=== PATIENT | female | born 1935 | race Caucasian/White ===

== ENCOUNTER → 2023-10-06 | Outpatient (CLI) | payer MEDICARE, SELFPAY ==
[2023-10-06 11:43] LABS: EXAGEN MAILED SPECIMEN
[2023-10-06 12:46] LABS: Erythrocyte Sedimentation Rate 5 mm/hr (0-30)
[2023-10-06 12:56] LABS: Absolute Lymphocyte Count 0.93 X10^3/uL (0.83-4.51); Absolute Neutrophil Count 4.7 X10^3/uL (2.0-7.7); Basophil# 0.04 X10^3/uL; Basophil% 0.6 % (0-1); Eosinophil# 0.11 X10^3/uL; Eosinophils% 1.7 % (0-5); Hematocrit 36.4 % (37-47); Hemoglobin 11.6 g/dL (12.0-15.0); Lymphocyte # 0.93 X10^3/ul (0.83-4.51); Lymphocyte % 14.7 % (19-41); Mean Corp Hgb Conc 31.9 g/dL (32-36); Mean Corpuscular Hgb 30.6 pg (27.0-32.0); Mean Platelet Vol. 9.2 fl (6.2-12.0); Monocyte# 0.47 X10^3/uL; Monocyte% 7.4 % (0-10); NRBC Flagged by Analyzer 0 % (0-5); Neutrophil # 4.73 X10^3/uL (2.7-7.7); Neutrophil % 75.1 % (47-70); Platelet Count 266 K/mm3 (150-450); RBC Distribution Width CV 14.1 % (11.6-14.6); RBC Distribution Width SD 49.5 fl (35.1-43.9); Red Blood Count 3.79 M/mm3 (4.2-5.4); White Blood Count 6.3 K/mm3 (4.4-11.0)
[2023-10-06 14:12] LABS: AST(SGOT) 40 U/L (15-37); Alanine Aminotransfer ALT/SGPT 51 U/L (13-56); Albumin, Serum 3.5 g/dL (3.2-5.0); Alkaline Phosphatase 106 U/L (45-117); Anion Gap 9 (5-15); BUN 25 mg/dL (7-18); BUN/Creat Ratio 22.5 RATIO (10-20); CRP < 2.90 mg/L (0.0-3.0); Calcium,Total 8.9 mg/dL (8.5-10.1); Chloride 108 mmol/L (98-107); Creatinine, Serum 1.11 mg/dL (0.55-1.02); EST Glomerular Filtration Rate 50 mL/min (>60); Est Glom Filt Rate - Afr Amer 60 mL/min (>60); Globulin 3.6 g/dL (2.2-4.2); Glucose 98 mg/dL (74-106); Hepatitis B Surface Antibody Non-Reactive; Hepatitis B Surface Antigen Non-Reactive (Nonreactive); Hepatitis C Antibody Non-Reactive (Nonreactive); Potassium 3.8 mmol/L (3.5-5.1); Protein, Total 7.1 g/dL (6.4-8.2); Sodium Level 141 mmol/L (136-145)
[2023-10-06 15:17] LABS: Color, Urine Yellow (Yellow); Glucose, Dipstick Normal (Normal); Ketone-Dipstick Negative (Negative); Leukocyte Esterase-Dipstick Negative /ul (Negative); Nitrite-Dipstick Negative (Negative); Occult Blood-Urine Negative /ul (Negative); Protein-Dipstick 15 mg/dl (Negative); Urine Bilirubin Dipstick Negative (Negative); Urine Clarity Clear (Clear); Urine Urobilinogen 1 mg/dl (Normal)
[2023-10-06 15:42] LABS: Protein, Urine (Random) 31.1 mg/dL (<11.9); Protein:Creat Ratio 299 mg/g CRE (0-200)
== END | disposition home or self-care (01) ==
LOC: MTLAB 10:29
PROVIDERS: PCP Nurse Practitioner Family; Referring Provider Internal Medicine Rheumatology; Visit Provider Internal Medicine Rheumatology
DX: M06.4 Inflammatory polyarthropathy (principal); R76.8 Other specified abnormal immunological findings in serum; M79.7 Fibromyalgia
CPT/HCPCS: 36415; 80053; 81002; 82570; 84156; 85025; 85652; 86140; 86706; 86803; 87340

== ENCOUNTER → 2023-10-14 | Outpatient (CLI) | payer MEDICARE, SELFPAY ==
--- NOTE | 2023-10-14 13:18 | BI_ITS ---
MAMMOGRAPHY - BILATERAL SCREENING REASON FOR EXAM: Female, 88 years old. Routine annual screening examination. PERTINENT HISTORY: Non-contributory. TECHNIQUE: Digital bilateral breast angelo (3D mammographic acquisition) in the CC and MLO projections. 2-D mediolateral oblique (MLO) and craniocaudad (CC) views of both breasts were obtained. CAD: Full Field Digital Mammography with Computer Added Detection was performed. COMPARISON: Comparison is made with prior examination of March 28, 2017. FINDINGS: Breast Composition: There are scattered areas of fibroglandular density. There are no dominant masses or suspicious calcifications. Stable bilateral secretory calcification. No other significant abnormalities are identified. There has been no significant change since the prior study. BI/SCRN MAMM (CAD)W/ANGELO BILAT IMPRESSION: Stable bilateral screening mammogram. Yearly follow-up mammogram recommended. (A) ASSESSMENT CATEGORY: BIRADS Category 2: Benign. A letter regarding these results will be sent to the patient by the facility within 30 days. Approximately 10% of breast cancers are not detected by mammography. A normal mammogram should not delay biopsy of a clinically suspicious abnormality. [id number] Electronically Signed: Theodore Ventura MD at 12:33 EDT ,
--- NOTE | 2023-10-14 13:21 | BD_ITS ---
STUDY: DUAL ENERGY X-RAY ABSORPTIOMETRY / DXA REASON FOR EXAM: Female, 88 years old. Z78.0 TECHNIQUE: Bone Mineral Density (BMD) measurements of lumbar spine and bilateral hips were obtained. COMPARISON: None. FINDINGS: Lumbar Spine (L1-L4): g/cm2 (1.033) / T-score (-0.4) / Z-score (2.5) Findings are suggestive of normal bone density with a low fracture risk. Left Femur Total: g/cm2 (0.682) / T-score (-2.1) / Z-score (0.2) Left Femoral Neck: g/cm2 (0.518) / T-score (-3.0) / Z-score (-0.5) Right Femur Total: g/cm2 (0.713) / T-score (-1.9) / Z-score (0.5) Right Femoral Neck: g/cm2 (0.560) / T-score (-2.6) / Z-score (-0.1)
== END | disposition home or self-care (01) ==
LOC: OPBD 13:12
PROVIDERS: PCP Nurse Practitioner Family; Referring Provider Nurse Practitioner Family; Visit Provider Nurse Practitioner Family
DX: Z12.31 Encounter for screening mammogram for malignant neoplasm of breast (principal); M81.0 Age-related osteoporosis without current pathological fracture
CPT/HCPCS: 77063; 77067; 77080

== ENCOUNTER → 2023-11-10 | Outpatient (CLI) | payer MEDICARE, SELFPAY ==
[2023-11-10 15:51] LABS: T4 Free Direct 1.48 ng/dL (0.76-1.46)
== END | disposition home or self-care (01) ==
LOC: BFHLAB 11:25
PROVIDERS: PCP Nurse Practitioner Family; Referring Provider Nurse Practitioner Family; Visit Provider Nurse Practitioner Family
DX: E03.9 Hypothyroidism, unspecified (principal)
CPT/HCPCS: 36415; 84439; 84443

== ENCOUNTER 2023-11-12 12:09 | Outpatient (CLI) | payer MEDICARE, SELFPAY ==
[2023-11-12 12:35] VITALS: BP 139/63; PULSE 56; RESP 16; TEMP 36.3; O2SAT 100; BMI 22.6
[2023-11-12] MEDS: Zoledronic Acid 5 MG 100 ML 300 MG IV (12:53)
[2023-11-12 13:18] VITALS: BP 143/64; PULSE 50
== END 2023-11-12 23:59 | disposition home or self-care (01) ==
LOC: MEDOUTP 12:11
PROVIDERS: PCP Nurse Practitioner Family; Referring Provider Nurse Practitioner Family; Visit Provider Nurse Practitioner Family
DX: M81.0 Age-related osteoporosis without current pathological fracture (principal)
CPT/HCPCS: 96365; A4216; J3489

== ENCOUNTER → 2023-12-10 | Outpatient (CLI) | payer MEDICARE, SELFPAY ==
[2023-12-10 10:52] LABS: Absolute Lymphocyte Count 0.56 X10^3/uL (0.83-4.51); Absolute Neutrophil Count 5.7 X10^3/uL (2.0-7.7); Basophil# 0.05 X10^3/uL; Basophil% 0.7 % (0-1); Eosinophil# 0.24 X10^3/uL; Eosinophils% 3.4 % (0-5); Hematocrit 31.7 % (37-47); Hemoglobin 10.1 g/dL (12.0-15.0); Lymphocyte # 0.56 X10^3/ul (0.83-4.51); Lymphocyte % 7.9 % (19-41); Mean Corp Hgb Conc 31.9 g/dL (32-36); Mean Corpuscular Hgb 29.8 pg (27.0-32.0); Mean Corpuscular Volume 93.5 fL (81-99); Mean Platelet Vol. 8.6 fl (6.2-12.0); Monocyte# 0.51 X10^3/uL; Monocyte% 7.2 % (0-10); NRBC Flagged by Analyzer 0 % (0-5); Neutrophil # 5.72 X10^3/uL (2.7-7.7); Neutrophil % 80.1 % (47-70); POSITIVE DIFFERENTIAL YES; Platelet Count 327 K/mm3 (150-450); RBC Distribution Width CV 14.3 % (11.6-14.6); Red Blood Count 3.39 M/mm3 (4.2-5.4); White Blood Count 7.1 K/mm3 (4.4-11.0)
[2023-12-10 11:18] LABS: BNP,B-Type NATRIURETIC PEPTIDE 389.3 pg/mL (0-100)
[2023-12-10 11:34] LABS: ALB/GLOB Ratio 0.7 RATIO (0.9-2.4); AST(SGOT) 70 U/L (15-37); Alanine Aminotransfer ALT/SGPT 87 U/L (13-56); Albumin, Serum 2.9 g/dL (3.2-5.0); Alkaline Phosphatase 103 U/L (45-117); Anion Gap 7 (5-15); BUN 23 mg/dL (7-18); BUN/Creat Ratio 19.2 RATIO (10-20); Calcium,Total 8.9 mg/dL (8.5-10.1); Chloride 110 mmol/L (98-107); EST Glomerular Filtration Rate 45 mL/min (>60); Est Glom Filt Rate - Afr Amer 55 mL/min (>60); Glucose 105 mg/dL (74-106); Potassium 3.8 mmol/L (3.5-5.1); Protein, Total 6.9 g/dL (6.4-8.2); Sodium Level 140 mmol/L (136-145)
== END | disposition home or self-care (01) ==
LOC: LAB 10:18
PROVIDERS: PCP Nurse Practitioner Family; Referring Provider Nurse Practitioner Gerontology; Visit Provider Nurse Practitioner Gerontology
DX: R06.02 Shortness of breath (principal); Z79.899 Other long term (current) drug therapy
CPT/HCPCS: 36415; 80053; 83880; 84443; 85025

== ENCOUNTER → 2023-12-18 | Outpatient (CLI) | payer MEDICARE, SELFPAY | END | disposition home or self-care (01) | LOC: CVS 09:48 | PROVIDERS: PCP Nurse Practitioner Family; Referring Provider Nurse Practitioner Gerontology; Visit Provider Nurse Practitioner Gerontology | DX: R06.02 Shortness of breath (principal); R06.09 Other forms of dyspnea; R01.1 Cardiac murmur, unspecified; I49.1 Atrial premature depolarization; M35.00 Sjogren syndrome, unspecified; I10 Essential (primary) hypertension | CPT/HCPCS: 93306; A4216 ==

== ENCOUNTER → 2023-12-29 | Outpatient (CLI) | payer MEDICARE, SELFPAY ==
[2023-12-29 11:09] LABS: Absolute Lymphocyte Count 0.88 X10^3/uL (0.83-4.51); Absolute Neutrophil Count 4.8 X10^3/uL (2.0-7.7); Basophil# 0.04 X10^3/uL; Basophil% 0.6 % (0-1); Eosinophil# 0.16 X10^3/uL; Eosinophils% 2.5 % (0-5); Hematocrit 30.2 % (37-47); Hemoglobin 9.3 g/dL (12.0-15.0); Lymphocyte # 0.88 X10^3/ul (0.83-4.51); Lymphocyte % 13.9 % (19-41); Mean Corp Hgb Conc 30.8 g/dL (32-36); Mean Corpuscular Hgb 29.5 pg (27.0-32.0); Mean Corpuscular Volume 95.9 fL (81-99); Mean Platelet Vol. 8.5 fl (6.2-12.0); Monocyte# 0.43 X10^3/uL; Monocyte% 6.8 % (0-10); NRBC Flagged by Analyzer 0 % (0-5); Neutrophil % 75.6 % (47-70); Platelet Count 345 K/mm3 (150-450); RBC Distribution Width CV 15.6 % (11.6-14.6); RBC Distribution Width SD 54.4 fl (35.1-43.9); Red Blood Count 3.15 M/mm3 (4.2-5.4); White Blood Count 6.4 K/mm3 (4.4-11.0)
[2023-12-29 11:35] LABS: Anion Gap 7 (5-15); BUN 20 mg/dL (7-18); BUN/Creat Ratio 16.3 RATIO (10-20); Calcium,Total 9.1 mg/dL (8.5-10.1); Chloride 109 mmol/L (98-107); Creatinine, Serum 1.23 mg/dL (0.55-1.02); EST Glomerular Filtration Rate 44 mL/min (>60); Est Glom Filt Rate - Afr Amer 53 mL/min (>60); Glucose 85 mg/dL (74-106); Potassium 4.6 mmol/L (3.5-5.1); Sodium Level 140 mmol/L (136-145)
[2023-12-29 11:38] LABS: BNP,B-Type NATRIURETIC PEPTIDE 409.1 pg/mL (0-100)
== END | disposition home or self-care (01) ==
PROVIDERS: PCP Nurse Practitioner Family; Referring Provider Nurse Practitioner Gerontology; Visit Provider Nurse Practitioner Gerontology
DX: R06.09 Other forms of dyspnea (principal)
CPT/HCPCS: 36415; 80048; 83880; 85025

== ENCOUNTER → 2024-01-26 | Outpatient (CLI) | payer MEDICARE, SELFPAY ==
--- NOTE | 2024-01-26 12:45 | RAD_ITS ---
INDICATION: JOYNER EXAMINATION/TECHNIQUE: X-RAY - XR Chest 2 Views COMPARISON: FINDINGS: LINES/DEVICES: None. LUNGS: Bilateral mild pleural effusions and basilar atelectasis. Interstitial prominence and mild patchy right basilar infiltrates. No pneumothorax. MEDIASTINUM AND CARDIOVASCULAR STRUCTURES: Cardiac silhouette is enlarged. Central airways and mediastinal contour are unremarkable. BONES AND SOFT TISSUES: There is a right shoulder prosthesis. RAD/Chest PA and Lateral IMPRESSION: Bilateral mild pleural effusions and basilar atelectasis. Interstitial prominence and mild patchy right basilar infiltrates. Cardiomegaly. Electronically Signed: Rodríguez Ford DO at 16:07 EST Reading Location ID and State: [facility] / [place] Tel [phone], Service support ,
[2024-01-26 13:35] LABS: Absolute Lymphocyte Count 0.69 X10^3/uL (0.83-4.51); Basophil# 0.04 X10^3/uL; Basophil% 0.5 % (0-1); Eosinophil# 0.14 X10^3/uL; Eosinophils% 1.7 % (0-5); Hematocrit 30.4 % (37-47); Lymphocyte # 0.69 X10^3/ul (0.83-4.51); Lymphocyte % 8.2 % (19-41); Mean Corp Hgb Conc 29.6 g/dL (32-36); Mean Corpuscular Volume 101.3 fL (81-99); Monocyte# 0.49 X10^3/uL; Monocyte% 5.8 % (0-10); NRBC Flagged by Analyzer 0 % (0-5); Neutrophil # 6.95 X10^3/uL (2.7-7.7); POSITIVE MORPHOLOGY YES; Platelet Count 285 K/mm3 (150-450); RBC Distribution Width CV 19.2 % (11.6-14.6); RBC Distribution Width SD 69.8 fl (35.1-43.9); White Blood Count 8.4 K/mm3 (4.4-11.0)
[2024-01-26 13:37] LABS: Differential Indicated SCAN CRITERIA MET
[2024-01-26 13:57] LABS: Anisocytosis 2+; Differential Comment SCANNED
[2024-01-26 20:06] LABS: ALB/GLOB Ratio 0.9 RATIO (0.9-2.4); AST(SGOT) 45 U/L (15-37); Alanine Aminotransfer ALT/SGPT 80 U/L (13-56); Alkaline Phosphatase 95 U/L (45-117); Anion Gap 4 (5-15); BUN 24 mg/dL (7-18); BUN/Creat Ratio 18.3 RATIO (10-20); Calcium,Total 8.8 mg/dL (8.5-10.1); Chloride 115 mmol/L (98-107); Creatinine, Serum 1.31 mg/dL (0.55-1.02); EST Glomerular Filtration Rate 41 mL/min (>60); Est Glom Filt Rate - Afr Amer 49 mL/min (>60); Globulin 3.5 g/dL (2.2-4.2); Glucose 117 mg/dL (74-106); Potassium 4.4 mmol/L (3.5-5.1); Protein, Total 6.5 g/dL (6.4-8.2); Sodium Level 142 mmol/L (136-145)
[2024-01-27 21:16] LABS: BNP,B-Type NATRIURETIC PEPTIDE 2144.6 pg/mL (0-100)
== END | disposition home or self-care (01) ==
LOC: RAD 12:20
PROVIDERS: PCP Nurse Practitioner Family; Referring Provider Physician Assistant Medical; Visit Provider Physician Assistant Medical
DX: R06.09 Other forms of dyspnea (principal)
CPT/HCPCS: 36415; 71046; 80053; 83880; 85025

== ENCOUNTER 2024-01-27 13:46 | Inpatient (IN) | payer MEDICARE, SELFPAY ==
[2024-01-27] VITALS (12 sets, daily range): BP systolic 118–173; BP diastolic 54–103; PULSE 52–67; RESP 16–29; TEMP 36.4–36.7; O2SAT 89–100; BMI 25.2; BMI 24.2
--- NOTE | 2024-01-27 14:09 | EKG12_ITS ---
Test Reason : Blood Pressure : */* mmHG Vent. Rate : 55 BPM Atrial Rate : 55 BPM P-R Int : 212 ms QRS Dur : 126 ms QT Int : 462 ms P-R-T Axes : 57 235 1 degrees QTcB Int : 441 ms Sinus bradycardia with 1st degree A-V block Right bundle branch block Abnormal ECG Confirmed by SANDEE KHAN, OMKAR ([id number]), features editor MAYRA FORREST ([id number]) on 01/28/2024 10:58:32 AM Referred By: JORJE Confirmed By: OMKAR IGNACIO MD
[2024-01-27] MEDS: Furosemide 20 MG/2 ML VIAL IV (14:33)
--- NOTE | 2024-01-27 14:48 | ED.VIS.DYS ---
HPI History of Present Illness Chief Complaint: Shortness of Breath Detail of Chief Complaint: Shortness of breath for approximately 2 months Informant: patient and family Onset/Context/Timing Onset: Month(s) Context: gradual Timing: Continuous Quality: Positive for Dyspnea on exertion and Orthopnea; Negative for PND Current Severity: Mild Maximum Severity: Severe Worsened by: Exertion and Lying flat; Not Worsened By Coughing Relieved by: Nothing Associated Symptoms cough; Negative for rhinorrhea, post nasal drip, ear pain, fever, sore throat, subjective, chills, sweats, clear sputum, white sputum, yellow sputum or green sputum Chest Pain: Positive for None Narrative Narrative: Patient is an 88-year-old woman. She has history of atrial fibrillation. She has been evaluated at [place] until she moved to [place] in July 2023. She was seen yesterday by Katharine López for the [facility]. Blood work was obtained at that time. Apparently patient Xarelto was switched to Eliquis. She is on beta-alex and amiodarone as well for atrial fibrillation. She has a history of hypertension, hyperlipidemia, DVT. She reports shortness of breath since November. She developed a head amrit since she received Reclast infusion in November and also the onset of the shortness of breath. She reports compliance with her medication and diet. She had an echocardiogram performed at outside facility which revealed a EF of 55 to 60% with stage I diastolic dysfunction. Holter monitor was performed January 2023 which revealed atrial fibrillation and atrial flutter. [facility] She had a regular rate and rhythm. There is no pedal edema. Review of outside records indicates she has history of hyperlipidemia, aortic valve disease, fibromyalgia, chronic kidney disease, atrial fibrillation, essential hypertension and Sjogren's. She is describing orthopnea to me. She also describes edema of her legs. Blood work that was obtained yesterday was reviewed. BNP was not available since the machine is not working. Chest x-ray was obtained yesterday which reveals congestive heart failure. Radiologist are patient was reviewed however in light of weight gain, pedal edema bilateral rales and orthopnea in my opinion the findings are not due to her interstitial lung disease but congestive heart failure. Patient is presently on 80 mg of Lasix. PE Risk Factors: Negative for Cancer, OCP + Smoking + > 35, Prior DVT or PE, Recent immobilization, Recent surgery or Recent travel Prior similar symptoms: Yes Recent Illness/Hospitalization: No PFSH PFSH Medical History Hyperlipidemia Aortic valve disease Cardiac arrhythmia Fibromyalgia CKD (chronic kidney disease) stage 3, GFR 30-59 ml/min Rheumatoid arthritis Osteoporosis Afib Essential (primary) hypertension Shoulder pain with history of repair of rotator cuff Sjogren syndrome Home Medications ?Medication ?Instructions ?Recorded ?Last Taken ?Type atorvastatin 40 mg tablet 40 mg PO DAILY 09/07/23 Unknown History cholecalciferol (vitamin D3) 125 125 mcg PO DAILY 09/07/23 Unknown History mcg (5,000 unit) capsule ferrous sulfate 325 mg (65 mg 325 mg PO DAILY 09/07/23 Unknown History iron) tablet gabapentin 300 mg capsule 300 mg PO BID 09/07/23 Unknown History lisinopril 40 mg tablet 40 mg PO DAILY 09/07/23 Unknown History mecobalamin (vitamin B12) 1,000 1,000 mcg PO DAILY 09/07/23 Unknown History mcg chewable tablet tizanidine 2 mg capsule 2 mg PO Q8H PRN muscle spasticity 09/07/23 Unknown History hydrochlorothiazide 25 mg tablet 25 mg PO Q12H 11/12/23 Unknown History apixaban 2.5 mg tablet (Eliquis) 2.5 mg PO BID Pt wants a 90 day 12/16/23 Unknown Rx supply instead of 30 d/t expense #180 tabs amiodarone 200 mg tablet 100 mg PO DAILY 01/27/24 Unknown History hydralazine 25 mg tablet 25 mg PO BID 01/27/24 Unknown History hydroxychloroquine 200 mg tablet 200 mg PO 01/27/24 Unknown History propranolol 40 mg tablet mg PO 01/27/24 Unknown History Allergy/AdvReac Type Severity Reaction Status Date / Time ciprofloxacin (From Cipro) Allergy Intermediate NEEDS Verified 01/27/24 13:51 FOLLOW-UP duloxetine Allergy Intermediate NEEDS Verified 01/27/24 13:51 FOLLOW-UP ibuprofen Allergy Intermediate NEEDS Verified 01/27/24 13:51 FOLLOW-UP meloxicam Allergy Intermediate NEEDS Verified 01/27/24 13:51 FOLLOW-UP Penicillins Allergy Intermediate NEEDS Verified 01/27/24 13:51 FOLLOW-UP sulfamethoxazole (From Allergy Intermediate NEEDS Verified 01/27/24 13:51 Sept) FOLLOW-UP trimethoprim (From ) Allergy Intermediate NEEDS Verified 01/27/24 13:51 FOLLOW-UP Surgical History History of appendectomy History of cardiac radiofrequency ablation (RFA) S/P hernia repair Social History Smoking Status: Never smoker alcohol intake: never substance use type: does not use ROS ROS ED Constitutional Constitutional ED: Reports other; Denies chills, fever(s), sweats or weight loss Eyes Eyes: Denies blurry vision or change in vision ENT ENT ED: Denies ear pain or rhinorrhea Cardiovascular Cardiovascular: Reports orthopnea; Denies chest pain, palpitations or paroxysmal nocturnal dyspnea Respiratory/Chest Respiratory/Chest: Reports cough, dyspnea, dyspnea on exertion and orthopnea; Denies paroxysmal nocturnal dyspnea or sputum Gastrointestinal Gastrointestinal: Reports other Details: Patient reports dark stool but not black stool. This is probably due to the fact that she is on ferrous sulfate. ; Denies abdominal pain, diarrhea, melena, nausea or vomiting Genitourinary Genitourinary ED: Denies dysuria, hematuria or urinary frequency Musculoskeletal Musculoskeletal: Denies arthralgias or myalgias Integumentary Denies abscess, Abrasions or rash Neurologic Neurologic: Reports weakness; Denies headache(s) or paresthesias Psychiatric Psychiatric: Denies anxiety Endocrine Endocrinology: Denies cold intolerance or heat intolerance Hematologic/Lymphatic Hematologic/Lymphatic: Reports easy bleeding and easy bruising EXAM Physical Exam Const Vital Signs: 01/27/24 13:48 01/27/24 13:51 01/27/24 14:03 Temperature 97.7 F L 97.7 F L Temperature Source Oral Oral Pulse Rate 61 60 Respiratory Rate 27 H 25 H Respiratory Effort Short of Breath Accessory Muscle Use Respiratory Depth Shallow Respiratory Pattern Tachypnea Blood Pressure 118/91 H 173/99 H Blood Pressure Mean 100 123 Pulse Ox 95 96 Oxygen Delivery Method Room Air Room Air Room Air 01/27/24 14:51 01/27/24 15:00 01/27/24 16:00 Temperature 97.7 F L 97.7 F L 97.7 F L Temperature Source Oral Oral Oral Pulse Rate 53 L 67 52 L Respiratory Rate 26 H 22 H 23 H Respiratory Effort Respiratory Depth Respiratory Pattern Blood Pressure 163/80 H 153/103 H 161/54 H Blood Pressure Mean 107 119 89 Pulse Ox 95 96 95 Oxygen Delivery Method Room Air Room Air Room Air 01/27/24 16:22 Temperature 97.6 F L Temperature Source Pulse Rate 56 L Respiratory Rate 29 H Respiratory Effort Respiratory Depth Respiratory Pattern Blood Pressure 128/76 H Blood Pressure Mean 93 Pulse Ox 97 Oxygen Delivery Method Positive well nourished and well developed General Appearance ED: well developed and pallor; Negative for NAD HEENT Reports moist mucous membranes HEENT Narrative: Head is atraumatic and normocephalic. Ears are normal. Nares patent. Posterior pharynx is normal. Eyes Negative for PERRL or EOMs intact bilaterally General Eye ED: Negative for pale conjunctiva or scleral icterus Neck no lymphadenopathy, supple, no meningeal signs and no JVD Neck Narrative: No JVD at 90 degrees. Resp normal respiratory effort and No clear to auscultation bilaterally Auscultation: rales right lower and left base and diminished lung sounds bilateral throughout; Negative for rhonchi or wheezes Cardio regular rhythm, S1 normal heart sound, S2 normal heart sound and no murmurs Rate: bradycardia GI non-tender, non-distended and no masses Auscultation: normoactive bowel sounds Palpation: soft Back/Spine no CVA tenderness Extremity Negative for normal to inspection Extremity Narrative: Pitting edema feet and right and left leg. General Extremety ED: Yes edema General Extremity: edema Neuro oriented x3 and CN's II-XII intact bilaterally Cherrie Coma Scale: document GCS findings Spontaneous Obeys Commands Oriented 15 Sensorium / Orientation: alert Psych mental status grossly normal Skin no wounds and skin turgor normal General Skin Exam: pallor; Negative for jaundice MDM MDM MDM Narrative Medical decision making narrative: X-ray from yesterday was reviewed. In my opinion patient has heart failure. Patient was treated with 80 mg Lasix, which is her normal daily dose. Blood work was repeated. BMP was ordered. I was informed that the BMP machine is not functioning patient does not have a living will. History & Record Review Additional record(s) reviewed:: Prior outpatient record (Posterior cardiology office note authored by Katharine López and records from [facility]) and Prior labs Lab Data Attestation: I reviewed the patient's lab results. Lab results narrative: Troponin is normal at 27 with weeks to months of symptoms. Labs were not repeated that were performed yesterday other than the BNP since it had not resulted. BNP on December 29, 2023 was 409. BMP from yesterday is still pending as is today's because the machine is not functional. Labs: Laboratory Results - last 24 hr 01/27/24 13:58 Troponin I High Sens 27 EKG Initial EKG: Attestation: I personally reviewed and interpreted this EKG as follows: Interpretation: Sinus Bradycardia (Rate is 55. There is a first-degree AV block with WV interval of 212 ms. QRS duration is prolonged 126 ms and morphology is consistent with right bundle branch block. QT duration is 462 ms.) Management Discussion w/another healthcare provider: Hospitalist (Case was discussed with hospitalist Dr. Kingston. Patient be admitted to PCU.) Discharge Plan Triage Chief Complaint: Shortness of Breath ED Provider: Eyad Cuellar Dx/Rx/DC Orders Clinical Impression: Acute exacerbation of CHF (congestive heart failure), Sjogren syndrome, Aortic valve disease, Dyspnea on minimal exertion, Essential (primary) hypertension, CKD (chronic kidney disease) stage 3, GFR 30-59 ml/min, JOYNER (dyspnea on exertion), Bradycardia, sinus, First degree heart block, Right bundle branch block Prescriptions: No Action atorvastatin 40 mg tablet 40 mg PO DAILY gabapentin 300 mg capsule 300 mg PO BID lisinopril 40 mg tablet 40 mg PO DAILY tizanidine 2 mg capsule 2 mg PO Q8H PRN (Reason: muscle spasticity) ferrous sulfate 325 mg (65 mg iron) tablet 325 mg PO DAILY mecobalamin (vitamin B12) 1,000 mcg tablet,chewable 1,000 mcg PO QMWF cholecalciferol (vitamin D3) 125 mcg (5,000 unit) capsule 125 mcg PO QODAY hydralazine 25 mg tablet 25 mg PO BID hydroxychloroquine 200 mg tablet 200 mg PO amiodarone 200 mg tablet 100 mg PO DAILY propranolol 40 mg tablet PO hydrochlorothiazide 25 mg tablet 25 mg PO Q12H Eliquis 2.5 mg tablet 2.5 mg PO BID Qty: 180 3RF Primary Care Provider: Keke Suarez Referrals: Keke Suarez, RN PSYCHIATRIC-C [Primary Care Provider] - Print Language: Slovak Disposition Disposition: Acute Care Hospital [facility]
[2024-01-27 15:18] LABS: Troponin-I HS 27 pg/mL (3.0-54.0)
--- NOTE | 2024-01-27 16:56 | PCM.HP.STD ---
HPI - General General Date of Admission: 01/27/24 Date of Service: 01/27/24 Chief Complaint: SOB and leg swelling HPI Narrative JONNA GIRON, is a 88 F history of hypertension, A-fib, heart failure with preserved ejection fraction, and tremors who presented to [facility] ED 01/27/2024 with increased shortness of breath since November that significantly worsened over the past 1 week. She was seen yesterday in the cardiology office and had chest x-ray concerning for fluid overload and lab work was ordered. Given patient's continued to worsen she presented today to the ED. In the ED she appeared clinically overloaded and given the significance of her symptoms it was felt she needed admission for IV Lasix so hospitalist contacted for admission. Patient evaluated with daughter at bedside. She reports she had a Reclast injection in November and since that time has had progressive swelling in her extremities and increased dyspnea on exertion to the point she cannot even walk 5 to 7 feet without having to stop, additionally increased swelling in her lower extremities. Patient with poor p.o. intake due to being unable to get up to get her food. Symptoms significantly worsened over the past 1 week and patient has noted she has developed some cough but no fever. Does have dark stools since she started taking iron but she is unsure why she is taking iron, notes she does get constipated sometimes because of this. No chest pain. [facility] Medical History Hyperlipidemia Aortic valve disease Cardiac arrhythmia Fibromyalgia CKD (chronic kidney disease) stage 3, GFR 30-59 ml/min Rheumatoid arthritis Osteoporosis Afib Essential (primary) hypertension Shoulder pain with history of repair of rotator cuff Sjogren syndrome Home Medications ?Medication ?Instructions ?Recorded ?Last Taken ?Type atorvastatin 40 mg tablet 40 mg PO DAILY 09/07/23 Unknown History cholecalciferol (vitamin D3) 125 125 mcg PO QODAY 09/07/23 Unknown History mcg (5,000 unit) capsule ferrous sulfate 325 mg (65 mg 325 mg PO DAILY 09/07/23 Unknown History iron) tablet gabapentin 300 mg capsule 300 mg PO BID 09/07/23 Unknown History lisinopril 40 mg tablet 40 mg PO DAILY 09/07/23 Unknown History mecobalamin (vitamin B12) 1,000 1,000 mcg PO QMWF 09/07/23 Unknown History mcg chewable tablet tizanidine 2 mg capsule 2 mg PO Q8H PRN muscle spasticity 09/07/23 Unknown History hydrochlorothiazide 25 mg tablet 25 mg PO Q12H 11/12/23 Unknown History apixaban 2.5 mg tablet (Eliquis) 2.5 mg PO BID Pt wants a 90 day 12/16/23 Unknown Rx supply instead of 30 d/t expense #180 tabs amiodarone 200 mg tablet 100 mg PO DAILY 01/27/24 Unknown History hydralazine 25 mg tablet 25 mg PO BID 01/27/24 Unknown History hydroxychloroquine 200 mg tablet 200 mg PO 01/27/24 Unknown History propranolol 40 mg tablet mg PO 01/27/24 Unknown History Allergy/AdvReac Type Severity Reaction Status Date / Time ciprofloxacin (From Cipro) Allergy Intermediate NEEDS Verified 01/27/24 13:51 FOLLOW-UP duloxetine Allergy Intermediate NEEDS Verified 01/27/24 13:51 FOLLOW-UP ibuprofen Allergy Intermediate NEEDS Verified 01/27/24 13:51 FOLLOW-UP meloxicam Allergy Intermediate NEEDS Verified 01/27/24 13:51 FOLLOW-UP Penicillins Allergy Intermediate NEEDS Verified 01/27/24 13:51 FOLLOW-UP sulfamethoxazole (From Allergy Intermediate NEEDS Verified 01/27/24 13:51 Octra) FOLLOW-UP trimethoprim (From Octra) Allergy Intermediate NEEDS Verified 01/27/24 13:51 FOLLOW-UP Surgical History History of appendectomy History of cardiac radiofrequency ablation (RFA) S/P hernia repair Social History Smoking Status: Never smoker alcohol intake: never substance use type: does not use ROS ROS Narrative General: Denies fever/chills HENT: Sometimes gets headaches, denies stuffy nose, denies sore throat EYES: Denies changes in vision Resp: Slight dry cough over the past week, increased shortness of breath since November with subacute worsening past 1 week Cardiac: Denies chest pain GI: Denies abdominal pain, does get some constipation and dark stool now that she is on iron, denies nausea/vomiting : Denies changes in urination Extremity: Increased swelling in lower extremities MSK: Some generalized weakness Neuro: Denies any numbness/tingling Heme: Gets some random bruising at times Skin: Some peeling skin on heels and she has been sitting down so often recently Psychiatric: No complaints voiced Vital Signs Vital Signs Vital Signs: 01/27/24 13:48 01/27/24 13:51 01/27/24 14:03 Temperature 97.7 F L 97.7 F L Temperature Source Oral Oral Pulse Rate 61 60 Respiratory Rate 27 H 25 H Respiratory Effort Short of Breath Accessory Muscle Use Respiratory Depth Shallow Respiratory Pattern Tachypnea Blood Pressure 118/91 H 173/99 H Blood Pressure Mean 100 123 Pulse Ox 95 96 Oxygen Delivery Method Room Air Room Air Room Air 01/27/24 14:51 01/27/24 15:00 01/27/24 16:00 Temperature 97.7 F L 97.7 F L 97.7 F L Temperature Source Oral Oral Oral Pulse Rate 53 L 67 52 L Respiratory Rate 26 H 22 H 23 H Respiratory Effort Respiratory Depth Respiratory Pattern Blood Pressure 163/80 H 153/103 H 161/54 H Blood Pressure Mean 107 119 89 Pulse Ox 95 96 95 Oxygen Delivery Method Room Air Room Air Room Air 01/27/24 16:22 Temperature 97.6 F L Temperature Source Pulse Rate 56 L Respiratory Rate 29 H Respiratory Effort Respiratory Depth Respiratory Pattern Blood Pressure 128/76 H Blood Pressure Mean 93 Pulse Ox 97 Oxygen Delivery Method Weight Weight: 51.2 kg Body Mass Index (BMI) 25.2 Physical Exam Narrative General: Alert, no apparent distress HEENT: Atraumatic, normocephalic Eyes: Extraocular movements grossly intact Neck: Supple Respiratory: Crackles bilaterally with some increased respiratory effort Cardiovascular: Regular rate GI: Soft, felt a little bit tender diffusely without rebound, guarding, rigidity, nondistended Extremities: 1-2+ bilateral lower extremity edema Musculoskeletal: Moving all extremities Neuro: No overt focal neurological deficits, does have noted head tremor Skin: No rashes appreciated Psych: Cooperative Results Lab / Micro Data Labs: Laboratory Results - last 24 hr 01/27/24 13:58: Troponin I High Sens 27 Assessment & Plan Assessment/Plan (1) Acute exacerbation of CHF (congestive heart failure): PLAN: Plan #Acute exacerbation of chronic heart failure with preserved ejection fraction -Admit to telemetry -BNP pending -CXR on 01/25 consistent with CHF -Continue IV lasix -Last echo 12/20/2023 with EF 55 and PASP of 60 mmHg but did have echo 03/02/2023 in [place] that reported out grade 1 diastolic dysfunction -As echo was obtained last month so repeat not ordered -Daily weights, I's and O's -Fluid restriction, heart healthy diet # Increased dyspnea -Suspect secondary to exacerbation of heart failure however given the more acute nature over the past 1 week with cough will swab for COVID and respiratory viruses to verify there is not a confounding variable -IV Lasix as above # Paroxysmal atrial fibrillation -Continue amiodarone and Eliquis -Per cardiology note patient is taking Eliquis but medication list now saying on hold due to anemia -Will need to clarify -No overt bleeding reported or appreciated so Eliquis has been continued -Of note patient reports dark stools since she started iron but notes that this was directly correlated # Anemia -Unclear etiology but does not necessarily appear new -Will obtain iron studies in the a.m. -No overt bleeding appreciated at this time so Eliquis continued -If iron deficient may need further evaluation which can likely be done in outpatient basis # History of vascular abnormality -Patient reports she followed with vascular surgery for 2 years after she had vascular intervention and had resultant blood clots in her leg but is unsure what the procedure was or what exactly she is being followed for -Was post to have an appointment in October but canceled it as she was moving to [place], they advised her to establish locally with a vascular doctor -Would benefit from referral to Dr. Mckeon on discharge # Head tremors -Patient on propranolol from her PCP on an outpatient basis, reports she has felt worse since she increased dose which seems to be the 40 mg, will decrease to 10 mg twice daily with holding parameters -Will need follow-up with PCP #Hypertension -Continue lisinopril and hydrochlorothiazide, unclear if she is still taking hydralazine-awaiting medication confirmation, patient was unsure what medication she was on # CKD stage III b -Appears to be at baseline -Avoid nephrotoxic agents -Daily BMPs #Debility -Patient with significant difficulty getting around due to her shortness of breath and weakness -PT/OT -Case management -Patient and daughter open to placement or home health if it is deemed necessary #DVT ppx: On Eliquis Perla Kingston MD Charges/Coding Visit Charges Inpatient E&M: 55328 Init Hosp L2
[2024-01-27] MEDS: hydroCHLOROthiazide 25 MG Tablet PO (18:19)
[2024-01-27] MEDS: Gabapentin 300 MG Capsule PO (21:37)
[2024-01-27] MEDS: Docusate Sodium 100 MG Capsule PO (21:37)
[2024-01-27] MEDS: Propranolol 10 MG Tablet PO (21:37)
[2024-01-27] MEDS: Ensure Plus High Protein 120 ML LIQUID PO (21:37)
[2024-01-27] MEDS: 0.9% Saline Lock 10 ML Syringe IV (21:38)
[2024-01-28] VITALS (8 sets, daily range): BP systolic 107–144; BP diastolic 44–87; PULSE 43–54; RESP 16–20; TEMP 36.2–36.8; O2SAT 94–100; BMI 24.2
[2024-01-28 07:13] LABS: Absolute Lymphocyte Count 1.28 X10^3/uL (0.83-4.51); Absolute Neutrophil Count 4.8 X10^3/uL (2.0-7.7); Basophil# 0.04 X10^3/uL; Basophil% 0.6 % (0-1); Eosinophil# 0.22 X10^3/uL; Eosinophils% 3.2 % (0-5); Hemoglobin 8.1 g/dL (12.0-15.0); Lymphocyte # 1.28 X10^3/ul (0.83-4.51); Lymphocyte % 18.6 % (19-41); Mean Corpuscular Hgb 30.3 pg (27.0-32.0); Mean Corpuscular Volume 101.1 fL (81-99); Monocyte# 0.54 X10^3/uL; Monocyte% 7.8 % (0-10); NRBC Flagged by Analyzer 0 % (0-5); Neutrophil # 4.79 X10^3/uL (2.7-7.7); Neutrophil % 69.4 % (47-70); POSITIVE MORPHOLOGY YES; Platelet Count 223 K/mm3 (150-450); RBC Distribution Width CV 19.3 % (11.6-14.6); RBC Distribution Width SD 69.7 fl (35.1-43.9); Red Blood Count 2.67 M/mm3 (4.2-5.4); White Blood Count 6.9 K/mm3 (4.4-11.0)
[2024-01-28 07:23] LABS: Differential Indicated SCAN CRITERIA MET
[2024-01-28 08:00] LABS: Anion Gap 5 (5-15); BUN 22 mg/dL (7-18); BUN/Creat Ratio 17.2 RATIO (10-20); Calcium,Total 8.3 mg/dL (8.5-10.1); Chloride 112 mmol/L (98-107); Cholesterol 81 mg/dL (200); Creatinine, Serum 1.28 mg/dL (0.55-1.02); EST Glomerular Filtration Rate 42 mL/min (>60); Est Glom Filt Rate - Afr Amer 51 mL/min (>60); Estimated Creatinine Clearance 22.66 ml/min; Ferritin 217 ng/mL (8-252); Glucose 86 mg/dL (74-106); High Density Lipoprotein 40 mg/dL; Iron 34 ug/dL (50-170); Iron Binding Capacity,Total 214 ug/dL (250-450); PERCENT IRON SATURATION 15.9 % (15.0-55.0); Potassium 3.9 mmol/L (3.5-5.1); Sodium Level 142 mmol/L (136-145); Triglycerides 55 mg/dL; Very Low Density Lipoprotein 11 mg/dL (5-40)
[2024-01-28 09:54] LABS: Anisocytosis 2+; Differential Comment SCANNED; Platelet Estimate ADEQUATE (ADEQ); Polychromasia 1+
[2024-01-28 09:55] LABS: Crenated RBC 1+; Macrocytosis 1+; Ovalocyte 1+; Schistocytes 1+; Tear Drop Cell 1+
[2024-01-28] MEDS: Furosemide 40 MG/4 ML Vial IV (10:21)
[2024-01-28] MEDS: Docusate Sodium 100 MG Capsule PO ×2 (10:21→22:05)
[2024-01-28] MEDS: Ferrous Sulfate 325 MG Tablet PO (10:21)
[2024-01-28] MEDS: Lisinopril 40 MG Tablet PO (10:22)
[2024-01-28] MEDS: hydroCHLOROthiazide 25 MG Tablet PO (10:22)
[2024-01-28] MEDS: Atorvastatin Calcium 40 MG Tablet PO (10:22)
[2024-01-28] MEDS: 0.9% Saline Lock 10 ML Syringe IV (10:23)
[2024-01-28] MEDS: Gabapentin 300 MG Capsule PO ×2 (10:26→22:05)
[2024-01-28] MEDS: Ensure Plus High Protein 120 ML LIQUID PO ×2 (10:26→22:05)
--- NOTE | 2024-01-28 11:51 | EKG12_ITS ---
Test Reason : AFIB Blood Pressure : */* mmHG Vent. Rate : 45 BPM Atrial Rate : 45 BPM P-R Int : 222 ms QRS Dur : 124 ms QT Int : 676 ms P-R-T Axes : 57 247 141 degrees QTcB Int : 584 ms Sinus bradycardia with 1st degree A-V block Right bundle branch block Abnormal ECG When compared with ECG of 27-Jan-2024 14:25, T wave inversion more evident in Anterior leads QT has lengthened Confirmed by SANDEE KHAN, OMKAR ([id number]), newspaper or periodical editor BIJAN RAMOS ([id number]) on 01/29/2024 9:56:56 AM Referred By: Confirmed By: OMKAR IGNACIO MD
--- NOTE | 2024-01-28 12:09 | ST.MBS ---
Modified Barium Swallow Patient Information Study Date: 01/28/24 Study Time: 14:10 Direct Billable Minutes: 111 Total Minutes procedure & reportin Diagnosis: Acute exacerbation of CHF I50.9 Referring Physician: Clotilde Tamayo Reason for Referral: Objectively assess swallow function, assess risk for aspiration, and determine recommendations for least restrictive diet textures and compensatory strategies to improve safety of swallow. Medical History: PMH: HLD, Aortic valve disease, Cardiac arrhythmia, Fibromyalgia, CKD stage 3, RA, Osteoporosis, Afib, HTN, Shoulder pain with history of repair of rotator cuff, Sjogren syndrome. Pt presented to [facility] ED 01/27/2024 w/ increased SOB since November significantly worsening the week before admission. She was seen day before admission in the cardiology office and had chest x-ray concerning for fluid overload and lab work was ordered. Given patient continued to worsen she presented to the ED. In the ED she appeared clinically overloaded and given the significance of her symptoms it was felt she needed admission for IV Lasix so hospitalist contacted for admission. Patient has also had poor p.o. intake due to being unable to get up to get her food. She was referred for ST consult due to complaints of foods sticking in her throat when she swallows. CXR 01/27/24 IMPRESSION: Bilateral mild pleural effusions and basilar atelectasis. Interstitial prominence and mild patchy right basilar infiltrates. Cardiomegaly. BSE 01/28/24 recommended Easy to Chew textures / thin liquids and recommended MBSS to further assess pt's concerns for swallowing difficulty and retention of foods after the swallow. Current Diet Ordered: Easy to Chew textures / Thin liquids Dentition: Natural Teeth, Upper Dentures and Partials (Lower) Mental Status: WNL Respiratory Status: Oxygenating on Room Air Penetration-Aspiration Scale Penetration-Aspiration Scale: OBJECTIVE ASSESSMENT OF SWALLOW FUNCTION (QUANTITATIVE ? PER TRIAL): PENETRATION / ASPIRATION SCALE (OVIEDO): 1 = does not enter airway 2 = enters airway/above vocal folds/ejected 3 = enters airway/above vocal folds/not ejected 4 = enters airway/contacts vocal folds/ejected 5 = enters airway/contacts vocal folds/not ejected 6 = enters airway/below vocal folds/ejected 7 = enters airway/below vocal folds/not ejected despite effort 8 = enters airway/below vocal folds/no effort VIDEOFLOROSCOPIC SCALE SCORE (OVIEDO): Grade I = aspiration of material that has penetrated into the laryngeal vestibule, intact cough reflex Grade II = aspiration < 10 % of the bolus, intact cough reflex Grade III = aspiration of < 10 % of the bolus, reduced cough reflex or aspiration of > 10 % of the bolus, intact cough reflex Grade IV = aspiration of > 10 % of the bolus, reduced cough reflex Penetration-Aspiration Scale Score Thin Liquid via teaspoon: Result: 1= does not enter airway Thin Liquid via teaspoon Trial 2: Result: 2= enter airway/above vocal folds/ejected Thin Liquid via large single sip: cup: Result: 1= does not enter airway Durand Thick Liquid via small single sip: cup: Result: 1= does not enter airway Pudding via teaspoon: Result: 1= does not enter airway Comment: Esophageal screen - Pouch-like retention of barium in the upper esophagus. Retention of barium pudding in the mid esophagus. Thin Liquid via single sip: straw: Result: 5= enters airways/contacts vocal folds/not ejected Comment: Esophageal screen - Pouch-like collection of pudding barium in upper esophagus fully cleared w/ liquid wash. Barium in middle esophagus mostly cleared w/ liquid wash. 1/2 Cookie: Result: 1= does not enter airway Comment: Esophageal screen - Complete clearance. Thin Liquid via small single sip: cup: Result: 2= enter airway/above vocal folds/ejected Oral Phase Labial Seal: No Labial Escape Tongue Control During Bolus Hold: Posterior escape of greater than half of bolus Bolus Preparation/Mastication: Slow prolonged chewing/mashing with complete recollection Bolus Transport/Lingual Motion: Slowed tongue motion Oral Residue: Residue collection on oral structures Pharyngeal Phase Initiation of Pharyngeal Swallow: Bolus head in pyriforms Soft Palate Elevation: Trace column of contrast/air between soft palate and pharyngeal wall Laryngeal Elevation: Partial superior movement thyroid cart/partial apprx aryt-epig petiole Anterior Hyoid Excursion: Partial anterior movement Epiglottic Movement: Complete inversion Laryngeal Vestibule Closure at Height of Swallow: Incomplete; narrow column of air/contrast in laryngeal vestibule Pharyngeal Stripping Wave: Present - complete Pharyngoesophageal Segment Opening: Complete distension and complete duration; no obstruction of flow Tongue Base Retraction: Trace column of contrast between tongue base & post. pharyngeal wall Pharyngeal Residue: Trace residue within or on pharyngeal structures Esophageal Phase Esophageal Clearance: Esophageal retention Diagnosis/Impression Diagnosis: Mild oropharyngeal dysphagia R13.12; Mild esophageal dysphagia R13.14 Impression: The oral phase is primarily marked by... -Premature posterior loss of thin liquids to the pharynx prior to swallow onset. With sip of thin liquid via straw, barium spilled to the laryngeal vestibule prior to swallow onset increasing risk for aspiration before the swallow. -Slowed, but complete mastication. -Delayed tongue motion for A-P transport. The pharyngeal phase is primarily marked by... -Delayed swallow onset. -Decreased airway closure due to mildly reduced laryngeal elevation, as well as decreased anterior hyoid excursion. -Laryngeal penetration of thin liquids via straw to the vocal folds w/o complete ejection placing pt at risk for post prandial aspiration; however, no aspiration was observed during the MBSS. The esophageal phase is primarily marked by... -The patient has a small, pouch-like collection of pudding barium in the upper esophagus, which ADJUNCT INSTRUCTOR IN ECONOMICS reviewed w/ radiologist, Dr. Ventura. He confirmed that the patient has a small Zenker's diverticulum. The diverticulum appeared to clear w/ one liquid wash. No need for ENT consult for surgical intervention at this time. -Retention of pudding in middle esophagus, which mostly cleared w/ liquid wash. Image 1. Small Zenker's diverticulum at the level of C5. Recommendations Diet: Regular Textures (Easy to Chew - IDDSI Level 7) and Thin Liquids Comment: If sensation of retention does not clear w/ liquid wash or if experiencing s/s of reflux/regurgitation, STOP and resume meal at a later time. Compensatory Strategies: Small Bites, Small Sips, No Straws, Slow Rate (Sips 1 at a time), Alternate bites/solids and sips/liquids (1:1 ratio), Sitting upright and Remain sitting upright for 30 minutes after PO intake Supervision: Distant Supervision Recommend Repeat Modified Barium Swallow: TBD (If worsening s/s of aspiration or worsening sensation of retention, will recommend repeat MBSS due to presence of small Zenker's diverticulum.) Need for Skilled Speech Therapy Services: Yes Comment: -Train the patient in use of strategies to decrease risk for aspiration and reflux aspiration. -Ongoing assessment of diet tolerance of recommended textures. -Train the patient in oropharyngeal exercise program to improve bolus control, swallow onset, and airway closure during the swallow (lingual resistance, Favian, CTAR). Education Completed: 1. Described result of evaluation. Status Active ST Patient: Active Contact Information [facility] Speech Therapy:: Myrtle Ceja M.A. CCC-ADJUNCT INSTRUCTOR IN ECONOMICS? Speech-Language Pathologist?? [facility] [address] [place] [address]? [email or web address]?? [phone]
--- NOTE | 2024-01-28 13:45 | CASEMGMT ---
AMNA ORLANDO Face to Face with patient for initial transition planning/care coordination assessment. AMNA ORLANDO introduced self and role at [facility]. Patient lying in bed, alert and oriented, granddaughter at bedside. Patient willing to participate in assessment and is able to answer all questions appropriately. Care providers, pharmacy, and demographics verified. Strata: 2 PCP: Erick Specialists: FLORENCE, tube handler; RA Desmond; ortho Preferred Pharmacy:[facility] Insurance: [place] Prescription Benefit: yes Living Will/HPOA: Yes, granddaughter Amber Meza LNOK: daughter, granddaughter Living Arrangements: Patient lives with daughter in a single story home with 2 steps and grab bars to enter the home. Patient states she is independent at home but has had increased weakness at home. Transportation: daughter, granddaughter DME/HHC: Patient has shower chair, grab bars, walker, and rollator at home. No previous HHC or SNF. Patient wishes to discharge home, will monitor progress with therapy. AMNA ORLANDO discussed possible HHC vs SNF at discharge and patient is open to recommendations. Patient states she has no further needs or concerns at this time. CM to follow for discharge planning needs that may arise. Disposition Plan: TBD, anticipate HHC vs SNF pending progress with therapy. Debbie RILEY, RN, CM
--- NOTE | 2024-01-28 14:41 | CHAPLAIN ---
Type of Pastoral Visit ___ Initial Visit ___ Follow-up Visit ___ On-call Visit ___ General Patient Visit ___ Spiritual Assessment ___ Family Conference ___ Bereavement ___ Rapid Response ___ Code Blue ___ Other (describe below) Pastoral Care Referral From ___ Patient ___ Family ___ Nurse ___ Physician ___ Chief Electrician ___ Pharmacist In Charge ___ Other (describe below) Sacrament/Intervention ___ Active listening ___ Anointing ___ Jewish ___ Bereavement ___ Communion ___ Karlene exploration ___ ___ Life review ___ Prayer ___ Reconciliation ___ Sacrament of Sick ___ Supportive presence ___ Wedding ___ Other (describe below) Pastoral Comments patient was sleeping soundly and was not awakened
--- NOTE | 2024-01-28 15:36 | PN_ITS ---
Subjective Subjective Patient seen and examined. She was admitted with a complaint of shortness of breath and has been managed for acute exacerbation of heart failure. She states feels much better today and feels her breathing has improved. He denies any coughing or chest pain, palpitations, dizziness, nausea or vomiting. Review of systems otherwise negative. Objective Data Objective Data Vital Signs: Vital Signs Temp Pulse Resp BP Pulse Ox O2 Del Method O2 Flow Rate 97.9 F 46 L 20 H 109/87 H 100 Nasal Cannula 2 01/28/24 10:19 01/28/24 10:19 01/28/24 10:19 01/28/24 10:19 01/28/24 10:19 01/28/24 10:01/28/24 10:19 Oxygen Flow Rate (L/min) 2 Oxygen Delivery Method Nasal Cannula Weight: 108 lb 0.424 oz Body Mass Index (BMI) 24.2 Intake & Output: Intake and Output for Last 24 Hours 01/26/24 01/27/24 01/28/24 23:59 23:59 23:59 Intake Total 60 / 180 420 / 420 Output Total 1450 / 1450 Balance 60 / -520 -1030 / -1030 Lab / Micro Data 01/28/24 06:24 01/28/24 06:24 Labs: Laboratory Results - last 24 hr 01/27/24 13:58: B-Natriuretic Peptide 2014.0 H 01/28/24 06:24: WBC 6.9, RBC 2.67 L, Hgb 8.1 L, Hct 27.0 L, MCV 101.1 H, MCH 30.3, MCHC 30.0 L, RDW Std Deviation 69.7 H, RDW Coeff of Rohit 19.3 H, Plt Count 223, MPV 9.0, Immature Gran % (Auto) 0.400, Neut % (Auto) 69.4, Lymph % (Auto) 18.6 L, [place] % (Auto) 7.8, Eos % (Auto) 3.2, Baso % (Auto) 0.6, Absolute Neuts (auto) 4.8, Absolute Lymphs (auto) 1.28, Nucleated RBC % 0, Differential Comment SCANNED, Platelet Estimate ADEQUATE, Polychromasia 1+, Anisocytosis 2+, Macrocytosis 1+, Tear Drop Cells 1+, Ovalocytes 1+, Crenated Cell 1+, Schistocytes 1+, Sodium 142, Potassium 3.9, Chloride 112 H, Carbon Dioxide 25.0, Anion Gap 5, BUN 22 H, Creatinine 1.28 H, Estim Creat Clear Calc 22.66, Est GFR (MDRD) Af Amer 51 L, Est GFR (MDRD) Non-Af 42 L, BUN/Creatinine Ratio 17.2, Glucose 86, Calcium 8.3 L, Iron 34 L, TIBC 214 L, Iron Saturation 15.9, Ferritin 217, Triglycerides 55, Cholesterol 81, LDL Cholesterol 30, VLDL Cholesterol 11, HDL Cholesterol 40, TSH 2.800 Micro: Microbiology 01/27/24 19:28 Mucosa - Nasopharyngeal Respiratory Panel (PCR) - Final 01/27/24 19:35 Nasal Secretion SARS-CoV-2 Antigen (Rapid) - Final Physical Exam Const alert, oriented x3 and no apparent distress Constitutional Narrative: frail General Appearance: cooperative and well developed HEENT normocephalic, head/scalp atraumatic, moist oral mucous membranes and oropharynx normal Eyes PERRL and EOMs intact bilaterally Neck no lymphadenopathy and supple Lymph Lymphatic: no lymphadenopathy noted, no lymphedema noted and lymphedema Resp Resp Narrative: mildly diminished breath sounds bibasally, no wheezes or crackles. On 2L of oxygen by nasal canula Cardio regular rhythm, S1 normal heart sound, S2 normal heart sound and no murmurs Rate: bradycardia GI normal to inspection, nondistended, normoactive bowel sounds, soft to palpation, non-tender and non-distended Extremity normal capillary refill, no clubbing, cyanosis or edema and no calf tenderness General Extremity: no tenderness to palpation of joints or extremities Skin General Skin Exam: no breakdown Neuro CN's II-XII intact bilaterally, no focal motor deficits, no sensory deficits noted and deep tendon reflexes 2+ bilaterally Motor Exam: strength 5/5 throughout and general weakness Psych thought process normal and cooperative Appearance: appropriate Assessment & Plan Assessment/Plan (1) Bradycardia, sinus: (2) Acute exacerbation of CHF (congestive heart failure): PLAN: Plan #Acute exacerbation of HFpEF * Has known EF of 55% from echo done in December 2023. * BNP was elevated at over 2000. Chest x-ray showed evidence of fluid overload. * On IV Lasix 40 mg daily. Patient states she feels much better. Titrate oxygen to maintain saturation above 90%. Breathing treatments bronchodilators. * #Hypoxia due to acute exacerbation of heart failure with preserved ejection fraction * As above. #Paroxysmal A-fib * On amiodarone and Eliquis. * Patient has been bradycardic with heart rate in the 40s and 50s. Will monitor closely and if it continues to persist and or worsen, will adjust dose of amiodarone. #Anemia: * Hemoglobin was 9 on admission is 8.1 now. * Her baseline hemoglobin is around 11.6. * Will monitor closely and if continues to drop further we will hold Eliquis. * #Hypertension: On lisinopril and hydrochlorothiazide. IV hydralazine as needed. Hold HCTZ as she is on lasix. #Pulmonary hypertension * Pulmonary systolic pressure was 50 mmHg from 2D echo. * This is chronic and likely due to underlying heart failure. * Will monitor. * #CKD stage IIIb: Creatinine at baseline. Will monitor. #History of peripheral vascular disease * States she had vascular intervention but does not know exactly what it was. * Follow-up with vascular surgeon outpatient basis. * #DVT prophylaxis: On Eliquis Charges/Coding Visit Charges Inpatient E&M: 12993 Subs Hosp L2
[2024-01-29 04:08] VITALS: BMI 25.6
[2024-01-29 04:30] VITALS: BP 107/43; PULSE 45; RESP 18; TEMP 35.8; O2SAT 94
[2024-01-29 05:34] VITALS: BMI 25.6
[2024-01-29 07:25] VITALS: O2SAT 95
[2024-01-29 08:53] LABS: Absolute Lymphocyte Count 1.18 X10^3/uL (0.83-4.51); Absolute Neutrophil Count 6.3 X10^3/uL (2.0-7.7); Basophil# 0.04 X10^3/uL; Basophil% 0.5 % (0-1); Eosinophil# 0.31 X10^3/uL; Eosinophils% 3.7 % (0-5); Hematocrit 27.8 % (37-47); Hemoglobin 8.7 g/dL (12.0-15.0); Lymphocyte # 1.18 X10^3/ul (0.83-4.51); Mean Corp Hgb Conc 31.3 g/dL (32-36); Mean Corpuscular Hgb 30.3 pg (27.0-32.0); Mean Corpuscular Volume 96.9 fL (81-99); Mean Platelet Vol. 8.8 fl (6.2-12.0); Monocyte% 7.1 % (0-10); NRBC Flagged by Analyzer 0 % (0-5); Neutrophil # 6.25 X10^3/uL (2.7-7.7); Neutrophil % 74.1 % (47-70); POSITIVE MORPHOLOGY YES; Platelet Count 204 K/mm3 (150-450); RBC Distribution Width CV 18.7 % (11.6-14.6); RBC Distribution Width SD 65.9 fl (35.1-43.9); Red Blood Count 2.87 M/mm3 (4.2-5.4); White Blood Count 8.4 K/mm3 (4.4-11.0)
[2024-01-29 08:57] LABS: Differential Indicated SCAN CRITERIA MET
[2024-01-29] MEDS: Amiodarone 200 MG Tablet 100 MG PO (08:57)
[2024-01-29] MEDS: Lisinopril 40 MG Tablet PO (08:57)
[2024-01-29] MEDS: Atorvastatin Calcium 40 MG Tablet PO (08:57)
[2024-01-29] MEDS: Docusate Sodium 100 MG Capsule PO ×2 (08:57→21:53)
[2024-01-29] MEDS: Ferrous Sulfate 325 MG Tablet PO (08:57)
[2024-01-29] MEDS: Furosemide 40 MG/4 ML Vial IV (08:58)
[2024-01-29] MEDS: Gabapentin 300 MG Capsule PO ×2 (09:02→21:53)
[2024-01-29 09:16] LABS: Anion Gap 6 (5-15); BUN 27 mg/dL (7-18); BUN/Creat Ratio 18.8 RATIO (10-20); Calcium,Total 8.7 mg/dL (8.5-10.1); Chloride 107 mmol/L (98-107); Creatinine, Serum 1.44 mg/dL (0.55-1.02); EST Glomerular Filtration Rate 37 mL/min (>60); Est Glom Filt Rate - Afr Amer 44 mL/min (>60); Estimated Creatinine Clearance 20.14 ml/min; Glucose 85 mg/dL (74-106); Potassium 3.5 mmol/L (3.5-5.1); Sodium Level 141 mmol/L (136-145)
[2024-01-29 10:03] LABS: Anisocytosis 2+; Differential Comment SCANNED; Platelet Estimate ADEQUATE (ADEQ); Polychromasia 1+
[2024-01-29 10:04] LABS: Acanthocytes RARE; Macrocytosis 1+; Tear Drop Cell RARE
[2024-01-29 11:00] VITALS: BP 134/92; PULSE 52; RESP 17; TEMP 36.8; O2SAT 98
[2024-01-29 12:00] VITALS: BP 134/92; PULSE 52; RESP 17; TEMP 36.8; O2SAT 98
--- NOTE | 2024-01-29 14:18 | PN_ITS ---
Objective Data Objective Data Vital Signs: Vital Signs Temp Pulse Resp BP Pulse Ox O2 Del Method O2 Flow Rate 96.4 F L 45 L 18 107/43 L 95 Room Air 2 01/29/24 04:30 01/29/24 04:30 01/29/24 04:30 01/29/24 04:30 01/29/24 07:25 01/29/24 09:09 01/29/24 07:25 Oxygen Flow Rate (L/min) 2 Oxygen Delivery Method Room Air Weight: 114 lb 6.719 oz Body Mass Index (BMI) 25.6 Intake & Output: Intake and Output for Last 24 Hours 01/27/24 01/28/24 01/29/24 23:59 23:59 23:59 Intake Total 60 / 180 660 / 1020 360 / 360 Output Total 1950 / 2200 600 / 600 Balance 60 / -520 -1290 / -1180 -240 / -240 Lab / Micro Data 01/29/24 08:40 01/29/24 08:40 Labs: Laboratory Results - last 24 hr 01/29/24 08:40: WBC 8.4, RBC 2.87 L, Hgb 8.7 L, Hct 27.8 L, MCV 96.9, MCH 30.3, MCHC 31.3 L, RDW Std Deviation 65.9 H, RDW Coeff of Rohit 18.7 H, Plt Count 204, MPV 8.8, Immature Gran % (Auto) 0.600, Neut % (Auto) 74.1 H, Lymph % (Auto) 14.0 L, [place] % (Auto) 7.1, Eos % (Auto) 3.7, Baso % (Auto) 0.5, Absolute Neuts (auto) 6.3, Absolute Lymphs (auto) 1.18, Nucleated RBC % 0, Differential Comment SCANNED, Platelet Estimate ADEQUATE, Polychromasia 1+, Anisocytosis 2+, Macrocytosis 1+, Tear Drop Cells RARE, Acanthocytes (Spur) RARE, Sodium 141, Potassium 3.5, Chloride 107, Carbon Dioxide 28.0, Anion Gap 6, BUN 27 H, C reatinine 1.44 H, Estim Creat Clear Calc 20.14, Est GFR (MDRD) Af Amer 44 L, Est GFR (MDRD) Non-Af 37 L, BUN/Creatinine Ratio 18.8, Glucose 85, Calcium 8.7 Micro: Microbiology 01/27/24 19:28 Mucosa - Nasopharyngeal Respiratory Panel (PCR) - Final 01/27/24 19:35 Nasal Secretion SARS-CoV-2 Antigen (Rapid) - Final
--- NOTE | 2024-01-29 14:25 | CASEMGMT ---
Discharge Planning A list of?HH providers including quality and resource use data and consistent with the patient's preferred geographic region, medical needs, and insurance network was created in [employer] Guide.? This list was provided to the RN JOHANNY. Bernadine Hall, Discharge Planning Asst.
--- NOTE | 2024-01-29 14:40 | CHAPLAIN ---
Type of Pastoral Visit _x__ Initial Visit ___ Follow-up Visit ___ On-call Visit ___ General Patient Visit ___ Spiritual Assessment ___ Family Conference ___ Bereavement ___ Rapid Response ___ Code Blue ___ Other (describe below) Pastoral Care Referral From _x__ Patient _x__ Family ___ Nurse ___ Physician ___ Applied Anthropologist ___ Training And Documentation Specialist ___ Other (describe below) Sacrament/Intervention _x__ Active listening ___ Anointing ___ Yazdanism ___ Bereavement ___ Communion ___ Karlene exploration ___ _x__ Life review _x__ Prayer ___ Reconciliation ___ Sacrament of Sick _x__ Supportive presence ___ Wedding ___ Other (describe below) Pastoral Comments patient is sitting up in the chair and very welcoming; pt begins to talk about feeling better and it was nice to take a walk earlier; pt is very talkative and gives much life review and perspective; pt was earlier this year and she talks extensively about her , his illness, how they managed together in [place], and how he ; pt has moved to [place] to be near family; pt is very affirming of the care that she is receiving at the hospital; pt hopes to be home before Elisha; pt uses her karlene in God to help her through life; pt welcomes presence and prayer; pt expresses gratitude for spiritual care support
--- NOTE | 2024-01-29 15:02 | CASEMGMT ---
Addendum entered by Bernadine Hall 01/29/24 15:20: [facility] has accepted. Bernadine Hall DC Planning Asst. Original Note: Discharge Planning HH referral sent to [facility]. Bernadine Hall DC Planning Asst.
--- NOTE | 2024-01-29 15:26 | CASEMGMT ---
AMNA ORLANDO reviewed therapy notes, patient ambulated 70 feet contact guard. RN CM in to discuss discharge planning with patient. Patient agreeable to [facility], list provided, patient prefers [facility]. RN CM discussed possible need for home oxygen, patient prefers [facility]. Patient denied further needs at this time and asked this RN CM to updated daughter. RN JOHANNY called daughter Ambreen and updated to plans for at discharge with anticipated discharge tomorrow. Ambreen voiced appreciation and is agreeable to plan. Daughter had no further questions or concerns. Discharge planning director updated regarding referral request for [facility]. AMNA ORLANDO updated hospitalist. Green sheet placed on chart.
--- NOTE | 2024-01-29 16:05 | PN_ITS ---
Subjective Subjective Patient seen and examined. She had no active complaints and felt much better. She was on room air. Review of systems otherwise negative. Objective Data Objective Data Vital Signs: Vital Signs Temp Pulse Resp BP Pulse Ox O2 Del Method O2 Flow Rate 96.4 F L 45 L 18 107/43 L 95 Room Air 2 01/29/24 04:30 01/29/24 04:30 01/29/24 04:30 01/29/24 04:30 01/29/24 07:25 01/29/24 09:09 01/29/24 07:25 Oxygen Flow Rate (L/min) 2 Oxygen Delivery Method Room Air Weight: 114 lb 6.719 oz Body Mass Index (BMI) 25.6 Intake & Output: Intake and Output for Last 24 Hours 01/27/24 01/28/24 01/29/24 23:59 23:59 23:59 Intake Total 60 / 180 660 / 1020 360 / 360 Output Total 1950 / 2200 600 / 600 Balance 60 / -520 -1290 / -1180 -240 / -240 Lab / Micro Data 01/29/24 08:40 01/29/24 08:40 Labs: Laboratory Results - last 24 hr 01/29/24 08:40: WBC 8.4, RBC 2.87 L, Hgb 8.7 L, Hct 27.8 L, MCV 96.9, MCH 30.3, MCHC 31.3 L, RDW Std Deviation 65.9 H, RDW Coeff of Rohit 18.7 H, Plt Count 204, MPV 8.8, Immature Gran % (Auto) 0.600, Neut % (Auto) 74.1 H, Lymph % (Auto) 14.0 L, [place] % (Auto) 7.1, Eos % (Auto) 3.7, Baso % (Auto) 0.5, Absolute Neuts (auto) 6.3, Absolute Lymphs (auto) 1.18, Nucleated RBC % 0, Differential Comment SCANNED, Platelet Estimate ADEQUATE, Polychromasia 1+, Anisocytosis 2+, Macrocytosis 1+, Tear Drop Cells RARE, Acanthocytes (Spur) RARE, Sodium 141, Potassium 3.5, Chloride 107, Carbon Dioxide 28.0, Anion Gap 6, BUN 27 H, C reatinine 1.44 H, Estim Creat Clear Calc 20.14, Est GFR (MDRD) Af Amer 44 L, Est GFR (MDRD) Non-Af 37 L, BUN/Creatinine Ratio 18.8, Glucose 85, Calcium 8.7 Micro: Microbiology 01/27/24 19:28 Mucosa - Nasopharyngeal Respiratory Panel (PCR) - Final 01/27/24 19:35 Nasal Secretion SARS-CoV-2 Antigen (Rapid) - Final Physical Exam Const alert, oriented x3 and no apparent distress Constitutional Narrative: frail General Appearance: cooperative HEENT normocephalic, head/scalp atraumatic, moist oral mucous membranes and oropharynx normal Eyes PERRL and EOMs intact bilaterally Neck no lymphadenopathy and supple Lymph Lymphatic: no lymphadenopathy noted, no lymphedema noted and lymphedema Resp Resp Narrative: mildly diminished breath sounds bibasally, no wheezes or crackles. On room air Cardio regular rhythm, S1 normal heart sound, S2 normal heart sound and no murmurs Rate: bradycardia GI normal to inspection, nondistended, normoactive bowel sounds, soft to palpation, non-tender and non-distended Extremity normal capillary refill, no clubbing, cyanosis or edema and no calf tenderness General Extremity: no tenderness to palpation of joints or extremities Skin General Skin Exam: no breakdown Neuro CN's II-XII intact bilaterally, no focal motor deficits, no sensory deficits noted and deep tendon reflexes 2+ bilaterally Motor Exam: strength 5/5 throughout and general weakness Psych thought process normal and cooperative Appearance: appropriate Assessment & Plan Assessment/Plan (1) Bradycardia, sinus: (2) Acute exacerbation of CHF (congestive heart failure): PLAN: Plan #Acute exacerbation of HFpEF * Has known EF of 55% from echo done in December 2023. * BNP was elevated at over 2000. Chest x-ray showed evidence of fluid overload. * On IV Lasix 40 mg daily. Patient states she feels much better. Titrate oxygen to maintain saturation above 90%. Breathing treatments bronchodilators. * DC IV Lasix and switch to p.o. Lasix today. Patient's blood pressure is running low. * #Hypoxia due to acute exacerbation of heart failure with preserved ejection fraction * As above. #Paroxysmal A-fib * On amiodarone and Eliquis. * Patient remains bradycardic with heart rates in the 40s but she is not symptomatic. Will adjust dose of amiodarone. * Patient has been bradycardic with heart rate in the 40s and 50s. Will monitor closely and if it continues to persist and or worsen, will adjust dose of amiodarone. #Anemia: * Hg is up to 8.7 today from 8.1 yesterday. * Her baseline hemoglobin is around 11.6. * Will monitor closely and if continues to drop further we will hold Eliquis. * #Hypertension: On lisinopril and hydrochlorothiazide. IV hydralazine as needed. HCTZ on hold #Pulmonary hypertension * Pulmonary systolic pressure was 50 mmHg from 2D echo. * This is chronic and likely due to underlying heart failure. * Will monitor. * #CKD stage IIIb: Creatinine at baseline. Will monitor. #History of peripheral vascular disease * States she had vascular intervention but does not know exactly what it was. * Follow-up with vascular surgeon outpatient basis. * #DVT prophylaxis: On Eliquis Disposition: For likely discharge tomorrow. Charges/Coding Visit Charges Inpatient E&M: 16242 Subs Hosp L2
[2024-01-29 17:00] VITALS: BP 104/50; PULSE 50; RESP 15; TEMP 36.6; O2SAT 99
[2024-01-29 17:55] VITALS: BMI 25.6
[2024-01-29 22:00] VITALS: BP 89/67; PULSE 51; RESP 18; TEMP 36.7; O2SAT 94
[2024-01-30] VITALS (7 sets, daily range): BP systolic 100–120; BP diastolic 39–56; PULSE 49–55; RESP 16–18; TEMP 36.2–37.1; O2SAT 90–97; BMI 24.4
[2024-01-30 07:35] LABS: Absolute Lymphocyte Count 0.94 X10^3/uL (0.83-4.51); Absolute Neutrophil Count 5.8 X10^3/uL (2.0-7.7); Basophil# 0.04 X10^3/uL; Basophil% 0.5 % (0-1); Eosinophil# 0.24 X10^3/uL; Eosinophils% 3.1 % (0-5); Lymphocyte # 0.94 X10^3/ul (0.83-4.51); Lymphocyte % 12.3 % (19-41); Mean Corp Hgb Conc 32.1 g/dL (32-36); Mean Corpuscular Hgb 30.3 pg (27.0-32.0); Mean Corpuscular Volume 94.3 fL (81-99); Monocyte# 0.61 X10^3/uL; NRBC Flagged by Analyzer 0 % (0-5); Neutrophil # 5.79 X10^3/uL (2.7-7.7); Neutrophil % 75.6 % (47-70); Platelet Count 200 K/mm3 (150-450); RBC Distribution Width CV 18.6 % (11.6-14.6); RBC Distribution Width SD 64.1 fl (35.1-43.9); Red Blood Count 2.97 M/mm3 (4.2-5.4); White Blood Count 7.7 K/mm3 (4.4-11.0)
[2024-01-30 08:00] LABS: Anion Gap 8 (5-15); BUN 30 mg/dL (7-18); BUN/Creat Ratio 21.7 RATIO (10-20); Calcium,Total 8.4 mg/dL (8.5-10.1); Chloride 103 mmol/L (98-107); Creatinine, Serum 1.38 mg/dL (0.55-1.02); EST Glomerular Filtration Rate 39 mL/min (>60); Est Glom Filt Rate - Afr Amer 47 mL/min (>60); Estimated Creatinine Clearance 21.02 ml/min; Glucose 87 mg/dL (74-106); Sodium Level 138 mmol/L (136-145)
[2024-01-30] MEDS: Ferrous Sulfate 325 MG Tablet PO (09:33)
[2024-01-30] MEDS: Docusate Sodium 100 MG Capsule PO (09:33)
[2024-01-30] MEDS: Atorvastatin Calcium 40 MG Tablet PO (09:34)
[2024-01-30] MEDS: Lisinopril 40 MG Tablet PO (09:34)
[2024-01-30] MEDS: Furosemide 20 MG Tablet PO (09:34)
[2024-01-30] MEDS: Gabapentin 300 MG Capsule PO (09:40)
--- NOTE | 2024-01-30 10:25 | DCINST_ITS ---
Discharge Instructions Diet Discharge Diet: Low fat / Low cholesterol DC O2, CPAP, BIPAP needs Home O2 Discharge instructions: No Dressing / Incision Discharge Activity: Return to Normal Activity Weight Bearing Status: Weight bearing as tolerated Dressing / Incision Call your doctor if you observe: Fever of 101 or Higher, Shortness of breath, Dizziness, Swelling in the ankles and Chest pain Follow Up Care Test Results: Test results from this visit will be discussed in further detail at your follow- up appointment, if applicable. Discharge Plan Admission Admit Date/Time: 01/27/24 16:56 Primary Reason for Your Visit: acute heart failure with preserved EF Attending Provider: Clotilde Tamayo Primary Care Provider: Keke Suarez Consulting Providers: Perla Kingston Instructions Patient Instructions: Heart Failure Discharge Orders/Prescriptions Prescriptions: New furosemide 40 mg tablet 40 mg PO DAILY Qty: 30 2RF potassium chloride [Klor-Con M20] 20 mEq tablet,ER particles/crystals 20 meq PO DAILY Qty: 30 2RF Continued atorvastatin 40 mg tablet 40 mg PO DAILY gabapentin 300 mg capsule 300 mg PO BID lisinopril 40 mg tablet 40 mg PO DAILY ferrous sulfate 325 mg (65 mg iron) tablet 325 mg PO DAILY mecobalamin (vitamin B12) 1,000 mcg tablet,chewable 1,000 mcg PO QMWF cholecalciferol (vitamin D3) 125 mcg (5,000 unit) capsule 125 mcg PO QODAY hydroxychloroquine 200 mg tablet 200 mg PO DAILY Eliquis 2.5 mg tablet 2.5 mg PO BID Qty: 180 3RF Discontinued amiodarone 200 mg tablet 100 mg PO DAILY propranolol 40 mg tablet 40 mg PO DAILY hydrochlorothiazide 25 mg tablet 25 mg PO Q12H Referrals / Follow Up: Keke Suarez, CASTING ROOM HELPER-C [Primary Care Provider] - Within 1 Week Disposition Disposition (needs filled in before D/C Order can be placed): Home, Self Care
--- NOTE | 2024-01-30 10:29 | DS.PCM_ITS ---
Providers Date of Admission: 01/27/24 Date of Discharge: 01/30/24 Primary Care Physician: MARLEE Bolivar Reason For Visit: FLUID OVERLOAD Diagnosis Discharge Diagnosis (1) Bradycardia, sinus: Status: Acute Code(s): R00.1 - Bradycardia, unspecified (2) Acute exacerbation of CHF (congestive heart failure): Status: Chronic Code(s): I50.9 - Heart failure, unspecified Plan #Acute exacerbation of HFpEF * Has known EF of 55% from echo done in December 2023. * BNP was elevated at over 2000. Chest x-ray showed evidence of fluid overload. * On IV Lasix 40 mg daily. Patient states she feels much better. Titrate oxygen to maintain saturation above 90%. Breathing treatments bronchodilators. * DC IV Lasix and switch to p.o. Lasix today. Patient's blood pressure is running low. * #Hypoxia due to acute exacerbation of heart failure with preserved ejection fraction * As above. #Paroxysmal A-fib * On amiodarone and Eliquis. * Patient remains bradycardic with heart rates in the 40s but she is not symptomatic. Will adjust dose of amiodarone. * Patient has been bradycardic with heart rate in the 40s and 50s. Will monitor closely and if it continues to persist and or worsen, will adjust dose of amiodarone. #Anemia: * Hg is up to 8.7 today from 8.1 yesterday. * Her baseline hemoglobin is around 11.6. * Will monitor closely and if continues to drop further we will hold Eliquis. * #Hypertension: On lisinopril and hydrochlorothiazide. IV hydralazine as needed. HCTZ on hold #Pulmonary hypertension * Pulmonary systolic pressure was 50 mmHg from 2D echo. * This is chronic and likely due to underlying heart failure. * Will monitor. * #CKD stage IIIb: Creatinine at baseline. Will monitor. #History of peripheral vascular disease * States she had vascular intervention but does not know exactly what it was. * Follow-up with vascular surgeon outpatient basis. * #DVT prophylaxis: On Eliquis Disposition: For likely discharge tomorrow. Medications at Discharge Home Medications atorvastatin 40 mg tablet 40 mg PO DAILY 09/07/23 cholecalciferol (vitamin D3) 125 mcg (5,000 unit) capsule 125 mcg PO QODAY 09/07/23 ferrous sulfate 325 mg (65 mg iron) tablet 325 mg PO DAILY 09/07/23 gabapentin 300 mg capsule 300 mg PO BID 09/07/23 lisinopril 40 mg tablet 40 mg PO DAILY 09/07/23 mecobalamin (vitamin B12) 1,000 mcg chewable tablet 1,000 mcg PO QMWF 09/07/23 apixaban 2.5 mg tablet (Eliquis) 2.5 mg PO BID Pt wants a 90 day supply instead of 30 d/t expense #180 tabs 12/16/23 hydroxychloroquine 200 mg tablet 200 mg PO DAILY Immunosupressive 01/27/24 furosemide 40 mg tablet 40 mg PO DAILY #30 tabs 01/30/24 potassium chloride 20 mEq tablet,extended release(part/cryst) (Klor-Con M) 20 meq PO DAILY #30 tabs 01/30/24 Hospital Course Operations None Procedures None Summary of Care Provided Minutes Spent on Discharge: 45 Hospital Course: Patient is an 88-year-old female with past medical history as outlined was admitted through the ED on 01/27/2024 with a complaint of shortness of breath that had worsened over a week prior to admission. She had been seen in her fourth grade teacher office before admission and had a chest x-ray which was concerning for fluid overload. His symptoms worsened so she came into the ED the day after. She says she could not even walk 5 to 7 feet without feeling short of breath. She says she had a Reclast injection in November 2023 and has subsequently started having swelling in her extremities. Review of systems otherwise negative. BNP was elevated. She was on the diet managed for acute on chronic exacerbation of heart failure with preserved ejection fraction. She had known EF of 55%. She also had pulmonary systolic pressure of 60 mmHg. She was diuresed with IV Lasix. She was also on amiodarone and Eliquis for A-fib. Her shortness of breath improved with diuresis and she felt much better. Hospital course was however complicated by bradycardia with heart rate going down to the 40s. I did discuss with her fourth grade teacher and her amiodarone was discontinued. Her propranolol she was on for benign tremors was also discontinued. Patient felt much better and her oxygen was weaned down. She was discharged home on 01/30/2024. She is to follow-up with her primary care doctor within 1 to 2 weeks. She was discharged on p.o. Lasix 40 mg daily as well as p.o. potassium supplementation. She is follow-up with her fourth grade teacher within 1 to 2 weeks for decision to be made about whether to resume her amiodarone or otherwise. Patient seen and examined prior to discharge. She felt much better and had no complaints. Review of systems otherwise negative. Labs and vitals reviewed. Home medication reviewed and reconciled. Physical Exam Const alert, oriented x3 and no apparent distress Constitutional Narrative: frail General Appearance: cooperative, comfortable and well developed HEENT normocephalic, head/scalp atraumatic, hearing grossly normal bilaterally, moist oral mucous membranes and oropharynx normal Mouth: oral and palatal mucosa normal Eyes PERRL, EOMs intact bilaterally and conjunctivae normal Neck no lymphadenopathy and supple Lymph Lymphatic: no lymphadenopathy noted, no lymphedema noted and lymphedema Resp Resp Narrative: mildly diminished breath sounds bibasally, no wheezes or crackles. On room air Cardio regular rhythm, S1 normal heart sound, S2 normal heart sound and no murmurs Rate: bradycardia GI normal to inspection, nondistended, normoactive bowel sounds, soft to palpation, non-tender and non-distended Extremity normal to inspection, full ROM, normal capillary refill, no clubbing, cyanosis or edema and no calf tenderness General Extremity: no tenderness to palpation of joints or extremities Skin no rashes or lesions noted General Skin Exam: no breakdown Neuro oriented x3, CN's II-XII intact bilaterally, moves all extremities, no focal motor deficits, no sensory deficits noted and deep tendon reflexes 2+ bilaterally Sensorium / Orientation: awake Motor Exam: strength 5/5 throughout and general weakness Psych thought process normal and cooperative Appearance: appropriate Weight / BMI Weight Weight: 108 lb 14.534 oz Body Mass Index (BMI) 24.4 ABG / Lab / Microbiology Data 01/30/24 06:15 01/30/24 06:15 Laboratory: Laboratory Results - last 24 hr 01/30/24 06:15: WBC 7.7, RBC 2.97 L, Hgb 9.0 L, Hct 28.0 L, MCV 94.3, MCH 30.3, MCHC 32.1, RDW Std Deviation 64.1 H, RDW Coeff of Rohit 18.6 H, Plt Count 200, MPV 9.0, Immature Gran % (Auto) 0.500, Neut % (Auto) 75.6 H, Lymph % (Auto) 12.3 L, Graves % (Auto) 8.0, Eos % (Auto) 3.1, Baso % (Auto) 0.5, Absolute Neuts (auto) 5.8, Absolute Lymphs (auto) 0.94, Nucleated RBC % 0, Sodium 138, Potassium 3.0 L , Chloride 103, Carbon Dioxide 27.0, Anion Gap 8, BUN 30 H, Creatinine 1.38 H, Estim Creat Clear Calc 21.02, Est GFR (MDRD) Af Amer 47 L, Est GFR (MDRD) Non-Af 39 L, BUN/Creatinine Ratio 21.7 H, Glucose 87, Calcium 8.4 L Microbiology: Microbiology 01/27/24 19:28 Mucosa - Nasopharyngeal Respiratory Panel (PCR) - Final 01/27/24 19:35 Nasal Secretion SARS-CoV-2 Antigen (Rapid) - Final D/C Instructions Discharge Diet: Low fat / Low cholesterol Discharge Activity: Return to Normal Activity Weight Bearing Status: Weight bearing as tolerated Call your doctor if you observe: Fever of 101 or Higher, Shortness of breath, Dizziness, Swelling in the ankles and Chest pain DC O2, CPAP, BIPAP Needs RN Home O2 Qualification: Home O2 Qualification: Is the patient on home oxygen No 01/30/24 11:35 Home O2 Qualification: AT REST 1- Pulse Ox at rest 97 01/30/24 11:35 Home O2 Qualification: WITH AMBULATION 1- Pulse Ox with ambulation 90 01/30/24 11:35 1- Oxygen Flow Rate with 0 01/30/24 11:35 ambulation Home O2 Discharge instructions: No DC home with Oxygen: No Meaningful Use Info Meaningful Use Meaningful Use Diagnoses (Choose all that apply): CHF CHF FREDERICK/ARB ordered at discharge?: Yes Documented LVEF (%): 55 Ischemic Stroke Statin Dosing Therapy Reference: STATIN DOSE THERAPY REFERENCE: * Patients > 75 years receive moderate or high dose statin therapy. * Patients 75 years or YOUNGER should receive HIGH intensity statin dose unless contraindicated. You will be required to document reason for non-treatment if statin daily dose does not meet guidelines. HIGH DOSE STATIN THERAPY DAILY Atorvastatin > than or = to 40 mg Rosuvastatin > than or = to 20 mg Amlodipine + Atorvastatin > than or = to 2.5/40 mg Ezetimibe + Simvastatin 10/80 mg Simvastatin 80mg Discharge Plan Admission Admit Date/Time: 01/27/24 16:56 Primary Reason for Your Visit: acute heart failure with preserved EF Attending Provider: Clotilde Tamayo Primary Care Provider: Keke Suarez Consulting Providers: Perla Kingston Instructions Patient Instructions: Heart Failure Discharge Orders/Prescriptions Prescriptions: New furosemide 40 mg tablet 40 mg PO DAILY Qty: 30 2RF potassium chloride [Klor-Con M20] 20 mEq tablet,ER particles/crystals 20 meq PO DAILY Qty: 30 2RF Continued atorvastatin 40 mg tablet 40 mg PO DAILY gabapentin 300 mg capsule 300 mg PO BID lisinopril 40 mg tablet 40 mg PO DAILY ferrous sulfate 325 mg (65 mg iron) tablet 325 mg PO DAILY mecobalamin (vitamin B12) 1,000 mcg tablet,chewable 1,000 mcg PO QMWF cholecalciferol (vitamin D3) 125 mcg (5,000 unit) capsule 125 mcg PO QODAY hydroxychloroquine 200 mg tablet 200 mg PO DAILY Eliquis 2.5 mg tablet 2.5 mg PO BID Qty: 180 3RF Discontinued amiodarone 200 mg tablet 100 mg PO DAILY propranolol 40 mg tablet 40 mg PO DAILY hydrochlorothiazide 25 mg tablet 25 mg PO Q12H Referrals / Follow Up: Keke Suarez, GEOSPATIAL SYSTEMS INTEGRATOR-C [Primary Care Provider] - Within 1 Week Disposition Disposition (needs filled in before D/C Order can be placed): Home, Self Care Charges/Coding Visit Charges Inpatient E&M: 04411 Disch Hosp >30min
== END 2024-01-30 14:30 | disposition home or self-care (01) | DRG 291 ==
LOC: ED 16:33 → PCU 17:01
PROVIDERS: Admitting Provider Internal Medicine; Emergency Provider Emergency Medicine; PCP Nurse Practitioner Family; Visit Provider Student in an Organized Health Care Education/Training Program
DX: I13.0 Hypertensive heart and chronic kidney disease with heart failure and stage 1 through stage 4 chronic kidney disease, or unspecified chronic kidney disease (principal); I50.33 Acute on chronic diastolic (congestive) heart failure; D63.1 Anemia in chronic kidney disease; I27.22 Pulmonary hypertension due to left heart disease; Z79.01 Long term (current) use of anticoagulants; N18.32 Chronic kidney disease, stage 3b; I35.9 Nonrheumatic aortic valve disorder, unspecified; M35.00 Sjogren syndrome, unspecified; I48.0 Paroxysmal atrial fibrillation; M06.9 Rheumatoid arthritis, unspecified; E78.5 Hyperlipidemia, unspecified; I44.0 Atrioventricular block, first degree; M79.7 Fibromyalgia; I45.10 Unspecified right bundle-branch block; Z86.718 Personal history of other venous thrombosis and embolism; R53.81 Other malaise; R09.02 Hypoxemia; Z79.899 Other long term (current) drug therapy; M81.0 Age-related osteoporosis without current pathological fracture; X58.XXXA Exposure to other specified factors, initial encounter
CPT/HCPCS: 36415; 71046; 74230; 80048; 80053; 80061; 82728; 83540; 83550; 83880; 84443; 84484; 85025; 87633; 87811; 92526; 92610; 92611; 93005; 97116; 97162; 97166; 97530; 99285; A4216; J1940

== ENCOUNTER → 2024-02-08 | Outpatient (CLI) | payer MEDICARE, SELFPAY | END | disposition home or self-care (01) | PROVIDERS: PCP Nurse Practitioner Family; Referring Provider Physician Assistant Medical; Visit Provider Physician Assistant Medical | DX: R06.09 Other forms of dyspnea (principal) | CPT/HCPCS: 93225; 93226 ==

== ENCOUNTER → 2024-02-20 | Outpatient (CLI) | payer MEDICARE, SELFPAY ==
--- NOTE | 2024-02-20 08:22 | MRI_ITS ---
We are attempting to reach an attending provider to discuss findings. An addendum with communication details will be sent when the communication is complete. STUDY: MRI BRAIN WITHOUT CONTRAST REASON FOR EXAM: Female, 88 years old. NEW HEAD TREMOR, headaches, unsteady/dizzy TECHNIQUE: Standardized multiplanar fat and water weighted pulse sequences were obtained. COMPARISON: None. FINDINGS: 2 small acute infarcts are present in the central and posterior aspect of the left cerebellar lobe. A single small subcortical infarct is also seen in the posterior medial and inferior aspect of the left occipital lobe. There is mild cerebral atrophy with widening of the extra-axial spaces and ventricular dilatation. There are multiple white matter hyperintensities, distributed throughout the deep white matter tracts of the cerebral hemispheres, consistent with moderate chronic white matter ischemic changes. Normal T2* images of the brain without demonstrated susceptibility artifact. There is no demonstrated hemosiderin stain. Normal bilateral basal ganglia. Normal thalami. There is no extra-axial fluid accumulation. Normal flow voids within the major intracranial circulation suggesting patency by spin echo criteria. Normal sella turcica, pituitary gland, infundibular stalk, optic chiasm and hypothalamus. Normal tectal plate and pineal gland. Normal midbrain, karime and medulla. Normal cerebellum. Normal basal cisterns. Normal bilateral temporal bones. Normal bilateral internal auditory canals. No demonstrated orbital abnormality, within the constraints of a routine brain study. Normal visualized paranasal sinuses. Normal calvarium and skull base. Normal visualized soft tissue structures. Normal visualized upper cervical spine. MRI/Brain without Contrast IMPRESSION: Small left posterior circulation acute infarcts. 1. 2 small acute infarcts are present in the central and posterior aspect of the left cerebellar lobe. A single small subcortical infarct is also seen in the posterior medial and inferior aspect of the left occipital lobe. Electronically Signed: Rickey Crow MD at 14:24 EST ,
== END | disposition home or self-care (01) ==
PROVIDERS: PCP Nurse Practitioner Family; Referring Provider Nurse Practitioner Family; Visit Provider Nurse Practitioner Family
DX: G25.0 Essential tremor (principal)

== ENCOUNTER 2024-02-22 15:57 | Inpatient (IN) | payer MEDICARE, SELFPAY ==
[2024-02-22] VITALS (7 sets, daily range): BP systolic 128–194; BP diastolic 38–89; PULSE 57–66; RESP 15–21; TEMP 36.3–36.7; O2SAT 97–100; BMI 21.7; BMI 20.2
--- NOTE | 2024-02-22 16:20 | CT_ITS ---
We are attempting to reach an attending provider to discuss findings. An addendum with communication details will be sent when the communication is complete. STUDY: CTA HEAD AND NECK WITH CONTRAST REASON FOR EXAM: Female, 88 years old. Neuro deficit, acute, stroke suspected RADIATION DOSAGE (If Supplied By Facility): CTDIvol = ( 18.77 ) mGy, DLP = ( 436.21 ) mGycm TECHNIQUE: CT angiography was performed with a multi-detector CT scanner. Data acquisition was obtained from the skull base through the vertex following intravenous administration of IV 100mL [id number]-370. MIP images were reconstructed from the axial data set. Post-processing of the angiographic images was performed, with multiplanar reformation and 3D reconstruction. Individualized dose optimization techniques were used for this CT. COMPARISON: No relevant priors. FINDINGS: Normal bilateral petrous carotid arteries. Mild calcific plaquing of the right cavernous carotid artery with a normal supraclinoid bifurcation. Mild calcific plaquing of the left cavernous carotid artery with a normal supraclinoid bifurcation. Normal right A1 segments of the anterior cerebral artery. Normal left A1 segments of the anterior cerebral artery. Normal intact anterior communicating artery (ACOM). Normal bilateral A2 segments of the anterior cerebral arteries. Normal right M1 and M2 segments of the middle cerebral arteries, with a normal M1 bifurcation. Normal left M1 and M2 segments of the middle cerebral arteries, with a normal M1 bifurcation. Normal right posterior communicating artery (PCOM). [Left posterior communicating artery not visualized consistent with normal variant Mild calcific plaquing of the left and right vertebral arteries. Normal basilar artery with a normal basilar bifurcation. The visualized bilateral superior cerebellar (SCA) arteries are normal. Normal bilateral P1, P2 and visualized P3 segments of the posterior cerebral arteries. There is no demonstrated aneurysm of the [place]. AORTIC ARCH: Normal visualized aortic arch. Normal origins of the brachiocephalic, left common carotid, and left subclavian arteries. RIGHT CAROTID ARTERIES: Moderate calcific plaquing of the distal right common carotid artery (CCA). and right common carotid bulb. Mild calcific plaquing of the origin of the right internal carotid (ICA) artery without a hemodynamically significant stenosis. Normal visualized cervical portion of the right internal carotid artery. Normal origin of the right external carotid artery (ECA). LEFT CAROTID ARTERIES: Moderate calcific plaquing of the left common carotid artery (CCA). and left common carotid bulb. Mild calcific plaquing of the origin of the left internal carotid (ICA) artery without a hemodynamically significant stenosis. Normal visualized cervical portion of the left internal carotid artery. Normal origin of the left external carotid artery (ECA). VERTEBRAL ARTERIES: Mild calcific plaquing of the distal bilateral vertebral arteries. CT/STROKE CTA Head AND Neck W/Con IMPRESSION: Atherosclerotic disease without evidence for hemodynamically significant stenosis or major vessel occlusion Electronically Signed: Cj Rodney MD at 17:47 EST ,
--- NOTE | 2024-02-22 16:20 | CT_ITS ---
We are attempting to reach an attending provider to discuss findings. An addendum with communication details will be sent when the communication is complete. INDICATION: Neuro deficit, acute, stroke suspected EXAMINATION: CT BRAIN - CT Head Stroke Protocol W/O Contrast Injection TECHNIQUE: Multiple axial images were obtained of the head without intravenous contrast. The protocol utilizes one or more of the following dose reduction techniques: automated exposure control, adjustment of mA and/or kV according to patient size,and/or use of iterative reconstruction technique. IV Contrast dosage and agent: None. RADIATION DOSAGE (If Supplied By Facility): CTDIvol = ( ) mGy, DLP = ( 1147.96 ) mGycm COMPARISON: MRI February 20, 2024 FINDINGS: BRAIN PARENCHYMA: Mild atrophy and moderate periventricular white matter ischemic changes. Mild hypoattenuation in left occipital lobe consistent with evolving infarct. Multiple foci of low signal attenuation in the left cerebellar hemisphere consistent with known acute infarct. Possible old infarct in the left posterior thalamus versus perivascular space CSF SPACES: . No hydrocephalus. Basal cisterns are patent. CALVARIUM, SKULL BASE, PARANASAL SINUSES AND MASTOID AIR CELLS: Clear. No discrete lytic or blastic abnormalities. ORBITS: Postsurgical changes of the orbits. Calcific plaquing of the cavernous carotids and left vertebral artery CT/STROKE Brain/Head without Cont IMPRESSION: Atrophy and moderate periventricular white matter ischemic changes. 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 No evidence for hemorrhagic transformation or definitive evidence for new infarct. MRI would be useful for more definitive evaluation in this regard if indicated Electronically Signed: Cj Rodney MD at 17:35 EST ,
--- NOTE | 2024-02-22 16:20 | EKG12_ITS ---
Test Reason : NEURO S/SX Blood Pressure : */* mmHG Vent. Rate : 56 BPM Atrial Rate : 56 BPM P-R Int : 256 ms QRS Dur : 136 ms QT Int : 490 ms P-R-T Axes : 72 -84 -16 degrees QTcB Int : 472 ms Sinus bradycardia with 1st degree A-V block Left axis deviation Right bundle branch block T wave abnormality, consider lateral ischemia Abnormal ECG Confirmed by OMKAR IGNACIO MD ([id number]), non linear editor MAYRA FORREST ([id number]) on 02/23/2024 9:27:10 AM Referred By: Confirmed By: OMKAR IGNACIO MD
--- NOTE | 2024-02-22 16:21 | EDS_ITS ---
HPI History of Present Illness Chief Complaint: Neuro S/Sx Narrative Narrative: 88-year-old female presents with her granddaughter because of abnormal MRI that was taken 2 days ago. They relate history that back in November she received Reclast, then started having generalized weakness. She states that she is having muscle weakness of both arms. She also developed a tremor and head bobbing since then. She was seen in the emergency department 3 weeks ago for congestive heart failure. She states she followed up with her primary care provider. They performed an MRI of the brain on Thursday, 2 days ago, and received a phone call today, at least 2 days later that she should get to the emergency department immediately. Of note, she states she may have had problems raising her right leg on Thursday, 3 days ago. She denies any focal deficit currently and states that she feels generally weak and has muscle weakness of both arms and sometimes both legs. No fevers or chills, no other symptoms. [facility] Medical History Bradycardia, sinus Hyperlipidemia Aortic valve disease Cardiac arrhythmia Fibromyalgia CKD (chronic kidney disease) stage 3, GFR 30-59 ml/min Rheumatoid arthritis Osteoporosis Afib Essential (primary) hypertension Shoulder pain with history of repair of rotator cuff Sjogren syndrome Home Medications ?Medication ?Instructions ?Recorded ?Last Taken ?Type atorvastatin 40 mg tablet 40 mg PO DAILY 09/07/23 02/21/24 History cholecalciferol (vitamin D3) 125 125 mcg PO QODAY 09/07/23 02/22/24 History mcg (5,000 unit) capsule ferrous sulfate 325 mg (65 mg 325 mg PO DAILY 09/07/23 02/21/24 History iron) tablet gabapentin 300 mg capsule 300 mg PO BID 09/07/23 02/22/24 History lisinopril 40 mg tablet 40 mg PO DAILY 09/07/23 02/22/24 History mecobalamin (vitamin B12) 1,000 1,000 mcg PO QMWF 09/07/23 02/22/24 History mcg chewable tablet hydroxychloroquine 200 mg tablet 200 mg PO DAILY Immunosupressive 01/27/24 Unknown History furosemide 40 mg tablet 40 mg PO DAILY #30 tabs 01/30/24 02/22/24 Rx potassium chloride 20 mEq 20 meq PO DAILY #30 tabs 01/30/24 02/22/24 Rx tablet,extended release(part/cryst) (Klor-Con M) rivaroxaban 20 mg tablet (Xarelto) 20 mg PO QPM 02/15/24 02/22/24 History propranolol 40 mg tablet 40 mg PO BID 02/22/24 Unknown History Allergy/AdvReac Type Severity Reaction Status Date / Time ciprofloxacin (From Cipro) Allergy Intermediate NEEDS Verified 02/19/24 15:31 FOLLOW-UP duloxetine Allergy Intermediate NEEDS Verified 02/19/24 15:31 FOLLOW-UP ibuprofen Allergy Intermediate NEEDS Verified 02/19/24 15:31 FOLLOW-UP meloxicam Allergy Intermediate NEEDS Verified 02/19/24 15:31 FOLLOW-UP Penicillins Allergy Intermediate NEEDS Verified 02/19/24 15:31 FOLLOW-UP sulfamethoxazole (From Allergy Intermediate NEEDS Verified 02/19/24 15:31 Sept) FOLLOW-UP trimethoprim (From Octra) Allergy Intermediate NEEDS Verified 02/19/24 15:31 FOLLOW-UP Surgical History History of appendectomy History of cardiac radiofrequency ablation (RFA) S/P hernia repair Social History Smoking Status: Never smoker alcohol intake: never substance use type: does not use ROS ROS ED ROS Narrative Constitutional: No fever, no chills. Generalized weakness. HEENT: No sore throat. No neck pain. No loss of vision. No rhinorrhea. Cardiovascular: No chest pain. No palpitations. No pedal edema. Respiratory: No cough, no shortness of breath. Abdominal: No abdominal pain. No nausea. No vomiting. Genitourinary: No dysuria. No hematuria. Musculoskeletal: No myalgias. No arthralgias. Mild difficulty raising right foot 3 days ago. Neurologic: No headaches. No dizziness. No lightheadedness. Positive head bobbing and tremor of bilateral upper extremities. Skin: No rash. No change in color. Psychiatric: No depression. No anxiety. EXAM Physical Exam Narrative Exam Narrative: Afebrile. Vital signs noted. Cardiovascular examination reveals a regular rate. Lungs clear to auscultation bilaterally. Abdomen soft nontender with normoactive bowel sounds. Neurological examination does show tremor of bilateral upper extremities which is more intentional but sometimes at rest with positive head bobbing. NIH stroke scale 0. Const Vital Signs: 02/22/24 15:58 02/22/24 16:20 02/22/24 16:45 Temperature 97.4 F L Temperature Source Temporal Pulse Rate 66 58 L Respiratory Rate 20 H 21 H Blood Pressure 133/89 H 155/47 H Blood Pressure Mean 103 83 Pulse Ox 100 100 Oxygen Delivery Method Room Air Room Air Room Air 02/22/24 16:50 02/22/24 17:45 02/22/24 18:00 Temperature Temperature Source Pulse Rate 57 L 58 L Respiratory Rate 16 15 Blood Pressure 155/47 H 141/38 H 128/52 H Blood Pressure Mean 83 72 77 Pulse Ox 100 98 Oxygen Delivery Method Room Air Room Air MDM MDM MDM Narrative Medical decision making narrative: I do not feel that patient has stroke team needs to be initiated. She is outside the window for TNK and additionally she does not have a debilitating disorder. The MRI was taken on Thursday, over 24 hours ago. I reviewed the outpatient MRI of the brain which shows 2 small areas of infarct on the left. They are more in the cerebellar area. I will obtain a CTA and stroke workup. Additionally, I do not feel she is a TNK candidate not only because she is outside the window but she has a history of atrial fibrillation and is on Rivaroxaban. I reviewed her laboratory work and she has normal white count of 8.3, hemoglobin 9.7 with hematocrit 31.0, platelet count normal at 250. INR is elevated at 4.7, but she is not on Coumadin. BUN is elevated at 66 and creatinine of 3.29. No prior with which to compare, however she does have history of stage III chronic kidney disease listed in her problem list. Her potassium is elevated at 6.3. Although her EKG demonstrates sinus bradycardia with first-degree AV block at 56 bpm and no acute ST changes, she will be given calcium gluconate. She will also be given insulin and D10. High-sensitivity troponin 33. I received a call from the radiologist regarding the CTA of the head and neck. There is no acute hemorrhage noted and the infarcts of the left cerebellar hemisphere are noted on CT when compared to MRI. No large vessel occlusion but there is atherosclerotic disease. Chest x-ray in 1 view interpreted by myself independently shows no acute process. I reviewed the radiology report which confirms my independent interpretation. At this point in time, given her hyperkalemia and elevated INR as well as what were read on MRI as acute strokes of the cerebellum, I discussed patient with the hospitalist for admission and probable neurology consult. Patient discussed with Dr. Shandra Zafar. History & Record Review Discussion w/independent historian: Patient Lab Data Attestation: I reviewed the patient's lab results. Labs: Laboratory Results - last 24 hr 02/22/24 16:59 WBC 8.3 RBC 3.22 L Hgb 9.7 L Hct 31.0 L MCV 96.3 MCH 30.1 MCHC 31.3 L RDW Std Deviation 56.4 H RDW Coeff of Rohit 15.9 H Plt Count 250 MPV 8.9 Immature Gran % (Auto) 0.600 Neut % (Auto) 71.8 H Lymph % (Auto) 16.6 L [place] % (Auto) 8.4 Eos % (Auto) 1.9 Baso % (Auto) 0.7 Absolute Neuts (auto) 6.0 Absolute Lymphs (auto) 1.38 Nucleated RBC % 0 PT 45.5 H INR 4.7 H* APTT 43.3 H Sodium 139 Potassium 6.3 H* Chloride 112 H Carbon Dioxide 22.0 Anion Gap 5 BUN 66 H Creatinine 3.29 H Estim Creat Clear Calc 8.53 Est GFR (MDRD) Af Amer 17 L Est GFR (MDRD) Non-Af 14 L BUN/Creatinine Ratio 20.1 H Glucose 94 Calcium 8.8 Troponin I High Sens 33 Radiography Chest X-Ray - ED: Read by ED Physician and Read by Radiologist Diagnostic Testing: Clinical Impression(s) from Imaging Studies Brain CT 02/22/24 16:20 IMPRESSION: Atrophy and moderate periventricular white matter ischemic changes. 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 No evidence for hemorrhagic transformation or definitive evidence for new infarct. MRI would be useful for more definitive evaluation in this regard if indicated Electronically Signed: Cj Rodney MD at 17:35 EST , ADDENDUM: 02/22/24 [id number] IMPRESSION: Atrophy and moderate periventricular white matter ischemic changes. 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 No evidence for hemorrhagic transformation or definitive evidence for new infarct. MRI would be useful for more definitive evaluation in this regard if indicated N.B. : The above Results were Read Back by Cj Rodney MD to Johnson Retana MD, and understanding confirmed on 02/22/2024 17:51:30 (ET). Electronically Signed: Cj Rodney MD at 17:35 EST , Head/Neck CTA 02/22/24 16:20 IMPRESSION: Atherosclerotic disease without evidence for hemodynamically significant stenosis or major vessel occlusion Electronically Signed: Cj Rodney MD at 17:47 EST , ADDENDUM: 02/22/24 1757 IMPRESSION: Atherosclerotic disease without evidence for hemodynamically significant stenosis or major vessel occlusion N.B. : The above Results were Read Back by Cj Rodney MD to Johnson Retana MD, and understanding confirmed on 02/22/2024 17:50:52 (ET). Electronically Signed: Cj Rodney MD at 17:47 EST , Chest X-Ray 02/22/24 17:15 IMPRESSION: No acute cardiopulmonary pathology. Electronically Signed: Cj Rodney MD at 18:37 EST , Management Discussion w/another healthcare provider: Hospitalist Discharge Plan Dx/Rx/DC Orders Clinical Impression: Cerebral infarction involving left cerebellar artery, Tremor, Hyperkalemia, Renal failure, CKD (chronic kidney disease) stage 3, GFR 30-59 ml/min, Elevated INR Disposition Disposition: [facility]
--- NOTE | 2024-02-22 17:15 | RAD_ITS ---
STUDY: X-RAY CHEST REASON FOR EXAM: Female, 88 years old. Neuro deficit, acute, stroke suspected TECHNIQUE: AP portable COMPARISON: January 26, 2024. FINDINGS: The lungs are clear and expanded. There is no demonstrated pleural abnormality. Normal size heart. Normal mediastinum and ansley. Normal visualized pulmonary arteries. Normal visualized aortic arch and descending thoracic aorta. Dorsal spine demonstrates degenerative change. Normal visualized ribs, and clavicles. Right shoulder prosthesis is noted There is no demonstrated abnormality of the visualized soft tissue structures of the upper abdomen. RAD/Chest 1 View IMPRESSION: No acute cardiopulmonary pathology. Electronically Signed: Cj Rodney MD at 18:37 EST ,
[2024-02-22 17:24] LABS: Absolute Lymphocyte Count 1.38 X10^3/uL (0.83-4.51); Basophil# 0.06 X10^3/uL; Basophil% 0.7 % (0-1); Eosinophil# 0.16 X10^3/uL; Eosinophils% 1.9 % (0-5); Hemoglobin 9.7 g/dL (12.0-15.0); Lymphocyte # 1.38 X10^3/ul (0.83-4.51); Lymphocyte % 16.6 % (19-41); Mean Corp Hgb Conc 31.3 g/dL (32-36); Mean Corpuscular Hgb 30.1 pg (27.0-32.0); Mean Corpuscular Volume 96.3 fL (81-99); Mean Platelet Vol. 8.9 fl (6.2-12.0); Monocyte% 8.4 % (0-10); NRBC Flagged by Analyzer 0 % (0-5); Neutrophil # 5.97 X10^3/uL (2.7-7.7); Neutrophil % 71.8 % (47-70); Platelet Count 250 K/mm3 (150-450); RBC Distribution Width CV 15.9 % (11.6-14.6); RBC Distribution Width SD 56.4 fl (35.1-43.9); Red Blood Count 3.22 M/mm3 (4.2-5.4); White Blood Count 8.3 K/mm3 (4.4-11.0)
[2024-02-22 17:33] LABS: International Normalized Ratio 4.7; Prothrombin Time (Protime)PT. 45.5 SECONDS (11.7-14.9)
[2024-02-22 17:34] LABS: Partial Thromboplast Time 43.3 Seconds (24.1-36.2)
[2024-02-22 17:42] LABS: Anion Gap 5 (5-15); BUN 66 mg/dL (7-18); BUN/Creat Ratio 20.1 RATIO (10-20); Calcium,Total 8.8 mg/dL (8.5-10.1); Chloride 112 mmol/L (98-107); Creatinine, Serum 3.29 mg/dL (0.55-1.02); EST Glomerular Filtration Rate 14 mL/min (>60); Est Glom Filt Rate - Afr Amer 17 mL/min (>60); Estimated Creatinine Clearance 8.53 ml/min; Glucose 94 mg/dL (74-106); Potassium 6.3 mmol/L (3.5-5.1); Sodium Level 139 mmol/L (136-145); Troponin-I HS 33 pg/mL (3.0-54.0)
--- NOTE | 2024-02-22 18:18 | PCM.HP.STD ---
HPI - General General Date of Admission: 02/22/24 Date of Service: 02/22/24 Chief Complaint: Instructed by PCP to come to the ER HPI Narrative JONNA GIRON, is a 88 F who presented to the emergency department at [facility] on 02/22/2024 at the direction of her primary care physician after an outpatient MRI was performed for some left-sided weakness and some head bobbing/tremor which is new since November. MRI done on 02/20/2024 showed 2 small acute infarcts in the central and posterior aspect of the left cerebellar lobe and a small subcortical infarct in the posterior medial and inferior medial left occipital lobe. Patient likely complains of some left-sided weakness and a tremor as noted above. She denies any other symptoms other than diarrhea. She states the diarrhea started this morning and got better with taking Pepto-Bismol. Her daughter, with whom she lives, was not aware of the presence of diarrhea. Her appetite has been okay overall but her daughter does state possible decreased oral intake of fluids. The patient and her daughter indicated they would not have presented to the emergency department if their primary care physician had not instructed them to do so. She has a known history of atrial fibrillation for which she takes rivaroxaban. Vital signs on presentation showed temperature of 97.4, heart rate 66, blood pressure 133/89, respiratory was 20 and oxygen saturation was 100% on room air. CBC showed normal white count with a stable chronic anemia with a hemoglobin of 9.7 that is normocytic in nature. Her INR was elevated at 4.7 and her coags were up as well. She is on Xarelto at baseline and I suspect this is related to the rivaroxaban dosing at 20 mg daily in conjunction with her acute kidney injury. Sodium was normal but her serum potassium was 6.3 she is on supplemental potassium at baseline. Chloride was 112, BUN was 66 and serum creatinine was 3.29 (baseline BUN appears to run between 20 and 30 and baseline serum creatinine appears to run between 1.25 and 1.4). Troponin was 33. Given her acute kidney injury in conjunction with her new stroke, she will be admitted to PCU. [facility] Medical History Bradycardia, sinus Hyperlipidemia Aortic valve disease Cardiac arrhythmia Fibromyalgia CKD (chronic kidney disease) stage 3, GFR 30-59 ml/min Rheumatoid arthritis Osteoporosis Afib Essential (primary) hypertension Shoulder pain with history of repair of rotator cuff Sjogren syndrome Home Medications ?Medication ?Instructions ?Recorded ?Last Taken ?Type atorvastatin 40 mg tablet 40 mg PO DAILY 09/07/23 02/21/24 History cholecalciferol (vitamin D3) 125 125 mcg PO QODAY 09/07/23 02/22/24 History mcg (5,000 unit) capsule ferrous sulfate 325 mg (65 mg 325 mg PO DAILY 09/07/23 02/21/24 History iron) tablet gabapentin 300 mg capsule 300 mg PO BID 09/07/23 02/22/24 History lisinopril 40 mg tablet 40 mg PO DAILY 09/07/23 02/22/24 History mecobalamin (vitamin B12) 1,000 1,000 mcg PO QMWF 09/07/23 02/22/24 History mcg chewable tablet hydroxychloroquine 200 mg tablet 200 mg PO DAILY Immunosupressive 01/27/24 Unknown History furosemide 40 mg tablet 40 mg PO DAILY #30 tabs 01/30/24 02/22/24 Rx potassium chloride 20 mEq 20 meq PO DAILY #30 tabs 01/30/24 02/22/24 Rx tablet,extended release(part/cryst) (Klor-Con M) rivaroxaban 20 mg tablet (Xarelto) 20 mg PO QPM 02/15/24 02/22/24 History propranolol 40 mg tablet 40 mg PO BID 02/22/24 Unknown History Allergy/AdvReac Type Severity Reaction Status Date / Time ciprofloxacin (From Cipro) Allergy Intermediate NEEDS Verified 02/19/24 15:31 FOLLOW-UP duloxetine Allergy Intermediate NEEDS Verified 02/19/24 15:31 FOLLOW-UP ibuprofen Allergy Intermediate NEEDS Verified 02/19/24 15:31 FOLLOW-UP meloxicam Allergy Intermediate NEEDS Verified 02/19/24 15:31 FOLLOW-UP Penicillins Allergy Intermediate NEEDS Verified 02/19/24 15:31 FOLLOW-UP sulfamethoxazole (From Allergy Intermediate NEEDS Verified 02/19/24 15:31 Septra) FOLLOW-UP trimethoprim (From Septra) Allergy Intermediate NEEDS Verified 02/19/24 15:31 FOLLOW-UP Surgical History History of appendectomy History of cardiac radiofrequency ablation (RFA) S/P hernia repair Social History (Updated 02/22/24 @ 19:[address] Elsy Zafar, DO) household members: family housing: house Smoking Status: Never smoker alcohol intake: never substance use type: does not use ROS Constitutional Constitutional: Denies anorexia, change in weight, chills, fatigue, fever(s), malaise, night sweats, weakness or other Eyes Eyes: Denies blurry vision, change in eye color, change in vision, discharge from eye(s), double vision, erythema, eye pain, loss of vision or other ENT HEENT: Denies abnormal hearing, dysphagia, ear pain, epistaxis, headache(s), hearing loss, nasal congestion, nasal discharge, post nasal drip, sinus pressure, sore throat or other Cardiovascular Cardiovascular: Denies chest pain, claudication, dyspnea on exertion, edema, lightheadedness, orthopnea, palpitations, paroxysmal nocturnal dyspnea, rapid heart rate, syncope or other Respiratory/Chest Respiratory/Chest: Denies cough, dyspnea, excessive phlegm production, hemoptysis, productive cough, shortness of breath at rest, shortness of breath with exertion, wheezing or other Gastrointestinal Gastrointestinal: Reports abdominal pain and diarrhea; Denies coffee ground emesis, constipation, dyspepsia, hematemesis, hematochezia, loose stools, melena, nausea, vomiting or other Genitourinary Genitourinary: Denies burning urination, difficulty urinating, dysuria, hematuria, nocturia, urinary frequency, urinary hesitancy, urinary incontinence, urinary urgency or other Musculoskeletal Musculoskeletal: Denies arthralgias, back pain, joint pain, joint stiffness, joint swelling, myalgias, neck pain or other Neurologic Neurologic: Reports focal weakness and tremor(s) Psychiatric Psychiatric: Denies anxiety, depression, homicidal ideation, suicidal ideation or other Endocrine Endocrinology: Denies change in body appearance, cold intolerance, excessive sweating, heat intolerance, polydipsia, polyuria or other Hematologic/Lymphatic Hematologic/Lymphatic: Denies anemia, easy bleeding, easy bruising, lymphadenopathy or other Allergic/Immunologic Allergic/Immunologic: Denies rhinitis, hives, eczemia, asthma or other Vital Signs Vital Signs Vital Signs: 02/22/24 15:58 02/22/24 16:20 02/22/24 16:45 Temperature 97.4 F L Temperature Source Temporal Pulse Rate 66 58 L Respiratory Rate 20 H 21 H Blood Pressure 133/89 H 155/47 H Blood Pressure Mean 103 83 Pulse Ox 100 100 Oxygen Delivery Method Room Air Room Air Room Air 02/22/24 16:50 02/22/24 17:45 02/22/24 18:00 Temperature Temperature Source Pulse Rate 57 L 58 L Respiratory Rate 16 15 Blood Pressure 155/47 H 141/38 H 128/52 H Blood Pressure Mean 83 72 77 Pulse Ox 100 98 Oxygen Delivery Method Room Air Room Air Weight Weight: 44 kg Body Mass Index (BMI) 21.7 Physical Exam Const alert, oriented x3 and no apparent distress Constitutional Narrative: Thin, elderly, frail-appearing, white female, sitting up in bed, appears comfortable, daughter at bedside, does not appear toxic, nursing at bedside, patient interacts appropriately General Appearance: cooperative HEENT normocephalic, head/scalp atraumatic and moist oral mucous membranes HEENT Narrative: Dentures in place, Mallampati 2, no thrush, mild to moderate hearing loss Eyes PERRL, EOMs intact bilaterally and conjunctivae normal Eyes Narrative: No scleral icterus Neck no lymphadenopathy and supple Neck Narrative: Trachea midline, no thyroid enlargement Resp normal respiratory effort, no retractions, no use of accessory muscles and clear to auscultation bilaterally Auscultation: Negative for rales, rhonchi or wheezes Cardio regular rate, regular rhythm, S1 normal heart sound, S2 normal heart sound, no murmurs, no rub, no gallops and no clicks GI normal to inspection, nondistended, normoactive bowel sounds and soft to palpation GI Narrative: Mild diffuse tenderness especially lower quadrants bilaterally Extremity no clubbing, cyanosis or edema Extremity Narrative: Pedal pulses and radial pulses are 2+ Skin no wounds, No skin turgor normal, no jaundice, no petechiae and no mottling Neuro oriented x3, moves all extremities and no focal motor deficits Neuro Narrative: Significant head tremor noted at rest seems to dissipate with movement and interaction Sensorium / Orientation: awake, oriented to person, oriented to place and oriented to time Speech: speech normal Psych affect normal Psych Narrative: Interacts appropriately, very pleasant Results Lab / Micro Data 02/22/24 16:59 02/22/24 16:59 Labs: Laboratory Results - last 24 hr 02/22/24 16:59: WBC 8.3, RBC 3.22 L, Hgb 9.7 L, Hct 31.0 L, MCV 96.3, MCH 30.1, MCHC 31.3 L, RDW Std Deviation 56.4 H, RDW Coeff of Rohit 15.9 H, Plt Count 250, MPV 8.9, Immature Gran % (Auto) 0.600, Neut % (Auto) 71.8 H, Lymph % (Auto) 16.6 L, Henry % (Auto) 8.4, Eos % (Auto) 1.9, Baso % (Auto) 0.7, Absolute Neuts (auto) 6.0, Absolute Lymphs (auto) 1.38, Nucleated RBC % 0, PT 45.5 H, INR 4.7 H*, APTT 43.3 H, Sodium 139, Potassium 6.3 H*, Chloride 112 H, Carbon Dioxide 22.0, Anion Gap 5, BUN 66 H, Creatinine 3.29 H, Estim Creat Clear Calc 8.53, Est GFR (MDRD) Af Amer 17 L, Est GFR (MDRD) Non-Af 14 L, BUN/Creatinine Ratio 20.1 H, Glucose 94, Calcium 8.8, Troponin I High Sens 33 Imaging Radiology Impression Brain CT 02/22/24 16:20 IMPRESSION: Atrophy and moderate periventricular white matter ischemic changes. 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 No evidence for hemorrhagic transformation or definitive evidence for new infarct. MRI would be useful for more definitive evaluation in this regard if indicated Electronically Signed: Cj Rodney MD at 17:35 EST , ADDENDUM: 02/22/24 8175 IMPRESSION: Atrophy and moderate periventricular white matter ischemic changes. 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 No evidence for hemorrhagic transformation or definitive evidence for new infarct. MRI would be useful for more definitive evaluation in this regard if indicated N.B. : The above Results were Read Back by Cj Rodney MD to Johnson Retana MD, and understanding confirmed on 02/22/2024 17:51:30 (ET). Electronically Signed: Cj Rodney MD at 17:35 EST , Head/Neck CTA 02/22/24 16:20 IMPRESSION: Atherosclerotic disease without evidence for hemodynamically significant stenosis or major vessel occlusion Electronically Signed: Cj Rodney MD at 17:47 EST Reading Location ID and State: [address] [place] [address] Tel [phone], Service support , ADDENDUM: 02/22/24 1757 IMPRESSION: Atherosclerotic disease without evidence for hemodynamically significant stenosis or major vessel occlusion N.B. : The above Results were Read Back by Cj Rodney MD to Johnson Retana MD, and understanding confirmed on 02/22/2024 17:50:52 (ET). Electronically Signed: Cj Rodney MD at 17:47 EST Reading Location ID and State: [address] [place] [address] Tel , Service support , Assessment & Plan Assessment/Plan (1) Elevated INR: (2) JOANNA (acute kidney injury): (3) Hyperkalemia: (4) Tremor: (5) CVA (cerebral vascular accident): PLAN: Plan JOANNA on CKD stage IIIb -Baseline serum creatinine runs between 1.25 and 1.4 -Urine creatinine on presentation was 3.29 -Hold home diuretics -Hold home potassium -Hold home lisinopril -Will discontinue Xarelto and start Eliquis at 2.5 mg daily -Check urine sodium, urine creatinine, urine urea, and UA -Will give 1 L IV fluids for now until we have further data -Check retroperitoneal ultrasound patient is making urine and note urgent needs for dialysis -Will hold off on nephrology consult for now Subacute left posterior circulation strokes -MRI from 02/20/2024 showed 2 small acute infarcts in the central and posterior aspect of the left cerebellar lobe and 1 in the left occipital lobe -The patient has had previous echocardiogram with negative bubble study so will not repeat at this time -CTA of the head and neck shows atherosclerotic disease without evidence of hemodynamically significant stenosis or major vessel occlusion and plaque is minimal to moderate in the carotid arteries -Continue DOAC but transition from Xarelto to Eliquis 2.5 mg per A-fib dosing guidelines for age and renal dysfunction -Start aspirin 81 mg daily -Hold home diuretics and losartan -Check lipids -continue home atorvastatin -Check A1c -Consult neurology -PT/OT/speech therapy consultation -Highly recommend outpatient follow-up with neurology after discharge Hyperkalemia -Related to the above -No EKG changes consistent with hyperkalemia -Patient was treated with calcium gluconate and insulin/glucose in the emergency department -IV fluids while further workup for renal dysfunction is in progress -Hold home potassium supplementation -Will hold off on Kayexalate for now and reassess lab in a.m. Diarrhea -New onset -Check C. difficile, enteric panel, lactoferrin -Monitor stool output Elevated INR -Highly suspect it is related to Xarelto dosing in the setting of acute kidney injury -Discontinue Xarelto and start Eliquis 2.5 mg p.o. twice daily as indicated for A-fib with renal dysfunction in conjunction with her age greater than 80 -Recommend repeating in 48 hours and if still elevated may need treatment with vitamin K as this could be nutritional deficiency as well Tremor -Doubt the tremor is related to acute strokes -Recommend outpatient follow-up with neurology Paroxysmal atrial fibrillation -In sinus rhythm on presentation -Stop Xarelto next-start Eliquis 2.5 mg p.o. twice daily with renal dysfunction and age greater than 80 -Beta-alex and amiodarone were discontinued due to bradycardia -Cardiology is monitoring for need of pacemaker Chronic HFpEF/pulmonary hypertension -Echocardiogram from 12/20/2023 shows an EF of 55% with a negative bubble study, mild to moderate eccentric mitral valve insufficiency and pulmonary systolic pressure of 60 mmHg read with diffuse aortic valve thickening -Diuretics on hold due to JOANNA Essential hypertension/hyperlipidemia -Hold Lasix, hold lisinopril -As needed medication available per stroke order set -Continue statin RA/Sjogren's syndrome -Continue home Plaquenil Chronic anemia -Normocytic and suspect related to chronic disease with history of Sjogren's and RA -Continue home iron supplementation -Hemoglobin is stable when compared to previous data DVT prophylaxis -Eliquis 2.5 mg p.o. twice daily CODE STATUS -DNR CCA with no intubation per discussion at the time of admission with daughter at the bedside Charges/Coding Visit Charges Inpatient E&M: 72194 Init Hosp L3
--- NOTE | 2024-02-22 18:32 | US_ITS ---
STUDY: RENAL ULTRASOUND - COMPLETE REASON FOR EXAM: Female, 88 years old. JONANA TECHNIQUE: Ultrasound evaluation of the kidneys was performed with real-time and static sylvester-scale imaging. COMPARISON: None. FINDINGS: RIGHT KIDNEY: Normal location of the right kidney, which is lower normal in size. The right kidney measures 7.8 x 3.6 x 3.5 cm. There is a thin cortex of the right kidney. The renal cortex measures .6 cm. There is no right renal mass or cyst. There are no right renal calculi. There is no right hydronephrosis. DISTAL RIGHT URETER: There is non-visualization of the distal right ureter. There is no demonstrated right ureterovesical junction calculus. There is a visualized right ureteral jet. LEFT KIDNEY: Normal location of the left kidney, which is lower normal in size. The left kidney measures 7.8 x 3.5 x 3.6 cm. There is a thin cortex of the left kidney. The renal cortex measures 1.6 cm. There are 2 cysts measuring 2 x 1.7 x 2.3 cm and 6 x 5 x 5 mm. There are no left renal calculi. There is no left hydronephrosis. DISTAL LEFT URETER: There is non-visualization of the distal left ureter. There is no demonstrated left ureterovesical junction calculus. There is a visualized left ureteral jet. BLADDER: The distended urinary bladder has a volume of 301.4 ml. . There is a normal wall thickness of the distended urinary bladder. There is no demonstrated mass within the urinary bladder. There are no demonstrated bladder calculi. US/Kidney and Bladder IMPRESSION: Chronic renal parenchymal disease and 2 small cyst in left kidney Incidental finding of gallstones without evidence for acute cholecystitis. Electronically Signed: Cj Rodney MD at 19:47 EST ,
[2024-02-22] MEDS: Dextrose 10%-Water 250 ML 999 ML IV (18:34)
[2024-02-22] MEDS: Insulin Lispro 10 UNIT in Syringe 0 ML 6 UNIT IV (18:34)
[2024-02-22] MEDS: Calcium Gluconate IV 3 GM in Syringe 1 EACH IV (18:34)
[2024-02-22 19:47] LABS: Bacteria 0 SEEN /hpf (None Seen); Mucous, Urine 0 SEEN /hpf (<or=2+); Red Blood Cells-Urine 0 SEEN /hpf (0-5); Squamous Epithelial Cells - UA 0 SEEN /hpf (5-10)
[2024-02-22 20:11] LABS: Color, Urine Yellow (Yellow); Glucose, Dipstick Normal (Normal); Ketone-Dipstick Negative (Negative); Leukocyte Esterase-Dipstick Negative /ul (Negative); Nitrite-Dipstick Negative (Negative); Occult Blood-Urine 25 /ul (Negative); Protein-Dipstick Negative (Negative); Specific Gravity, Urine 1.005 (1.002-1.030); Urine Bilirubin Dipstick Negative (Negative); Urine Clarity Clear (Clear); Urine Urobilinogen Normal (Normal)
[2024-02-22 20:18] LABS: Urine Sodium 96 mmol/L (Not Establ.)
[2024-02-22 20:27] LABS: Urea Nitrogen, Urine 224 mg/dL (NO RANGE EST.)
[2024-02-22 20:35] LABS: Hemoglobin A1c 5.3 % (3.8-5.6)
[2024-02-22 20:51] LABS: White Blood Cells 0-5 SEEN /hpf (0-5)
[2024-02-22] MEDS: 0.9% Normal Saline (1000mL) 1,000 ML 75 ML IV (21:08)
[2024-02-22] MEDS: APIXABAN 2.5 MG TABLET (WCH) PO (23:04)
[2024-02-23] VITALS (8 sets, daily range): BP systolic 101–139; BP diastolic 50–98; PULSE 45–55; RESP 16–18; TEMP 36.1–36.6; O2SAT 97–100; BMI 20.2; BMI 20.6
[2024-02-23 06:35] LABS: Absolute Lymphocyte Count 1.02 X10^3/uL (0.83-4.51); Absolute Neutrophil Count 4.5 X10^3/uL (2.0-7.7); Basophil# 0.04 X10^3/uL; Basophil% 0.6 % (0-1); Eosinophil# 0.25 X10^3/uL; Eosinophils% 3.9 % (0-5); Hematocrit 32.4 % (37-47); Hemoglobin 9.9 g/dL (12.0-15.0); Lymphocyte # 1.02 X10^3/ul (0.83-4.51); Lymphocyte % 15.9 % (19-41); Mean Corp Hgb Conc 30.6 g/dL (32-36); Mean Corpuscular Hgb 29.6 pg (27.0-32.0); Mean Corpuscular Volume 96.7 fL (81-99); Mean Platelet Vol. 8.9 fl (6.2-12.0); Monocyte# 0.52 X10^3/uL; Monocyte% 8.1 % (0-10); NRBC Flagged by Analyzer 0 % (0-5); Neutrophil # 4.53 X10^3/uL (2.7-7.7); Neutrophil % 70.7 % (47-70); Platelet Count 222 K/mm3 (150-450); RBC Distribution Width CV 15.7 % (11.6-14.6); RBC Distribution Width SD 56.1 fl (35.1-43.9); Red Blood Count 3.35 M/mm3 (4.2-5.4); White Blood Count 6.4 K/mm3 (4.4-11.0)
--- NOTE | 2024-02-23 07:38 | PN.HOSP_ITS ---
Reason for Visit Reason for Visit: Diagnoses Hyperkalemia (02/22/24) Cerebral infarction, unspecified (02/22/24) Acute kidney failure, unspecified (02/22/24) Tremor, unspecified (02/22/24) Abnormal coagulation profile (02/22/24) Objective Data Objective Data Vital Signs: Vital Signs Temp Pulse Resp BP Pulse Ox O2 Del Method 96.9 F L 50 L 16 121/73 H 100 Room Air 02/23/24 04:25 02/23/24 04:25 02/23/24 04:25 02/23/24 04:25 02/23/24 04:25 02/23/24 04:25 Oxygen Delivery Method Room Air Weight: 92 lb 2.452 oz Body Mass Index (BMI) 20.6 Intake & Output: Intake and Output for Last 24 Hours 02/21/24 02/22/24 02/23/24 23:59 23:59 23:59 Intake Total 280 / 280 Output Total 250 / 250 Balance 280 / 280 -250 / -250 Lab / Micro Data 02/23/24 06:04 02/23/24 11:40 Labs: Laboratory Results - last 24 hr 02/22/24 16:59: WBC 8.3, RBC 3.22 L, Hgb 9.7 L, Hct 31.0 L, MCV 96.3, MCH 30.1, MCHC 31.3 L, RDW Std Deviation 56.4 H, RDW Coeff of Rohit 15.9 H, Plt Count 250, MPV 8.9, Immature Gran % (Auto) 0.600, Neut % (Auto) 71.8 H, Lymph % (Auto) 16.6 L, [place] % (Auto) 8.4, Eos % (Auto) 1.9, Baso % (Auto) 0.7, Absolute Neuts (auto) 6.0, Absolute Lymphs (auto) 1.38, Nucleated RBC % 0, PT 45.5 H, INR 4.7 H*, APTT 43.3 H, Sodium 139, Potassium 6.3 H*, Chloride 112 H, Carbon Dioxide 22.0, Anion Gap 5, BUN 66 H, Creatinine 3.29 H, Estim Creat Clear Calc 8.53, Est GFR (MDRD) Af Amer 17 L, Est GFR (MDRD) Non-Af 14 L, BUN/Creatinine Ratio 20.1 H, Glucose 94, Hemoglobin A1c 5.3, Calcium 8.8, Troponin I High Sens 33 02/22/24 19:30: Urine Color Yellow, Urine Clarity Clear, Urine pH 6.0, Ur Specific [place] 1.005, Urine Protein Negative, Urine Glucose (UA) Normal, Urine Ketones Negative, Urine Occult Blood 25 H, Urine Nitrite Negative, Urine Bilirubin Negative, Urine Urobilinogen Normal, Ur Leukocyte Esterase Negative, Urine RBC 0 SEEN, Urine WBC 0-5 SEEN, Ur Squamous Epith Cells 0 SEEN, Urine Bacteria 0 SEEN, Urine Mucus 0 SEEN, Ur Random Sodium 96, Urine Creatinine 20.00, Urine Urea Nitrogen 224 02/23/24 06:04: WBC 6.4, RBC 3.35 L, Hgb 9.9 L, Hct 32.4 L, MCV 96.7, MCH 29.6, MCHC 30.6 L, RDW Std Deviation 56.1 H, RDW Coeff of Rohit 15.7 H, Plt Count 222, MPV 8.9, Immature Gran % (Auto) 0.800, Neut % (Auto) 70.7 H, Lymph % (Auto) 15.9 L, [place] % (Auto) 8.1, Eos % (Auto) 3.9, Baso % (Auto) 0.6, Absolute Neuts (auto) 4.5, Absolute Lymphs (auto) 1.02, Nucleated RBC % 0 Radiography Diagnostic Testing: Radiology Impression Brain CT 02/22/24 16:20 IMPRESSION: Atrophy and moderate periventricular white matter ischemic changes. 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 No evidence for hemorrhagic transformation or definitive evidence for new infarct. MRI would be useful for more definitive evaluation in this regard if indicated Electronically Signed: Cj Rodney MD at 17:35 EST Reading Location ID and State: [facility] / [place] Tel , Service support , ADDENDUM: 02/22/24 7425 IMPRESSION: Atrophy and moderate periventricular white matter ischemic changes. 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 No evidence for hemorrhagic transformation or definitive evidence for new infarct. MRI would be useful for more definitive evaluation in this regard if indicated N.B. : The above Results were Read Back by Cj Rodney MD to Johnson Retana MD, and understanding confirmed on 02/22/2024 17:51:30 (ET). Electronically Signed: Cj Rodney MD at 17:35 EST , Head/Neck CTA 02/22/24 16:20 IMPRESSION: Atherosclerotic disease without evidence for hemodynamically significant stenosis or major vessel occlusion Electronically Signed: Cj Rodney MD at 17:47 EST , ADDENDUM: 02/22/24 1757 IMPRESSION: Atherosclerotic disease without evidence for hemodynamically significant stenosis or major vessel occlusion N.B. : The above Results were Read Back by Cj Rodney MD to Johnson Retana MD, and understanding confirmed on 02/22/2024 17:50:52 (ET). Electronically Signed: Cj Rodney MD at 17:47 EST , Chest X-Ray 02/22/24 17:15 IMPRESSION: No acute cardiopulmonary pathology. Electronically Signed: Cj Rodney MD at 18:37 EST , Renal Ultrasound 02/22/24 18:32 IMPRESSION: Chronic renal parenchymal disease and 2 small cyst in left kidney Incidental finding of gallstones without evidence for acute cholecystitis. Electronically Signed: Cj Rodney MD at 19:47 EST , Physical Exam Narrative Seen and examined Symptoms started since November with tremors and shaking of head, whole body including head, postural instability, poor equilibrium with near fall situations. She said she had 3 times leg collapse since November. She also had loose bowel movement about 3-4 times per day, last 1 was just before yesterday at noon. Complain of mild burning micturition increased frequency for last couple days. No fever. Physical exam General: Alert, Oriented x3, Cooperative HEENT: Nystagmus present. Mild strabismus of left eye, lateral rectus. Atraumatic, PERRLA, EOMI, Normocephalic Oral: Oral mucosa dry. No Gingival or Mucosal Lesions/ Ulcerations Neck: Supple, No JVD, Negative Carotid Bruits Chest wall/Lungs: Air entry diminished in bilateral lung bases. No crepitation/rhonchi Cardiovascular: Sinus bradycardia, Normal S1, Normal S2, systolic murmur Abdomen: Bowel Sounds hyper, Soft, Non Tender, Non-Distended : Positive dysuria. No renal angle tenderness. No suprapubic tenderness. Extremities: No edema, Capillary Refill Less than 3 Seconds Skin: No rashes, No breakdown Musculoskeletal: Muscle strength 4/5 at knees and hip joints. no Tenderness to Palpation of Joints or Extremities Neurological: Postural instability, gait instability. Tremors of head bobbing, flexion extension and horizontal. Hands tremor. Cranial nerves II-XII grossly intact, DTR 2+/4. Psych/Mental Status: Flat affect Assessment & Plan Assessment/Plan (1) Elevated INR: (2) JOANNA (acute kidney injury): (3) Hyperkalemia: (4) Tremor: (5) CVA (cerebral vascular accident): PLAN: Plan 88-year-old female was sent to ED for abnormal MRI which was done on 02/19. She also had weakness of both upper arms. She had left leg weakness/was not able to range on Thursday but this has gotten better. 1. 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 Serum creatinine on presentation was 3.29, improved to 2.82. Diuretics, lisinopril and potassium supplement on hold. Urine sodium is 96, creatinine 20, BUN 224. Overall, urine electrolytes suggestive of diuretic effect. discontinue Xarelto. Patient has hyperkalemia, normal anion gap metabolic acidosis. Hyperkalemia cocktail ordered. Nephrology consult requested. Renal ultrasound shows chronic renal parenchymal disease. 2 small cysts in the left kidney. Incidental finding of gallstones without evidence of acute cholestatic 2. Subacute left posterior circulation strokes -MRI from 02/20/2024 showed 2 small acute infarcts in the central and posterior aspect of the left cerebellar lobe and 1 in the left occipital lobe -The patient has had previous echocardiogram with negative bubble study so will not repeat at this time -CTA of the head and neck shows atherosclerotic disease without evidence of hemodynamically significant stenosis or major vessel occlusion and plaque is minimal to moderate in the carotid arteries. Patient INR is very high 4.7 although dosing of DOAC not directly related with INR but causes elevated INR and patient recovering from JOANNA therefore we will hold DOAC but later start low-dose Eliquis 2.5 mg twice daily Continue baby aspirin. PT, OT, speech therapy/swallow evaluation and management, nursing NIH stroke scale, BP and glucose monitoring and control as per stroke protocol. TSH normal. LDL 53. A1c 5.3% TSH, A1c fasting lipid profile tomorrow AM. MRI brain and 2D echo with bubble contrast study ordered [facility] teleneurology consult ordered 3. Hyperkalemia: Serum potassium was 6.3. Due to JOANNA. As mentioned -No EKG changes consistent with hyperkalemia Treated with hyperkalemia cocktail encapsulate. Repeat potassium is normal 4.4. 4. Paroxysmal A-fib: Sinus rhythm on presentation. Patient bradycardia heart rate in low 50s. Hold beta-alex and amiodarone. -Cardiology is monitoring for need of pacemaker as outpatient 5. Chronic HFpEF/pulmonary hypertension -Echocardiogram from 12/20/2023 shows an EF of 55% with a negative bubble study, mild to moderate eccentric mitral valve insufficiency and pulmonary systolic pressure of 60 mmHg read with diffuse aortic valve thickening -Diuretics on hold due to JOANNA 6. Diarrhea: The reason is unclear but stool collected. C. difficile PCR negative. Enteric pathogen panel and lactoferrin pending. Essential hypertension/hyperlipidemia -Hold Lasix, hold lisinopril -As needed medication available per stroke order set -Continue statin RA/Sjogren's syndrome -Continue home Plaquenil Chronic anemia -Normocytic and suspect related to chronic disease with history of Sjogren's and RA -Continue home iron supplementation -Hemoglobin is stable when compared to previous data DVT prophylaxis -Eliquis 2.5 mg p.o. twice daily CODE STATUS -DNR CCA with no intubation per discussion at the time of admission with daughter at the bedside Charges/Coding Addendum Addendum: Total time of the visit including total time spent in counseling or coordination of care, (more than 50% of the total time, spent in obtaining medical information from nurses and other ancillary care providers ,explaining to the patient about labs, imaging, diagnosis and management of active complex medical conditions), management of JOANNA, hyperkalemia, stroke discussion with marketing programs specialist and neurology, review of labs and imaging is 35 minutes. Visit Charges Inpatient E&M: 49422 Subs Hosp L3
[2024-02-23 08:10] LABS: ALB/GLOB Ratio 0.9 RATIO (0.9-2.4); AST(SGOT) 52 U/L (15-37); Alanine Aminotransfer ALT/SGPT 93 U/L (13-56); Albumin, Serum 2.8 g/dL (3.2-5.0); Alkaline Phosphatase 69 U/L (45-117); Anion Gap 6 (5-15); BUN 60 mg/dL (7-18); BUN/Creat Ratio 21.3 RATIO (10-20); Calcium,Total 9.6 mg/dL (8.5-10.1); Chloride 112 mmol/L (98-107); Cholesterol 114 mg/dL (200); Creatinine, Serum 2.82 mg/dL (0.55-1.02); EST Glomerular Filtration Rate 17 mL/min (>60); Est Glom Filt Rate - Afr Amer 20 mL/min (>60); Estimated Creatinine Clearance 9.45 ml/min; Globulin 3.2 g/dL (2.2-4.2); Glucose 70 mg/dL (74-106); High Density Lipoprotein 46 mg/dL; Magnesium 2.4 mg/dL (1.6-2.6); Phosphorus 5.9 mg/dL (2.5-4.9); Potassium 6.2 mmol/L (3.5-5.1); Sodium Level 138 mmol/L (136-145); Triglycerides 75 mg/dL; Very Low Density Lipoprotein 15 mg/dL (5-40)
[2024-02-23] MEDS: Atorvastatin Calcium 40 MG Tablet PO (08:43)
[2024-02-23] MEDS: Ferrous Sulfate 325 MG Tablet PO (08:43)
[2024-02-23] MEDS: Aspirin 81 MG TAB.CHEW PO (08:43)
[2024-02-23] MEDS: Hydroxychloroquine 200 MG Tablet PO (08:43)
[2024-02-23] MEDS: Sodium Polystyrene Sulfonate 15 GM/60 ML UDC 30 GM PO (09:03)
[2024-02-23] MEDS: Dextrose 10%-Water 250 ML 999 ML IV (09:03)
[2024-02-23] MEDS: Insulin Lispro 10 UNIT in Syringe 0 ML 6 UNIT IV (09:35)
--- NOTE | 2024-02-23 10:08 | CASEMGMT ---
Addendum entered by Bernadine Hall 02/23/24 10:14: Pt also receives SW services through [facility]. Original Note: Discharge Planning HH resumption referral sent to [facility]. Pt is currently receiving PT/OT/SN. Bernadine Hall DC Planning Asst.
[2024-02-23] MEDS: Sodium Bicarbonate 150 MEQ in Dextrose 5%-Water (1000mL Bag) 1,000 ML 125 MEQ IV (10:18)
--- NOTE | 2024-02-23 10:30 | EKG12_ITS ---
Test Reason : Blood Pressure : */* mmHG Vent. Rate : 47 BPM Atrial Rate : 47 BPM P-R Int : 246 ms QRS Dur : 138 ms QT Int : 648 ms P-R-T Axes : 81 221 27 degrees QTcB Int : 573 ms Atrial flutter Right bundle branch block Abnormal ECG When compared with ECG of 22-Feb-2024 16:35, MANUAL COMPARISON REQUIRED DATA IS UNCONFIRMED Confirmed by SANDEE KHAN, OMKAR ([id number]), multimedia editor MAYRA FORREST ([id number]) on 02/24/2024 5:48:11 AM Referred By: Confirmed By: OMKAR IGNACIO MD
[2024-02-23 13:00] LABS: Anion Gap 8 (5-15); BUN 55 mg/dL (7-18); BUN/Creat Ratio 20.7 RATIO (10-20); Calcium,Total 9.7 mg/dL (8.5-10.1); Chloride 110 mmol/L (98-107); Creatinine, Serum 2.66 mg/dL (0.55-1.02); EST Glomerular Filtration Rate 18 mL/min (>60); Est Glom Filt Rate - Afr Amer 22 mL/min (>60); Estimated Creatinine Clearance 10.02 ml/min; Glucose 112 mg/dL (74-106); Potassium 4.4 mmol/L (3.5-5.1); Sodium Level 137 mmol/L (136-145)
--- NOTE | 2024-02-23 13:11 | CON.PCM.RE_ITS ---
Assessment & Plan Assessment/Plan (1) JOANNA (acute kidney injury): PLAN: Creatinine 3.29 on admit 02/22/24 with recent contrast exposure, poor oral intake, on lisinopril. Suspect ATN Creatinine improved to 2.66 with iv fluids. Renal US no hydronephrosis. Continue to hold lisinopril. Avoid nephrotoxins (2) CKD stage 3b, 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: PLAN: due to hypertensive nephropathy. chronic interstital nephritis. Baseline creatinine 1.1 to 1.2. (3) Hyperkalemia: PLAN: due to potassium supplement with lisinopril in presence of JOANNA resolved with medical mgmt (4) Tremor: PLAN: possibly from uremia, stroke (5) Cerebral infarction involving left cerebellar artery: PLAN: neurology consulted (6) CVA (cerebral vascular accident): (7) Essential (primary) hypertension: PLAN: stable BP (8) Supratherapeutic INR: PLAN: INR 4.7 on xarelto at home for history of afib. (9) Debility: PLAN: frailty HPI Consult Data Date of Consult: 02/24/24 HPI Narrative Reason for Consultation: JOANNA, hyperkalemia HPI Narrative: JONNA GIRON, is a 88 F who presents to [facility] for stroke, JOANNA with creatinine of 3.29, hyperkalemia with potassium at 6.3. She had head tremors, weakness, anorexia, nausea. She was instructed by her PCP to go to the ER for abnormal findings on MRI of brain done on 02/20/24 as outpatient that showed 2 small acute infarcts are present in the central and posterior aspect of the left cerebellar lobe. A single small subcortical infarct was reported in the posterior medial and inferior aspect of the left occipital lobe. She received iv contrast for CTA on 02/22/24. Neurology is on consult. She was on lisinopril and potassium at home. Potassium improved to 4.4 after medical management. Creatinine improved to 2.66 today with iv fluids. She has not been feeling well since November 2023 after her reclast treatment according to the patient. She has CKD stage 3B from hypertensive nephrosclerosis with baseline creatinine 1.1 in September 2023. She complained of chest pain, swelling in her legs and CHF treated with lasix during her hospitalization back in [facility] . She denied taking water pills at home. Edema and dyspnea improved. Currently she is on bicarbonate drip with lasix. She has a history of PAF on xarelto. Her INR is supratherapeutic at 4.7 with hgb 9.9g. [facility] Medical History Bradycardia, sinus Hyperlipidemia Aortic valve disease Cardiac arrhythmia Fibromyalgia CKD (chronic kidney disease) stage 3, GFR 30-59 ml/min Rheumatoid arthritis Osteoporosis Afib Essential (primary) hypertension Shoulder pain with history of repair of rotator cuff Sjogren syndrome Home Medications ?Medication ?Instructions ?Recorded ?Last Taken ?Type atorvastatin 40 mg tablet 40 mg PO DAILY 09/07/23 02/21/24 History cholecalciferol (vitamin D3) 125 125 mcg PO QODAY 09/07/23 02/22/24 History mcg (5,000 unit) capsule ferrous sulfate 325 mg (65 mg 325 mg PO DAILY 09/07/23 02/21/24 History iron) tablet gabapentin 300 mg capsule 300 mg PO BID 09/07/23 02/22/24 History lisinopril 40 mg tablet 40 mg PO DAILY 09/07/23 02/22/24 History mecobalamin (vitamin B12) 1,000 1,000 mcg PO QMWF 09/07/23 02/22/24 History mcg chewable tablet hydroxychloroquine 200 mg tablet 200 mg PO DAILY Immunosupressive 01/27/24 Unknown History furosemide 40 mg tablet 40 mg PO DAILY #30 tabs 01/30/24 02/22/24 Rx potassium chloride 20 mEq 20 meq PO DAILY #30 tabs 01/30/24 02/22/24 Rx tablet,extended release(part/cryst) (Klor-Con M) rivaroxaban 20 mg tablet (Xarelto) 20 mg PO QPM 02/15/24 02/22/24 History propranolol 40 mg tablet 40 mg PO BID Blood pressure 02/22/24 Unknown History Allergy/AdvReac Type Severity Reaction Status Date / Time ciprofloxacin (From Cipro) Allergy Intermediate NEEDS Verified 02/22/24 20:23 FOLLOW-UP duloxetine Allergy Intermediate NEEDS Verified 02/22/24 20:23 FOLLOW-UP ibuprofen Allergy Intermediate NEEDS Verified 02/22/24 20:23 FOLLOW-UP meloxicam Allergy Intermediate NEEDS Verified 02/22/24 20:23 FOLLOW-UP Penicillins Allergy Intermediate NEEDS Verified 02/22/24 20:23 FOLLOW-UP sulfamethoxazole (From Allergy Intermediate NEEDS Verified 02/22/24 20:23 ) FOLLOW-UP trimethoprim (From ) Allergy Intermediate NEEDS Verified 02/22/24 20:23 FOLLOW-UP Surgical History History of appendectomy History of cardiac radiofrequency ablation (RFA) S/P hernia repair Social History (Updated 02/22/24 @ 19:[address] Elsy Zafar DO) household members: family housing: house Smoking Status: Never smoker alcohol intake: never substance use type: does not use ROS Constitutional Constitutional: Reports weakness; Denies chills or fever(s) Eyes Eyes: Denies loss of vision Cardiovascular Cardiovascular: Reports chest pain; Denies dyspnea on exertion, edema, palpitations or syncope Respiratory/Chest Respiratory/Chest: Denies dyspnea on exertion Gastrointestinal Gastrointestinal: Reports anorexia, diarrhea, nausea and other Details: frequent bm from kayexalate given for high potassium ; Denies abdominal pain Genitourinary Genitourinary: Reports oliguria; Denies dysuria or flank pain Musculoskeletal Musculoskeletal: Reports abnormal gait, muscle weakness and tremors Integumentary Integumentary: Denies rash Neurologic Neurologic: Reports tremor(s) and weakness; Denies syncope Psychiatric Psychiatric: Denies confusion Hematologic/Lymphatic Hematologic/Lymphatic: Reports anemia Physical Exam Const alert, oriented x3 and no apparent distress General Appearance: frail Eyes EOMs intact bilaterally and no scleral icterus Neck supple Resp clear to auscultation bilaterally Cardio regular rate GI non-tender and non-distended Auscultation: normoactive bowel sounds Palpation: soft no CVA tenderness Extremity no clubbing, cyanosis or edema Skin no wounds General Skin Exam: Negative for ecchymosis Neuro moves all extremities Psych cooperative Medical Records Data Attestation: I reviewed the patient's medical records Medical records narrative: renal US no hydronephrosis Lab / Micro Data Attestation: I reviewed the patient's lab results. Lab results narrative: MRI 02/20/24 showed 2 small acute infarcts are present in the central and posterior aspect of the left cerebellar lobe. A single small subcortical infarct is also seen in the posterior medial and inferior aspect of the left occipital lobe. 02/24/24 08:56 02/24/24 05:40 Labs: Laboratory Results - last 24 hr 02/22/24 16:59: WBC 8.3, RBC 3.22 L, Hgb 9.7 L, Hct 31.0 L, MCV 96.3, MCH 30.1, MCHC 31.3 L, RDW Std Deviation 56.4 H, RDW Coeff of Rohit 15.9 H, Plt Count 250, MPV 8.9, Immature Gran % (Auto) 0.600, Neut % (Auto) 71.8 H, Lymph % (Auto) 16.6 L, [place] % (Auto) 8.4, Eos % (Auto) 1.9, Baso % (Auto) 0.7, Absolute Neuts (auto) 6.0, Absolute Lymphs (auto) 1.38, Nucleated RBC % 0, PT 45.5 H, INR 4.7 H*, APTT 43.3 H, Sodium 139, Potassium 6.3 H*, Chloride 112 H, Carbon Dioxide 22.0, Anion Gap 5, BUN 66 H, Creatinine 3.29 H, Estim Creat Clear Calc 8.53, Est GFR (MDRD) Af Amer 17 L, Est GFR (MDRD) Non-Af 14 L, BUN/Creatinine Ratio 20.1 H, Glucose 94, Hemoglobin A1c 5.3, Calcium 8.8, Troponin I High Sens 33 02/22/24 19:30: Urine Color Yellow, Urine Clarity Clear, Urine pH 6.0, Ur Specific [place] 1.005, Urine Protein Negative, Urine Glucose (UA) Normal, Urine Ketones Negative, Urine Occult Blood 25 H, Urine Nitrite Negative, Urine Bilirubin Negative, Urine Urobilinogen Normal, Ur Leukocyte Esterase Negative, Urine RBC 0 SEEN, Urine WBC 0-5 SEEN, Ur Squamous Epith Cells 0 SEEN, Urine Bacteria 0 SEEN, Urine Mucus 0 SEEN, Ur Random Sodium 96, Urine Creatinine 20.00, Urine Urea Nitrogen 224 02/23/24 06:04: WBC 6.4, RBC 3.35 L, Hgb 9.9 L, Hct 32.4 L, MCV 96.7, MCH 29.6, MCHC 30.6 L, RDW Std Deviation 56.1 H, RDW Coeff of Rohit 15.7 H, Plt Count 222, MPV 8.9, Immature Gran % (Auto) 0.800, Neut % (Auto) 70.7 H, Lymph % (Auto) 15.9 L, [place] % (Auto) 8.1, Eos % (Auto) 3.9, Baso % (Auto) 0.6, Absolute Neuts (auto) 4.5, Absolute Lymphs (auto) 1.02, Nucleated RBC % 0, Sodium 138, Potassium 6.2 H*, Chloride 112 H, Carbon Dioxide 20.0 L, Anion Gap 6, BUN 60 H, Creatinine 2.82 H, Estim Creat Clear Calc 9.45, Est GFR (MDRD) Af Amer 20 L, Est GFR (MDRD) Non-Af 17 L, BUN/Creatinine Ratio 21.3 H, Glucose 70 L, Calcium 9.6, Phosphorus 5.9 H, Magnesium 2.4, Total Bilirubin 0.50, AST 52 H, ALT 93 H, Alkaline Phosphatase 69, Total Protein 6.0 L, Albumin 2.8 L, Globulin 3.2, Albumin/Globulin Ratio 0.9, Triglycerides 75, Cholesterol 114, LDL Cholesterol 53, VLDL Cholesterol 15, HDL Cholesterol 46, TSH 3.370 02/23/24 11:40: Sodium 137, Potassium 4.4, Chloride 110 H, Carbon Dioxide 19.0 L , Anion Gap 8, BUN 55 H, Creatinine 2.66 H, Estim Creat Clear Calc 10.02, Est GFR (MDRD) Af Amer 22 L, Est GFR (MDRD) Non-Af 18 L, BUN/Creatinine Ratio 20.7 H , Glucose 112 H, Calcium 9.7 Micro: Microbiology 02/23/24 10:00 Stool Clostridioides difficile (PCR) - Final Imaging Radiology Impression Brain CT 02/22/24 16:20 IMPRESSION: Atrophy and moderate periventricular white matter ischemic changes. 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 No evidence for hemorrhagic transformation or definitive evidence for new infarct. MRI would be useful for more definitive evaluation in this regard if indicated Electronically Signed: Cj Rodney MD at 17:35 EST , ADDENDUM: 02/22/24 [id number] IMPRESSION: Atrophy and moderate periventricular white matter ischemic changes. 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 No evidence for hemorrhagic transformation or definitive evidence for new infarct. MRI would be useful for more definitive evaluation in this regard if indicated N.B. : The above Results were Read Back by Cj Rodney MD to Johnson Retana MD, and understanding confirmed on 02/22/2024 17:51:30 (ET). Electronically Signed: Cj Rodney MD at 17:35 EST , Head/Neck CTA 02/22/24 16:20 IMPRESSION: Atherosclerotic disease without evidence for hemodynamically significant stenosis or major vessel occlusion Electronically Signed: Cj Rodney MD at 17:47 EST , ADDENDUM: 02/22/24 1757 IMPRESSION: Atherosclerotic disease without evidence for hemodynamically significant stenosis or major vessel occlusion N.B. : The above Results were Read Back by Cj Rodney MD to Johnson Retana MD, and understanding confirmed on 02/22/2024 17:50:52 (ET). Electronically Signed: Cj Rodney MD at 17:47 EST , Chest X-Ray 02/22/24 17:15 IMPRESSION: No acute cardiopulmonary pathology. Electronically Signed: Cj Rodney MD at 18:37 EST , Renal Ultrasound 02/22/24 18:32 IMPRESSION: Chronic renal parenchymal disease and 2 small cyst in left kidney Incidental finding of gallstones without evidence for acute cholecystitis. Electronically Signed: Cj Rodney MD at 19:47 EST ,
[2024-02-23] MEDS: Ensure Plus High Protein 120 ML LIQUID PO (13:29)
[2024-02-23] MEDS: 0.9% Saline Lock 10 ML Syringe IV (14:42)
[2024-02-23] MEDS: Ondansetron 4 MG/2 ML Vial IV (14:43)
[2024-02-23] MEDS: Acetaminophen 325 MG Tablet 650 MG PO (14:44)
--- NOTE | 2024-02-23 14:44 | CHAPLAIN ---
Type of Pastoral Visit _x__ Initial Visit ___ Follow-up Visit ___ On-call Visit ___ General Patient Visit ___ Spiritual Assessment ___ Family Conference ___ Bereavement ___ Rapid Response ___ Code Blue ___ Other (describe below) Pastoral Care Referral From _x__ Patient ___ Family ___ Nurse ___ Physician ___ Hop Separator ___ Academic Coach ___ Other (describe below) Sacrament/Intervention _x__ Active listening ___ Anointing ___ Anglican ___ Bereavement ___ Communion ___ Karlene exploration ___ _x__ Life review _x__ Prayer ___ Reconciliation ___ Sacrament of Sick _x__ Supportive presence ___ Wedding ___ Other (describe below) Pastoral Comments initially the patient gives a full report on her health and new developments; however much of the time is given for the patient to give life review including the experience of her ; this patient has been seen before and repeats much of her story of grief's impace on her life; pt is a person of karlene and welcomes prayer and presence for support
--- NOTE | 2024-02-23 15:03 | CASEMGMT ---
Discharge Planning A list of?SNF providers including quality and resource use data and consistent with the patient's preferred geographic region, medical needs, and insurance network was created in [employer].? This list was provided to the RN JOHANNY. Bernadine Hall, Discharge Planning Asst.
[2024-02-23] MEDS: Loperamide 2 MG Capsule 4 MG PO (15:24)
--- NOTE | 2024-02-23 15:33 | CASEMGMT ---
AMNA ORLANDO chart reveiw: Patient was admitted 01/26-01/30/24 for fluid overload, acute exacerbation of CHF. See AMNA ORLANDO assessment from 01/28/24. Patient was discharged to home with [facility], family support, and follow-up plans in place. Patient returned to [facility] ED on 02/22/24 after being told by PCP to go to ED after outpatient MRI was positive for stroke. Patient was admitted for stroke, JOANNA, and hyperkalemia. RN JOHANNY in to discuss readmission and needs at discharge, daughter at bedside. Patient states she was taking medications as prescribed and had been to PCP on 02/15/24. Patient states [facility] had been working with patient regularly. AMNA ORLANDO reviewed progress with therapy, patient ambulated 30ft min assistx1. Patient lives with daughter, but daughter works during the day. AMNA ORLANDO discuss possible SNF at discharge. Patient and daughter agreeable to SNF at discharge. AMNA ORLANDO provided SNF list to patient and daugther, prefer TCU. AMNA ORLANDO asked patient and daughter to review list and provide additional preferences should TCU not be available. Patient and daughter voiced understanding. Patient and daughter had no further questions or concerns. AMNA ORLANDO updated SW regarding request for TCU. CM will continue to follow this patient and plan for a safe discharge.
--- NOTE | 2024-02-23 15:57 | CASEMGMT ---
Per RN CM patient is interested in going to [facility] TCU for short term rehab. SW made a referral to TCU. Ninfa will review patient and also check on bed availability tomorrow. Noa GUERRA
--- NOTE | 2024-02-23 17:18 | CON.PCM.NE_ITS ---
Assessment and Plan: Stroke Assessment/Plan JONNA GIRON is a 88 F with a history of HTN/HLD, afib on Xarelto, HFpEF with recent admission for exacerbation. She is admitted for small cerebellar and L occipital infarcts found incidentally on outpatient MRI for head tremor. She does have AFib and recently restarted xarelto and was taking it at the time of the infarcts. Stroke etiology is cardioembolic despite appropriate xarelto use (annual stroke risk is 0.5-1% despite appropriate DOAC use). Agree with switching to eliquis 2.5mg bid due to impaired renal function. I also agree with aspirin 81mg daily for possible symptomatic right vertebral artery intracranial stenosis. Continue atorvastatin 40mg daily. Recommend repeat TTE to screen for cardiac source of embolus given recent admission for HF exacerbation but no TTE performed at that time - new NH or reduced HF could increase risk for stroke. Will follow up after TTE obtained. She also has chronic head tremor; will defer to outpatient neurologist for ongoing workup and treatment of this. HPI Consult Data Date of Consult: 02/23/24 HPI Narrative HPI Narrative: JONNA GIORN, is a 88 F w/ HTN/HLD, afib on Xarelto, prior recent admission for pericardial effusion. Obtained outpatient MRI 02/20/24 for L weakness and new head bobbing since November. MRI w/ 2 small acute cerebellar infarcts and small subcortical infarct in L occipital lobe. On admission noted to have JOANNA and so Xarelto switched to Eliquis 2.5mg bid, also started on aspirin. 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 [facility] Medical History Bradycardia, sinus Hyperlipidemia Aortic valve disease Cardiac arrhythmia Fibromyalgia CKD (chronic kidney disease) stage 3, GFR 30-59 ml/min Rheumatoid arthritis Osteoporosis Afib Essential (primary) hypertension Shoulder pain with history of repair of rotator cuff Sjogren syndrome Home Medications ?Medication ?Instructions ?Recorded ?Last Taken ?Type atorvastatin 40 mg tablet 40 mg PO DAILY 09/07/23 02/21/24 History cholecalciferol (vitamin D3) 125 125 mcg PO QODAY 09/07/23 02/22/24 History mcg (5,000 unit) capsule ferrous sulfate 325 mg (65 mg 325 mg PO DAILY 09/07/23 02/21/24 History iron) tablet gabapentin 300 mg capsule 300 mg PO BID 09/07/23 02/22/24 History lisinopril 40 mg tablet 40 mg PO DAILY 09/07/23 02/22/24 History mecobalamin (vitamin B12) 1,000 1,000 mcg PO QMWF 09/07/23 02/22/24 History mcg chewable tablet hydroxychloroquine 200 mg tablet 200 mg PO DAILY Immunosupressive 01/27/24 Unknown History furosemide 40 mg tablet 40 mg PO DAILY #30 tabs 01/30/24 02/22/24 Rx potassium chloride 20 mEq 20 meq PO DAILY #30 tabs 01/30/24 02/22/24 Rx tablet,extended release(part/cryst) (Klor-Con M) rivaroxaban 20 mg tablet (Xarelto) 20 mg PO QPM 02/15/24 02/22/24 History propranolol 40 mg tablet 40 mg PO BID Blood pressure 02/22/24 Unknown History Allergy/AdvReac Type Severity Reaction Status Date / Time ciprofloxacin (From Cipro) Allergy Intermediate NEEDS Verified 02/22/24 20:23 FOLLOW-UP duloxetine Allergy Intermediate NEEDS Verified 02/22/24 20:23 FOLLOW-UP ibuprofen Allergy Intermediate NEEDS Verified 02/22/24 20:23 FOLLOW-UP meloxicam Allergy Intermediate NEEDS Verified 02/22/24 20:23 FOLLOW-UP Penicillins Allergy Intermediate NEEDS Verified 02/22/24 20:23 FOLLOW-UP sulfamethoxazole (From Allergy Intermediate NEEDS Verified 02/22/24 20:23 Septra) FOLLOW-UP trimethoprim (From Septra) Allergy Intermediate NEEDS Verified 02/22/24 20:23 FOLLOW-UP Surgical History History of appendectomy History of cardiac radiofrequency ablation (RFA) S/P hernia repair Social History (Updated 02/22/24 @ 19:[address] Elsy Zafar DO) household members: family housing: house Smoking Status: Never smoker alcohol intake: never substance use type: does not use Vital Signs Vital Signs Vital Signs: 02/22/24 17:45 02/22/24 18:00 02/22/24 19:27 Temperature 98.0 F Temperature Source Pulse Rate 58 L 59 L Pulse Strength Respiratory Rate 15 16 Respiratory Effort Respiratory Depth Respiratory Pattern Blood Pressure 141/38 H 128/52 H 128/63 H Blood Pressure Mean 72 77 84 Blood Pressure Source Blood Pressure Position Blood Pressure Location Pulse Ox 98 97 Oxygen Delivery Method Room Air 02/22/24 20:00 02/22/24 20:36 02/22/24 22:00 Temperature 97.5 F L Temperature Source Oral Pulse Rate 60 Pulse Strength Normal (2+) Respiratory Rate 16 Respiratory Effort Normal Non-Labored Respiratory Depth Normal Respiratory Pattern Normal Blood Pressure 194/61 H Blood Pressure Mean 105 Blood Pressure Source Monitor Blood Pressure Position Semi-Fowlers Blood Pressure Location Left Arm Pulse Ox 100 Oxygen Delivery Method Room Air Room Air 02/23/24 00:30 02/23/24 00:55 02/23/24 04:00 Temperature 97.8 F Temperature Source Oral Pulse Rate 50 L Pulse Strength Respiratory Rate 16 Respiratory Effort Normal Non-Labored Respiratory Depth Normal Respiratory Pattern Normal Blood Pressure 133/52 H Blood Pressure Mean 79 Blood Pressure Source Monitor Blood Pressure Position Semi-Fowlers Blood Pressure Location Left Arm Pulse Ox 100 98 Oxygen Delivery Method Room Air Room Air Room Air 02/23/24 04:25 02/23/24 08:15 02/23/24 08:17 Temperature 96.9 F L Temperature Source Oral Pulse Rate 50 L Pulse Strength Normal (2+) Respiratory Rate 16 Respiratory Effort Normal Non-Labored Respiratory Depth Normal Respiratory Pattern Normal Blood Pressure 121/73 H Blood Pressure Mean 89 Blood Pressure Source Monitor Blood Pressure Position Semi-Fowlers Blood Pressure Location Left Arm Pulse Ox 100 Oxygen Delivery Method Room Air Room Air 02/23/24 08:30 02/23/24 10:02 02/23/24 12:30 Temperature 97.3 F L 97.4 F L Temperature Source Oral Oral Pulse Rate 45 L 52 L Pulse Strength Respiratory Rate 18 18 Respiratory Effort Respiratory Depth Respiratory Pattern Blood Pressure 126/62 H 139/98 H Blood Pressure Mean 83 111 Blood Pressure Source Monitor Monitor Blood Pressure Position Semi-Fowlers Sitting Blood Pressure Location Left Arm Left Arm Pulse Ox 98 97 100 Oxygen Delivery Method Room Air Room Air Room Air 02/23/24 14:00 Temperature Temperature Source Pulse Rate Pulse Strength Respiratory Rate Respiratory Effort Normal Non-Labored Respiratory Depth Normal Respiratory Pattern Normal Blood Pressure Blood Pressure Mean Blood Pressure Source Blood Pressure Position Blood Pressure Location Pulse Ox Oxygen Delivery Method Room Air Weight Weight: 41.8 kg Body Mass Index (BMI) 20.6 EEG Results Procedure Details EEG Procedure Details: JONNA GIRON is a 88 year old F with a past medical history of , who presents for evaluation of Electroencephalogram on DATE at TIME NIHSS NIHSS Nursing Documentation NIHSS Nursing Documentation: NIHSS: Ischemic Stroke/TIA Start: 02/22/24 19:56 Text: For PCU Patients: NIH and Neuro Check every 4 Status: Complete hours, PRN and with change in RN caregiver. Freq: [id number] Protocol: Activity Type Activity Date Activity User E-sign Co-sign Detail Recorded Client Recorded Date Recorded By Document 02/23/24 12:30 AMG [id number] 02/23/24 13:00 AMG 02/23/24 12:30 NIH Stroke Scale [NIHSS] A score of 0 is normal or asymptomatic . Total possible score is 42. Inpatient: RN or Physician to activate a stroke alert for onset of new stroke symptoms or with NIHSS increase >/= 3 points. Following change in neurological status, NIHSS will be performed per physician order or more frequently PRN. -1a. Level of Consciousness Alert; keenly responsive -1b. LOC Questions Answers BOTH questions correctly. -1c. LOC Commands Performs both tasks correctly . -2. Best Gaze Normal -3. Visual No visual loss -4. Facial Palsy Normal symmetrical movements -5a. Left Arm No drift; arm holds 90 (or 45 ) degrees for full 10 seconds -5b. Right Arm No drift; arm holds 90 (or 45 ) degrees for full 10 seconds -6a. Left Leg No drift; leg holds 30-degree position for full 5 seconds -6b. Right Leg No drift; leg holds 30-degree position for full 5 seconds -7. Limb Ataxia Absent -8. Sensory Mild-to- moderate sensory loss; -9. Best Language No aphasia; normal -10. Dysarthria Normal -11. Extinction and Inattention No abnormality -Total 1 Query Text:A score of 0 is normal or asymptomatic. Total possible score is 42 . ED: Notify Physician for NIHSS increase by > / = 3 points. Inpatient: RN or Physician to activate a stroke alert for NIHSS increase of > / = 3 points. Coma Scale [Assess] -Eye Opening Spontaneous -Motor Obeys Commands -Verbal Oriented [Total] -Coma Scale Total 15 Physical Exam Narrative head tremor, slowed finger tapping on the left. Mild sensation change on left. NIHSS 1 (sensation). Lab / Micro Data 02/23/24 06:04 02/23/24 11:40 Labs: Laboratory Results - last 24 hr 02/22/24 16:59: WBC 8.3, RBC 3.22 L, Hgb 9.7 L, Hct 31.0 L, MCV 96.3, MCH 30.1, MCHC 31.3 L, RDW Std Deviation 56.4 H, RDW Coeff of Rohit 15.9 H, Plt Count 250, MPV 8.9, Immature Gran % (Auto) 0.600, Neut % (Auto) 71.8 H, Lymph % (Auto) 16.6 L, Cooke % (Auto) 8.4, Eos % (Auto) 1.9, Baso % (Auto) 0.7, Absolute Neuts (auto) 6.0, Absolute Lymphs (auto) 1.38, Nucleated RBC % 0, PT 45.5 H, INR 4.7 H*, APTT 43.3 H, Sodium 139, Potassium 6.3 H*, Chloride 112 H, Carbon Dioxide 22.0, Anion Gap 5, BUN 66 H, Creatinine 3.29 H, Estim Creat Clear Calc 8.53, Est GFR (MDRD) Af Amer 17 L, Est GFR (MDRD) Non-Af 14 L, BUN/Creatinine Ratio 20.1 H, Glucose 94, Hemoglobin A1c 5.3, Calcium 8.8, Troponin I High Sens 33 02/22/24 19:30: Urine Color Yellow, Urine Clarity Clear, Urine pH 6.0, Ur Specific [place] 1.005, Urine Protein Negative, Urine Glucose (UA) Normal, Urine Ketones Negative, Urine Occult Blood 25 H, Urine Nitrite Negative, Urine Bilirubin Negative, Urine Urobilinogen Normal, Ur Leukocyte Esterase Negative, Urine RBC 0 SEEN, Urine WBC 0-5 SEEN, Ur Squamous Epith Cells 0 SEEN, Urine Bacteria 0 SEEN, Urine Mucus 0 SEEN, Ur Random Sodium 96, Urine Creatinine 20.00, Urine Urea Nitrogen 224 02/23/24 06:04: WBC 6.4, RBC 3.35 L, Hgb 9.9 L, Hct 32.4 L, MCV 96.7, MCH 29.6, MCHC 30.6 L, RDW Std Deviation 56.1 H, RDW Coeff of Rohit 15.7 H, Plt Count 222, MPV 8.9, Immature Gran % (Auto) 0.800, Neut % (Auto) 70.7 H, Lymph % (Auto) 15.9 L, [place] % (Auto) 8.1, Eos % (Auto) 3.9, Baso % (Auto) 0.6, Absolute Neuts (auto) 4.5, Absolute Lymphs (auto) 1.02, Nucleated RBC % 0, Sodium 138, P otassium 6.2 H*, Chloride 112 H, Carbon Dioxide 20.0 L, Anion Gap 6, BUN 60 H, C reatinine 2.82 H, Estim Creat Clear Calc 9.45, Est GFR (MDRD) Af Amer 20 L, Est GFR (MDRD) Non-Af 17 L, BUN/Creatinine Ratio 21.3 H, Glucose 70 L, Calcium 9.6, Phosphorus 5.9 H, Magnesium 2.4, Total Bilirubin 0.50, AST 52 H, ALT 93 H, Alkaline Phosphatase 69, Total Protein 6.0 L, Albumin 2.8 L, Globulin 3.2, Albumin/Globulin Ratio 0.9, Triglycerides 75, Cholesterol 114, LDL Cholesterol 53, VLDL Cholesterol 15, HDL Cholesterol 46, TSH 3.370 02/23/24 11:40: Sodium 137, Potassium 4.4, Chloride 110 H, Carbon Dioxide 19.0 L , Anion Gap 8, BUN 55 H, Creatinine 2.66 H, Estim Creat Clear Calc 10.02, Est GFR (MDRD) Af Amer 22 L, Est GFR (MDRD) Non-Af 18 L, BUN/Creatinine Ratio 20.7 H , Glucose 112 H, Calcium 9.7 Micro: Microbiology 02/23/24 10:00 Stool Stool Lactoferrin - Final 02/23/24 10:00 Stool Enteric Bacteriology - Final 02/23/24 10:00 Stool Clostridioides difficile (PCR) - Final Imaging Radiology Impression Brain CT 02/22/24 16:20 IMPRESSION: Atrophy and moderate periventricular white matter ischemic changes. 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 No evidence for hemorrhagic transformation or definitive evidence for new infarct. MRI would be useful for more definitive evaluation in this regard if indicated Electronically Signed: Cj Rodney MD at 17:35 EST , ADDENDUM: 02/22/24 1758 IMPRESSION: Atrophy and moderate periventricular white matter ischemic changes. 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 No evidence for hemorrhagic transformation or definitive evidence for new infarct. MRI would be useful for more definitive evaluation in this regard if indicated N.B. : The above Results were Read Back by Cj Rodney MD to Johnson Retana MD, and understanding confirmed on 02/22/2024 17:51:30 (ET). Electronically Signed: Cj Rodney MD at 17:35 EST , Head/Neck CTA 02/22/24 16:20 IMPRESSION: Atherosclerotic disease without evidence for hemodynamically significant stenosis or major vessel occlusion Electronically Signed: Cj Rodney MD at 17:47 EST Reading Location ID and State: [facility] / [place] Tel [phone], Service support , ADDENDUM: 02/22/24 1757 IMPRESSION: Atherosclerotic disease without evidence for hemodynamically significant stenosis or major vessel occlusion N.B. : The above Results were Read Back by Cj Rodney MD to Johnson Retana MD, and understanding confirmed on 02/22/2024 17:50:52 (ET). Electronically Signed: Cj Rodney MD at 17:47 EST , Chest X-Ray 02/22/24 17:15 IMPRESSION: No acute cardiopulmonary pathology. Electronically Signed: Cj Rodney MD at 18:37 EST , Renal Ultrasound 02/22/24 18:32 IMPRESSION: Chronic renal parenchymal disease and 2 small cyst in left kidney Incidental finding of gallstones without evidence for acute cholecystitis. Electronically Signed: Cj Rodney MD at 19:47 EST Reading Location ID and State: [facility] / [place] Tel , Service support , Active Medications Active Medications Active Medications: Current Medications Generic Name Dose Route Start Last Admin Trade Name Freq PRN Reason Stop Dose Admin Acetaminophen 650 mg 02/22/24 19:56 02/23/24 14:44 Acetaminophen 325 Mg Tablet PO 650 mg Q4H PRN PRN Administration Pain 1-10 Or Fever>99.6 Aspirin 81 mg 02/23/24 08:00 02/23/24 08:43 Aspirin 81 Mg Tab.Chew PO 81 mg BREAKFAST SAY Administration Atorvastatin Calcium 40 mg 02/23/24 10:00 02/23/24 08:43 Atorvastatin Calcium 40 Mg Tablet PO 40 mg DAILY SAY Administration Cholecalciferol 125 mcg 02/24/24 10:00 Cholecalciferol (Vit D3) 125 Mcg Capsule (5,000 Units) PO QODAY SAY Cyanocobalamin 1,000 mcg 02/24/24 08:00 Cyanocobalamin 500 Mcg Tablet PO [id number] SAY Ferrous Sulfate 325 mg 02/23/24 12:00 02/23/24 08:43 Ferrous Sulfate 325 Mg Tablet PO 325 mg LUNCH SAY Administration Hydralazine HCl 5 mg 02/22/24 19:56 Hydralazine 20 Mg/Ml Vial IV 02/23/24 19:56 Q30M PRN maintain BP parameters with HR <60 Hydroxychloroquine Sulfate 200 mg 02/23/24 08:00 02/23/24 08:43 Hydroxychloroquine 200 Mg Tablet PO 200 mg BREAKFAST SAY Administration Calcium Gluconate 3 gm/ N/A 30 mls @ 600 mls/hr 02/22/24 18:11 02/22/24 18:39 IV Infused .Q3M PRN Infusion Continued EKG changes Sodium Bicarbonate 150 meq/ 1,150 mls @ 125 mls/hr 02/23/24 08:30 02/23/24 10:18 Dextrose IV 02/23/24 17:41 125 mls/hr .Q9H12M SAY Administration Labetalol HCl 10 - 20 mg 02/22/24 19:56 Labetalol 20mg/4ml Syringe IV 02/23/24 19:56 Q10M PRN PRN maintain BP parameters with HR >/=60 Loperamide HCl 4 mg 02/23/24 15:08 02/23/24 15:24 Loperamide 2 Mg Capsule PO 4 mg Q4H PRN PRN Administration DIARRHEA Ondansetron HCl 4 mg 02/22/24 19:56 02/23/24 14:43 Ondansetron 4 Mg/2 Ml Vial IV 4 mg Q8H PRN PRN Administration NAUSEA/VOMITING Senna/Docusate Sodium 2 tablet 02/23/24 10:00 02/23/24 08:43 Senna/Docusate Sodium 1 Tablet PO Not Given BID SAY Sodium Chloride 10 - 40 ml 02/22/24 20:20 02/23/24 14:42 0.9% Saline Lock 10 Ml Syringe IV 10 ml UD PRN Administration SALINE FLUSH
[2024-02-24 02:08] VITALS: BP 108/50; PULSE 54; RESP 16; TEMP 36.5; O2SAT 97
[2024-02-24] MEDS: Acetaminophen 325 MG Tablet 650 MG PO ×3 (02:10→21:25)
[2024-02-24 05:17] VITALS: BMI 22.6
[2024-02-24 06:09] LABS: Hematocrit 25.6 % (37-47); Hemoglobin 8.4 g/dL (12.0-15.0); Mean Corp Hgb Conc 32.8 g/dL (32-36); Mean Corpuscular Hgb 30.7 pg (27.0-32.0); Mean Corpuscular Volume 93.4 fL (81-99); Mean Platelet Vol. 8.9 fl (6.2-12.0); Platelet Count 195 K/mm3 (150-450); RBC Distribution Width SD 55.1 fl (35.1-43.9); Red Blood Count 2.74 M/mm3 (4.2-5.4); White Blood Count 7.7 K/mm3 (4.4-11.0)
[2024-02-24 06:36] LABS: Albumin, Serum 2.4 g/dL (3.2-5.0); BUN 51 mg/dL (7-18); BUN/Creat Ratio 22.4 RATIO (10-20); Calcium,Total 8.2 mg/dL (8.5-10.1); Chloride 103 mmol/L (98-107); Creatinine, Serum 2.28 mg/dL (0.55-1.02); EST Glomerular Filtration Rate 22 mL/min (>60); Est Glom Filt Rate - Afr Amer 26 mL/min (>60); Estimated Creatinine Clearance 12.72 ml/min; Glucose 72 mg/dL (74-106); Phosphorus 4.5 mg/dL (2.5-4.9); Potassium 3.7 mmol/L (3.5-5.1); Sodium Level 138 mmol/L (136-145)
[2024-02-24 07:35] VITALS: O2SAT 96
[2024-02-24 08:15] VITALS: BP 112/69; PULSE 48; RESP 18; TEMP 36.5; O2SAT 97
[2024-02-24] MEDS: Cholecalciferol (Vit D3) 125 MCG CAPSULE (5,000 UNITS) PO (08:39)
[2024-02-24] MEDS: Aspirin 81 MG TAB.CHEW PO (08:39)
[2024-02-24] MEDS: Hydroxychloroquine 200 MG Tablet PO (08:39)
[2024-02-24] MEDS: Atorvastatin Calcium 40 MG Tablet PO (08:39)
[2024-02-24] MEDS: Cyanocobalamin 500 MCG Tablet 1000 MCG PO (08:39)
[2024-02-24] MEDS: Ferrous Sulfate 325 MG Tablet PO (08:39)
[2024-02-24 08:49] LABS: International Normalized Ratio 1.3; Prothrombin Time (Protime)PT. 16.2 SECONDS (11.7-14.9)
[2024-02-24 09:37] LABS: Absolute Lymphocyte Count 0.84 X10^3/uL (0.83-4.51); Absolute Neutrophil Count 5.8 X10^3/uL (2.0-7.7); Basophil# 0.04 X10^3/uL; Basophil% 0.5 % (0-1); Eosinophil# 0.17 X10^3/uL; Eosinophils% 2.3 % (0-5); Hematocrit 28.4 % (37-47); Lymphocyte # 0.84 X10^3/ul (0.83-4.51); Lymphocyte % 11.4 % (19-41); Mean Corp Hgb Conc 31.7 g/dL (32-36); Mean Corpuscular Hgb 29.9 pg (27.0-32.0); Mean Corpuscular Volume 94.4 fL (81-99); Mean Platelet Vol. 8.9 fl (6.2-12.0); Monocyte# 0.45 X10^3/uL; Monocyte% 6.1 % (0-10); NRBC Flagged by Analyzer 0 % (0-5); Neutrophil # 5.81 X10^3/uL (2.7-7.7); Neutrophil % 79.3 % (47-70); Platelet Count 206 K/mm3 (150-450); RBC Distribution Width CV 15.9 % (11.6-14.6); RBC Distribution Width SD 55.8 fl (35.1-43.9); Red Blood Count 3.01 M/mm3 (4.2-5.4); White Blood Count 7.3 K/mm3 (4.4-11.0)
[2024-02-24] MEDS: APIXABAN 2.5 MG TABLET (WCH) PO ×2 (12:51→21:26)
--- NOTE | 2024-02-24 12:53 | CASEMGMT ---
SW completed a PHQ9 as patient had a Stroke. Patient scored a 3 which indicates minimal depression. Patient denied any need for counseling resources. SW also updated patient that [facility] and once her insurance approves her she will move to TCU. Patient asked if ANDREA could notify her daughter. Plan: d/c to [facility] pending insurance approval. Noa Jennings LICENSED JOURNEYMAN ELECTRICIANBeatrice GUERRA
--- NOTE | 2024-02-24 14:18 | PN.HOSP_ITS ---
Reason for Visit Reason for Visit: Diagnoses Hyperkalemia (02/22/24) Cerebral infarction, unspecified (02/22/24) Acute kidney failure, unspecified (02/22/24) Tremor, unspecified (02/22/24) Abnormal coagulation profile (02/22/24) Objective Data Objective Data Vital Signs: Vital Signs Temp Pulse Resp BP Pulse Ox O2 Del Method 97.7 F L 48 L 18 112/69 97 Room Air 02/24/24 08:00 02/24/24 08:00 02/24/24 08:00 02/24/24 08:00 02/24/24 08:00 02/24/24 08:05 Oxygen Delivery Method Room Air Weight: 100 lb 15.547 oz Body Mass Index (BMI) 22.6 Intake & Output: Intake and Output for Last 24 Hours 02/22/24 02/23/24 02/24/24 23:59 23:59 23:59 Intake Total 280 / 280 2988.75 / 2988.75 250 / 250 Output Total 750 / 750 600 / 600 Balance 280 / 280 2238.75 / 2238.75 -350 / -350 Lab / Micro Data 02/24/24 08:56 02/24/24 05:40 Labs: Laboratory Results - last 24 hr 02/24/24 05:40: WBC 7.7, RBC 2.74 L, Hgb 8.4 L, Hct 25.6 L, MCV 93.4, MCH 30.7, MCHC 32.8 D, RDW Std Deviation 55.1 H, RDW Coeff of Rohit 16.0 H, Plt Count 195, MPV 8.9, PT 16.2 H, INR 1.3, Sodium 138, Potassium 3.7, Chloride 103, Carbon Dioxide 29.0, BUN 51 H, Creatinine 2.28 H, Estim Creat Clear Calc 12.72, Est GFR (MDRD) Af Amer 26 L, Est GFR (MDRD) Non-Af 22 L, BUN/Creatinine Ratio 22.4 H, G lucose 72 L, Calcium 8.2 L, Phosphorus 4.5, Albumin 2.4 L 02/24/24 08:56: WBC 7.3, RBC 3.01 L, Hgb 9.0 L, Hct 28.4 L, MCV 94.4, MCH 29.9, MCHC 31.7 L, RDW Std Deviation 55.8 H, RDW Coeff of Rohit 15.9 H, Plt Count 206, MPV 8.9, Immature Gran % (Auto) 0.400, Neut % (Auto) 79.3 H, Lymph % (Auto) 11.4 L, [place] % (Auto) 6.1, Eos % (Auto) 2.3, Baso % (Auto) 0.5, Absolute Neuts (auto) 5.8, Absolute Lymphs (auto) 0.84, Nucleated RBC % 0 Micro: Microbiology 02/23/24 10:00 Urine, Clean Catch Urine Culture - Preliminary Alpha hemolytic organism Presumptive E. coli 02/23/24 10:00 Stool Stool Lactoferrin - Final 02/23/24 10:00 Stool Enteric Bacteriology - Final 02/23/24 10:00 Stool Clostridioides difficile (PCR) - Final Physical Exam Narrative Seen and examined Patient is stated her symptoms of shaking and tremors are better. Discussed about the INR, blood thinner and diagnosis with the patient. Symptoms started since November with tremors and shaking of head, whole body including head, postural instability, poor equilibrium with near fall situations. She said she had 3 times leg collapse since November. She also had loose bowel movement about 3-4 times per day, last 1 was just before yesterday at noon. Complain of mild burning micturition increased frequency for last couple days. No fever. Physical exam General: Alert, Oriented x3, Cooperative HEENT: Nystagmus resolved. Mild strabismus of left eye, lateral rectus. Atraumatic, PERRLA, EOMI, Normocephalic Oral: Oral mucosa dry. No Gingival or Mucosal Lesions/ Ulcerations Neck: Supple, No JVD, Negative Carotid Bruits Chest wall/Lungs: Air entry diminished in bilateral lung bases. No crepitation/rhonchi Cardiovascular: Sinus bradycardia, Normal S1, Normal S2, systolic murmur Abdomen: Bowel Sounds hyper, Soft, Non Tender, Non-Distended : Positive dysuria. No renal angle tenderness. No suprapubic tenderness. Extremities: No edema, Capillary Refill Less than 3 Seconds Skin: No rashes, No breakdown Musculoskeletal: Muscle strength 4/5 at knees and hip joints. no Tenderness to Palpation of Joints or Extremities Neurological: Postural and gait instability. Tremors of head bobbing, flexion extension and horizontal. Hands tremor. Cranial nerves II-XII grossly intact, DTR 2+/4. Psych/Mental Status: Flat affect Assessment & Plan Assessment/Plan (1) Elevated INR: (2) JOANNA (acute kidney injury): (3) Hyperkalemia: (4) Tremor: (5) CVA (cerebral vascular accident): PLAN: Plan 88-year-old female was sent to ED for abnormal MRI which was done on 02/19. She also had weakness of both upper arms. She had left leg weakness/was not able to range on Thursday but this has gotten better. 1. 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 Serum creatinine on presentation was 3.29, improved to 2.82. Diuretics, lisinopril and potassium supplement on hold. Urine sodium is 96, creatinine 20, BUN 224. Overall, urine electrolytes suggestive of diuretic effect. discontinue Xarelto. Patient has hyperkalemia, normal anion gap metabolic acidosis. Hyperkalemia cocktail ordered. Nephrology consult requested. Renal ultrasound shows chronic renal parenchymal disease. 2 small cysts in the left kidney. Incidental finding of gallstones without evidence of acute cholestatic 02/23: Urine culture shows contamination 2 organisms alphahemolytic organism and presumptive E. coli in nonpathologic range. No indication for antibiotic. Patient was seen by the sales support assistant. Creatinine improved to 2.66 with IV fluid. Possible hypertensive nephropathy/chronic interstitial nephritis. 2. Subacute left posterior circulation strokes -MRI from 02/20/2024 showed 2 small acute infarcts in the central and posterior aspect of the left cerebellar lobe and 1 in the left occipital lobe -The patient has had previous echocardiogram with negative bubble study so will not repeat at this time -CTA of the head and neck shows atherosclerotic disease without evidence of hemodynamically significant stenosis or major vessel occlusion and plaque is minimal to moderate in the carotid arteries. Patient INR is very high 4.7 although dosing of DOAC not directly related with INR but causes elevated INR and patient recovering from JOANNA therefore we will hold DOAC but later start low-dose Eliquis 2.5 mg twice daily Continue baby aspirin. PT, OT, speech therapy/swallow evaluation and management, nursing NIH stroke scale, BP and glucose monitoring and control as per stroke protocol. TSH normal. LDL 53. A1c 5.3% 1/15: Eliquis was held because of high INR. Repeat INR is 1.3. Eliquis 2.5 mg twice daily ordered. As mentioned above patient had recent bubble study and MRI therefore imaging workup is complete. Continue PT OT and speech therapy 3. Hyperkalemia: Serum potassium was 6.3. Due to JOANNA. As mentioned -No EKG changes consistent with hyperkalemia Treated with hyperkalemia cocktail encapsulate. Repeat potassium is normal 4.4. 02/23: Hyperkalemia resolved. 4. Paroxysmal A-fib: Sinus rhythm on presentation. Patient bradycardia heart rate in low 50s. Hold beta-alex and amiodarone. -Cardiology is monitoring for need of pacemaker as outpatient 5. Chronic HFpEF/pulmonary hypertension -Echocardiogram from 12/20/2023 shows an EF of 55% with a negative bubble study, mild to moderate eccentric mitral valve insufficiency and pulmonary systolic pressure of 60 mmHg read with diffuse aortic valve thickening -Diuretics on hold due to JOANNA 6. Diarrhea: The reason is unclear but stool collected. C. difficile PCR negative. Enteric pathogen panel and lactoferrin pending. Essential hypertension/hyperlipidemia -Hold Lasix, hold lisinopril -As needed medication available per stroke order set -Continue statin RA/Sjogren's syndrome -Continue home Plaquenil Chronic anemia -Normocytic and suspect related to chronic disease with history of Sjogren's and RA -Continue home iron supplementation -Hemoglobin is stable when compared to previous data DVT prophylaxis -Eliquis 2.5 mg p.o. twice daily CODE STATUS -DNR CCA with no intubation per discussion at the time of admission with daughter at the bedside Charges/Coding Visit Charges Inpatient E&M: 71586 Subs Hosp L2
[2024-02-24 14:25] VITALS: BP 102/65; PULSE 51; RESP 18; TEMP 36.5; O2SAT 100
[2024-02-24 15:00] VITALS: BMI 22.6
--- NOTE | 2024-02-24 15:49 | CASEMGMT ---
ANDREA called patient's daughter Ambreen and let her know [facility] can take patient pending her insurance approving. ANDREA explained this may be tomorrow or Thursday. Plan: d/c to [facility] pending insurance approval. Noa GUERRA
--- NOTE | 2024-02-24 19:46 | PCM.PN.REN ---
Subjective Subjective pt seen this morning. complains of nausea, dry heaves, chest pain, shortness of breath, joint aches. Renal fxn improved with creatinine 2.28, potassium 3.7. Still with head tremor. Objective Data Objective Data Vital Signs: Vital Signs Temp Pulse Resp BP Pulse Ox O2 Del Method 97.7 F L 51 L 18 102/65 100 Room Air 02/24/24 14:25 02/24/24 14:25 02/24/24 14:25 02/24/24 14:25 02/24/24 14:02/24/24 14:25 Oxygen Delivery Method Room Air Weight: 45.8 kg Body Mass Index (BMI) 22.6 Intake & Output: Intake and Output for Last 24 Hours 02/22/24 02/23/24 02/24/24 23:59 23:59 23:59 Intake Total 280 / 280 2988.75 / 2988.75 610 / 610 Output Total 750 / 750 600 / 600 Balance 280 / 280 2238.75 / 2238.75 Lab / Micro Data 02/24/24 08:56 02/24/24 05:40 Labs: Laboratory Results - last 24 hr 02/24/24 05:40: WBC 7.7, RBC 2.74 L, Hgb 8.4 L, Hct 25.6 L, MCV 93.4, MCH 30.7, MCHC 32.8 D, RDW Std Deviation 55.1 H, RDW Coeff of Rohit 16.0 H, Plt Count 195, MPV 8.9, PT 16.2 H, INR 1.3, Sodium 138, Potassium 3.7, Chloride 103, Carbon Dioxide 29.0, BUN 51 H, Creatinine 2.28 H, Estim Creat Clear Calc 12.72, Est GFR (MDRD) Af Amer 26 L, Est GFR (MDRD) Non-Af 22 L, BUN/Creatinine Ratio 22.4 H, Glucose 72 L, Calcium 8.2 L, Phosphorus 4.5, Albumin 2.4 L 02/24/24 08:56: WBC 7.3, RBC 3.01 L, Hgb 9.0 L, Hct 28.4 L, MCV 94.4, MCH 29.9, MCHC 31.7 L, RDW Std Deviation 55.8 H, RDW Coeff of Rohit 15.9 H, Plt Count 206, MPV 8.9, Immature Gran % (Auto) 0.400, Neut % (Auto) 79.3 H, Lymph % (Auto) 11.4 L, [place] % (Auto) 6.1, Eos % (Auto) 2.3, Baso % (Auto) 0.5, Absolute Neuts (auto) 5.8, Absolute Lymphs (auto) 0.84, Nucleated RBC % 0 Micro: Microbiology 02/23/24 10:00 Urine, Clean Catch Urine Culture - Preliminary Alpha hemolytic organism Presumptive E. coli 02/23/24 10:00 Stool Stool Lactoferrin - Final 02/23/24 10:00 Stool Enteric Bacteriology - Final 02/23/24 10:00 Stool Clostridioides difficile (PCR) - Final Physical Exam Const alert and oriented x3 General Appearance: frail Nutritional Appearance: thin HEENT HEENT Narrative: head tremor Resp clear to auscultation bilaterally Cardio regular rate GI non-tender and non-distended Auscultation: normoactive bowel sounds Palpation: soft Extremity no clubbing, cyanosis or edema Neuro Sensorium / Orientation: awake and alert Psych cooperative Assessment & Plan Assessment/Plan (1) JOANNA (acute kidney injury): PLAN: Creatinine 3.29 on admit 02/22/24 with recent contrast exposure, poor oral intake, on lisinopril. Suspect ATN Creatinine improved to 2.28 today. Continue to monitor (2) CKD stage 3b, 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: PLAN: due to hypertensive nephropathy. chronic interstital nephritis. Baseline creatinine 1.1 to 1.2. (3) Hyperkalemia: PLAN: due to potassium supplement with lisinopril in presence of JOANNA resolved with medical mgmt (4) Tremor: (5) Cerebral infarction involving left cerebellar artery: PLAN: neurology following (6) CVA (cerebral vascular accident): (7) Essential (primary) hypertension: PLAN: stable BP (8) Supratherapeutic INR: PLAN: INR 4.7 on xarelto at home for history of afib. INR 1.3 today
[2024-02-24 21:21] VITALS: BP 106/72; PULSE 55; RESP 18; TEMP 35.9; O2SAT 98
[2024-02-24] MEDS: Senna/Docusate Sodium 1 Tablet 2 TABLET PO (21:27)
[2024-02-25 03:20] VITALS: BP 115/53; PULSE 55; RESP 18; TEMP 36.1; O2SAT 97
[2024-02-25 05:32] LABS: Absolute Lymphocyte Count 0.99 X10^3/uL (0.83-4.51); Absolute Neutrophil Count 6.5 X10^3/uL (2.0-7.7); Basophil# 0.02 X10^3/uL; Basophil% 0.2 % (0-1); Eosinophil# 0.19 X10^3/uL; Eosinophils% 2.3 % (0-5); Hematocrit 25.8 % (37-47); Hemoglobin 8.5 g/dL (12.0-15.0); Lymphocyte # 0.99 X10^3/ul (0.83-4.51); Lymphocyte % 11.9 % (19-41); Mean Corp Hgb Conc 32.9 g/dL (32-36); Mean Corpuscular Hgb 30.8 pg (27.0-32.0); Mean Corpuscular Volume 93.5 fL (81-99); Monocyte# 0.56 X10^3/uL; Monocyte% 6.8 % (0-10); NRBC Flagged by Analyzer 0 % (0-5); Neutrophil # 6.49 X10^3/uL (2.7-7.7); Neutrophil % 78.3 % (47-70); Platelet Count 179 K/mm3 (150-450); RBC Distribution Width CV 15.9 % (11.6-14.6); RBC Distribution Width SD 55.2 fl (35.1-43.9); Red Blood Count 2.76 M/mm3 (4.2-5.4); White Blood Count 8.3 K/mm3 (4.4-11.0)
[2024-02-25 05:43] VITALS: BMI 22.6
[2024-02-25 05:49] LABS: International Normalized Ratio 1.3; Prothrombin Time (Protime)PT. 16.7 SECONDS (11.7-14.9)
[2024-02-25 05:52] LABS: Anion Gap 7 (5-15); BUN 47 mg/dL (7-18); BUN/Creat Ratio 22.9 RATIO (10-20); Calcium,Total 8.3 mg/dL (8.5-10.1); Chloride 105 mmol/L (98-107); Creatinine, Serum 2.05 mg/dL (0.55-1.02); EST Glomerular Filtration Rate 24 mL/min (>60); Est Glom Filt Rate - Afr Amer 30 mL/min (>60); Estimated Creatinine Clearance 14.15 ml/min; Glucose 80 mg/dL (74-106); Potassium 4.1 mmol/L (3.5-5.1); Sodium Level 138 mmol/L (136-145)
--- NOTE | 2024-02-25 08:22 | PN.RENAL_ITS ---
Subjective Subjective
--- NOTE | 2024-02-25 08:22 | PCM.PN.REN ---
Subjective Subjective still with nausea, dry heaves, anorexia. Pain across chest, left shoulder. Breathing better. Working with PT for weakness Objective Data Objective Data Vital Signs: Vital Signs Temp Pulse Resp BP Pulse Ox O2 Del Method 96.9 F L 55 L 18 115/53 L 97 Room Air 02/25/24 03:20 02/25/24 03:20 02/25/24 03:20 02/25/24 03:20 02/25/24 03:20 02/25/24 03:20 Oxygen Delivery Method Room Air Weight: 45.9 kg Body Mass Index (BMI) 22.6 Intake & Output: Intake and Output for Last 24 Hours 02/23/24 02/24/24 02/25/24 23:59 23:59 23:59 Intake Total 2988.75 / 2988.75 610 / 610 Output Total 750 / 750 900 / 900 300 / 300 Balance 2238.75 / 2238.75 -290 / -290 -300 / -300 Lab / Micro Data 02/25/24 05:09 02/25/24 05:09 Labs: Laboratory Results - last 24 hr 02/24/24 05:40: PT 16.2 H, INR 1.3 02/24/24 08:56: WBC 7.3, RBC 3.01 L, Hgb 9.0 L, Hct 28.4 L, MCV 94.4, MCH 29.9, MCHC 31.7 L, RDW Std Deviation 55.8 H, RDW Coeff of Rohit 15.9 H, Plt Count 206, MPV 8.9, Immature Gran % (Auto) 0.400, Neut % (Auto) 79.3 H, Lymph % (Auto) 11.4 L, [place] % (Auto) 6.1, Eos % (Auto) 2.3, Baso % (Auto) 0.5, Absolute Neuts (auto) 5.8, Absolute Lymphs (auto) 0.84, Nucleated RBC % 0 02/25/24 05:09: WBC 8.3, RBC 2.76 L, Hgb 8.5 L, Hct 25.8 L, MCV 93.5, MCH 30.8, MCHC 32.9, RDW Std Deviation 55.2 H, RDW Coeff of Rohit 15.9 H, Plt Count 179, MPV 9.0, Immature Gran % (Auto) 0.500, Neut % (Auto) 78.3 H, Lymph % (Auto) 11.9 L, [place] % (Auto) 6.8, Eos % (Auto) 2.3, Baso % (Auto) 0.2, Absolute Neuts (auto) 6.5, Absolute Lymphs (auto) 0.99, Nucleated RBC % 0, PT 16.7 H, INR 1.3, Sodium 138, Potassium 4.1, Chloride 105, Carbon Dioxide 26.0, Anion Gap 7, BUN 47 H, Creatinine 2.05 H, Estim Creat Clear Calc 14.15, Est GFR (MDRD) Af Amer 30 L, Est GFR (MDRD) Non-Af 24 L, BUN/Creatinine Ratio 22.9 H, Glucose 80, Calcium 8.3 L Micro: Microbiology 02/23/24 10:00 Urine, Clean Catch Urine Culture - Preliminary Streptococcus infantarius infa Presumptive E. coli 02/23/24 10:00 Stool Stool Lactoferrin - Final 02/23/24 10:00 Stool Enteric Bacteriology - Final 02/23/24 10:00 Stool Clostridioides difficile (PCR) - Final Physical Exam Const alert and oriented x3 General Appearance: frail Nutritional Appearance: thin Resp clear to auscultation bilaterally Cardio regular rate GI non-tender and non-distended Auscultation: normoactive bowel sounds Palpation: soft Extremity no clubbing, cyanosis or edema Neuro Sensorium / Orientation: awake and alert Psych cooperative Assessment & Plan Assessment/Plan (1) JOANNA (acute kidney injury): PLAN: Creatinine improved to 2.0 today. Continue to hold lisinopril. Avoid nephrotoxins. Add protein supplements, albumin 2.4 (2) CKD stage 3b, 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: PLAN: due to hypertensive nephropathy. chronic interstital nephritis. Baseline creatinine 1.1 to 1.2. (3) Hyperkalemia: PLAN: due to potassium supplement with lisinopril in presence of JOANNA resolved with medical mgmt (4) Tremor: PLAN: head tremor chronic (5) Cerebral infarction involving left cerebellar artery: PLAN: neurology consulted (6) CVA (cerebral vascular accident): (7) Essential (primary) hypertension: PLAN: stable BP (8) Supratherapeutic INR: PLAN: INR 4.7 on xarelto at home for history of afib. (9) Debility: PLAN: frailty continue PT
[2024-02-25] MEDS: Ondansetron 4 MG/2 ML Vial IV (08:25)
[2024-02-25 08:33] VITALS: BP 132/72; PULSE 55; RESP 18; TEMP 36.7; O2SAT 98
[2024-02-25 08:36] VITALS: BMI 22.6
--- NOTE | 2024-02-25 09:01 | CASEMGMT ---
Addendum entered by Bernadine Hall 02/25/24 09:07: Pts daughter (Ambreen) updated. Bernadine Hall DC Planning Asst. Original Note: TCU has obtained auth to admit. Physician updated. Bernadine Hall DC Planning Asst.
[2024-02-25] MEDS: Atorvastatin Calcium 40 MG Tablet PO (09:31)
[2024-02-25] MEDS: Aspirin 81 MG TAB.CHEW PO (09:31)
[2024-02-25] MEDS: Hydroxychloroquine 200 MG Tablet PO (09:31)
[2024-02-25] MEDS: APIXABAN 2.5 MG TABLET (WCH) PO (09:31)
--- NOTE | 2024-02-25 10:54 | TREXTCAR_ITS ---
Diet Diet Order/Speech Therapy: 02/23/24 07:19 Diet: Cardiac - Heart Healthy Food consistency:: Easy to Chew Liquid Consistency:: Regular/Thin Dietary Modifications:: Potassium Restricted Phosphorus Restricted Type of Dietary Supplement:: Ensure Compact w/ B & D Diet Comments: No straws, distant supervision, larger meds crushed in Routine Orders/Code Status Suppository Type: Dulcolax 10mg Suppository Frequency: Daily PRN DC O2, CPAP, BIPAP needs Home O2 Discharge instructions: No Wound(s) left ortiz: Wound Type: Abrasion coccyx: Wound Type: Skin Tear Therapies Extremity Affected:: Bilateral Lower Physical Therapy: Eval and Treat Occupational Therapy: Eval and Treat Speech Therapy: Eval and Treat Problem/Diagnosis (1) JOANNA (acute kidney injury): Status: Acute Code(s): N17.9 - Acute kidney failure, unspecified (2) CKD stage 3b, 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: Status: Acute Code(s): N18.32 - Chronic kidney disease, stage 3b (3) Hyperkalemia: Status: Acute Code(s): E87.5 - Hyperkalemia (4) Tremor: Status: Acute Code(s): R25.1 - Tremor, unspecified (5) Cerebral infarction involving left cerebellar artery: Status: Acute Code(s): I63.542 - Cerebral infarction due to unspecified occlusion or stenosis of left cerebellar artery (6) CVA (cerebral vascular accident): Status: Acute Code(s): I63.9 - Cerebral infarction, unspecified (7) Essential (primary) hypertension: Status: Acute Code(s): I10 - Essential (primary) hypertension (8) Supratherapeutic INR: Status: Acute Code(s): R79.1 - Abnormal coagulation profile (9) Debility: Status: Acute Code(s): R53.81 - Other malaise Plan 88-year-old female was sent to ED for abnormal MRI which was done on 02/19. She also had weakness of both upper arms. She had left leg weakness/was not able to range on Thursday but this has gotten better. 1. 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 Serum creatinine on pr esentation was 3.29, improved to 2.82. Diuretics, lisinopril and potassium supplement on hold. Urine sodium is 96, creatinine 20, BUN 224. Overall, urine electrolytes suggestive of diuretic effect. discontinue Xarelto. Patient has hyperkalemia, normal anion gap metabolic acidosis. Hyperkalemia cocktail ordered. Nephrology consult requested. Renal ultrasound shows chronic renal parenchymal disease. 2 small cysts in the left kidney. Incidental finding of gallstones without evidence of acute cholestatic 02/23: Urine culture shows contamination 2 organisms alphahemolytic organism and presumptive E. coli in nonpathologic range. No indication for antibiotic. Patient was seen by the composition siding worker. Creatinine improved to 2.66 with IV fluid. Possible hypertensive nephropathy/chronic interstitial nephritis. 2. Subacute left posterior circulation strokes -MRI from 02/20/2024 showed 2 small acute infarcts in the central and posterior aspect of the left cerebellar lobe and 1 in the left occipital lobe -The patient has had previous echocardiogram with negative bubble study so will not repeat at this time -CTA of the head and neck shows atherosclerotic disease without evidence of hemodynamically significant stenosis or major vessel occlusion and plaque is minimal to moderate in the carotid arteries. Patient INR is very high 4.7 although dosing of DOAC not directly related with INR but causes elevated INR and patient recovering from JOANNA therefore we will hold DOAC but later start low-dose Eliquis 2.5 mg twice daily Continue baby aspirin. PT, OT, speech therapy/swallow evaluation and management, nursing NIH stroke scale, BP and glucose monitoring and control as per stroke protocol. TSH normal. LDL 53. A1c 5.3% 02/23: Eliquis was held because of high INR. Repeat INR is 1.3. Eliquis 2.5 mg twice daily ordered. As mentioned above patient had recent bubble study and MRI therefore imaging workup is complete. Continue PT OT and speech therapy 3. Hyperkalemia: Serum potassium was 6.3. Due to JOANNA. As mentioned -No EKG changes consistent with hyperkalemia Treated with hyperkalemia cocktail encapsulate. Repeat potassium is normal 4.4. 02/23: Hyperkalemia resolved. 4. Paroxysmal A-fib: Sinus rhythm on presentation. Patient bradycardia heart rate in low 50s. Hold beta-alex and amiodarone. -Cardiology is monitoring for need of pacemaker as outpatient 5. Chronic HFpEF/pulmonary hypertension -Echocardiogram from 12/20/2023 shows an EF of 55% with a negative bubble study, mild to moderate eccentric mitral valve insufficiency and pulmonary systolic pressure of 60 mmHg read with diffuse aortic valve thickening -Diuretics on hold due to JOANNA 6. Diarrhea: The reason is unclear but stool collected. C. difficile PCR negative. Enteric pathogen panel and lactoferrin pending. Essential hypertension/hyperlipidemia -Hold Lasix, hold lisinopril -As needed medication available per stroke order set -Continue statin RA/Sjogren's syndrome -Continue home Plaquenil Chronic anemia -Normocytic and suspect related to chronic disease with history of Sjogren's and RA -Continue home iron supplementation -Hemoglobin is stable when compared to previous data DVT prophylaxis -Eliquis 2.5 mg p.o. twice daily CODE STATUS -DNR CCA with no intubation per discussion at the time of admission with daughter at the bedside Allergies/Procedures Done in Hospital Allergies ciprofloxacin (From Cipro) Allergy (Intermediate, Verified 02/22/24 20:23) NEEDS FOLLOW-UP duloxetine Allergy (Intermediate, Verified 02/22/24 20:23) NEEDS FOLLOW-UP ibuprofen Allergy (Intermediate, Verified 02/22/24 20:23) NEEDS FOLLOW-UP meloxicam Allergy (Intermediate, Verified 02/22/24 20:23) NEEDS FOLLOW-UP Penicillins Allergy (Intermediate, Verified 02/22/24 20:23) NEEDS FOLLOW-UP sulfamethoxazole (From Septra) Allergy (Intermediate, Verified 02/22/24 20:23) NEEDS FOLLOW-UP trimethoprim (From Septra) Allergy (Intermediate, Verified 02/22/24 20:23) NEEDS FOLLOW-UP Type of Care/Length of Stay Estimated LOS: Convalescent Care Less Than 30 days Type of Care Needed: Skilled Rehab Potential: Good Prognosis: Good Additional Orders/Day of Discharge Day of Discharge: 02/25/24 Dietary and Speech Recommendations Dietitian Recommendations/Changes: Will adjust diet to Cardiac with potassium and phosphorous restricted diet with consistency/texture as per DETAIL SUPERVISOR. Will d/c 120mL ensure plus HP 4 times per day w/ medpass. Will add ensure compact w/ breakfast and dinner tray. Discharge Plan Admission Admit Date/Time: 02/22/24 18:22 Primary Reason for Your Visit: stroke Attending Provider: Warner Bustamante Primary Care Provider: Keke Suarez Consulting Providers: Elsy Zafar; Neel Longoria; Ana Luisa Edmonds; Bella Tejeda; Verónica Jordan; Ragini Gauthier; Dex Caruso; Nica Owen; Elijah Vásquez; Markus Kruse; Mark De Leon; Kerrie Swann; Dario Bolanos; Estrellita Alcantara; Emma Jara; Rickie Mckeon; Royce Bustos; Mo Abbott; Reinaldo Razo; Melanie Zafar; Storm Deutsch; Marley Zafar Discharge Orders/Prescriptions Prescriptions: New acetaminophen 325 mg Tablet 650 mg PO Q4H PRN PRN (Reason: Pain 1-10 Or Fever>99.6) Qty: 0 0RF sennosides-docusate sodium [Stimulant Laxative Plus] 8.6-50 mg Tablet 2 tab PO BID PRN (Reason: Constipation) Qty: 0 0RF aspirin 81 mg Tablet,Chewable 81 mg PO BREAKFAST 30 Days Qty: 0 3RF Eliquis 5 mg Tablet 2.5 mg PO BID Qty: 0 0RF Continued atorvastatin 40 mg tablet 40 mg PO DAILY gabapentin 300 mg capsule 300 mg PO BID ferrous sulfate 325 mg (65 mg iron) tablet 325 mg PO DAILY mecobalamin (vitamin B12) 1,000 mcg tablet,chewable 1,000 mcg PO QMWF cholecalciferol (vitamin D3) 125 mcg (5,000 unit) capsule 125 mcg PO QODAY hydroxychloroquine 200 mg tablet 200 mg PO DAILY Held lisinopril 40 mg tablet 40 mg PO DAILY Hold Instructions: Hold for 1 week. JOANNA. Follow-up with nephrology furosemide 40 mg tablet 40 mg PO DAILY Qty: 30 2RF Hold Instructions: Hold for 1 week. Discontinued potassium chloride [Klor-Con M20] 20 mEq tablet,ER particles/crystals 20 meq PO DAILY Qty: 30 2RF propranolol 40 mg tablet 40 mg PO BID Patient Comments: PT UNSURE IF SHE IS TAKING THIS OR NOT Xarelto 20 mg tablet 20 mg PO QPM Rx Instructions: must administer with evening meal Referrals / Follow Up: Keke Suarez NP-C [Primary Care Provider] - Eric Patel MD [Non-Staff -Ordering Privileges] - Within 2 Weeks Disposition Disposition (needs filled in before D/C Order can be placed): Home, Self Care
[2024-02-25] MEDS: Metoclopramide 10 MG/2 ML Vial 5 MG IV (11:28)
[2024-02-25] MEDS: Ferrous Sulfate 325 MG Tablet PO (11:30)
--- NOTE | 2024-02-25 12:05 | DS.PCM_ITS ---
Providers Date of Admission: 02/22/24 Date of Discharge: 02/25/24 Primary Care Physician: MARLEE Bolivar Consultations 02/22/24 19:56 Consult: Tele-Neurology Routine Consulting Provider: [facility] Reason for Consult: Acute Ischemic Stroke/TIA EMERGENT Consult: No Notified: Yes Date Notified: 02/23/24 Time Notified: 08:23 Method of Notification: Answering Service Nursing Unit Staff Notify [facility] of Tele-Neurology Consult: Yes 02/23/24 08:31 Consult: Nephrology Routine Consulting Provider: Marley Zafar Reason for Consult: Severe Hyperkalemia EMERGENT Consult: No Notified: Yes Date Notified: 02/23/24 Time Notified: 12:26 Method of Notification: Text Reason For Visit: STROKE JOANNA HYPERKALEMIA Diagnosis Discharge Diagnosis (1) JOANNA (acute kidney injury): Status: Acute Code(s): N17.9 - Acute kidney failure, unspecified (2) CKD stage 3b, 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: Status: Acute Code(s): N18.32 - Chronic kidney disease, stage 3b (3) Hyperkalemia: Status: Acute Code(s): E87.5 - Hyperkalemia (4) Tremor: Status: Acute Code(s): R25.1 - Tremor, unspecified (5) Cerebral infarction involving left cerebellar artery: Status: Acute Code(s): I63.542 - Cerebral infarction due to unspecified occlusion or stenosis of left cerebellar artery (6) CVA (cerebral vascular accident): Status: Acute Code(s): I63.9 - Cerebral infarction, unspecified (7) Essential (primary) hypertension: Status: Acute Code(s): I10 - Essential (primary) hypertension (8) Supratherapeutic INR: Status: Acute Code(s): R79.1 - Abnormal coagulation profile (9) Debility: Status: Acute Code(s): R53.81 - Other malaise Plan 88-year-old female was sent to ED for abnormal MRI which was done on 02/19. She also had weakness of both upper arms. She had left leg weakness/was not able to range on Thursday but this has gotten better. 1. 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 Serum creatinine on presentation was 3.29, improved to 2.82. Diuretics, lisinopril and potassium supplement on hold. Urine sodium is 96, creatinine 20, BUN 224. Overall, urine electrolytes suggestive of diuretic effect. discontinue Xarelto. Patient has hyperkalemia, normal anion gap metabolic acidosis. Hyperkalemia cocktail ordered. Nephrology consult requested. Renal ultrasound shows chronic renal parenchymal disease. 2 small cysts in the left kidney. Incidental finding of gallstones without evidence of acute cholestatic 02/23: Urine culture shows contamination 2 organisms alphahemolytic organism and presumptive E. coli in nonpathologic range. No indication for antibiotic. Patient was seen by the strand galvanizer. Creatinine improved to 2.66 with IV fluid. Possible hypertensive nephropathy/chronic interstitial nephritis. 02/24: Continue to hold Lasix and lisinopril. Follow-up with the strand galvanizer. Potassium supplement discontinued 2. Subacute left posterior circulation strokes -MRI from 02/20/2024 showed 2 small acute infarcts in the central and posterior aspect of the left cerebellar lobe and 1 in the left occipital lobe -The patient has had previous echocardiogram with negative bubble study so will not repeat at this time -CTA of the head and neck shows atherosclerotic disease without evidence of hemodynamically significant stenosis or major vessel occlusion and plaque is minimal to moderate in the carotid arteries. Patient INR is very high 4.7 although dosing of DOAC not directly related with INR but causes elevated INR and patient recovering from JOANNA therefore we will hold DOAC but later start low-dose Eliquis 2.5 mg twice daily Continue baby aspirin. PT, OT, speech therapy/swallow evaluation and management, nursing NIH stroke scale, BP and glucose monitoring and control as per stroke protocol. TSH normal. LDL 53. A1c 5.3% 02/23: Eliquis was held because of high INR. Repeat INR is 1.3. Eliquis 2.5 mg twice daily ordered. As mentioned above patient had recent bubble study and MRI therefore imaging workup is complete. Continue PT OT and speech therapy 02/24: Patient is discharged on baby aspirin and Eliquis and atorvastatin. 3. Hyperkalemia: Serum potassium was 6.3. Due to JOANNA. As mentioned -No EKG changes consistent with hyperkalemia Treated with hyperkalemia cocktail encapsulate. Repeat potassium is normal 4.4. 02/23: Hyperkalemia resolved. 4. Paroxysmal A-fib: Sinus rhythm on presentation. Patient bradycardia heart rate in low 50s. Hold beta-alex and amiodarone. -Cardiology is monitoring for need of pacemaker as outpatient 5. Chronic HFpEF/pulmonary hypertension -Echocardiogram from 12/20/2023 shows an EF of 55% with a negative bubble study, mild to moderate eccentric mitral valve insufficiency and pulmonary systolic pressure of 60 mmHg read with diffuse aortic valve thickening -Diuretics on hold due to JOANNA 02/24: Patient does not have any cardiac symptoms but was admitted in December for HF exacerbation. I do not think she needs repeat echo 6. Diarrhea: The reason is unclear but stool collected. C. difficile PCR negative. Enteric pathogen panel and lactoferrin pending. 02/24: Patient complained of mild left lower quadrant/iliac pain. No significant tenderness. Patient also has mild nauseous and vomited. Resolved with the symptomatic management. Essential hypertension/hyperlipidemia -Hold Lasix, hold lisinopril -As needed medication available per stroke order set -Continue statin RA/Sjogren's syndrome -Continue home Plaquenil Chronic anemia -Normocytic and suspect related to chronic disease with history of Sjogren's and RA -Continue home iron supplementation -Hemoglobin is stable when compared to previous data DVT prophylaxis -Eliquis 2.5 mg p.o. twice daily CODE STATUS -DNR CCA with no intubation per discussion at the time of admission with daughter at the bedside Medications at Discharge Home Medications atorvastatin 40 mg tablet 40 mg PO DAILY 09/07/23 cholecalciferol (vitamin D3) 125 mcg (5,000 unit) capsule 125 mcg PO QODAY 09/07/23 ferrous sulfate 325 mg (65 mg iron) tablet 325 mg PO DAILY 09/07/23 gabapentin 300 mg capsule 300 mg PO BID 09/07/23 lisinopril 40 mg tablet 40 mg PO DAILY 09/07/23 mecobalamin (vitamin B12) 1,000 mcg chewable tablet 1,000 mcg PO QMWF 09/07/23 hydroxychloroquine 200 mg tablet 200 mg PO DAILY Immunosupressive 01/27/24 furosemide 40 mg tablet 40 mg PO DAILY #30 tabs 01/30/24 acetaminophen 325 mg tablet 650 mg (2 x 325 mg) PO Q4H PRN PRN Pain 1-10 Or Fever>99.6 #0 tabs 01/16/25 apixaban 5 mg tablet (Eliquis) 2.5 mg (1/2 x 5 mg) PO BID #0 tabs 02/25/24 aspirin 81 mg chewable tablet 81 mg PO BREAKFAST 30 days #0 tabs 02/25/24 ondansetron 4 mg disintegrating tablet 4 mg PO Q6H PRN nausea and vomiting #30 tabs 02/25/24 sennosides 8.6 mg-docusate sodium 50 mg tablet (Stimulant Laxative Plus) 2 tab PO BID PRN Constipation #0 tabs 02/25/24 Physical Exam Narrative Seen and examined Patient had mild nausea and vomiting last evening after food. Got better with Zofran and antiemetic. Advised soft food for next 3 to 4 days. Patient might have nausea and vomiting from cerebellar stroke. Physical exam General: Alert, Oriented x3, Cooperative HEENT: Nystagmus resolved. Mild strabismus of left eye, lateral rectus. Atraumatic, PERRLA, EOMI, Normocephalic Oral: Oral mucosa dry. No Gingival or Mucosal Lesions/ Ulcerations Neck: Supple, No JVD, Negative Carotid Bruits Chest wall/Lungs: Air entry diminished in bilateral lung bases. No crepitation/rhonchi Cardiovascular: Sinus bradycardia, Normal S1, Normal S2, systolic murmur Abdomen: Bowel Sounds hyper, Soft, Non Tender, Non-Distended : Positive dysuria. No renal angle tenderness. No suprapubic tenderness. Extremities: No edema, Capillary Refill Less than 3 Seconds Skin: No rashes, No breakdown Musculoskeletal: Muscle strength 4/5 at knees and hip joints. no Tenderness to Palpation of Joints or Extremities Neurological: Postural and gait instability. Tremors of head bobbing, flexion extension and horizontal. Hands tremor. Cranial nerves II-XII grossly intact, DTR 2+/4. Psych/Mental Status: Flat affect Weight / BMI Weight Weight: 101 lb 3.075 oz Body Mass Index (BMI) 22.6 ABG / Lab / Microbiology Data 02/25/24 05:09 02/25/24 05:09 Laboratory: Laboratory Results - last 24 hr 02/25/24 05:09: WBC 8.3, RBC 2.76 L, Hgb 8.5 L, Hct 25.8 L, MCV 93.5, MCH 30.8, MCHC 32.9, RDW Std Deviation 55.2 H, RDW Coeff of Rohit 15.9 H, Plt Count 179, MPV 9.0, Immature Gran % (Auto) 0.500, Neut % (Auto) 78.3 H, Lymph % (Auto) 11.9 L, [place] % (Auto) 6.8, Eos % (Auto) 2.3, Baso % (Auto) 0.2, Absolute Neuts (auto) 6.5, Absolute Lymphs (auto) 0.99, Nucleated RBC % 0, PT 16.7 H, INR 1.3, Sodium 138, Potassium 4.1, Chloride 105, Carbon Dioxide 26.0, Anion Gap 7, BUN 47 H, C reatinine 2.05 H, Estim Creat Clear Calc 14.15, Est GFR (MDRD) Af Amer 30 L, Est GFR (MDRD) Non-Af 24 L, BUN/Creatinine Ratio 22.9 H, Glucose 80, Calcium 8.3 L Microbiology: Microbiology 02/23/24 10:00 Urine, Clean Catch Urine Culture - Preliminary Streptococcus infantarius infa Presumptive E. coli 02/23/24 10:00 Stool Stool Lactoferrin - Final 02/23/24 10:00 Stool Enteric Bacteriology - Final 02/23/24 10:00 Stool Clostridioides difficile (PCR) - Final D/C Instructions DC O2, CPAP, BIPAP Needs Home O2 Discharge instructions: No Meaningful Use Info Meaningful Use Meaningful Use Diagnoses (Choose all that apply): Ischemic CVA CVA Therapy Assessed for PT,OT and/or ST?: Yes Ischemic Stroke Antithrombotic order at d/c?: Yes Dx of Atrial fib/flutter?: Yes Anticoagulant at discharge?: Yes Statin Dosing Therapy Reference: STATIN DOSE THERAPY REFERENCE: * Patients > 75 years receive moderate or high dose statin therapy. * Patients 75 years or YOUNGER should receive HIGH intensity statin dose unless contraindicated. You will be required to document reason for non-treatment if statin daily dose does not meet guidelines. HIGH DOSE STATIN THERAPY DAILY Atorvastatin > than or = to 40 mg Rosuvastatin > than or = to 20 mg Amlodipine + Atorvastatin > than or = to 2.5/40 mg Ezetimibe + Simvastatin 10/80 mg Simvastatin 80mg Statins at discharge?: Yes Primary Dx Acute Ischemic CVA?: Yes Discharge Plan Admission Admit Date/Time: 01/13/25 18:22 Primary Reason for Your Visit: stroke Attending Provider: Warner Bustamante Primary Care Provider: Keke Suarez Consulting Providers: Elsy Zafar; Neel Longoria; Ana Luisa Edmonds; Bella Tejeda; Verónica Jordan; Ragini Gauthier; Dex Caruso; Nica Owen; Elijah Vásquez; Markus Kruse; Mark DeL eon; Kerrie Swann; Dario Bolanos; Estrellita Alcantara; Emma Jara; Rickie Mckeon; Royce Bustos; Mo Abbott; Reinaldo Razo; Melanie Zafar; Storm Deutsch; Marley Zafar Discharge Orders/Prescriptions Prescriptions: New acetaminophen 325 mg Tablet 650 mg PO Q4H PRN PRN (Reason: Pain 1-10 Or Fever>99.6) Qty: 0 0RF sennosides-docusate sodium [Stimulant Laxative Plus] 8.6-50 mg Tablet 2 tab PO BID PRN (Reason: Constipation) Qty: 0 0RF aspirin 81 mg Tablet,Chewable 81 mg PO BREAKFAST 30 Days Qty: 0 3RF Eliquis 5 mg Tablet 2.5 mg PO BID Qty: 0 0RF ondansetron 4 mg tablet,disintegrating 4 mg PO Q6H PRN (Reason: nausea and vomiting) Qty: 30 0RF Continued atorvastatin 40 mg tablet 40 mg PO DAILY gabapentin 300 mg capsule 300 mg PO BID ferrous sulfate 325 mg (65 mg iron) tablet 325 mg PO DAILY mecobalamin (vitamin B12) 1,000 mcg tablet,chewable 1,000 mcg PO QMWF cholecalciferol (vitamin D3) 125 mcg (5,000 unit) capsule 125 mcg PO QODAY hydroxychloroquine 200 mg tablet 200 mg PO DAILY Held lisinopril 40 mg tablet 40 mg PO DAILY Hold Instructions: Hold for 1 week. OJANNA. Follow-up with nephrology furosemide 40 mg tablet 40 mg PO DAILY Qty: 30 2RF Hold Instructions: Hold for 1 week. Discontinued potassium chloride [Klor-Con M20] 20 mEq tablet,ER particles/crystals 20 meq PO DAILY Qty: 30 2RF propranolol 40 mg tablet 40 mg PO BID Patient Comments: PT UNSURE IF SHE IS TAKING THIS OR NOT Xarelto 20 mg tablet 20 mg PO QPM Rx Instructions: must administer with evening meal Referrals / Follow Up: Eric Patel MD [Non-Staff -Ordering Privileges] - Within 2 Weeks Keke Suarez NP-C [Primary Care Provider] - Disposition Disposition (needs filled in before D/C Order can be placed): Home, Self Care Charges/Coding Visit Charges Inpatient E&M: 82990 Disch Hosp >30min
--- NOTE | 2024-02-25 12:25 | CASEMGMT ---
Social Work- SW faxed discharge documentation to TCU admissions. ANDREA updated pt of d/c. Plan: TCU; skilled level of care ANSELMO Carter
== END 2024-02-25 13:45 | disposition skilled nursing facility (03) | DRG 64 ==
LOC: ED 16:45 → PCU 22:56
PROVIDERS: Internal Medicine Nephrology; Admitting Provider Internal Medicine; Emergency Provider Emergency Medicine; PCP Nurse Practitioner Family; Visit Provider Internal Medicine
DX: I63.542 Cerebral infarction due to unspecified occlusion or stenosis of left cerebellar artery (principal); N17.0 Acute kidney failure with tubular necrosis; D68.9 Coagulation defect, unspecified; E87.20 Acidosis, unspecified; I13.0 Hypertensive heart and chronic kidney disease with heart failure and stage 1 through stage 4 chronic kidney disease, or unspecified chronic kidney disease; I50.32 Chronic diastolic (congestive) heart failure; N11.9 Chronic tubulo-interstitial nephritis, unspecified; D63.8 Anemia in other chronic diseases classified elsewhere; I27.20 Pulmonary hypertension, unspecified; Z66 Do not resuscitate; I48.0 Paroxysmal atrial fibrillation; G25.0 Essential tremor; N18.32 Chronic kidney disease, stage 3b; I65.01 Occlusion and stenosis of right vertebral artery; M35.05 Sjogren syndrome with inflammatory arthritis; E87.5 Hyperkalemia; M79.7 Fibromyalgia; I44.0 Atrioventricular block, first degree; E78.5 Hyperlipidemia, unspecified; K80.20 Calculus of gallbladder without cholecystitis without obstruction; R54 Age-related physical debility; R19.7 Diarrhea, unspecified; Z79.01 Long term (current) use of anticoagulants; Z79.82 Long term (current) use of aspirin; R29.701 NIHSS score 1; N28.1 Cyst of kidney, acquired
CPT/HCPCS: 36415; 70450; 70496; 70498; 70551; 71045; 76770; 80048; 80053; 80061; 80069; 81001; 82570; 83036; 83630; 83735; 84100; 84300; 84443; 84484; 84540; 85025; 85027; 85610; 85730; 87077; 87086; 87088; 87186; 87493; 87506; 92610; 93005; 94762; 97116; 97162; 97166; 97530; 97802; 99285; Q9967; A4216; J0612; J2405

== ENCOUNTER 2024-02-25 13:53 | Inpatient (IN) | payer MEDICARE, SELFPAY ==
[2024-02-25 14:12] VITALS: BP 106/62; PULSE 53; RESP 16; TEMP 35.8; O2SAT 98; BMI 20.7
--- NOTE | 2024-02-25 14:21 | NURSING ---
Called and left VM with Dr. Patel's office to see about follow-up appt. Await return call.
[2024-02-25 14:57] VITALS: PULSE 52; RESP 16; O2SAT 98
--- NOTE | 2024-02-25 16:29 | HP.PCM_ITS ---
HPI - General General Date of Admission: 02/25/24 Date of Service: 02/25/24 Chief Complaint: Here for rehabilitation. HPI Narrative JONNA GIRON, is a 88 Female who presents with followin02/22/2024 [facility] ED neurologic signs/symptoms. Abnormal MRI brain 2 days ago, Reclast November 2023. Developed generalized weakness afterwards. Seen in ED 3 weeks for congestive heart failure, followed up with PCP. MRI brain abnormal, PCP told patient to go to ER. Unable to raise right leg 3 days ago, overall weakness of arms and legs. MRI brain left small strokes x 2, no TNK, outside time window. INR 4.7, on coumadin, Creatinine 3.29, K 6.3. Calcium gluconate, insulin, D10 given for hyperkalemia. CTA head/neck negative for large vessel occlusion. 02/22/2024 Admit [facility]. Baseline Creatinine 1.4, Hold Furosemide, Hold Lisinopril, Hold potassium, check lytes, 1 liter IV bolus, renal ultrasound, consult Nephrology for acute kidney injury. Aspirin 81mg daily, change Xarelto to Eliquis 2.5mg twice daily, consult Neurology, PT/OT/ST for stroke/atrial fibrillation. Monitor hyperkalemia. Check C. Diff, enteric panel, lactoferrin for diarrhea. 02/23/2024 Falls x 3, November 2023. Creatinine 2.82, renal ultrasound showed chronic renal disease, left kidney cyst x 2. PT/OT/ST for stroke. Potassium improved to 4.4. C. Diff negative for diarrhea. 02/23/2024 Nephrology recommended holding Lisinopril, avoid nephrotoxins. INR 4.7 2/2 Xarelto. 02/24/2024 Neurology agrees with Eliquis 2.5mg twice daily, Aspirin 81mg daily, Atorvastatin 40mg, recent bubble study. 02/24/2024 Outpatient neurology follow up for titubation. Urine culture contaminated, Hold antibiotics. Creatinine 2.66 with IV fluids. PT/OT/ST for stroke. Hyperkalemia resolved. 02/24/2024 Nausea, dry heaves, chest pain, shortness of breath, joint aches. Creatinine 2.28, K 3.7, head tremor persists. INR 1.3. PT/OT for SNF. 02/25/2024 Admit to TCU with debility, here for rehabilitation, strengthening, prior to discharge home with daughter. [facility] Medical History Bradycardia, sinus Hyperlipidemia Aortic valve disease Cardiac arrhythmia Fibromyalgia CKD (chronic kidney disease) stage 3, GFR 30-59 ml/min Rheumatoid arthritis Osteoporosis Afib Essential (primary) hypertension Shoulder pain with history of repair of rotator cuff Sjogren syndrome Home Medications ?Medication ?Instructions ?Recorded ?Last Taken ?Type atorvastatin 40 mg tablet 40 mg PO DAILY cholesterol 09/07/23 02/21/24 History cholecalciferol (vitamin D3) 125 125 mcg PO QODAY supplement 09/07/23 02/22/24 History mcg (5,000 unit) capsule ferrous sulfate 325 mg (65 mg 325 mg PO DAILY supplement 09/07/23 02/21/24 History iron) tablet gabapentin 300 mg capsule 300 mg PO BID Nerve pain 09/07/23 02/22/24 History lisinopril 40 mg tablet 40 mg PO DAILY BP 09/07/23 02/22/24 History mecobalamin (vitamin B12) 1,000 1,000 mcg PO QMWF supplement 09/07/23 02/22/24 History mcg chewable tablet hydroxychloroquine 200 mg tablet 200 mg PO DAILY Immunosupressive 01/27/24 Unknown History furosemide 40 mg tablet 40 mg PO DAILY fluid pill #30 tabs 01/30/24 02/22/24 Rx acetaminophen 325 mg tablet 650 mg (2 x 325 mg) PO Q4H PRN PRN 02/25/24 Unknown Rx Pain 1-10 Or Fever>99.6 #0 tabs apixaban 5 mg tablet (Eliquis) 2.5 mg (1/2 x 5 mg) PO BID 02/25/24 Unknown Rx afib/prevent clots #0 tabs aspirin 81 mg chewable tablet 81 mg PO BREAKFAST blood thinner 02/25/24 Unknown Rx 30 days #0 tabs ondansetron 4 mg disintegrating 4 mg PO Q6H PRN nausea and 02/25/24 Unknown Rx tablet vomiting #30 tabs sennosides 8.6 mg-docusate sodium 2 tab PO BID PRN Constipation #0 02/25/24 Unknown Rx 50 mg tablet (Stimulant Laxative tabs Plus) Allergy/AdvReac Type Severity Reaction Status Date / Time ciprofloxacin (From Cipro) Allergy Intermediate NEEDS Verified 02/22/24 20:23 FOLLOW-UP duloxetine Allergy Intermediate NEEDS Verified 02/22/24 20:23 FOLLOW-UP ibuprofen Allergy Intermediate NEEDS Verified 02/22/24 20:23 FOLLOW-UP meloxicam Allergy Intermediate NEEDS Verified 02/22/24 20:23 FOLLOW-UP Penicillins Allergy Intermediate NEEDS Verified 02/22/24 20:23 FOLLOW-UP sulfamethoxazole (From Allergy Intermediate NEEDS Verified 02/22/24 20:23 Septra) FOLLOW-UP trimethoprim (From Septra) Allergy Intermediate NEEDS Verified 02/22/24 20:23 FOLLOW-UP Surgical History History of appendectomy History of cardiac radiofrequency ablation (RFA) S/P hernia repair Social History household members: family housing: house Smoking Status: Never smoker alcohol intake: never substance use type: does not use ROS Constitutional Constitutional: Denies chills, fever(s) or weight gain ENT HEENT: Denies headache(s), nasal congestion or nasal discharge Cardiovascular Cardiovascular: Denies chest pain or palpitations Respiratory/Chest Respiratory/Chest: Denies cough, excessive phlegm production or shortness of breath with exertion Gastrointestinal Gastrointestinal: Denies abdominal pain, nausea or vomiting Genitourinary Genitourinary: Denies dysuria Musculoskeletal Musculoskeletal: Denies joint pain or joint swelling Integumentary Integumentary: Denies rash or wounds Neurologic Neurologic: Denies focal weakness, numbness or tingling Psychiatric Psychiatric: Denies anxiety, auditory hallucinations, depression, homicidal jefe ation or suicidal ideation Vital Signs Vital Signs Vital Signs: 02/25/24 14:12 02/25/24 14:57 Temperature 96.4 F L Temperature Source Temporal Pulse Rate 53 L 52 L Pulse Rhythm Regular Pulse Strength Normal (2+) Respiratory Rate 16 16 Respiratory Effort Normal Non-Labored Respiratory Depth Normal Respiratory Pattern Normal Blood Pressure 106/62 Blood Pressure Mean 76 Blood Pressure Source Monitor Blood Pressure Position Semi-Fowlers Blood Pressure Location Left Arm Pulse Ox 98 98 Oxygen Delivery Method Room Air Room Air Weight Weight: 42.048 kg Body Mass Index (BMI) 20.7 Physical Exam Const alert General Appearance: cooperative HEENT normocephalic Eyes PERRL and EOMs intact bilaterally Neck supple, no JVD and no carotid bruits Resp normal respiratory effort, normal air movement and clear to auscultation bilaterally Cardio regular rate and regular rhythm GI normal to inspection, nondistended, normoactive bowel sounds, non-tender and non-distended Extremity normal capillary refill General Extremity: Negative for edema Skin no rashes or lesions noted General Skin Exam: no breakdown Psych affect normal Appearance: appropriate Assessment & Plan Assessment/Plan (1) Debility: (2) CVA (cerebral vascular accident): (3) JOANNA (acute kidney injury): (4) Hyperkalemia: (5) Diarrhea: (6) Hyperlipidemia: (7) Vitamin D deficiency: (8) Iron deficiency anemia: (9) Neuropathic pain: (10) Essential (primary) hypertension: (11) Vitamin B12 deficiency: (12) Rheumatoid arthritis: (13) CKD stage 3b, 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: (14) Afib: PLAN: Plan 88 year old female with below past medical history hospitalized for stroke, complicated by acute on chronic kidney injury, hyperkalemia, diarrhea, admitted to TCU with debility, here for rehabilitation, strengthening, prior to discharge home with daughter. * Debility - PT/OT/ST. * Pain - Tylenol 1000mg q6 prn pain (1-10). * Bowel - senna/colace 1 tablet bid prn, Magnesium citrate 300mL po x 1 prn. * Adult immunization - Administer pneumonia vaccine, covid vaccine, flu vaccine as appropriate. * DVT prophylaxis - on Eliquis. * Stroke - Xarelto failure, on Eliquis 2.5mg bid, Aspirin 81mg daily x 21 days, then stop. 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 * Hyperlipidemia - Atorvastatin 40mg qhs. * Vitamin D deficiency - D3 125mcg every other day. * Vitamin B12 deficiency - B12 1000mcg MWF. * Iron deficiency anemia - Ferrous sulfate 325mg daily. * Neuropathic pain - Gabapentin 300mg bid. * Rheumatoid Arthritis - Plaquenil 200mg daily. * Skin irritation - Calmoseptine topical bid, Eucerin topical bid prn. * Nausea - Zofran odt 4mg q6 prn, xray of abdomen.
--- NOTE | 2024-02-25 17:00 | RAD_ITS ---
EXAM: XR ABDOMEN, 1 VIEW CLINICAL INDICATION: Nausea. TECHNIQUE: Frontal supine view of the abdomen/pelvis. COMPARISON: No relevant prior studies available. FINDINGS: LOWER THORAX: No acute pathology. GASTROINTESTINAL TRACT: Unremarkable. Non-obstructive. No bowel or stomach distention. ORGANS: Unremarkable as visualized. No organomegaly. No abnormal calcifications. BONES/JOINTS: No acute pathology. SOFT TISSUES: No acute pathology. RAD/Abdomen Single View IMPRESSION: Non-obstructive bowel gas pattern. Electronically Signed: Desean Pérez MD at 17:29 EST ,
[2024-02-25] MEDS: Lactulose 20 GM/30 ML UDC PO (18:22)
[2024-02-25] MEDS: Senna/Docusate Sodium 1 Tablet 2 TABLET PO (20:49)
[2024-02-25] MEDS: Gabapentin 300 MG Capsule PO (20:49)
[2024-02-25] MEDS: APIXABAN 2.5 MG TABLET (WCH) PO (20:49)
[2024-02-25] MEDS: Menthol/Lanolin/Calamine/Znox 113 GM Tube 1 APPLIC TOPICAL (20:49)
[2024-02-26 05:45] LABS: Absolute Lymphocyte Count 0.81 X10^3/uL (0.83-4.51); Absolute Neutrophil Count 5.7 X10^3/uL (2.0-7.7); Basophil# 0.04 X10^3/uL; Basophil% 0.5 % (0-1); Eosinophil# 0.14 X10^3/uL; Eosinophils% 1.9 % (0-5); Hematocrit 26.9 % (37-47); Hemoglobin 8.5 g/dL (12.0-15.0); Lymphocyte # 0.81 X10^3/ul (0.83-4.51); Lymphocyte % 11.1 % (19-41); Mean Corp Hgb Conc 31.6 g/dL (32-36); Mean Corpuscular Hgb 29.9 pg (27.0-32.0); Mean Corpuscular Volume 94.7 fL (81-99); Mean Platelet Vol. 8.9 fl (6.2-12.0); Monocyte# 0.54 X10^3/uL; Monocyte% 7.4 % (0-10); NRBC Flagged by Analyzer 0 % (0-5); Neutrophil # 5.72 X10^3/uL (2.7-7.7); Neutrophil % 78.6 % (47-70); Platelet Count 181 K/mm3 (150-450); RBC Distribution Width CV 15.8 % (11.6-14.6); RBC Distribution Width SD 54.9 fl (35.1-43.9); Red Blood Count 2.84 M/mm3 (4.2-5.4); White Blood Count 7.3 K/mm3 (4.4-11.0)
[2024-02-26 06:06] LABS: Anion Gap 6 (5-15); BUN 34 mg/dL (7-18); BUN/Creat Ratio 21.2 RATIO (10-20); Calcium,Total 8.6 mg/dL (8.5-10.1); Chloride 108 mmol/L (98-107); EST Glomerular Filtration Rate 32 mL/min (>60); Est Glom Filt Rate - Afr Amer 39 mL/min (>60); Estimated Creatinine Clearance 16.75 ml/min; Glucose 80 mg/dL (74-106); Potassium 4.2 mmol/L (3.5-5.1); Sodium Level 138 mmol/L (136-145)
[2024-02-26 08:30] VITALS: BP 112/47; PULSE 52; RESP 16; TEMP 36.3; O2SAT 99
[2024-02-26] MEDS: Cholecalciferol (Vit D3) 125 MCG CAPSULE (5,000 UNITS) PO (08:38)
[2024-02-26] MEDS: Gabapentin 300 MG Capsule PO ×2 (08:38→22:44)
[2024-02-26] MEDS: Aspirin 81 MG TAB.CHEW PO (08:39)
[2024-02-26] MEDS: Atorvastatin Calcium 40 MG Tablet PO (08:39)
[2024-02-26] MEDS: Cyanocobalamin 500 MCG Tablet 1000 MCG PO (08:39)
[2024-02-26] MEDS: Senna/Docusate Sodium 1 Tablet 2 TABLET PO ×2 (08:39→22:45)
[2024-02-26] MEDS: Hydroxychloroquine 200 MG Tablet PO (08:39)
[2024-02-26] MEDS: Menthol/Lanolin/Calamine/Znox 113 GM Tube 1 APPLIC TOPICAL ×2 (08:39→22:44)
[2024-02-26] MEDS: APIXABAN 2.5 MG TABLET (WCH) PO ×2 (08:39→22:44)
[2024-02-26] MEDS: 0.9% Saline Lock 10 ML Syringe IV (08:39)
--- NOTE | 2024-02-26 10:47 | NURSING ---
Business Rules Developer Note; Activity Asset: Felipe Andres is independent in her choice of daily activities w/reminders. She asked for coloring pages, word search and will watch tv, read and visit w/family. Daughter will bring her items from home and visits weekly. She welcomes visits from the unit operator and therapy dog. Staff will remind her of daily activities, encourage social activities and respect her right to say no.
[2024-02-26] MEDS: Ferrous Sulfate 325 MG Tablet PO (12:23)
[2024-02-26] MEDS: Tuberculin,Purif.prot.deriv. 50 TU/ML Vial 0.1 ML ID (12:24)
[2024-02-26] MEDS: Magnesium Citrate 300 ML PO (15:14)
--- NOTE | 2024-02-26 16:37 | CASEMGMT ---
Social Work SW met with patient to complete initial assessment. Introduced self and role. Verified/updated contacts. Confirmed code status as DNR-CCA, no intubation. Pt reports to having advanced directives, but unsure who is HCPOA, and did agree for gdtr to provide copies. Educated to [facility] insurance with [employer] 03/01 and continued stay is not guaranteed with each review. Pt's goal is to return home living with dtr, however, dtr works full-time. SW will continue to follow for DC planning. Brittnee Wilson, MD PHYSICIAN DERMATOLOGIST TRAIL MAINTENANCE WORKER
--- NOTE | 2024-02-26 18:17 | NURSING ---
Patient had emesis during dinner time this shift. 0% consumed of meal. Connie desiree and crackers offered.
[2024-02-26] MEDS: Ondansetron ODT 4 MG Tablet PO (18:32)
[2024-02-27] MEDS: Senna/Docusate Sodium 1 Tablet 2 TABLET PO ×2 (07:58→20:11)
[2024-02-27] MEDS: Gabapentin 300 MG Capsule PO ×2 (07:58→20:22)
[2024-02-27] MEDS: Aspirin 81 MG TAB.CHEW PO (07:58)
[2024-02-27] MEDS: Hydroxychloroquine 200 MG Tablet PO (07:58)
[2024-02-27] MEDS: APIXABAN 2.5 MG TABLET (WCH) PO ×2 (07:58→20:11)
[2024-02-27] MEDS: Atorvastatin Calcium 40 MG Tablet PO (07:58)
[2024-02-27] MEDS: Menthol/Lanolin/Calamine/Znox 113 GM Tube 1 APPLIC TOPICAL ×2 (07:58→20:10)
[2024-02-27 10:16] VITALS: BP 105/40; PULSE 52; RESP 18; TEMP 36.4; O2SAT 98
--- NOTE | 2024-02-27 10:36 | PHA.CONS_ITS ---
Documented by User: Niesha Tafoya 02/27/24 10:52 TCU RX Drug Regimen Review Subjective/Objective Subjective/Objective Subjective: TCU Admission. 88 YOF presented to the ER with neurological symptoms. Hospitalized for stroke, complicated by acute on chronic kidney injury, hyperkalemia, diarrhea. Admitted to TCU with debility for strengthening and rehabilitation. Objective: Allergies ciprofloxacin (From Cipro) Allergy (Intermediate, Verified 02/22/24 20:23) NEEDS FOLLOW-UP duloxetine Allergy (Intermediate, Verified 02/22/24 20:23) NEEDS FOLLOW-UP ibuprofen Allergy (Intermediate, Verified 02/22/24 20:23) NEEDS FOLLOW-UP meloxicam Allergy (Intermediate, Verified 02/22/24 20:23) NEEDS FOLLOW-UP Penicillins Allergy (Intermediate, Verified 02/22/24 20:23) NEEDS FOLLOW-UP sulfamethoxazole (From Septra) Allergy (Intermediate, Verified 02/22/24 20:23) NEEDS FOLLOW-UP trimethoprim (From Septra) Allergy (Intermediate, Verified 02/22/24 20:23) NEEDS FOLLOW-UP Current Medications Generic Name Dose Route Start Last Admin Trade Name Freq PRN Reason Stop Dose Admin Acetaminophen 1,000 mg 02/25/24 16:44 Acetaminophen 500 Mg Tablet PO Q6H PRN PRN Pain Score 1-10 Apixaban 2.5 mg 02/25/24 22:00 02/27/24 07:58 Apixaban 2.5 Mg Tablet (Wch) PO 2.5 mg BID SAY Administration Aspirin 81 mg 02/26/24 08:00 02/27/24 07:58 Aspirin 81 Mg Tab.Chew PO 03/15/24 08:01 81 mg BREAKFAST SAY Administration Atorvastatin Calcium 40 mg 02/26/24 10:00 02/27/24 07:58 Atorvastatin Calcium 40 Mg Tablet PO 40 mg DAILY SAY Administration Calamine/Phenol 1 applic 02/25/24 22:00 02/27/24 07:58 Menthol/Lanolin/Calamine/Znox 113 Gm Tube TOPICAL 1 applic BID SAY Administration Protocol Cholecalciferol 125 mcg 02/26/24 10:00 02/26/24 08:38 Cholecalciferol (Vit D3) 125 Mcg Capsule (5,000 Units) PO 125 mcg QODAY SAY Administration Cyanocobalamin 1,000 mcg 02/26/24 10:00 02/26/24 08:39 Cyanocobalamin 500 Mcg Tablet PO 1,000 mcg MoWeFr@1000 SAY Administration Ferrous Sulfate 325 mg 02/26/24 12:00 02/26/24 12:23 Ferrous Sulfate 325 Mg Tablet PO 325 mg LUNCH SAY Administration Gabapentin 300 mg 02/25/24 22:00 02/27/24 07:58 Gabapentin 300 Mg Capsule PO 300 mg BID SAY Administration Hydroxychloroquine Sulfate 200 mg 02/26/24 08:00 02/27/24 07:58 Hydroxychloroquine 200 Mg Tablet PO 200 mg 0800 SAY Administration Magnesium Citrate 300 ml 02/25/24 14:09 02/26/24 15:14 Magnesium Citrate 300 Ml PO 300 ml X1 PRN Administration Constipation Multi-Ingredient Cream 1 applic 02/25/24 14:44 Petrolatum 33% Tube TOPICAL BID PRN PRN DRY SKIN Protocol Ondansetron HCl 4 mg 02/25/24 14:04 02/26/24 18:32 Ondansetron Odt 4 Mg Tablet PO 4 mg Q6H PRN Administration nausea and vomiting Senna/Docusate Sodium 2 tablet 02/25/24 22:00 02/27/24 07:58 Senna/Docusate Sodium 1 Tablet PO 2 tablet BID SAY Administration Sodium Chloride 10 - 40 ml 02/25/24 14:40 02/26/24 08:39 0.9% Saline Lock 10 Ml Syringe IV 10 ml UD PRN Administration SALINE FLUSH Tuberculin PPD 0.1 ml 03/04/24 10:00 Tuberculin,Purif.Prot.Deriv. 50 Tu/Ml Vial ID 03/04/24 10:01 X1 ONE Problem List (Updated 02/27/24 @ 00:04 by Background Krzysztof) Vitamin B12 deficiency (Acute) Neuropathic pain (Acute) Iron deficiency anemia (Acute) Vitamin D deficiency (Acute) Diarrhea (Acute) JOANNA (acute kidney injury) (Acute) Hyperkalemia (Acute) Hyperlipidemia (Acute) Rheumatoid arthritis (Acute) Afib (Acute) Essential (primary) hypertension (Acute) Vital Signs Temp Pulse Resp BP Pulse Ox O2 Del Method 97.5 F L 52 L 18 105/40 L 98 Room Air 02/27/24 10:16 02/27/24 10:16 02/27/24 10:16 02/27/24 10:16 02/27/24 10:16 02/27/24 10:16 Oxygen Delivery Method Room Air Weight: 42.048 kg Body Mass Index (BMI) 20.7 Sodium 138 mmol/L (136-145) 02/26/24 05:06 Potassium 4.2 mmol/L (3.5-5.1) 02/26/24 05:06 Chloride 108 mmol/L (98-107) H 02/26/24 05:06 Carbon Dioxide 24.0 mmol/L (21.0-32.0) 02/26/24 05:06 Anion Gap 6 (5-15) 02/26/24 05:06 BUN 34 mg/dL (7-18) H 02/26/24 05:06 Creatinine 1.60 mg/dL (0.55-1.02) H 02/26/24 05:06 Est GFR (MDRD) Af Amer 39 mL/min (>60) L 02/26/24 05:06 Est GFR (MDRD) Non-Af 32 mL/min (>60) L 02/26/24 05:06 BUN/Creatinine Ratio 21.2 RATIO (10-20) H 02/26/24 05:06 Glucose 80 mg/dL (74-106) 02/26/24 05:06 Assessment/Plan: 1. Pain: acetaminophen 1000mg PO Q6H PRN pain 1-10. Resident has not had any doses. Please continue to monitor for increased pain and PRN usage. 2. Bowel: senna/docusate 1T PO BID and magnesium citrate 300mL PO x1 PRN cons tipation. Resident has had 1 dose of magnesium citrate. Please continue to monitor for constipation/diarrhea and PRN usage. Last documented bowel movement was 02/22. 3. Stroke: apixaban 2.5mg PO BID and aspirin 81mg PO daily x 21 days. Please see physician discharge summary from hospitalization for reasoning of lower apixaban dose. Please continue to monitor for S/S of bleeding/stroke and hemoglobin (last 8.5g/dL). 4. Hyperlipidemia: atorvastatin 40mg PO QHS. Please continue to monitor lipid panel (last 02/23/24), LFTs (last 02/23/24) and muscle pain. 5. Rheumatoid arthritis: hydroxychloroquine 200mg PO daily. Please continue to monitor CBC, rash, vision changes and neuropathy (on gabapentin). 6. Iron deficiency anemia: ferrous sulfate 325mg PO daily. Please continue to monitor hemoglobin, constipation, dark stools and iron studies (last 01/28/24). 7. Nausea: ondansetron 4mg PO Q6H PRN nausea/vomiting. Resident has had 1 dose so far. Please continue to monitor for nausea/vomiting, PRN usage, drowsiness. 8. Vitamin D and B12 deficiencies: cholecalciferol 125mcg PO every other day and cyanocobalamin 1000mcg PO MWF. Please consider ordering vitamin D and B12 levels as there are no levels in the chart. Thanks. 9. Skin irritation: Calmoseptine topical bid, Eucerin topical bid prn. Please continue to monitor. Assessment/Plan for indications treated with psychotropic medications: 1. Neuropathic pain: gabapentin 300mg PO BID. GDR not appropriate as this medication is being used for neuropathy, however, due to CrCl of 16 mL/min, please consider adjusting frequency to once daily (200-700mg max) to prevent adverse effects. Thanks. Please continue to monitor for falls/fractures (BEERs), renal function (BEERs) and confusion. Medical chart and medication regimen reviewed. The following medication irregularities or issues were identified: 1. Cholecalciferol 125mcg PO every other day and cyanocobalamin 1000mcg PO MWF. Please consider ordering vitamin D and B12 levels as there are no levels in the chart. Thanks. 2. Gabapentin 300mg PO BID. GDR not appropriate as this medication is being used for neuropathy, however, due to CrCl of 16 mL/min, please consider adjusting frequency to once daily (200-700mg max) to prevent adverse effects. Thanks. Date Date of Note: 02/27/24 Documented by User: Dr. Segundo Sultana MD 02/28/24 09:54 TCU RX Drug Regimen Review Provider Comments Provider responsibility Provider Comments to Recommendations by Pharmacy Disagree: Define (Will order Vitamin D, B12 level, but maintain Gabapentin has ordered, resident benefiting from gabapentin with no untoward effects. )
[2024-02-27] MEDS: Ferrous Sulfate 325 MG Tablet PO (12:15)
[2024-02-28 08:00] VITALS: BP 146/55; PULSE 52; RESP 18; TEMP 36.3; O2SAT 99
[2024-02-28] MEDS: APIXABAN 2.5 MG TABLET (WCH) PO ×2 (08:11→19:55)
[2024-02-28] MEDS: Hydroxychloroquine 200 MG Tablet PO (08:11)
[2024-02-28] MEDS: Cholecalciferol (Vit D3) 125 MCG CAPSULE (5,000 UNITS) PO (08:11)
[2024-02-28] MEDS: Senna/Docusate Sodium 1 Tablet 2 TABLET PO ×2 (08:11→19:54)
[2024-02-28] MEDS: Aspirin 81 MG TAB.CHEW PO (08:11)
[2024-02-28] MEDS: Atorvastatin Calcium 40 MG Tablet PO (08:11)
[2024-02-28] MEDS: Gabapentin 300 MG Capsule PO ×2 (08:12→19:55)
[2024-02-28] MEDS: Menthol/Lanolin/Calamine/Znox 113 GM Tube 1 APPLIC TOPICAL ×2 (08:12→20:05)
[2024-02-28] MEDS: Ferrous Sulfate 325 MG Tablet PO (12:42)
[2024-02-28] MEDS: Ondansetron ODT 4 MG Tablet PO (18:30)
[2024-02-29] MEDS: Acetaminophen 500 MG Tablet 1000 MG PO ×2 (05:23→12:15)
[2024-02-29 05:40] LABS: Hematocrit 24.4 % (37-47); Hemoglobin 7.7 g/dL (12.0-15.0)
[2024-02-29 08:07] LABS: Iron 56 ug/dL (50-170); Iron Binding Capacity,Total 160 ug/dL (250-450)
[2024-02-29 08:21] VITALS: BP 139/49; PULSE 66; RESP 18; O2SAT 95
--- NOTE | 2024-02-29 09:21 | NURSING ---
Addendum entered by Kristi Carbajal 02/29/24 09:28: Updated daughter Ambreen. Original Note: 1 unit blood ordered, infusion center scheduled her for 03/01/24 at 0815. Updated resident.
[2024-02-29] MEDS: Senna/Docusate Sodium 1 Tablet 2 TABLET PO (09:29)
[2024-02-29] MEDS: Cyanocobalamin 500 MCG Tablet 1000 MCG PO (09:29)
[2024-02-29] MEDS: Atorvastatin Calcium 40 MG Tablet PO (09:29)
[2024-02-29] MEDS: Gabapentin 300 MG Capsule PO (09:30)
[2024-02-29] MEDS: Hydroxychloroquine 200 MG Tablet PO (09:30)
[2024-02-29] MEDS: Menthol/Lanolin/Calamine/Znox 113 GM Tube 1 APPLIC TOPICAL (09:30)
[2024-02-29] MEDS: Aspirin 81 MG TAB.CHEW PO (09:30)
--- NOTE | 2024-02-29 10:55 | NURSING ---
Updated Dr. Sultana on positive occult stool, order to consult GI and hold eliquis.
[2024-02-29] MEDS: Ferrous Sulfate 325 MG Tablet PO (12:15)
[2024-02-29] MEDS: Ondansetron ODT 4 MG Tablet PO (12:16)
[2024-02-29 14:21] VITALS: TEMP 36.8
--- NOTE | 2024-02-29 15:25 | NURSING ---
Addendum entered by Kristi Carbajal 02/29/24 15:57: Updated daughter Ambreen of all new results and orders. Original Note: Resident having bad lower abdominal pain and continues to have nausea after having zofran. Nauseated and threw up after lunch today. Updated Dr. Sultana, order for CT scan abdomen/pelvis with no IV contrast, CBC, BMP, and phenergan 12.5mg q6 PRN.
[2024-02-29] MEDS: proMETHazine 25 MG Tablet 12.5 MG PO (16:01)
[2024-02-29 16:04] VITALS: BP 138/49; PULSE 61; RESP 16; TEMP 36.4; O2SAT 100
--- NOTE | 2024-02-29 16:25 | NURSING ---
Dr peralta here assessed pt, would like pt to go down to ER. sent pt down to ER at this time via bed. vitals stable. Report called to ER. daughter updated.
[2024-02-29 16:38] LABS: Bedside Glucose 97 mg/dL (74-106)
[2024-02-29 16:54] LABS: Vitamin B12 877 pg/mL (211-911); Vitamin D,25 Hydroxy 53.4 ng/mL
--- NOTE | 2024-02-29 18:24 | PCM.DC.SUM ---
Providers Date of Admission: 02/25/24 Primary Care Physician: MARLEE Bolivar Consultations 02/29/24 11:02 Consult: Gastroenterology Routine Consulting Provider: Ane[facility] Reason for Consult: +occult stool, anemia EMERGENT Consult: No MD Notified: Yes Date Notified: 02/29/24 Time Notified: 11:02 Method of Notification: Text Reason For Visit: STROK & JOANNA Diagnosis Discharge Diagnosis (1) Debility: Status: Inactive Code(s): R53.81 - Other malaise (2) CVA (cerebral vascular accident): Status: Inactive Code(s): I63.9 - Cerebral infarction, unspecified (3) JOANNA (acute kidney injury): Status: Acute Code(s): N17.9 - Acute kidney failure, unspecified (4) Hyperkalemia: Status: Acute Code(s): E87.5 - Hyperkalemia (5) Diarrhea: Status: Acute Code(s): R19.7 - Diarrhea, unspecified (6) Hyperlipidemia: Status: Acute Code(s): E78.5 - Hyperlipidemia, unspecified (7) Vitamin D deficiency: Status: Acute Code(s): E55.9 - Vitamin D deficiency, unspecified (8) Iron deficiency anemia: Status: Acute Code(s): D50.9 - Iron deficiency anemia, unspecified (9) Neuropathic pain: Status: Acute Code(s): M79.2 - Neuralgia and neuritis, unspecified (10) Essential (primary) hypertension: Status: Acute Code(s): I10 - Essential (primary) hypertension (11) Vitamin B12 deficiency: Status: Acute Code(s): E53.8 - Deficiency of other specified B group vitamins (12) Rheumatoid arthritis: Status: Acute Code(s): M06.9 - Rheumatoid arthritis, unspecified (13) CKD stage 3b, 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: Status: Inactive Code(s): N18.32 - Chronic kidney disease, stage 3b (14) Afib: Status: Acute Code(s): I48.91 - Unspecified atrial fibrillation Plan 88 year old female with below past medical history hospitalized for stroke, complicated by acute on chronic kidney injury, hyperkalemia, diarrhea, admitted to TCU with debility, here for rehabilitation, strengthening, prior to discharge home with daughter. Debility - PT/OT/ST. Pain - Tylenol 1000mg q6 prn pain (1-10). Bowel - senna/colace 1 tablet bid prn, Magnesium citrate 300mL po x 1 prn. Adult immunization - Administer pneumonia vaccine, covid vaccine, flu vaccine as appropriate. DVT prophylaxis - on Eliquis. Stroke - Xarelto failure, on Eliquis 2.5mg bid, Aspirin 81mg daily x 21 days, then stop. skilled nursing Eliquis with Aspirin increases risk of bleeding without further lowering risk of stroke. Hyperlipidemia - Atorvastatin 40mg qhs. Vitamin D deficiency - D3 125mcg every other day. Vitamin B12 deficiency - B12 1000mcg MWF. Iron deficiency anemia - Ferrous sulfate 325mg daily. Neuropathic pain - Gabapentin 300mg bid. Rheumatoid Arthritis - Plaquenil 200mg daily. Skin irritation - Calmoseptine topical bid, Eucerin topical bid prn. Nausea - Zofran odt 4mg q6 prn, xray of abdomen. Medications at Discharge Home Medications atorvastatin 40 mg tablet 40 mg PO DAILY cholesterol 09/07/23 cholecalciferol (vitamin D3) 125 mcg (5,000 unit) capsule 125 mcg PO QODAY supplement 09/07/23 ferrous sulfate 325 mg (65 mg iron) tablet 325 mg PO DAILY supplement 09/07/23 gabapentin 300 mg capsule 300 mg PO BID Nerve pain 09/07/23 lisinopril 40 mg tablet 40 mg PO DAILY BP 09/07/23 mecobalamin (vitamin B12) 1,000 mcg chewable tablet 1,000 mcg PO QMWF supplement 09/07/23 hydroxychloroquine 200 mg tablet 200 mg PO DAILY Immunosupressive 01/27/24 furosemide 40 mg tablet 40 mg PO DAILY fluid pill #30 tabs 01/30/24 acetaminophen 325 mg tablet 650 mg (2 x 325 mg) PO Q4H PRN PRN Pain 1-10 Or Fever>99.6 #0 tabs 02/25/24 apixaban 5 mg tablet (Eliquis) 2.5 mg (1/2 x 5 mg) PO BID afib/prevent clots #0 tabs 02/25/24 aspirin 81 mg chewable tablet 81 mg PO BREAKFAST blood thinner 30 days #0 tabs 02/25/24 ondansetron 4 mg disintegrating tablet 4 mg PO Q6H PRN nausea and vomiting #30 tabs 02/25/24 sennosides 8.6 mg-docusate sodium 50 mg tablet (Stimulant Laxative Plus) 2 tab PO BID PRN Constipation #0 tabs 02/25/24 Hospital Course Operations None Procedures None Summary of Care Provided Minutes Spent on Discharge: 35 Hospital Course: 88 year old female with below past medical history hospitalized for stroke, complicated by acute on chronic kidney injury, hyperkalemia, diarrhea, admitted to TCU with debility, here for rehabilitation, strengthening, prior to discharge home with daughter. 02/29/2024 AM Hemoglobin 7.7, Hemoccult positive, plan was to transfuse 1 unit PRBC, consult Dr. Patterson, 1 dose of Eliquis was held, Aspirin 81mg daily continued, transfusion did not happen. 02/29/2024 PM Resident complained of abdominal pain, nausea, vomiting. She then described right lower extremity weakness/paresthesia, similar to symptoms she experienced when she had left sided stroke on admission. Concern with recurrent stroke, abdominal pathology causing gastrointestinal bleeding, and pain. Unable to perform imaging on TCU due to resident having Medicare Advantage plan, preauthorization offices closed due to . Discharge to [facility] ED 02/29/2024 for evaluation, possible admission to [facility]. Physical Exam Const alert General Appearance: cooperative HEENT normocephalic Eyes PERRL and EOMs intact bilaterally Neck supple, no JVD and no carotid bruits Resp normal respiratory effort, normal air movement and clear to auscultation bilaterally Cardio regular rate and regular rhythm GI normal to inspection, nondistended, normoactive bowel sounds and non-distended Palpation: tender Extremity normal capillary refill General Extremity: Negative for edema Skin no rashes or lesions noted General Skin Exam: no breakdown Neuro moves all extremities Neuro Narrative: Right leg weakness. Psych affect normal Appearance: appropriate Medical Records Data Medical Nutrition Assessment Dietitian: Malnutrition Criteria Met Start: 02/26/24 13:54 Freq: Status: Active Protocol: Document 02/26/24 13:55 SLA (Rec: 02/26/24 13:55 SLA [id number]) Nutrition Malnutrition Evidence of Malnutrition Exists Yes Malnutrition (severe): Acute Illness/Injury Evidenced By Suboptimal Energy Intake ( Severe),Weight Loss (Severe) Clinical Problem Acute Disease or Injury Related Malnutrition Etiology related to suboptimal energy intake Signs/Symptoms as evidenced by res meeting < 50% of est nutritional needs and unintended wt loss x ~ 3 months [employer] Status Active Problem Recommendation Dietitian Recommendations/Changes Will liberalize diet to Regular No Added Salt - consistency per [employer] STEWARD - d/t signs and symptoms of malnutrition Will change ensure compact to 4 oz strawberry ensure plus high protein tid w/ meals Will monitor for changes in res nutritional status and make additional rec as indicated. Weight / BMI Weight Weight: 42.048 kg Body Mass Index (BMI) 20.7 ABG / Lab / Microbiology Data 02/29/24 05:04 02/26/24 05:06 Laboratory: Laboratory Results - last 24 hr 02/28/24 10:08: Vitamin B12 877, Vitamin D 25-Hydroxy 53.4 02/29/24 05:04: Hgb 7.7 L, Hct 24.4 L, Iron 56, TIBC 160 L, Iron Saturation 35.0 02/29/24 08:10: Blood Type A POSITIVE, Antibody Screen NEGATIVE, Crossmatch See Detail 02/29/24 16:06: POC Glucose 97 Microbiology: Microbiology 02/29/24 09:15 Stool Stool Occult Blood (ASTON) - Final Occult Blood Positive D/C Instructions Discharge Diet: No restrictions Discharge Activity: Return to Normal Activity, May Shower and Use Walker Weight Bearing Status: Weight bearing as tolerated Call your doctor if you observe: Fever of 101 or Higher, Inability to urinate, Inability to have a bowel movement, Shortness of breath, Dizziness, Fainting spells, Swelling in the ankles, Chest pain and Uncontrolled pain DC O2, CPAP, BIPAP Needs Home O2 Discharge instructions: No Additional Instructions: Discharge to [facility] ED 02/29/2024 for evaluation, possible admission to [facility]. Please Follow Up With: Kishor Watts MD Meaningful Use Info Meaningful Use Meaningful Use Diagnoses (Choose all that apply): Ischemic CVA CVA Therapy Assessed for PT,OT and/or ST?: Yes Ischemic Stroke Antithrombotic order at d/c?: Yes Dx of Atrial fib/flutter?: Yes Anticoagulant at discharge?: Yes Statin Dosing Therapy Reference: STATIN DOSE THERAPY REFERENCE: * Patients > 75 years receive moderate or high dose statin therapy. * Patients 75 years or YOUNGER should receive HIGH intensity statin dose unless contraindicated. You will be required to document reason for non-treatment if statin daily dose does not meet guidelines. HIGH DOSE STATIN THERAPY DAILY Atorvastatin > than or = to 40 mg Rosuvastatin > than or = to 20 mg Amlodipine + Atorvastatin > than or = to 2.5/40 mg Ezetimibe + Simvastatin 10/80 mg Simvastatin 80mg Statins at discharge?: Yes Primary Dx Acute Ischemic CVA?: Yes IV thrombolytic ordered during stay?: No Reason IV thrombolytic not ordered: Treatment not Indicated Discharge Plan Admission Admit Date/Time: 02/25/24 13:53 Primary Reason for Your Visit: Debility. Attending Provider: Segundo Sultana Chi Primary Care Provider: Keke Suarez Instructions Additional Instructions / Restrictions: Discharge to [facility] ED 02/29/2024 for evaluation, possible admission to [facility]. Discharge Orders/Prescriptions Prescriptions: No Action atorvastatin 40 mg tablet 40 mg PO DAILY gabapentin 300 mg capsule 300 mg PO BID lisinopril 40 mg tablet 40 mg PO DAILY Patient Comments: hold for JOANNA. ferrous sulfate 325 mg (65 mg iron) tablet 325 mg PO DAILY mecobalamin (vitamin B12) 1,000 mcg tablet,chewable 1,000 mcg PO QMWF cholecalciferol (vitamin D3) 125 mcg (5,000 unit) capsule 125 mcg PO QODAY hydroxychloroquine 200 mg tablet 200 mg PO DAILY furosemide 40 mg tablet 40 mg PO DAILY Qty: 30 2RF Patient Comments: Hold for 1 week. JOANNA. Follow-up with nephrology acetaminophen 325 mg Tablet 650 mg PO Q4H PRN PRN (Reason: Pain 1-10 Or Fever>99.6) Qty: 0 0RF sennosides-docusate sodium [Stimulant Laxative Plus] 8.6-50 mg Tablet 2 tab PO BID PRN (Reason: Constipation) Qty: 0 0RF aspirin 81 mg Tablet,Chewable 81 mg PO BREAKFAST 30 Days Qty: 0 3RF Eliquis 5 mg Tablet 2.5 mg PO BID Qty: 0 0RF ondansetron 4 mg tablet,disintegrating 4 mg PO Q6H PRN (Reason: nausea and vomiting) Qty: 30 0RF Referrals / Follow Up: Kishor Watts MD [Non-Staff -Ordering Privileges] - 04/04/24 11:00 am () Keke Suarez, CLINICAL LABORATORY TECHNOLOGIST-C [Primary Care Provider] - Disposition Disposition (needs filled in before D/C Order can be placed): Acute Care Hospital [facility]
--- NOTE | 2024-03-08 13:03 | MDS.RN ---
Information for the MDS was obtained from review of the clinical record, interview of resident, staff, and direct observation of resident?s care.
== END 2024-02-29 16:30 | disposition short-term general hospital (02) | DRG 57 ==
PROVIDERS: Admitting Provider Family Medicine Geriatric Medicine; PCP Nurse Practitioner Family; Visit Provider Family Medicine Geriatric Medicine
DX: I69.398 Other sequelae of cerebral infarction (principal); E44.1 Mild protein-calorie malnutrition; I13.0 Hypertensive heart and chronic kidney disease with heart failure and stage 1 through stage 4 chronic kidney disease, or unspecified chronic kidney disease; I50.32 Chronic diastolic (congestive) heart failure; N18.32 Chronic kidney disease, stage 3b; M06.9 Rheumatoid arthritis, unspecified; D50.9 Iron deficiency anemia, unspecified; I48.91 Unspecified atrial fibrillation; E53.8 Deficiency of other specified B group vitamins; E78.5 Hyperlipidemia, unspecified; M79.7 Fibromyalgia; E55.9 Vitamin D deficiency, unspecified; E87.5 Hyperkalemia; R11.2 Nausea with vomiting, unspecified; Z79.82 Long term (current) use of aspirin; Z79.01 Long term (current) use of anticoagulants; R29.898 Other symptoms and signs involving the musculoskeletal system; Z79.899 Other long term (current) drug therapy; R10.9 Unspecified abdominal pain; R20.0 Anesthesia of skin; Z68.20 Body mass index [BMI] 20.0-20.9, adult
CPT/HCPCS: 36415; 74018; 80048; 82274; 82306; 82607; 82962; 83540; 83550; 85014; 85018; 85025; 86850; 86900; 86901; 92523; 92526; 92610; 97110; 97116; 97162; 97166; 97530; 97535; 97802; A4216

== ENCOUNTER 2024-02-29 16:32 | Inpatient (IN) | payer MEDICARE, SELFPAY ==
[2024-02-29] VITALS (8 sets, daily range): BP systolic 118–163; BP diastolic 45–86; PULSE 55–59; RESP 10–18; TEMP 36.4–37; O2SAT 99–100; BMI 27.2; BMI 21.8
--- NOTE | 2024-02-29 16:51 | EDS_ITS ---
HPI History of Present Illness Chief Complaint: Abd Pain [facility] Medical History Bradycardia, sinus Hyperlipidemia Aortic valve disease Cardiac arrhythmia Fibromyalgia CKD (chronic kidney disease) stage 3, GFR 30-59 ml/min Rheumatoid arthritis Osteoporosis Afib Essential (primary) hypertension Shoulder pain with history of repair of rotator cuff Sjogren syndrome Home Medications ?Medication ?Instructions ?Recorded ?Last Taken ?Type atorvastatin 40 mg tablet 40 mg PO DAILY cholesterol 09/07/23 02/21/24 History cholecalciferol (vitamin D3) 125 125 mcg PO QODAY supplement 09/07/23 02/22/24 History mcg (5,000 unit) capsule ferrous sulfate 325 mg (65 mg 325 mg PO DAILY supplement 09/07/23 02/21/24 History iron) tablet gabapentin 300 mg capsule 300 mg PO BID Nerve pain 09/07/23 02/22/24 History lisinopril 40 mg tablet 40 mg PO DAILY BP 09/07/23 02/22/24 History mecobalamin (vitamin B12) 1,000 1,000 mcg PO QMWF supplement 09/07/23 02/22/24 History mcg chewable tablet hydroxychloroquine 200 mg tablet 200 mg PO DAILY Immunosupressive 01/27/24 Unknown History furosemide 40 mg tablet 40 mg PO DAILY fluid pill #30 tabs 01/30/24 02/22/24 Rx acetaminophen 325 mg tablet 650 mg (2 x 325 mg) PO Q4H PRN PRN 02/25/24 Unknown Rx Pain 1-10 Or Fever>99.6 #0 tabs apixaban 5 mg tablet (Eliquis) 2.5 mg (1/2 x 5 mg) PO BID 02/25/24 Unknown Rx afib/prevent clots #0 tabs aspirin 81 mg chewable tablet 81 mg PO BREAKFAST blood thinner 02/25/24 Unknown Rx 30 days #0 tabs ondansetron 4 mg disintegrating 4 mg PO Q6H PRN nausea and 02/25/24 Unknown Rx tablet vomiting #30 tabs sennosides 8.6 mg-docusate sodium 2 tab PO BID PRN Constipation #0 02/25/24 Unknown Rx 50 mg tablet (Stimulant Laxative tabs Plus) Allergy/AdvReac Type Severity Reaction Status Date / Time ciprofloxacin (From Cipro) Allergy Intermediate NEEDS Verified 02/22/24 20:23 FOLLOW-UP duloxetine Allergy Intermediate NEEDS Verified 02/22/24 20:23 FOLLOW-UP ibuprofen Allergy Intermediate NEEDS Verified 02/22/24 20:23 FOLLOW-UP meloxicam Allergy Intermediate NEEDS Verified 02/22/24 20:23 FOLLOW-UP Penicillins Allergy Intermediate NEEDS Verified 02/22/24 20:23 FOLLOW-UP sulfamethoxazole (From Allergy Intermediate NEEDS Verified 02/22/24 20:23 Sept) FOLLOW-UP trimethoprim (From ) Allergy Intermediate NEEDS Verified 02/22/24 20:23 FOLLOW-UP Surgical History History of appendectomy History of cardiac radiofrequency ablation (RFA) S/P hernia repair Social History household members: family housing: house Smoking Status: Never smoker alcohol intake: never substance use type: does not use EXAM Physical Exam Const Vital Signs: 02/29/24 16:32 02/29/24 16:42 02/29/24 17:15 Temperature 97.8 F 98.6 F Temperature Source Temporal Temporal Pulse Rate 55 L 55 L Respiratory Rate 10 L 10 L Blood Pressure 148/52 H 148/52 H 144/68 H Blood Pressure Mean 84 84 93 Pulse Ox 100 100 Oxygen Delivery Method Room Air Room Air 02/29/24 17:42 02/29/24 19:00 02/29/24 21:00 Temperature 98.6 F Temperature Source Oral Pulse Rate 55 L 55 L 59 L Respiratory Rate 10 L 12 14 Blood Pressure 144/68 H 118/53 L 163/86 H Blood Pressure Mean 93 74 111 Pulse Ox 100 99 99 Oxygen Delivery Method Room Air Room Air MDM MDM MDM Narrative Medical decision making narrative: HISTORY OF PRESENT ILLNESS: 88-year-old female presents from the transitional care unit with concern for right leg weakness and heaviness as well as nausea vomiting and abdominal cramping. The patient states she noticed right leg weakness on Thursday. Last known well Thursday (02-27-2024). States since then she has had ongoing weakness of right lower extremity. No recent head trauma. She notes today she developed severe mid abdominal pain nausea and vomiting. Denies chest pain. Per Dr. Sultana patient was Hemoccult positive earlier today. So he held her Eliquis today. REVIEW OF SYSTEMS: Pertinent positives: Right leg weakness, abdominal pain Pertinent negatives: Fever, cough, chest pain PHYSICAL EXAM: Nursing triage notes reviewed, Vital signs reviewed Constitutional: please see [facility] HENT: MMM Eyes: Pupils equal round and reactive to light, Extraocular muscles intact Neck: No stridor, no JVD, full neck ROM Lungs: Clear to auscultation, No wheezing or rales. No increased work of breathing, no conversational dyspnea, no accessory muscle use, no nasal flaring. No respiratory distress noted Heart: Regular rate and rhythm, No murmurs, No rubs and No gallops, 2+ distal pulses (radial, femoral, posterior tibial) in all extremities Abdomen: Soft, there is no tenderness, rigidity, rebound or guarding, no obvious peritoneal signs, no palpable pulsatile abdominal masses, no auscultated abdominal bruit : No CVAT Extremities: No edema Neuro: Alert, oriented to person place and time, slight weakness noted in right lower extremity otherwise intact strength in upper extremity and left lower extremity. Intact sensation. No obvious cranial nerve defects. Skin: No rash or lesions noted MEDICAL DECISION MAKING: Chief Complaint: Right leg heaviness, abdominal pain External records reviewed: Reviewed CT scan from 02/22/2024 which showed atrophy, left parietal and occipital infarct. Hemoglobin 7.7 g/dL, down from 9 g/dL 02/24/2024. Hemoccult positive from today. Factors affecting care: A-fib (on Eliquis), hyperlipidemia, CKD, from myalgia, CVA, Social determinants of health: none History obtained from others: none Consults: Gastroenterology (Dr. Patterson), Internal medicine (Dr. Child) [facility] Narrative: The patient was initially hemodynamically stable, afebrile and nontoxic- appearing. Exam with right leg weakness. NIH of 1. The patient is out of the window for any TNK or thrombectomy. I suspect her symptoms are related to recently diagnosed left-sided CVA. I considered the following differential diagnosis: GI bleed, CVA, intra- abdominal perforation obstruction, UTI, ALL IMAGES (IF OBTAINED) HAVE BEEN PERSONALLY REVIEWED AND INTERPRETED BY MYSELF. CBC with no leukocytosis, noted hemoglobin was increased by approximate 2 g/dL 9.6 BMP without significant electrolyte abnormalities, no evidence of metabolic acidosis or endorgan hypoperfusion, no JOANNA High-sensitivity troponin is negative, no evidence of myocardial ischemia Lipase is wnl indicating no pancreatic inflammation. LFTs show no evidence of hepatobiliary pathology. I have personally reviewed the patient's chest x-ray. Chest x-ray is unremarkable for pulmonary edema, pneumothorax, pneumonia or focal cardiopulmonary abnormality. CT scan abdomen pelvis showed no evidence of acute intra-abdominal pathology did show some inflammatory (terminal ileitis) changes as well as biliary ductal changes. CT scan head is negative for ICH EKG with sinus bradycardia rate 53, right axis deviation, right bundle branch block, no STEMI Discussed patient's CT findings with Dr. Patterson who noted that we are able to MRCP here. He also is amenable to seeing the patient for concern for GI bleed on Eliquis. Case discussed with Dr. Child. Recommended admitting patient to regular nursing floor. The patient and/or family, caregivers express understanding. The patient and/or family, caregivers agrees with the plan. Shared decision making: I will have a discussion with the patient and or visitors regarding risk/benefits of further testing or admission. They will be made aware of of the risk/benefits inherent in this decision they will be given the opportunity to voice understanding. Total critical care time today provided was at least 0 minutes. This excludes separately billable procedures. Critical care time (if documented) is secondary to the patient having high probability of clinically significant/life threatening deterioration in the patient's condition which required my urgent intervention. Impression: 1. Right leg weakness 2. Nausea/vomiting 3. Acute abdominal pain 4. Severe anemia 5. GI bleed Dispo: Admit to floor This note was generated with [employer] dictation software. It may contain incorrect words, spelling, and punctuation that were not noted in review of the chart prior to signing. Lab Data Labs: Laboratory Results - last 24 hr 02/29/24 02/29/24 17:14 18:53 WBC 7.9 RBC 3.06 L Hgb 9.6 L Hct 29.6 L MCV 96.7 MCH 31.4 MCHC 32.4 RDW Std Deviation 56.0 H RDW Coeff of Rohit 15.8 H Plt Count 267 MPV 9.0 Immature Gran % (Auto) 2.400 H Neut % (Auto) 76.8 H Lymph % (Auto) 10.9 L [place] % (Auto) 7.0 Eos % (Auto) 2.4 Baso % (Auto) 0.5 Absolute Neuts (auto) 6.0 Absolute Lymphs (auto) 0.86 Nucleated RBC % 0 Sodium 137 Potassium 4.6 Chloride 107 Carbon Dioxide 24.0 Anion Gap 7 BUN 39 H Creatinine 1.55 H Estim Creat Clear Calc 20.28 Est GFR (MDRD) Af Amer 41 L Est GFR (MDRD) Non-Af 34 L BUN/Creatinine Ratio 25.2 H Glucose 105 Calcium 8.8 Total Bilirubin 0.30 AST 33 ALT 59 H Alkaline Phosphatase 81 Troponin I High Sens 22 Total Protein 6.5 Albumin 2.9 L Globulin 3.6 Albumin/Globulin Ratio 0.8 L Lipase 31 Urine Color Yellow Urine Clarity Clear Urine pH 6.0 Ur Specific [place] 1.010 Urine Protein 15 H Urine Glucose (UA) Normal Urine Ketones Negative Urine Occult Blood Negative Urine Nitrite Negative Urine Bilirubin Negative Urine Urobilinogen Normal Ur Leukocyte Esterase 25 H Urine RBC 0 SEEN Urine WBC 0 SEEN Ur Squamous Epith Cells 0 SEEN Urine Bacteria RARE Urine Mucus 0 SEEN Radiography Diagnostic Testing: Clinical Impression(s) from Imaging Studies Chest X-Ray 02/29/24 17:30 IMPRESSION: No acute radiographic abnormalities. Electronically Signed: Ariel Ann MD at 18:21 EST , Abdomen/Pelvis CT 02/29/24 18:55 IMPRESSION: Findings suspicious for terminal ileitis which is nonspecific. One possible etiology is Crohn''s disease. Mild extrahepatic biliary ductal dilatation. Recommend MRCP. 1.1 cm intermediate density cyst in the left mid renal pole. Recommend follow-up MR abdomen with and without contrast. Large amount of fecal retention. Electronically Signed: Ariel Ann MD at 20:42 EST , Brain CT 02/29/24 18:55 IMPRESSION: No acute intracranial abnormality. Chronic involutional and ischemic changes of the brain. Electronically Signed: Ariel Ann MD at 19:28 EST , Discharge Plan Disposition Disposition: Acute Care Hospital [facility] Discharge Date/Time: 02/29/24 21:48
--- NOTE | 2024-02-29 17:04 | EKG12_ITS ---
Test Reason : GENERAL Blood Pressure : */* mmHG Vent. Rate : 53 BPM Atrial Rate : 53 BPM P-R Int : 240 ms QRS Dur : 136 ms QT Int : 464 ms P-R-T Axes : 50 -73 9 degrees QTcB Int : 435 ms Sinus bradycardia with 1st degree A-V block Left axis deviation Right bundle branch block Abnormal ECG When compared with ECG of 23-Feb-2024 09:12, QRS axis Shifted right Nonspecific T wave abnormality has replaced inverted T waves in Anterior leads QT has shortened Confirmed by TRACY KHAN, ANKIT ([id number]), editor continuity and script BIJAN RAMOS ([id number]) on 03/07/2024 2:21:06 PM Referred By: Saleem Child Confirmed By: ANKIT MOLINA MD
[2024-02-29] MEDS: Morphine 2 MG/ML Syringe IV (17:16)
[2024-02-29] MEDS: Ondansetron 4 MG/2 ML Vial IV (17:16)
[2024-02-29] MEDS: 0.9% Normal Saline (500mL Bag) 500 ML 1000 ML IV (17:16)
[2024-02-29 17:21] LABS: Absolute Lymphocyte Count 0.86 X10^3/uL (0.83-4.51); Basophil# 0.04 X10^3/uL; Basophil% 0.5 % (0-1); Eosinophil# 0.19 X10^3/uL; Eosinophils% 2.4 % (0-5); Hematocrit 29.6 % (37-47); Hemoglobin 9.6 g/dL (12.0-15.0); Lymphocyte # 0.86 X10^3/ul (0.83-4.51); Lymphocyte % 10.9 % (19-41); Mean Corp Hgb Conc 32.4 g/dL (32-36); Mean Corpuscular Hgb 31.4 pg (27.0-32.0); Mean Corpuscular Volume 96.7 fL (81-99); Monocyte# 0.55 X10^3/uL; NRBC Flagged by Analyzer 0 % (0-5); Neutrophil # 6.03 X10^3/uL (2.7-7.7); Neutrophil % 76.8 % (47-70); Platelet Count 267 K/mm3 (150-450); RBC Distribution Width CV 15.8 % (11.6-14.6); Red Blood Count 3.06 M/mm3 (4.2-5.4); White Blood Count 7.9 K/mm3 (4.4-11.0)
--- NOTE | 2024-02-29 17:30 | RAD_ITS ---
INDICATION: Fatigue EXAMINATION/TECHNIQUE: X-RAY - XR Chest 1 View COMPARISON: None. FINDINGS: The lungs are clear. Tortuous and calcified thoracic aorta. The heart is not enlarged. No pleural effusion or pneumothorax. Degenerative changes of the thoracic spine. Right-sided total shoulder arthroplasty. RAD/Chest 1 View (Portable) IMPRESSION: No acute radiographic abnormalities. Electronically Signed: Ariel Ann MD at 18:21 EST ,
[2024-02-29 17:39] LABS: ALB/GLOB Ratio 0.8 RATIO (0.9-2.4); AST(SGOT) 33 U/L (15-37); Alanine Aminotransfer ALT/SGPT 59 U/L (13-56); Albumin, Serum 2.9 g/dL (3.2-5.0); Alkaline Phosphatase 81 U/L (45-117); Anion Gap 7 (5-15); BUN 39 mg/dL (7-18); BUN/Creat Ratio 25.2 RATIO (10-20); Calcium,Total 8.8 mg/dL (8.5-10.1); Chloride 107 mmol/L (98-107); Creatinine, Serum 1.55 mg/dL (0.55-1.02); EST Glomerular Filtration Rate 34 mL/min (>60); Est Glom Filt Rate - Afr Amer 41 mL/min (>60); Estimated Creatinine Clearance 20.28 ml/min; Globulin 3.6 g/dL (2.2-4.2); Glucose 105 mg/dL (74-106); Lipase 31 U/L (13-75); Potassium 4.6 mmol/L (3.5-5.1); Protein, Total 6.5 g/dL (6.4-8.2); Sodium Level 137 mmol/L (136-145); Troponin-I HS 22 pg/mL (3.0-54.0)
--- NOTE | 2024-02-29 18:55 | CT_ITS ---
INDICATION: Diffuse abdominal pain -- IV PO Contrast EXAMINATION: CT Abdomen And Pelvis W/ Contrast Injection TECHNIQUE: Helically acquired images were obtained of the abdomen and pelvis after IV contrast. A radiation dose optimization technique was used for this scan. IV Contrast dosage and agent: Oral and amp; IV Gastrografin and amp; 75mL [id number] Oral contrast: None. COMPARISON: None. FINDINGS: Visualized lung bases: Unremarkable Liver: The common bile duct is dilated measuring up to 1 cm in diameter. Gallbladder: Unremarkable Spleen: Unremarkable Pancreas: Unremarkable Adrenal Glands: Unremarkable Kidneys: There is a 1.1 cm intermediate density cyst in the left mid renal pole. Vasculature: Severe aortoiliac atherosclerotic disease. GI Tract: Scattered colonic diverticula. There is mild circumferential wall thickening and increased wall enhancement of the terminal ileum without significant surrounding inflammatory changes.. Large amount retained stool in the colon. There is short segment circumferential wall thickening of the sigmoid colon without significant surrounding inflammatory changes.. Lymphadenopathy: None Peritoneum: No ascites. Bladder: Unremarkable Reproductive organs: Unremarkable Bones/Soft tissues: There are diffuse degenerative changes of the spine. Multilevel grade 1 spondylolisthesis of the lumbar spine. CT/Abdomen/Pelvis WITH Contrast IMPRESSION: Findings suspicious for terminal ileitis which is nonspecific. One possible etiology is Crohn''s disease. Mild extrahepatic biliary ductal dilatation. Recommend MRCP. 1.1 cm intermediate density cyst in the left mid renal pole. Recommend follow-up MR abdomen with and without contrast. Large amount of fecal retention. Electronically Signed: Ariel Ann MD at 20:42 EST ,
--- NOTE | 2024-02-29 18:55 | CT_ITS ---
EXAMINATION : Head CT w/out contrast HISTORY : Right leg weakness COMPARISON : None. TECHNIQUE : Multiple contiguous axial images were obtained from the skull base to the vertex without intravenous contrast. A radiation dose optimization technique was used for this scan. FINDINGS : There is no evidence for acute intracranial hemorrhage, mass effect, or midline shift. There is no extra-axial fluid collection. There are periventricular white matter changes consistent with chronic microvascular ischemic disease. There is sulcal widening and ventricular enlargement consistent with cerebral atrophy. There is normal sylvester-white differentiation, without CT evidence of acute ischemia or infarct. The skull base and calvarium are unremarkable. The orbits are unremarkable. The paranasal sinuses are clear. The mastoid air cells are well-aerated. The soft tissues are unremarkable. CT/Brain/Head without Contrast IMPRESSION: No acute intracranial abnormality. Chronic involutional and ischemic changes of the brain. Electronically Signed: Ariel Ann MD at 19:28 EST ,
[2024-02-29 19:01] LABS: Color, Urine Yellow (Yellow); Glucose, Dipstick Normal (Normal); Ketone-Dipstick Negative (Negative); Leukocyte Esterase-Dipstick 25 /ul (Negative); Mucous, Urine 0 SEEN /hpf (<or=2+); Nitrite-Dipstick Negative (Negative); Occult Blood-Urine Negative /ul (Negative); Protein-Dipstick 15 mg/dl (Negative); Red Blood Cells-Urine 0 SEEN /hpf (0-5); Squamous Epithelial Cells - UA 0 SEEN /hpf (5-10); Urine Bilirubin Dipstick Negative (Negative); Urine Clarity Clear (Clear); Urine Urobilinogen Normal (Normal); White Blood Cells 0 SEEN /hpf (0-5)
[2024-02-29 19:13] LABS: Bacteria RARE /hpf (None Seen)
--- NOTE | 2024-02-29 21:18 | PCM.HP.STD ---
HPI - General General Date of Admission: 02/29/24 Date of Service: 02/29/24 Chief Complaint: Abdominal pain HPI Narrative JONNA GIRON, is a 88 F who presents to the emergency room from the transitional care unit due to chief complaint of abdominal pain. Patient had a history of recent stroke and was noted to be positive for blood in her stool earlier today and Eliquis was held. Patient then complained of abdominal pain and some right sided weakness and was transferred to the emergency room for evaluation. CT scan of the head was unremarkable for new acute findings and the right side weakness was felt to be related to her previous stroke. CT of the abdomen was obtained and showed ileitis with fecal retention , and MRCP was also recommended in that report. Patient denies any fevers or chills, nausea and/or vomiting. Hemoglobin is 9.6 but that is slightly above her routine baseline. She will be admitted to general medical floor and Dr. Patterson will be consulted. [facility] Medical History Bradycardia, sinus Hyperlipidemia Aortic valve disease Cardiac arrhythmia Fibromyalgia CKD (chronic kidney disease) stage 3, GFR 30-59 ml/min Rheumatoid arthritis Osteoporosis Afib Essential (primary) hypertension Shoulder pain with history of repair of rotator cuff Sjogren syndrome Home Medications ?Medication ?Instructions ?Recorded ?Last Taken ?Type atorvastatin 40 mg tablet 40 mg PO DAILY cholesterol 09/07/23 02/21/24 History cholecalciferol (vitamin D3) 125 125 mcg PO QODAY supplement 09/07/23 02/22/24 History mcg (5,000 unit) capsule ferrous sulfate 325 mg (65 mg 325 mg PO DAILY supplement 09/07/23 02/21/24 History iron) tablet gabapentin 300 mg capsule 300 mg PO BID Nerve pain 09/07/23 02/22/24 History lisinopril 40 mg tablet 40 mg PO DAILY BP 09/07/23 02/22/24 History mecobalamin (vitamin B12) 1,000 1,000 mcg PO QMWF supplement 09/07/23 02/22/24 History mcg chewable tablet hydroxychloroquine 200 mg tablet 200 mg PO DAILY Immunosupressive 01/27/24 Unknown History furosemide 40 mg tablet 40 mg PO DAILY fluid pill #30 tabs 01/30/24 02/22/24 Rx acetaminophen 325 mg tablet 650 mg (2 x 325 mg) PO Q4H PRN PRN 02/25/24 Unknown Rx Pain 1-10 Or Fever>99.6 #0 tabs apixaban 5 mg tablet (Eliquis) 2.5 mg (1/2 x 5 mg) PO BID 02/25/24 Unknown Rx afib/prevent clots #0 tabs aspirin 81 mg chewable tablet 81 mg PO BREAKFAST blood thinner 02/25/24 Unknown Rx 30 days #0 tabs ondansetron 4 mg disintegrating 4 mg PO Q6H PRN nausea and 02/25/24 Unknown Rx tablet vomiting #30 tabs sennosides 8.6 mg-docusate sodium 2 tab PO BID PRN Constipation #0 02/25/24 Unknown Rx 50 mg tablet (Stimulant Laxative tabs Plus) Allergy/AdvReac Type Severity Reaction Status Date / Time ciprofloxacin (From Cipro) Allergy Intermediate NEEDS Verified 02/22/24 20:23 FOLLOW-UP duloxetine Allergy Intermediate NEEDS Verified 02/22/24 20:23 FOLLOW-UP ibuprofen Allergy Intermediate NEEDS Verified 02/22/24 20:23 FOLLOW-UP meloxicam Allergy Intermediate NEEDS Verified 02/22/24 20:23 FOLLOW-UP Penicillins Allergy Intermediate NEEDS Verified 02/22/24 20:23 FOLLOW-UP sulfamethoxazole (From Allergy Intermediate NEEDS Verified 02/22/24 20:23 Septra) FOLLOW-UP trimethoprim (From Octra) Allergy Intermediate NEEDS Verified 02/22/24 20:23 FOLLOW-UP Surgical History History of appendectomy History of cardiac radiofrequency ablation (RFA) S/P hernia repair Social History household members: family housing: house Smoking Status: Never smoker alcohol intake: never substance use type: does not use ROS Constitutional Constitutional: Reports weakness; Denies chills or fever(s) Eyes Eyes: Denies blurry vision ENT HEENT: Denies abnormal hearing Respiratory/Chest Respiratory/Chest: Denies cough or shortness of breath at rest Gastrointestinal Gastrointestinal: Reports abdominal pain and constipation Genitourinary Genitourinary: Denies dysuria Musculoskeletal Musculoskeletal: Denies back pain Integumentary Integumentary: Denies dry skin Neurologic Neurologic: Denies confusion Psychiatric Psychiatric: Denies anxiety Hematologic/Lymphatic Hematologic/Lymphatic: Reports anemia Vital Signs Vital Signs Vital Signs: 02/29/24 16:32 02/29/24 16:42 02/29/24 17:15 Temperature 97.8 F 98.6 F Temperature Source Temporal Temporal Pulse Rate 55 L 55 L Respiratory Rate 10 L 10 L Blood Pressure 148/52 H 148/52 H 144/68 H Blood Pressure Mean 84 84 93 Pulse Ox 100 100 Oxygen Delivery Method Room Air Room Air 02/29/24 17:42 02/29/24 19:00 Temperature 98.6 F Temperature Source Oral Pulse Rate 55 L 55 L Respiratory Rate 10 L 12 Blood Pressure 144/68 H 118/53 L Blood Pressure Mean 93 74 Pulse Ox 100 99 Oxygen Delivery Method Room Air Room Air Weight Weight: 121 lb 4.068 oz Body Mass Index (BMI) 27.2 Physical Exam Const oriented x3 General Appearance: cooperative HEENT normocephalic and head/scalp atraumatic Neck no lymphadenopathy Lymph Lymphatic: no lymphadenopathy noted Cardio regular rhythm, S1 normal heart sound and S2 normal heart sound Rate: bradycardia Heart Sounds: Negative for murmur GI normal to inspection, nondistended, normoactive bowel sounds and non-distended Palpation: tender other (Generalized); Negative for guarding or rigid Skin General Skin Exam: no breakdown Neuro no focal motor deficits and no sensory deficits noted Neuro Narrative: Slight weakness in right lower extremity compared to left Psych thought process normal, cooperative and affect normal Mood & Affect: Negative for depressed Results Lab / Micro Data 02/29/24 17:14 02/29/24 17:14 Labs: Laboratory Results - last 24 hr 02/29/24 17:14: WBC 7.9, RBC 3.06 L, Hgb 9.6 L, Hct 29.6 L, MCV 96.7, MCH 31.4, MCHC 32.4, RDW Std Deviation 56.0 H, RDW Coeff of Rohit 15.8 H, Plt Count 267, MPV 9.0, Immature Gran % (Auto) 2.400 H, Neut % (Auto) 76.8 H, Lymph % (Auto) 10.9 L, [place] % (Auto) 7.0, Eos % (Auto) 2.4, Baso % (Auto) 0.5, Absolute Neuts (auto) 6.0, Absolute Lymphs (auto) 0.86, Nucleated RBC % 0, Sodium 137, Potassium 4.6, Chloride 107, Carbon Dioxide 24.0, Anion Gap 7, BUN 39 H, Creatinine 1.55 H, Estim Creat Clear Calc 20.28, Est GFR (MDRD) Af Amer 41 L, Est GFR (MDRD) Non-Af 34 L, BUN/Creatinine Ratio 25.2 H, Glucose 105, Calcium 8.8, Total Bilirubin 0.30, AST 33, ALT 59 H, Alkaline Phosphatase 81, Troponin I High Sens 22, Total Protein 6.5, Albumin 2.9 L, Globulin 3.6, Albumin/Globulin Ratio 0.8 L, Lipase 31 02/29/24 18:53: Urine Color Yellow, Urine Clarity Clear, Urine pH 6.0, Ur Specific [place] 1.010, Urine Protein 15 H, Urine Glucose (UA) Normal, Urine Ketones Negative, Urine Occult Blood Negative, Urine Nitrite Negative, Urine Bilirubin Negative, Urine Urobilinogen Normal, Ur Leukocyte Esterase 25 H, Urine RBC 0 SEEN, Urine WBC 0 SEEN, Ur Squamous Epith Cells 0 SEEN, Urine Bacteria RARE, Urine Mucus 0 SEEN Imaging Radiology Impression Chest X-Ray 02/29/24 17:30 IMPRESSION: No acute radiographic abnormalities. Electronically Signed: Ariel Ann MD at 18:21 EST , Abdomen/Pelvis CT 02/29/24 18:55 IMPRESSION: Findings suspicious for terminal ileitis which is nonspecific. One possible etiology is Crohn''s disease. Mild extrahepatic biliary ductal dilatation. Recommend MRCP. 1.1 cm intermediate density cyst in the left mid renal pole. Recommend follow-up MR abdomen with and without contrast. Large amount of fecal retention. Electronically Signed: Ariel Ann MD at 20:42 EST , Brain CT 02/29/24 18:55 IMPRESSION: No acute intracranial abnormality. Chronic involutional and ischemic changes of the brain. Electronically Signed: Ariel Ann MD at 19:28 EST , Assessment & Plan Assessment/Plan (1) Iron deficiency anemia: (2) Renal failure: (3) Hyperlipidemia: (4) Essential (primary) hypertension: (5) Abdominal pain: PLAN: Plan 1 abdominal pain?admit patient to general medical floor, initiate PPI therapy with Protonix and continue to hold anticoagulation. Consult Dr. Patterson gastroenterology to consider patient for MRCP as per recommendation and CT scan report. Will start IV fluid normal saline at a rate of 75 cc/h and make n.p.o. pending evaluation. Will add tramadol as needed for pain and Tylenol 2. Essential hypertension?will hold medications while n.p.o. and continue to monitor and address accordingly. 3. Hyperlipidemia?hold statin medication for now and will restart when patient is able to take p.o. 4. History of renal disease?repeat BMP in a.m. 5. DVT prophylaxis?SCDs Charges/Coding Visit Charges Inpatient E&M: 58301 Init Hosp L2
--- NOTE | 2024-02-29 22:02 | CON.PCM.GI_ITS ---
HPI Consult Data Date of Consult: 02/29/24 HPI Narrative Reason for Consultation: Abdominal pain, GI bleeding anemia HPI Narrative: JONNA GIRON, is a 88 F who presents to the emergency room from the transitional care unit due to chief complaint of abdominal pain. Patient had a history of recent stroke and was noted to be positive for blood in her stool earlier today and Eliquis was held. Patient then complained of abdominal pain and some right sided weakness and was transferred to the emergency room for evaluation. CT scan of the head was unremarkable for new acute findings and the right side weakness was felt to be related to her previous stroke. CT of the abdomen was obtained and showed ileitis with fecal retention , and MRCP was also Ordered. The report is pending .Patient denies any fevers or chills, nausea and/or vomiting. Hemoglobin is 9.6 but that is slightly above her routine baseline. 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 CVA (cerebral vascular accident) 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, sinus Hyperlipidemia Aortic valve disease Cardiac arrhythmia Fibromyalgia CKD (chronic kidney disease) stage 3, GFR 30-59 ml/min Rheumatoid arthritis Osteoporosis Afib Essential (primary) hypertension Shoulder pain with history of repair of rotator cuff Sjogren syndrome Home Medications ?Medication ?Instructions ?Recorded ?Last Taken ?Type atorvastatin 40 mg tablet 40 mg PO DAILY cholesterol 09/07/23 02/21/24 History cholecalciferol (vitamin D3) 125 125 mcg PO QODAY supplement 09/07/23 02/22/24 History mcg (5,000 unit) capsule ferrous sulfate 325 mg (65 mg 325 mg PO DAILY supplement 09/07/23 02/21/24 History iron) tablet gabapentin 300 mg capsule 300 mg PO BID Nerve pain 09/07/23 02/22/24 History lisinopril 40 mg tablet 40 mg PO DAILY BP 09/07/23 02/22/24 History mecobalamin (vitamin B12) 1,000 1,000 mcg PO QMWF supplement 09/07/23 02/22/24 History mcg chewable tablet hydroxychloroquine 200 mg tablet 200 mg PO DAILY Immunosupressive 01/27/24 Unknown History furosemide 40 mg tablet 40 mg PO DAILY fluid pill #30 tabs 01/30/24 02/22/24 Rx acetaminophen 325 mg tablet 650 mg (2 x 325 mg) PO Q4H PRN PRN 02/25/24 Unknown Rx Pain 1-10 Or Fever>99.6 #0 tabs apixaban 5 mg tablet (Eliquis) 2.5 mg (1/2 x 5 mg) PO BID 02/25/24 Unknown Rx afib/prevent clots #0 tabs aspirin 81 mg chewable tablet 81 mg PO BREAKFAST blood thinner 02/25/24 Unknown Rx 30 days #0 tabs ondansetron 4 mg disintegrating 4 mg PO Q6H PRN nausea and 02/25/24 Unknown Rx tablet vomiting #30 tabs sennosides 8.6 mg-docusate sodium 2 tab PO BID PRN Constipation #0 02/25/24 Unknown Rx 50 mg tablet (Stimulant Laxative tabs Plus) Allergy/AdvReac Type Severity Reaction Status Date / Time ciprofloxacin (From Cipro) Allergy Intermediate NEEDS Verified 02/22/24 20:23 FOLLOW-UP duloxetine Allergy Intermediate NEEDS Verified 02/22/24 20:23 FOLLOW-UP ibuprofen Allergy Intermediate NEEDS Verified 02/22/24 20:23 FOLLOW-UP meloxicam Allergy Intermediate NEEDS Verified 02/22/24 20:23 FOLLOW-UP Penicillins Allergy Intermediate NEEDS Verified 02/22/24 20:23 FOLLOW-UP sulfamethoxazole (From Allergy Intermediate NEEDS Verified 02/22/24 20:23 ) FOLLOW-UP trimethoprim (From Septra) Allergy Intermediate NEEDS Verified 02/22/24 20:23 FOLLOW-UP Surgical History History of appendectomy History of cardiac radiofrequency ablation (RFA) S/P hernia repair Social History household members: family housing: house Smoking Status: Never smoker alcohol intake: never substance use type: does not use ROS Constitutional Constitutional: Denies fatigue, fever(s), poor appetite, weight gain or weight loss Gastrointestinal Gastrointestinal: Denies belching, bloating, change in bowel habits, change in stool character, chewing difficulty, coffee ground emesis, constipation, cramping, diarrhea, dyspepsia, dysphagia, early satiety, excessive flatus, fecal incontinence, heartburn, hematemesis, hematochezia, hemorrhoids, loose stools, melena, nausea, odynophagia, rectal bleeding, tenesmus, vomiting or weight changes Physical Exam Const alert, oriented x3 and no apparent distress Constitutional Narrative: frail General Appearance: cooperative HEENT normocephalic, head/scalp atraumatic, moist oral mucous membranes and oropharynx normal Eyes PERRL and EOMs intact bilaterally Neck no lymphadenopathy and supple Lymph Lymphatic: no lymphadenopathy noted and no lymphedema noted Resp normal respiratory effort, normal air movement and clear to auscultation bilaterally Cardio regular rate, regular rhythm, S1 normal heart sound, S2 normal heart sound and no murmurs GI normal to inspection, nondistended, normoactive bowel sounds and soft to palpation GI Narrative: mild epigastric and RUQ tenderness, no guarding or rebound tenderness. Extremity normal capillary refill, no clubbing, cyanosis or edema and no calf tenderness General Extremity: no tenderness to palpation of joints or extremities Skin General Skin Exam: no breakdown Neuro CN's II-XII intact bilaterally, no focal motor deficits and no sensory deficits noted Motor Exam: strength 5/5 throughout and general weakness Psych thought process normal and cooperative Appearance: appropriate Lab / Micro Data 03/01/24 07:12 03/01/24 07:12 Labs: Laboratory Results - last 24 hr 02/29/24 17:14: WBC 7.9, RBC 3.06 L, Hgb 9.6 L, Hct 29.6 L, MCV 96.7, MCH 31.4, MCHC 32.4, RDW Std Deviation 56.0 H, RDW Coeff of Rohit 15.8 H, Plt Count 267, MPV 9.0, Immature Gran % (Auto) 2.400 H, Neut % (Auto) 76.8 H, Lymph % (Auto) 10.9 L , [place] % (Auto) 7.0, Eos % (Auto) 2.4, Baso % (Auto) 0.5, Absolute Neuts (auto) 6.0, Absolute Lymphs (auto) 0.86, Nucleated RBC % 0, Sodium 137, Potassium 4.6, Chloride 107, Carbon Dioxide 24.0, Anion Gap 7, BUN 39 H, Creatinine 1.55 H, Estim Creat Clear Calc 20.28, Est GFR (MDRD) Af Amer 41 L, Est GFR (MDRD) Non-Af 34 L, BUN/Creatinine Ratio 25.2 H, Glucose 105, Calcium 8.8, Total Bilirubin 0.30, AST 33, ALT 59 H, Alkaline Phosphatase 81, Troponin I High Sens 22, Total Protein 6.5, Albumin 2.9 L, Globulin 3.6, Albumin/Globulin Ratio 0.8 L, Lipase 31 02/29/24 18:53: Urine Color Yellow, Urine Clarity Clear, Urine pH 6.0, Ur Specific [place] 1.010, Urine Protein 15 H, Urine Glucose (UA) Normal, Urine Ketones Negative, Urine Occult Blood Negative, Urine Nitrite Negative, Urine Bilirubin Negative, Urine Urobilinogen Normal, Ur Leukocyte Esterase 25 H, Urine RBC 0 SEEN, Urine WBC 0 SEEN, Ur Squamous Epith Cells 0 SEEN, Urine Bacteria RARE, Urine Mucus 0 SEEN 03/01/24 07:12: WBC 7.8, RBC 2.83 L, Hgb 8.5 L, Hct 27.6 L, MCV 97.5, MCH 30.0, MCHC 30.8 L, RDW Std Deviation 56.6 H, RDW Coeff of Rohit 15.8 H, Plt Count 226, MPV 8.6, Immature Gran % (Auto) 1.000 H, Neut % (Auto) 76.8 H, Lymph % (Auto) 8.7 L, [place] % (Auto) 9.3, Eos % (Auto) 3.7, Baso % (Auto) 0.5, Absolute Neuts (auto) 6.0, Absolute Lymphs (auto) 0.68 L, Nucleated RBC % 0, Sodium 141, P otassium 5.3 H, Chloride 113 H, Carbon Dioxide 23.0, Anion Gap 5, BUN 33 H, C reatinine 1.31 H, Estim Creat Clear Calc 21.46, Est GFR (MDRD) Af Amer 49 L, Est GFR (MDRD) Non-Af 41 L, BUN/Creatinine Ratio 25.2 H, Glucose 77, Calcium 7.9 L, Magnesium 2.2 Imaging Radiology Impression Chest X-Ray 02/29/24 17:30 IMPRESSION: No acute radiographic abnormalities. Electronically Signed: Ariel Ann MD at 18:21 EST , Abdomen/Pelvis CT 02/29/24 18:55 IMPRESSION: Findings suspicious for terminal ileitis which is nonspecific. One possible etiology is Crohn''s disease. Mild extrahepatic biliary ductal dilatation. Recommend MRCP. 1.1 cm intermediate density cyst in the left mid renal pole. Recommend follow-up MR abdomen with and without contrast. Large amount of fecal retention. Electronically Signed: Ariel Ann MD at 20:42 EST , Brain CT 02/29/24 18:55 IMPRESSION: No acute intracranial abnormality. Chronic involutional and ischemic changes of the brain. Electronically Signed: Ariel Ann MD at 19:28 EST , Assessment & Plan Assessment/Plan (1) Abdominal pain: PLAN: Plan 88-year-old with acute onset abdominal pain discovered to have decreasing hemoglobin. Her CT scan abdomen pelvis showed dilated common bile ducts. Her LFTs were mildly elevated. Awaiting MRCP. Because of her anemia and abdominal pain. We will wait on the MRCP and we will perform an upper endoscopy. * Her mainly in the epigastric and right upper quadrant region. * CT of the abdomen showed dilatation of extrahepatic bile ducts. * MRCP ordered * Being hydrated with IV fluid normal saline at 75 cc per/hr * On IV pantoprazole 4 mg twice daily * So focal blood is also positive. * She will undergo an EGD and possibly colonoscopy plus or minus ERCP. She was explained alternatives, benefits, risk including withstanding bleeding, infection, sepsis, perforation, need for surgery . She will have an ASA of 3. * Charges/Coding Visit Charges Inpatient E&M: 65155 Init Hosp L3
[2024-02-29] MEDS: Morphine 2 MG/ML Syringe 1 MG IV (23:37)
[2024-02-29] MEDS: 0.9% Saline Lock 10 ML Syringe IV (23:38)
[2024-02-29] MEDS: Pantoprazole Sodium 40 MG in 0.9% Normal Saline (100mL MB+) 100 ML 330 MG IV (23:38)
[2024-02-29] MEDS: 0.9% Normal Saline (1000mL) 1,000 ML 75 ML IV (23:38)
[2024-03-01] VITALS (12 sets, daily range): BP systolic 88–134; BP diastolic 32–73; PULSE 50–60; RESP 16–18; TEMP 36.1–37.4; O2SAT 94–100; BMI 21.9
[2024-03-01 07:24] LABS: Absolute Lymphocyte Count 0.68 X10^3/uL (0.83-4.51); Basophil# 0.04 X10^3/uL; Basophil% 0.5 % (0-1); Eosinophil# 0.29 X10^3/uL; Eosinophils% 3.7 % (0-5); Hematocrit 27.6 % (37-47); Hemoglobin 8.5 g/dL (12.0-15.0); Lymphocyte # 0.68 X10^3/ul (0.83-4.51); Lymphocyte % 8.7 % (19-41); Mean Corp Hgb Conc 30.8 g/dL (32-36); Mean Corpuscular Volume 97.5 fL (81-99); Mean Platelet Vol. 8.6 fl (6.2-12.0); Monocyte# 0.73 X10^3/uL; Monocyte% 9.3 % (0-10); NRBC Flagged by Analyzer 0 % (0-5); Neutrophil % 76.8 % (47-70); Platelet Count 226 K/mm3 (150-450); RBC Distribution Width CV 15.8 % (11.6-14.6); RBC Distribution Width SD 56.6 fl (35.1-43.9); Red Blood Count 2.83 M/mm3 (4.2-5.4); White Blood Count 7.8 K/mm3 (4.4-11.0)
--- NOTE | 2024-03-01 07:34 | MRI_ITS ---
Abdominal MRI and MRCP without contrast 03/01/2024 12:54 PM COMPARISON: CT 02/29/2024 CLINICAL HISTORY: dilated bile ducts, abdomen pain TECHNIQUE: Multiplanar and multisequence MR images of the abdomen were obtained with MRCP sequence. Three-dimensional post-processing reconstructions were performed. FINDINGS: Liver: Unremarkable Gallbladder: Multiple small T2 dark stones are seen. Bile Ducts: Mild dilatation of the common bile duct measuring up to 8 mm in diameter. Pancreas: No main pancreatic duct dilatation. There is a 1.2 cm well-circumscribed T2 hyperintense cystic lesion in the tail of the pancreas. There is a similar smaller cystic lesion in the body of the pancreas measuring 5 mm. Cannot assess for enhancement due to absence of IV contrast. Spleen: Unremarkable Adrenal Glands: Unremarkable Kidneys: 2.3 cm T1 hypointense/T2 hyperintense cysts in the left mid renal pole. GI Tract: Unremarkable Lymphadenopathy: Absent Ascites: Absent Bones: No suspicious lesions MRI/MRCP Abdomen without Contrast IMPRESSION: Cholelithiasis with mild extrahepatic biliary ductal dilatation and no obvious stones, mass or stricture. This could be secondary to a recently passed or occult stone. Consider ERCP. Two T2 hyperintense cystic lesions in the pancreas, one in the body measuring 5 mm while the other in the tail measuring 1.2 cm. No main pancreatic duct dilatation. 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 Per ACR white paper criteria, no follow-up recommended to patient''s advanced age. 2.3 cm cyst in the left mid renal pole is indeterminate without IV contrast. As was suggested in the CT report, postcontrast images are recommended. Electronically Signed: Ariel Ann MD at 17:15 EST ,
[2024-03-01 07:49] LABS: Anion Gap 5 (5-15); BUN 33 mg/dL (7-18); BUN/Creat Ratio 25.2 RATIO (10-20); Calcium,Total 7.9 mg/dL (8.5-10.1); Chloride 113 mmol/L (98-107); Creatinine, Serum 1.31 mg/dL (0.55-1.02); EST Glomerular Filtration Rate 41 mL/min (>60); Est Glom Filt Rate - Afr Amer 49 mL/min (>60); Estimated Creatinine Clearance 21.46 ml/min; Glucose 77 mg/dL (74-106); Magnesium 2.2 mg/dL (1.6-2.6); Potassium 5.3 mmol/L (3.5-5.1); Sodium Level 141 mmol/L (136-145)
[2024-03-01] MEDS: Pantoprazole Sodium 40 MG in 0.9% Normal Saline (100mL MB+) 100 ML 330 MG IV ×2 (09:16→21:38)
--- NOTE | 2024-03-01 14:47 | PN_ITS ---
Subjective Subjective Patient seen and examined. She still complained of abdominal pain. She denied any dizziness, fever, chills, nausea, vomiting or any ohher symptoms. Review of systems is otherwise negative. Objective Data Objective Data Vital Signs: Vital Signs Temp Pulse Resp BP Pulse Ox O2 Del Method 99.3 F H 57 L 18 108/50 L 99 Room Air 03/01/24 14:37 03/01/24 14:37 03/01/24 14:37 03/01/24 14:37 03/01/24 14:37 03/01/24 14:37 Oxygen Delivery Method Room Air Weight: 97 lb 3.582 oz Body Mass Index (BMI) 21.8 Intake & Output: Intake and Output for Last 24 Hours 02/28/24 02/29/24 03/01/24 23:59 23:59 23:59 Intake Total 500 / 610 220 / 220 Balance 500 / 610 220 / 220 Lab / Micro Data 03/01/24 07:12 03/01/24 07:12 Labs: Laboratory Results - last 24 hr 02/29/24 17:14: WBC 7.9, RBC 3.06 L, Hgb 9.6 L, Hct 29.6 L, MCV 96.7, MCH 31.4, MCHC 32.4, RDW Std Deviation 56.0 H, RDW Coeff of Rohit 15.8 H, Plt Count 267, MPV 9.0, Immature Gran % (Auto) 2.400 H, Neut % (Auto) 76.8 H, Lymph % (Auto) 10.9 L , [place] % (Auto) 7.0, Eos % (Auto) 2.4, Baso % (Auto) 0.5, Absolute Neuts (auto) 6.0, Absolute Lymphs (auto) 0.86, Nucleated RBC % 0, Sodium 137, Potassium 4.6, Chloride 107, Carbon Dioxide 24.0, Anion Gap 7, BUN 39 H, Creatinine 1.55 H, Estim Creat Clear Calc 20.28, Est GFR (MDRD) Af Amer 41 L, Est GFR (MDRD) Non-Af 34 L, BUN/Creatinine Ratio 25.2 H, Glucose 105, Calcium 8.8, Total Bilirubin 0.30, AST 33, ALT 59 H, Alkaline Phosphatase 81, Troponin I High Sens 22, Total Protein 6.5, Albumin 2.9 L, Globulin 3.6, Albumin/Globulin Ratio 0.8 L, Lipase 31 02/29/24 18:53: Urine Color Yellow, Urine Clarity Clear, Urine pH 6.0, Ur Specific [place] 1.010, Urine Protein 15 H, Urine Glucose (UA) Normal, Urine Ketones Negative, Urine Occult Blood Negative, Urine Nitrite Negative, Urine Bilirubin Negative, Urine Urobilinogen Normal, Ur Leukocyte Esterase 25 H, Urine RBC 0 SEEN, Urine WBC 0 SEEN, Ur Squamous Epith Cells 0 SEEN, Urine Bacteria RARE, Urine Mucus 0 SEEN 03/01/24 07:12: WBC 7.8, RBC 2.83 L, Hgb 8.5 L, Hct 27.6 L, MCV 97.5, MCH 30.0, MCHC 30.8 L, RDW Std Deviation 56.6 H, RDW Coeff of Rohit 15.8 H, Plt Count 226, MPV 8.6, Immature Gran % (Auto) 1.000 H, Neut % (Auto) 76.8 H, Lymph % (Auto) 8.7 L, [place] % (Auto) 9.3, Eos % (Auto) 3.7, Baso % (Auto) 0.5, Absolute Neuts (auto) 6.0, Absolute Lymphs (auto) 0.68 L, Nucleated RBC % 0, Sodium 141, P otassium 5.3 H, Chloride 113 H, Carbon Dioxide 23.0, Anion Gap 5, BUN 33 H, C reatinine 1.31 H, Estim Creat Clear Calc 21.46, Est GFR (MDRD) Af Amer 49 L, Est GFR (MDRD) Non-Af 41 L, BUN/Creatinine Ratio 25.2 H, Glucose 77, Calcium 7.9 L, Magnesium 2.2 Radiography Diagnostic Testing: Radiology Impression Chest X-Ray 02/29/24 17:30 IMPRESSION: No acute radiographic abnormalities. Electronically Signed: Ariel Ann MD at 18:21 EST , Abdomen/Pelvis CT 02/29/24 18:55 IMPRESSION: Findings suspicious for terminal ileitis which is nonspecific. One possible etiology is Crohn''s disease. Mild extrahepatic biliary ductal dilatation. Recommend MRCP. 1.1 cm intermediate density cyst in the left mid renal pole. Recommend follow-up MR abdomen with and without contrast. Large amount of fecal retention. Electronically Signed: Ariel Ann MD at 20:42 EST , Brain CT 02/29/24 18:55 IMPRESSION: No acute intracranial abnormality. Chronic involutional and ischemic changes of the brain. Electronically Signed: Ariel Ann MD at 19:28 EST , Physical Exam Const alert, oriented x3 and no apparent distress Constitutional Narrative: frail General Appearance: cooperative HEENT normocephalic, head/scalp atraumatic, moist oral mucous membranes and oropharynx normal Eyes PERRL and EOMs intact bilaterally Neck no lymphadenopathy and supple Lymph Lymphatic: no lymphadenopathy noted and no lymphedema noted Resp normal respiratory effort, normal air movement and clear to auscultation bilaterally Cardio regular rate, regular rhythm, S1 normal heart sound, S2 normal heart sound and no murmurs GI normal to inspection, nondistended, normoactive bowel sounds and soft to palpation GI Narrative: mild epigastric and RUQ tenderness, no guarding or rebound tenderness. Extremity normal capillary refill, no clubbing, cyanosis or edema and no calf tenderness General Extremity: no tenderness to palpation of joints or extremities Skin General Skin Exam: no breakdown Neuro CN's II-XII intact bilaterally, no focal motor deficits and no sensory deficits noted Motor Exam: strength 5/5 throughout and general weakness Psych thought process normal and cooperative Appearance: appropriate Assessment & Plan Assessment/Plan (1) Abdominal pain: PLAN: Plan # Abdominal pain * Patient admitted with complains of abdominal pain. Is mainly in the epigastric and right upper quadrant region. Jara sign was negative today. * CT of the abdomen showed dilatation of extrahepatic bile ducts. * MRCP ordered and GI consulted. Currently NPO * Being hydrated with IV fluid normal saline at 75 cc per/hr * On IV pantoprazole 4 mg twice daily * So focal blood is also positive. GI consulted. * #Hyperlipidemia: Statins on hold as she is NPO. #CKD stage III: Creatinine at baseline. Will monitor. #History of paroxysmal A-fib: On amiodarone and Eliquis. Hold amiodarone due to effect on liver. On Eliquis #Secondary pulmonary hypertension: * Had known pulmonary artery systolic pressure of 50 mmHg from previous echoes. * Likely due to underlying heart failure. * Will monitor. #History of heart failure preserved ejection fraction: Not in exacerbation. Breathing treatments bronchodilators. On Lasix. #History of peripheral vascular disease * S/p peripheral vascular intervention but does not know exactly what was done as it was done in [place]. Follow-up with vascular surgery on outpatient basis. * * #DVT prophylaxis: SCDs. Charges/Coding Visit Charges Inpatient E&M: 76216 Subs Hosp L2
[2024-03-01] MEDS: 0.9% Normal Saline (1000mL) 1,000 ML 75 ML IV (14:48)
[2024-03-01] MEDS: Morphine 2 MG/ML Syringe 1 MG IV (14:48)
--- NOTE | 2024-03-01 14:58 | CHAPLAIN ---
Type of Pastoral Visit ___ Initial Visit ___ Follow-up Visit ___ On-call Visit ___ General Patient Visit ___ Spiritual Assessment ___ Family Conference ___ Bereavement ___ Rapid Response ___ Code Blue ___ Other (describe below) Pastoral Care Referral From ___ Patient ___ Family ___ Nurse ___ Physician ___ Application Software Engineer ___ [employer] Set Up Operator ___ Other (describe below) Sacrament/Intervention ___ Active listening ___ Anointing ___ Church ___ Bereavement ___ Communion ___ Karlene exploration ___ ___ Life review ___ Prayer ___ Reconciliation ___ Sacrament of Sick ___ Supportive presence ___ Wedding ___ Other (describe below) Pastoral Comments patient was not in the room at time of visit
--- NOTE | 2024-03-01 16:18 | CASEMGMT ---
Social Work- SW met with pt to conduct SDOH assessment. Pt reports no issues. Pt reports that after her spouse of 66 years , pt has lived with her daughter. Pt granddaughter is POA. Pt also has a son that is supportive as well. Pt reports that she lost a baby after due to an incubator malfunction, lost a son at age 22 due to an accident, and lost a daughter at age 16 due to being in a vehicle that was hit by a train. Pt was very reflective of her life and reports that she wants to get better and be independent again, but is concerned about all of the recent health issues that she has been having. Pt reports anxiety regarding scope today. SW provided support and guided pt in processing anxiousness. SW discussed discharge planning with pt; pt plans to return to TCU. SW remains available to follow. Plan: TCU; skilled level of care, precert pending ANSELMO Carter
--- NOTE | 2024-03-01 16:55 | PCM.PRE.AN2 ---
ASA Classification* ASA Classification ASA Classification: 3 Assessment & Plan Anesthesia* Anesthesia Assessment Anesthesia Assessment: Discussed sedation and/or anesthesia options, risks, benefits, and alternatives with patient/parents/legal guardian/POA. Questions invited. The patient/parents/legal guardian/POA seems to understand and agrees to proceed with anesthesia plan. Reviewed the physical assessment, medical history, allergy history and patient home medications list prior to surgery/procedure/anesthetic and documented any changes. Performed airway and anesthesia risk assessments. Anesthesia Type Anesthesia Type: MAC History Source History Obtained from:: Patient and Chart Anesthesia Focused Assessment* Temperature: 99.3 F Pulse Rate: 57 Blood Pressure: 108/50 Respiratory Rate: 18 Pulse Ox: 99 Oxygen Delivery Method: Room Air Airway Assessment Mouth opens: 2 cm Mallampati Score: IV Teeth Condition: Dentures (Patient has full upper dentures), Missing (Patient has multiple missing teeth.) and Partial (Patient has partial lower denture which is out.) Neck Range of motion (ROM): Limited ROM Focused Labs Anesthesia Preop lab: CBC WBC 7.8 K/mm3 (4.4-11.0) 03/01/24 07:12 RBC 2.83 M/mm3 (4.2-5.4) L 03/01/24 07:12 Hgb 8.5 g/dL (12.0-15.0) L 03/01/24 07:12 Hct 27.6 % (37-47) L 03/01/24 07:12 Plt Count 226 K/mm3 (150-450) 03/01/24 07:12 CHEMISTRY Potassium 5.3 mmol/L (3.5-5.1) H 03/01/24 07:12 Sodium 141 mmol/L (136-145) 03/01/24 07:12 Magnesium 2.2 mg/dL (1.6-2.6) 03/01/24 07:12 Phosphorus 4.5 mg/dL (2.5-4.9) 02/24/24 05:40 BUN 33 mg/dL (7-18) H 03/01/24 07:12 Creatinine 1.31 mg/dL (0.55-1.02) H 03/01/24 07:12 Glucose 77 mg/dL (74-106) 03/01/24 07:12 POC Glucose 97 mg/dL (74-106) 02/29/24 16:06 TSH 3.370 uIU/mL (0.358-3.740) 02/23/24 06:04 COAG PT 16.7 SECONDS (11.7-14.9) H 02/25/24 05:09 Pre-Assessment Diagnosis/Proposed Procedure Planned Operative Procedure(s): Esophagogastroduodenoscopy Anesthesia History Anesthesia History - latex spooler: Anesthesia History - latex spooler Hx Hospitalization Any Problems With Anesthesia No 03/01/24 12:29 Cholinesterase deficiency No 03/01/24 12:29 You/Your Family Experience No 03/01/24 12:29 fever (hyperthermia) with Relationship Recent Exposure to Contagious No 03/01/24 12:29 Disease Does patient have nerve No 03/01/24 12:29 stimulator Patient instructed to have No 03/01/24 12:29 device shut off --Does patient have Pacemaker No 03/01/24 12:29 or ICD? When Was Last Pacemaker Check QUESTION #4 FULL TEXT: You/Your Family Experience fever (hyperthermia) with Anesthesia Last Oral Intake Last Oral intake: Last Oral Intake NPO since 00:00 03/01/24 12:29 Meds taken in AM with sips of No 03/01/24 12:29 water? Meds patient instructed to take am of surgery PONV PONV - latex spooler: PONV - latex spooler Female HX of Motion Sickness HX of N/V After Surgery Non-Smoker Duration of Surgery greater than 60 minutes Number of Risk Factors PONV Score Height & Weight Height & Weight: Anesthesia: Height & Weight Height 4 ft 8 in 03/01/24 15:32 Weight: 44.1 kg 03/01/24 15:32 Body Mass Index (BMI) 21.9 03/01/24 12:29 Respiratory Assessment Respiratory Assessment - latex spooler: Respiratory Tract Infection Hx - latex spooler Hx Respiratory Tract Infection No 03/01/24 12:29 STOP Sleep Apnea STOP Sleep Apnea - latex spooler: STOP Sleep Apnea - latex spooler Hx Hypertension Yes 02/29/24 22:26 Hx Sleep Apnea No 02/29/24 22:26 CPAP BIPAP Do you snore loudly (louder No 02/29/24 22:26 than talking or can be heard Do you often feel tired/ Yes 02/29/24 22:26 fatigued/ sleepy during daytime? Has anyone observed you stop No 02/29/24 22:26 breathing during sleep? STOP Results Positive 02/29/24 22:26 QUESTION #5 FULL TEXT : Do you snore loudly (louder than talking or can be heard through closed doors)? 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 Specify any problems Hx of Preganancy in last 3 No 02/29/24 22:26 Months Nurse Filling Out Transfusion EVIZZO 02/29/24 22:26 & Questions: Date: 02/29/24 02/29/24 22:26 Time: 22:41 02/29/24 22:26 Patient unable to answer at this time (ie. confused, unrespo /Reproduction History /Reproductive History - latex spooler: /Reproductive Hx- latex spooler Hx Now No 03/01/24 12:29 Gestational Age (in weeks): EDC: Hx Hx Para Hx Section SAB No 03/01/24 12:29 Active Medications Active Medications: Current Medications Generic Name Dose Route Start Last Admin Trade Name Freq PRN Reason Stop Dose Admin Acetaminophen 650 mg 02/29/24 22:28 Acetaminophen 325 Mg Tablet PO Q4H PRN PRN Pain 1-10 Or Fever>99.6 Cholecalciferol 125 mcg 03/03/24 10:00 Cholecalciferol (Vit D3) 125 Mcg Capsule (5,000 Units) PO QODAY SAY Cyanocobalamin 1,000 mcg 03/02/24 10:00 Cyanocobalamin 500 Mcg Tablet PO MoWeFr@1000 SAY Ferrous Sulfate 325 mg 03/02/24 08:00 Ferrous S[facility]ate [facility] Furosemide 40 mg 03/02/24 10:00 Furosemide 40 Mg Tablet PO DAILY [facility] Protocol Gabapentin 300 mg 03/01/24 22:00 Gabapentin 300 Mg Capsule PO BID [facility] Hydroxychloroquine Sulfate 200 mg 03/02/24 10:00 Hydroxychloroquine 200 Mg Tablet PO DAILY [facility] Pantoprazole Sodium 40 mg/ 110 mls @ 330 mls/hr 02/29/24 22:28 03/01/24 09:38 Sodium Chloride IV Infused Q12 [facility] Infusion Sodium Chloride 1,000 mls @ 75 mls/hr 02/29/24 23:15 03/01/24 16:10 IV 03/02/24 01:54 0 mls/hr .[id number] [facility] Infusion Morphine Sulfate 1 mg 02/29/24 22:28 03/01/24 14:48 Morphine 2 Mg/Ml Syringe IV 1 mg Q3H PRN PRN Administration Pain Score 6-10 Nutritional Formula (Lactose Free) 120 ml 03/01/24 10:00 03/01/24 16:05 Ensure Plus High Protein 120 Ml Liquid PO Not Given 4X/DAY [facility] Ondansetron HCl 4 mg 02/29/24 23:55 Ondansetron 4 Mg/2 Ml Vial IV Q8H PRN PRN NAUSEA/VOMITING Senna/Docusate Sodium 2 tablet 03/01/24 14:56 Senna/Docusate Sodium 1 Tablet PO BID PRN Constipation Sodium Chloride 10 - 40 ml 02/29/24 22:26 02/29/24 23:38 0.9% Saline Lock 10 Ml Syringe IV 10 ml UD PRN Administration SALINE FLUSH PFSH Medical History Debility CKD stage 3b, 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 CVA (cerebral vascular accident) 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, sinus Hyperlipidemia Aortic valve disease Cardiac arrhythmia Fibromyalgia CKD (chronic kidney disease) stage 3, GFR 30-59 ml/min Rheumatoid arthritis Osteoporosis Afib Essential (primary) hypertension Shoulder pain with history of repair of rotator cuff Sjogren syndrome Home Medications ?Medication ?Instructions ?Recorded ?Last Taken ?Type atorvastatin 40 mg tablet 40 mg PO DAILY cholesterol 09/07/23 02/21/24 History cholecalciferol (vitamin D3) 125 125 mcg PO QODAY supplement 09/07/23 02/22/24 History mcg (5,000 unit) capsule ferrous sulfate 325 mg (65 mg 325 mg PO DAILY supplement 09/07/23 02/21/24 History iron) tablet gabapentin 300 mg capsule 300 mg PO BID Nerve pain 09/07/23 02/22/24 History lisinopril 40 mg tablet 40 mg PO DAILY BP 09/07/23 02/22/24 History mecobalamin (vitamin B12) 1,000 1,000 mcg PO QMWF supplement 09/07/23 02/22/24 History mcg chewable tablet hydroxychloroquine 200 mg tablet 200 mg PO DAILY Immunosupressive 01/27/24 Unknown History furosemide 40 mg tablet 40 mg PO DAILY fluid pill #30 tabs 01/30/24 02/22/24 Rx acetaminophen 325 mg tablet 650 mg (2 x 325 mg) PO Q4H PRN PRN 02/25/24 Unknown Rx Pain 1-10 Or Fever>99.6 #0 tabs apixaban 5 mg tablet (Eliquis) 2.5 mg (1/2 x 5 mg) PO BID 02/25/24 Unknown Rx afib/prevent clots #0 tabs aspirin 81 mg chewable tablet 81 mg PO BREAKFAST blood thinner 02/25/24 Unknown Rx 30 days #0 tabs ondansetron 4 mg disintegrating 4 mg PO Q6H PRN nausea and 02/25/24 Unknown Rx tablet vomiting #30 tabs sennosides 8.6 mg-docusate sodium 2 tab PO BID PRN Constipation #0 02/25/24 Unknown Rx 50 mg tablet (Stimulant Laxative tabs Plus) Allergy/AdvReac Type Severity Reaction Status Date / Time ciprofloxacin (From Cipro) Allergy Intermediate NEEDS Verified 02/22/24 20:23 FOLLOW-UP duloxetine Allergy Intermediate NEEDS Verified 02/22/24 20:23 FOLLOW-UP ibuprofen Allergy Intermediate NEEDS Verified 02/22/24 20:23 FOLLOW-UP meloxicam Allergy Intermediate NEEDS Verified 02/22/24 20:23 FOLLOW-UP Penicillins Allergy Intermediate NEEDS Verified 02/22/24 20:23 FOLLOW-UP sulfamethoxazole (From Allergy Intermediate NEEDS Verified 02/22/24 20:23 Octra) FOLLOW-UP trimethoprim (From Septra) Allergy Intermediate NEEDS Verified 02/22/24 20:23 FOLLOW-UP Surgical History History of appendectomy History of cardiac radiofrequency ablation (RFA) S/P hernia repair Social History household members: family housing: house Smoking Status: Never smoker alcohol intake: never substance use type: does not use Review of Systems (Anesthesia) ROS Narrative System reviewed and no additional complaints, except as documented.
--- NOTE | 2024-03-01 17:07 | PN.GI_ITS ---
Subjective Subjective Patient is doing well. She underwent her MRCP. The findings from MRCP are pending Objective Data Objective Data Vital Signs: Vital Signs Temp Pulse Resp BP Pulse Ox O2 Del Method 99.3 F H 57 L 18 108/50 L 99 Room Air 03/01/24 16:59 03/01/24 16:59 03/01/24 16:59 03/01/24 16:59 03/01/24 16:59 03/01/24 16:59 Oxygen Delivery Method Room Air Weight: 97 lb 3.582 oz Body Mass Index (BMI) 21.9 Intake & Output: Intake and Output for Last 24 Hours 02/28/24 02/29/24 03/01/24 23:59 23:59 23:59 Intake Total 500 / 610 1322.5 / 1322.5 Balance 500 / 610 1322.5 / 1322.5 Lab / Micro Data 03/01/24 07:12 03/01/24 07:12 Labs: Laboratory Results - last 24 hr 02/29/24 17:14: WBC 7.9, RBC 3.06 L, Hgb 9.6 L, Hct 29.6 L, MCV 96.7, MCH 31.4, MCHC 32.4, RDW Std Deviation 56.0 H, RDW Coeff of Rohit 15.8 H, Plt Count 267, MPV 9.0, Immature Gran % (Auto) 2.400 H, Neut % (Auto) 76.8 H, Lymph % (Auto) 10.9 L , [place] % (Auto) 7.0, Eos % (Auto) 2.4, Baso % (Auto) 0.5, Absolute Neuts (auto) 6.0, Absolute Lymphs (auto) 0.86, Nucleated RBC % 0, Sodium 137, Potassium 4.6, Chloride 107, Carbon Dioxide 24.0, Anion Gap 7, BUN 39 H, Creatinine 1.55 H, Estim Creat Clear Calc 20.28, Est GFR (MDRD) Af Amer 41 L, Est GFR (MDRD) Non-Af 34 L, BUN/Creatinine Ratio 25.2 H, Glucose 105, Calcium 8.8, Total Bilirubin 0.30, AST 33, ALT 59 H, Alkaline Phosphatase 81, Troponin I High Sens 22, Total Protein 6.5, Albumin 2.9 L, Globulin 3.6, Albumin/Globulin Ratio 0.8 L, Lipase 31 02/29/24 18:53: Urine Color Yellow, Urine Clarity Clear, Urine pH 6.0, Ur Specific [place] 1.010, Urine Protein 15 H, Urine Glucose (UA) Normal, Urine Ketones Negative, Urine Occult Blood Negative, Urine Nitrite Negative, Urine Bilirubin Negative, Urine Urobilinogen Normal, Ur Leukocyte Esterase 25 H, Urine RBC 0 SEEN, Urine WBC 0 SEEN, Ur Squamous Epith Cells 0 SEEN, Urine Bacteria RARE, Urine Mucus 0 SEEN 03/01/24 07:12: WBC 7.8, RBC 2.83 L, Hgb 8.5 L, Hct 27.6 L, MCV 97.5, MCH 30.0, MCHC 30.8 L, RDW Std Deviation 56.6 H, RDW Coeff of Rohit 15.8 H, Plt Count 226, MPV 8.6, Immature Gran % (Auto) 1.000 H, Neut % (Auto) 76.8 H, Lymph % (Auto) 8.7 L, [place] % (Auto) 9.3, Eos % (Auto) 3.7, Baso % (Auto) 0.5, Absolute Neuts (auto) 6.0, Absolute Lymphs (auto) 0.68 L, Nucleated RBC % 0, Sodium 141, P otassium 5.3 H, Chloride 113 H, Carbon Dioxide 23.0, Anion Gap 5, BUN 33 H, C reatinine 1.31 H, Estim Creat Clear Calc 21.46, Est GFR (MDRD) Af Amer 49 L, Est GFR (MDRD) Non-Af 41 L, BUN/Creatinine Ratio 25.2 H, Glucose 77, Calcium 7.9 L, Magnesium 2.2 Radiography Diagnostic Testing: Radiology Impression Chest X-Ray 02/29/24 17:30 IMPRESSION: No acute radiographic abnormalities. Electronically Signed: Ariel Ann MD at 18:21 EST , Abdomen/Pelvis CT 02/29/24 18:55 IMPRESSION: Findings suspicious for terminal ileitis which is nonspecific. One possible etiology is Crohn''s disease. Mild extrahepatic biliary ductal dilatation. Recommend MRCP. 1.1 cm intermediate density cyst in the left mid renal pole. Recommend follow-up MR abdomen with and without contrast. Large amount of fecal retention. Electronically Signed: Ariel Ann MD at 20:42 EST , Brain CT 02/29/24 18:55 IMPRESSION: No acute intracranial abnormality. Chronic involutional and ischemic changes of the brain. Electronically Signed: Ariel Ann MD at 19:28 EST , Physical Exam Const alert, oriented x3 and no apparent distress Constitutional Narrative: frail General Appearance: cooperative HEENT normocephalic, head/scalp atraumatic, moist oral mucous membranes and oropharynx normal Eyes PERRL and EOMs intact bilaterally Neck no lymphadenopathy and supple Lymph Lymphatic: no lymphadenopathy noted and no lymphedema noted Resp normal respiratory effort, normal air movement and clear to auscultation bilaterally Cardio regular rate, regular rhythm, S1 normal heart sound, S2 normal heart sound and no murmurs GI normal to inspection, nondistended, normoactive bowel sounds and soft to palpation GI Narrative: mild epigastric and RUQ tenderness, no guarding or rebound tenderness. Extremity normal capillary refill, no clubbing, cyanosis or edema and no calf tenderness General Extremity: no tenderness to palpation of joints or extremities Skin General Skin Exam: no breakdown Neuro CN's II-XII intact bilaterally, no focal motor deficits and no sensory deficits noted Motor Exam: strength 5/5 throughout and general weakness Psych thought process normal and cooperative Appearance: appropriate Assessment & Plan Assessment/Plan (1) Abdominal pain: PLAN: Plan 88-year-old with acute onset abdominal pain discovered to have decreasing hemoglobin. Her CT scan abdomen pelvis showed dilated common bile ducts. Her LFTs were mildly elevated. Awaiting MRCP. Because of her anemia and abdominal pain. We will wait on the MRCP and we will perform an upper endoscopy. * Her mainly in the epigastric and right upper quadrant region. * CT of the abdomen showed dilatation of extrahepatic bile ducts. * MRCP ordered * Being hydrated with IV fluid normal saline at 75 cc per/hr * On IV pantoprazole 4 mg twice daily * So focal blood is also positive. * She will undergo an EGD and possibly colonoscopy plus or minus ERCP. She was explained alternatives, benefits, risk including withstanding bleeding, infection, sepsis, perforation, need for surgery . She will have an ASA of 3. 03/01/2024-abdominal pain is improved. Her hemoglobin went from 7.7-9.6 and currently is back down to 8.5. Continue to hold anticoagulation and antiplatelet therapy. N.p.o. for EGD today. Charges/Coding Visit Charges Inpatient E&M: 48758 Subs Hosp L3
--- NOTE | 2024-03-01 17:22 | PCM.POST.ANE ---
Anesthesia: Postop Eval I Current Vital Signs Temperature: 97.1 F Pulse Rate: 58 Blood Pressure: 96/72 Respiratory Rate: 16 Pulse Ox: 99 Oxygen Delivery Method: Room Air Assessment Airway patent: Yes Spontaneous unlabored respirations: Yes Mental status: Asleep nausea: No Vomiting: No Anesthesia Complication: No Fluid Hydration Crystalloid volume administer (ml): 10 Total IV fluid infused: 10 Progress Note Anesthesia document: Postop Eval 1 completed: Yes
--- NOTE | 2024-03-01 17:25 | OP.EGD_ITS ---
Patient Name: Mckenna Evans Procedure Date: 03/01/2024 5:05 PM Date of : 1935 Age: 88 Procedure: Upper GI endoscopy Indications: Epigastric abdominal pain Providers: DO Christen Weller MD: Saleem Child MD Medicines: Monitored Anesthesia Care Patient Profile: This is an 88 year old female. Refer to note in patient chart for documentation of history and physical. Patient has symptoms of acute epigastric abdominal pain. Complications: No immediate complications. Procedure: Pre-Anesthesia Assessment: - Prior to the procedure, a History and Physical was performed, and patient medications and allergies were reviewed. The patient is competent. The risks and benefits of the procedure and the sedation options and risks were discussed with the patient. All questions were answered and informed consent was obtained. Patient identification and proposed procedure were verified by the physician in the pre-procedure area. Mental Status Examination: alert and oriented. Airway Examination: normal oropharyngeal airway and neck mobility. Respiratory Examination: clear to auscultation. CV Examination: normal. Prophylactic Antibiotics: The patient does not require prophylactic antibiotics. Prior Anticoagulants: The patient has taken no anticoagulant or antiplatelet agents except for NSAID medication. ASA Grade Assessment: II - A patient with mild systemic disease. After reviewing the risks and benefits, the patient was deemed in satisfactory condition to undergo the procedure. The anesthesia plan was to use monitored anesthesia care (MAC). Immediately prior to administration of medications, the patient was re-assessed for adequacy to receive sedatives. The heart rate, respiratory rate, oxygen saturations, blood pressure, adequacy of pulmonary ventilation, and response to care were monitored throughout the procedure. The physical status of the patient was re-assessed after the procedure. After obtaining informed consent, the endoscope was passed under direct vision. Throughout the procedure, the patient's blood pressure, pulse, and oxygen saturations were monitored continuously. The Endoscope was introduced through the mouth, and advanced to the second part of duodenum. The upper GI endoscopy was accomplished without difficulty. The patient tolerated the procedure well. Scope In: 5:13:50 PM Scope Out: 5:16:21 PM Total Procedure Duration Time 0 hours 2 minutes 31 seconds Findings: The examined esophagus was normal. Diffuse mildly erythematous mucosa without bleeding was found in the gastric body and in the gastric antrum. No gross lesions were noted in the second portion of the duodenum. Impression: - Normal esophagus. - Erythematous mucosa in the gastric body and antrum. - No gross lesions in the second portion of the duodenum. - No specimens collected. Recommendation: - Return patient to [facility] for [facility] care. - Full liquid diet. - Continue present medications. Procedure Code(s): --- Professional --- 30080, Esophagogastroduodenoscopy, flexible, transoral; diagnostic, including collection of specimen(s) by brushing or washing, when performed (separate procedure) CPT copyright 2021 [employer]. All rights reserved. The codes documented in this report are preliminary and upon cold working supervisor review may be revised to meet current compliance requirements. Joe Patterson DO 03/01/2024 5:25:14 PM This report has been signed electronically. Number of Addenda: 0 Note Initiated On: 03/01/2024 5:05 PM
--- NOTE | 2024-03-01 17:26 | OP.CCLET_ITS ---
03/01/2024 Kari Bolivar Re : Upper GI endoscopy procedure for Mckenna Evans Dear Erick This procedure was performed on Friday, March 01, 2024. My impressions and recommendations are as follows: Impressions : - Normal esophagus. - Erythematous mucosa in the gastric body and antrum. - No gross lesions in the second portion of the duodenum. - No specimens collected. Recommendations : - Return patient to [facility] for [facility] care. - Full liquid diet. - Continue present medications. My findings are described in the full procedure note, which is enclosed. If I can be of further assistance, please feel free to contact me at . Sincerely, Joe Patterson, 03/01/2024 5:25:14 PM This report has been signed electronically.
[2024-03-01] MEDS: Ensure Plus High Protein 120 ML LIQUID PO (19:42)
--- NOTE | 2024-03-01 20:03 | PCM.POSTANE2 ---
Anesthesia Postop Eval I Sum Postop Eval Completion status Anesthesia document: Postop Eval 1 completed: Yes Anesthesia Postop Eval I Summary Anesthesia Postop Eval I Summary: Anesthesia Postop Eval I: Assessment Summary Airway patent Yes 03/01/24 20:03 Spontaneous unlabored Yes 03/01/24 20:03 respirations Mental status Asleep 03/01/24 20:03 nausea No 03/01/24 20:03 Vomiting No 03/01/24 20:03 Anesthesia Postop Eval I: Fluid Summary Crystalloid volume administer 10 03/01/24 20:03 (ml) Colloids volume administered ( ml) Blood Product volume administered (ml) Total IV fluid infused 10 03/01/24 20:03 Anesthesia Postop Eval I: Summary Notes Anesthesia Complication No 03/01/24 20:03 Anesthesia Complication Comment: Post-operative progress note Anesthesia: Postop Eval II Evaluation Mental status: Awake and Calm Pain Level: 0 nausea: No Vomiting: No Complications Anesthesia Complication: No
[2024-03-01] MEDS: Gabapentin 300 MG Capsule PO (21:38)
[2024-03-02 04:14] VITALS: BP 94/47; PULSE 53; RESP 16; TEMP 36.6; O2SAT 97
[2024-03-02 06:51] LABS: Absolute Lymphocyte Count 0.96 X10^3/uL (0.83-4.51); Absolute Neutrophil Count 4.2 X10^3/uL (2.0-7.7); Basophil# 0.02 X10^3/uL; Basophil% 0.3 % (0-1); Eosinophil# 0.38 X10^3/uL; Eosinophils% 6.2 % (0-5); Hematocrit 22.9 % (37-47); Hemoglobin 7.1 g/dL (12.0-15.0); Lymphocyte # 0.96 X10^3/ul (0.83-4.51); Lymphocyte % 15.6 % (19-41); Mean Corpuscular Hgb 30.6 pg (27.0-32.0); Mean Corpuscular Volume 98.7 fL (81-99); Monocyte% 9.7 % (0-10); NRBC Flagged by Analyzer 0 % (0-5); Neutrophil # 4.16 X10^3/uL (2.7-7.7); Neutrophil % 67.6 % (47-70); Platelet Count 207 K/mm3 (150-450); RBC Distribution Width CV 16.2 % (11.6-14.6); RBC Distribution Width SD 57.7 fl (35.1-43.9); Red Blood Count 2.32 M/mm3 (4.2-5.4); White Blood Count 6.2 K/mm3 (4.4-11.0)
[2024-03-02 06:59] VITALS: O2SAT 93
[2024-03-02 07:33] LABS: ALB/GLOB Ratio 0.8 RATIO (0.9-2.4); AST(SGOT) 25 U/L (15-37); Alanine Aminotransfer ALT/SGPT 38 U/L (13-56); Albumin, Serum 2.1 g/dL (3.2-5.0); Alkaline Phosphatase 57 U/L (45-117); Anion Gap 5 (5-15); BUN 29 mg/dL (7-18); BUN/Creat Ratio 25.2 RATIO (10-20); Calcium,Total 7.9 mg/dL (8.5-10.1); Chloride 116 mmol/L (98-107); Creatinine, Serum 1.15 mg/dL (0.55-1.02); EST Glomerular Filtration Rate 48 mL/min (>60); Est Glom Filt Rate - Afr Amer 58 mL/min (>60); Estimated Creatinine Clearance 24.45 ml/min; Globulin 2.6 g/dL (2.2-4.2); Glucose 61 mg/dL (74-106); Protein, Total 4.7 g/dL (6.4-8.2); Sodium Level 142 mmol/L (136-145)
[2024-03-02] MEDS: Pantoprazole Sodium 40 MG in 0.9% Normal Saline (100mL MB+) 100 ML 330 MG IV ×2 (08:48→22:13)
[2024-03-02] MEDS: Furosemide 40 MG Tablet PO (08:50)
[2024-03-02] MEDS: Cyanocobalamin 500 MCG Tablet 1000 MCG PO (08:50)
[2024-03-02] MEDS: Ferrous Sulfate 325 MG Tablet PO (08:51)
[2024-03-02] MEDS: Hydroxychloroquine 200 MG Tablet PO (08:51)
[2024-03-02] MEDS: Ensure Plus High Protein 120 ML LIQUID PO ×2 (08:51→14:11)
[2024-03-02] MEDS: Gabapentin 300 MG Capsule PO ×2 (09:02→22:14)
[2024-03-02 09:30] VITALS: BP 108/70; PULSE 55; RESP 16; TEMP 36.8; O2SAT 97
--- NOTE | 2024-03-02 10:30 | PN_ITS ---
Subjective Subjective Patient seen and examined. She had no active complaints and had an uneventful night. She had EGD yesterday which showed erythematous mucosa in the stomach. Review of systems is otherwise negative. BP is running low today in the 90s systolic. Objective Data Objective Data Vital Signs: Vital Signs Temp Pulse Resp BP Pulse Ox O2 Del Method 97.8 F 53 L 16 94/47 L 97 Room Air 03/02/24 04:14 03/02/24 04:14 03/02/24 04:14 03/02/24 04:14 03/02/24 04:14 03/02/24 04:14 Oxygen Delivery Method Room Air Weight: 97 lb 3.582 oz Body Mass Index (BMI) 21.9 Intake & Output: Intake and Output for Last 24 Hours 02/29/24 03/01/24 03/02/24 23:59 23:59 23:59 Intake Total 500 / 610 1682.5 / 1682.5 1257.5 / 1257.5 Balance 500 / 610 1682.5 / 1682.5 1257.5 / 1257.5 Lab / Micro Data 03/02/24 05:43 03/02/24 05:43 Labs: Laboratory Results - last 24 hr 03/02/24 05:43: WBC 6.2, RBC 2.32 L, Hgb 7.1 L, Hct 22.9 L, MCV 98.7, MCH 30.6, MCHC 31.0 L, RDW Std Deviation 57.7 H, RDW Coeff of Rohit 16.2 H, Plt Count 207, MPV 9.0, Immature Gran % (Auto) 0.600, Neut % (Auto) 67.6, Lymph % (Auto) 15.6 L , [place] % (Auto) 9.7, Eos % (Auto) 6.2 H, Baso % (Auto) 0.3, Absolute Neuts (auto) 4.2, Absolute Lymphs (auto) 0.96, Nucleated RBC % 0, Sodium 142, Potassium 5.0, Chloride 116 H, Carbon Dioxide 22.0, Anion Gap 5, BUN 29 H, C reatinine 1.15 H, Estim Creat Clear Calc 24.45, Est GFR (MDRD) Af Amer 58 L, Est GFR (MDRD) Non-Af 48 L, BUN/Creatinine Ratio 25.2 H, Glucose 61 L, Calcium 7.9 L , Total Bilirubin 0.40, AST 25, ALT 38, Alkaline Phosphatase 57, Total Protein 4.7 L, Albumin 2.1 L, Globulin 2.6, Albumin/Globulin Ratio 0.8 L Radiography Diagnostic Testing: Radiology Impression MRCP 03/01/24 07:34 IMPRESSION: Cholelithiasis with mild extrahepatic biliary ductal dilatation and no obvious stones, mass or stricture. This could be secondary to a recently passed or occult stone. Consider ERCP. Two T2 hyperintense cystic lesions in the pancreas, one in the body measuring 5 mm while the other in the tail measuring 1.2 cm. No main pancreatic duct dilatation. 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 Per ACR white paper criteria, no follow-up recommended to patient''s advanced age. 2.3 cm cyst in the left mid renal pole is indeterminate without IV contrast. As was suggested in the CT report, postcontrast images are recommended. Electronically Signed: Ariel Ann MD at 17:15 EST , Physical Exam Const alert, oriented x3 and no apparent distress Constitutional Narrative: frail General Appearance: cooperative HEENT normocephalic, head/scalp atraumatic, moist oral mucous membranes and oropharynx normal Eyes PERRL and EOMs intact bilaterally Neck no lymphadenopathy and supple Lymph Lymphatic: no lymphadenopathy noted and no lymphedema noted Resp normal respiratory effort, normal air movement and clear to auscultation bilaterally Cardio regular rate, regular rhythm, S1 normal heart sound, S2 normal heart sound and no murmurs Rate: bradycardia GI normal to inspection, nondistended, normoactive bowel sounds, soft to palpation and non-distended GI Narrative: mild epigastric and RUQ tenderness, no guarding or rebound tenderness. Palpation: tender other (Generalized); Negative for guarding or rigid Extremity normal capillary refill, no clubbing, cyanosis or edema and no calf tenderness General Extremity: no tenderness to palpation of joints or extremities Skin General Skin Exam: no breakdown Neuro CN's II-XII intact bilaterally, no focal motor deficits and no sensory deficits noted Neuro Narrative: Slight weakness in right lower extremity compared to left Motor Exam: strength 5/5 throughout and general weakness Psych thought process normal, cooperative and affect normal Appearance: appropriate Assessment & Plan Assessment/Plan (1) Abdominal pain: PLAN: Plan # Abdominal pain * Patient admitted with complains of abdominal pain. Is mainly in the epigastric and right upper quadrant region. Jara sign was negative. * CT of the abdomen showed dilatation of extrahepatic bile ducts. 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 * had EGD which showed erythematous mucosa in the gastric body and antrum as well as normal esophagus. * Being hydrated with IV fluid normal saline at 75 cc per/hr * On IV pantoprazole 4 mg twice daily * Stool for occult blood is also positive. GI on board. * #Hyperlipidemia:resume statins. #CKD stage III: Creatinine at baseline. Will monitor. #History of paroxysmal A-fib: * On amiodarone and Eliquis. * Hold amiodarone due to effect on liver. Eliquis on hold. * #Acute on chronic anemia: * Hb is 7.1; was 9.6 on admission. * EGD findings as above. * Transfuse if Hb <7. * on IV PPI #Secondary pulmonary hypertension: * Had known pulmonary artery systolic pressure of 50 mmHg from previous echoes. * Likely due to underlying heart failure. * Will monitor. #History of heart failure preserved ejection fraction: * Not in exacerbation. * Breathing treatments bronchodilators. * On Lasix. Lasix held today due to hypotension. #History of peripheral vascular disease * S/p peripheral vascular intervention but does not know exactly what was done as it was done in [place]. * Follow-up with vascular surgery on outpatient basis. * #DVT prophylaxis: SCDs. Charges/Coding Visit Charges Inpatient E&M: 44346 Subs Hosp L2
[2024-03-02] MEDS: 0.9% Normal Saline (1000mL) 1,000 ML 125 ML IV (11:47)
--- NOTE | 2024-03-02 15:54 | CHAPLAIN ---
Type of Pastoral Visit _x__ Initial Visit ___ Follow-up Visit ___ On-call Visit ___ General Patient Visit ___ Spiritual Assessment ___ Family Conference ___ Bereavement ___ Rapid Response ___ Code Blue ___ Other (describe below) Pastoral Care Referral From _x__ Patient ___ Family ___ Nurse ___ Physician ___ Classroom Instructor ___ Dermatology Specialist ___ Other (describe below) Sacrament/Intervention _x__ Active listening ___ Anointing ___ Oriental Orthodox ___ Bereavement ___ Communion ___ Karlene exploration ___ ___ Life review _x__ Prayer ___ Reconciliation ___ Sacrament of Sick _x__ Supportive presence ___ Wedding ___ Other (describe below) Pastoral Comments patient has been seen often in recent weeks and she has a new issue; pt is talkative and explains what is happening although she is unclear about any new diagnosis or treatments; pt states that she wants to keep living and to be active; pt has hope due to past life of activity and her karlene in God; pt welcomes prayer
[2024-03-02 17:00] VITALS: BP 89/58; PULSE 56; RESP 16; TEMP 36.7; O2SAT 98
[2024-03-02 19:52] VITALS: BP 95/61; PULSE 54; RESP 18; TEMP 36.7; O2SAT 98
[2024-03-02] MEDS: 0.9% Normal Saline (500mL Bag) 500 ML 999 ML IV (19:56)
[2024-03-03] VITALS (9 sets, daily range): BP systolic 109–158; BP diastolic 50–74; PULSE 49–68; RESP 16–18; TEMP 36.5–37.2; O2SAT 95–98
[2024-03-03] MEDS: 0.9% Normal Saline (1000mL) 1,000 ML 125 ML IV (02:40)
[2024-03-03 06:02] LABS: Absolute Lymphocyte Count 0.74 X10^3/uL (0.83-4.51); Absolute Neutrophil Count 3.4 X10^3/uL (2.0-7.7); Basophil# 0.02 X10^3/uL; Basophil% 0.4 % (0-1); Eosinophil# 0.32 X10^3/uL; Eosinophils% 6.4 % (0-5); Hematocrit 21.4 % (37-47); Hemoglobin 6.5 g/dL (12.0-15.0); Lymphocyte # 0.74 X10^3/ul (0.83-4.51); Lymphocyte % 14.8 % (19-41); Mean Corp Hgb Conc 30.4 g/dL (32-36); Mean Corpuscular Volume 98.6 fL (81-99); Mean Platelet Vol. 8.9 fl (6.2-12.0); Monocyte# 0.47 X10^3/uL; Monocyte% 9.4 % (0-10); NRBC Flagged by Analyzer 0 % (0-5); Neutrophil # 3.39 X10^3/uL (2.7-7.7); Platelet Count 175 K/mm3 (150-450); RBC Distribution Width CV 16.2 % (11.6-14.6); RBC Distribution Width SD 58.2 fl (35.1-43.9); Red Blood Count 2.17 M/mm3 (4.2-5.4)
[2024-03-03 06:51] LABS: ALB/GLOB Ratio 0.8 RATIO (0.9-2.4); AST(SGOT) 23 U/L (15-37); Alanine Aminotransfer ALT/SGPT 36 U/L (13-56); Albumin, Serum 2.1 g/dL (3.2-5.0); Alkaline Phosphatase 49 U/L (45-117); Anion Gap 7 (5-15); BUN 18 mg/dL (7-18); BUN/Creat Ratio 18.1 RATIO (10-20); Calcium,Total 7.3 mg/dL (8.5-10.1); Chloride 118 mmol/L (98-107); EST Glomerular Filtration Rate 56 mL/min (>60); Est Glom Filt Rate - Afr Amer 68 mL/min (>60); Estimated Creatinine Clearance 28.11 ml/min; Globulin 2.5 g/dL (2.2-4.2); Glucose 79 mg/dL (74-106); Potassium 4.7 mmol/L (3.5-5.1); Protein, Total 4.6 g/dL (6.4-8.2); Sodium Level 142 mmol/L (136-145)
[2024-03-03] MEDS: Ferrous Sulfate 325 MG Tablet PO (08:19)
--- NOTE | 2024-03-03 08:24 | CASEMGMT ---
Social Work- SW collaborated with physician and TCU admissions to place orders for therapy. TCU will work to obtain precert once therapy evals are completed. ANSELMO Carter
[2024-03-03] MEDS: Pantoprazole Sodium 40 MG in 0.9% Normal Saline (100mL MB+) 100 ML 330 MG IV ×2 (09:56→22:59)
[2024-03-03] MEDS: 0.9% Saline Lock 10 ML Syringe IV ×3 (09:57→23:46)
[2024-03-03] MEDS: Cholecalciferol (Vit D3) 125 MCG CAPSULE (5,000 UNITS) PO (09:59)
[2024-03-03] MEDS: Hydroxychloroquine 200 MG Tablet PO (09:59)
[2024-03-03] MEDS: Gabapentin 300 MG Capsule PO ×2 (10:01→23:02)
[2024-03-03] MEDS: Bisacodyl 5 MG Tablet 20 MG PO (10:01)
--- NOTE | 2024-03-03 10:02 | PN_ITS ---
Subjective Subjective Patient seen and examined. SHe hd no active complaints today and said she felt much better than yesterday. She still did admit to abdomina pain. Review of systems is otherwise negative. Her Hb is down to 6.5 today. Objective Data Objective Data Vital Signs: Vital Signs Temp Pulse Resp BP Pulse Ox O2 Del Method 98.6 F 54 L 18 130/69 H 95 Room Air 03/03/24 08:47 03/03/24 08:47 03/03/24 08:47 03/03/24 08:47 03/03/24 08:47 03/03/24 08:48 Oxygen Delivery Method Room Air Weight: 97 lb 3.582 oz Body Mass Index (BMI) 21.9 Intake & Output: Intake and Output for Last 24 Hours 03/01/24 03/02/24 03/03/24 23:59 23:59 23:59 Intake Total 1682.5 / 1682.5 4067.5 / 4067.5 300 / 300 Balance 1682.5 / 1682.5 4067.5 / 4067.5 300 / 300 Lab / Micro Data 03/03/24 05:41 03/03/24 05:41 Labs: Laboratory Results - last 24 hr 02/29/24 08:10: Blood Type A POSITIVE, Antibody Screen NEGATIVE, Crossmatch See Detail 03/03/24 05:41: WBC 5.0, RBC 2.17 L, Hgb 6.5 L, Hct 21.4 L, MCV 98.6, MCH 30.0, MCHC 30.4 L, RDW Std Deviation 58.2 H, RDW Coeff of Rohit 16.2 H, Plt Count 175, MPV 8.9, Immature Gran % (Auto) 1.000 H, Neut % (Auto) 68.0, Lymph % (Auto) 14.8 L, [place] % (Auto) 9.4, Eos % (Auto) 6.4 H, Baso % (Auto) 0.4, Absolute Neuts (auto) 3.4, Absolute Lymphs (auto) 0.74 L, Nucleated RBC % 0, Sodium 142, Potassium 4.7, Chloride 118 H, Carbon Dioxide 18.0 L, Anion Gap 7, BUN 18, Creatinine 1.00, Estim Creat Clear Calc 28.11, Est GFR (MDRD) Af Amer 68, Est GFR (MDRD) Non-Af 56 L, BUN/Creatinine Ratio 18.1, Glucose 79, Calcium 7.3 L, Total Bilirubin 0.30, AST 23, ALT 36, Alkaline Phosphatase 49, Total Protein 4.6 L, Albumin 2.1 L, Globulin 2.5, Albumin/Globulin Ratio 0.8 L 03/03/24 08:18: Blood Type A POSITIVE, Antibody Screen NEGATIVE, Crossmatch See Detail Physical Exam Const alert, oriented x3 and no apparent distress Constitutional Narrative: frail General Appearance: cooperative HEENT normocephalic, head/scalp atraumatic, moist oral mucous membranes and oropharynx normal Eyes PERRL and EOMs intact bilaterally Neck no lymphadenopathy and supple Lymph Lymphatic: no lymphadenopathy noted and no lymphedema noted Resp normal respiratory effort, normal air movement and clear to auscultation bilaterally Cardio regular rate, regular rhythm, S1 normal heart sound, S2 normal heart sound and no murmurs Rate: bradycardia Heart Sounds: Negative for murmur GI normal to inspection, nondistended, normoactive bowel sounds, soft to palpation and non-distended GI Narrative: mild epigastric and RUQ tenderness, no guarding or rebound tenderness. Palpation: tender other (Generalized) Extremity normal capillary refill, no clubbing, cyanosis or edema and no calf tenderness General Extremity: no tenderness to palpation of joints or extremities Skin General Skin Exam: no breakdown Neuro CN's II-XII intact bilaterally, no focal motor deficits and no sensory deficits noted Motor Exam: strength 5/5 throughout and general weakness Psych thought process normal, cooperative and affect normal Appearance: appropriate Assessment & Plan Assessment/Plan (1) Abdominal pain: PLAN: Plan # Abdominal pain * Patient admitted with complains of abdominal pain. Is mainly in the epigastric and right upper quadrant region. Jara sign was negative. * CT of the abdomen showed dilatation of extrahepatic bile ducts. 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 * had EGD which showed erythematous mucosa in the gastric body and antrum as well as normal esophagus. * Being hydrated with IV fluid normal saline at 75 cc per/hr * On IV pantoprazole 40 mg twice daily * Stool for occult blood is also positive. GI on board. * complaining of abdominal pain again today, and Hb down to 6.5. Management as per GI. * #Hyperlipidemia:resume statins. #CKD stage III: Creatinine at baseline. Will monitor. #History of paroxysmal A-fib: * On amiodarone and Eliquis. * Hold amiodarone due to effect on liver. Eliquis on hold. * #Acute on chronic anemia: * Hb today is down to 6.5 from 7.1 yesterday * EGD findings as above. * Transfuse with 2 units of PRBCs * Per GI, she will need colonoscopy. * on IV PPI #Secondary pulmonary hypertension: * Had known pulmonary artery systolic pressure of 50 mmHg from previous echoes. * Likely due to underlying heart failure. * Will monitor. #History of heart failure preserved ejection fraction: * Not in exacerbation. * Breathing treatments bronchodilators. * On Lasix. Lasix held today due to hypotension. #History of peripheral vascular disease * S/p peripheral vascular intervention but does not know exactly what was done as it was done in [place]. * Follow-up with vascular surgery on outpatient basis. * #DVT prophylaxis: SCDs. Charges/Coding Visit Charges Inpatient E&M: 13371 Subs Hosp L3
[2024-03-03] MEDS: Polyethylene Glycol 3350 BOWEL PREP PO (15:09)
--- NOTE | 2024-03-03 16:38 | PN.GI_ITS ---
Subjective Subjective Patient underwent an upper endoscopy yesterday. No etiology of the patient's acute blood loss anemia were seen. Colonoscopy prep was ordered for today for colonoscopy tomorrow. Objective Data Objective Data Vital Signs: Vital Signs Temp Pulse Resp BP Pulse Ox O2 Del Method 97.7 F L 53 L 18 122/54 H 98 Room Air 03/03/24 13:50 03/03/24 13:50 03/03/24 13:50 03/03/24 13:50 03/03/24 13:50 03/03/24 13:50 Oxygen Delivery Method Room Air Weight: 97 lb 3.582 oz Body Mass Index (BMI) 21.9 Intake & Output: Intake and Output for Last 24 Hours 03/01/24 03/02/24 03/03/24 23:59 23:59 23:59 Intake Total 1682.5 / 1682.5 4067.5 / 4067.5 1560 / 1560 Balance 1682.5 / 1682.5 4067.5 / 4067.5 1560 / 1560 Lab / Micro Data 03/03/24 05:41 03/03/24 05:41 Labs: Laboratory Results - last 24 hr 02/29/24 08:10: Crossmatch See Detail 03/03/24 05:41: WBC 5.0, RBC 2.17 L, Hgb 6.5 L, Hct 21.4 L, MCV 98.6, MCH 30.0, MCHC 30.4 L, RDW Std Deviation 58.2 H, RDW Coeff of Rohit 16.2 H, Plt Count 175, MPV 8.9, Immature Gran % (Auto) 1.000 H, Neut % (Auto) 68.0, Lymph % (Auto) 14.8 L, [place] % (Auto) 9.4, Eos % (Auto) 6.4 H, Baso % (Auto) 0.4, Absolute Neuts (auto) 3.4, Absolute Lymphs (auto) 0.74 L, Nucleated RBC % 0, Sodium 142, Potassium 4.7, Chloride 118 H, Carbon Dioxide 18.0 L, Anion Gap 7, BUN 18, Creatinine 1.00, Estim Creat Clear Calc 28.11, Est GFR (MDRD) Af Amer 68, Est GFR (MDRD) Non-Af 56 L, BUN/Creatinine Ratio 18.1, Glucose 79, Calcium 7.3 L, Total Bilirubin 0.30, AST 23, ALT 36, Alkaline Phosphatase 49, Total Protein 4.6 L, Albumin 2.1 L, Globulin 2.5, Albumin/Globulin Ratio 0.8 L 03/03/24 08:18: Blood Type A POSITIVE, Antibody Screen NEGATIVE, Crossmatch See Detail Physical Exam Const alert, oriented x3 and no apparent distress Constitutional Narrative: frail General Appearance: cooperative HEENT normocephalic, head/scalp atraumatic, moist oral mucous membranes and oropharynx normal Eyes PERRL and EOMs intact bilaterally Neck no lymphadenopathy and supple Lymph Lymphatic: no lymphadenopathy noted and no lymphedema noted Resp normal respiratory effort, normal air movement and clear to auscultation bilaterally Cardio regular rate, regular rhythm, S1 normal heart sound, S2 normal heart sound and no murmurs Rate: bradycardia Heart Sounds: Negative for murmur GI normal to inspection, nondistended, normoactive bowel sounds, soft to palpation and non-distended GI Narrative: mild epigastric and RUQ tenderness, no guarding or rebound tenderness. Palpation: tender other (Generalized) Extremity normal capillary refill, no clubbing, cyanosis or edema and no calf tenderness General Extremity: no tenderness to palpation of joints or extremities Skin General Skin Exam: no breakdown Neuro CN's II-XII intact bilaterally, no focal motor deficits and no sensory deficits noted Motor Exam: strength 5/5 throughout and general weakness Psych thought process normal, cooperative and affect normal Appearance: appropriate Assessment & Plan Assessment/Plan (1) Abdominal pain: PLAN: Plan 88-year-old with acute onset abdominal pain discovered to have decreasing hemoglobin. Her CT scan abdomen pelvis showed dilated common bile ducts. Her LFTs were mildly elevated. Awaiting MRCP. Because of her anemia and abdominal pain. We will wait on the MRCP and we will perform an upper endoscopy. * Her mainly in the epigastric and right upper quadrant region. * CT of the abdomen showed dilatation of extrahepatic bile ducts. * MRCP ordered * Being hydrated with IV fluid normal saline at 75 cc per/hr * On IV pantoprazole 4 mg twice daily * So focal blood is also positive. * She will undergo an EGD and possibly colonoscopy plus or minus ERCP. She was explained alternatives, benefits, risk including withstanding bleeding, infection, sepsis, perforation, need for surgery . She will have an ASA of 3. 03/01/2024-abdominal pain is improved. Her hemoglobin went from 7.7-9.6 and currently is back down to 8.5. Continue to hold anticoagulation and antiplatelet therapy. N.p.o. for EGD today. 03/03/2024: Patient underwent an upper endoscopy yesterday. She is not having abdominal pain at this time. However her hemoglobin keeps going down. She did have an MRCP that showed dilated common bile duct possibly secondary to a stricture but patient is not have any more abdominal pain and her LFTs are within normal limits. Findings: The examined esophagus was normal. Diffuse mildly erythematous mucosa without bleeding was found in the gastric body and in the gastric antrum. No gross lesions were noted in the second portion of the duodenum. Impression: - Normal esophagus. - Erythematous mucosa in the gastric body and antrum. - No gross lesions in the second portion of the duodenum. - No specimens collected. Recommendation: - Return patient to hospital [facility] for ongoing care. - Full liquid diet. - Continue present medications. Continue prep for colonoscopy tomorrow. Charges/Coding Visit Charges Inpatient E&M: 20599 Subs Hosp L3
--- NOTE | 2024-03-03 22:11 | PCM.HOSP.N ---
Hospitalist Note Onset fine crackles after 1 u PRBC, will dose with lasix 20 mg IV x 1 in between the next PRBC unit.
[2024-03-03] MEDS: Menthol/Lanolin/Calamine/Znox 113 GM Tube 1 APPLIC TOPICAL (22:55)
[2024-03-03] MEDS: Furosemide 20 MG/2 ML VIAL IV (23:03)
--- NOTE | 2024-03-03 23:56 | NURSING ---
2nd unit of blood started at 2345.
[2024-03-04] VITALS (14 sets, daily range): BP systolic 71–148; BP diastolic 38–93; PULSE 60–74; RESP 14–18; TEMP 36.6–37.2; O2SAT 92–100; BMI 21.8
[2024-03-04] MEDS: 0.9% Saline Lock 10 ML Syringe IV ×3 (02:55→21:15)
[2024-03-04 06:26] LABS: Absolute Lymphocyte Count 0.64 X10^3/uL (0.83-4.51); Absolute Neutrophil Count 9.4 X10^3/uL (2.0-7.7); Basophil# 0.03 X10^3/uL; Basophil% 0.3 % (0-1); Eosinophil# 0.27 X10^3/uL; Eosinophils% 2.4 % (0-5); Hemoglobin 11.2 g/dL (12.0-15.0); Lymphocyte # 0.64 X10^3/ul (0.83-4.51); Lymphocyte % 5.8 % (19-41); Mean Corpuscular Hgb 28.6 pg (27.0-32.0); Mean Corpuscular Volume 89.5 fL (81-99); Mean Platelet Vol. 8.4 fl (6.2-12.0); Monocyte# 0.64 X10^3/uL; Monocyte% 5.8 % (0-10); NRBC Flagged by Analyzer 0 % (0-5); Neutrophil # 9.42 X10^3/uL (2.7-7.7); Neutrophil % 84.8 % (47-70); Platelet Count 220 K/mm3 (150-450); RBC Distribution Width CV 18.7 % (11.6-14.6); RBC Distribution Width SD 61.9 fl (35.1-43.9); Red Blood Count 3.91 M/mm3 (4.2-5.4); White Blood Count 11.1 K/mm3 (4.4-11.0)
[2024-03-04 07:39] LABS: ALB/GLOB Ratio 0.8 RATIO (0.9-2.4); AST(SGOT) 26 U/L (15-37); Alanine Aminotransfer ALT/SGPT 45 U/L (13-56); Albumin, Serum 2.5 g/dL (3.2-5.0); Alkaline Phosphatase 69 U/L (45-117); Anion Gap 7 (5-15); BUN 11 mg/dL (7-18); BUN/Creat Ratio 10.1 RATIO (10-20); Calcium,Total 8.4 mg/dL (8.5-10.1); Chloride 116 mmol/L (98-107); Creatinine, Serum 1.09 mg/dL (0.55-1.02); EST Glomerular Filtration Rate 51 mL/min (>60); Est Glom Filt Rate - Afr Amer 61 mL/min (>60); Estimated Creatinine Clearance 25.79 ml/min; Globulin 3.3 g/dL (2.2-4.2); Glucose 121 mg/dL (74-106); Potassium 4.1 mmol/L (3.5-5.1); Protein, Total 5.8 g/dL (6.4-8.2); Sodium Level 140 mmol/L (136-145)
[2024-03-04] MEDS: Menthol/Lanolin/Calamine/Znox 113 GM Tube 1 APPLIC TOPICAL ×2 (09:10→20:42)
[2024-03-04] MEDS: Ferrous Sulfate 325 MG Tablet PO (09:10)
[2024-03-04] MEDS: Hydroxychloroquine 200 MG Tablet PO (09:11)
[2024-03-04] MEDS: Cyanocobalamin 500 MCG Tablet 1000 MCG PO (09:11)
[2024-03-04] MEDS: Gabapentin 300 MG Capsule PO ×2 (09:15→20:42)
[2024-03-04] MEDS: Pantoprazole Sodium 40 MG Tablet PO ×2 (09:15→20:42)
--- NOTE | 2024-03-04 10:24 | CASEMGMT ---
Social Work Pt admitted from TCU and will need precert to return. ANDREA spoke with Ninfa in TCU. Pt is not medically ready for dc at this time. Precert can not be started until pt is ready for dc. TCU does not have a bed available over the weekend. SW to follow up on Thursday for placement on TCU. Pt updated. ANSELMO Macdonald
--- NOTE | 2024-03-04 11:23 | PN_ITS ---
Subjective Subjective Patient seen and examined. She still complains of some abdominal pain. She denies any nausea or vomiting. Review of systems otherwise negative. She is for colonoscopy today. Objective Data Objective Data Vital Signs: Vital Signs Temp Pulse Resp BP Pulse Ox O2 Del Method 98.4 F 66 14 148/61 H 93 Room Air 03/04/24 08:51 03/04/24 08:51 03/04/24 08:51 03/04/24 08:51 03/04/24 08:51 03/04/24 08:54 Oxygen Delivery Method Room Air Weight: 97 lb 3.582 oz Body Mass Index (BMI) 21.9 Intake & Output: Intake and Output for Last 24 Hours 03/02/24 03/03/24 03/04/24 23:59 23:59 23:59 Intake Total 4067.5 / 4067.5 2450 / 3250 1300 / 1300 Balance 4067.5 / 4067.5 2450 / 3250 1300 / 1300 Lab / Micro Data 03/04/24 06:05 03/04/24 06:05 Labs: Laboratory Results - last 24 hr 03/03/24 08:18: Blood Type A POSITIVE, Antibody Screen NEGATIVE, Crossmatch See Detail 03/04/24 06:05: WBC 11.1 H, RBC 3.91 L, Hgb 11.2 L, Hct 35.0 L, MCV 89.5 D, MCH 28.6, MCHC 32.0 D, RDW Std Deviation 61.9 H, RDW Coeff of Rohit 18.7 H, Plt Count 220, MPV 8.4, Immature Gran % (Auto) 0.900, Neut % (Auto) 84.8 H, Lymph % (Auto) 5.8 L, [place] % (Auto) 5.8, Eos % (Auto) 2.4, Baso % (Auto) 0.3, Absolute Neuts (auto) 9.4 H, Absolute Lymphs (auto) 0.64 L, Nucleated RBC % 0, Sodium 140, Potassium 4.1, Chloride 116 H, Carbon Dioxide 18.0 L, Anion Gap 7, BUN 11, C reatinine 1.09 H, Estim Creat Clear Calc 25.79, Est GFR (MDRD) Af Amer 61, Est GFR (MDRD) Non-Af 51 L, BUN/Creatinine Ratio 10.1, Glucose 121 H, Calcium 8.4 L, Total Bilirubin 1.40 H, AST 26, ALT 45, Alkaline Phosphatase 69, Total Protein 5.8 L, Albumin 2.5 L, Globulin 3.3, Albumin/Globulin Ratio 0.8 L Physical Exam Const alert, oriented x3 and no apparent distress Constitutional Narrative: frail General Appearance: cooperative and well developed HEENT normocephalic, head/scalp atraumatic, moist oral mucous membranes and oropharynx normal Eyes PERRL and EOMs intact bilaterally Neck no lymphadenopathy and supple Lymph Lymphatic: no lymphadenopathy noted and no lymphedema noted Resp normal respiratory effort, normal air movement and clear to auscultation bilaterally Cardio regular rate, regular rhythm, S1 normal heart sound, S2 normal heart sound and no murmurs Rate: bradycardia GI normal to inspection, nondistended, normoactive bowel sounds, soft to palpation and non-distended GI Narrative: still has mild epigastric and RUQ tenderness, no guarding or rebound tenderness. Palpation: tender other (Generalized) Extremity normal capillary refill, no clubbing, cyanosis or edema and no calf tenderness General Extremity: no tenderness to palpation of joints or extremities Skin General Skin Exam: no breakdown Neuro CN's II-XII intact bilaterally, no focal motor deficits and no sensory deficits noted Neuro Narrative: Slight weakness in right lower extremity compared to left Motor Exam: strength 5/5 throughout and general weakness Psych thought process normal, cooperative and affect normal Appearance: appropriate Assessment & Plan Assessment/Plan (1) Abdominal pain: PLAN: Plan # Abdominal pain * Patient admitted with complains of abdominal pain. Is mainly in the epigastric and right upper quadrant region. Jara sign was negative. * CT of the abdomen showed dilatation of extrahepatic bile ducts. 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 * had EGD which showed erythematous mucosa in the gastric body and antrum as well as normal esophagus. * Being hydrated with IV fluid normal saline at 75 cc per/hr * On IV pantoprazole 40 mg twice daily * Stool for occult blood is also positive. GI on board. * per GI, for ERCP. * total bilirubin today has trended up to 1.4. * #Acute on chronic anemia: * s/p transfusion of 2 units of PRBCs yesterday * Hb today is up to 11.2. * EGD showed erythematous mucosa in the gastric antrum and body as well as normal esophagus. * for colonoscopy today * on IV pantoprazole. * #Hyperlipidemia:resume statin. #CKD stage III: Creatinine at baseline. Will monitor. #History of paroxysmal A-fib: * On amiodarone and Eliquis. * Hold amiodarone due to effect on liver. Eliquis on hold. * #Secondary pulmonary hypertension: * Had known pulmonary artery systolic pressure of 50 mmHg from previous echoes. * Likely due to underlying heart failure. * Will monitor. #History of heart failure preserved ejection fraction: * Not in exacerbation. * Breathing treatments bronchodilators. * On Lasix. Lasix held today due to hypotension. #History of peripheral vascular disease * S/p peripheral vascular intervention but does not know exactly what was done as it was done in [place]. * Follow-up with vascular surgery on outpatient basis. * #DVT prophylaxis: SCDs. Charges/Coding Visit Charges Inpatient E&M: 41093 Subs Hosp L2
--- NOTE | 2024-03-04 15:46 | PRE.ANES_ITS ---
ASA Classification* ASA Classification ASA Classification: 4 Assessment & Plan Anesthesia* Anesthesia Assessment Anesthesia Assessment: Discussed sedation and/or anesthesia options, risks, benefits, and alternatives with patient/parents/legal guardian/POA. Questions invited. The patient/parents/legal guardian/POA seems to understand and agrees to proceed with anesthesia plan. Reviewed the physical assessment, medical history, allergy history and patient home medications list prior to surgery/procedure/anesthetic and documented any changes. Performed airway and anesthesia risk assessments. Procedural Plan Add'l anesthesia plan details: May require RSI in view of recent emesis. Anesthesia Type Anesthesia Type: MAC Anesthesia Focused Assessment* Temperature: 98.1 F Pulse Rate: 66 Blood Pressure: 143/79 Respiratory Rate: 16 Pulse Ox: 99 Oxygen Delivery Method: Room Air Airway Assessment Mouth opens: >3 cm Mallampati Score: II Teeth Condition: Dentures Focused Labs Anesthesia Preop lab: CBC WBC 11.1 K/mm3 (4.4-11.0) H 03/04/24 06:05 RBC 3.91 M/mm3 (4.2-5.4) L 03/04/24 06:05 Hgb 11.2 g/dL (12.0-15.0) L 03/04/24 06:05 Hct 35.0 % (37-47) L 03/04/24 06:05 Plt Count 220 K/mm3 (150-450) 03/04/24 06:05 CHEMISTRY Potassium 4.1 mmol/L (3.5-5.1) 03/04/24 06:05 Sodium 140 mmol/L (136-145) 03/04/24 06:05 Magnesium 2.2 mg/dL (1.6-2.6) 03/01/24 07:12 Phosphorus 4.5 mg/dL (2.5-4.9) 02/24/24 05:40 BUN 11 mg/dL (7-18) 03/04/24 06:05 Creatinine 1.09 mg/dL (0.55-1.02) H 03/04/24 06:05 Glucose 121 mg/dL (74-106) H 03/04/24 06:05 POC Glucose 97 mg/dL (74-106) 02/29/24 16:06 TSH 3.370 uIU/mL (0.358-3.740) 02/23/24 06:04 COAG PT 16.7 SECONDS (11.7-14.9) H 02/25/24 05:09 Pre-Assessment Diagnosis/Proposed Procedure Planned Operative Procedure(s): Esophagogastroduodenoscopy Anesthesia History Anesthesia History - switchboard mechanic: Anesthesia History - switchboard mechanic Hx Hospitalization Any Problems With Anesthesia No 03/01/24 12:29 Cholinesterase deficiency No 03/01/24 12:29 You/Your Family Experience No 03/01/24 12:29 fever (hyperthermia) with Relationship Recent Exposure to Contagious No 03/01/24 12:29 Disease Does patient have nerve No 03/01/24 12:29 stimulator Patient instructed to have No 03/01/24 12:29 device shut off --Does patient have Pacemaker No 03/04/24 14:52 or ICD? When Was Last Pacemaker Check QUESTION #4 FULL TEXT: You/Your Family Experience fever (hyperthermia) with Anesthesia Last Oral Intake Last Oral intake: Last Oral Intake NPO since 00:00 03/04/24 14:52 Meds taken in AM with sips of Yes 03/04/24 14:52 water? Meds patient instructed to Neurontin, Protonix, ferrous 03/04/24 14:52 take am of surgery sulfate, Plaquenil PONV PONV - switchboard mechanic: PONV - switchboard mechanic Female HX of Motion Sickness HX of N/V After Surgery Non-Smoker Duration of Surgery greater than 60 minutes Number of Risk Factors PONV Score Height & Weight Height & Weight: Anesthesia: Height & Weight Height 4 ft 8 in 03/04/24 15:16 Weight: 44.1 kg 03/04/24 15:16 Body Mass Index (BMI) 21.8 03/04/24 14:52 Respiratory Assessment Respiratory Assessment - switchboard mechanic: Respiratory Tract Infection Hx - switchboard mechanic Hx Respiratory Tract Infection No 03/01/24 12:29 STOP Sleep Apnea STOP Sleep Apnea - switchboard mechanic: STOP Sleep Apnea - switchboard mechanic Hx Hypertension Yes 03/03/24 09:41 Hx Sleep Apnea No 03/01/24 17:35 CPAP BIPAP Do you snore loudly (louder No 02/29/24 22:26 than talking or can be heard Do you often feel tired/ Yes 02/29/24 22:26 fatigued/ sleepy during daytime? Has anyone observed you stop No 02/29/24 22:26 breathing during sleep? STOP Results Positive 03/01/24 17:22 QUESTION #5 FULL TEXT : Do you snore loudly (louder than talking or can be heard through closed doors)? Tobacco Use History Tobacco Use History - switchboard mechanic: Tobacco Use History - switchboard mechanic Tobacco Use Smoking Status Never smoker 02/29/24 22:26 Hx Tobacco Use No 02/29/24 22:26 Years Smoking Packs Smoked per Day Smoking Cessation Date was within the last 15 years Hx Smoking Cessation Date Hx Smoking Cessation No 02/29/24 22:26 Counseling Hematologic Medial History Hematologic Hx - switchboard mechanic: Hematologic Medical Hx - groutman Hx of Blood Transfusion No 02/29/24 22:26 Hx of Transfusion in last 3 No 02/29/24 22:26 Months Date of Last Transfusion (if within last 3 months) Ever experience any problems No 02/29/24 22:26 with transfusion(s)? Specify any problems Hx of Preganancy in last 3 No 02/29/24 22:26 Months Nurse Filling Out Transfusion EVIZZO 02/29/24 22:26 & Questions: Date: 02/29/24 02/29/24 22:26 Time: 22:41 02/29/24 22:26 Patient unable to answer at this time (ie. confused, unrespo /Reproduction History /Reproductive History - switchboard mechanic: /Reproductive Hx- switchboard mechanic Hx Now No 03/01/24 12:29 Gestational Age (in weeks): EDC: Hx Hx Para Hx Section SAB No 03/01/24 12:29 Active Medications Active Medications: Current Medications Generic Name Dose Route Start Last Admin Trade Name Freq PRN Reason Stop Dose Admin Acetaminophen 650 mg 02/29/24 22:28 Acetaminophen 325 Mg Tablet PO Q4H PRN PRN Pain 1-10 Or Fever>99.6 Calamine/Phenol 1 applic 03/03/24 22:00 03/04/24 09:10 Menthol/Lanolin/Calamine/Znox 113 Gm Tube TOPICAL 1 applic BID SAY Administration Protocol Cholecalciferol 125 mcg 03/03/24 10:00 03/03/24 09:59 Cholecalciferol (Vit D3) 125 Mcg Capsule (5,000 Units) PO 125 mcg QODAY SAY Administration Cyanocobalamin 1,000 mcg 03/02/24 10:00 03/04/24 09:11 Cyanocobalamin 500 Mcg Tablet PO 1,000 mcg MoWeFr@1000 SAY Administration Ferrous Sulfate 325 mg 03/02/24 08:00 03/04/24 09:10 Ferrous Sulfate 325 Mg Tablet PO 325 mg DAILYCM SAY Administration Furosemide 40 mg 03/02/24 10:00 03/02/24 08:50 Furosemide 40 Mg Tablet PO 40 mg DAILY SAY Administration Protocol Gabapentin 300 mg 03/01/24 22:00 03/04/24 09:15 Gabapentin 300 Mg Capsule PO 300 mg BID SAY Administration Hydroxychloroquine Sulfate 200 mg 03/02/24 10:00 03/04/24 09:11 Hydroxychloroquine 200 Mg Tablet PO 200 mg DAILY SAY Administration Morphine Sulfate 1 mg 02/29/24 22:28 03/01/24 14:48 Morphine 2 Mg/Ml Syringe IV 1 mg Q3H PRN PRN Administration Pain Score 6-10 Nutritional Formula (Lactose Free) 120 ml 03/01/24 10:00 03/04/24 14:29 Ensure Plus High Protein 120 Ml Liquid PO Not Given 4X/DAY [facility] Ondansetron HCl 4 mg 02/29/24 23:55 Ondansetron 4 Mg/2 Ml Vial IV Q8H PRN PRN NAUSEA/VOMITING Pantoprazole Sodium 40 mg 03/04/24 10:00 03/04/24 09:15 Pantoprazole Sodium 40 Mg Tablet PO 40 mg BID SAY Administration Senna/Docusate Sodium 2 tablet 03/01/24 14:56 Senna/Docusate Sodium 1 Tablet PO BID PRN Constipation Sodium Chloride 10 - 40 ml 02/29/24 22:26 03/04/24 02:55 0.9% Saline Lock 10 Ml Syringe IV 10 ml UD PRN Administration SALINE FLUSH PFSH Medical History Debility CKD stage 3b, 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 CVA (cerebral vascular accident) 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, sinus Hyperlipidemia Aortic valve disease Cardiac arrhythmia Fibromyalgia CKD (chronic kidney disease) stage 3, GFR 30-59 ml/min Rheumatoid arthritis Osteoporosis Afib Essential (primary) hypertension Shoulder pain with history of repair of rotator cuff Sjogren syndrome Home Medications ?Medication ?Instructions ?Recorded ?Last Taken ?Type atorvastatin 40 mg tablet 40 mg PO DAILY cholesterol 09/07/23 02/21/24 History cholecalciferol (vitamin D3) 125 125 mcg PO QODAY supplement 09/07/23 02/22/24 History mcg (5,000 unit) capsule ferrous sulfate 325 mg (65 mg 325 mg PO DAILY supplement 09/07/23 02/21/24 History iron) tablet gabapentin 300 mg capsule 300 mg PO BID Nerve pain 09/07/23 02/22/24 History lisinopril 40 mg tablet 40 mg PO DAILY BP 09/07/23 02/22/24 History mecobalamin (vitamin B12) 1,000 1,000 mcg PO QMWF supplement 09/07/23 02/22/24 History mcg chewable tablet hydroxychloroquine 200 mg tablet 200 mg PO DAILY Immunosupressive 01/27/24 Unknown History furosemide 40 mg tablet 40 mg PO DAILY fluid pill #30 tabs 01/30/24 02/22/24 Rx acetaminophen 325 mg tablet 650 mg (2 x 325 mg) PO Q4H PRN PRN 02/25/24 Unknown Rx Pain 1-10 Or Fever>99.6 #0 tabs apixaban 5 mg tablet (Eliquis) 2.5 mg (1/2 x 5 mg) PO BID 02/25/24 Unknown Rx afib/prevent clots #0 tabs aspirin 81 mg chewable tablet 81 mg PO BREAKFAST blood thinner 02/25/24 Unknown Rx 30 days #0 tabs ondansetron 4 mg disintegrating 4 mg PO Q6H PRN nausea and 02/25/24 Unknown Rx tablet vomiting #30 tabs sennosides 8.6 mg-docusate sodium 2 tab PO BID PRN Constipation #0 02/25/24 Unknown Rx 50 mg tablet (Stimulant Laxative tabs Plus) Allergy/AdvReac Type Severity Reaction Status Date / Time ciprofloxacin (From Cipro) Allergy Intermediate NEEDS Verified 02/22/24 20:23 FOLLOW-UP duloxetine Allergy Intermediate NEEDS Verified 02/22/24 20:23 FOLLOW-UP ibuprofen Allergy Intermediate NEEDS Verified 02/22/24 20:23 FOLLOW-UP meloxicam Allergy Intermediate NEEDS Verified 02/22/24 20:23 FOLLOW-UP Penicillins Allergy Intermediate NEEDS Verified 01/13/25 20:23 FOLLOW-UP sulfamethoxazole (From Allergy Intermediate NEEDS Verified 02/22/24 20:23 Sept) FOLLOW-UP trimethoprim (From ) Allergy Intermediate NEEDS Verified 02/22/24 20:23 FOLLOW-UP Surgical History History of appendectomy History of cardiac radiofrequency ablation (RFA) S/P hernia repair Social History household members: family housing: house Smoking Status: Never smoker alcohol intake: never substance use type: does not use Review of Systems (Anesthesia) ROS Narrative System reviewed and no additional complaints, except as documented.
--- NOTE | 2024-03-04 16:00 | COLBX_PTH ---
PATIENT: JONNA GIRON LOC: MS3 U#:[id number] AGE/SX: 88/F ROOM: CA314 RE02/29/[address]: Dr. Elsy Zafar DO : 1935 BED: 1 DIS: 03/09/2024 SPEC #: [id number] RECD: 03/04/24 17:18 STATUS: ULISES RESabas #: [id number] WARD: 03/04/24 16:[address]: Jeo Patterson DEPT: SURGICAL PATHOLOGY RECD BY: Cornelia Hui ENTERED: 03/07/24 09:54 SP TYPE: COLON BX OTHR DR: DO Dr. Clotilde Lawton MD Dr. Paul Nielsen, MD Rachel Edgar, SALON STYLIST-C Tissues: Sigmoid colon biopsy Procedures: Surgery Specimen Level IV Comments: @ Ordering doctor for SUIV edited from to @ nicole BOYLE at 03/07/24 112 @ Submitting doctor edited from to @ by TAMAR at 03/07/241120 HEADER OPERATION: Colonoscopy with biopsy PRE-OP DIAGNOSIS: Abdominal pain TISSUE SUBMITTED: Sigmoid colon biopsy MICROSCOPIC DIAGNOSIS Sigmoid colon, biopsy: A fragment of colonic mucosa, no pathologic diagnosis. 03/08/2024 MICROSCOPIC DESCRIPTION Slides are reviewed. GROSS DESCRIPTION Received in fixative is one container labeled with the patient's name and designated Sigmoid colon biopsy. The specimen consists of one irregular fragment of light pastor soft tissue that measures 0.5 x 0.3 x 0.1 cm. The specimen is totally submitted in one cassette. 03/07/2024 TC:4 CPT:74251
--- NOTE | 2024-03-04 16:03 | PN.GI_ITS ---
Subjective Subjective Patient prep for colonoscopy last night. She did well last night. She had a couple episodes of bleeding with the prep. Objective Data Objective Data Vital Signs: Vital Signs Temp Pulse Resp BP Pulse Ox O2 Del Method 98.1 F 66 16 143/79 H 99 Room Air 03/04/24 15:48 03/04/24 15:48 03/04/24 15:48 03/04/24 15:48 03/04/24 15:48 03/04/24 15:48 Oxygen Delivery Method Room Air Weight: 97 lb 3.582 oz Body Mass Index (BMI) 21.8 Intake & Output: Intake and Output for Last 24 Hours 03/02/24 03/03/24 03/04/24 23:59 23:59 23:59 Intake Total 4067.5 / 4067.5 2450 / 3250 1300 / 1300 Output Total 350 / 350 Balance 4067.5 / 4067.5 2450 / 3250 950 / 950 Lab / Micro Data 03/04/24 06:05 03/04/24 06:05 Labs: Laboratory Results - last 24 hr 03/03/24 08:18: Blood Type A POSITIVE, Antibody Screen NEGATIVE, Crossmatch See Detail 03/04/24 06:05: WBC 11.1 H, RBC 3.91 L, Hgb 11.2 L, Hct 35.0 L, MCV 89.5 D, MCH 28.6, MCHC 32.0 D, RDW Std Deviation 61.9 H, RDW Coeff of Rohit 18.7 H, Plt Count 220, MPV 8.4, Immature Gran % (Auto) 0.900, Neut % (Auto) 84.8 H, Lymph % (Auto) 5.8 L, Cochran % (Auto) 5.8, Eos % (Auto) 2.4, Baso % (Auto) 0.3, Absolute Neuts (auto) 9.4 H, Absolute Lymphs (auto) 0.64 L, Nucleated RBC % 0, Sodium 140, Potassium 4.1, Chloride 116 H, Carbon Dioxide 18.0 L, Anion Gap 7, BUN 11, C reatinine 1.09 H, Estim Creat Clear Calc 25.79, Est GFR (MDRD) Af Amer 61, Est GFR (MDRD) Non-Af 51 L, BUN/Creatinine Ratio 10.1, Glucose 121 H, Calcium 8.4 L, Total Bilirubin 1.40 H, AST 26, ALT 45, Alkaline Phosphatase 69, Total Protein 5.8 L, Albumin 2.5 L, Globulin 3.3, Albumin/Globulin Ratio 0.8 L Physical Exam Const alert, oriented x3 and no apparent distress Constitutional Narrative: frail General Appearance: cooperative and well developed HEENT normocephalic, head/scalp atraumatic, moist oral mucous membranes and oropharynx normal Eyes PERRL and EOMs intact bilaterally Neck no lymphadenopathy and supple Lymph Lymphatic: no lymphadenopathy noted and no lymphedema noted Resp normal respiratory effort, normal air movement and clear to auscultation bilaterally Cardio regular rate, regular rhythm, S1 normal heart sound, S2 normal heart sound and no murmurs Rate: bradycardia GI normal to inspection, nondistended, normoactive bowel sounds, soft to palpation and non-distended GI Narrative: still has mild epigastric and RUQ tenderness, no guarding or rebound tenderness. Palpation: tender other (Generalized) Extremity normal capillary refill, no clubbing, cyanosis or edema and no calf tenderness General Extremity: no tenderness to palpation of joints or extremities Skin General Skin Exam: no breakdown Neuro CN's II-XII intact bilaterally, no focal motor deficits and no sensory deficits noted Neuro Narrative: Slight weakness in right lower extremity compared to left Motor Exam: strength 5/5 throughout and general weakness Psych thought process normal, cooperative and affect normal Appearance: appropriate Assessment & Plan Assessment/Plan (1) Abdominal pain: PLAN: Plan 88-year-old with acute onset abdominal pain discovered to have decreasing hemoglobin. Her CT scan abdomen pelvis showed dilated common bile ducts. Her LFTs were mildly elevated. Awaiting MRCP. Because of her anemia and abdominal pain. We will wait on the MRCP and we will perform an upper endoscopy. * Her mainly in the epigastric and right upper quadrant region. * CT of the abdomen showed dilatation of extrahepatic bile ducts. * MRCP ordered * Being hydrated with IV fluid normal saline at 75 cc per/hr * On IV pantoprazole 4 mg twice daily * So focal blood is also positive. * She will undergo an EGD and possibly colonoscopy plus or minus ERCP. She was explained alternatives, benefits, risk including withstanding bleeding, infection, sepsis, perforation, need for surgery . She will have an ASA of 3. 03/01/2024-abdominal pain is improved. Her hemoglobin went from 7.7-9.6 and currently is back down to 8.5. Continue to hold anticoagulation and antiplatelet therapy. N.p.o. for EGD today. 03/03/2024: Patient underwent an upper endoscopy yesterday. She is not having abdominal pain at this time. However her hemoglobin keeps going down. She did have an MRCP that showed dilated common bile duct possibly secondary to a stricture but patient is not have any more abdominal pain and her LFTs are within normal limits. Findings: The examined esophagus was normal. Diffuse mildly erythematous mucosa without bleeding was found in the gastric body and in the gastric antrum. No gross lesions were noted in the second portion of the duodenum. Impression: - Normal esophagus. - Erythematous mucosa in the gastric body and antrum. - No gross lesions in the second portion of the duodenum. - No specimens collected. Recommendation: - [facility] care. - Full liquid diet. - Continue present medications. Continue prep for colonoscopy tomorrow. 03/04/2024-plan is for colonoscopy today. All questions were answered. Charges/Coding Visit Charges Inpatient E&M: 66325 Subs Hosp L3
--- NOTE | 2024-03-04 16:43 | PCM.POST.ANE ---
Anesthesia: Postop Eval I Current Vital Signs Temperature: 98.4 F Pulse Rate: 74 Blood Pressure: 71/38 Respiratory Rate: 18 Pulse Ox: 93 Assessment Airway patent: Yes Spontaneous unlabored respirations: Yes nausea: No Vomiting: No Anesthesia Complication: No Fluid Hydration Crystalloid volume administer (ml): 0 Total IV fluid infused: 0 Progress Note Anesthesia document: Postop Eval 1 completed: Yes
--- NOTE | 2024-03-04 16:44 | OP.COLON_ITS ---
Patient Name: Mckenna Evans Procedure Date: 03/04/2024 4:12 PM Date of : 1935 Age: 88 Procedure: Colonoscopy Indications: Hematochezia Providers: Joe Patterson DO Referring MD: Saleem Child MD Medicines: Monitored Anesthesia Care Patient Profile: This is an 88 year old female. Refer to note in patient chart for documentation of history and physical. Last Colonoscopy: more than 10 years ago. Complications: No immediate complications. Procedure: Pre-Anesthesia Assessment: - Prior to the procedure, a History and Physical was performed, and patient medications and allergies were reviewed. The patient is competent. The risks and benefits of the procedure and the sedation options and risks were discussed with the patient. All questions were answered and informed consent was obtained. Patient identification and proposed procedure were verified by the physician in the pre-procedure area. Mental Status Examination: alert and oriented. Airway Examination: normal oropharyngeal airway and neck mobility. Respiratory Examination: clear to auscultation. CV Examination: normal. Prophylactic Antibiotics: The patient does not require prophylactic antibiotics. Prior Anticoagulants: The patient has taken no anticoagulant or antiplatelet agents except for NSAID medication. ASA Grade Assessment: II - A patient with mild systemic disease. After reviewing the risks and benefits, the patient was deemed in satisfactory condition to undergo the procedure. The anesthesia plan was to use monitored anesthesia care (MAC). Immediately prior to administration of medications, the patient was re-assessed for adequacy to receive sedatives. The heart rate, respiratory rate, oxygen saturations, blood pressure, adequacy of pulmonary ventilation, and response to care were monitored throughout the procedure. The physical status of the patient was re-assessed after the procedure. After I obtained informed consent, the scope was passed under direct vision. Throughout the procedure, the patient's blood pressure, pulse, and oxygen saturations were monitored continuously. The pediatric colonoscope was introduced through the anus and advanced to the cecum, identified by appendiceal orifice and ileocecal valve. The colonoscopy was performed without difficulty. The patient tolerated the procedure well. The quality of the bowel preparation was adequate. The ileocecal valve, appendiceal orifice, and rectum were photographed. Scope In: 4:24:59 PM Scope Withdrawal Time 0 hours 9 minutes 47 seconds Scope Out: 4:38:59 PM Total Procedure Duration Time 0 hours 14 minutes 0 seconds Findings: The perianal and digital rectal examinations were normal. Patchy moderate inflammation characterized by erythema, friability and granularity was found in the recto-sigmoid colon, in the sigmoid colon and in the descending colon. Biopsies were taken with a cold forceps for histology. Verification of patient identification for the specimen was done. Estimated blood loss was minimal. Multiple small and large-mouthed diverticula were found in the recto-sigmoid colon, sigmoid colon, descending colon, splenic flexure and transverse colon. Moderate rectal prolapse was present. Non-bleeding internal hemorrhoids were found during retroflexion. The hemorrhoids were Grade III (internal hemorrhoids that prolapse but require manual reduction). Impression: - Patchy moderate inflammation was found in the recto-sigmoid colon, in the sigmoid colon and in the descending colon secondary to ischemic colitis. Biopsied. - Diverticulosis in the recto-sigmoid colon, in the sigmoid colon, in the descending colon, at the splenic flexure and in the transverse colon. - Rectal prolapse. - Non-bleeding internal hemorrhoids. Recommendation: - No repeat colonoscopy due to age. - Continue present medications. Procedure Code(s): --- Professional --- 38255, Colonoscopy, flexible; with biopsy, single or multiple CPT copyright 2021 [employer]. All rights reserved. The codes documented in this report are preliminary and upon computer console operator review may be revised to meet current compliance requirements. Joe Patterson DO 03/04/2024 4:44:14 PM This report has been signed electronically. Number of Addenda: 0 Note Initiated On: 03/04/2024 4:12 PM
--- NOTE | 2024-03-04 16:44 | OP.CCLET_ITS ---
03/04/2024 Kari Bolivar Re : Colonoscopy procedure for Mckenna Evans Dear Erick This procedure was performed on Monday, March 04, 2024. My impressions and recommendations are as follows: Impressions : - Patchy moderate inflammation was found in the recto-sigmoid colon, in the sigmoid colon and in the descending colon secondary to ischemic colitis. Biopsied. - Diverticulosis in the recto-sigmoid colon, in the sigmoid colon, in the descending colon, at the splenic flexure and in the transverse colon. - Rectal prolapse. - Non-bleeding internal hemorrhoids. Recommendations : - No repeat colonoscopy due to age. - Continue present medications. My findings are described in the full procedure note, which is enclosed. If I can be of further assistance, please feel free to contact me at . Sincerely, Joe Patterson, 03/04/2024 4:44:14 PM This report has been signed electronically.
--- NOTE | 2024-03-04 17:08 | POSTOPAN2_ITS ---
Anesthesia Postop Eval I Sum Postop Eval Completion status Anesthesia document: Postop Eval 1 completed: Yes Anesthesia Postop Eval I Summary Anesthesia Postop Eval I Summary: Anesthesia Postop Eval I: Assessment Summary Airway patent Yes 03/04/24 16:47 LEADITE [email or web address] Spontaneous unlabored Yes 03/04/24 16:47 LEADITE MAN.CSIR respirations Mental status Awake,Calm 03/01/24 20:03 nausea No 03/04/24 16:47 LEADITE MAN.CSIR Vomiting No 03/04/24 16:47 LEADITE MAN.CSIR Anesthesia Postop Eval I: Fluid Summary Crystalloid volume administer 0 03/04/24 16:47 LEADITE MAN.CSIR (ml) Colloids volume administered ( ml) Blood Product volume administered (ml) Total IV fluid infused 0 03/04/24 16:47 LEADITE MAN.CSIR Anesthesia Postop Eval I: Summary Notes Anesthesia Complication No 03/04/24 16:47 LEADITE MAN.CSIR Anesthesia Complication Comment: Post-operative progress note Anesthesia: Postop Eval II Evaluation Mental status: Awake Pain Level: 0 nausea: No Vomiting: No Complications Anesthesia Complication: No
--- NOTE | 2024-03-04 17:08 | PCM.POSTANE2 ---
Anesthesia Postop Eval I Sum Postop Eval Completion status Anesthesia document: Postop Eval 1 completed: Yes Anesthesia Postop Eval I Summary Anesthesia Postop Eval I Summary: Anesthesia Postop Eval I: Assessment Summary Airway patent Yes 03/04/24 16:47 PRODUCTION MACHINE SHOP SUPERVISOR.CSIR Spontaneous unlabored Yes 03/04/24 16:47 PRODUCTION MACHINE SHOP SUPERVISOR.CSIR respirations Mental status Awake,Calm 03/01/24 20:03 nausea No 03/04/24 16:47 PRODUCTION MACHINE SHOP SUPERVISOR.CSIR Vomiting No 03/04/24 16:47 PRODUCTION MACHINE SHOP SUPERVISOR.CSIR Anesthesia Postop Eval I: Fluid Summary Crystalloid volume administer 0 03/04/24 16:47 PRODUCTION MACHINE SHOP SUPERVISOR.CSIR (ml) Colloids volume administered ( ml) Blood Product volume administered (ml) Total IV fluid infused 0 03/04/24 16:47 PRODUCTION MACHINE SHOP SUPERVISOR.CSIR Anesthesia Postop Eval I: Summary Notes Anesthesia Complication No 03/04/24 16:47 PRODUCTION MACHINE SHOP SUPERVISOR.CSIR Anesthesia Complication Comment: Post-operative progress note Anesthesia: Postop Eval II Evaluation Mental status: Awake Pain Level: 0 nausea: No Vomiting: No Complications Anesthesia Complication: No
[2024-03-04] MEDS: Ondansetron 4 MG/2 ML Vial IV (18:04)
[2024-03-05 04:00] VITALS: BP 111/60; PULSE 52; RESP 15; TEMP 36.5; O2SAT 97
[2024-03-05 06:43] LABS: Absolute Lymphocyte Count 0.89 X10^3/uL (0.83-4.51); Absolute Neutrophil Count 4.6 X10^3/uL (2.0-7.7); Basophil# 0.04 X10^3/uL; Basophil% 0.6 % (0-1); Eosinophil# 0.47 X10^3/uL; Eosinophils% 7.2 % (0-5); Hematocrit 31.5 % (37-47); Hemoglobin 10.2 g/dL (12.0-15.0); Lymphocyte # 0.89 X10^3/ul (0.83-4.51); Lymphocyte % 13.6 % (19-41); Mean Corp Hgb Conc 32.4 g/dL (32-36); Mean Corpuscular Hgb 29.2 pg (27.0-32.0); Mean Corpuscular Volume 90.3 fL (81-99); Mean Platelet Vol. 8.5 fl (6.2-12.0); Monocyte# 0.48 X10^3/uL; Monocyte% 7.4 % (0-10); NRBC Flagged by Analyzer 0 % (0-5); Neutrophil # 4.59 X10^3/uL (2.7-7.7); Neutrophil % 70.3 % (47-70); Platelet Count 201 K/mm3 (150-450); RBC Distribution Width CV 19.1 % (11.6-14.6); RBC Distribution Width SD 62.3 fl (35.1-43.9); Red Blood Count 3.49 M/mm3 (4.2-5.4); White Blood Count 6.5 K/mm3 (4.4-11.0)
[2024-03-05 07:08] LABS: ALB/GLOB Ratio 0.8 RATIO (0.9-2.4); AST(SGOT) 15 U/L (15-37); Alanine Aminotransfer ALT/SGPT 33 U/L (13-56); Albumin, Serum 2.3 g/dL (3.2-5.0); Alkaline Phosphatase 61 U/L (45-117); Anion Gap 7 (5-15); BUN 15 mg/dL (7-18); BUN/Creat Ratio 13.5 RATIO (10-20); Calcium,Total 8.6 mg/dL (8.5-10.1); Chloride 114 mmol/L (98-107); Creatinine, Serum 1.11 mg/dL (0.55-1.02); EST Glomerular Filtration Rate 50 mL/min (>60); Est Glom Filt Rate - Afr Amer 60 mL/min (>60); Estimated Creatinine Clearance 25.33 ml/min; Globulin 2.9 g/dL (2.2-4.2); Glucose 105 mg/dL (74-106); Potassium 3.8 mmol/L (3.5-5.1); Protein, Total 5.2 g/dL (6.4-8.2); Sodium Level 141 mmol/L (136-145)
[2024-03-05 07:43] VITALS: PULSE 60
[2024-03-05] MEDS: Hydroxychloroquine 200 MG Tablet PO (07:52)
[2024-03-05] MEDS: Menthol/Lanolin/Calamine/Znox 113 GM Tube 1 APPLIC TOPICAL ×2 (07:52→21:13)
[2024-03-05] MEDS: Ferrous Sulfate 325 MG Tablet PO (07:52)
[2024-03-05] MEDS: Pantoprazole Sodium 40 MG Tablet PO ×2 (07:53→21:14)
[2024-03-05] MEDS: Cholecalciferol (Vit D3) 125 MCG CAPSULE (5,000 UNITS) PO (07:53)
[2024-03-05] MEDS: Gabapentin 300 MG Capsule PO ×2 (07:57→21:15)
--- NOTE | 2024-03-05 10:20 | RAD_ITS ---
HISTORY: pain. TECHNIQUE: XR Shoulder Min 2 Views. COMPARISON: None. FINDINGS: BONES : Nondisplaced fragment of the posterior glenoid. Degenerative osteophytes present. JOINTS: No dislocation. Moderate degenerative change. SOFT TISSUES: Left PICC tip in the left axilla. Calcified granuloma in the left midlung. RAD/Shoulder min 2 Views IMPRESSION: Nondisplaced fracture of the posterior glenoid. No left shoulder dislocation. Left PICC tip in the axilla. Electronically Signed: Tavia Ley MD at 13:00 EST ,
--- NOTE | 2024-03-05 11:25 | PN_ITS ---
Subjective Subjective Patient seen and examined. She complained of right shoulder pain. She also still complains of some abdominal pain. REview of systems is otherwise negative. She has remained hemodynamically stable. Objective Data Objective Data Vital Signs: Vital Signs Temp Pulse Resp BP Pulse Ox O2 Del Method 97.7 F L 60 15 111/60 97 Room Air 03/05/24 04:00 03/05/24 07:43 03/05/24 04:00 03/05/24 04:00 03/05/24 04:00 03/05/24 07:43 Oxygen Delivery Method Room Air Weight: 97 lb 3.582 oz Body Mass Index (BMI) 21.8 Intake & Output: Intake and Output for Last 24 Hours 03/03/24 03/04/24 03/05/24 23:59 23:59 23:59 Intake Total 2450 / 3250 1300 / 1300 Output Total 350 / 350 Balance 2450 / 3250 950 / 950 Lab / Micro Data 03/05/24 06:15 03/05/24 06:15 Labs: Laboratory Results - last 24 hr 03/05/24 06:15: WBC 6.5, RBC 3.49 L, Hgb 10.2 L, Hct 31.5 L, MCV 90.3, MCH 29.2, MCHC 32.4, RDW Std Deviation 62.3 H, RDW Coeff of Rohit 19.1 H, Plt Count 201, MPV 8.5, Immature Gran % (Auto) 0.900, Neut % (Auto) 70.3 H, Lymph % (Auto) 13.6 L, [place] % (Auto) 7.4, Eos % (Auto) 7.2 H, Baso % (Auto) 0.6, Absolute Neuts (auto) 4.6, Absolute Lymphs (auto) 0.89, Nucleated RBC % 0, Sodium 141, Potassium 3.8, Chloride 114 H, Carbon Dioxide 20.0 L, Anion Gap 7, BUN 15, Creatinine 1.11 H, Estim Creat Clear Calc 25.33, Est GFR (MDRD) Af Amer 60, Est GFR (MDRD) Non-Af 50 L, BUN/Creatinine Ratio 13.5, Glucose 105, Calcium 8.6, Total Bilirubin 0.90, AST 15, ALT 33, Alkaline Phosphatase 61, Total Protein 5.2 L, Albumin 2.3 L, Globulin 2.9, Albumin/Globulin Ratio 0.8 L Physical Exam Const alert, oriented x3 and no apparent distress Constitutional Narrative: frail General Appearance: cooperative and well developed HEENT normocephalic, head/scalp atraumatic, moist oral mucous membranes and oropharynx normal Eyes PERRL and EOMs intact bilaterally Neck no lymphadenopathy and supple Lymph Lymphatic: no lymphadenopathy noted and no lymphedema noted Resp normal respiratory effort, normal air movement and clear to auscultation bilaterally Cardio regular rate, regular rhythm, S1 normal heart sound, S2 normal heart sound and no murmurs Rate: bradycardia Heart Sounds: Negative for murmur GI normal to inspection, nondistended, normoactive bowel sounds, soft to palpation and non-distended GI Narrative: mild generalised tenderness, no guarding or rebound tenderness. Extremity normal capillary refill, no clubbing, cyanosis or edema and no calf tenderness Extremity Narrative: mild tenderness with palpation of left shoulder, able to abduct and adduct left shoulder joint. Has a PICC line in LUE so that may be contributing to the pain. General Extremity: no tenderness to palpation of joints or extremities Skin General Skin Exam: no breakdown Neuro CN's II-XII intact bilaterally, no focal motor deficits and no sensory deficits noted Neuro Narrative: Slight weakness in right lower extremity compared to left Motor Exam: strength 5/5 throughout and general weakness Psych thought process normal, cooperative and affect normal Appearance: appropriate Assessment & Plan Assessment/Plan (1) Abdominal pain: PLAN: Plan # Abdominal pain due to ischemic colitis * Patient admitted with complains of abdominal pain. Jara sign was negative. * CT of the abdomen showed dilatation of extrahepatic bile ducts. 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 * had EGD which showed erythematous mucosa in the gastric body and antrum as well as normal esophagus. * Being hydrated with IV fluid normal saline at 75 cc per/hr * On IV pantoprazole 40 mg twice daily * Stool for occult blood is also positive. GI on board. * per GI, for ERCP. * had colonoscopy on 03/04/2024 which showed patchy, moderate inflammation in the rectosigmoid colon, sigmoid colon and in the descending colon secondary to ischemic colitis as well as diverticulosis in the rectosigmoid colon, sigmoid colon, descending colon and splenic flexure and in the transverse colon, rectal prolapse and nonbleeding external hemorrhoids. * to keep BP up and maintain adequate hydration. * #Acute on chronic anemia: * s/p transfusion of 2 units of PRBCs * Hb today is 10.2. * EGD showed erythematous mucosa in the gastric antrum and body as well as normal esophagus. * colonoscopy as above * on IV pantoprazole. #left shoulder pain * Patient complained of left shoulder pain today. She is able to move the left arm at the shoulder joint. She does have a PICC line in situ in the left upper extremity and this may be contributing to the pain. * Will still get x-ray of the left shoulder to evaluate. * tylenol prn * #Hyperlipidemia:on statin #CKD stage III: Creatinine at baseline. Will monitor. #History of paroxysmal A-fib: * On amiodarone and Eliquis. * Hold amiodarone due to effect on liver. Eliquis on hold. * #Secondary pulmonary hypertension: * Had known pulmonary artery systolic pressure of 50 mmHg from previous echoes. * Likely due to underlying heart failure. * Will monitor. #History of heart failure preserved ejection fraction: * Not in exacerbation. * Breathing treatments bronchodilators. * On Lasix. Lasix held today due to hypotension. #History of peripheral vascular disease * S/p peripheral vascular intervention but does not know exactly what was done as it was done in [place]. * Follow-up with vascular surgery on outpatient basis. * #DVT prophylaxis: SCDs. Charges/Coding Visit Charges Inpatient E&M: 23760 Subs Hosp L2
[2024-03-05 11:36] VITALS: BP 126/84; PULSE 60; RESP 20; TEMP 36.7; O2SAT 96
[2024-03-05] MEDS: Acetaminophen 325 MG Tablet 650 MG PO ×3 (11:43→21:15)
[2024-03-05 14:12] VITALS: BP 158/79; PULSE 61; RESP 18; TEMP 36.7; O2SAT 96
[2024-03-05 14:15] VITALS: PULSE 60
[2024-03-05 21:11] VITALS: BP 130/61; PULSE 51; RESP 16; TEMP 36.7; O2SAT 96
[2024-03-05] MEDS: 0.9% Saline Lock 10 ML Syringe IV (21:13)
[2024-03-06 04:19] VITALS: BP 115/61; PULSE 46; RESP 16; TEMP 36.4; O2SAT 96
[2024-03-06 06:48] LABS: Absolute Neutrophil Count 4.5 X10^3/uL (2.0-7.7); Basophil# 0.03 X10^3/uL; Basophil% 0.5 % (0-1); Eosinophil# 0.43 X10^3/uL; Eosinophils% 6.7 % (0-5); Hematocrit 32.6 % (37-47); Hemoglobin 10.5 g/dL (12.0-15.0); Lymphocyte % 14.1 % (19-41); Mean Corp Hgb Conc 32.2 g/dL (32-36); Mean Corpuscular Hgb 29.3 pg (27.0-32.0); Mean Corpuscular Volume 91.1 fL (81-99); Mean Platelet Vol. 8.4 fl (6.2-12.0); Monocyte# 0.48 X10^3/uL; Monocyte% 7.5 % (0-10); NRBC Flagged by Analyzer 0 % (0-5); Neutrophil % 70.6 % (47-70); Platelet Count 185 K/mm3 (150-450); RBC Distribution Width CV 18.4 % (11.6-14.6); RBC Distribution Width SD 61.1 fl (35.1-43.9); Red Blood Count 3.58 M/mm3 (4.2-5.4); White Blood Count 6.4 K/mm3 (4.4-11.0)
[2024-03-06] MEDS: Acetaminophen 325 MG Tablet 650 MG PO ×2 (06:53→21:20)
[2024-03-06 07:55] LABS: ALB/GLOB Ratio 0.7 RATIO (0.9-2.4); AST(SGOT) 11 U/L (15-37); Alanine Aminotransfer ALT/SGPT 29 U/L (13-56); Albumin, Serum 2.3 g/dL (3.2-5.0); Alkaline Phosphatase 60 U/L (45-117); Anion Gap 6 (5-15); BUN 22 mg/dL (7-18); Calcium,Total 8.7 mg/dL (8.5-10.1); Chloride 114 mmol/L (98-107); Creatinine, Serum 1.16 mg/dL (0.55-1.02); EST Glomerular Filtration Rate 47 mL/min (>60); Est Glom Filt Rate - Afr Amer 57 mL/min (>60); Estimated Creatinine Clearance 24.24 ml/min; Globulin 3.2 g/dL (2.2-4.2); Glucose 93 mg/dL (74-106); Potassium 3.9 mmol/L (3.5-5.1); Protein, Total 5.5 g/dL (6.4-8.2); Sodium Level 140 mmol/L (136-145)
[2024-03-06 08:28] VITALS: BP 158/91; PULSE 62; RESP 20; TEMP 36.9; O2SAT 99
[2024-03-06 08:33] VITALS: PULSE 70
[2024-03-06] MEDS: Pantoprazole Sodium 40 MG Tablet PO ×2 (08:40→21:18)
[2024-03-06] MEDS: Hydroxychloroquine 200 MG Tablet PO (08:41)
[2024-03-06] MEDS: Ferrous Sulfate 325 MG Tablet PO (08:41)
[2024-03-06] MEDS: Gabapentin 300 MG Capsule PO ×2 (08:44→21:18)
[2024-03-06] MEDS: Furosemide 40 MG Tablet PO (10:13)
[2024-03-06] MEDS: Menthol/Lanolin/Calamine/Znox 113 GM Tube 1 APPLIC TOPICAL ×2 (10:14→21:18)
--- NOTE | 2024-03-06 10:26 | PN_ITS ---
Subjective Subjective Patient seen and examined. She complained of some headache today. She also complained of shoulder pain. Her abdominal pain is improving. Review of systems is otherwise negative. She was bradycardic overnight. She is on room air. Objective Data Objective Data Vital Signs: Vital Signs Temp Pulse Resp BP Pulse Ox O2 Del Method 98.4 F 70 20 H 158/91 H 99 Room Air 03/06/24 08:28 03/06/24 08:33 03/06/24 08:28 03/06/24 08:28 03/06/24 08:28 03/06/24 08:33 Oxygen Delivery Method Room Air Weight: 97 lb 3.582 oz Body Mass Index (BMI) 21.8 Intake & Output: Intake and Output for Last 24 Hours 03/04/24 03/05/24 03/06/24 23:59 23:59 23:59 Intake Total 1300 / 1300 300 / 300 Output Total 350 / 350 Balance 950 / 950 300 / 300 Lab / Micro Data 03/06/24 06:20 03/06/24 06:20 Labs: Laboratory Results - last 24 hr 03/06/24 06:20: WBC 6.4, RBC 3.58 L, Hgb 10.5 L, Hct 32.6 L, MCV 91.1, MCH 29.3, MCHC 32.2, RDW Std Deviation 61.1 H, RDW Coeff of Rohit 18.4 H, Plt Count 185, MPV 8.4, Immature Gran % (Auto) 0.600, Neut % (Auto) 70.6 H, Lymph % (Auto) 14.1 L, [place] % (Auto) 7.5, Eos % (Auto) 6.7 H, Baso % (Auto) 0.5, Absolute Neuts (auto) 4.5, Absolute Lymphs (auto) 0.90, Nucleated RBC % 0, Sodium 140, Potassium 3.9, Chloride 114 H, Carbon Dioxide 20.0 L, Anion Gap 6, BUN 22 H, Creatinine 1.16 H, Estim Creat Clear Calc 24.24, Est GFR (MDRD) Af Amer 57 L, Est GFR (MDRD) Non-Af 47 L, BUN/Creatinine Ratio 19.0, Glucose 93, Calcium 8.7, Total Bilirubin 0.70, AST 11 L, ALT 29, Alkaline Phosphatase 60, Total Protein 5.5 L, Albumin 2.3 L, Globulin 3.2, Albumin/Globulin Ratio 0.7 L Radiography Diagnostic Testing: Radiology Impression Shoulder X-Ray 03/05/24 10:20 IMPRESSION: Nondisplaced fracture of the posterior glenoid. No left shoulder dislocation. Left PICC tip in the axilla. Electronically Signed: Tavia Ley MD at 13:00 EST Reading Location ID and State: [facility] / [place] Tel , Service support , Physical Exam Const alert, oriented x3 and no apparent distress Constitutional Narrative: frail General Appearance: cooperative HEENT normocephalic, head/scalp atraumatic, moist oral mucous membranes and oropharynx normal Eyes PERRL and EOMs intact bilaterally Neck no lymphadenopathy and supple Lymph Lymphatic: no lymphadenopathy noted and no lymphedema noted Resp normal respiratory effort, normal air movement and clear to auscultation bilaterally Cardio regular rate, regular rhythm, S1 normal heart sound, S2 normal heart sound and no murmurs Cardio Narrative: had bradycardia early this morning GI normal to inspection, nondistended, normoactive bowel sounds, soft to palpation and non-distended GI Narrative: tenderness has largely resolved Palpation: tender other (Generalized) Extremity normal capillary refill, no clubbing, cyanosis or edema and no calf tenderness Extremity Narrative: LUE in sling due to posterior glenoid fracture Skin General Skin Exam: no breakdown Neuro CN's II-XII intact bilaterally, no focal motor deficits and no sensory deficits noted Motor Exam: strength 5/5 throughout and general weakness Psych thought process normal, cooperative and affect normal Appearance: appropriate Assessment & Plan Assessment/Plan (1) Abdominal pain: PLAN: Plan # Abdominal pain due to ischemic colitis * Patient admitted with complains of abdominal pain. * CT of the abdomen showed dilatation of extrahepatic bile ducts. 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 * had EGD which showed erythematous mucosa in the gastric body and antrum as well as normal esophagus. * Being hydrated with IV fluid normal saline at 75 cc per/hr * On IV pantoprazole 40 mg twice daily * Stool for occult blood is also positive. GI on board. * per GI, for ERCP. * had colonoscopy on 03/04/2024 which showed patchy, moderate inflammation in the rectosigmoid colon, sigmoid colon and in the descending colon secondary to ischemic colitis as well as diverticulosis in the rectosigmoid colon, sigmoid colon, descending colon and splenic flexure and in the transverse colon, rectal prolapse and nonbleeding external hemorrhoids. * to keep BP up and maintain adequate hydration. * abdominal pain has largely resolved. * #Acute on chronic anemia: * s/p transfusion of 2 units of PRBCs * Hb today is 10.5. * EGD showed erythematous mucosa in the gastric antrum and body as well as normal esophagus. * colonoscopy as above * on IV pantoprazole. #left shoulder pain due to posterior glenoid fracture * Patient complained of left shoulder pain yesterday. She is able to move the left arm at the shoulder joint. * xray of the left shoulder showed a posterior glenoid fracture. * management of this likely nonoperative. * LUE in sling. PO tylenol and oxycodone prn for pain. * follow up with orthopedic surgery on outpatient basis. * * #Hyperlipidemia:on statin #CKD stage III: Creatinine at baseline. Will monitor. #History of paroxysmal A-fib: * On amiodarone and Eliquis. * Hold amiodarone due to effect on liver. Eliquis on hold. * Liver enzymes have normalized. However patient has episode of bradycardia so continue holding amiodarone. * #Secondary pulmonary hypertension: * Had known pulmonary artery systolic pressure of 50 mmHg from previous echoes. * Likely due to underlying heart failure. * Will monitor. #History of heart failure preserved ejection fraction: * Not in exacerbation. * Breathing treatments bronchodilators. * On Lasix. Lasix held today due to hypotension. #History of peripheral vascular disease * S/p peripheral vascular intervention but does not know exactly what was done as it was done in [place]. * Follow-up with vascular surgery on outpatient basis. * #DVT prophylaxis: SCDs. Eliquis held due to acute on chronic anemia. Resume when okay with GI Disposition: Awaiting placement. Charges/Coding Visit Charges Inpatient E&M: 29126 Subs Hosp L2
[2024-03-06 16:31] VITALS: PULSE 70
[2024-03-06 20:00] VITALS: BP 159/83; PULSE 51; RESP 19; TEMP 36.6; O2SAT 96
[2024-03-06] MEDS: Ensure Plus High Protein 120 ML LIQUID PO (21:18)
[2024-03-07] VITALS (19 sets, daily range): BP systolic 108–181; BP diastolic 50–95; PULSE 50–93; RESP 15–18; TEMP 36.1–36.5; O2SAT 95–100; BMI 21.8
[2024-03-07 07:18] LABS: Absolute Lymphocyte Count 0.85 X10^3/uL (0.83-4.51); Absolute Neutrophil Count 4.1 X10^3/uL (2.0-7.7); Basophil# 0.04 X10^3/uL; Basophil% 0.7 % (0-1); Eosinophil# 0.53 X10^3/uL; Eosinophils% 8.8 % (0-5); Hematocrit 33.8 % (37-47); Hemoglobin 11.3 g/dL (12.0-15.0); Lymphocyte # 0.85 X10^3/ul (0.83-4.51); Lymphocyte % 14.1 % (19-41); Mean Corp Hgb Conc 33.4 g/dL (32-36); Mean Corpuscular Hgb 30.1 pg (27.0-32.0); Mean Corpuscular Volume 90.1 fL (81-99); Monocyte# 0.43 X10^3/uL; Monocyte% 7.1 % (0-10); NRBC Flagged by Analyzer 0 % (0-5); Neutrophil # 4.13 X10^3/uL (2.7-7.7); Neutrophil % 68.6 % (47-70); Platelet Count 241 K/mm3 (150-450); RBC Distribution Width SD 58.7 fl (35.1-43.9); Red Blood Count 3.75 M/mm3 (4.2-5.4)
[2024-03-07] MEDS: hydrALAZINE 20 MG/ML Vial 5 MG IV ×2 (09:12→19:57)
[2024-03-07] MEDS: 0.9% Saline Lock 10 ML Syringe IV ×3 (09:12→17:29)
[2024-03-07] MEDS: 0.9% Normal Saline (1000mL) 1,000 ML 15 ML IV (12:00)
--- NOTE | 2024-03-07 12:24 | PRE.ANES_ITS ---
ASA Classification* ASA Classification ASA Classification: 4 Assessment & Plan Anesthesia* Anesthesia Assessment Anesthesia Assessment: Discussed sedation and/or anesthesia options, risks, benefits, and alternatives with patient/parents/legal guardian/POA. Questions invited. The patient/parents/legal guardian/POA seems to understand and agrees to proceed with anesthesia plan. Reviewed the physical assessment, medical history, allergy history and patient home medications list prior to surgery/procedure/anesthetic and documented any changes. Performed airway and anesthesia risk assessments. Anesthesia Type Anesthesia Type: General and MAC History Source History Obtained from:: Patient and Chart Anesthesia Focused Assessment* Temperature: 97.6 F Pulse Rate: 58 Blood Pressure: 150/85 Respiratory Rate: 16 Pulse Ox: 98 Oxygen Delivery Method: Room Air Airway Assessment Mouth opens: >3 cm Mallampati Score: II Teeth Condition: Dentures Neck Range of motion (ROM): Full ROM Focused Labs Anesthesia Preop lab: CBC WBC 6.0 K/mm3 (4.4-11.0) 03/07/24 06:35 RBC 3.75 M/mm3 (4.2-5.4) L 03/07/24 06:35 Hgb 11.3 g/dL (12.0-15.0) L 03/07/24 06:35 Hct 33.8 % (37-47) L 03/07/24 06:35 Plt Count 241 K/mm3 (150-450) 03/07/24 06:35 CHEMISTRY Potassium 3.9 mmol/L (3.5-5.1) 03/06/24 06:20 Sodium 140 mmol/L (136-145) 03/06/24 06:20 Magnesium 2.2 mg/dL (1.6-2.6) 03/01/24 07:12 Phosphorus 4.5 mg/dL (2.5-4.9) 02/24/24 05:40 BUN 22 mg/dL (7-18) H 03/06/24 06:20 Creatinine 1.16 mg/dL (0.55-1.02) H 03/06/24 06:20 Glucose 93 mg/dL (74-106) 03/06/24 06:20 POC Glucose 97 mg/dL (74-106) 02/29/24 16:06 TSH 3.370 uIU/mL (0.358-3.740) 02/23/24 06:04 COAG PT 16.7 SECONDS (11.7-14.9) H 02/25/24 05:09 Pre-Assessment Diagnosis/Proposed Procedure Planned Operative Procedure(s): Esophagogastroduodenoscopy Anesthesia History Anesthesia History - boring machine feeder: Anesthesia History - boring machine feeder Hx Hospitalization Any Problems With Anesthesia No 03/06/24 21:24 Cholinesterase deficiency No 03/06/24 21:24 You/Your Family Experience No 03/06/24 21:24 fever (hyperthermia) with Relationship Recent Exposure to Contagious No 03/06/24 21:24 Disease Does patient have nerve No 03/06/24 21:24 stimulator Patient instructed to have No 03/06/24 21:24 device shut off --Does patient have Pacemaker No 03/07/24 11:36 or ICD? When Was Last Pacemaker Check QUESTION #4 FULL TEXT: You/Your Family Experience fever (hyperthermia) with Anesthesia Last Oral Intake Last Oral intake: Last Oral Intake NPO since 00:00 03/07/24 11:36 Meds taken in AM with sips of No 03/07/24 11:36 water? Meds patient instructed to Neurontin, Protonix, ferrous 03/04/24 14:52 take am of surgery sulfate, Plaquenil PONV PONV - boring machine feeder: PONV - boring machine feeder Female HX of Motion Sickness HX of N/V After Surgery Non-Smoker Duration of Surgery greater than 60 minutes Number of Risk Factors PONV Score Height & Weight Height & Weight: Anesthesia: Height & Weight Height 4 ft 8 in 03/07/24 12:02 Weight: 44.1 kg 03/07/24 12:02 Body Mass Index (BMI) 21.8 03/07/24 11:36 Respiratory Assessment Respiratory Assessment - boring machine feeder: Respiratory Tract Infection Hx - boring machine feeder Hx Respiratory Tract Infection No 03/06/24 21:24 STOP Sleep Apnea STOP Sleep Apnea - boring machine feeder: STOP Sleep Apnea - boring machine feeder Hx Hypertension Yes 03/03/24 09:41 Hx Sleep Apnea No 03/04/24 17:05 CPAP BIPAP Do you snore loudly (louder No 02/29/24 22:26 than talking or can be heard Do you often feel tired/ Yes 02/29/24 22:26 fatigued/ sleepy during daytime? Has anyone observed you stop No 02/29/24 22:26 breathing during sleep? STOP Results Positive 03/04/24 16:45 QUESTION #5 FULL TEXT : Do you snore loudly (louder than talking or can be heard through closed doors)? Tobacco Use History Tobacco Use History - boring machine feeder: Tobacco Use History - boring machine feeder Tobacco Use Smoking Status Never smoker 02/29/24 22:26 Hx Tobacco Use No 02/29/24 22:26 Years Smoking Packs Smoked per Day Smoking Cessation Date was within the last 15 years Hx Smoking Cessation Date Hx Smoking Cessation No 02/29/24 22:26 Counseling Hematologic Medial History Hematologic Hx - boring machine feeder: Hematologic Medical Hx - business development specialist Hx of Blood Transfusion No 02/29/24 22:26 Hx of Transfusion in last 3 No 02/29/24 22:26 Months Date of Last Transfusion (if within last 3 months) Ever experience any problems No 02/29/24 22:26 with transfusion(s)? Specify any problems Hx of Preganancy in last 3 No 02/29/24 22:26 Months Nurse Filling Out Transfusion EVIZZO 02/29/24 22:26 & Questions: Date: 02/29/24 02/29/24 22:26 Time: 22:41 02/29/24 22:26 Patient unable to answer at this time (ie. confused, unrespo /Reproduction History /Reproductive History - boring machine feeder: /Reproductive Hx- boring machine feeder Hx Now No 03/06/24 21:24 Gestational Age (in weeks): EDC: Hx Hx Para Hx Section SAB No 03/01/24 12:29 Active Medications Active Medications: Current Medications Generic Name Dose Route Start Last Admin Trade Name Freq PRN Reason Stop Dose Admin Acetaminophen 650 mg 02/29/24 22:28 03/06/24 21:20 Acetaminophen 325 Mg Tablet PO 650 mg Q4H PRN PRN Administration Pain 1-10 Or Fever>99.6 Calamine/Phenol 1 applic 03/03/24 22:00 03/07/24 08:41 Menthol/Lanolin/Calamine/Znox 113 Gm Tube TOPICAL Not Given BID SAY Protocol Cholecalciferol 125 mcg 03/03/24 10:00 03/05/24 07:53 Cholecalciferol (Vit D3) 125 Mcg Capsule (5,000 Units) PO 125 mcg QODAY SAY Administration Cyanocobalamin 1,000 mcg 03/02/24 10:00 03/04/24 09:11 Cyanocobalamin 500 Mcg Tablet PO 1,000 mcg MoWeFr@1000 SAY Administration Ferrous Sulfate 325 mg 03/02/24 08:00 03/07/24 08:42 Ferrous Sulfate 325 Mg Tablet PO Not Given DAILYCM SAY Furosemide 40 mg 03/02/24 10:00 03/06/24 10:13 Furosemide 40 Mg Tablet PO 40 mg DAILY SAY Administration Protocol Gabapentin 300 mg 03/01/24 22:00 03/06/24 21:18 Gabapentin 300 Mg Capsule PO 300 mg BID SAY Administration Hydralazine HCl 5 mg 03/07/24 08:58 03/07/24 09:12 Hydralazine 20 Mg/Ml Vial IV 5 mg Q6H PRN PRN Administration SBP>160 Protocol Hydroxychloroquine Sulfate 200 mg 03/02/24 10:00 03/06/24 08:41 Hydroxychloroquine 200 Mg Tablet PO 200 mg DAILY SAY Administration Sodium Chloride 1,000 mls @ 15 mls/hr 03/07/24 11:55 03/07/24 12:00 IV 03/13/24 01:14 15 mls/hr .Q48H SAY Administration Protocol Morphine Sulfate 1 mg 02/29/24 22:28 03/01/24 14:48 Morphine 2 Mg/Ml Syringe IV 1 mg Q3H PRN PRN Administration Pain Score 6-10 Nutritional Formula (Lactose Free) 120 ml 03/01/24 10:00 03/07/24 08:41 Ensure Plus High Protein 120 Ml Liquid PO Not Given 4X/DAY [facility] Ondansetron HCl 4 mg 02/29/24 23:55 03/04/24 18:04 Ondansetron 4 Mg/2 Ml Vial IV 4 mg Q8H PRN PRN Administration NAUSEA/VOMITING Pantoprazole Sodium 40 mg 03/04/24 10:00 03/06/24 21:18 Pantoprazole Sodium 40 Mg Tablet PO 40 mg BID SAY Administration Senna/Docusate Sodium 2 tablet 03/01/24 14:56 Senna/Docusate Sodium 1 Tablet PO BID PRN Constipation Sodium Chloride 10 - 40 ml 02/29/24 22:26 03/07/24 09:12 0.9% Saline Lock 10 Ml Syringe IV 10 ml UD PRN Administration SALINE FLUSH PFSH Medical History Debility CKD stage 3b, 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 CVA (cerebral vascular accident) 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, sinus Hyperlipidemia Aortic valve disease Cardiac arrhythmia Fibromyalgia CKD (chronic kidney disease) stage 3, GFR 30-59 ml/min Rheumatoid arthritis Osteoporosis Afib Essential (primary) hypertension Shoulder pain with history of repair of rotator cuff Sjogren syndrome Home Medications ?Medication ?Instructions ?Recorded ?Last Taken ?Type atorvastatin 40 mg tablet 40 mg PO DAILY cholesterol 09/07/23 02/21/24 History cholecalciferol (vitamin D3) 125 125 mcg PO QODAY supplement 09/07/23 02/22/24 History mcg (5,000 unit) capsule ferrous sulfate 325 mg (65 mg 325 mg PO DAILY supplement 09/07/23 02/21/24 History iron) tablet gabapentin 300 mg capsule 300 mg PO BID Nerve pain 09/07/23 02/22/24 History lisinopril 40 mg tablet 40 mg PO DAILY BP 09/07/23 02/22/24 History mecobalamin (vitamin B12) 1,000 1,000 mcg PO QMWF supplement 09/07/23 02/22/24 History mcg chewable tablet hydroxychloroquine 200 mg tablet 200 mg PO DAILY Immunosupressive 01/27/24 Unknown History furosemide 40 mg tablet 40 mg PO DAILY fluid pill #30 tabs 01/30/24 02/22/24 Rx acetaminophen 325 mg tablet 650 mg (2 x 325 mg) PO Q4H PRN PRN 02/25/24 Unknown Rx Pain 1-10 Or Fever>99.6 #0 tabs apixaban 5 mg tablet (Eliquis) 2.5 mg (1/2 x 5 mg) PO BID 02/25/24 Unknown Rx afib/prevent clots #0 tabs aspirin 81 mg chewable tablet 81 mg PO BREAKFAST blood thinner 02/25/24 Unknown Rx 30 days #0 tabs ondansetron 4 mg disintegrating 4 mg PO Q6H PRN nausea and 02/25/24 Unknown Rx tablet vomiting #30 tabs sennosides 8.6 mg-docusate sodium 2 tab PO BID PRN Constipation #0 02/25/24 Unknown Rx 50 mg tablet (Stimulant Laxative tabs Plus) Allergy/AdvReac Type Severity Reaction Status Date / Time ciprofloxacin (From Cipro) Allergy Intermediate NEEDS Verified 02/22/24 20:23 FOLLOW-UP duloxetine Allergy Intermediate NEEDS Verified 02/22/24 20:23 FOLLOW-UP ibuprofen Allergy Intermediate NEEDS Verified 02/22/24 20:23 FOLLOW-UP meloxicam Allergy Intermediate NEEDS Verified 02/22/24 20:23 FOLLOW-UP Penicillins Allergy Intermediate NEEDS Verified 02/22/24 20:23 FOLLOW-UP sulfamethoxazole (From Allergy Intermediate NEEDS Verified 02/22/24 20:23 Septra) FOLLOW-UP trimethoprim (From Septra) Allergy Intermediate NEEDS Verified 02/22/24 20:23 FOLLOW-UP Surgical History History of appendectomy History of cardiac radiofrequency ablation (RFA) S/P hernia repair Social History household members: family housing: house Smoking Status: Never smoker alcohol intake: never substance use type: does not use Review of Systems (Anesthesia) ROS Narrative System reviewed and no additional complaints, except as documented.
--- NOTE | 2024-03-07 13:11 | PN.GI_ITS ---
Subjective Subjective Patient is still having intermittent abdominal pain. Appetite is not that good. Objective Data Objective Data Vital Signs: Vital Signs Temp Pulse Resp BP Pulse Ox O2 Del Method 97.6 F L 58 L 16 150/85 H 98 Room Air 03/07/24 12:26 03/07/24 12:26 03/07/24 12:26 03/07/24 12:26 03/07/24 12:03/07/24 12:26 Oxygen Delivery Method Room Air Weight: 97 lb 3.582 oz Body Mass Index (BMI) 21.8 Intake & Output: Intake and Output for Last 24 Hours 03/05/24 03/06/24 03/07/24 23:59 23:59 23:59 Intake Total 300 / 300 0 / 0 Balance 300 / 300 0 / 0 Lab / Micro Data 03/07/24 06:35 03/06/24 06:20 Labs: Laboratory Results - last 24 hr 03/07/24 06:35: WBC 6.0, RBC 3.75 L, Hgb 11.3 L, Hct 33.8 L, MCV 90.1, MCH 30.1, MCHC 33.4, RDW Std Deviation 58.7 H, RDW Coeff of Rohit 18.0 H, Plt Count 241, MPV 9.0, Immature Gran % (Auto) 0.700, Neut % (Auto) 68.6, Lymph % (Auto) 14.1 L, [place] % (Auto) 7.1, Eos % (Auto) 8.8 H, Baso % (Auto) 0.7, Absolute Neuts (auto) 4.1, Absolute Lymphs (auto) 0.85, Nucleated RBC % 0 Physical Exam Const alert, oriented x3 and no apparent distress Constitutional Narrative: frail General Appearance: cooperative HEENT normocephalic, head/scalp atraumatic, moist oral mucous membranes and oropharynx normal Eyes PERRL and EOMs intact bilaterally Neck no lymphadenopathy and supple Lymph Lymphatic: no lymphadenopathy noted and no lymphedema noted Resp normal respiratory effort, normal air movement and clear to auscultation bilaterally Cardio regular rate, regular rhythm, S1 normal heart sound, S2 normal heart sound and no murmurs Cardio Narrative: had bradycardia early this morning GI normal to inspection, nondistended, normoactive bowel sounds, soft to palpation and non-distended GI Narrative: tenderness has largely resolved Palpation: tender other (Generalized) Extremity normal capillary refill, no clubbing, cyanosis or edema and no calf tenderness Extremity Narrative: LUE in sling due to posterior glenoid fracture Skin General Skin Exam: no breakdown Neuro CN's II-XII intact bilaterally, no focal motor deficits and no sensory deficits noted Motor Exam: strength 5/5 throughout and general weakness Psych thought process normal, cooperative and affect normal Appearance: appropriate Assessment & Plan Assessment/Plan (1) Abdominal pain: PLAN: Plan 88-year-old with acute onset abdominal pain discovered to have decreasing hemoglobin. Her CT scan abdomen pelvis showed dilated common bile ducts. Her LFTs were mildly elevated. Awaiting MRCP. Because of her anemia and abdominal pain. We will wait on the MRCP and we will perform an upper endoscopy. * Her mainly in the epigastric and right upper quadrant region. * CT of the abdomen showed dilatation of extrahepatic bile ducts. * MRCP ordered * Being hydrated with IV fluid normal saline at 75 cc per/hr * On IV pantoprazole 4 mg twice daily * So focal blood is also positive. * She will undergo an EGD and possibly colonoscopy plus or minus ERCP. She was explained alternatives, benefits, risk including withstanding bleeding, infection, sepsis, perforation, need for surgery . She will have an ASA of 3. 03/01/2024-abdominal pain is improved. Her hemoglobin went from 7.7-9.6 and currently is back down to 8.5. Continue to hold anticoagulation and antiplatelet therapy. N.p.o. for EGD today. 03/03/2024: Patient underwent an upper endoscopy yesterday. She is not having abdominal pain at this time. However her hemoglobin keeps going down. She did have an MRCP that showed dilated common bile duct possibly secondary to a stricture. Findings: The examined esophagus was normal. Diffuse mildly erythematous mucosa without bleeding was found in the gastric body and in the gastric antrum. No gross lesions were noted in the second portion of the duodenum. Impression: - Normal esophagus. - Erythematous mucosa in the gastric body and antrum. - No gross lesions in the second portion of the duodenum. - No specimens collected. Recommendation: - [facility] care. - Full liquid diet. - Continue present medications. Continue prep for colonoscopy tomorrow. 03/04/2024-plan is for colonoscopy today. All questions were answered. Findings from colonoscopy: The perianal and digital rectal examinations were normal. Patchy moderate inflammation characterized by erythema, friability and granularity was found in the recto-sigmoid colon, in the sigmoid colon and in the descending colon. Biopsies were taken with a cold forceps for histology. Verification of patient identification for the specimen was done. Estimated blood loss was minimal. Multiple small and large-mouthed diverticula were found in the recto-sigmoid colon, sigmoid colon, descending colon, splenic flexure and transverse colon. Moderate rectal prolapse was present. Non-bleeding internal hemorrhoids were found during retroflexion. The hemorrhoids were Grade III (internal hemorrhoids that prolapse but require manual reduction). Impression: - Patchy moderate inflammation was found in the recto-sigmoid colon, in the sigmoid colon and in the descending colon secondary to ischemic colitis. Biopsied. - Diverticulosis in the recto-sigmoid colon, in the sigmoid colon, in the descending colon, at the splenic flexure and in the transverse colon. - Rectal prolapse. - Non-bleeding internal hemorrhoids. Cholelithiasis with mild extrahepatic biliary ductal dilatation and no obvious stones, mass or stricture. This could be secondary to a recently passed or occult stone. Consider ERCP. Two T2 hyperintense cystic lesions in the pancreas, one in the body measuring 5 mm while the other in the tail measuring 1.2 cm. No main pancreatic duct dilatation. 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 Per ACR white paper criteria, no follow-up recommended to patient''s advanced age. Patient will undergo ERCP for evaluation of findings on MRCP. Patient patient family explained alternatives, risk and benefits include understanding bleeding, infection, sepsis, perforation, need for urgent . She will have an ASA of 3. Charges/Coding Visit Charges Inpatient E&M: 65203 Subs Hosp L3
--- NOTE | 2024-03-07 13:30 | RAD_ITS ---
Fluoroscopic-guided ERCP INDICATION: Pain TECHNIQUE: Fluoroscopic guided ERCP was performed in usual fashion by motor coach driver. Fluoroscopic time utilized was 76.2 seconds. DLP was 12.28mgy FINDINGS: Fluoroscopic-guided ERCP was performed in the anterior projection. 10 fluoroscopic guided images were obtained in the AP projection during the study to document findings during the procedure. For more complete information recommend correlation with motor coach driver notes RAD/ERCP Biliary/Pancreas IMPRESSION: Fluoroscopic guided ERCP Electronically Signed: Cj Rodney MD at 16:54 EST ,
--- NOTE | 2024-03-07 14:55 | OP.CCLET_ITS ---
03/07/2024 Kari Bolivar Re : ERCP procedure for Mckenna Evans Dear Erick This procedure was performed on Thursday, March 07, 2024. 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 The stricture was indeterminate. - The entire biliary tree was dilated, acquired. - An irregularity was found in the pancreatic duct in the body of the pancreas and pancreatic duct in the tail of the pancreas. - Choledocholithiasis was found. Complete removal was accomplished by biliary sphincterotomy and balloon extraction. - A pancreatic sphincterotomy was performed. - The biliary tree was swept and debris was found. - A biliary sphincterotomy was performed. - The biliary tree was swept. - One temporary stent was placed into the common bile duct. Recommendations : My findings are described in the full procedure note, which is enclosed. If I can be of further assistance, please feel free to contact me at . Sincerely, Joe Patterson, 03/07/2024 2:54:58 PM This report has been signed electronically.
--- NOTE | 2024-03-07 14:55 | OP.ERCP_ITS ---
Patient Name: Mckenna Evans Procedure Date: 03/07/2024 1:22 PM Date of : 1935 Age: 88 Procedure: ERCP Indications: Abdominal pain of suspected biliary origin, Abdominal pain of suspected biliary or pancreatic origin, Abnormal MRCP, Stenting biliary / pancreatic ducts Providers: Joe Patterson DO Referring MD: Saleem Child MD Medicines: See the Anesthesia note for documentation of the administered medications Patient Profile: This is an 88 year old female. Refer to note in patient chart for documentation of history and physical. Patient has symptoms of acute right upper quadrant abdominal pain. Previously obtained MRI showed a stricture in the biliary tree and a dilation in the biliary tree. Complications: No immediate complications. Procedure: Pre-Anesthesia Assessment: - Prior to the procedure, a History and Physical was performed, and patient medications and allergies were reviewed. The patient is competent. The risks and benefits of the procedure and the sedation options and risks were discussed with the patient. All questions were answered and informed consent was obtained. Patient identification and proposed procedure were verified by the physician in the pre-procedure area. Mental Status Examination: alert and oriented. Airway Examination: normal oropharyngeal airway and neck mobility. Respiratory Examination: clear to auscultation. CV Examination: normal. Prophylactic Antibiotics: The patient does not require prophylactic antibiotics. Prior Anticoagulants: The patient has taken no anticoagulant or antiplatelet agents except for NSAID medication. ASA Grade Assessment: III - A patient with severe systemic disease. After reviewing the risks and benefits, the patient was deemed in satisfactory condition to undergo the procedure. The anesthesia plan was to use general anesthesia. Immediately prior to administration of medications, the patient was re-assessed for adequacy to receive sedatives. The heart rate, respiratory rate, oxygen saturations, blood pressure, adequacy of pulmonary ventilation, and response to care were monitored throughout the procedure. The physical status of the patient was re-assessed after the procedure. After obtaining informed consent, the scope was passed under direct vision. Throughout the procedure, the patient's blood pressure, pulse, and oxygen saturations were monitored continuously. The Duodenoscope was introduced through the mouth, and advanced to the duodenum and used to inject contrast into the bile duct and ventral pancreatic duct. The ERCP was accomplished without difficulty. The patient tolerated the procedure well. Scope In: 1:51:34 PM Scope Out: 2:46:34 PM Total Procedure Duration Time 0 hours 55 minutes 0 seconds Findings: The technical marketing consultant film was normal. The esophagus was successfully intubated under direct vision. The scope was advanced to a normal major papilla in the descending duodenum without detailed examination of the pharynx, larynx and associated structures, and upper GI tract. The upper GI tract was grossly normal. The ventral pancreatic duct was deeply cannulated with the short-nosed traction sphincterotome. Contrast was injected. I personally interpreted the pancreatic duct images. There was brisk flow of contrast through the ducts. Image quality was adequate. Contrast extended to the pancreatic duct. Opacification of the entire pancreatic ductal system was successful. The maximum diameter of the ducts was 3 mm. Localized irregularity of the pancreatic duct was seen in the pancreatic duct in the body of the pancreas and pancreatic duct in the tail of the pancreas. A long 0.025 inch Jagwire was passed into the ventral pancreatic duct. A 5 mm ventral pancreatic sphincterotomy was made with a traction (standard) sphincterotome using ERBE electrocautery. There was no post-sphincterotomy bleeding. To discover objects, the biliary tree was swept with a 6 mm balloon starting at the main pancreatic duct. Debris was swept from the duct. An 0.018 inch straight Glidewire was passed into the biliary tree. The tapered sphincterotome was passed over the guidewire and the bile duct was then deeply cannulated. Contrast was injected. Opacification of the entire opacified area, right main hepatic duct and entire biliary tree was successful. The maximum diameter of the ducts was 15 mm. The lower third of the main bile duct contained a single localized stenosis 6 mm in length. The entire opacified area and entire biliary tree were diffusely dilated, acquired. The largest diameter was 13 mm. A 5 mm biliary sphincterotomy was made with a traction (standard) sphincterotome using ERBE electrocautery. There was no post-sphincterotomy bleeding. To discover objects, the biliary tree was swept with a 12 mm balloon starting at the upper third of the main bile duct, middle third of the main bile duct, lower third of the main duct, left main hepatic duct and main pancreatic duct. Sludge was swept from the duct. All stones were removed. One 10 Fr by 5 cm temporary stent was placed 5 cm into the common bile duct. Bile flowed through the stent. The stent was in good position. 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 The stricture was indeterminate. - The entire biliary tree was dilated, acquired. - An irregularity was found in the pancreatic duct in the body of the pancreas and pancreatic duct in the tail of the pancreas. - Choledocholithiasis was found. Complete removal was accomplished by biliary sphincterotomy and balloon extraction. - A pancreatic sphincterotomy was performed. - The biliary tree was swept and debris was found. - A biliary sphincterotomy was performed. - The biliary tree was swept. - One temporary stent was placed into the common bile duct. Procedure Code(s): --- Professional --- 45844, Endoscopic retrograde cholangiopancreatography (ERCP); with placement of endoscopic stent into biliary or pancreatic duct, including pre- and post-dilation and guide wire passage, when performed, including sphincterotomy, when performed, each stent [id number], 51, Endoscopic retrograde cholangiopancreatography (ERCP); with removal of calculi/debris from biliary/pancreatic duct(s) 66407, 59, Endoscopic retrograde cholangiopancreatography (ERCP); with sphincterotomy/papillotomy 79328, 26, Endoscopic catheterization of the pancreatic ductal system, radiological supervision and interpretation CPT copyright 2021 [employer]. All rights reserved. The codes documented in this report are preliminary and upon supervisor carding review may be revised to meet current compliance requirements. Joe Patterson DO 03/07/2024 2:54:58 PM This report has been signed electronically. Number of Addenda: 0 Note Initiated On: 03/07/2024 1:22 PM
--- NOTE | 2024-03-07 14:58 | PCM.POST.ANE ---
Anesthesia: Postop Eval I Current Vital Signs Temperature: 97.2 F Pulse Rate: 65 Blood Pressure: 143/55 Respiratory Rate: 18 Pulse Ox: 98 Assessment Airway patent: Yes Spontaneous unlabored respirations: Yes nausea: No Vomiting: No Anesthesia Complication: No Fluid Hydration Crystalloid volume administer (ml): 500 Total IV fluid infused: 500 Progress Note Anesthesia document: Postop Eval 1 completed: Yes
--- NOTE | 2024-03-07 14:59 | POSTOPAN2_ITS ---
Anesthesia Postop Eval I Sum Postop Eval Completion status Anesthesia document: Postop Eval 1 completed: Yes Anesthesia Postop Eval I Summary Anesthesia Postop Eval I Summary: Anesthesia Postop Eval I: Assessment Summary Airway patent Yes 03/07/24 14:58 POULTRY HATCHERY MAN.CSIR Spontaneous unlabored Yes 03/07/24 14:58 POULTRY HATCHERY MAN.CSIR respirations Mental status Awake 03/04/24 17:08 POULTRY HATCHERY MAN.CSIR nausea No 03/07/24 14:58 POULTRY HATCHERY MAN.CSIR Vomiting No 03/07/24 14:58 POULTRY HATCHERY MAN.CSIR Anesthesia Postop Eval I: Fluid Summary Crystalloid volume administer 500 03/07/24 14:58 POULTRY HATCHERY MAN.CSIR (ml) Colloids volume administered ( ml) Blood Product volume administered (ml) Total IV fluid infused 500 03/07/24 14:58 POULTRY HATCHERY MAN.CSIR Anesthesia Postop Eval I: Summary Notes Anesthesia Complication No 03/07/24 14:58 POULTRY HATCHERY MAN.CSIR Anesthesia Complication Comment: Post-operative progress note Anesthesia: Postop Eval II Evaluation Mental status: Awake Pain Level: 0 nausea: No Vomiting: No
--- NOTE | 2024-03-07 14:59 | PCM.POSTANE2 ---
Anesthesia Postop Eval I Sum Postop Eval Completion status Anesthesia document: Postop Eval 1 completed: Yes Anesthesia Postop Eval I Summary Anesthesia Postop Eval I Summary: Anesthesia Postop Eval I: Assessment Summary Airway patent Yes 03/07/24 14:58 SENIOR PROJECT MANAGER ENGINEERING.CSIR Spontaneous unlabored Yes 03/07/24 14:58 SENIOR PROJECT MANAGER ENGINEERING.CSIR respirations Mental status Awake 03/04/24 17:08 SENIOR PROJECT MANAGER ENGINEERING.CSIR nausea No 03/07/24 14:58 SENIOR PROJECT MANAGER ENGINEERING.CSIR Vomiting No 03/07/24 14:58 SENIOR PROJECT MANAGER ENGINEERING.CSIR Anesthesia Postop Eval I: Fluid Summary Crystalloid volume administer 500 03/07/24 14:58 SENIOR PROJECT MANAGER ENGINEERING.CSIR (ml) Colloids volume administered ( ml) Blood Product volume administered (ml) Total IV fluid infused 500 03/07/24 14:58 SENIOR PROJECT MANAGER ENGINEERING.CSIR Anesthesia Postop Eval I: Summary Notes Anesthesia Complication No 03/07/24 14:58 SENIOR PROJECT MANAGER ENGINEERING.CSIR Anesthesia Complication Comment: Post-operative progress note Anesthesia: Postop Eval II Evaluation Mental status: Awake Pain Level: 0 nausea: No Vomiting: No
--- NOTE | 2024-03-07 17:14 | CASEMGMT ---
Social Work Precert started today for pt to admit to TCU. Plan: TCU, pending precert ANSELMO Macdonald
[2024-03-07] MEDS: Haloperidol Lactate 5 MG/ML Vial 1 MG IV (17:28)
[2024-03-07] MEDS: Ondansetron 4 MG/2 ML Vial IV (19:38)
--- NOTE | 2024-03-07 19:41 | PCM.PN.HOSP ---
Reason for Visit Reason for Visit: Abdominal pain Subjective Subjective Mrs. Evans is an 88-year-old white female who was admitted initially on 02/22/2024 and discharged to the transitional care unit on 02/25/2024 at which time she was found to have new stroke. She also had JOANNA at that time. She was discharged to transitional care unit for ongoing rehab on Eliquis. On 02/29/2024 she was noted to be positive for blood in her stool and her Eliquis was held. She then complained of abdominal pain and some right-sided weakness so she was transferred to the emergency department for evaluation. CT of her head was unremarkable and CT of the abdomen pelvis showed ileitis with fecal retention. MRCP was also recommended in the CT report as there were apparent dilated ducts. The patient denied any fevers, chills, nausea, or vomiting. Hemoglobin at that time was 9.6. Vital signs were overtly unremarkable and stable when compared to previous. She was admitted to the medical floor and GI was consulted and recommended proceeding with an EGD which was performed on 03/01/2024 and demonstrated normal esophagus, erythematous mucosa in the gastric body and antrum, no gross lesions to the second portion of the duodenum with no biopsies taken. Given and overtly unremarkable EGD and colonoscopy was recommended and patient did have a couple episodes of bleeding with the prep. On colonoscopy she was found to have patchy moderate inflammation in the rectosigmoid, sigmoid, and descending colon secondary to ischemic colitis which was biopsied. She was also found to have diverticulosis in the rectosigmoid, sigmoid, descending, splenic flexure and transverse colon. Rectal prolapse was also noted. She had nonbleeding internal hemorrhoids. It was felt that her GI bleeding was related to ischemic colitis. Patient is clinically improving with reduction in her abdominal pain. Given her dilated ducts and MRCP requesting ERCP it was felt to be prudent to do her while hospitalized so she was taken to ERCP today. Patient did have some postprocedural nausea. She states is better with the one-time dose of Haldol that she got. Zofran was ineffective. She is tolerating ice chips and some Sprite without difficulty at this time. Objective Data Objective Data Vital Signs: Vital Signs Temp Pulse Resp BP Pulse Ox O2 Del Method 97.5 F L 70 15 145/59 H 95 Room Air 03/07/24 18:19 03/07/24 18:19 03/07/24 18:19 03/07/24 18:19 03/07/24 18:19 03/07/24 18:19 Oxygen Delivery Method Room Air Weight: 44.1 kg Body Mass Index (BMI) 21.8 Intake & Output: Intake and Output for Last 24 Hours 03/05/24 03/06/24 03/07/24 23:59 23:59 23:59 Intake Total 300 / 300 50 / 50 Output Total 250 / 250 Balance 300 / 300 -200 / -200 Lab / Micro Data 03/07/24 06:35 03/06/24 06:20 Labs: Laboratory Results - last 24 hr 03/07/24 06:35: WBC 6.0, RBC 3.75 L, Hgb 11.3 L, Hct 33.8 L, MCV 90.1, MCH 30.1, MCHC 33.4, RDW Std Deviation 58.7 H, RDW Coeff of Rohit 18.0 H, Plt Count 241, MPV 9.0, Immature Gran % (Auto) 0.700, Neut % (Auto) 68.6, Lymph % (Auto) 14.1 L, [place] % (Auto) 7.1, Eos % (Auto) 8.8 H, Baso % (Auto) 0.7, Absolute Neuts (auto) 4.1, Absolute Lymphs (auto) 0.85, Nucleated RBC % 0 Physical Exam Const alert, oriented x3, no apparent distress and average body habitus Constitutional Narrative: Frail-appearing, elderly, white female, sitting up in bed, appears comfortable currently, nontoxic HEENT head/scalp atraumatic and moist oral mucous membranes HEENT Narrative: Mallampati 2, no thrush Head and Scalp: normocephalic Resp normal respiratory effort, no retractions, no use of accessory muscles and clear to auscultation bilaterally Auscultation: Negative for rales, rhonchi or wheezes Cardio regular rate, regular rhythm, S1 normal heart sound, S2 normal heart sound, no murmurs, no rub, no gallops and no clicks GI normal to inspection, nondistended, normoactive bowel sounds and soft to palpation; Negative for non-tender GI Narrative: Mild diffuse tenderness at this time Extremity no clubbing, cyanosis or edema Extremity Narrative: Pedal pulses are 2+, radial pulses are 2+ Neuro oriented x3, moves all extremities and no focal motor deficits Neuro Narrative: Patient with resting tremor noted that does not dissipate with movement Speech: speech normal Psych affect normal Psych Narrative: Very pleasant, interacts appropriately Assessment & Plan Assessment/Plan (1) Abdominal pain: (2) Ischemic colitis: (3) Iron deficiency anemia: (4) Choledocholithiasis: PLAN: Plan Lower GI bleed secondary to ischemic colitis -Hemoglobin is now clinically stable -EGD was overtly unremarkable -Ischemic colitis noted on colonoscopy -Discontinue Protonix with relatively unremarkable EGD -Colonoscopy-03/04/2024 which showed patchy, moderate inflammation in the rectosigmoid colon, sigmoid colon and in the descending colon secondary to ischemic colitis as well as diverticulosis in the rectosigmoid colon, sigmoid colon, descending colon and splenic flexure and in the transverse colon, rectal prolapse and nonbleeding external hemorrhoids -Will continue to hold Eliquis and discuss further with GI after ERCP -Continue to maintain adequate hydration and blood pressure slightly high to help with ischemic colitis -Clinically much improved Acute on chronic anemia -Baseline hemoglobin appears to run between 8 and 10 -Cheko during hospitalization was 6.5 for which she received 2 units packed red blood cells -Hemoglobin is now 11.3 and relatively stable -Clinically no signs of bleeding and ongoing Dilated biliary ducts -LFTs and bilirubin normal -ERCP done today and showed a single localized biliary stricture in the lower third of the main bile duct with the entire biliary tree dilated, irregularity and pancreatic duct, choledocholithiasis with complete removal of the stone via biliary sphincterotomy and balloon extraction as well as a pancreatic sphincterotomy and 1 temporary stent and common bile duct -Will need outpatient follow-up -Will start Eliquis when okay with GI Recent left posterior circulation strokes -MRI from 02/20/2024 showed 2 small acute infarcts in the central and posterior aspect of the left cerebellar lobe and 1 in the left occipital lobe -The patient has had previous echocardiogram with negative bubble study so will not repeat at this time -CTA of the head and neck shows atherosclerotic disease without evidence of hemodynamically significant stenosis or major vessel occlusion and plaque is minimal to moderate in the carotid arteries -DOAC on hold due to GI bleeding -aspirin on hold due to GI bleeding -Will need ongoing rehab at transitional care unit and plan is for transfer back there once pre-CERT is obtained -Hopeful for discharge in the next 24 to 48 hours Left shoulder pain -X-rays confirmed posterior glenoid fracture neck-patient is able to move her left arm -Management is nonoperative -Continue left upper extremity sling and outpatient follow-up with orthopedic surgery -Continue as needed oral pain medication for pain management -Avoid NSAIDs CKD stage IIIb -Outpatient lisinopril on hold per nephrology recommendations -Creatinine is currently stable -Okay to continue home diuretic Tremor -Doubt the tremor is related to acute strokes -Recommend outpatient follow-up with neurology Paroxysmal atrial fibrillation -In sinus rhythm on presentation -Eliquis on hold due to GI bleed -Will discuss further with gastroenterology to ascertain when to reinitiate -Beta-alex and amiodarone were discontinued due to bradycardia -Cardiology is monitoring for need of pacemaker Diabetic neuropathy -Continue home gabapentin Chronic HFpEF/pulmonary hypertension -Echocardiogram from 12/20/2023 shows an EF of 55% with a negative bubble study, mild to moderate eccentric mitral valve insufficiency and pulmonary systolic pressure of 60 mmHg read with diffuse aortic valve thickening -Diuretics on hold due to JOANNA Essential hypertension/hyperlipidemia -Continue Lasix -Continue as needed hydralazine -Restart statin RA/Sjogren's syndrome -Continue home Plaquenil DVT prophylaxis -SCDs with holding Eliquis due to GI bleed CODE STATUS -DNR CCA with no intubation Charges/Coding Visit Charges Inpatient E&M: 76890 Subs Hosp L2
[2024-03-07] MEDS: Acetaminophen 325 MG Tablet 650 MG PO (19:58)
[2024-03-07] MEDS: Gabapentin 300 MG Capsule PO (22:02)
[2024-03-07] MEDS: Menthol/Lanolin/Calamine/Znox 113 GM Tube 1 APPLIC TOPICAL (22:02)
[2024-03-08] VITALS (10 sets, daily range): BP systolic 123–175; BP diastolic 49–81; PULSE 50–75; RESP 16–18; TEMP 36.3–36.8; O2SAT 97–100
[2024-03-08] MEDS: Acetaminophen 325 MG Tablet 650 MG PO (02:17)
[2024-03-08 07:58] LABS: Absolute Lymphocyte Count 0.74 X10^3/uL (0.83-4.51); Absolute Neutrophil Count 12.3 X10^3/uL (2.0-7.7); Basophil# 0.01 X10^3/uL; Basophil% 0.1 % (0-1); Hematocrit 37.5 % (37-47); Hemoglobin 11.9 g/dL (12.0-15.0); Lymphocyte # 0.74 X10^3/ul (0.83-4.51); Lymphocyte % 5.4 % (19-41); Mean Corp Hgb Conc 31.7 g/dL (32-36); Mean Corpuscular Hgb 29.3 pg (27.0-32.0); Mean Corpuscular Volume 92.4 fL (81-99); Mean Platelet Vol. 8.7 fl (6.2-12.0); Monocyte# 0.54 X10^3/uL; NRBC Flagged by Analyzer 0 % (0-5); Neutrophil # 12.29 X10^3/uL (2.7-7.7); Neutrophil % 90.1 % (47-70); Platelet Count 283 K/mm3 (150-450); RBC Distribution Width CV 18.6 % (11.6-14.6); RBC Distribution Width SD 62.3 fl (35.1-43.9); Red Blood Count 4.06 M/mm3 (4.2-5.4); White Blood Count 13.6 K/mm3 (4.4-11.0)
[2024-03-08] MEDS: Ferrous Sulfate 325 MG Tablet PO (08:03)
[2024-03-08 09:24] LABS: ALB/GLOB Ratio 0.8 RATIO (0.9-2.4); AST(SGOT) 16 U/L (15-37); Alanine Aminotransfer ALT/SGPT 30 U/L (13-56); Albumin, Serum 2.9 g/dL (3.2-5.0); Alkaline Phosphatase 71 U/L (45-117); Anion Gap 12 (5-15); BUN 28 mg/dL (7-18); BUN/Creat Ratio 22.8 RATIO (10-20); Calcium,Total 9.1 mg/dL (8.5-10.1); Chloride 108 mmol/L (98-107); Creatinine, Serum 1.23 mg/dL (0.55-1.02); EST Glomerular Filtration Rate 44 mL/min (>60); Est Glom Filt Rate - Afr Amer 53 mL/min (>60); Estimated Creatinine Clearance 22.86 ml/min; Globulin 3.6 g/dL (2.2-4.2); Glucose 130 mg/dL (74-106); Magnesium 1.9 mg/dL (1.6-2.6); Phosphorus 4.6 mg/dL (2.5-4.9); Potassium 4.1 mmol/L (3.5-5.1); Protein, Total 6.5 g/dL (6.4-8.2); Sodium Level 139 mmol/L (136-145)
[2024-03-08] MEDS: Menthol/Lanolin/Calamine/Znox 113 GM Tube 1 APPLIC TOPICAL ×2 (10:34→20:15)
[2024-03-08] MEDS: Gabapentin 300 MG Capsule PO ×2 (10:35→20:18)
[2024-03-08] MEDS: Furosemide 40 MG Tablet PO (10:35)
[2024-03-08] MEDS: Hydroxychloroquine 200 MG Tablet PO (10:35)
[2024-03-08] MEDS: Atorvastatin Calcium 40 MG Tablet PO (10:35)
--- NOTE | 2024-03-08 13:09 | CHAPLAIN ---
Type of Pastoral Visit ___ Initial Visit _x__ Follow-up Visit ___ On-call Visit ___ General Patient Visit ___ Spiritual Assessment ___ Family Conference ___ Bereavement ___ Rapid Response ___ Code Blue ___ Other (describe below) Pastoral Care Referral From _x__ Patient ___ Family ___ Nurse ___ Physician ___ Gas Cutting Machine Operator ___ Utilities Ground Worker ___ Other (describe below) Sacrament/Intervention _x__ Active listening ___ Anointing ___ Catholic ___ Bereavement ___ Communion _x__ Karlene exploration ___ _x__ Life review _x__ Prayer ___ Reconciliation ___ Sacrament of Sick ___ Supportive presence ___ Wedding ___ Other (describe below) Pastoral Comments this is a follow up visit made to patient that likes to have company and someone to talk with; pt takes over the conversation with much life review and much that is repeated from previous visits; pt is always pleasant and reflects on her karlene and how it is God that carried her through serious traumas of life; patient welcomes prayers
[2024-03-08] MEDS: hydrALAZINE 20 MG/ML Vial 5 MG IV (14:15)
[2024-03-08] MEDS: 0.9% Saline Lock 10 ML Syringe IV (14:15)
[2024-03-08] MEDS: amLODIPine 5 MG Tablet PO (16:11)
--- NOTE | 2024-03-08 16:22 | CASEMGMT ---
Social Work Precert still has not been attained for pt to go to TCU. Ninfa in TCU has contacted pt's insurance throughout the day, but we still have not heard back. SW spoke w/pt and granddaughter Anna in the room, let them know we are still waiting to hear back from insurance. We talked about the possibility of insurance denying the precert, they would want a peer to peer should it be denied, pt states she cannot care for herself at present. SW will continue to follow. RICKIE Campos
--- NOTE | 2024-03-08 18:52 | PCM.PN.HOSP ---
Reason for Visit Reason for Visit: Abdominal pain Subjective Subjective Nausea has resolved and was able to eat a complete breakfast without any difficulty. Patient is feeling well and has no significant abdominal pain this time. She states she has a little residual discomfort but nothing significant. Awaiting pre-CERT for return to transitional care unit. Labs are all stable. Objective Data Objective Data Vital Signs: Vital Signs Temp Pulse Resp BP Pulse Ox O2 Del Method 97.9 F 71 18 145/63 H 99 Room Air 03/08/24 14:08 03/08/24 16:08 03/08/24 14:08 03/08/24 16:08 03/08/24 14:08 03/08/24 14:08 Oxygen Delivery Method Room Air Weight: 44.1 kg Body Mass Index (BMI) 21.8 Intake & Output: Intake and Output for Last 24 Hours 03/06/24 03/07/24 03/08/24 23:59 23:59 23:59 Intake Total 50 / 200 300 / 300 Output Total 250 / 250 Balance -200 / -50 300 / 300 Lab / Micro Data 03/08/24 06:57 03/08/24 06:57 Labs: Laboratory Results - last 24 hr 03/08/24 06:57: WBC 13.6 H, RBC 4.06 L, Hgb 11.9 L, Hct 37.5, MCV 92.4, MCH 29.3, MCHC 31.7 L D, RDW Std Deviation 62.3 H, RDW Coeff of Rohit 18.6 H, Plt Count 283, MPV 8.7, Immature Gran % (Auto) 0.400, Neut % (Auto) 90.1 H, Lymph % (Auto) 5.4 L, [place] % (Auto) 4.0, Eos % (Auto) 0.0, Baso % (Auto) 0.1, Absolute Neuts (auto) 12.3 H, Absolute Lymphs (auto) 0.74 L, Nucleated RBC % 0, Sodium 139, Potassium 4.1, Chloride 108 H, Carbon Dioxide 19.0 L, Anion Gap 12, BUN 28 H, Creatinine 1.23 H, Estim Creat Clear Calc 22.86, Est GFR (MDRD) Af Amer 53 L, Est GFR (MDRD) Non-Af 44 L, BUN/Creatinine Ratio 22.8 H, Glucose 130 H, Calcium 9.1, Phosphorus 4.6, Magnesium 1.9, Total Bilirubin 0.70, AST 16, ALT 30, Alkaline Phosphatase 71, Total Protein 6.5, Albumin 2.9 L, Globulin 3.6, Albumin/Globulin Ratio 0.8 L Radiography Diagnostic Testing: Radiology Impression Endo Retro Cholangiopancreatogram 03/07/24 13:30 IMPRESSION: Fluoroscopic guided ERCP Electronically Signed: Cj Rodney MD at 16:54 EST Reading Location ID and State: [facility] / [place] Tel , Service support , Physical Exam Const alert, oriented x3, no apparent distress and average body habitus Constitutional Narrative: Frail-appearing, elderly, white female, sitting up in bed, appears comfortable currently, nontoxic General Appearance: cooperative HEENT normocephalic, head/scalp atraumatic and moist oral mucous membranes Resp normal respiratory effort, normal air movement, no retractions, no use of accessory muscles and clear to auscultation bilaterally Auscultation: Negative for rales, rhonchi or wheezes Cardio regular rate, regular rhythm, S1 normal heart sound, S2 normal heart sound, no murmurs, no rub, no gallops and no clicks Rate: bradycardia Heart Sounds: Negative for murmur GI normal to inspection, nondistended, normoactive bowel sounds and soft to palpation GI Narrative: Minimal tenderness in the epigastrium Palpation: tender other (Generalized) Extremity no clubbing, cyanosis or edema Extremity Narrative: Pedal pulses are 2+, radial pulses are 2+ Neuro moves all extremities and no focal motor deficits Neuro Narrative: Patient with resting tremor noted that does not dissipate with movement Speech: speech normal Psych thought process normal, cooperative and affect normal Psych Narrative: Very pleasant, interacts appropriately Mood & Affect: Negative for depressed or anxious Assessment & Plan Assessment/Plan (1) Abdominal pain: (2) Ischemic colitis: (3) Iron deficiency anemia: (4) Choledocholithiasis: PLAN: Plan Lower GI bleed secondary to ischemic colitis -Hemoglobin is now clinically stable -EGD was overtly unremarkable -Ischemic colitis noted on colonoscopy -Colonoscopy-03/04/2024 which showed patchy, moderate inflammation in the rectosigmoid colon, sigmoid colon and in the descending colon secondary to ischemic colitis as well as diverticulosis in the rectosigmoid colon, sigmoid colon, descending colon and splenic flexure and in the transverse colon, rectal prolapse and nonbleeding external hemorrhoids -Continue to maintain adequate hydration and blood pressure slightly high to help with ischemic colitis -Clinically much improved Choledocholithiasis -ERCP yesterday showed choledocholithiasis with benign stricture -Stent placed in the biliary duct and pancreatic duct -Will need outpatient follow-up within 4 weeks for stent removal Acute on chronic anemia -Baseline hemoglobin appears to run between 8 and 10 -Cheko during hospitalization was 6.5 for which she received 2 units packed red blood cells -Hemoglobin is now 11.9 and stable -Clinically no signs of bleeding and ongoing Dilated biliary ducts -LFTs and bilirubin normal -ERCP done today and showed a single localized biliary stricture in the lower third of the main bile duct with the entire biliary tree dilated, irregularity and pancreatic duct, choledocholithiasis with complete removal of the stone via biliary sphincterotomy and balloon extraction as well as a pancreatic sphincterotomy and 1 temporary stent and common bile duct -Will need outpatient follow-up Recent left posterior circulation strokes -MRI from 02/20/2024 showed 2 small acute infarcts in the central and posterior aspect of the left cerebellar lobe and 1 in the left occipital lobe -The patient has had previous echocardiogram with negative bubble study so will not repeat at this time -CTA of the head and neck shows atherosclerotic disease without evidence of hemodynamically significant stenosis or major vessel occlusion and plaque is minimal to moderate in the carotid arteries -DOAC on hold due to GI bleeding -aspirin on hold due to GI bleeding -Will need ongoing rehab at transitional care unit and plan is for transfer back there once pre-CERT is obtained -Hopeful for discharge in the next 24 to 48 hours Left shoulder pain -X-rays confirmed posterior glenoid fracture neck-patient is able to move her left arm -Management is nonoperative -Continue left upper extremity sling and outpatient follow-up with orthopedic surgery -Continue as needed oral pain medication for pain management -Avoid NSAIDs CKD stage IIIb -Outpatient lisinopril on hold per nephrology recommendations -Creatinine is currently stable -Continue home Lasix Tremor -Doubt the tremor is related to acute strokes -Recommend outpatient follow-up with neurology Paroxysmal atrial fibrillation -In sinus rhythm on presentation -Restart Eliquis per discussion with gastroenterology -Beta-alex and amiodarone were discontinued due to bradycardia -Cardiology is monitoring for need of pacemaker Diabetic neuropathy -Continue home gabapentin Chronic HFpEF/pulmonary hypertension -Echocardiogram from 12/20/2023 shows an EF of 55% with a negative bubble study, mild to moderate eccentric mitral valve insufficiency and pulmonary systolic pressure of 60 mmHg read with diffuse aortic valve thickening -Diuretics on hold due to JOANNA by nephrology Essential hypertension/hyperlipidemia -lisinopril on hold due to JOANNA at her last admission per nephrology -Plan outpatient follow-up -Continue home Lasix -Blood pressure still markedly elevated so we will go ahead and add amlodipine 5 mg daily -Continue to monitor and uptitrate as needed -Continue as needed hydralazine -Continue statin RA/Sjogren's syndrome -Continue home Plaquenil EL DVT prophylaxis -Restart home Eliquis CODE STATUS -DNR CCA with no intubation Disposition: -Patient is medically ready for discharge as of 03/07/2024. Awaiting approval from insurance company Charges/Coding Visit Charges Inpatient E&M: 12967 Subs Hosp L2
[2024-03-08] MEDS: APIXABAN 2.5 MG TABLET (WCH) PO (20:18)
[2024-03-09 02:29] VITALS: BP 130/57; PULSE 74; RESP 17; TEMP 37.3; O2SAT 94
[2024-03-09 07:25] LABS: Absolute Lymphocyte Count 0.97 X10^3/uL (0.83-4.51); Absolute Neutrophil Count 10.3 X10^3/uL (2.0-7.7); Basophil# 0.03 X10^3/uL; Basophil% 0.2 % (0-1); Eosinophil# 0.14 X10^3/uL; Eosinophils% 1.1 % (0-5); Hematocrit 32.6 % (37-47); Hemoglobin 10.8 g/dL (12.0-15.0); Lymphocyte # 0.97 X10^3/ul (0.83-4.51); Lymphocyte % 7.9 % (19-41); Mean Corp Hgb Conc 33.1 g/dL (32-36); Mean Corpuscular Hgb 29.7 pg (27.0-32.0); Mean Corpuscular Volume 89.6 fL (81-99); Mean Platelet Vol. 8.3 fl (6.2-12.0); Monocyte# 0.79 X10^3/uL; Monocyte% 6.4 % (0-10); NRBC Flagged by Analyzer 0 % (0-5); Neutrophil # 10.32 X10^3/uL (2.7-7.7); Neutrophil % 83.8 % (47-70); Platelet Count 253 K/mm3 (150-450); RBC Distribution Width CV 18.7 % (11.6-14.6); RBC Distribution Width SD 60.7 fl (35.1-43.9); Red Blood Count 3.64 M/mm3 (4.2-5.4); White Blood Count 12.3 K/mm3 (4.4-11.0)
[2024-03-09 08:01] LABS: ALB/GLOB Ratio 0.9 RATIO (0.9-2.4); AST(SGOT) 13 U/L (15-37); Alanine Aminotransfer ALT/SGPT 23 U/L (13-56); Albumin, Serum 2.6 g/dL (3.2-5.0); Alkaline Phosphatase 67 U/L (45-117); Anion Gap 7 (5-15); BUN 24 mg/dL (7-18); BUN/Creat Ratio 22.6 RATIO (10-20); Calcium,Total 8.8 mg/dL (8.5-10.1); Chloride 106 mmol/L (98-107); Creatinine, Serum 1.06 mg/dL (0.55-1.02); EST Glomerular Filtration Rate 52 mL/min (>60); Est Glom Filt Rate - Afr Amer 63 mL/min (>60); Estimated Creatinine Clearance 26.52 ml/min; Glucose 83 mg/dL (74-106); Potassium 3.5 mmol/L (3.5-5.1); Protein, Total 5.6 g/dL (6.4-8.2); Sodium Level 140 mmol/L (136-145)
--- NOTE | 2024-03-09 08:07 | ANES.CONFIRM ---
Anesthesia: Confirm Documents Multiple Procedures on Account (2) Confirmed Documents: Yes
[2024-03-09 08:08] VITALS: BP 145/59; PULSE 74; RESP 18; TEMP 36.8; O2SAT 96
[2024-03-09] MEDS: Ferrous Sulfate 325 MG Tablet PO (08:09)
[2024-03-09] MEDS: Cyanocobalamin 500 MCG Tablet 1000 MCG PO (10:01)
[2024-03-09] MEDS: Atorvastatin Calcium 40 MG Tablet PO (10:01)
[2024-03-09] MEDS: amLODIPine 5 MG Tablet PO (10:01)
[2024-03-09] MEDS: Hydroxychloroquine 200 MG Tablet PO (10:01)
[2024-03-09] MEDS: Gabapentin 300 MG Capsule PO (10:01)
[2024-03-09] MEDS: APIXABAN 2.5 MG TABLET (WCH) PO (10:01)
[2024-03-09] MEDS: Cholecalciferol (Vit D3) 125 MCG CAPSULE (5,000 UNITS) PO (10:01)
[2024-03-09] MEDS: Furosemide 40 MG Tablet PO (10:01)
[2024-03-09] MEDS: Menthol/Lanolin/Calamine/Znox 113 GM Tube 1 APPLIC TOPICAL (11:16)
--- NOTE | 2024-03-09 13:15 | TREXTCAR_ITS ---
Diet Diet Order/Speech Therapy: 03/08/24 09:33 Diet: Cardiac - Heart Healthy Routine Orders/Code Status Routine Lab Work: CBC (3-5 days) and BMP (3-5 days) Code Status: DNRCC-A (No intubation) DC O2, CPAP, BIPAP needs Home O2 Discharge instructions: No Wound(s) right and left buttock: Wound Type: Pressure Injury Therapies Weight Bearing: Full weight bearing Extremity Affected:: Bilateral Lower Physical Therapy: Eval and Treat Occupational Therapy: Eval and Treat Problem/Diagnosis (1) Abdominal pain: Status: Acute Code(s): R10.9 - Unspecified abdominal pain (2) Ischemic colitis: Status: Acute Code(s): K55.9 - Vascular disorder of intestine, unspecified (3) Iron deficiency anemia: Status: Acute Code(s): D50.9 - Iron deficiency anemia, unspecified (4) Choledocholithiasis: Status: Acute Code(s): K80.50 - Calculus of bile duct without cholangitis or cholecystitis without obstruction Allergies/Procedures Done in Hospital Allergies ciprofloxacin (From Cipro) Allergy (Intermediate, Verified 02/22/24 20:23) NEEDS FOLLOW-UP duloxetine Allergy (Intermediate, Verified 02/22/24 20:23) NEEDS FOLLOW-UP ibuprofen Allergy (Intermediate, Verified 02/22/24 20:23) NEEDS FOLLOW-UP meloxicam Allergy (Intermediate, Verified 02/22/24 20:23) NEEDS FOLLOW-UP Penicillins Allergy (Intermediate, Verified 02/22/24 20:23) NEEDS FOLLOW-UP sulfamethoxazole (From Septra) Allergy (Intermediate, Verified 02/22/24 20:23) NEEDS FOLLOW-UP trimethoprim (From Septra) Allergy (Intermediate, Verified 02/22/24 20:23) NEEDS FOLLOW-UP Procedures: Colonoscopy, EGD, EKG and - (ERCP/shoulder x-ray/MRCP/CT brain/CT abdomen pelvis/chest x-ray) Type of Care/Length of Stay Estimated LOS: Convalescent Care Less Than 30 days Type of Care Needed: Skilled Rehab Potential: Good Prognosis: Good Additional Orders/Day of Discharge Day of Discharge: 03/09/24 Dietary and Speech Recommendations Dietitian Recommendations/Changes: Advance diet as tolerated to transitional as indicated. Resume 120mL ensure plus high protein 4x with medpass. Follow Up Care Please follow up with your Primary Care Physician in: 1 week after d/c Please Follow Up With: Friend,JoeDO When: 2-4 weeks Discharge Plan Admission Admit Date/Time: 02/29/24 21:27 Attending Provider: Elsy Zafar Primary Care Provider: Keke Suarez Consulting Providers: Saleem Child; Clotilde Tamayo Discharge Orders/Prescriptions Prescriptions: No Action atorvastatin 40 mg tablet 40 mg PO DAILY gabapentin 300 mg capsule 300 mg PO BID lisinopril 40 mg tablet 40 mg PO DAILY Patient Comments: hold for JOANNA. ferrous sulfate 325 mg (65 mg iron) tablet 325 mg PO DAILY mecobalamin (vitamin B12) 1,000 mcg tablet,chewable 1,000 mcg PO QMWF cholecalciferol (vitamin D3) 125 mcg (5,000 unit) capsule 125 mcg PO QODAY hydroxychloroquine 200 mg tablet 200 mg PO DAILY furosemide 40 mg tablet 40 mg PO DAILY Qty: 30 2RF Patient Comments: Hold for 1 week. JOANNA. Follow-up with nephrology acetaminophen 325 mg Tablet 650 mg PO Q4H PRN PRN (Reason: Pain 1-10 Or Fever>99.6) Qty: 0 0RF sennosides-docusate sodium [Stimulant Laxative Plus] 8.6-50 mg Tablet 2 tab PO BID PRN (Reason: Constipation) Qty: 0 0RF aspirin 81 mg Tablet,Chewable 81 mg PO BREAKFAST 30 Days Qty: 0 3RF Eliquis 5 mg Tablet 2.5 mg PO BID Qty: 0 0RF ondansetron 4 mg tablet,disintegrating 4 mg PO Q6H PRN (Reason: nausea and vomiting) Qty: 30 0RF Referrals / Follow Up: Keke Suarez, JUNIOR MECHANICAL ENGINEER-C [Primary Care Provider] -
--- NOTE | 2024-03-09 13:18 | DS.PCM_ITS ---
Providers Date of Admission: 02/29/24 Date of Discharge: 03/09/24 Primary Care Physician: MARLEE Bolivar Consultations 02/29/24 22:28 Consult: Gastroenterology Routine Consulting Provider: [facility] Reason for Consult: Abdominal pain, GI bleed, MRCP recommended by radiology EMERGENT Consult: Yes MD Notified: Yes Date Notified: 02/29/24 Time Notified: 21:32 Method of Notification: ED Physician Initiated Reason For Visit: ABDOMINAL PAIN Diagnosis Discharge Diagnosis (1) Abdominal pain: Status: Acute Code(s): R10.9 - Unspecified abdominal pain (2) Ischemic colitis: Status: Acute Code(s): K55.9 - Vascular disorder of intestine, unspecified (3) Iron deficiency anemia: Status: Acute Code(s): D50.9 - Iron deficiency anemia, unspecified (4) Choledocholithiasis: Status: Acute Code(s): K80.50 - Calculus of bile duct without cholangitis or cholecystitis without obstruction Medications at Discharge Home Medications atorvastatin 40 mg tablet 40 mg PO DAILY cholesterol 09/07/23 cholecalciferol (vitamin D3) 125 mcg (5,000 unit) capsule 125 mcg PO QODAY supplement 09/07/23 ferrous sulfate 325 mg (65 mg iron) tablet 325 mg PO DAILY supplement 09/07/23 gabapentin 300 mg capsule 300 mg PO BID Nerve pain 09/07/23 lisinopril 40 mg tablet 40 mg PO DAILY BP 09/07/23 mecobalamin (vitamin B12) 1,000 mcg chewable tablet 1,000 mcg PO QMWF supplement 09/07/23 hydroxychloroquine 200 mg tablet 200 mg PO DAILY Immunosupressive 01/27/24 furosemide 40 mg tablet 40 mg PO DAILY fluid pill #30 tabs 01/30/24 acetaminophen 325 mg tablet 650 mg (2 x 325 mg) PO Q4H PRN PRN Pain 1-10 Or Fever>99.6 #0 tabs 02/25/24 apixaban 5 mg tablet (Eliquis) 2.5 mg (1/2 x 5 mg) PO BID afib/prevent clots #0 tabs 02/25/24 ondansetron 4 mg disintegrating tablet 4 mg PO Q6H PRN nausea and vomiting #30 tabs 02/25/24 sennosides 8.6 mg-docusate sodium 50 mg tablet (Stimulant Laxative Plus) 2 tab PO BID PRN Constipation #0 tabs 02/25/24 amlodipine 5 mg tablet 5 mg PO DAILY #0 tabs 03/09/24 food supplemt, lactose-reduced 0.08 gram-1.5 kcal/mL oral liquid (Ensure Plus High Protein) 120 ml PO 4X/DAY #0 mL 03/09/24 pantoprazole 40 mg tablet,delayed release (Protonix) 40 mg PO DAILY #1 TAB 03/09/24 Hospital Course Operations ERCP Procedures Colonoscopy, EGD, EKG and - (Chest x-ray/CT abdomen pelvis/CT brain/MRCP/shoulder x-ray) Summary of Care Provided Minutes Spent on Discharge: 45 Hospital Course: Mrs. Evans is an 88-year-old white female who was admitted initially on 02/22/2024 and discharged to the transitional care unit on 02/25/2024 at which time she was found to have new stroke. She also had JOANNA at that time. She was discharged to transitional care unit for ongoing rehab on Eliquis. On 02/29/2024 she was noted to be positive for blood in her stool and her Eliquis was held. She then complained of abdominal pain and some right-sided weakness so she was transferred to the emergency department for evaluation. CT of her head was unremarkable and CT of the abdomen pelvis showed ileitis with fecal retention. MRCP was also recommended in the CT report as there were apparent dilated ducts. The patient denied any fevers, chills, nausea, or vomiting. Hemoglobin at that time was 9.6. Vital signs were overtly unremarkable and stable when compared to previous. She was admitted to the medical floor and GI was consulted and recommended proceeding with an EGD which was performed on 03/01/2024 and demonstrated normal esophagus, erythematous mucosa in the gastric body and antrum, no gross lesions to the second portion of the duodenum with no biopsies taken. Given and overtly unremarkable EGD and colonoscopy was recommended and patient did have a couple episodes of bleeding with the prep. On colonoscopy she was found to have patchy moderate inflammation in the rectosigmoid, sigmoid, and descending colon secondary to ischemic colitis which was biopsied. She was also found to have diverticulosis in the rectosigmoid, sigmoid, descending, splenic flexure and transverse colon. Rectal prolapse was also noted. She had nonbleeding internal hemorrhoids. It was felt that her GI bleeding was related to ischemic colitis. MRCP was performed and showed dilated ducts and the patient was taken for an ERCP on 03/07/2024 at which time she was found to have a single localized biliary stricture in the lower third of the main bile duct, the entire biliary tree was dilated and irregularity was found in the pancreatic duct in the body of the pancreas and the pancreatic tail duct, choledocholithiasis was found and complete removal of the stone was achieved by biliary sphincterotomy and balloon extraction, pancreatic sphincterotomy was also performed and a temporary stent was placed both in the common bile duct and the pancreatic duct. These will need removed in the future and the patient has been advised to follow-up with Dr. Patterson within the next month. She was started on Protonix as there was some irritation on her EGD but signs of bleeding. With her severe ischemic colitis we do recommend she maintain good hydration and a little bit higher blood pressure. She was able to reinitiated on her diuretic however we continue to hold her lisinopril due to her previous renal dysfunction and started amlodipine 5 mg daily as her blood pressures were in the 170s on a fairly consistent basis and she was receiving as needed hydralazine regularly. The patient does not have a history of coronary artery disease but did have recent stroke. She does have a history of A-fib so at this point given her bleeding issues we went ahead and held her aspirin but will continue her Eliquis. Per GI it was okay to restart her Eliquis at the time of discharge. Hemoglobin was stable at discharge at 10.5. I do recommend she have a repeat CBC and BMP within the next 3 to 5 days after discharge to document ongoing stability. The patient's abdominal pain was resolved and she had no further nausea vomiting. She also complained of shoulder pain at the time of admission for which a shoulder x-rays performed. She was found to have of fracture of the posterior glenoid fossa. She was placed in a sling and will need follow-up with orthopedic surgery in the next 1 to 2 weeks. The plan was returned to the transitional care unit the time of discharge and we received pre-CERT for her to use on 03/09/2024. She was discharged there in stable condition at that time. 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 Left shoulder inferior posterior glenoid fossa fracture CKD stage IIIb Tremor-chronic PAF Diabetic neuropathy Chronic HFpEF Pulmonary hypertension Essential hypertension Hyperlipidemia RA Sjogren syndrome Severe malnutrition Physical Exam Const alert, oriented x3, no apparent distress, average body habitus and no limitations; Negative for well nourished Constitutional Narrative: Frail-appearing, elderly, white female, sitting up in a chair at the bedside, appears comfortable currently, nontoxic General Appearance: cooperative, comfortable, well kempt and well developed Exam Limitations: no limitations Nutritional Appearance: thin HEENT normocephalic, head/scalp atraumatic, moist oral mucous membranes and oropharynx normal HEENT Narrative: Mild hearing loss, Mallampati 2 Eyes EOMs intact bilaterally and conjunctivae normal Eyes Narrative: No scleral icterus Neck supple Neck Narrative: Trachea midline Resp normal respiratory effort, normal air movement, no retractions, no use of accessory muscles and clear to auscultation bilaterally Auscultation: Negative for rales, rhonchi or wheezes Cardio regular rate, regular rhythm, S1 normal heart sound, S2 normal heart sound, no murmurs, no rub, no gallops and no clicks Rate: bradycardia Heart Sounds: Negative for murmur GI normal to inspection, nondistended, normoactive bowel sounds, soft to palpation and non-tender GI Narrative: Tenderness has resolved Extremity no clubbing, cyanosis or edema Extremity Narrative: Pedal pulses are 2+, radial pulses are 2+ Skin skin turgor normal and no jaundice Neuro oriented x3, moves all extremities and no focal motor deficits Neuro Narrative: Patient with resting tremor noted that does not dissipate with movement Speech: speech normal Psych thought process normal, cooperative and affect normal Psych Narrative: Very pleasant, interacts appropriately Appearance: appropriate Mood & Affect: Negative for depressed or anxious Weight / BMI Weight Weight: 44.1 kg Body Mass Index (BMI) 21.8 ABG / Lab / Microbiology Data 03/09/24 07:07 03/09/24 07:07 Laboratory: Laboratory Results - last 24 hr 03/09/24 07:07: WBC 12.3 H, RBC 3.64 L, Hgb 10.8 L, Hct 32.6 L, MCV 89.6, MCH 29.7, MCHC 33.1, RDW Std Deviation 60.7 H, RDW Coeff of Rohit 18.7 H, Plt Count 253, MPV 8.3, Immature Gran % (Auto) 0.600, Neut % (Auto) 83.8 H, Lymph % (Auto) 7.9 L, [place] % (Auto) 6.4, Eos % (Auto) 1.1, Baso % (Auto) 0.2, Absolute Neuts (auto) 10.3 H, Absolute Lymphs (auto) 0.97, Nucleated RBC % 0, Sodium 140, Potassium 3.5, Chloride 106, Carbon Dioxide 27.0, Anion Gap 7, BUN 24 H, C reatinine 1.06 H, Estim Creat Clear Calc 26.52, Est GFR (MDRD) Af Amer 63, Est GFR (MDRD) Non-Af 52 L, BUN/Creatinine Ratio 22.6 H, Glucose 83, Calcium 8.8, Total Bilirubin 1.00, AST 13 L, ALT 23, Alkaline Phosphatase 67, Total Protein 5.6 L, Albumin 2.6 L, Globulin 3.0, Albumin/Globulin Ratio 0.9 Radiography Diagnostic Testing: Radiology Impression Endo Retro Cholangiopancreatogram 03/07/24 13:30 IMPRESSION: Fluoroscopic guided ERCP Electronically Signed: Cj Rodney MD at 16:54 EST Reading Location ID and State: [facility] / [place] Tel , Service support , D/C Instructions Discharge Diet: Low fat / Low cholesterol DC O2, CPAP, BIPAP Needs Home O2 Discharge instructions: No Please Follow Up With: Joe Patterson, DO Meaningful Use Info Meaningful Use Meaningful Use Diagnoses (Choose all that apply): None applicable Ischemic Stroke Statin Dosing Therapy Reference: STATIN DOSE THERAPY REFERENCE: * Patients > 75 years receive moderate or high dose statin therapy. * Patients 75 years or YOUNGER should receive HIGH intensity statin dose unless contraindicated. You will be required to document reason for non-treatment if statin daily dose does not meet guidelines. HIGH DOSE STATIN THERAPY DAILY Atorvastatin > than or = to 40 mg Rosuvastatin > than or = to 20 mg Amlodipine + Atorvastatin > than or = to 2.5/40 mg Ezetimibe + Simvastatin 10/80 mg Simvastatin 80mg Discharge Plan Admission Admit Date/Time: 02/29/24 21:27 Primary Reason for Your Visit: Abdominal pain Attending Provider: Elsy Zafar Primary Care Provider: Keke Suarez Consulting Providers: Saleem Child; Clotilde Tamayo Discharge Orders/Prescriptions Prescriptions: New amlodipine 5 mg Tablet 5 mg PO DAILY Qty: 0 0RF Ensure Plus High Protein 0.08 gram-1.5 kcal/mL Liquid 120 ml PO 4X/DAY Qty: 0 0RF pantoprazole [Protonix] 40 mg tablet,delayed release (DR/EC) 40 mg PO DAILY Qty: 1 0RF Continued atorvastatin 40 mg tablet 40 mg PO DAILY gabapentin 300 mg capsule 300 mg PO BID ferrous sulfate 325 mg (65 mg iron) tablet 325 mg PO DAILY mecobalamin (vitamin B12) 1,000 mcg tablet,chewable 1,000 mcg PO QMWF cholecalciferol (vitamin D3) 125 mcg (5,000 unit) capsule 125 mcg PO QODAY hydroxychloroquine 200 mg tablet 200 mg PO DAILY furosemide 40 mg tablet 40 mg PO DAILY Qty: 30 2RF Patient Comments: Hold for 1 week. JOANNA. Follow-up with nephrology acetaminophen 325 mg Tablet 650 mg PO Q4H PRN PRN (Reason: Pain 1-10 Or Fever>99.6) Qty: 0 0RF sennosides-docusate sodium [Stimulant Laxative Plus] 8.6-50 mg Tablet 2 tab PO BID PRN (Reason: Constipation) Qty: 0 0RF Eliquis 5 mg Tablet 2.5 mg PO BID Qty: 0 0RF ondansetron 4 mg tablet,disintegrating 4 mg PO Q6H PRN (Reason: nausea and vomiting) Qty: 30 0RF Held lisinopril 40 mg tablet 40 mg PO DAILY Hold Instructions: until restarted by nephro Patient Comments: hold for JOANNA. Discontinued aspirin 81 mg Tablet,Chewable 81 mg PO BREAKFAST 30 Days Qty: 0 3RF Referrals / Follow Up: Joe Patterson DO [Med Staff - Active Staff] - Within 1 Month (needs appt for stent removal) Keke Suarez, [employer]-C [Primary Care Provider] - Within 1 Week (After discharge from senior care facility) Ramirez Abdul DO [Med Staff - Active Staff] - Within 1 Week (L shoulder glenoid fracture) Disposition Disposition (needs filled in before D/C Order can be placed): Detention Facility Charges/Coding Visit Charges Inpatient E&M: 07968 SNF Disch >30 Min
[2024-03-09 14:08] VITALS: BP 140/66; PULSE 77; RESP 18; TEMP 37; O2SAT 98
--- NOTE | 2024-03-09 14:20 | CASEMGMT ---
Social Work- SW received notice that physician feels pt is medically ready for discharge. Bedside nurse notified. Pt notified of discharge. Pt requested SW called pt dtr and grand daughter to update on pt discharge. SW faxed discharge to TCU. Plan: TCU; skilled level of care ANSELMO Carter
--- NOTE | 2024-03-09 14:41 | NURSING ---
report called to Juani WOO on TCU
== END 2024-03-09 15:30 | disposition skilled nursing facility (03) | DRG 394 ==
LOC: ED 16:52 → MS3 03-01 03:28
PROVIDERS: Internal Medicine Gastroenterology; Student in an Organized Health Care Education/Training Program; Admitting Provider Family Medicine; Emergency Provider Emergency Medicine; PCP Nurse Practitioner Family; Referring Provider Family Medicine; Visit Provider Internal Medicine
PROC: 0DJ08ZZ Inspection of Upper Intestinal Tract, Via Natural or Artificial Opening Endoscopic (ICD-10-PCS; CPT 43235; principal; 2024-03-01 17:35)
PROC: 0DJD8ZZ Inspection of Lower Intestinal Tract, Via Natural or Artificial Opening Endoscopic (ICD-10-PCS; CPT 45378; principal; 2024-03-04 15:55)
PROC: 0FC98ZZ Extirpation of Matter from Common Bile Duct, Via Natural or Artificial Opening Endoscopic (ICD-10-PCS; CPT 43260; principal; 2024-03-07 12:40)
DX: K55.039 Acute (reversible) ischemia of large intestine, extent unspecified (principal); I69.351 Hemiplegia and hemiparesis following cerebral infarction affecting right dominant side; D62 Acute posthemorrhagic anemia; I13.0 Hypertensive heart and chronic kidney disease with heart failure and stage 1 through stage 4 chronic kidney disease, or unspecified chronic kidney disease; K80.71 Calculus of gallbladder and bile duct without cholecystitis with obstruction; I50.32 Chronic diastolic (congestive) heart failure; I27.29 Other secondary pulmonary hypertension; K62.3 Rectal prolapse; E11.40 Type 2 diabetes mellitus with diabetic neuropathy, unspecified; N18.30 Chronic kidney disease, stage 3 unspecified; D50.9 Iron deficiency anemia, unspecified; M35.00 Sjogren syndrome, unspecified; I48.0 Paroxysmal atrial fibrillation; N18.32 Chronic kidney disease, stage 3b; K80.50 Calculus of bile duct without cholangitis or cholecystitis without obstruction; K83.8 Other specified diseases of biliary tract; E78.5 Hyperlipidemia, unspecified; S42.145A Nondisplaced fracture of glenoid cavity of scapula, left shoulder, initial encounter for closed fracture; K64.2 Third degree hemorrhoids; K57.30 Diverticulosis of large intestine without perforation or abscess without bleeding; I95.9 Hypotension, unspecified; K31.89 Other diseases of stomach and duodenum; R11.0 Nausea; E11.22 Type 2 diabetes mellitus with diabetic chronic kidney disease; R29.898 Other symptoms and signs involving the musculoskeletal system; Z79.82 Long term (current) use of aspirin; Z79.01 Long term (current) use of anticoagulants; K86.89 Other specified diseases of pancreas; Z79.899 Other long term (current) drug therapy; Z90.49 Acquired absence of other specified parts of digestive tract; Z86.79 Personal history of other diseases of the circulatory system; K63.89 Other specified diseases of intestine
CPT/HCPCS: 36415; 70450; 71045; 73030; 74177; 74181; 74330; 76000; 80048; 80053; 81001; 83690; 83735; 84100; 84484; 85025; 86850; 86900; 86901; 88305; 93005; 97116; 97162; 97166; 97530; 97535; 97802; 99285; P9016; Q9967; A4216; J1940; J2405

== ENCOUNTER 2024-03-09 15:40 | Inpatient (IN) | payer MEDICARE, SELFPAY ==
[2024-03-09 15:49] VITALS: BP 164/70; PULSE 75; RESP 14; TEMP 36.8; O2SAT 95; BMI 21.3; BMI 21.4
--- NOTE | 2024-03-09 16:26 | NURSING ---
Pt came with order for 40mg of Lasix Daily Per Dr. Rd medrano and monitor for edema.
--- NOTE | 2024-03-09 16:28 | HP.PCM_ITS ---
HPI - General General Date of Admission: 03/09/24 Date of Service: 03/09/24 Chief Complaint: Here for rehabilitation. HPI Narrative JONNA GIRON, is a 88 Female who presents with followin02/29/24 [facility] ED TCU resident rehabbing for stroke. Right leg weakness, right leg heaviness, abdominal pain, nausea, vomiting, hemoccult +. Out of window for TNK. Chest X-ray negative. CT abdomen/pelvis showed terminal ileitis, dilated biliary duct. CT head negative. 02/29/2024 Admit [facility]. Pantoprazole IV, Hold Eliquis, IV fluids, MRCP, Dr. Patterson for abdominal pain. Hold oral medications. 03/01/[address] abdomen/pelvis dilated extrahepatic bile ducts. MRCP ordered. Pantoprazole 40mg iv bid, Hemoccult +. 03/01/2024 Dr. Patterson EGD normal esophagus, erythematous mucosa in the gastric body and antrum. 03/02/2024 No acute events overnight, blood pressure low 90's systolic. MRCP: IMPRESSION: Cholelithiasis with mild extrahepatic biliary ductal dilatation and no obvious stones, mass or stricture. This could be secondary to a recently passed or occult stone. Consider ERCP. Two T2 hyperintense cystic lesions in the pancreas, one in the body measuring 5 mm while the other in the tail measuring 1.2 cm. No main pancreatic duct dilatation. 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 Per ACR white paper criteria, no follow-up recommended to patient''s advanced age. 2.3 cm cyst in the left mid renal pole is indeterminate without IV contrast. As was suggested in the CT report, postcontrast images are recommended. 03/03/2024 Hemoglobin 6.5, Eliquis held. Transfuse 2 units PRBC, Lasix 20mg iv between units. GI recommends colonoscopy. 03/04/2024 Dr. Patterson colonoscopy showed ischemic colitis, diverticulosis. 03/05/2024 Left shoulder pain, some abdominal pain. Keep blood pressure up and maintain hydration for ischemic colitis. X-ray left shoulder for left shoulder pain. Hold amiodarone, Hold Eliquis. 03/06/2024 Headache, Left shoulder pain, abdominal pain better. Abdominal pain resolved. 03/07/2024 Dr. Patterson ERCP: Impressions : - A single localized biliary stricture was found in the lower third of the main bile duct. The stricture was indeterminate. - The entire biliary tree was dilated, acquired. - An irregularity was found in the pancreatic duct in the body of the pancreas and pancreatic duct in the tail of the pancreas. - Choledocholithiasis was found. Complete removal was accomplished by biliary sphincterotomy and balloon extraction. - A pancreatic sphincterotomy was performed. - The biliary tree was swept and debris was found. - A biliary sphincterotomy was performed. - The biliary tree was swept. - One temporary stent was placed into the common bile duct. 03/07/2024 Pantoprazole stopped. Monitor blood pressure for ischemic colitis. Hemoglobin 11.3, stable. OK to retart Eliailynis. Pre-CERT for TCU. 03/08/2024 Eating breakfast, no abdominal pain. Hemoglobin 11.9. Await Pre-CERT for TCU. 03/09/2024 Admit to TCU with debility, here for rehabilitation, strengthening, prior to discharge home with family. [facility] Medical History (Updated 03/09/24 @ 16:[address] 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, sinus Hyperlipidemia Aortic valve disease Cardiac arrhythmia Fibromyalgia CKD (chronic kidney disease) stage 3, GFR 30-59 ml/min Rheumatoid arthritis Osteoporosis Afib Essential (primary) hypertension Shoulder pain with history of repair of rotator cuff Sjogren syndrome Home Medications ?Medication ?Instructions ?Recorded ?Last Taken ?Type atorvastatin 40 mg tablet 40 mg PO DAILY cholesterol 09/07/23 03/09/24 10:00 History cholecalciferol (vitamin D3) 125 125 mcg PO QODAY supplement 09/07/23 03/09/24 10:00 History mcg (5,000 unit) capsule ferrous sulfate 325 mg (65 mg 325 mg PO DAILY supplement 09/07/23 03/09/24 08:10 History iron) tablet gabapentin 300 mg capsule 300 mg PO BID Nerve pain 09/07/23 03/09/24 10:00 History lisinopril 40 mg tablet 40 mg PO DAILY BP 09/07/23 02/22/24 History mecobalamin (vitamin B12) 1,000 1,000 mcg PO QMWF supplement 09/07/23 03/09/24 10:00 History mcg chewable tablet hydroxychloroquine 200 mg tablet 200 mg PO DAILY Immunosupressive 01/27/24 03/09/24 10:00 History furosemide 40 mg tablet 40 mg PO DAILY fluid pill #30 tabs 01/30/24 02/22/24 Rx acetaminophen 325 mg tablet 650 mg (2 x 325 mg) PO Q4H PRN PRN 02/25/24 03/08/24 02:15 Rx Pain 1-10 Or Fever>99.6 #0 tabs apixaban 5 mg tablet (Eliquis) 2.5 mg (1/2 x 5 mg) PO BID 02/25/24 03/09/24 10:00 Rx afib/prevent clots #0 tabs ondansetron 4 mg disintegrating 4 mg PO Q6H PRN nausea and 02/25/24 Unknown Rx tablet vomiting #30 tabs sennosides 8.6 mg-docusate sodium 2 tab PO BID PRN Constipation #0 02/25/24 Unknown Rx 50 mg tablet (Stimulant Laxative tabs Plus) amlodipine 5 mg tablet 5 mg PO DAILY BP #0 tabs 03/09/24 03/09/24 10:00 Rx food supplemt, lactose-reduced 120 ml PO 4X/DAY Supplement #0 mL 03/09/24 03/06/24 Rx 0.08 gram-1.5 kcal/mL oral liquid (Ensure Plus High Protein) pantoprazole 40 mg tablet,delayed 40 mg PO DAILY GERD #1 TAB 03/09/24 Unknown Rx release (Protonix) Allergy/AdvReac Type Severity Reaction Status Date / Time ciprofloxacin (From Cipro) Allergy Intermediate NEEDS Verified 02/22/24 20:23 FOLLOW-UP duloxetine Allergy Intermediate NEEDS Verified 02/22/24 20:23 FOLLOW-UP ibuprofen Allergy Intermediate NEEDS Verified 02/22/24 20:23 FOLLOW-UP meloxicam Allergy Intermediate NEEDS Verified 02/22/24 20:23 FOLLOW-UP Penicillins Allergy Intermediate NEEDS Verified 02/22/24 20:23 FOLLOW-UP sulfamethoxazole (From Allergy Intermediate NEEDS Verified 02/22/24 20:23 Septra) FOLLOW-UP trimethoprim (From Sept) Allergy Intermediate NEEDS Verified 02/22/24 20:23 FOLLOW-UP Surgical History (Updated 03/09/24 @ 16:[address] Segundo Sultana MD) History of ERCP History of appendectomy History of cardiac radiofrequency ablation (RFA) S/P hernia repair Social History household members: family housing: house Smoking Status: Never smoker alcohol intake: never substance use type: does not use ROS Constitutional Constitutional: Reports weakness; Denies chills, fever(s) or weight gain ENT HEENT: Denies headache(s), nasal congestion or nasal discharge Cardiovascular Cardiovascular: Denies chest pain or palpitations Respiratory/Chest Respiratory/Chest: Denies cough, excessive phlegm production or shortness of breath with exertion Gastrointestinal Gastrointestinal: Denies abdominal pain, nausea or vomiting Genitourinary Genitourinary: Denies dysuria Musculoskeletal Musculoskeletal: Denies joint pain or joint swelling Integumentary Integumentary: Denies rash or wounds Neurologic Neurologic: Denies focal weakness, numbness or tingling Psychiatric Psychiatric: Denies anxiety, auditory hallucinations, depression, homicidal ideation or suicidal ideation Vital Signs Vital Signs Vital Signs: 03/09/24 15:49 Temperature 98.2 F Temperature Source Temporal Pulse Rate 75 Respiratory Rate 14 Blood Pressure 164/70 H Blood Pressure Mean 101 Pulse Ox 95 Oxygen Delivery Method Room Air Weight Weight: 43.233 kg Body Mass Index (BMI) 21.3 Physical Exam Const alert General Appearance: cooperative HEENT normocephalic Eyes PERRL and EOMs intact bilaterally Neck supple, no JVD and no carotid bruits Resp normal respiratory effort, normal air movement and clear to auscultation bilaterally Cardio regular rate and regular rhythm GI normal to inspection, nondistended, normoactive bowel sounds, non-tender and non-distended Extremity normal capillary refill Extremity Narrative: Left upper extremity sling. General Extremity: Negative for edema Skin no rashes or lesions noted General Skin Exam: no breakdown Psych affect normal Appearance: appropriate Assessment & Plan Assessment/Plan (1) Debility: (2) Choledocholithiasis: (3) Acute anemia: (4) Ischemic colitis: (5) Left shoulder pain: (6) CVA (cerebral vascular accident): (7) Hyperlipidemia: (8) Vitamin D deficiency: (9) Vitamin B12 deficiency: (10) Iron deficiency anemia: (11) Neuropathic pain: (12) Rheumatoid arthritis: (13) Afib: PLAN: Plan 88 year old female with below past medical history hospitalized for choledocholithiasis, underwent ERCP/sphincterotomy x 2/stent x 2, complicated by acute anemia 2/2 lower GI bleed from ischemic colitis, acute kidney injury, left shoulder pain, admitted to TCU with debility, here for rehabilitation, strengthening, prior to discharge home with family. * Debility - PT/OT. * Pain - Tylenol 1000mg q6 prn pain (1-10). * Bowel senna/colace 2 tablets bid prn. * Adult immunization - Administer pneumonia vaccine, covid vaccine, flu vaccine as appropriate. * DVT prophylaxis - on Eliquis. * Hypertension - Amlodipine 5mg daily. * Atrial Fibrillation - Eliquis 2.5mg bid. * Hyperlipidemia - Atorvastatin 40mg qhs. * Vitamin D deficiency - D3 125mcg every other day. * Vitamin B12 deficiency - B12 1000mcg MoWeFr. * Nutrition - Ensure Plus 120mL po 4x/day. * Iron deficiency anemia - Ferrous sulfate 325mg daily. * Neuropathic pain - Gabapentin 300mg bid. * Rheumatoid arthritis - Plaquenil 200mg daily * Nausea - Zofran odt 4mg q6 prn. * GERD - Pantoprazole 40mg daily. * Left shoulder pain - LUE sling.
[2024-03-09] MEDS: Ensure Plus High Protein 120 ML LIQUID PO (17:44)
[2024-03-09] MEDS: Menthol/Lanolin/Calamine/Znox 113 GM Tube 1 APPLIC TOPICAL (21:42)
[2024-03-09] MEDS: Gabapentin 300 MG Capsule PO (21:45)
[2024-03-09] MEDS: APIXABAN 2.5 MG TABLET (WCH) PO (21:45)
[2024-03-09] MEDS: 0.9% Saline Lock 10 ML Syringe IV (21:46)
[2024-03-09] MEDS: Senna/Docusate Sodium 1 Tablet 2 TABLET PO (21:47)
[2024-03-10] MEDS: Ensure Plus High Protein 120 ML LIQUID PO ×2 (06:26→15:55)
[2024-03-10 07:36] LABS: Absolute Lymphocyte Count 0.78 X10^3/uL (0.83-4.51); Absolute Neutrophil Count 8.8 X10^3/uL (2.0-7.7); Basophil# 0.04 X10^3/uL; Basophil% 0.4 % (0-1); Eosinophil# 0.31 X10^3/uL; Eosinophils% 2.9 % (0-5); Hematocrit 33.6 % (37-47); Hemoglobin 11.1 g/dL (12.0-15.0); Lymphocyte # 0.78 X10^3/ul (0.83-4.51); Lymphocyte % 7.2 % (19-41); Mean Corpuscular Volume 90.8 fL (81-99); Mean Platelet Vol. 8.7 fl (6.2-12.0); Monocyte# 0.85 X10^3/uL; Monocyte% 7.8 % (0-10); NRBC Flagged by Analyzer 0 % (0-5); Neutrophil # 8.77 X10^3/uL (2.7-7.7); Neutrophil % 80.8 % (47-70); Platelet Count 231 K/mm3 (150-450); RBC Distribution Width CV 18.7 % (11.6-14.6); RBC Distribution Width SD 62.1 fl (35.1-43.9); White Blood Count 10.9 K/mm3 (4.4-11.0)
[2024-03-10 07:45] LABS: Anion Gap 6 (5-15); BUN 21 mg/dL (7-18); BUN/Creat Ratio 22.8 RATIO (10-20); Calcium,Total 8.3 mg/dL (8.5-10.1); Chloride 104 mmol/L (98-107); Creatinine, Serum 0.92 mg/dL (0.55-1.02); EST Glomerular Filtration Rate 61 mL/min (>60); Est Glom Filt Rate - Afr Amer 74 mL/min (>60); Estimated Creatinine Clearance 29.96 ml/min; Glucose 99 mg/dL (74-106); Potassium 3.6 mmol/L (3.5-5.1); Sodium Level 139 mmol/L (136-145)
[2024-03-10 09:52] VITALS: BP 123/56; PULSE 64; TEMP 36.8; O2SAT 94
[2024-03-10] MEDS: amLODIPine 5 MG Tablet PO (10:00)
[2024-03-10] MEDS: APIXABAN 2.5 MG TABLET (WCH) PO ×2 (10:00→22:40)
[2024-03-10] MEDS: Pantoprazole Sodium 40 MG Tablet PO (10:00)
[2024-03-10] MEDS: Senna/Docusate Sodium 1 Tablet 2 TABLET PO ×2 (10:00→22:44)
[2024-03-10] MEDS: Hydroxychloroquine 200 MG Tablet PO (10:00)
[2024-03-10] MEDS: 0.9% Saline Lock 10 ML Syringe IV (10:00)
[2024-03-10] MEDS: Atorvastatin Calcium 40 MG Tablet PO (10:00)
[2024-03-10] MEDS: Gabapentin 300 MG Capsule PO ×2 (10:00→22:40)
[2024-03-10] MEDS: Menthol/Lanolin/Calamine/Znox 113 GM Tube 1 APPLIC TOPICAL ×2 (10:01→22:39)
--- NOTE | 2024-03-10 13:39 | PCM.PN.DRR ---
Documented by User: Jose Banks 03/10/24 13:56 TCU RX Drug Regimen Review Subjective/Objective Subjective/Objective Subjective: TCU admission note. 88 year old female with below past medical history hospitalized for choledocholithiasis, underwent ERCP/sphincterotomy x 2/stent x 2, complicated by acute anemia 2/2 lower GI bleed from ischemic colitis, acute kidney injury, left shoulder pain, admitted to TCU with debility, here for rehabilitation, strengthening, prior to discharge home with family. Objective: Allergies ciprofloxacin (From Cipro) Allergy (Intermediate, Verified 02/22/24 20:23) NEEDS FOLLOW-UP duloxetine Allergy (Intermediate, Verified 02/22/24 20:23) NEEDS FOLLOW-UP ibuprofen Allergy (Intermediate, Verified 02/22/24 20:23) NEEDS FOLLOW-UP meloxicam Allergy (Intermediate, Verified 02/22/24 20:23) NEEDS FOLLOW-UP Penicillins Allergy (Intermediate, Verified 02/22/24 20:23) NEEDS FOLLOW-UP sulfamethoxazole (From Septra) Allergy (Intermediate, Verified 02/22/24 20:23) NEEDS FOLLOW-UP trimethoprim (From Septra) Allergy (Intermediate, Verified 02/22/24 20:23) NEEDS FOLLOW-UP Current Medications Generic Name Dose Route Start Last Admin Trade Name Freq PRN Reason Stop Dose Admin Acetaminophen 1,000 mg 03/09/24 16:52 Acetaminophen 500 Mg Tablet PO Q6H PRN PRN Pain Score 1-10 Amlodipine Besylate 5 mg 03/10/24 10:00 03/10/24 10:00 Amlodipine 5 Mg Tablet PO 5 mg DAILY SAY Administration Protocol Apixaban 2.5 mg 03/09/24 22:00 03/10/24 10:00 Apixaban 2.5 Mg Tablet ([facility]) PO 2.5 mg BID SAY Administration Atorvastatin Calcium 40 mg 03/10/24 10:00 03/10/24 10:00 Atorvastatin Calcium 40 Mg Tablet PO 40 mg DAILY SAY Administration Calamine/Phenol 1 applic 03/09/24 22:00 03/10/24 10:01 Menthol/Lanolin/Calamine/Znox 113 Gm Tube TOPICAL 1 applic BID [facility] Administration Protocol Cholecalciferol 125 mcg 03/11/24 10:00 Cholecalciferol (Vit D3) 125 Mcg Capsule (5,000 Units) PO QODAY [facility] Cyanocobalamin 1,000 mcg 03/11/24 10:00 Cyanocobalamin 500 Mcg Tablet PO MoWeFr [facility] Ferrous Sulfate 325 mg 03/10/24 12:00 Ferrous Sulfate 325 Mg Tablet PO DAILY@1200 [facility] Gabapentin 300 mg 03/09/24 22:00 03/10/24 10:00 Gabapentin 300 Mg Capsule PO 300 mg BID SAY Administration Hydroxychloroquine Sulfate 200 mg 03/10/24 10:00 03/10/24 10:00 Hydroxychloroquine 200 Mg Tablet PO 200 mg DAILY SAY Administration Sodium Chloride 100 mls @ 15 mls/hr 03/09/24 16:34 IV .Q6H40M PRN Saline Flush Sodium Chloride 100 mls @ 15 mls/hr 03/09/24 16:34 IV .Q6H40M PRN Additional IVPB Infusion Nutritional Formula (Lactose Free) 120 ml 03/09/24 17:00 03/09/24 21:42 Ensure Plus High Protein 120 Ml Liquid PO Not Given 4X/DAY [facility] Ondansetron HCl 4 mg 03/09/24 16:05 Ondansetron Odt 4 Mg Tablet PO Q6H PRN nausea and vomiting Pantoprazole Sodium 40 mg 03/10/24 10:00 03/10/24 10:00 Pantoprazole Sodium 40 Mg Tablet PO 40 mg DAILY SAY Administration Senna/Docusate Sodium 2 tablet 03/09/24 16:05 03/10/24 10:00 Senna/Docusate Sodium 1 Tablet PO 2 tablet BID PRN Administration Constipation Sodium Chloride 10 - 40 ml 03/09/24 16:34 03/10/24 10:00 0.9% Saline Lock 10 Ml Syringe IV 10 ml UD PRN Administration SALINE FLUSH Tuberculin PPD 0.1 ml 03/17/24 10:00 Tuberculin,Purif.Prot.Deriv. 50 Tu/Ml Vial ID 03/17/24 10:01 X1 ONE Problem List CVA (cerebral vascular accident) (Acute) Left shoulder pain (Acute) Acute anemia (Acute) Debility (Acute) Choledocholithiasis (Acute) Ischemic colitis (Acute) Vitamin B12 deficiency (Acute) Neuropathic pain (Acute) Iron deficiency anemia (Acute) Vitamin D deficiency (Acute) Hyperlipidemia (Acute) Rheumatoid arthritis (Acute) Afib (Acute) Vital Signs Temp Pulse Resp BP Pulse Ox O2 Del Method 98.3 F 64 14 123/56 H 94 Room Air 03/10/24 09:52 03/10/24 09:52 03/09/24 15:49 03/10/24 09:52 03/10/24 09:52 03/10/24 09:52 Oxygen Delivery Method Room Air Weight: 43.233 kg Body Mass Index (BMI) 21.3 Sodium 139 mmol/L (136-145) 03/10/24 05:16 Potassium 3.6 mmol/L (3.5-5.1) 03/10/24 05:16 Chloride 104 mmol/L (98-107) 03/10/24 05:16 Carbon Dioxide 29.0 mmol/L (21.0-32.0) 03/10/24 05:16 Anion Gap 6 (5-15) 03/10/24 05:16 BUN 21 mg/dL (7-18) H 03/10/24 05:16 Creatinine 0.92 mg/dL (0.55-1.02) 03/10/24 05:16 Est GFR (MDRD) Af Amer 74 mL/min (>60) 03/10/24 05:16 Est GFR (MDRD) Non-Af 61 mL/min (>60) 03/10/24 05:16 BUN/Creatinine Ratio 22.8 RATIO (10-20) H 03/10/24 05:16 Glucose 99 mg/dL (74-106) 03/10/24 05:16 Assessment/Plan: 1. Pain: acetaminophen 1000 mg PO Q6H PRN pain. The patient has not required any PRN doses of acetaminophen so far this admission. Please continue to monitor pain levels, PRN medication usage and LFTs (AST/ALT = 13/23 U/L on 03/09/24). 2. Bowel: senna/docusate 2 tablets PO BID PRN constipation. The patient has used 4 doses of senna/docusate so far this admission, and the patient's last bowel movement was on 03/07/24. Please continue to monitor for bowel movements, for PRN medication usage, for constipation and diarrhea. 3. Atrial fibrillation: apixaban 2.5 mg PO BID. Please continue to monitor for s/s of stroke, for symptoms of atrial fibrillation such as palpitations, shortness of breath or dizziness, heart rates (recent range = 50-77 beats/min), for s/s of bleeding, hemoglobin levels (Hgb = 11.1 g/dL on 03/10/24), and platelet count (Plt = 231 K/mm3 on 03/10/24). 4. Hypertension: amlodipine 5 mg PO daily. Please continue to monitor blood pressures (recent range = 120-181/49-88 mmHg), and for lower extremity edema. The patient's blood pressures have mostly been elevated over the last several days with no systolic below 120. Please consider increasing the patient's blood pressure medication to amlodipine 10 mg PO daily. 5. Hyperlipidemia: atorvastatin 40 mg PO QHS. Please continue to monitor lipid levels (cholesterol = 114 mg/dL with LDL = 53 mg/dL on 02/23/24), LFTs (AST/ALT = 13/23 U/L on 03/09/24), and for myalgias. 6. Neuropathic pain: gabapentin 300 mg PO BID. Please continue to monitor pain levels, for drowsiness/dizziness, ataxia, renal function (serum creatinine = 0.92 mg/dL with creatinine clearance ~ 30 mL/min on 03/10/24), and for lower extremity edema. 7. Rheumatoid arthritis: hydroxychloroquine 200 mg PO daily. Please continue to monitor for pain in joints, retinopathy, ataxia and dizziness. 8. GERD: pantoprazole 40 mg PO daily. Please continue to monitor for s/s of GERD, for diarrhea that could indicate clostridium difficile infection, and for s/s of bone resorption such as fractures. 9. Nausea: ondansetron ODT 4 mg PO Q6H PRN nausea. The patient has not required any PRN doses of ondansetron so far this admission. Please continue to monitor for nausea and PRN medication usage. 10. Iron deficiency anemia: ferrous sulfate 325 mg PO daily. Please continue to monitor iron levels (iron = 56 ug/dL on 02/29/24), hemoglobin levels (Hgb = 11.1 g/dL on 03/10/24), and for GI distress with iron administration. 11. Vitamin D/Vitamin B12 deficiency: cholecalciferol 125 mcg every other day, cyanocobalamin 1000 mcg PO on MWF. Please continue to monitor for s/s of vitamin deficiencies, vitamin D levels (vitamin D = 53.4 ng/mL on 02/28/24), and vitamin B12 levels (B12 = 877 pg/mL on 02/28/24). 12. Nutrition: ensure plus high protein 120 mL PO 4x/day. Please continue to monitor overall nutritional status. 13. Skin irritation: calmoseptine 1 application topically BID. Please continue to monitor for skin irritation. Assessment/Plan for indications treated with psychotropic medications: NA Medical chart and medication regimen reviewed. The following medication irregularities or issues were identified: NA Date Date of Note: 03/10/24 Documented by User: Dr. Segundo Sultana MD 03/10/24 14:25 TCU RX Drug Regimen Review Provider Comments Provider responsibility Provider Comments to Recommendations by Pharmacy Agree
[2024-03-10] MEDS: Acetaminophen 500 MG Tablet 1000 MG PO (15:51)
[2024-03-10] MEDS: Tuberculin,Purif.prot.deriv. 50 TU/ML Vial 0.1 ML ID (15:53)
[2024-03-10] MEDS: Ferrous Sulfate 325 MG Tablet PO (15:53)
[2024-03-10 20:00] VITALS: PULSE 64; O2SAT 97
[2024-03-10] MEDS: Ondansetron ODT 4 MG Tablet PO (22:43)
[2024-03-11] MEDS: 0.9% Saline Lock 10 ML Syringe IV ×2 (02:43→15:18)
[2024-03-11] MEDS: Ensure Plus High Protein 120 ML LIQUID PO (05:32)
[2024-03-11 08:55] VITALS: BP 132/74; PULSE 62; RESP 12; TEMP 37; O2SAT 95
--- NOTE | 2024-03-11 09:16 | NURSING ---
Record Label Internship Note; Activity Asset: Complete
[2024-03-11] MEDS: Menthol/Lanolin/Calamine/Znox 113 GM Tube 1 APPLIC TOPICAL ×2 (09:52→21:33)
[2024-03-11] MEDS: APIXABAN 2.5 MG TABLET (WCH) PO ×2 (09:53→21:33)
[2024-03-11] MEDS: Atorvastatin Calcium 40 MG Tablet PO (09:54)
[2024-03-11] MEDS: amLODIPine 5 MG Tablet PO (09:54)
[2024-03-11] MEDS: Hydroxychloroquine 200 MG Tablet PO (09:55)
[2024-03-11] MEDS: Pantoprazole Sodium 40 MG Tablet PO (09:55)
[2024-03-11] MEDS: Cyanocobalamin 500 MCG Tablet 1000 MCG PO (09:55)
[2024-03-11] MEDS: Cholecalciferol (Vit D3) 125 MCG CAPSULE (5,000 UNITS) PO (09:56)
[2024-03-11] MEDS: Gabapentin 300 MG Capsule PO ×2 (10:03→21:33)
[2024-03-11] MEDS: Ferrous Sulfate 325 MG Tablet PO (11:58)
[2024-03-11 15:00] VITALS: BP 128/57; PULSE 86; RESP 16; TEMP 37.3; O2SAT 98
--- NOTE | 2024-03-12 05:32 | NURSING ---
Patient accepted prune juice with butter for bowel protocol.
[2024-03-12 10:00] VITALS: BP 152/52; PULSE 62; RESP 18; TEMP 37; O2SAT 96
[2024-03-12] MEDS: APIXABAN 2.5 MG TABLET (WCH) PO ×2 (10:37→21:18)
[2024-03-12] MEDS: Gabapentin 300 MG Capsule PO ×2 (10:37→21:18)
[2024-03-12] MEDS: amLODIPine 5 MG Tablet PO (10:37)
[2024-03-12] MEDS: Menthol/Lanolin/Calamine/Znox 113 GM Tube 1 APPLIC TOPICAL ×2 (10:37→21:19)
[2024-03-12] MEDS: Atorvastatin Calcium 40 MG Tablet PO (10:38)
[2024-03-12] MEDS: Pantoprazole Sodium 40 MG Tablet PO (10:38)
[2024-03-12] MEDS: Hydroxychloroquine 200 MG Tablet PO (10:38)
[2024-03-12] MEDS: Ferrous Sulfate 325 MG Tablet PO (12:53)
[2024-03-12] MEDS: 0.9% Saline Lock 10 ML Syringe IV (15:56)
[2024-03-12 16:00] VITALS: RESP 18
[2024-03-12] MEDS: Senna/Docusate Sodium 1 Tablet 2 TABLET PO ×2 (16:26→21:19)
[2024-03-12] MEDS: Ondansetron ODT 4 MG Tablet PO (19:32)
[2024-03-13] MEDS: 0.9% Saline Lock 10 ML Syringe IV (04:57)
[2024-03-13 05:05] VITALS: PULSE 60; RESP 16; O2SAT 99
--- NOTE | 2024-03-13 05:14 | NURSING ---
Confidential email left for appeals coordinator regarding patient refusal of ensure, requesting alternative recommendation.
[2024-03-13] MEDS: Menthol/Lanolin/Calamine/Znox 113 GM Tube 1 APPLIC TOPICAL ×2 (09:56→20:38)
[2024-03-13] MEDS: Hydroxychloroquine 200 MG Tablet PO (09:57)
[2024-03-13] MEDS: Gabapentin 300 MG Capsule PO ×2 (09:57→20:36)
[2024-03-13] MEDS: Pantoprazole Sodium 40 MG Tablet PO (09:57)
[2024-03-13] MEDS: amLODIPine 5 MG Tablet PO (09:57)
[2024-03-13] MEDS: APIXABAN 2.5 MG TABLET (WCH) PO ×2 (09:57→20:38)
[2024-03-13] MEDS: Atorvastatin Calcium 40 MG Tablet PO (09:57)
[2024-03-13] MEDS: Senna/Docusate Sodium 1 Tablet 2 TABLET PO ×2 (09:57→20:37)
[2024-03-13] MEDS: Cholecalciferol (Vit D3) 125 MCG CAPSULE (5,000 UNITS) PO (09:57)
[2024-03-13 10:32] VITALS: BP 131/61; PULSE 55; RESP 18; TEMP 36.3; O2SAT 98
[2024-03-13] MEDS: Ferrous Sulfate 325 MG Tablet PO (11:34)
[2024-03-14 07:48] VITALS: BP 110/76; PULSE 54; RESP 16; TEMP 36.6; O2SAT 98
[2024-03-14] MEDS: Menthol/Lanolin/Calamine/Znox 113 GM Tube 1 APPLIC TOPICAL ×2 (07:56→20:40)
[2024-03-14] MEDS: APIXABAN 2.5 MG TABLET (WCH) PO ×2 (07:57→20:40)
[2024-03-14] MEDS: amLODIPine 5 MG Tablet PO (07:58)
[2024-03-14] MEDS: Atorvastatin Calcium 40 MG Tablet PO (07:58)
[2024-03-14] MEDS: Pantoprazole Sodium 40 MG Tablet PO (07:59)
[2024-03-14] MEDS: Hydroxychloroquine 200 MG Tablet PO (07:59)
[2024-03-14] MEDS: Cyanocobalamin 500 MCG Tablet 1000 MCG PO (08:01)
[2024-03-14] MEDS: Gabapentin 300 MG Capsule PO ×2 (08:07→20:40)
[2024-03-14] MEDS: Senna/Docusate Sodium 1 Tablet 2 TABLET PO ×2 (08:10→20:40)
--- NOTE | 2024-03-14 09:22 | NURSING ---
Addendum entered by Kristi Carbajal 03/14/24 10:44: Call back, RN spoke with clinical staff who asked questions then said they would call back to schedule appt for patient. Dr. Abdul doesn't do consults on TCU. Original Note: Talked with Arlen at doctor Abdul's office, updated her on consult and asked if weight bearing status can be clarified. She will pass along to physician and call back if there are new orders.
[2024-03-14 10:00] VITALS: PULSE 54; RESP 16; O2SAT 98
[2024-03-14] MEDS: Ferrous Sulfate 325 MG Tablet PO (11:44)
[2024-03-14] MEDS: 0.9% Saline Lock 10 ML Syringe IV (11:46)
[2024-03-14 13:42] VITALS: PULSE 79; RESP 15; O2SAT 98
--- NOTE | 2024-03-14 14:00 | NURSING ---
pt refusing Covid vaccine wants to wait until after feeling better & will f/u with PCP
--- NOTE | 2024-03-14 14:49 | NURSING ---
Addendum entered by Indira Daniels 03/15/24 16:20: Attempted call to patient's PCP (Keke Suarez) office regarding pt's immunization records, left voicemail to callback. Original Note: message left with PCP regarding pneumonia vaccine dates if pt has had them. awaiting return call
[2024-03-14] MEDS: Ensure Clear 120 ML Liquid PO ×2 (17:01→20:40)
[2024-03-15] MEDS: Ensure Clear 120 ML Liquid PO ×2 (06:18→11:58)
[2024-03-15 08:32] VITALS: BP 171/61; PULSE 58; RESP 18; TEMP 37.2; O2SAT 97
[2024-03-15] MEDS: Menthol/Lanolin/Calamine/Znox 113 GM Tube 1 APPLIC TOPICAL ×2 (08:34→21:14)
[2024-03-15] MEDS: APIXABAN 2.5 MG TABLET (WCH) PO ×2 (08:34→21:14)
[2024-03-15] MEDS: Polyethylene Glycol 3350 17 GM PACKET PO (08:34)
[2024-03-15] MEDS: Atorvastatin Calcium 40 MG Tablet PO (08:35)
[2024-03-15] MEDS: Pantoprazole Sodium 40 MG Tablet PO (08:35)
[2024-03-15] MEDS: Cholecalciferol (Vit D3) 125 MCG CAPSULE (5,000 UNITS) PO (08:35)
[2024-03-15] MEDS: Hydroxychloroquine 200 MG Tablet PO (08:35)
[2024-03-15] MEDS: Senna/Docusate Sodium 1 Tablet 2 TABLET PO ×2 (08:35→21:14)
[2024-03-15] MEDS: amLODIPine 5 MG Tablet PO (08:35)
[2024-03-15] MEDS: Gabapentin 300 MG Capsule PO ×2 (08:38→21:14)
[2024-03-15 10:16] VITALS: BP 156/69
[2024-03-15 11:41] VITALS: BMI 21.4
[2024-03-15] MEDS: Ferrous Sulfate 325 MG Tablet PO (11:58)
[2024-03-15] MEDS: 0.9% Saline Lock 10 ML Syringe IV (11:59)
--- NOTE | 2024-03-15 12:24 | NURSING ---
Call back from [facility], they will see her for appt on 03/18/24 at 1015. Updated resident and she said family should be able to take her. Granddaughter Anna will transport.
[2024-03-15 15:15] VITALS: BP 156/63; PULSE 69; RESP 20; TEMP 36.6; O2SAT 98
--- NOTE | 2024-03-15 15:15 | NURSING ---
Staff notifies that pt is complaining of nausea (~ at 1515). Pt sitting up in chair, some facial flushing noted. Vitals: bp-156/73, p-69, t-97.8, r-20, sp02-98% room air. Denies pain. Pt also complains of intermittent abdominal cramping/pain which resolves after toileting. Pt reports decreasing nausea approximately 10 minutes after receiving PRN zofran.
[2024-03-15] MEDS: Ondansetron ODT 4 MG Tablet PO (15:19)
[2024-03-15 15:32] VITALS: PULSE 69; RESP 20
--- NOTE | 2024-03-15 16:17 | CASEMGMT ---
Social Work SW completed BIMS () and PHQ-2 () for MDS assessment. Pt was coloring upon this workers arrival. Brittnee Wilson MSW ELECTRIC MOTOR REBUILDER
[2024-03-16] MEDS: Ensure Clear 120 ML Liquid PO ×4 (06:49→21:51)
--- NOTE | 2024-03-16 08:02 | NURSING ---
Hide Dyer Note; MDS for 03/16/2024 Complete
--- NOTE | 2024-03-16 09:06 | NURSING ---
Pt c/o of Nausea w/ moderate amount of yellow emesis and Abdominal pain. Per hourly shift was having loose stools. Dr. Sultana Updated N.O. for KUB. Order read back.
--- NOTE | 2024-03-16 09:20 | RAD_ITS ---
PROCEDURE: ABDOMEN SINGLE VIEW REASON FOR EXAM: Lower abdominal pain with diarrhea and nausea. TECHNIQUE: Single view abdomen. COMPARISON: None FINDINGS: Moderate constipation identified with fecal material distributed throughout the colon. No evidence of bowel obstruction. A stent is seen in the common bile duct. A stent is seen within the pancreatic duct. Small pelvic calcifications identified most consistent with phleboliths. There are degenerative changes of the spine. RAD/Abdomen Single View IMPRESSION: Moderate amount of fecal material is seen in the colon. A stent is seen within the common bile duct as well as in the pancreatic duct. Reading Location: [facility]
--- NOTE | 2024-03-16 10:01 | NURSING ---
Dr. Sultana updated on results of KUB. N.O. for Soap Suds Enema. Order read back.
[2024-03-16] MEDS: Polyethylene Glycol 3350 17 GM PACKET PO (10:45)
[2024-03-16] MEDS: Hydroxychloroquine 200 MG Tablet PO (10:45)
[2024-03-16] MEDS: Pantoprazole Sodium 40 MG Tablet PO (10:45)
[2024-03-16] MEDS: Cyanocobalamin 500 MCG Tablet 1000 MCG PO (10:45)
[2024-03-16] MEDS: amLODIPine 5 MG Tablet PO (10:45)
[2024-03-16] MEDS: Atorvastatin Calcium 40 MG Tablet PO (10:45)
[2024-03-16] MEDS: APIXABAN 2.5 MG TABLET (WCH) PO ×2 (10:45→21:51)
[2024-03-16] MEDS: Senna/Docusate Sodium 1 Tablet 2 TABLET PO ×2 (10:45→21:51)
[2024-03-16] MEDS: Gabapentin 300 MG Capsule PO ×2 (10:47→21:51)
[2024-03-16] MEDS: Menthol/Lanolin/Calamine/Znox 113 GM Tube 1 APPLIC TOPICAL ×2 (10:50→22:00)
[2024-03-16 10:51] VITALS: BP 142/45; PULSE 53
[2024-03-16] MEDS: Ferrous Sulfate 325 MG Tablet PO (12:51)
--- NOTE | 2024-03-16 13:04 | CASEMGMT ---
Social Work IDT met with patient at bedside and dtr via conference call for care plan meeting. Discussed patient's progress in PT/OT/ST/SN. Educated to [facility] insurance with [employer] 03/21 and continued stay is not guaranteed with each review. Provided pt with written communication on insurance process and copay coverage during stay. Pt's goal is to return home with dtr, but dtr does work full-time, so pt will home alone. Pt is [facility] and has f/u appt with ortho on 03/18. SW offered to provide resources for private duty aides, but dtr denied as pt does not have the resources to pay for aides. IDT does not have major concerns with DC home. SW will coordinate skilled HHC at time of DC. Will continue to follow. Brittnee Wilson MSW WRITING TUTOR
[2024-03-16] MEDS: 0.9% Saline Lock 10 ML Syringe IV (13:37)
[2024-03-16 15:27] VITALS: PULSE 79
[2024-03-16 15:53] VITALS: BP 125/54; PULSE 54; RESP 16; TEMP 36.8; O2SAT 96
[2024-03-17 06:25] LABS: Absolute Lymphocyte Count 1.06 X10^3/uL (0.83-4.51); Absolute Neutrophil Count 4.7 X10^3/uL (2.0-7.7); Basophil# 0.07 X10^3/uL; Eosinophil# 0.45 X10^3/uL; Eosinophils% 6.4 % (0-5); Hematocrit 34.7 % (37-47); Hemoglobin 11.1 g/dL (12.0-15.0); Lymphocyte # 1.06 X10^3/ul (0.83-4.51); Lymphocyte % 15.1 % (19-41); Mean Corpuscular Volume 93.8 fL (81-99); Mean Platelet Vol. 8.9 fl (6.2-12.0); Monocyte# 0.69 X10^3/uL; Monocyte% 9.8 % (0-10); NRBC Flagged by Analyzer 0 % (0-5); Neutrophil % 66.8 % (47-70); Platelet Count 371 K/mm3 (150-450); RBC Distribution Width CV 17.8 % (11.6-14.6); RBC Distribution Width SD 61.5 fl (35.1-43.9)
[2024-03-17] MEDS: Ensure Clear 120 ML Liquid PO (06:33)
--- NOTE | 2024-03-17 06:34 | NURSING ---
Patient c/o abdominal cramping this morning. Did have a large bowel movement and stated she is feeling a little better.
[2024-03-17 06:52] LABS: Anion Gap 7 (5-15); BUN 13 mg/dL (7-18); BUN/Creat Ratio 13.2 RATIO (10-20); Calcium,Total 8.6 mg/dL (8.5-10.1); Chloride 108 mmol/L (98-107); Creatinine, Serum 0.98 mg/dL (0.55-1.02); EST Glomerular Filtration Rate 57 mL/min (>60); Est Glom Filt Rate - Afr Amer 69 mL/min (>60); Estimated Creatinine Clearance 28.15 ml/min; Glucose 86 mg/dL (74-106); Potassium 3.6 mmol/L (3.5-5.1); Sodium Level 140 mmol/L (136-145)
[2024-03-17] MEDS: APIXABAN 2.5 MG TABLET (WCH) PO ×2 (08:17→20:51)
[2024-03-17] MEDS: Atorvastatin Calcium 40 MG Tablet PO (08:17)
[2024-03-17] MEDS: Menthol/Lanolin/Calamine/Znox 113 GM Tube 1 APPLIC TOPICAL ×2 (08:17→20:50)
[2024-03-17] MEDS: Polyethylene Glycol 3350 17 GM PACKET PO (08:18)
[2024-03-17] MEDS: Gabapentin 300 MG Capsule PO ×2 (08:20→20:50)
[2024-03-17] MEDS: Pantoprazole Sodium 40 MG Tablet PO (08:20)
[2024-03-17] MEDS: Hydroxychloroquine 200 MG Tablet PO (08:20)
[2024-03-17] MEDS: amLODIPine 5 MG Tablet PO (08:20)
[2024-03-17] MEDS: Senna/Docusate Sodium 1 Tablet 2 TABLET PO ×2 (08:21→20:51)
[2024-03-17] MEDS: Cholecalciferol (Vit D3) 125 MCG CAPSULE (5,000 UNITS) PO (08:21)
[2024-03-17 08:27] VITALS: BP 139/49; PULSE 53; RESP 16; TEMP 37.3; O2SAT 98
[2024-03-17 09:11] VITALS: BP 139/49; PULSE 85; RESP 14; TEMP 37.3; O2SAT 98
[2024-03-17] MEDS: Ferrous Sulfate 325 MG Tablet PO (12:34)
[2024-03-17] MEDS: Tuberculin,Purif.prot.deriv. 50 TU/ML Vial 0.1 ML ID (12:34)
[2024-03-17] MEDS: 0.9% Saline Lock 10 ML Syringe IV (13:58)
--- NOTE | 2024-03-17 16:04 | WOUNDNOTE ---
wound photo: left heel
--- NOTE | 2024-03-17 16:05 | WOUNDNOTE ---
wound photo: right heel'
[2024-03-17 22:00] VITALS: PULSE 54; RESP 16; O2SAT 98
[2024-03-18] MEDS: 0.9% Saline Lock 10 ML Syringe IV ×2 (03:57→21:56)
[2024-03-18 03:59] VITALS: PULSE 52; RESP 18; O2SAT 96
[2024-03-18 07:48] VITALS: BP 132/74; PULSE 51; RESP 16; TEMP 36.5; O2SAT 98
[2024-03-18] MEDS: Menthol/Lanolin/Calamine/Znox 113 GM Tube 1 APPLIC TOPICAL ×2 (08:32→21:54)
[2024-03-18] MEDS: APIXABAN 2.5 MG TABLET (WCH) PO ×2 (08:32→21:54)
[2024-03-18] MEDS: Atorvastatin Calcium 40 MG Tablet PO (08:33)
[2024-03-18] MEDS: Polyethylene Glycol 3350 17 GM PACKET PO (08:33)
[2024-03-18] MEDS: amLODIPine 5 MG Tablet PO (08:34)
[2024-03-18] MEDS: Pantoprazole Sodium 40 MG Tablet PO (08:35)
[2024-03-18] MEDS: Hydroxychloroquine 200 MG Tablet PO (08:35)
[2024-03-18] MEDS: Senna/Docusate Sodium 1 Tablet 2 TABLET PO ×2 (08:36→21:54)
[2024-03-18] MEDS: Cyanocobalamin 500 MCG Tablet 1000 MCG PO (08:37)
[2024-03-18] MEDS: Gabapentin 300 MG Capsule PO ×2 (08:51→21:54)
--- NOTE | 2024-03-18 09:48 | NURSING ---
Addendum entered by John Garay 03/18/24 11:43: Patient returned to unit at this time. Original Note: Patient exited the unit at this time for appt.
--- NOTE | 2024-03-18 10:33 | MDS.RN ---
Information for the MDS was obtained from review of the clinical record, interview of resident, staff, and direct observation of resident?s care.
[2024-03-18] MEDS: Ferrous Sulfate 325 MG Tablet PO (12:05)
--- NOTE | 2024-03-18 15:09 | NURSING ---
Received faxed orders per Ari Lawton after patient's appt. See orders.
[2024-03-19] MEDS: Cholecalciferol (Vit D3) 125 MCG CAPSULE (5,000 UNITS) PO (09:31)
[2024-03-19] MEDS: Gabapentin 300 MG Capsule PO ×2 (09:31→21:12)
[2024-03-19] MEDS: amLODIPine 5 MG Tablet PO (09:31)
[2024-03-19] MEDS: Senna/Docusate Sodium 1 Tablet 2 TABLET PO ×2 (09:31→21:12)
[2024-03-19] MEDS: Atorvastatin Calcium 40 MG Tablet PO (09:31)
[2024-03-19] MEDS: APIXABAN 2.5 MG TABLET (WCH) PO ×2 (09:31→21:13)
[2024-03-19] MEDS: Hydroxychloroquine 200 MG Tablet PO (09:31)
[2024-03-19] MEDS: Pantoprazole Sodium 40 MG Tablet PO (09:31)
[2024-03-19] MEDS: Menthol/Lanolin/Calamine/Znox 113 GM Tube 1 APPLIC TOPICAL ×2 (09:32→21:13)
[2024-03-19] MEDS: 0.9% Saline Lock 10 ML Syringe IV (11:47)
[2024-03-19] MEDS: Ferrous Sulfate 325 MG Tablet PO (11:48)
[2024-03-19 13:25] VITALS: BP 140/50; PULSE 56; RESP 14; TEMP 36.5; O2SAT 98
[2024-03-20 09:23] VITALS: BP 104/57; PULSE 56; RESP 17; TEMP 37.1; O2SAT 96
[2024-03-20] MEDS: Menthol/Lanolin/Calamine/Znox 113 GM Tube 1 APPLIC TOPICAL ×2 (09:26→20:15)
[2024-03-20] MEDS: APIXABAN 2.5 MG TABLET (WCH) PO ×2 (09:26→20:17)
[2024-03-20] MEDS: amLODIPine 5 MG Tablet PO (09:27)
[2024-03-20] MEDS: Pantoprazole Sodium 40 MG Tablet PO (09:27)
[2024-03-20] MEDS: Hydroxychloroquine 200 MG Tablet PO (09:27)
[2024-03-20] MEDS: Atorvastatin Calcium 40 MG Tablet PO (09:27)
[2024-03-20] MEDS: Senna/Docusate Sodium 1 Tablet 2 TABLET PO ×2 (09:28→20:17)
[2024-03-20] MEDS: Gabapentin 300 MG Capsule PO ×2 (09:30→20:31)
[2024-03-20] MEDS: Acetaminophen 500 MG Tablet 1000 MG PO ×2 (10:10→20:31)
[2024-03-20] MEDS: Ferrous Sulfate 325 MG Tablet PO (12:23)
[2024-03-20] MEDS: 0.9% Saline Lock 10 ML Syringe IV (20:15)
[2024-03-21 08:08] VITALS: BP 128/57; PULSE 54; RESP 16; TEMP 36.1; O2SAT 98
[2024-03-21] MEDS: Menthol/Lanolin/Calamine/Znox 113 GM Tube 1 APPLIC TOPICAL ×2 (08:37→20:51)
[2024-03-21] MEDS: APIXABAN 2.5 MG TABLET (WCH) PO ×2 (08:38→20:48)
[2024-03-21] MEDS: Atorvastatin Calcium 40 MG Tablet PO (08:39)
[2024-03-21] MEDS: amLODIPine 5 MG Tablet PO (08:41)
[2024-03-21] MEDS: Hydroxychloroquine 200 MG Tablet PO (08:42)
[2024-03-21] MEDS: Senna/Docusate Sodium 1 Tablet 2 TABLET PO ×2 (08:43→20:48)
[2024-03-21] MEDS: Pantoprazole Sodium 40 MG Tablet PO (08:43)
[2024-03-21] MEDS: Cyanocobalamin 500 MCG Tablet 1000 MCG PO (08:44)
[2024-03-21] MEDS: Cholecalciferol (Vit D3) 125 MCG CAPSULE (5,000 UNITS) PO (08:45)
[2024-03-21] MEDS: Gabapentin 300 MG Capsule PO ×2 (08:58→20:47)
[2024-03-21] MEDS: 0.9% Saline Lock 10 ML Syringe IV (09:18)
--- NOTE | 2024-03-21 11:16 | NURSING ---
Called PCP and LVM for Pneumonia vaccine history.
[2024-03-21] MEDS: Ferrous Sulfate 325 MG Tablet PO (12:17)
[2024-03-21 15:32] VITALS: BP 132/57; PULSE 52; RESP 16; TEMP 36.3; O2SAT 99
[2024-03-21 22:31] VITALS: PULSE 54; RESP 16; O2SAT 97
[2024-03-22 08:43] VITALS: BP 143/53; PULSE 54; RESP 16; TEMP 36.7; O2SAT 99
[2024-03-22] MEDS: Pantoprazole Sodium 40 MG Tablet PO (08:48)
[2024-03-22] MEDS: Hydroxychloroquine 200 MG Tablet PO (08:48)
[2024-03-22] MEDS: amLODIPine 5 MG Tablet PO (08:48)
[2024-03-22] MEDS: Senna/Docusate Sodium 1 Tablet 2 TABLET PO ×2 (08:48→22:30)
[2024-03-22] MEDS: APIXABAN 2.5 MG TABLET (WCH) PO ×2 (08:48→22:30)
[2024-03-22] MEDS: Atorvastatin Calcium 40 MG Tablet PO (08:48)
[2024-03-22] MEDS: Gabapentin 300 MG Capsule PO ×2 (08:51→22:30)
[2024-03-22] MEDS: Menthol/Lanolin/Calamine/Znox 113 GM Tube 1 APPLIC TOPICAL ×2 (08:51→22:36)
[2024-03-22 08:53] VITALS: PULSE 54; RESP 15; O2SAT 99
[2024-03-22] MEDS: 0.9% Saline Lock 10 ML Syringe IV ×2 (09:01→22:30)
[2024-03-22] MEDS: Ferrous Sulfate 325 MG Tablet PO (11:58)
[2024-03-22 15:33] VITALS: BMI 20.4
[2024-03-23] MEDS: Senna/Docusate Sodium 1 Tablet 2 TABLET PO ×2 (09:07→21:26)
[2024-03-23] MEDS: Gabapentin 300 MG Capsule PO ×2 (09:07→21:26)
[2024-03-23] MEDS: Cyanocobalamin 500 MCG Tablet 1000 MCG PO (09:07)
[2024-03-23] MEDS: amLODIPine 5 MG Tablet PO (09:07)
[2024-03-23] MEDS: Atorvastatin Calcium 40 MG Tablet PO (09:07)
[2024-03-23] MEDS: Cholecalciferol (Vit D3) 125 MCG CAPSULE (5,000 UNITS) PO (09:07)
[2024-03-23] MEDS: Hydroxychloroquine 200 MG Tablet PO (09:07)
[2024-03-23] MEDS: APIXABAN 2.5 MG TABLET (WCH) PO ×2 (09:07→21:26)
[2024-03-23] MEDS: Pantoprazole Sodium 40 MG Tablet PO (09:07)
[2024-03-23] MEDS: Menthol/Lanolin/Calamine/Znox 113 GM Tube 1 APPLIC TOPICAL ×2 (09:10→21:25)
[2024-03-23 09:11] VITALS: BP 137/46; PULSE 61
[2024-03-23] MEDS: Ferrous Sulfate 325 MG Tablet PO (11:32)
[2024-03-23] MEDS: 0.9% Saline Lock 10 ML Syringe IV ×2 (11:33→21:25)
[2024-03-23 16:00] VITALS: BP 147/90; PULSE 57; RESP 14; TEMP 36.7; O2SAT 100
[2024-03-24 05:51] LABS: Absolute Lymphocyte Count 1.11 X10^3/uL (0.83-4.51); Absolute Neutrophil Count 2.9 X10^3/uL (2.0-7.7); Basophil# 0.07 X10^3/uL; Basophil% 1.4 % (0-1); Eosinophil# 0.45 X10^3/uL; Eosinophils% 8.7 % (0-5); Hematocrit 33.2 % (37-47); Hemoglobin 10.5 g/dL (12.0-15.0); Lymphocyte # 1.11 X10^3/ul (0.83-4.51); Lymphocyte % 21.6 % (19-41); Mean Corp Hgb Conc 31.6 g/dL (32-36); Mean Corpuscular Hgb 29.4 pg (27.0-32.0); Mean Platelet Vol. 8.4 fl (6.2-12.0); Monocyte# 0.64 X10^3/uL; Monocyte% 12.4 % (0-10); NRBC Flagged by Analyzer 0 % (0-5); Neutrophil # 2.86 X10^3/uL (2.7-7.7); Neutrophil % 55.5 % (47-70); Platelet Count 307 K/mm3 (150-450); RBC Distribution Width CV 17.9 % (11.6-14.6); RBC Distribution Width SD 61.1 fl (35.1-43.9); Red Blood Count 3.57 M/mm3 (4.2-5.4); White Blood Count 5.2 K/mm3 (4.4-11.0)
[2024-03-24 06:20] LABS: Anion Gap 5 (5-15); BUN 20 mg/dL (7-18); BUN/Creat Ratio 19.4 RATIO (10-20); Calcium,Total 8.3 mg/dL (8.5-10.1); Chloride 109 mmol/L (98-107); Creatinine, Serum 1.03 mg/dL (0.55-1.02); EST Glomerular Filtration Rate 54 mL/min (>60); Est Glom Filt Rate - Afr Amer 65 mL/min (>60); Glucose 75 mg/dL (74-106); Potassium 4.8 mmol/L (3.5-5.1); Sodium Level 139 mmol/L (136-145)
[2024-03-24 07:01] VITALS: PULSE 56; O2SAT 96
[2024-03-24] MEDS: Menthol/Lanolin/Calamine/Znox 113 GM Tube 1 APPLIC TOPICAL ×2 (09:27→22:44)
[2024-03-24] MEDS: Gabapentin 300 MG Capsule PO ×2 (09:27→22:45)
[2024-03-24] MEDS: APIXABAN 2.5 MG TABLET (WCH) PO ×2 (09:27→22:46)
[2024-03-24] MEDS: Atorvastatin Calcium 40 MG Tablet PO (09:27)
[2024-03-24] MEDS: amLODIPine 5 MG Tablet PO (09:27)
[2024-03-24] MEDS: Pantoprazole Sodium 40 MG Tablet PO (09:27)
[2024-03-24] MEDS: Hydroxychloroquine 200 MG Tablet PO (09:27)
[2024-03-24 09:48] VITALS: BP 142/55; PULSE 56
[2024-03-24] MEDS: Ferrous Sulfate 325 MG Tablet PO (11:55)
[2024-03-24] MEDS: 0.9% Saline Lock 10 ML Syringe IV (13:20)
[2024-03-24 14:41] VITALS: BP 158/70; PULSE 57; RESP 18; TEMP 36.6; O2SAT 98
[2024-03-25 09:46] VITALS: BP 139/64; PULSE 55; RESP 15; TEMP 36.7; O2SAT 99
[2024-03-25] MEDS: APIXABAN 2.5 MG TABLET (WCH) PO ×2 (09:47→21:11)
[2024-03-25] MEDS: amLODIPine 5 MG Tablet PO (09:48)
[2024-03-25] MEDS: Cholecalciferol (Vit D3) 125 MCG CAPSULE (5,000 UNITS) PO (09:48)
[2024-03-25] MEDS: Pantoprazole Sodium 40 MG Tablet PO (09:48)
[2024-03-25] MEDS: Cyanocobalamin 500 MCG Tablet 1000 MCG PO (09:48)
[2024-03-25] MEDS: Hydroxychloroquine 200 MG Tablet PO (09:48)
[2024-03-25] MEDS: Atorvastatin Calcium 40 MG Tablet PO (09:48)
[2024-03-25] MEDS: Menthol/Lanolin/Calamine/Znox 113 GM Tube 1 APPLIC TOPICAL ×2 (09:49→21:29)
[2024-03-25] MEDS: Gabapentin 300 MG Capsule PO ×2 (09:51→21:11)
[2024-03-25] MEDS: Ferrous Sulfate 325 MG Tablet PO (11:48)
[2024-03-25] MEDS: 0.9% Saline Lock 10 ML Syringe IV (17:43)
[2024-03-25 21:14] VITALS: PULSE 57; RESP 16; O2SAT 96
[2024-03-25] MEDS: Senna/Docusate Sodium 1 Tablet 2 TABLET PO (21:29)
[2024-03-26] MEDS: Atorvastatin Calcium 40 MG Tablet PO (09:13)
[2024-03-26] MEDS: APIXABAN 2.5 MG TABLET (WCH) PO ×2 (09:13→21:13)
[2024-03-26] MEDS: Menthol/Lanolin/Calamine/Znox 113 GM Tube 1 APPLIC TOPICAL ×2 (09:13→21:13)
[2024-03-26] MEDS: amLODIPine 5 MG Tablet PO (09:13)
[2024-03-26] MEDS: Hydroxychloroquine 200 MG Tablet PO (09:13)
[2024-03-26] MEDS: Gabapentin 300 MG Capsule PO ×2 (09:13→21:11)
[2024-03-26] MEDS: Pantoprazole Sodium 40 MG Tablet PO (09:13)
[2024-03-26] MEDS: Senna/Docusate Sodium 1 Tablet 2 TABLET PO ×2 (09:13→21:13)
[2024-03-26 11:32] VITALS: BP 142/60; PULSE 55; RESP 17; TEMP 36.4; O2SAT 99
[2024-03-26] MEDS: Ferrous Sulfate 325 MG Tablet PO (12:36)
[2024-03-26] MEDS: Acetaminophen 500 MG Tablet 1000 MG PO (21:11)
[2024-03-27] MEDS: APIXABAN 2.5 MG TABLET (WCH) PO ×2 (09:31→21:18)
[2024-03-27] MEDS: Menthol/Lanolin/Calamine/Znox 113 GM Tube 1 APPLIC TOPICAL ×2 (09:31→21:21)
[2024-03-27] MEDS: Atorvastatin Calcium 40 MG Tablet PO (09:31)
[2024-03-27] MEDS: Hydroxychloroquine 200 MG Tablet PO (09:32)
[2024-03-27] MEDS: Pantoprazole Sodium 40 MG Tablet PO (09:32)
[2024-03-27] MEDS: Senna/Docusate Sodium 1 Tablet 2 TABLET PO ×2 (09:32→21:18)
[2024-03-27] MEDS: Cholecalciferol (Vit D3) 125 MCG CAPSULE (5,000 UNITS) PO (09:32)
[2024-03-27] MEDS: amLODIPine 5 MG Tablet PO (09:32)
[2024-03-27] MEDS: Gabapentin 300 MG Capsule PO ×2 (09:32→21:16)
[2024-03-27 11:47] VITALS: BP 158/54; PULSE 55; RESP 16; TEMP 36.5; O2SAT 95
[2024-03-27] MEDS: Ferrous Sulfate 325 MG Tablet PO (12:23)
[2024-03-27] MEDS: Acetaminophen 500 MG Tablet 1000 MG PO (21:17)
[2024-03-28] MEDS: Pantoprazole Sodium 40 MG Tablet PO (09:34)
[2024-03-28] MEDS: Gabapentin 300 MG Capsule PO ×2 (09:34→20:21)
[2024-03-28] MEDS: Cyanocobalamin 500 MCG Tablet 1000 MCG PO (09:34)
[2024-03-28] MEDS: Menthol/Lanolin/Calamine/Znox 113 GM Tube 1 APPLIC TOPICAL ×2 (09:34→20:21)
[2024-03-28] MEDS: Hydroxychloroquine 200 MG Tablet PO (09:34)
[2024-03-28] MEDS: amLODIPine 5 MG Tablet PO (09:34)
[2024-03-28] MEDS: APIXABAN 2.5 MG TABLET (WCH) PO ×2 (09:34→20:21)
[2024-03-28] MEDS: Atorvastatin Calcium 40 MG Tablet PO (09:34)
[2024-03-28] MEDS: Senna/Docusate Sodium 1 Tablet 2 TABLET PO ×2 (09:34→20:21)
[2024-03-28] MEDS: Ferrous Sulfate 325 MG Tablet PO (12:15)
[2024-03-28 16:00] VITALS: BP 149/52; PULSE 60; RESP 16; TEMP 36.4; O2SAT 99
[2024-03-29] MEDS: Acetaminophen 500 MG Tablet 1000 MG PO (00:59)
--- NOTE | 2024-03-29 10:10 | WOUNDNOTE ---
wound photo: bilateral heels
[2024-03-29] MEDS: Pantoprazole Sodium 40 MG Tablet PO (10:26)
[2024-03-29] MEDS: Gabapentin 300 MG Capsule PO ×2 (10:26→20:25)
[2024-03-29] MEDS: Cholecalciferol (Vit D3) 125 MCG CAPSULE (5,000 UNITS) PO (10:26)
[2024-03-29] MEDS: amLODIPine 5 MG Tablet PO (10:26)
[2024-03-29] MEDS: Hydroxychloroquine 200 MG Tablet PO (10:26)
[2024-03-29] MEDS: Senna/Docusate Sodium 1 Tablet 2 TABLET PO (10:26)
[2024-03-29] MEDS: Menthol/Lanolin/Calamine/Znox 113 GM Tube 1 APPLIC TOPICAL ×2 (10:27→20:26)
[2024-03-29] MEDS: APIXABAN 2.5 MG TABLET (WCH) PO ×2 (10:27→20:25)
[2024-03-29] MEDS: Atorvastatin Calcium 40 MG Tablet PO (10:27)
[2024-03-29 10:29] VITALS: BP 149/61; PULSE 50
[2024-03-29] MEDS: Ferrous Sulfate 325 MG Tablet PO (11:31)
[2024-03-29 11:35] VITALS: BMI 20.6
[2024-03-29 16:00] VITALS: BP 153/58; PULSE 53; RESP 16; TEMP 36.5; O2SAT 99
[2024-03-30 06:35] VITALS: PULSE 96; RESP 17; O2SAT 96
[2024-03-30 09:06] VITALS: BP 141/52; PULSE 55; RESP 15; TEMP 36.4; O2SAT 99
[2024-03-30] MEDS: Hydroxychloroquine 200 MG Tablet PO (09:10)
[2024-03-30] MEDS: Pantoprazole Sodium 40 MG Tablet PO (09:10)
[2024-03-30] MEDS: Atorvastatin Calcium 40 MG Tablet PO (09:10)
[2024-03-30] MEDS: Cyanocobalamin 500 MCG Tablet 1000 MCG PO (09:10)
[2024-03-30] MEDS: APIXABAN 2.5 MG TABLET (WCH) PO ×2 (09:10→21:19)
[2024-03-30] MEDS: amLODIPine 5 MG Tablet PO (09:10)
[2024-03-30] MEDS: Menthol/Lanolin/Calamine/Znox 113 GM Tube 1 APPLIC TOPICAL ×2 (09:11→21:26)
[2024-03-30] MEDS: Senna/Docusate Sodium 1 Tablet 2 TABLET PO ×2 (09:12→21:19)
[2024-03-30] MEDS: Gabapentin 300 MG Capsule PO ×2 (09:13→21:18)
[2024-03-30] MEDS: Ferrous Sulfate 325 MG Tablet PO (12:03)
--- NOTE | 2024-03-30 15:19 | CASEMGMT ---
Addendum entered by Brittnee Wilson 03/31/24 08:50: Pt presented to this worker's office requesting resources for life alert. SW provided. Pt also stated she will use her rollator at home and declines the FWW, stating I'm 88 years old and I make my own decisions. BODY MAKE UP ARTIST confirms pt will be safe with rollator. SW canceled FWW referral. Addendum entered by Brittnee Wilson 03/30/24 15:49: [facility] can accept as pt was active with them prior to admission. DC orders sent. Addendum entered by Brittnee Wilson 03/30/24 15:26: SN added to order d/t skin breakdown on heels. Original Note: Social Work SW phoned dtr, Ambreen, to discuss setting DC date for pt. Pt has progressed well and IDT is comfortable with pt returning home and being alone while dtr is working during the day. SW offered to set DC date and coordinate skilled HHC and any DME needs. Dtr requesting FWW as that is currently what the ortho PA is recommending and pt only owns a rollator. Pt used [facility] prior and dtr would like to use them again. Pt has f/u appt with ortho PA on 04/07 and dtr agreeable to DC prior to appt. Gdtr is taking pt to appt and can DC prior about [id number]. Dtr confirmed. - SW spoke with pt to update and pt agreeable. - Referred to [facility] for PT/OT and [facility] for FWW via [employer]. plan: DC home with dtr 04/07, [facility] PT/OT, FWW Brittnee Wilson CABLE MECHANIC GEAR HOBBER OPERATOR
--- NOTE | 2024-03-30 17:17 | DS.PCM_ITS ---
Providers Date of Admission: 03/09/24 Primary Care Physician: MARLEE Bolivar Consultations 03/10/24 17:30 Consult: Orthopedics Routine Consulting Provider: Ramirez Abdul Reason for Consult: Nondisplaced fracture of the Left posterior glenoid. EMERGENT Consult: No MD Notified: Yes Date Notified: 03/10/24 Time Notified: 17:30 Method of Notification: Text 03/14/24 14:08 Consult: Onc/Wound/structures technician Routine Comment: Reason for Consult:: pressure injury to heels bilaterally-applied mepilex Reason For Visit: ABD PAIN Diagnosis Discharge Diagnosis (1) Debility: Status: Acute Code(s): R53.81 - Other malaise (2) Choledocholithiasis: Status: Inactive Code(s): K80.50 - Calculus of bile duct without cholangitis or cholecystitis without obstruction (3) Acute anemia: Status: Acute Code(s): D64.9 - Anemia, unspecified (4) Ischemic colitis: Status: Inactive Code(s): K55.9 - Vascular disorder of intestine, unspecified (5) Left shoulder pain: Status: Acute Code(s): M25.512 - Pain in left shoulder (6) CVA (cerebral vascular accident): Status: Acute Code(s): I63.9 - Cerebral infarction, unspecified (7) Hyperlipidemia: Status: Inactive Code(s): E78.5 - Hyperlipidemia, unspecified (8) Vitamin D deficiency: Status: Acute Code(s): E55.9 - Vitamin D deficiency, unspecified (9) Vitamin B12 deficiency: Status: Acute Code(s): E53.8 - Deficiency of other specified B group vitamins (10) Iron deficiency anemia: Status: Inactive Code(s): D50.9 - Iron deficiency anemia, unspecified (11) Neuropathic pain: Status: Acute Code(s): M79.2 - Neuralgia and neuritis, unspecified (12) Rheumatoid arthritis: Status: Acute Code(s): M06.9 - Rheumatoid arthritis, unspecified (13) Afib: Status: Acute Code(s): I48.91 - Unspecified atrial fibrillation Plan 88 year old female with below past medical history hospitalized for choledocholithiasis, underwent ERCP/sphincterotomy x 2/stent x 2, complicated by acute anemia 2/2 lower GI bleed from ischemic colitis, acute kidney injury, left shoulder pain, admitted to TCU with debility, here for rehabilitation, strengthening, prior to discharge home with family. * Debility - PT/OT. * Pain - Tylenol 1000mg q6 prn pain (1-10). * Bowel senna/colace 2 tablets bid prn. * Adult immunization - Administer pneumonia vaccine, covid vaccine, flu vaccine as appropriate. * DVT prophylaxis - on Eliquis. * Hypertension - Amlodipine 5mg daily. * Atrial Fibrillation - Eliquis 2.5mg bid. * Hyperlipidemia - Atorvastatin 40mg qhs. * Vitamin D deficiency - D3 125mcg every other day. * Vitamin B12 deficiency - B12 1000mcg MoWeFr. * Nutrition - Ensure Plus 120mL po 4x/day. * Iron deficiency anemia - Ferrous sulfate 325mg daily. * Neuropathic pain - Gabapentin 300mg bid. * Rheumatoid arthritis - Plaquenil 200mg daily * Nausea - Zofran odt 4mg q6 prn. * GERD - Pantoprazole 40mg daily. * Left shoulder pain - LUE sling. Medications at Discharge Home Medications atorvastatin 40 mg tablet 40 mg PO DAILY cholesterol 09/07/23 cholecalciferol (vitamin D3) 125 mcg (5,000 unit) capsule 125 mcg PO QODAY supplement 09/07/23 ferrous sulfate 325 mg (65 mg iron) tablet 325 mg PO DAILY supplement 09/07/23 gabapentin 300 mg capsule 300 mg PO BID Nerve pain 09/07/23 mecobalamin (vitamin B12) 1,000 mcg chewable tablet 1,000 mcg PO QMWF supplement 09/07/23 hydroxychloroquine 200 mg tablet 200 mg PO DAILY Immunosupressive 01/27/24 acetaminophen 500 mg tablet 1,000 mg (2 x 500 mg) PO Q6H PRN PRN Pain Score 1-10 #0 tabs 04/01/24 amlodipine 5 mg tablet 5 mg PO DAILY 30 days #30 tabs 04/01/24 apixaban 5 mg tablet (Eliquis) 2.5 mg (1/2 x 5 mg) PO BID 30 days #30 tabs 04/01/24 pantoprazole 40 mg tablet,delayed release 40 mg PO DAILY 30 days #30 tabs 04/01/24 Hospital Course Operations None Procedures - (ERCP with stent.) Summary of Care Provided Minutes Spent on Discharge: 35 Hospital Course: 88 year old female with below past medical history hospitalized for choledocholithiasis, underwent ERCP/sphincterotomy x 2/stent x 2, complicated by acute anemia 2/2 lower GI bleed from ischemic colitis, acute kidney injury, left shoulder pain, admitted to TCU with debility, here for rehabilitation, strengthening, prior to discharge home with family. Discharge home with daughter 04/07/2024, [facility] PT/OT, FWW. FWW, pediatric: Patient is unsafe to use a cane and requires a walker for ambulation in the home and the community. Physical Exam Const alert General Appearance: cooperative HEENT normocephalic Eyes PERRL and EOMs intact bilaterally Neck supple, no JVD and no carotid bruits Resp normal respiratory effort, normal air movement and clear to auscultation bilaterally Cardio regular rate and regular rhythm GI normal to inspection, nondistended, normoactive bowel sounds, non-tender and non-distended Extremity normal capillary refill General Extremity: Negative for edema Skin no rashes or lesions noted General Skin Exam: no breakdown Psych affect normal Appearance: appropriate Weight / BMI Weight Weight: 41.73 kg Body Mass Index (BMI) 20.6 ABG / Lab / Microbiology Data 03/31/24 05:12 03/31/24 05:12 Microbiology: Microbiology 03/30/24 Unknown Nasal Secretion SARS-CoV-2 Antigen (Rapid) - Final 03/23/24 06:03 Nasal Secretion SARS-CoV-2 Antigen (Rapid) - Final D/C Instructions Discharge Diet: No restrictions Discharge Activity: Return to Normal Activity, May Shower and Use Walker Weight Bearing Status: Weight bearing as tolerated Call your doctor if you observe: Fever of 101 or Higher, Inability to urinate, Inability to have a bowel movement, Shortness of breath, Dizziness, Fainting spells, Swelling in the ankles, Chest pain and Uncontrolled pain DC O2, CPAP, BIPAP Needs Home O2 Discharge instructions: No Additional Instructions: Discharge home with daughter 04/07/2024, [facility] PT/OT, FWW. FWW, pediatric: Patient is unsafe to use a cane and requires a walker for ambulation in the home and the community. Please Follow Up With: Ari Lawton When: As scheduled. Meaningful Use Info Meaningful Use Meaningful Use Diagnoses (Choose all that apply): None applicable Ischemic Stroke Statin Dosing Therapy Reference: STATIN DOSE THERAPY REFERENCE: * Patients > 75 years receive moderate or high dose statin therapy. * Patients 75 years or YOUNGER should receive HIGH intensity statin dose unless contraindicated. You will be required to document reason for non-treatment if statin daily dose does not meet guidelines. HIGH DOSE STATIN THERAPY DAILY Atorvastatin > than or = to 40 mg Rosuvastatin > than or = to 20 mg Amlodipine + Atorvastatin > than or = to 2.5/40 mg Ezetimibe + Simvastatin 10/80 mg Simvastatin 80mg Discharge Plan Admission Admit Date/Time: 03/09/24 15:40 Primary Reason for Your Visit: Debility. Attending Provider: Segundo Sultana Chi Primary Care Provider: Keke Suarez Consulting Providers: Ramirez Abdul Instructions Additional Instructions / Restrictions: Discharge home with daughter 04/07/2024, [facility] PT/OT, FWW. FWW, pediatric: Patient is unsafe to use a cane and requires a walker for ambulation in the home and the community. Discharge Orders/Prescriptions Prescriptions: New amlodipine 5 mg Tablet 5 mg PO DAILY 30 Days Qty: 30 0RF acetaminophen 500 mg Tablet 1,000 mg PO Q6H PRN PRN (Reason: Pain Score 1-10) Qty: 0 0RF pantoprazole 40 mg Tablet,Delayed Release (Dr/Ec) 40 mg PO DAILY 30 Days Qty: 30 0RF Eliquis 5 mg Tablet 2.5 mg PO BID 30 Days Qty: 30 0RF Continued atorvastatin 40 mg tablet 40 mg PO DAILY gabapentin 300 mg capsule 300 mg PO BID ferrous sulfate 325 mg (65 mg iron) tablet 325 mg PO DAILY mecobalamin (vitamin B12) 1,000 mcg tablet,chewable 1,000 mcg PO QMWF cholecalciferol (vitamin D3) 125 mcg (5,000 unit) capsule 125 mcg PO QODAY hydroxychloroquine 200 mg tablet 200 mg PO DAILY Discontinued lisinopril 40 mg tablet 40 mg PO DAILY Patient Comments: hold for JOANNA. furosemide 40 mg tablet 40 mg PO DAILY Qty: 30 2RF Patient Comments: Hold for 1 week. JOANNA. Follow-up with nephrology acetaminophen 325 mg Tablet 650 mg PO Q4H PRN PRN (Reason: Pain 1-10 Or Fever>99.6) Qty: 0 0RF sennosides-docusate sodium [Stimulant Laxative Plus] 8.6-50 mg Tablet 2 tab PO BID PRN (Reason: Constipation) Qty: 0 0RF Eliquis 5 mg Tablet 2.5 mg PO BID Qty: 0 0RF ondansetron 4 mg tablet,disintegrating 4 mg PO Q6H PRN (Reason: nausea and vomiting) Qty: 30 0RF amlodipine 5 mg Tablet 5 mg PO DAILY Qty: 0 0RF Ensure Plus High Protein 0.08 gram-1.5 kcal/mL Liquid 120 ml PO 4X/DAY Qty: 0 0RF pantoprazole [Protonix] 40 mg tablet,delayed release (DR/EC) 40 mg PO DAILY Qty: 1 0RF Referrals / Follow Up: Joe Patterson DO [Med Staff - Active Staff] - 04/15/24 11:00 am Keke Suarez NP-C [Primary Care Provider] - Disposition Disposition (needs filled in before D/C Order can be placed): Home Health Service
[2024-03-30] MEDS: Acetaminophen 500 MG Tablet 1000 MG PO (21:17)
[2024-03-30 21:27] VITALS: BP 137/52; PULSE 55; O2SAT 97
[2024-03-31 05:46] LABS: Absolute Lymphocyte Count 1.13 X10^3/uL (0.83-4.51); Absolute Neutrophil Count 2.4 X10^3/uL (2.0-7.7); Basophil# 0.05 X10^3/uL; Basophil% 1.1 % (0-1); Eosinophil# 0.34 X10^3/uL; Eosinophils% 7.4 % (0-5); Hematocrit 32.6 % (37-47); Hemoglobin 10.1 g/dL (12.0-15.0); Lymphocyte # 1.13 X10^3/ul (0.83-4.51); Lymphocyte % 24.6 % (19-41); Mean Corpuscular Hgb 28.7 pg (27.0-32.0); Mean Corpuscular Volume 92.6 fL (81-99); Mean Platelet Vol. 8.4 fl (6.2-12.0); Monocyte% 13.1 % (0-10); NRBC Flagged by Analyzer 0 % (0-5); Neutrophil # 2.44 X10^3/uL (2.7-7.7); Neutrophil % 53.1 % (47-70); Platelet Count 231 K/mm3 (150-450); RBC Distribution Width CV 17.9 % (11.6-14.6); RBC Distribution Width SD 62.3 fl (35.1-43.9); Red Blood Count 3.52 M/mm3 (4.2-5.4); White Blood Count 4.6 K/mm3 (4.4-11.0)
[2024-03-31 06:19] LABS: Anion Gap 6 (5-15); BUN 31 mg/dL (7-18); BUN/Creat Ratio 32.1 RATIO (10-20); Calcium,Total 8.3 mg/dL (8.5-10.1); Chloride 113 mmol/L (98-107); Creatinine, Serum 0.96 mg/dL (0.55-1.02); EST Glomerular Filtration Rate 58 mL/min (>60); Est Glom Filt Rate - Afr Amer 70 mL/min (>60); Estimated Creatinine Clearance 27.71 ml/min; Glucose 80 mg/dL (74-106); Potassium 4.5 mmol/L (3.5-5.1); Sodium Level 142 mmol/L (136-145)
[2024-03-31] MEDS: Pantoprazole Sodium 40 MG Tablet PO (09:11)
[2024-03-31] MEDS: Atorvastatin Calcium 40 MG Tablet PO (09:11)
[2024-03-31] MEDS: Hydroxychloroquine 200 MG Tablet PO (09:11)
[2024-03-31] MEDS: APIXABAN 2.5 MG TABLET (WCH) PO ×2 (09:12→22:15)
[2024-03-31] MEDS: amLODIPine 5 MG Tablet PO (09:12)
[2024-03-31] MEDS: Senna/Docusate Sodium 1 Tablet 2 TABLET PO ×2 (09:12→22:15)
[2024-03-31] MEDS: Cholecalciferol (Vit D3) 125 MCG CAPSULE (5,000 UNITS) PO (09:12)
[2024-03-31] MEDS: Menthol/Lanolin/Calamine/Znox 113 GM Tube 1 APPLIC TOPICAL ×2 (09:13→22:16)
[2024-03-31] MEDS: Gabapentin 300 MG Capsule PO ×2 (09:15→22:15)
[2024-03-31 09:19] VITALS: BP 163/53; PULSE 56
[2024-03-31] MEDS: Ferrous Sulfate 325 MG Tablet PO (12:02)
[2024-03-31 15:13] VITALS: BP 117/44; PULSE 52; RESP 14; TEMP 36.4; O2SAT 98
[2024-03-31 22:10] VITALS: BP 128/56; PULSE 52; RESP 16; TEMP 36.7; O2SAT 99
[2024-04-01 04:59] VITALS: PULSE 53; RESP 16; O2SAT 100
[2024-04-01 10:00] VITALS: PULSE 55; O2SAT 100
[2024-04-01] MEDS: Hydroxychloroquine 200 MG Tablet PO (10:08)
[2024-04-01] MEDS: Menthol/Lanolin/Calamine/Znox 113 GM Tube 1 APPLIC TOPICAL ×2 (10:08→21:15)
[2024-04-01] MEDS: Atorvastatin Calcium 40 MG Tablet PO (10:08)
[2024-04-01] MEDS: Pantoprazole Sodium 40 MG Tablet PO (10:08)
[2024-04-01] MEDS: Gabapentin 300 MG Capsule PO ×2 (10:08→21:07)
[2024-04-01] MEDS: Cyanocobalamin 500 MCG Tablet 1000 MCG PO (10:08)
[2024-04-01] MEDS: APIXABAN 2.5 MG TABLET (WCH) PO ×2 (10:08→21:07)
[2024-04-01] MEDS: amLODIPine 5 MG Tablet PO (10:08)
[2024-04-01 10:14] VITALS: BP 179/53; PULSE 53
[2024-04-01] MEDS: Ferrous Sulfate 325 MG Tablet PO (11:43)
[2024-04-01 13:26] VITALS: BP 142/46; PULSE 55; RESP 16; TEMP 36.6; O2SAT 100
[2024-04-01] MEDS: Senna/Docusate Sodium 1 Tablet 2 TABLET PO (21:08)
[2024-04-01] MEDS: Acetaminophen 500 MG Tablet 1000 MG PO (21:12)
[2024-04-02 08:04] VITALS: BP 153/72; PULSE 52; RESP 16; TEMP 36.8; O2SAT 100
[2024-04-02] MEDS: amLODIPine 5 MG Tablet PO (08:07)
[2024-04-02] MEDS: Hydroxychloroquine 200 MG Tablet PO (08:07)
[2024-04-02] MEDS: Pantoprazole Sodium 40 MG Tablet PO (08:07)
[2024-04-02] MEDS: Gabapentin 300 MG Capsule PO ×2 (08:07→20:01)
[2024-04-02] MEDS: Senna/Docusate Sodium 1 Tablet 2 TABLET PO ×2 (08:07→20:01)
[2024-04-02] MEDS: Atorvastatin Calcium 40 MG Tablet PO (08:07)
[2024-04-02] MEDS: APIXABAN 2.5 MG TABLET (WCH) PO ×2 (08:07→20:01)
[2024-04-02] MEDS: Cholecalciferol (Vit D3) 125 MCG CAPSULE (5,000 UNITS) PO (08:08)
[2024-04-02] MEDS: Menthol/Lanolin/Calamine/Znox 113 GM Tube 1 APPLIC TOPICAL ×2 (08:08→20:00)
[2024-04-02] MEDS: Ferrous Sulfate 325 MG Tablet PO (11:51)
--- NOTE | 2024-04-02 13:48 | NURSING ---
PT HAD SHOWER THIS AM, MEPILEX CHANGED TO BILAT HEELS.
[2024-04-02 16:36] VITALS: PULSE 54; RESP 17; O2SAT 99
[2024-04-03] MEDS: Acetaminophen 500 MG Tablet 1000 MG PO (01:14)
[2024-04-03 01:30] VITALS: PULSE 59; RESP 16; O2SAT 98
[2024-04-03] MEDS: Menthol/Lanolin/Calamine/Znox 113 GM Tube 1 APPLIC TOPICAL ×2 (07:58→20:27)
[2024-04-03] MEDS: Atorvastatin Calcium 40 MG Tablet PO (07:58)
[2024-04-03] MEDS: Senna/Docusate Sodium 1 Tablet 2 TABLET PO ×2 (07:58→20:26)
[2024-04-03] MEDS: Pantoprazole Sodium 40 MG Tablet PO (07:59)
[2024-04-03] MEDS: Hydroxychloroquine 200 MG Tablet PO (07:59)
[2024-04-03] MEDS: amLODIPine 5 MG Tablet PO (07:59)
[2024-04-03] MEDS: APIXABAN 2.5 MG TABLET (WCH) PO ×2 (07:59→20:26)
[2024-04-03] MEDS: Gabapentin 300 MG Capsule PO ×2 (08:00→20:26)
[2024-04-03 08:02] VITALS: BP 165/64; PULSE 52; RESP 16; TEMP 36.3; O2SAT 99
[2024-04-03] MEDS: Ferrous Sulfate 325 MG Tablet PO (12:42)
--- NOTE | 2024-04-03 20:29 | NURSING ---
Requests HS meds at this time
[2024-04-04 07:40] VITALS: BP 143/69; PULSE 62; RESP 16; TEMP 36.6; O2SAT 99
[2024-04-04] MEDS: APIXABAN 2.5 MG TABLET (WCH) PO ×2 (09:34→21:40)
[2024-04-04] MEDS: Menthol/Lanolin/Calamine/Znox 113 GM Tube 1 APPLIC TOPICAL ×2 (09:34→21:40)
[2024-04-04] MEDS: Atorvastatin Calcium 40 MG Tablet PO (09:35)
[2024-04-04] MEDS: amLODIPine 5 MG Tablet PO (09:36)
[2024-04-04] MEDS: Pantoprazole Sodium 40 MG Tablet PO (09:37)
[2024-04-04] MEDS: Hydroxychloroquine 200 MG Tablet PO (09:37)
[2024-04-04] MEDS: Cyanocobalamin 500 MCG Tablet 1000 MCG PO (09:38)
[2024-04-04] MEDS: Senna/Docusate Sodium 1 Tablet 2 TABLET PO ×2 (09:38→21:40)
[2024-04-04] MEDS: Cholecalciferol (Vit D3) 125 MCG CAPSULE (5,000 UNITS) PO (09:39)
[2024-04-04] MEDS: Gabapentin 300 MG Capsule PO ×2 (09:55→21:40)
[2024-04-04] MEDS: Ferrous Sulfate 325 MG Tablet PO (12:17)
[2024-04-04 22:00] VITALS: PULSE 50; RESP 16; O2SAT 96
[2024-04-05 06:26] VITALS: PULSE 58; RESP 16; O2SAT 98
[2024-04-05] MEDS: amLODIPine 5 MG Tablet PO (09:39)
[2024-04-05] MEDS: Pantoprazole Sodium 40 MG Tablet PO (09:39)
[2024-04-05] MEDS: APIXABAN 2.5 MG TABLET (WCH) PO ×2 (09:39→20:49)
[2024-04-05] MEDS: Hydroxychloroquine 200 MG Tablet PO (09:39)
[2024-04-05] MEDS: Atorvastatin Calcium 40 MG Tablet PO (09:39)
[2024-04-05] MEDS: Senna/Docusate Sodium 1 Tablet 2 TABLET PO (09:39)
[2024-04-05 09:40] VITALS: BP 139/68; PULSE 57; RESP 17; TEMP 36.6; O2SAT 98
[2024-04-05] MEDS: Menthol/Lanolin/Calamine/Znox 113 GM Tube 1 APPLIC TOPICAL ×2 (09:40→20:52)
[2024-04-05] MEDS: Gabapentin 300 MG Capsule PO ×2 (09:42→20:47)
[2024-04-05] MEDS: Ferrous Sulfate 325 MG Tablet PO (12:37)
[2024-04-05 16:00] VITALS: BMI 21.0
--- NOTE | 2024-04-05 16:08 | CASEMGMT ---
Social Work SW completed BIMS () and PHQ-2 () for MDS assessment. Brittnee Wilson CARDIAC CATH LAB RADIOLOGY TECHNOLOGIST CLINICAL ASSESSMENT MANAGER
[2024-04-05] MEDS: Acetaminophen 500 MG Tablet 1000 MG PO (20:47)
[2024-04-06] MEDS: Atorvastatin Calcium 40 MG Tablet PO (10:08)
[2024-04-06] MEDS: APIXABAN 2.5 MG TABLET (WCH) PO ×2 (10:08→19:45)
[2024-04-06] MEDS: Pantoprazole Sodium 40 MG Tablet PO (10:08)
[2024-04-06] MEDS: Cholecalciferol (Vit D3) 125 MCG CAPSULE (5,000 UNITS) PO (10:08)
[2024-04-06] MEDS: amLODIPine 5 MG Tablet PO (10:08)
[2024-04-06] MEDS: Cyanocobalamin 500 MCG Tablet 1000 MCG PO (10:08)
[2024-04-06] MEDS: Menthol/Lanolin/Calamine/Znox 113 GM Tube 1 APPLIC TOPICAL ×2 (10:09→19:45)
[2024-04-06] MEDS: Hydroxychloroquine 200 MG Tablet PO (10:09)
[2024-04-06] MEDS: Gabapentin 300 MG Capsule PO ×2 (10:16→19:44)
[2024-04-06 10:18] VITALS: BP 139/53; PULSE 54; RESP 16; TEMP 36.4; O2SAT 100
[2024-04-06] MEDS: Ferrous Sulfate 325 MG Tablet PO (11:43)
[2024-04-06 19:49] VITALS: PULSE 57; RESP 18; O2SAT 96
--- NOTE | 2024-04-07 05:42 | NURSING ---
SLIME PLANT OPERATOR providing shower at this time per pt. request
[2024-04-07 05:47] LABS: Absolute Lymphocyte Count 1.07 X10^3/uL (0.83-4.51); Absolute Neutrophil Count 3.5 X10^3/uL (2.0-7.7); Basophil# 0.04 X10^3/uL; Basophil% 0.7 % (0-1); Eosinophil# 0.33 X10^3/uL; Eosinophils% 5.9 % (0-5); Hemoglobin 9.6 g/dL (12.0-15.0); Lymphocyte # 1.07 X10^3/ul (0.83-4.51); Lymphocyte % 19.1 % (19-41); Mean Corpuscular Hgb 29.6 pg (27.0-32.0); Mean Corpuscular Volume 92.6 fL (81-99); Mean Platelet Vol. 8.6 fl (6.2-12.0); Monocyte# 0.63 X10^3/uL; Monocyte% 11.2 % (0-10); NRBC Flagged by Analyzer 0 % (0-5); Neutrophil # 3.49 X10^3/uL (2.7-7.7); Neutrophil % 62.2 % (47-70); Platelet Count 201 K/mm3 (150-450); RBC Distribution Width CV 17.9 % (11.6-14.6); RBC Distribution Width SD 61.2 fl (35.1-43.9); Red Blood Count 3.24 M/mm3 (4.2-5.4); White Blood Count 5.6 K/mm3 (4.4-11.0)
[2024-04-07 05:48] VITALS: PULSE 58; RESP 16; O2SAT 97
[2024-04-07] MEDS: amLODIPine 5 MG Tablet PO (07:44)
[2024-04-07] MEDS: Pantoprazole Sodium 40 MG Tablet PO (07:44)
[2024-04-07] MEDS: Hydroxychloroquine 200 MG Tablet PO (07:44)
[2024-04-07] MEDS: APIXABAN 2.5 MG TABLET (WCH) PO (07:44)
[2024-04-07] MEDS: Atorvastatin Calcium 40 MG Tablet PO (07:44)
[2024-04-07] MEDS: Menthol/Lanolin/Calamine/Znox 113 GM Tube 1 APPLIC TOPICAL (07:45)
[2024-04-07 07:46] VITALS: BP 129/53; PULSE 64; RESP 16; TEMP 36.6; O2SAT 98
[2024-04-07] MEDS: Gabapentin 300 MG Capsule PO (07:50)
[2024-04-07 19:21] LABS: Anion Gap 13 (5-15); BUN 27 mg/dL (4-19); BUN/Creat Ratio 28.9 RATIO (10-20); Calcium 8.8 mg/dL (7.6-11.0); Carbon Dioxide 19.3 mmol/L (22.0-29.0); Chloride 111 mmol/L (96-108); Creatinine, Serum 0.94 mg/dL (0.70-1.20); EST Glomerular Filtration Rate 59 (>60); Estimated Creatinine Clearance 28.82 ml/min; Glucose 85 mg/dL (70-99); Potassium 4.5 mmol/L (3.3-5.1); Sodium Level 143 mmol/L (133-145)
== END 2024-04-07 08:10 | disposition home health service (06) | DRG 57 ==
PROVIDERS: Admitting Provider Family Medicine Geriatric Medicine; PCP Nurse Practitioner Family; Visit Provider Family Medicine Geriatric Medicine
DX: I69.341 Monoplegia of lower limb following cerebral infarction affecting right dominant side (principal); K55.9 Vascular disorder of intestine, unspecified; K80.71 Calculus of gallbladder and bile duct without cholecystitis with obstruction; N18.32 Chronic kidney disease, stage 3b; M06.9 Rheumatoid arthritis, unspecified; D50.9 Iron deficiency anemia, unspecified; I12.9 Hypertensive chronic kidney disease with stage 1 through stage 4 chronic kidney disease, or unspecified chronic kidney disease; I48.91 Unspecified atrial fibrillation; E78.5 Hyperlipidemia, unspecified; E53.8 Deficiency of other specified B group vitamins; K57.30 Diverticulosis of large intestine without perforation or abscess without bleeding; E55.9 Vitamin D deficiency, unspecified; M79.7 Fibromyalgia; K21.9 Gastro-esophageal reflux disease without esophagitis; S42.145D Nondisplaced fracture of glenoid cavity of scapula, left shoulder, subsequent encounter for fracture with routine healing; Z79.01 Long term (current) use of anticoagulants; Z79.899 Other long term (current) drug therapy; X58.XXXD Exposure to other specified factors, subsequent encounter
CPT/HCPCS: 36415; 74018; 80048; 85025; 87811; 92523; 92526; 92610; 97110; 97116; 97129; 97162; 97166; 97530; 97535; A4216

== ENCOUNTER → 2024-04-15 | Outpatient (CLI) | payer MEDICARE, SELFPAY ==
--- NOTE | 2024-04-15 12:21 | RAD_ITS ---
PROCEDURE: ABDOMEN SINGLE VIEW REASON FOR EXAM: Biliary and pancreatic stent. TECHNIQUE: Single view abdomen. COMPARISON: None FINDINGS: The biliary and pancreatic stents maintain their positions, projecting over the right hemiabdomen. Bowel gas pattern is normal. No evidence of bowel obstruction. No suspicious calcifications. Levocurvature of the lumbar spine. Multilevel spondylosis. RAD/Abdomen Single View IMPRESSION: Biliary and pancreatic stents are stable. Reading Location: [place] [id number]
== END | disposition home or self-care (01) ==
LOC: RAD 12:21
PROVIDERS: PCP Nurse Practitioner Family; Referring Provider Internal Medicine Gastroenterology; Visit Provider Internal Medicine Gastroenterology
DX: Z98.890 Other specified postprocedural states (principal)
CPT/HCPCS: 74018

== ENCOUNTER → 2024-05-20 | Outpatient (CLI) | payer MEDICARE, SELFPAY ==
[2024-05-20 15:30] LABS: Absolute Lymphocyte Count 0.96 X10^3/uL (0.83-4.51); Absolute Neutrophil Count 4.4 X10^3/uL (2.0-7.7); Basophil# 0.04 X10^3/uL; Basophil% 0.7 % (0-1); Eosinophil# 0.15 X10^3/uL; Eosinophils% 2.5 % (0-5); Hematocrit 33.6 % (37-47); Hemoglobin 10.7 g/dL (12.0-15.0); Lymphocyte # 0.96 X10^3/ul (0.83-4.51); Lymphocyte % 15.8 % (19-41); Mean Corp Hgb Conc 31.8 g/dL (32-36); Mean Corpuscular Hgb 31.8 pg (27.0-32.0); Mean Corpuscular Volume 99.7 fL (81-99); Monocyte# 0.46 X10^3/uL; Monocyte% 7.6 % (0-10); NRBC Flagged by Analyzer 0 % (0-5); Neutrophil # 4.43 X10^3/uL (2.7-7.7); Neutrophil % 72.9 % (47-70); Platelet Count 344 K/mm3 (150-450); RBC Distribution Width CV 15.9 % (11.6-14.6); RBC Distribution Width SD 57.9 fl (35.1-43.9); Red Blood Count 3.37 M/mm3 (4.2-5.4); White Blood Count 6.1 K/mm3 (4.4-11.0)
[2024-05-20 16:02] LABS: ALB/GLOB Ratio 1.5 RATIO (0.9-2.4); AST(SGOT) 25 U/L (<=31); Alanine Aminotransfer ALT/SGPT 19 U/L (<=34); Albumin, Serum 4.2 g/dL (3.4-4.8); Alkaline Phosphatase 135 U/L (35-104); Anion Gap 13 (5-15); BUN 47 mg/dL (4-19); Calcium,Total 9.7 mg/dL (7.6-11.0); Carbon Dioxide 21.4 mmol/L (21.0-32.0); Chloride 106 mmol/L (98-108); Creatinine, Serum 1.28 mg/dL (0.70-1.20); EST Glomerular Filtration Rate 41 (>60); Globulin 2.8 g/dL (2.2-4.2); Glucose 88 mg/dL (70-99); Potassium 4.4 mmol/L (3.3-5.1); Protein, Total 6.9 g/dL (5.9-8.4); Sodium Level 141 mmol/L (133-145)
== END | disposition home or self-care (01) ==
LOC: BFHLAB 11:44
PROVIDERS: PCP Nurse Practitioner Family; Visit Provider Nurse Practitioner Family
DX: I12.9 Hypertensive chronic kidney disease with stage 1 through stage 4 chronic kidney disease, or unspecified chronic kidney disease (principal); N18.30 Chronic kidney disease, stage 3 unspecified
CPT/HCPCS: 36415; 80053; 85025

== ENCOUNTER 2024-07-12 12:21 | Day surgery (SDC) | payer MEDICARE, SELFPAY ==
--- NOTE | 2024-07-06 20:31 | PAT.ANESEVAL ---
Pre-Assessment Diagnosis/Proposed Procedure Planned Operative Procedure(s): ERCP Anesthesia History Anesthesia History - insole tape stitcher uco: Anesthesia History - insole tape stitcher uco Hx Hospitalization Yes: 02/2024 ABD PAIN, ERCP 07/06/24 15:32 Any Problems With Anesthesia No 07/06/24 15:32 Cholinesterase deficiency No 07/06/24 15:32 You/Your Family Experience No 07/06/24 15:32 fever (hyperthermia) with Relationship Recent Exposure to Contagious No 03/06/24 21:24 Disease Does patient have nerve No 07/06/24 15:32 stimulator Patient instructed to have device shut off --Does patient have Pacemaker or ICD? When Was Last Pacemaker Check QUESTION #4 FULL TEXT: You/Your Family Experience fever (hyperthermia) with Anesthesia Last Oral Intake Last Oral intake: Last Oral Intake NPO since Meds taken in AM with sips of water? Meds patient instructed to take am of surgery PONV PONV - insole tape stitcher uco: PONV - insole tape stitcher uco Female Yes 07/06/24 15:32 HX of Motion Sickness No 07/06/24 15:32 HX of N/V After Surgery No 07/06/24 15:32 Non-Smoker Yes 07/06/24 15:32 Duration of Surgery greater No 07/06/24 15:32 than 60 minutes Number of Risk Factors 2 07/06/24 15:32 PONV Score Moderate Risk 07/06/24 15:32 Height & Weight Height & Weight: Anesthesia: Height & Weight Height 4 ft 8 in 05/16/24 07:59 Respiratory Assessment Respiratory Assessment - insole tape stitcher uco: Respiratory Tract Infection Hx - insole tape stitcher uco Hx Respiratory Tract Infection No 07/06/24 15:32 STOP Sleep Apnea STOP Sleep Apnea - insole tape stitcher uco: STOP Sleep Apnea - insole tape stitcher uco Hx Hypertension Yes: CONTROLLED WITH MED 07/06/24 15:32 Hx Sleep Apnea No 07/06/24 15:32 CPAP BIPAP Do you snore loudly (louder No 07/06/24 15:32 than talking or can be heard Do you often feel tired/ No 07/06/24 15:32 fatigued/ sleepy during daytime? Has anyone observed you stop No 07/06/24 15:32 breathing during sleep? STOP Results Negative 07/06/24 15:32 QUESTION #5 FULL TEXT : Do you snore loudly (louder than talking or can be heard through closed doors)? 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 Specify any problems Hx of Preganancy in last 3 N/A 07/06/24 15:32 Months Nurse Filling Out Transfusion NBUCHER 07/06/24 15:32 & Questions: Date: 07/06/24 07/06/24 15:32 Time: 15:37 07/06/24 15:32 Patient unable to answer at this time (ie. confused, unrespo /Reproduction History /Reproductive History - insole tape stitcher uco: /Reproductive Hx- insole tape stitcher uco Hx Now No 07/06/24 15:32 Gestational Age (in weeks): EDC: Hx Hx Para Hx Section SAB No 07/06/24 15:32 PFSH Medical History (Updated 07/06/24 @ 15:47 by Rose Kilpatrick) Wears hearing aid Loss of hearing Wears glasses Wears partial dentures Wears dentures Post-menopausal Walker as ambulation aid Ambulates with cane History of renal disease Low iron High cholesterol Diverticulosis History of hiatal hernia History of edema Non-smoker Cardiology follow-up encounter History of Holter monitoring History of echocardiogram Hypertension History of atrial fibrillation Choledocholithiasis Ischemic colitis Iron deficiency anemia Debility CKD stage 3b, 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 CVA (cerebral vascular accident) Renal failure 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, sinus Hyperlipidemia Aortic valve disease Cardiac arrhythmia Fibromyalgia CKD (chronic kidney disease) stage 3, GFR 30-59 ml/min Rheumatoid arthritis Osteoporosis Afib Essential (primary) hypertension Shoulder pain with history of repair of rotator cuff Sjogren syndrome Home Medications ?Medication ?Instructions ?Recorded ?Last Taken ?Type cholecalciferol (vitamin D3) 125 125 mcg PO QODAY supplement 09/07/23 03/09/24 10:00 History mcg (5,000 unit) capsule gabapentin 300 mg capsule 300 mg PO BID Nerve pain 09/07/23 03/09/24 10:00 History mecobalamin (vitamin B12) 1,000 1,000 mcg PO QMWF supplement 09/07/23 03/09/24 10:00 History mcg chewable tablet hydroxychloroquine 200 mg tablet 200 mg PO DAILY Immunosupressive 01/27/24 03/09/24 10:00 History acetaminophen 500 mg tablet 1,000 mg (2 x 500 mg) PO Q6H PRN 04/01/24 Unknown Rx PRN Pain Score 1-10 #0 tabs amlodipine 5 mg tablet 5 mg PO DAILY 30 days #30 tabs 04/01/24 Unknown Rx pantoprazole 40 mg tablet,delayed 40 mg PO DAILY 30 days #30 tabs 04/01/24 Unknown Rx release atorvastatin 40 mg tablet 40 mg PO DAILY cholesterol #30 tabs 05/16/24 Unknown Rx apixaban 5 mg tablet (Eliquis) 5 mg PO BID 07/06/24 Unknown History Allergy/AdvReac Type Severity Reaction Status Date / Time ciprofloxacin (From Cipro) Allergy Intermediate NEEDS Verified 05/16/24 16:52 FOLLOW-UP duloxetine Allergy Intermediate NEEDS Verified 05/16/24 16:52 FOLLOW-UP ibuprofen Allergy Intermediate NEEDS Verified 05/16/24 16:52 FOLLOW-UP meloxicam Allergy Intermediate NEEDS Verified 05/16/24 16:52 FOLLOW-UP Penicillins Allergy Intermediate NEEDS Verified 05/16/24 16:52 FOLLOW-UP sulfamethoxazole (From Allergy Intermediate NEEDS Verified 05/16/24 16:52 Septra) FOLLOW-UP trimethoprim (From Septra) Allergy Intermediate NEEDS Verified 05/16/24 16:52 FOLLOW-UP Surgical History (Updated 07/06/24 @ 15:47 by Rose Kilpatrick) History of repair of rectocele History of bladder repair surgery History of ERCP History of appendectomy History of cardiac radiofrequency ablation (RFA) S/P hernia repair Social History household members: family housing: house Smoking Status: Never smoker alcohol intake: never substance use type: does not use Audit: Pertinent Findings Pertinent Findings EKG Perinent findings: February 29, 2024. Sinus bradycardia at 53 bpm with first-degree block. Left axis deviation. Right bundle branch block. Nonspecific T wave abnormalities in anterior leads. Echo (EF%) pertinent findings: 12/18/2023. Ejection fraction is 55%. PASP is 60 mmHg. No aortic stenosis is noted. Consult pertinent findings: 05/16/2024. Michael WHALEN. 1. Paroxysmal atrial fibrillation?acute-currently not on medication secondary to bradycardia. Appears to be regular rhythm today. Continue Eliquis. 2. Rbveepxnyzhi-jrendiva-rjcdyzh of hypertension. Well-controlled at this time. Additional pertinent findings: Holter monitor February 04, 2023. Predominant rhythm is sinus bradycardia to sinus tachycardia. With occurrences of atrial flutter and atrial fibrillation. 5.5% atrial fibrillation. 0.98% PACs. 0.05% PVCs. Recommendation Anesthesia Recommendation Anesthesia recommendation: OPTIMIZED for anesthesia
[2024-07-12] VITALS (9 sets, daily range): BP systolic 100–134; BP diastolic 52–79; PULSE 62–98; RESP 14–18; TEMP 36.1–36.8; O2SAT 96–100; BMI 22.7
--- NOTE | 2024-07-12 12:33 | PCM.HP.STD ---
HPI - General General Date of Admission: 07/12/24 Date of Service: 07/12/24 HPI Narrative JONNA EVANS, is a 88 F who presentsSHKANDY EVANS, is a 88 F who presents to the office today for hospital follow up. [facility] hospitalization 02.29.24 - 03.09.24 abd pain --- GI consulted for bleeding / anemia EGD 03.01.24 Normal esophagus. Erythematous mucosa in the gastric body and antrum. No gross lesions in the second portion of the duodenum. No specimens collected. Colonoscopy 03.04.24 Patchy moderate inflammation was found in the recto-sigmoid colon, in the sigmoid colon and in the descending colon secondary to ischemic colitis. Biopsied. Diverticulosis in the recto-sigmoid colon, in the sigmoid colon, in the descending colon, at the splenic flexure and in the transverse colon. Rectal prolapse. Non-bleeding internal hemorrhoids. ERCP 03.07.24 A single localized biliary stricture was found in the lower third of the main bile duct. The stricture was indeterminate. The entire biliary tree was dilated, acquired. An irregularity was found in the pancreatic duct in the body of the pancreas and pancreatic duct in the tail of the pancreas. Choledocholithiasis was found. Complete removal was accomplished by biliary sphincterotomy and balloon extraction. A pancreatic sphincterotomy was performed. The biliary tree was swept and debris was found. A biliary sphincterotomy was performed. The biliary tree was swept. One temporary stent was placed into the common bile duct. OV 3.7.25 pt reports that she has been feeling well since hospitalization. Has had some bloating and discomfort on her R side, but states that this is infrequent. Reports normal bm and denies blood in the stool. 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 CVA (cerebral vascular accident) Renal failure 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, sinus Hyperlipidemia Aortic valve disease Cardiac arrhythmia Fibromyalgia CKD (chronic kidney disease) stage 3, GFR 30-59 ml/min Rheumatoid arthritis Osteoporosis Afib Essential (primary) hypertension Shoulder pain with history of repair of rotator cuff Sjogren syndrome Home Medications ?Medication ?Instructions ?Recorded ?Last Taken ?Type cholecalciferol (vitamin D3) 125 125 mcg PO QODAY supplement 09/07/23 03/09/24 10:00 History mcg (5,000 unit) capsule gabapentin 300 mg capsule 300 mg PO BID Nerve pain 09/07/23 03/09/24 10:00 History mecobalamin (vitamin B12) 1,000 1,000 mcg PO QMWF supplement 09/07/23 03/09/24 10:00 History mcg chewable tablet hydroxychloroquine 200 mg tablet 200 mg PO DAILY Immunosupressive 01/27/24 03/09/24 10:00 History acetaminophen 500 mg tablet 1,000 mg (2 x 500 mg) PO Q6H PRN 04/01/24 Unknown Rx PRN Pain Score 1-10 #0 tabs amlodipine 5 mg tablet 5 mg PO DAILY 30 days #30 tabs 04/01/24 Unknown Rx pantoprazole 40 mg tablet,delayed 40 mg PO DAILY 30 days #30 tabs 04/01/24 Unknown Rx release atorvastatin 40 mg tablet 40 mg PO DAILY cholesterol #30 tabs 05/16/24 Unknown Rx apixaban 5 mg tablet (Eliquis) 5 mg PO BID 07/06/24 Unknown History Allergy/AdvReac Type Severity Reaction Status Date / Time ciprofloxacin (From Cipro) Allergy Intermediate NEEDS Verified 05/16/24 16:52 FOLLOW-UP duloxetine Allergy Intermediate NEEDS Verified 05/16/24 16:52 FOLLOW-UP ibuprofen Allergy Intermediate NEEDS Verified 05/16/24 16:52 FOLLOW-UP meloxicam Allergy Intermediate NEEDS Verified 05/16/24 16:52 FOLLOW-UP Penicillins Allergy Intermediate NEEDS Verified 05/16/24 16:52 FOLLOW-UP sulfamethoxazole (From Allergy Intermediate NEEDS Verified 05/16/24 16:52 Sept) FOLLOW-UP trimethoprim (From Octra) Allergy Intermediate NEEDS Verified 05/16/24 16:52 FOLLOW-UP Surgical History History of repair of rectocele History of bladder repair surgery History of ERCP History of appendectomy History of cardiac radiofrequency ablation (RFA) S/P hernia repair Social History household members: family housing: house Smoking Status: Never smoker alcohol intake: never substance use type: does not use ROS Constitutional Constitutional: Denies fatigue, fever(s), poor appetite, weight gain or weight loss Gastrointestinal Gastrointestinal: Denies belching, bloating, change in bowel habits, change in stool character, chewing difficulty, coffee ground emesis, constipation, cramping, diarrhea, dyspepsia, dysphagia, early satiety, excessive flatus, fecal incontinence, heartburn, hematemesis, hematochezia, hemorrhoids, loose stools, melena, nausea, odynophagia, rectal bleeding, tenesmus, vomiting or weight changes Physical Exam Const alert, oriented x3, no apparent distress and healthy appearing General Appearance: cooperative GI normal to inspection, nondistended, normoactive bowel sounds, soft to palpation, non-tender and non-distended Percussion: normal to percussion Rectal Exam: deferred Assessment & Plan Assessment/Plan (1) History of biliary stent insertion: (2) Choledocholithiasis: PLAN: Assessment and Plan Assessment and Plan (1) History of biliary stent insertion: Status: Acute (2) GI bleed: Status: Acute (3) Choledocholithiasis: Status: Acute (4) Ischemic colitis: Status: Acute Plan: Mrs. Evans is an 88-year-old white female who was admitted initially on 02/22/2024 and discharged to the transitional care unit on 02/25/2024 at which time she was found to have new stroke. She also had JOANNA at that time. She was discharged to transitional care unit for ongoing rehab on Eliquis. On 02/29/2024 she was noted to be positive for blood in her stool and her Eliquis was held. She then complained of abdominal pain and some right-sided weakness so she was transferred to the emergency department for evaluation. CT of her head was unremarkable and CT of the abdomen pelvis showed ileitis with fecal retention. MRCP was also recommended in the CT report as there were apparent dilated ducts. The patient denied any fevers, chills, nausea, or vomiting. Hemoglobin at that time was 9.6. Vital signs were overtly unremarkable and stable when compared to previous. She was admitted to the medical floor and I was consulted and recommended proceeding with an EGD. It was performed on 03/01/2024 and demonstrated normal esophagus, erythematous mucosa in the gastric body and antrum, no gross lesions to the second portion of the duodenum with no biopsies taken. Given and overtly unremarkable EGD and colonoscopy was recommended and patient did have a couple episodes of bleeding with the prep. On colonoscopy she was found to have patchy moderate inflammation in the rectosigmoid, sigmoid, and descending colon secondary to ischemic colitis which was biopsied. She was also found to have diverticulosis in the rectosigmoid, sigmoid, descending, splenic flexure and transverse colon. Rectal prolapse was also noted. She had nonbleeding internal hemorrhoids. It was felt that her GI bleeding was related to ischemic colitis. MRCP was performed and showed dilated ducts and the patient was taken for an ERCP on 03/07/2024 at which time she was found to have a single localized biliary stricture in the lower third of the main bile duct, the entire biliary tree was dilated and irregularity was found in the pancreatic duct in the body of the pancreas and the pancreatic tail duct, choledocholithiasis was found and complete removal of the stone was achieved by biliary sphincterotomy and balloon extraction, pancreatic sphincterotomy was also performed and a temporary stent was placed both in the common bile duct and the pancreatic duct. These will be removed today during ERCP. She was explained alternatives, risk, benefits include not withstanding bleeding, infection, sepsis, perforation, need for surgery and . She will have an ASA of 3.
[2024-07-12] MEDS: Lactated Ringers 1,000 ML 15 ML IV (12:56)
--- NOTE | 2024-07-12 13:05 | PCM.PRE.AN2 ---
ASA Classification* ASA Classification ASA Classification: 3 Assessment & Plan Anesthesia* Anesthesia Assessment Anesthesia Assessment: Discussed sedation and/or anesthesia options, risks, benefits, and alternatives with patient/parents/legal guardian/POA. Questions invited. The patient/parents/legal guardian/POA seems to understand and agrees to proceed with anesthesia plan. Reviewed the physical assessment, medical history, allergy history and patient home medications list prior to surgery/procedure/anesthetic and documented any changes. Performed airway and anesthesia risk assessments. Anesthesia Type Anesthesia Type: MAC History Source History Obtained from:: Patient and Chart Anesthesia Focused Assessment* Temperature: 98.2 F Pulse Rate: 62 Blood Pressure: 131/73 Respiratory Rate: 18 Pulse Ox: 100 Oxygen Delivery Method: Room Air Airway Assessment Mouth opens: >3 cm Mallampati Score: IV Teeth Condition: Dentures (Upper partials are out.) and Partial (Patient has a lower partial) Neck Range of motion (ROM): Limited ROM (Slight decrease in extension) Focused Labs Anesthesia Preop lab: CBC WBC 6.1 K/mm3 (4.4-11.0) 05/20/24 11:45 05/20/24 RBC 3.37 M/mm3 (4.2-5.4) L 05/20/24 11:45 05/20/24 Hgb 10.7 g/dL (12.0-15.0) L 05/20/24 11:45 05/20/24 Hct 33.6 % (37-47) L 05/20/24 11:45 05/20/24 Plt Count 344 K/mm3 (150-450) 05/20/24 11:45 05/20/24 CHEMISTRY Potassium 4.4 mmol/L (3.3-5.1) 05/20/24 11:45 05/20/24 Sodium 141 mmol/L (133-145) 05/20/24 11:45 05/20/24 Magnesium 1.9 mg/dL (1.6-2.6) 03/08/24 06:57 03/08/24 Phosphorus 4.6 mg/dL (2.5-4.9) 03/08/24 06:57 03/08/24 BUN 47 mg/dL (4-19) H 05/20/24 11:45 05/20/24 Creatinine 1.28 mg/dL (0.70-1.20) H 05/20/24 11:45 05/20/24 Glucose 88 mg/dL (70-99) 05/20/24 11:45 05/20/24 POC Glucose 97 mg/dL (74-106) 02/29/24 16:06 02/29/24 TSH 3.370 uIU/mL (0.358-3.740) 02/23/24 06:04 02/23/24 COAG PT 16.7 SECONDS (11.7-14.9) H 02/25/24 05:09 02/25/24 Pre-Assessment Diagnosis/Proposed Procedure Planned Operative Procedure(s): ERCP Anesthesia History Anesthesia History - global process owner: Anesthesia History - global process owner Hx Hospitalization Yes: 02/2024 ABD PAIN, ERCP 07/06/24 15:32 Any Problems With Anesthesia No 07/06/24 15:32 Cholinesterase deficiency No 07/06/24 15:32 You/Your Family Experience No 07/06/24 15:32 fever (hyperthermia) with Relationship Recent Exposure to Contagious No 07/12/24 12:44 Disease Does patient have nerve No 07/06/24 15:32 stimulator Patient instructed to have device shut off --Does patient have Pacemaker No 07/12/24 12:44 or ICD? When Was Last Pacemaker Check QUESTION #4 FULL TEXT: You/Your Family Experience fever (hyperthermia) with Anesthesia Last Oral Intake Last Oral intake: Last Oral Intake NPO since 00:00 07/12/24 12:44 Meds taken in AM with sips of No 07/12/24 12:44 water? Meds patient instructed to take am of surgery PONV PONV - global process owner: PONV - global process owner Female Yes 07/06/24 15:32 HX of Motion Sickness No 07/06/24 15:32 HX of N/V After Surgery No 07/06/24 15:32 Non-Smoker Yes 07/06/24 15:32 Duration of Surgery greater No 07/06/24 15:32 than 60 minutes Number of Risk Factors 2 07/06/24 15:32 PONV Score Moderate Risk 07/06/24 15:32 Height & Weight Height & Weight: Anesthesia: Height & Weight Height 4 ft 8 in 07/12/24 12:44 Weight: 46 kg 07/12/24 12:44 Body Mass Index (BMI) 22.7 07/12/24 12:44 Respiratory Assessment Respiratory Assessment - global process owner: Respiratory Tract Infection Hx - global process owner Hx Respiratory Tract Infection No 07/06/24 15:32 STOP Sleep Apnea STOP Sleep Apnea - global process owner: STOP Sleep Apnea - global process owner Hx Hypertension Yes: CONTROLLED WITH MED 07/06/24 15:32 Hx Sleep Apnea No 07/06/24 15:32 CPAP BIPAP Do you snore loudly (louder No 07/06/24 15:32 than talking or can be heard Do you often feel tired/ No 07/06/24 15:32 fatigued/ sleepy during daytime? Has anyone observed you stop No 07/06/24 15:32 breathing during sleep? STOP Results Negative 07/06/24 15:32 QUESTION #5 FULL TEXT : Do you snore loudly (louder than talking or can be heard through closed doors)? Tobacco Use History Tobacco Use History - global process owner: Tobacco Use History - global process owner Tobacco Use Smoking Status Never smoker 07/06/24 15:32 Hx Tobacco Use No 07/06/24 15:32 Years Smoking Packs Smoked per Day Smoking Cessation Date was within the last 15 years Hx Smoking Cessation Date Hx Smoking Cessation No 07/06/24 15:32 Counseling Hematologic Medial History Hematologic Hx - global process owner: Hematologic Medical Hx - lead manufacturing engineer Hx of Blood Transfusion Yes 07/06/24 15:32 Hx of Transfusion in last 3 No 07/06/24 15:32 Months Date of Last Transfusion (if within last 3 months) Ever experience any problems No 07/06/24 15:32 with transfusion(s)? Specify any problems Hx of Preganancy in last 3 N/A 07/06/24 15:32 Months Nurse Filling Out Transfusion NBUCHER 07/06/24 15:32 & Questions: Date: 07/06/24 07/06/24 15:32 Time: 15:37 07/06/24 15:32 Patient unable to answer at this time (ie. confused, unrespo /Reproduction History /Reproductive History - global process owner: /Reproductive Hx- global process owner Hx Now No 07/06/24 15:32 Gestational Age (in weeks): EDC: Hx Hx Para Hx Section SAB No 07/06/24 15:32 Active Medications Active Medications: Current Medications Generic Name Dose Route Start Last Admin Trade Name Freq PRN Reason Stop Dose Admin Lactated Ringer's 1,000 mls @ 15 mls/hr 07/12/24 12:30 07/12/24 12:56 IV 15 mls/hr .Q48H SAY Administration PFSH Medical History Wears hearing aid Loss of hearing Wears glasses Wears partial dentures Wears dentures Post-menopausal Walker as ambulation aid Ambulates with cane History of renal disease Low iron High cholesterol Diverticulosis History of hiatal hernia History of edema Non-smoker Cardiology follow-up encounter History of Holter monitoring History of echocardiogram Hypertension History of atrial fibrillation Choledocholithiasis Ischemic colitis Iron deficiency anemia Debility CKD stage 3b, 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 CVA (cerebral vascular accident) Renal failure 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, sinus Hyperlipidemia Aortic valve disease Cardiac arrhythmia Fibromyalgia CKD (chronic kidney disease) stage 3, GFR 30-59 ml/min Rheumatoid arthritis Osteoporosis Afib Essential (primary) hypertension Shoulder pain with history of repair of rotator cuff Sjogren syndrome Home Medications ?Medication ?Instructions ?Recorded ?Last Taken ?Type cholecalciferol (vitamin D3) 125 125 mcg PO QODAY supplement 09/07/23 03/09/24 10:00 History mcg (5,000 unit) capsule gabapentin 300 mg capsule 300 mg PO BID Nerve pain 09/07/23 03/09/24 10:00 History mecobalamin (vitamin B12) 1,000 1,000 mcg PO QMWF supplement 09/07/23 03/09/24 10:00 History mcg chewable tablet hydroxychloroquine 200 mg tablet 200 mg PO DAILY Immunosupressive 01/27/24 03/09/24 10:00 History acetaminophen 500 mg tablet 1,000 mg (2 x 500 mg) PO Q6H PRN 04/01/24 Unknown Rx PRN Pain Score 1-10 #0 tabs amlodipine 5 mg tablet 5 mg PO DAILY 30 days #30 tabs 04/01/24 Unknown Rx pantoprazole 40 mg tablet,delayed 40 mg PO DAILY 30 days #30 tabs 04/01/24 Unknown Rx release atorvastatin 40 mg tablet 40 mg PO DAILY cholesterol #30 tabs 05/16/24 Unknown Rx apixaban 5 mg tablet (Eliquis) 5 mg PO BID 07/06/24 07/09/24 History Allergy/AdvReac Type Severity Reaction Status Date / Time ciprofloxacin (From Cipro) Allergy Intermediate NEEDS Verified 07/12/24 12:43 FOLLOW-UP duloxetine Allergy Intermediate NEEDS Verified 07/12/24 12:43 FOLLOW-UP ibuprofen Allergy Intermediate NEEDS Verified 07/12/24 12:43 FOLLOW-UP meloxicam Allergy Intermediate NEEDS Verified 07/12/24 12:43 FOLLOW-UP Penicillins Allergy Intermediate NEEDS Verified 07/12/24 12:43 FOLLOW-UP sulfamethoxazole (From Allergy Intermediate NEEDS Verified 07/12/24 12:43 Septra) FOLLOW-UP trimethoprim (From Septra) Allergy Intermediate NEEDS Verified 07/12/24 12:43 FOLLOW-UP Surgical History History of repair of rectocele History of bladder repair surgery History of ERCP History of appendectomy History of cardiac radiofrequency ablation (RFA) S/P hernia repair Social History household members: family housing: house Smoking Status: Never smoker alcohol intake: never substance use type: does not use Review of Systems (Anesthesia) ROS Narrative System reviewed and no additional complaints, except as documented.
--- NOTE | 2024-07-12 13:30 | FLU_PTH ---
PATIENT: JONNA GIRON LOC: EN U#:[id number] AGE/SX: 88/F ROOM: RE07/12/[address]: Dr. Joe Patterson DO : 1935 BED: DIS: 07/12/2024 SPEC #: [id number] RECD: 07/12/24 14:51 STATUS: ULISES RESabas #: [id number] WARD: 07/12/24 13:[address]: Joe Patterson DEPT: CYTOLOGY RECD BY: Bossman Orellana ENTERED: 07/13/24 09:41 SP TYPE: Fluid OTHR DR: Keke Suarez, RESERVATION CLERK-C Tissues: A - Biliary tract, NOS B - Pancreatic duct, NOS C - Biliary tract, NOS D - Biliary tract, NOS Procedures: Special Stain Group II Surgery Specimen Level IV Surgery Specimen Level V Cytospin Fluid HEADER OPERATION: ERCP with stent removal PRE-OP DIAGNOSIS: History of biliary stent insertion, choledocholithiasis TISSUE SUBMITTED: A- Biliary stent for cytology, B- Pancreatic stent for cytology, C- Biliary stricture brushings, D- Biliary stricture brush head DIAGNOSIS CYTOLOGY A. Biliary stent fluid: * No malignant cells are identified B. Pancreatic stent fluid: * No malignant cells are identified C. Biliary stricture brushing: * Rare atypical cells, favor reactive D. Biliary stricture brush head: * No malignant cells are identified CYTOLOGY STUDY Slides are reviewed. CYTOLOGY GROSS A. Received is 8cm long, sylvester stent with 0.2 ml of thick yellow material labeled with the patient's name and and designated per the requisition as Biliary stent. Submitted for cytology and cell block preparation. B. Received is 8cm long, green stent with 0.2 ml of thick yellow material labeled with the patient's name and and designated per the requisition as Pancreatic stent. Submitted for cytology and cell block preparation. C. Received are 3 smears labeled with the patient's name and designated per the requisition as Biliary stricture brushings. Submitted for staining. D. Received is a brush tip with 0.5 ml of light-red fluid with particles labeled with the patient's name and and designated per the requisition as Biliary stricture brush head. Submitted for cytology and cell block preparation. CPT: 75683n7,76337
--- NOTE | 2024-07-12 14:30 | RAD_ITS ---
PROCEDURE: ERCP BILIARY/PANCREAS; O.R. FLUORO FOR C-ARM 07/12/2024 REASON FOR EXAM: ERCP TECHNIQUE: Intraoperative fluoroscopy was performed for ERCP. 9 fluoroscopic images were also obtained. RAD/O.R. Fluoro for C-Arm IMPRESSION: Intraoperative fluoroscopy was performed for ERCP. 9 fluoroscopic images were also obtained. Reading Location: [id number]
--- NOTE | 2024-07-12 14:30 | RAD_ITS ---
PROCEDURE: ERCP BILIARY/PANCREAS; O.R. FLUORO FOR C-ARM 07/12/2024 REASON FOR EXAM: ERCP TECHNIQUE: Intraoperative fluoroscopy was performed for ERCP. 9 fluoroscopic images were also obtained. RAD/ERCP Biliary/Pancreas IMPRESSION: Intraoperative fluoroscopy was performed for ERCP. 9 fluoroscopic images were also obtained. Reading Location: [id number]
--- NOTE | 2024-07-12 14:39 | OP.ERCP_ITS ---
Patient Name: Mckenna Evans Procedure Date: 07/12/2024 1:50 PM Date of : 1935 Age: 88 Procedure: ERCP Indications: Bile duct stone(s), Elevated liver enzymes, Acute pancreatitis, Biliary stent removal, Pancreatic stent removal Providers: Joe Patterson DO Referring MD: Kari Bolivar Medicines: Monitored Anesthesia Care Patient Profile: This is an 88 year old female. Refer to note in patient chart for documentation of history and physical. Patient has symptoms of acute dyspepsia and acute jaundice. Complications: No immediate complications. Procedure: Pre-Anesthesia Assessment: - Prior to the procedure, a History and Physical was performed, and patient medications and allergies were reviewed. The patient is competent. The risks and benefits of the procedure and the sedation options and risks were discussed with the patient. All questions were answered and informed consent was obtained. Patient identification and proposed procedure were verified by the physician in the pre-procedure area. Mental Status Examination: alert and oriented. Airway Examination: normal oropharyngeal airway and neck mobility. Respiratory Examination: clear to auscultation. CV Examination: normal. Prophylactic Antibiotics: The patient does not require prophylactic antibiotics. Prior Anticoagulants: The patient has taken no anticoagulant or antiplatelet agents except for NSAID medication. ASA Grade Assessment: II - A patient with mild systemic disease. After reviewing the risks and benefits, the patient was deemed in satisfactory condition to undergo the procedure. The anesthesia plan was to use monitored anesthesia care (MAC). Immediately prior to administration of medications, the patient was re-assessed for adequacy to receive sedatives. The heart rate, respiratory rate, oxygen saturations, blood pressure, adequacy of pulmonary ventilation, and response to care were monitored throughout the procedure. The physical status of the patient was re-assessed after the procedure. After obtaining informed consent, the scope was passed under direct vision. Throughout the procedure, the patient's blood pressure, pulse, and oxygen saturations were monitored continuously. The Duodenoscope was introduced through the mouth, and advanced to the duodenum and used to inject contrast into the bile duct and ventral pancreatic duct. The ERCP was accomplished without difficulty. The patient tolerated the procedure well. Scope In: 2:13:50 PM Scope Out: 2:30:43 PM Total Procedure Duration Time 0 hours 16 minutes 53 seconds Findings: The shuttle bus driver film was normal. The esophagus was successfully intubated under direct vision. The scope was advanced to a normal major papilla in the descending duodenum without detailed examination of the pharynx, larynx and associated structures, and upper GI tract. The upper GI tract was grossly normal. The ventral pancreatic duct was deeply cannulated with the short-nosed traction sphincterotome. Contrast was injected. I personally interpreted the bile duct and pancreatic duct images. Ductal flow of contrast was adequate. Image quality was adequate. Contrast extended to the main bile duct. Contrast extended to the bifurcation. Contrast extended to the entire biliary tree. Contrast extended to the pancreatic duct. Opacification of the entire pancreatic ductal system was successful. The maximum diameter of the ducts was 3 mm. The entire opacified area was normal. A long 0.025 inch Jagwire was passed into the ventral pancreatic duct. A 5 mm ventral pancreatic sphincterotomy was made with a traction (standard) sphincterotome using ERBE electrocautery. There was no post-sphincterotomy bleeding. To find object(s) the ventral pancreatic duct was swept with a 6 mm balloon starting at the pancreatic duct in the body of the pancreas. Nothing was found. One stent was removed from the pancreatic duct using a snare and sent for cytology. The stent was found to be occluded via the water column test. One stent was removed from the common bile duct using a snare and sent for cytology. The stent was found to be partially occluded via the water column test. The bile duct was deeply cannulated with the short-nosed traction sphincterotome. Contrast was injected. Opacification of the entire opacified area and entire biliary tree was successful. The maximum diameter of the ducts was 10 mm. The lower third of the main bile duct contained a single localized stenosis 6 mm in length. The entire opacified area was moderately dilated, secondary to a stricture. The largest diameter was 11mm. A cholecystectomy had been performed. A straight Roadrunner wire was passed into the biliary tree. A 5 mm biliary sphincterotomy was made with a traction (standard) sphincterotome using ERBE electrocautery. There was no post-sphincterotomy bleeding. The biliary tree was swept with a 12 mm balloon starting at the upper third of the main bile duct, middle third of the main bile duct, bifurcation, left intrahepatic duct(s), left main hepatic duct and right main hepatic duct. Sludge was swept from the duct. All stones were removed. Cells for cytology were obtained by brushing in the lower third of the main bile duct. 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 The stricture was benign appearing. - The biliary system were moderately dilated, secondary to a stricture. - The patient has had a cholecystectomy. - Choledocholithiasis was found. Complete removal was accomplished by biliary sphincterotomy and balloon extraction. - A pancreatic sphincterotomy was performed. - The ventral pancreatic duct was swept and nothing was found. - One stent was removed from the pancreatic duct. - One stent was removed from the common bile duct. - A biliary sphincterotomy was performed. - The biliary tree was swept. - Cells for cytology obtained in the lower third of the main duct. Procedure Code(s): --- Professional --- 03339, Endoscopic retrograde cholangiopancreatography (ERCP); with removal of foreign body(s) or stent(s) from biliary/pancreatic duct(s) 37031, Endoscopic retrograde cholangiopancreatography (ERCP); with removal of calculi/debris from biliary/pancreatic duct(s) 46675, Endoscopic retrograde cholangiopancreatography (ERCP); with sphincterotomy/papillotomy 39834, Endoscopic retrograde cholangiopancreatography (ERCP); with sphincterotomy/papillotomy 27057, 26, Combined endoscopic catheterization of the biliary and pancreatic ductal systems, radiological supervision and interpretation CPT copyright 2021 [employer]. All rights reserved. The codes documented in this report are preliminary and upon produce field merchandiser review may be revised to meet current compliance requirements. Joe Patterson DO 07/12/2024 2:39:37 PM This report has been signed electronically. Number of Addenda: 0 Note Initiated On: 07/12/2024 1:50 PM
--- NOTE | 2024-07-12 14:40 | OP.CCLET_ITS ---
07/12/2024 Kari Bolivar Re : ERCP procedure for Mckenna Evans Dear Erick This procedure was performed on Friday, July 12, 2024. 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 The stricture was benign appearing. - The biliary system were moderately dilated, secondary to a stricture. - The patient has had a cholecystectomy. - Choledocholithiasis was found. Complete removal was accomplished by biliary sphincterotomy and balloon extraction. - A pancreatic sphincterotomy was performed. - The ventral pancreatic duct was swept and nothing was found. - One stent was removed from the pancreatic duct. - One stent was removed from the common bile duct. - A biliary sphincterotomy was performed. - The biliary tree was swept. - Cells for cytology obtained in the lower third of the main duct. Recommendations : My findings are described in the full procedure note, which is enclosed. If I can be of further assistance, please feel free to contact me at . Sincerely, Joe Patterson, 07/12/2024 2:39:37 PM This report has been signed electronically.
--- NOTE | 2024-07-12 14:46 | PCM.POST.ANE ---
Anesthesia: Postop Eval I Current Vital Signs Temperature: 97 F Pulse Rate: 88 Blood Pressure: 108/58 Respiratory Rate: 14 Pulse Ox: 98 Oxygen Delivery Method: Room Air Assessment Airway patent: Yes Spontaneous unlabored respirations: Yes Mental status: Awake and Calm nausea: No Vomiting: No Anesthesia Complication: No Fluid Hydration Crystalloid volume administer (ml): 500 Total IV fluid infused: 500 Progress Note Anesthesia document: Postop Eval 1 completed: Yes
--- NOTE | 2024-07-12 18:20 | PCM.POSTANE2 ---
Anesthesia Postop Eval I Sum Postop Eval Completion status Anesthesia document: Postop Eval 1 completed: Yes Anesthesia Postop Eval I Summary Anesthesia Postop Eval I Summary: Anesthesia Postop Eval I: Assessment Summary Airway patent Yes 07/12/24 14:47 [email or web address] Spontaneous unlabored Yes 07/12/24 14:47 [email or web address] respirations Mental status Awake,Calm 07/12/24 14:47 [email or web address] nausea No 07/12/24 14:47 [email or web address] Vomiting No 07/12/24 14:47 [email or web address] Anesthesia Postop Eval I: Fluid Summary Crystalloid volume administer 500 07/12/24 14:47 [email or web address] (ml) Colloids volume administered ( ml) Blood Product volume administered (ml) Total IV fluid infused 500 07/12/24 14:47 [email or web address] Anesthesia Postop Eval I: Summary Notes Anesthesia Complication No 07/12/24 14:47 [email or web address] Anesthesia Complication Comment: Post-operative progress note Anesthesia: Postop Eval II Evaluation Mental status: Awake and Calm Pain Level: 1 nausea: No Vomiting: No Complications Anesthesia Complication: No
== END 2024-07-12 15:33 | disposition home or self-care (01) ==
LOC: EN 12:23 → AC 12:24
PROVIDERS: PCP Nurse Practitioner Family; Referring Provider Nurse Practitioner Family; Visit Provider Internal Medicine Gastroenterology
PROC: (CPT 43260; principal; 2024-07-12 13:10)
DX: K92.2 Gastrointestinal hemorrhage, unspecified (principal); M06.9 Rheumatoid arthritis, unspecified; I48.91 Unspecified atrial fibrillation; N18.32 Chronic kidney disease, stage 3b; K85.90 Acute pancreatitis without necrosis or infection, unspecified; Z79.01 Long term (current) use of anticoagulants; E78.00 Pure hypercholesterolemia, unspecified; I12.9 Hypertensive chronic kidney disease with stage 1 through stage 4 chronic kidney disease, or unspecified chronic kidney disease; K80.51 Calculus of bile duct without cholangitis or cholecystitis with obstruction; Z86.73 Personal history of transient ischemic attack (TIA), and cerebral infarction without residual deficits; Z79.899 Other long term (current) drug therapy; Z90.49 Acquired absence of other specified parts of digestive tract; K55.039 Acute (reversible) ischemia of large intestine, extent unspecified
CPT/HCPCS: 43275; 43262; 43264; 74330; 76000; 88108; 88305; 88307; 88313; J2405

== ENCOUNTER → 2024-07-28 | Outpatient (CLI) | payer MEDICARE, SELFPAY ==
[2024-07-28 11:58] LABS: Hemoglobin 11.7 g/dL (12.0-15.0); Mean Corp Hgb Conc 32.5 g/dL (32-36); Mean Corpuscular Hgb 31.5 pg (27.0-32.0); Mean Corpuscular Volume 96.8 fL (81-99); Mean Platelet Vol. 8.4 fl (6.2-12.0); Platelet Count 316 K/mm3 (150-450); RBC Distribution Width CV 12.8 % (11.6-14.6); RBC Distribution Width SD 45.5 fl (35.1-43.9); Red Blood Count 3.72 M/mm3 (4.2-5.4); White Blood Count 5.7 K/mm3 (4.4-11.0)
[2024-07-28 12:22] LABS: Phosphorus 3.9 mg/dL (2.7-4.5)
[2024-07-28 12:32] LABS: Albumin, Serum 3.8 g/dL (3.4-4.8); Anion Gap 10 (5-15); BUN 25 mg/dL (4-19); BUN/Creat Ratio 26.6 RATIO (10-20); Calcium,Total 9.1 mg/dL (7.6-11.0); Carbon Dioxide 24.6 mmol/L (21.0-32.0); Chloride 105 mmol/L (98-108); Creatinine, Serum 0.92 mg/dL (0.70-1.20); EST Glomerular Filtration Rate 60 (>60); Glucose 91 mg/dL (70-99); Potassium 4.5 mmol/L (3.3-5.1); Sodium Level 140 mmol/L (133-145)
== END | disposition home or self-care (01) ==
LOC: LAB 11:17
PROVIDERS: PCP Nurse Practitioner Family; Referring Provider Internal Medicine Nephrology; Visit Provider Internal Medicine Nephrology
DX: N18.32 Chronic kidney disease, stage 3b (principal)
CPT/HCPCS: 36415; 80069; 85027

== ENCOUNTER 2024-08-27 14:23 | Emergency (ER) | payer MEDICARE, SELFPAY ==
[2024-08-27 14:24] VITALS: BP 118/68; PULSE 112; RESP 18; TEMP 36.8; O2SAT 99
[2024-08-27 14:32] VITALS: BMI 23.6
--- NOTE | 2024-08-27 14:57 | CT_ITS ---
PROCEDURE: BRAIN/HEAD WITHOUT CONTRAST 08/27/2024 REASON FOR EXAM: HEAD INJURY TECHNIQUE: BRAIN/HEAD WITHOUT CONTRAST Coronal and Sagittal reconstruction series were provided. One or more dose reduction techniques were used (e.g., Automated exposure control, adjustment of the mA and/or kV according to patient size, use of iterative reconstruction technique. RADIATION DOSE SUMMARY: CTDlvol: 45 mGy DLP: 712 mGycm COMPARISON: None FINDINGS: Brain: No acute intracranial hemorrhage, mass effect, or midline shift. Low density in the periventricular white matter suggests mild chronic small vessel ischemic changes. CSF Spaces: Moderate generalized cerebral atrophy Sinuses/Mastoids: Small right mastoid effusion. Sinuses are predominantly clear Bones: No displaced fracture. No significant scalp hematoma. Atherosclerotic calcification of the intracranial vasculature. Status post bilateral cataract extraction. Degenerative changes of the TMJs. CT/Brain/Head without Contrast IMPRESSION: 1. No acute intracranial abnormality. Senescent changes. 2. Small right mastoid effusion. Reading Location: [facility]
--- NOTE | 2024-08-27 14:57 | CT_ITS ---
PROCEDURE: CHEST WITHOUT CONTRAST 08/27/2024 REASON FOR EXAM: FALL, INJURY TECHNIQUE: Chest CT without contrast. Coronal and Sagittal reconstruction series were provided. One or more dose reduction techniques were used (e.g., Automated exposure control, adjustment of the mA and/or kV according to patient size, use of iterative reconstruction technique RADIATION DOSE SUMMARY: CTDlvol: 6.8 mGy DLP: 244 mGycm COMPARISON: Chest radiograph on 02/29/2024, CT abdomen and pelvis 02/29/2024 FINDINGS: Lymph nodes: There are few subcentimeter mediastinal nodes. Heart and Vasculature: Cardiomegaly with moderate to severe coronary calcification. Aortic atherosclerosis, without aneurysm. Normal size main pulmonary artery. Lungs and Airways: Central airways are predominantly clear. Bibasilar atelectasis. No suspicious pulmonary nodule. Pleura: No effusion or pneumothorax Upper Abdomen: Hiatal hernia. Splenic calcifications suggestive of prior granulomatous disease. Calcification near the splenic hilum measuring 8 mm may represent a splenic artery aneurysm (series 11 image 93) or artifact. Aortic atherosclerosis. Left renal cyst. Bones: Right shoulder arthroplasty. Degenerative changes of the thoracic spine. CT/Chest without Contrast IMPRESSION: 1. No acute cardiopulmonary abnormality. 2. Cardiomegaly with moderate to severe coronary calcification. Reading Location: [facility]
--- NOTE | 2024-08-27 14:57 | CT_ITS ---
PROCEDURE: SINUS/FACIAL BONE 08/27/2024 REASON FOR EXAM: INJURY TECHNIQUE: SINUS/FACIAL BONE Coronal and Sagittal reconstruction series were provided. One or more dose reduction techniques were used (e.g., Automated exposure control, adjustment of the mA and/or kV according to patient size, use of iterative reconstruction technique). RADIATION DOSE SUMMARY: CTDlvol: 12.5 mGy DLP: 204 mGycm FINDINGS: Facial bones: No displaced fracture. Paranasal sinuses: Mild mucosal thickening in the ethmoid air cells. Predominantly clear elsewhere. Nasopharynx: Slight rightward deviation of the posterior nasal septum. Mastoid air cells: Small right mastoid effusion. Orbits: Status post bilateral cataract extraction. Salivary glands: Unremarkable. Degenerative changes of the TMJs in cervical spine. Carotid atherosclerosis. CT/Sinus/Facial Bone IMPRESSION: No displaced facial fracture. Reading Location: [id number]
--- NOTE | 2024-08-27 14:57 | CT_ITS ---
PROCEDURE: SPINE CERVICAL WITHOUT CONTRAS 08/27/2024 REASON FOR EXAM: NECK INJURY TECHNIQUE: SPINE CERVICAL WITHOUT CONTRAS Coronal and Sagittal reconstruction series were provided. One or more dose reduction techniques were used (e.g., Automated exposure control, adjustment of the mA and/or kV according to patient size, use of iterative reconstruction technique. RADIATION DOSE SUMMARY: CTDlvol: 29.4 mGy DLP: 511 mGycm COMPARISON: CTA head and neck 02/22/2024 FINDINGS: Cervical vertebral body heights are maintained. There is reversal of the normal cervical lordosis with anterolisthesis from C3 through C5, and retrolisthesis of C5 on C6, unchanged. No displaced fracture. Multilevel disc height loss with posterior disc osteophyte formation, uncovertebral and facet arthropathy. These changes result in severe osseous neural foraminal narrowing on the right at C5-6 and at least mild osseous spinal canal narrowing at this level. Calcification surround the odontoid process. Carotid calcifications. Soft tissues of the neck are otherwise unremarkable. CT/Spine Cervical without Contras IMPRESSION: No displaced cervical spine fracture. Multilevel degenerative changes. Reading Location: [id number]
[2024-08-27] MEDS: fentaNYL 100 MCG/2 ML Ampul 25 MCG IV (15:24)
[2024-08-27 15:25] VITALS: BP 144/94; PULSE 113; RESP 17; O2SAT 100
[2024-08-27] MEDS: 0.9% Normal Saline (500mL Bag) 500 ML 999 ML IV (15:27)
[2024-08-27 15:37] LABS: Hematocrit 34.5 % (37-47); Hemoglobin 11.6 g/dL (12.0-15.0); Immature Granulocytes Count 0.020 X10^3/uL (0.0-0.0); Mean Corp Hgb Conc 33.6 g/dL (32-36); Mean Corpuscular Volume 93.5 fL (81-99); Mean Platelet Vol. 8.8 fl (6.2-12.0); NRBC Flagged by Analyzer 0 % (0-5); Platelet Count 270 K/mm3 (150-450); RBC Distribution Width CV 13.3 % (11.6-14.6); RBC Distribution Width SD 45.3 fl (35.1-43.9); Red Blood Count 3.69 M/mm3 (4.2-5.4); White Blood Count 7.5 K/mm3 (4.4-11.0)
--- OUTSIDE RECORDS SUMMARY | 2024-08-27 15:38 | XMS RPT_ITS | CCD ---
Author Organization [facility] Care Team Providers Care Waiter/Waitress First Class Name Role Phone Unavailable Primary Care Provider Unavailabl e Erick THIRD LOADER-C, Keke Primary Care Provider Michael THIRD LOADER-C, Betty Attending Provider Michael THIRD LOADER-C, Betty Referring Provider Erick THIRD LOADER-C, Keke Referring Provider Katharine Strauss Attending Provider Katharine Strauss Referring Provider Dr. Eyad Cuellar MD Emergency Provider [phone] Thee KHAN, Dr. Duncan Admit Provider Dr. Perla Kingston MD Other Provider Belkis KHAN, Dr. Clotilde Edward Attending Provider Belkis KHAN, Dr. Clotilde Edward Other Provider Dr. Colt Rodriguez MD Attending Provider Erick THIRD LOADER-C, Keke Attending Provider Johnson Retana MD Emergency Provider Dr. Elsy Zafar DO Admit Provider Dr. Elsy Zafar DO Other Provider Robby KHAN, Dr. Hylton Attending Provider Neel Longoria MD Other Provider Unavailable Dr. Ana Luisa Edmonds MD Other Provider [phone] Bella Tejeda MD Other Provider Unavailable Dr. Verónica Jordan DO Other Provider [phone] Disha KHAN, Dr. Eid Other Provider [phone] Zuly KHAN, Dr. Kowalski Other Provider Lexie KHAN, Dr. Yousif Other Provider Thalia KHAN, Dr. Nava Other Provider [phone] Uriah KHAN, Dr. Aparicio Other Provider Moises KHAN, Dr. Flores Other Provider [phone] Shree KHAN, Kerrie Other Provider Cici KHAN, Dr. Bishop Other Provider Quinton KHAN, Dr. Haro Other Provider Marek KHAN, Dr. Carter Other Provider Mike KHAN, Dr. Rickie Peterson Other Provider Akash KHAN, Dr. Crane Other Provider Scar KHAN, Dr. Hassan Other Provider Dung KHAN, Dr. Najera Other Provider Andrade KHAN, Dr. Navarro Other Provider Unavailable La Nena KHAN, Yousetanya Other Provider Unavailable Andrade WALLER, Dr. Roach Other Provider Dr. Elsy Zafar DO Attending Provider [phone] Robby KHAN, Dr. Hylton Other Provider [phone] Michael KAHN, Dr. Gregory Referring Provider [phone] KHAN, Dr. Segundo Camara Admit Provider Rd KHAN, Dr. Segundo Camara Attending Provider Dr. Vasile Hernández DO Emergency Provider Danyell KHAN, Dr. Monge Admit Provider Dr. Saleem Child MD Attending Provider Dr. Saleem Child MD Other Provider Danyell KHAN, Dr. Monge Referring Provider Yesenia WALLER Dr. Joe Attending Provider Chantell WALLER, Dr. Guzmán Other Provider 1([facility])[phone] Yesenia WALLER, Dr. Diaz Referring Provider Erick THIRD LOADER-C, Keke Primary Care Provider 1([facility])[phone] Michael THIRD LOADER-CBetty Attending Provider 1([facility])[phone] Erick THIRD LOADER-C, Keke Primary Care Provider 1([facility])[phone] KHAN, Dr. Segundo Camara Admit Provider Rd KHAN, Dr. Segundo Camara Attending Provider 1([facility])[phone] Chantell WALLER, Dr. Guzmán Other Provider 1([facility])[phone] Erick THIRD LOADER-C, Keke Referring Provider 1([facility])[phone] Yesenia WALLER, Dr. Diaz Attending Provider Yesenia WALLER, Dr. Diaz Referring Provider Michael THIRD LOADER-C, Betty Attending Provider [phone] Erick THIRD LOADER-C, Keke Attending Provider Yesenia WALLER, Dr. Diaz Other Provider [phone] Andrade WALLER, Dr. Roach Attending Provider Dr. Marley Zafar DO Referring Provider Erick, Keke Primary Care Unavailable Betty Rodriguez Referring Unavailable Betty Rodriguez Attending Unavailable ErickKeke Attending Unavailable Erick, Keke Referring Unavailable Erick, Keke Primary Care Unavailable Erick, Keke Primary Care Unavailable Betty Rodriguez Referring Unavailable Betty Rodriguez Attending Unavailable Elsy Zafar Attending Unavailable Child, Saleem Consulting Unavailable Child, Saleem Referring Unavailable Child, Saleem Admitting Unavailable Erick, Keke Primary Care Unavailable Koram, Clotilde Cheyanne Consulting Unavailable Erick, Keke Primary Care Unavailable Kingston, Perla Admitting Unavailable Kingston, Perla Consulting Unavailable Koram, Clotilde Cheyanne Attending Unavailable Erick, Keek Primary Care Unavailable Koram, Clotilde Cheyanne Attending Unavailable Kingston, Perla Admitting Unavailable Kingston, Perla Consulting Unavailable Koram, Clotilde Cheyanne Consulting Unavailable Erick, Keke Primary Care Unavailable Child, Saleem Referring Unavailable Koram, Clotilde Cheyanne Attending Unavailable Child, Saleem Consulting Unavailable Child, Saleem Admitting Unavailable Koram, Clotilde Cheyanne Consulting Unavailable Erick, Keke Referring Unavailable Erick, Keke Primary Care Unavailable Friend, Joe Attending Unavailable Erick, Keke Referring Unavailable Erick, Keke Primary Care Unavailable Katharine Strauss Attending Unavail able Elsy Zaafr Attending Unavailable Elsy Zafar Consulting Unavailable Friend, Joe Attending Unavailable Erick, Keke Primary Care Unavailable VellankiHuangma Attending Unavailable Vellanki, Inez Referring Unavailable Erick, Keke Referring Unavailable Erick, Keke Attending Unavailable Erick, Keke Primary Care Unavailable Erick, Keke Attending Unavailable Erick, Keke Referring Unavailable Erick, Keke Primary Care Unavailable Erick, Keke Primary Care Unavailable Katharine Strauss Referring Unavail able Katharine Strauss Attending Unavail able Erick, Keke Primary Care Unavailable Katharine Strauss Referring Unavail able Katharine Strauss Attending Unavail able Erick, Keke Referring Unavailable Erick, Keke Primary Care Unavailable Katharine Strauss Attending Unavail able Erick, Keke Primary Care Unavailable Rd, Segundo Chi Admitting Unavailable Rosalina Abduls Consulting Unavailable Rd, Segundo Chi Attending Unavailable Erikc, Keke Primary Care Unavailable Elsy Zafar Admitting Unavailable Elsy Zafar Consulting Unavailable Warner Bustamante Attending Unavailable Neel Longoria Consulting Unavailable Adeli, Amir Consulting Unavailable Hinduja, Bella Consulting Unavailable Julian, Verónica Consulting Unavailable Zha, Ragini Consulting Unavailable Zuly, Dex Consulting Unavailable Lexie, Nica Consulting Unavailable Bittar, Elijah Consulting Unavailable Markus Kruse Consulting Unavailable Mark De Leon Consulting Unavailable Kerrie Swann Consulting Unavailable Dario Bolanos Consulting Unavailable Estrellita Alcantara Consulting Unavailable Emma Jara Consulting Unavailable Rickie Mckeon Consulting UnavailRoyce Freeman Consulting Unavailable Mo Abbott Consulting Unavailable Reinaldo Razo Consulting Unavailable Melanie Zafar Consulting Unavailable Storm Deutsch Consulting Unavailable Marley Zafar Consulting Unavailable Robby, Warner Consulting Unavailable Erick, Keke Primary Care Unavailable Andrade, Elsy Attending Unavailable Andrade, Elsy Admitting Unavailable Andrade Elsy Consulting Unavailable Erick, Keke Referring Unavailable Erick, Keke Primary Care Unavailable Michael, Fallon Attending Unavailable Erick, Keke Referring Unavailable Erick, Keke Primary Care Unavailable Friend, Joe Attending Unavailable Erick, Keke Referring Unavailable Erick, Keke Primary Care Unavailable Katharine Strauss Attending Unavail able Erick, Keke Primary Care Unavailable Michael, Fallon Attending Unavailable Michael, Colt Referring Unavailable Erick, Keke Primary Care Unavailable Michael, Colt Attending Unavailable Erick, Keke Primary Care Unavailable Katharine Strauss Referring Unavail able Michael, Colt Attending Unavailable Erick, Keke Primary Care Unavailable Betty Rodriguez Attending Unavailable Erick, Keke Primary Care Unavailable Saleem Child Consulting Unavailable Danyell, Saleem Attending Unavailable Danyell, Saleem Referring Unavailable Danyell, Saleem Admitting Unavailable Perla Kingston Attending Unavailable Rd, Segundo Chi Admitting Unavailable Rd Segundo Chi Attending Unavailable Erick, Keke Primary Care Unavailable Erick, Keke Primary Care Unavailable Andrade, Elsy Admitting Unavailable Andrade Elsy Consulting Unavailable Warner Bustamante Attending Unavailable Neel Longoria Consulting Unavailable Adeli, Amir Consulting Unavailable Hinduja, Bella Consulting Unavailable Julian Verónica Consulting Unavailable Zha, Ragini Consulting Unavailable Zuly, Dex Consulting Unavailable Lexie, Nica Consulting Unavailable Elijah Vásquez Consulting Unavailable Markus Kruse Consulting Unavailable Mark De Leon Consulting Unavailable Kerrie Swann Consulting Unavailable Dario Bolanos Consulting Unavailable Estrellita Alcantara Consulting Unavailable Ridjose luis, Emma Consulting Unavailable Mike, Mhd Nicholas Consulting UnavailRoyce Freeman Consulting Unavailable Abbott, Rami Consulting Unavailable Dung, Reinaldo Consulting Unavailable Melanie Zafar Consulting Unavailable Storm Deutsch Consulting Unavailable Marley Zafar Consulting Unavailable Erick, Keke Attending Unavailable Erick, Keke Referring Unavailable Erick, Keke Primary Care Unavailable Erick, Keke Primary Care Unavailable Marley Zafar Attending Unavailable Erick, Keke Referring Unavailable Erick, Keke Primary Care Unavailable Friend, Joe Attending Unavailable Friend, Joe Consulting Unavailable Erick, Keke Referring Unavailable Erick, Keke Primary Care Unavailable Betty Rodriguez Attending Unavailable Erick, Keke Primary Care Unavailable Marley Zafar Attending Unavailable Marley Zafar Referring Unavailable ErickKeke Attending Unavailable Erick, Keke Primary Care Unavailable Erick, Keke Primary Care Unavailable FriendJoe Attending Unavailable FriendJoe Referring Unavailable Betty Rodriguez Referring Unavailable Betty Rodriguez Attending Unavailable Erick, Keke Primary Care Unavailable Allergies Allergy Classification Reported Allergen(s) Allergy Type Date of Onset Reaction(s) Facility (5 sources) Ciprofloxacin Drug Allergy 12-14-19 14 Rash, Anaphylaxis [facility] (1 source) Penicillins Drug Allergy 12-14-19 14 Other: See Comments [facility] (1 source) Sulfamethoxazole / Trimethoprim Drug Allergy 12-14-19 14 Other: See Comments [facility] (4 sources) DULoxetine Drug Allergy 02-21-19 NEEDS FOLLOW-UP [facility] (4 sources) Ibuprofen Drug Allergy 02-21-19 25 NEEDS FOLLOW-UP [facility] (4 sources) meloxicam Drug Allergy 02-21-19 NEEDS FOLLOW-UP [facility] (4 sources) Penicillins Allergy to substance 02-21-19 NEEDS FOLLOW-UP [facility] (4 sources) Sulfamethoxazole Drug Allergy 02-21-19 NEEDS FOLLOW-UP [facility] (4 sources) Trimethoprim Drug Allergy 02-21-19 NEEDS FOLLOW-UP [facility] (1 source) Ciprofloxacin Drug Allergy 07-13-19 [facility] (1 source) DULoxetine Drug Allergy 07-13-19 [facility] (1 source) Ibuprofen Drug Allergy 07-13-19 25 [facility] (1 source) meloxicam Drug Allergy 07-13-19 25 [facility] (1 source) Penicillins Drug allergy (disorder) 07-13-19 [facility] (1 source) Sulfamethoxazole Drug Allergy 07-13-19 [facility] (1 source) Trimethoprim Drug Allergy 07-13-19 [facility] Medications Current Medications Medication Drug Class(es) Dates Sig (Normalized) Sig (Original) acetaminophen 500 mg oral tablet (8 sources) Start: 04-01-2024 take 2 tablets by mouth every six hours as needed for pain Acetaminophen 500 mg Tablet Active 1000 mg PO EVERY 6 HOURS NEEDED as needed for Pain Score 1-10 0 April 01, 2024 1:00am Start: 02-25-2024 End: 04-01-2024 take 1-10 tablets by mouth every four hours as needed for pain Acetaminophen 325 mg Tablet Discontinued 650 mg PO EVERY 4 HOURS NEEDED as needed for Pain 1-10 Or Fever>99.6 0 February 25, 2024 1:00am April 01, 2024 2:53pm amLODIPine 5 mg oral tablet (8 sources) Dihydropyridine Calcium Channel Mare Start: 03-09-2024 End: 04-01-2024 take 1 tablet by mouth once daily Amlodipine 5 mg Tablet Active 5 mg PO DAILY April 01, 2024 1:00am apixaban 5 mg oral tablet (20 sources) Factor Xa Inhibitor Start: 07-06-2024 take 1 tablet by mouth twice daily Apixaban (Eliquis) 5 mg Tablet Active 5 mg PO TWICE A DAY July 06, 2024 12:00am Start: 02-25-2024 End: 07-06-2024 take 2.5 mg by mouth twice daily Apixaban (Eliquis) 5 mg Tablet Discontinued 2.5 mg PO TWICE A DAY April 01, 2024 1:00am July 06, 2024 3:30pm Start: 02-25-2024 End: 04-01-2024 Start: 10-21-2023 End: 02-15-2024 take 1 tablet by mouth twice daily Apixaban (Eliquis) 2.5 mg tablet Discontinued 2.5 mg PO TWICE A DAY December 16, 2023 10:35am February 15, 2024 4:49pm atorvastatin 40 mg oral tablet (7 sources) HMG-CoA Reductase Inhibitor Start: 09-07-2023 End: 05-16-2024 take 1 tablet by mouth once daily Atorvastatin 40 mg tablet Active 40 mg PO DAILY May 16, 2024 3:03pm Calcium Carbonate (1 source) CALCIUM CARBONAT E (CALCIUM 500 ORAL) Take by mouth. 0 Active cholecalciferol 0.125 mg oral capsule (4 sources) Vitamin D Start: 09-07-2023 take 1 capsule by mouth every other day Cholecalciferol (Vitamin D3) 125 mcg (5,000 unit) capsule Active 125 ug PO EVERY OTHER DAY September 07, 2023 12:00am cycloSPORINE 0.5 mg/ml ophthalmic suspension (1 source) Calcineurin Inhibitor Immunosuppressant Start: 07-15-2013 take 1 drop(s) into the eye(s) twice daily cycloSPORINE 0.05 % ophthalmic emulsion Indications: Sjogren's syndrome (HCC) Use 1 Drop in both eyes twice daily. 0 07/15/2013 Active gabapentin 300 mg oral capsule (5 sources) Anti-epileptic Agent Start: 09-07-2023 take 1 capsule by mouth twice daily Gabapentin 300 mg capsule Active 300 mg PO TWICE A DAY September 07, 2023 12:00am Start: 06-05-2014 gabapentin (NE URONTIN) 300 mg capsule Take 300 mg bid x 1 week then 300 mg tid thereafter 90 capsule 3 06/05/2014 Active hydroCHLOROthiazide 12.5 mg / lisinopril 20 mg oral tablet (1 source) Thiazide Diuretic, Angiotensin Converting Enzyme Inhibitor Start: 12-30-2013 take 1 tablet by mouth once daily lisinopril-hydrochlorothiazide (PRINZIDE,ZESTORETIC) 20-12.5 mg per tablet Take 1 tablet by mouth once daily. 90 tablet 3 12/30/2013 Active hydroxychloroquine sulfate 200 mg oral tablet (4 sources) Antimalarial, Antirheumatic Agent Start: 01-27-2024 take 1 tablet by mouth once daily Hydroxychloroquine 200 mg tablet Active 200 mg PO DAILY January 27, 2024 1:00am mecobalamin 1 mg chewable tablet (4 sources) Start: 09-07-2023 take 1 tablet by mouth once Mecobalamin (Vitamin B12) 1,000 mcg tablet,chewable Active 1000 ug PO every Thursday, Thursday, and Thursday September 07, 2023 12:00am Start: 09-07-2023 MULTIVITS,TH W-CA,FE,OTH MIN (MULTIVITAMIN AND MINERAL ORAL) (1 source) MULTIVITS,TH W-CA,FE,OTH MIN (MULTIVITAMIN AND MINERAL ORAL) Take by mouth. 0 Active pantoprazole 40 mg delayed release oral tablet (8 sources) Proton Pump Inhibitor Start: 5 End: 5 take 1 tablet by mouth once daily Pantoprazole 40 mg Tablet,Delayed Release (Dr/Ec) Active 40 mg PO DAILY April 01, 2024 1:00am vitamin b12 1 mg oral tablet (1 source) Vitamin B12 take 1 tablet by mouth once daily cyanocobalamin (VITAMIN B-12) 1,000 mcg tab Take 1,000 mcg by mouth once daily. 0 Active Completed/Discontinued Medications Medication Drug Class(es) Dates Sig (Normalized) Sig (Original) amiodarone hydrochloride 200 mg oral tablet (20 sources) Antiarrhythmic Start: 02-22-2024 End: 02-22-2024 take 1 tablet by mouth once daily Amiodarone 200 mg tablet Discontinued 200 mg PO DAILY February 22, 2024 1:00am February 22, 2024 5:56pm Start: 01-27-2024 End: 01-30-2024 Amiodarone 200 mg tablet Discontinued 100 mg PO DAILY January 27, 2024 1:00am January 30, 2024 11:22am Start: 09-07-2023 End: 01-30-2024 take 1 tablet by mouth once daily Amiodarone 200 mg tablet Discontinued 200 mg PO DAILY November 10, 2023 11:43am January 27, 2024 5:20pm aspirin 81 mg chewable tablet (5 sources) Platelet Aggregation Inhibitor, Nonsteroidal Anti-inflammatory Drug Start: 02-25-2024 End: 03-09-2024 take 1 tablet by mouth at breakfast Aspirin 81 mg Tablet,Chewable Discontinued 81 mg PO WITH BREAKFAST 0 February 25, 2024 1:00am March 09, 2024 2:24pm Start: 02-25-2024 End: 03-09-2024 Start: 10-18-2013 take 1 tablet by mouth once da rhonda aspirin, enteric coated (ASPIRIN LOW DOSE) 81 mg EC tablet Take 1 tablet by mouth once daily. 0 10/18/2013 Active docusate sodium 50 mg / sennosides, halfway 8.6 mg oral tablet (4 sources) Start: 02-25-2024 End: 04-01-2024 Sennosides-Docusate Sodium (Stimulant Laxative Plus) 8.6-50 mg Tablet Discontinued 2 {tbl} PO TWICE A DAY as needed for Constipation 0 February 25, 2024 1:00am April 01, 2024 2:54pm Start: 02-25-2024 End: 04-01-2024 ferrous sulfate 325 mg oral tablet (2 sources) Start: 09-07-2023 End: 07-06-2024 take 1 tablet by mouth once daily Ferrous Sulfate 325 mg (65 mg iron) tablet Discontinued 325 mg PO DAILY September 07, 2023 12:00am July 06, 2024 3:30pm Food Supplemt, Lactose-Reduced (Ensure Plus High Protein) 0.08 gram-1.5 kcal/mL Liquid (2 sources) Start: 03-09-2024 End: 04-01-2024 Food Supplemt, Lactose-Reduced (Ensure Plus High Protein) 0.08 gram-1.5 kcal/mL Liquid Discontinued 120 mL PO 4 TIMES DAILY 0 March 09, 2024 1:00am April 01, 2024 2:54pm furosemide 40 mg oral tablet (12 sources) Loop Diuretic Start: 01-30-2024 End: 04-01-2024 take 1 tablet by mouth once daily Furosemide 40 mg tablet Discontinued 40 mg PO DAILY January 30, 2024 1:00am April 01, 2024 2:54pm Start: 12-22-2023 End: 01-26-2024 take 1 tablet by mouth once daily Furosemide (Lasix) 40 mg tablet Discontinued 40 mg PO .COMPLEX 5 December 29, 2023 3:47pm January 26, 2024 12:56pm 40 mg orally daily X 5 days; hydrALAZINE hydrochloride 25 mg oral tablet (8 sources) Arteriolar Vasodilator Start: 01-27-2024 End: 01-29-2024 take 1 tablet by mouth twice daily Hydralazine 25 mg tablet Discontinued 25 mg PO TWICE A DAY January 27, 2024 1:00am January 30, 2024 12:44am Start: 09-07-2023 End: 10-21-2023 take 1 tablet by mouth once daily Hydralazine 25 mg tablet Discontinued 25 mg PO DAILY September 07, 2023 12:00am October 21, 2023 12:29pm hydroCHLOROthiazide 25 mg oral tablet (8 sources) Thiazide Diuretic Start: 11-12-2023 End: 01-30-2024 take 1 tablet by mouth every twelve hours Hydrochlorothiazide 25 mg tablet Discontinued 25 mg PO Q12H November 12, 2023 12:00am January 30, 2024 11:21am Start: 10-21-2023 End: 01-30-2024 take 1 tablet by mouth once daily in the morning Hydrochlorothiazide 25 mg tablet Discontinued 25 mg PO EVERY MORNING October 21, 2023 12:00am November 12, 2023 12:35pm levothyroxine sodium 0.025 mg oral capsule (4 sources) l-Thyroxine Start: 09-07-2023 End: 10-21-2023 take 1 capsule by mouth once daily Levothyroxine 25 mcg capsule Discontinued 25 ug PO DAILY September 07, 2023 12:00am October 21, 2023 11:07am lisinopril 40 mg oral tablet (4 sources) Angiotensin Converting Enzyme Inhibitor Start: 09-07-2023 End: 04-01-2024 take 1 tablet by mouth once daily Lisinopril 40 mg tablet Discontinued 40 mg PO DAILY September 07, 2023 12:00am April 01, 2024 2:54pm On Hold: until restarted by nephro metoprolol tartrate 50 mg oral tablet (4 sources) beta-Adrenergic Mare Start: 09-07-2023 End: 10-21-2023 take 1 tablet by mouth once daily Metoprolol Tartrate 50 mg tablet Discontinued 50 mg PO DAILY September 07, 2023 12:00am October 21, 2023 11:07am ondansetron 4 mg disintegrating oral tablet (4 sources) Serotonin-3 Receptor Antagonist Start: 02-25-2024 End: 04-01-2024 take 1 tablet by mouth every six hours as needed for nausea and vomiting Ondansetron 4 mg tablet,disintegrat ing Discontinued 4 mg PO EVERY 6 HOURS as needed for nausea and vomiting February 25, 2024 1:00am April 01, 2024 2:54pm microencapsulated potassium chloride 20 meq extended release oral tablet (4 sources) Start: 01-30-2024 End: 02-25-2024 Potassium Chloride (Klor-Con M20) 20 mEq tablet,ER particles/crystals Discontinued 20 meq PO DAILY January 30, 2024 1:00am February 25, 2024 1:01pm propranolol hydrochloride 40 mg oral tablet (8 sources) beta-Adrenergic Mare Start: 02-22-2024 End: 02-25-2024 take 1 tablet by mouth twice daily Propranolol 40 mg tablet Discontinued 40 mg PO TWICE A DAY February 22, 2024 1:00am February 25, 2024 1:02pm Start: 01-27-2024 End: 01-30-2024 take 1 tablet by mouth once daily Propranolol 40 mg tablet Discontinued 40 mg PO DAILY January 27, 2024 1:00am January 30, 2024 11:19am rivaroxaban 20 mg oral tablet (8 sources) Factor Xa Inhibitor Start: 02-15-2024 End: 02-25-2024 take 1 tablet by mouth once daily at dinner Rivaroxaban (Xarelto) 20 mg tablet Discontinued 20 mg PO EVERY EVENING February 15, 2024 1:00am February 25, 2024 1:02pm must administer with evening meal Start: 09-07-2023 End: 10-21-2023 take 1 tablet by mouth once daily at dinner Rivaroxaban (Xarelto) 15 mg tablet Discontinued 15 mg PO DAILY September 07, 2023 12:00am October 21, 2023 12:29pm must administer with evening meal tiZANidine 2 mg oral tablet (7 sources) Central alpha-2 Adrenergic Agonist Start: 05-16-2024 End: 07-06-2024 take 1 tablet by mouth every eight hours as needed Tizanidine 2 mg tablet Discontinued 2 mg PO Q8H as needed May 16, 2024 12:00am July 06, 2024 3:30pm Start: 09-07-2023 End: 01-27-2024 take 1 capsule by mouth every eight hours as needed Tizanidine 2 mg capsule Discontinued 2 mg PO Q8H as needed for muscle spasticity September 07, 2023 12:00am January 27, 2024 7:00pm (4 sources) Start: 03-09-2024 End: 04-01-2024 Start: 09-07-2023 Problems Active Problems Problem Classification Problem Date Documented Da te Episodic/Chronic Acute and unspecified renal failure (9 sources) Renal failure syndrome; Translations: [Unspecified kidney failure] Onset: 5 03-17-2024 Chronic Acute cerebrovascular disease (20 sources) Cerebellar infarction; 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] Onset: 5 02-27-2024 Chronic Biliary tract disease (17 sources) Common bile duct calculus; Translations: [Calculus of bile duct without cholangitis or cholecystitis without obstruction] Onset: 5 04-15-2024 Episodic Cardiac dysrhythmias (20 sources) Cardiac arrhythmia; Translations: [Cardiac arrhythmia, unspecified] Onset: 4 09-07-2023 Chronic Chronic kidney disease (14 sources) Chronic kidney disease stage 3B ; Translations: [Stage 3b chronic kidney disease] 03-09-2024 Chronic Chronic kidney disease (2 sources) Chronic kidney disease; Translations: [Chronic kidney disease, stage 3b] Onset: Conduction disorders (8 sources) First degree atrioventricular block; Translations: [Atrioventricular block, first degree] 01-27-2024 Chronic Congestive heart failure; nonhypertensive (7 sources) Acute exacerbation of chronic congestive heart failure; Translations: [Heart failure, unspecified] Onset: 4 02-03-2024 Chronic Deficiency and other anemia (8 sources) Anemia; Translations: [Anemia, unspecified] 04-15-2024 Episodic Deficiency and other anemia (12 sources) Iron deficiency anemia; Translations: [Iron deficiency anemia, unspecified] 03-17-2024 Episodic Disorders of lipid metabolism (20 sources) Hyperlipidemia; Translations: [Hyperlipidemia, unspecified] Onset: 4 03-17-2024 Chronic Essential hypertension (19 sources) Essential hypertension; Translations: [Essential (primary) hypertension] Onset: 4 03-17-2024 Chronic Gastrointestinal hemorrhage (9 sources) Gastrointestinal hemorrhage; Translations: [Gastrointestinal hemorrhage, unspecified] Onset: 5 04-15-2024 Episodic Heart valve disorders (5 sources) Aortic valve disorder; Translations: [Nonrheumatic aortic valve disorder, unspecified] Onset: 4 09-07-2023 Chronic Hypertension with complications and secondary hypertension (1 source) Hypertensive chronic kidney disease with stage 1 through stage 4 chronic kidney disease, or unspecified chronic kidney disease; Translations: [Hypertensive chronic kidney disease with stage 1 through stage 4 chronic kidney disease, or unspecified chronic kidney disease] Onset: Chronic Late effects of cerebrovascular disease (2 sources) 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; Translations: [Other sequelae of cerebral infarction] Onset: 5 Chronic Nutritional deficiencies (10 sources) Vitamin D deficiency; Translations: [Vitamin D deficiency, unspecified] 02-25-2024 Chronic Nutritional deficiencies (10 sources) Cobalamin deficiency; Translations: [Deficiency of other specified B group vitamins] 02-25-2024 Episodic Osteoarthritis (1 source) Osteoarthritis; Translations: [Unspecified osteoarthritis, unspecified site] Onset: 4 01-16-2014 Chronic Osteoporosis (6 sources) Senile osteoporosis; Translations: [Age-related osteoporosis without current pathological fracture] Onset: 4 01-16-2014 Chronic Other aftercare (4 sources) Drug therapy finding; Translations: [Other long-term (current) drug therapy] 12-08-2023 Episodic Other connective tissue disease (5 sources) Fibromyalgia; Translations: [Fibromyalgia] Onset: 4 01-16-2014 Episodic Other connective tissue disease (10 sources) Neuropathic pain; Translations: [Neuralgia and neuritis, unspecified] 02-25-2024 Episodic Other gastrointestinal disorders (6 sources) Diarrhea; Translations: [Diarrhea, unspecified] 03-04-2024 Episodic Other hereditary and degenerative nervous system conditions (1 source) Essential tremor; Translations: [Essential tremor] Onset: Chronic Other lower respiratory disease (10 sources) Dyspnea on exertion; Translations: [Other forms of dyspnea] 12-08-2023 Episodic Other lower respiratory disease (4 sources) Dyspnea; Translations: [Shortness of breath] 12-08-2023 Episodic Other nervous system disorders (6 sources) Tremor; Translations: [Tremor, unspecified] 02-22-2024 Episodic Other non-traumatic joint disorders (8 sources) Pain in left shoulder; Translations: [Left shoulder pain] 04-15-2024 Episodic Peripheral and visceral atherosclerosis (15 sources) Ischemic colitis; Translations: [Vascular disorder of intestine, unspecified] Onset: 5 04-15-2024 Chronic Residual codes; unclassified (10 sources) Past history of procedure; Translations: [Other specified postprocedural states] 04-15-2024 Episodic Residual codes; unclassified (2 sources) Other specified postprocedural states; Translations: [Other specified postprocedural states] Onset: Episodic Rheumatoid arthritis and related disease (11 sources) Rheumatoid arthritis; Translations: [Rheumatoid arthritis, unspecified] Onset: 4 09-07-2023 Chronic Systemic lupus erythematosus and connective tissue disorders (5 sources) Sjogren's syndrome; Translations: [Sicca syndrome, unspecified] Onset: 01-16-2014 Chronic Thyroid disorders (1 source) Hypothyroidism, unspecified; Translations: [Hypothyroidism, unspecified] Onset: Chronic Unclassified (2 sources) Call for follow-up appt Past or Other Problems Problem Classification Problem Date Documented Da te Episodic/Chronic Abdominal pain (7 sources) Abdominal pain; Translations: [Unspecified abdominal pain] Onset: 03-14-2024 03-17-2024 Episodic Acute and unspecified renal failure (9 sources) Acute renal failure syndrome; Translations: [Acute kidney failure, unspecified] Onset: 02-25-2024 03-04-2024 Episodic Cardiac dysrhythmias (7 sources) Sinus bradycardia; Translations: [Bradycardia, unspecified] Onset: 01-30-2024 02-03-2024 Episodic Deficiency and other anemia (1 source) Iron deficiency anemia, unspecified; Translations: [Iron deficiency anemia, unspecified] Onset: 03-14-2024 Episodic Deficiency and other anemia (1 source) Anemia, unspecified; Translations: [Anemia, unspecified] Onset: 01-27-2024 Episodic Fluid and electrolyte disorders (9 sources) Hyperkalemia; Translations: [Hyperkalemia] Onset: 02-25-2024 03-04-2024 Episodic Malaise and fatigue (13 sources) Asthenia; Translations: [Other malaise] Onset: 02-25-2024 03-09-2024 Episodic Other lower respiratory disease (1 source) Other forms of dyspnea; Translations: [Other forms of dyspnea] Onset: 03-03-2024 Episodic Other lower respiratory disease (1 source) Shortness of breath; Translations: [Shortness of breath] Onset: 02-10-2024 Episodic Other nervous system disorders (1 source) Tremor, unspecified; Translations: [Tremor, unspecified] Onset: 02-25-2024 Episodic Other screening for suspected conditions (not mental disorders or infectious disease) (14 sources) INR raised; Translations: [Abnormal coagulation profile] Onset: 11-03-2023 02-22-2024 Episodic Peripheral and visceral atherosclerosis (1 source) Acute (reversible) ischemia of large intestine, extent unspecified; Translations: [Acute (reversible) ischemia of large intestine, extent unspecified] Onset: 03-31-2024 Episodic Results Test Name Value Interpretation Reference Range Facility Anion gap in Serum or Plasma Ordered By: Marley Zafar on 07-28-2024 Anion gap [Moles/Vol] 10 mmol/L 06-23 [facility] BUN/creatinine ratioOrdered By: Marley Zafar on 07-28-2024 Urea nitrogen/Creatinine [Mass ratio] 26.6 mg/mg High 11-28 [facility] CBC-Complete Blood Cnt No Di ffon 07-28-2024 Erythrocyte distribution width (RBC) [Ratio] 12.8 % Normal 11.6-14.6 [facility] Comment on above: Performed By: #### L 100.0500, L500.3600 ####[facility] [address] [place], [address] Hematocrit (Bld) [Volume fraction] 36.0 % Low 37-47 [facility] Comment on above: Performed By: #### L 100.0500, L500.3600 ####[facility] [address] [place], [address] Hemoglobin (Bld) [Mass/Vol] 11.7 g/dL Low 12.0-15.0 [facility] Comment on above: Performed By: #### L 100.0500, L500.3600 ####[facility] [address] [place], [address] MCH (RBC) [Entitic mass] 31.5 pg Normal 27.0-32.0 [facility] Comment on above: Performed By: #### L 100.0500, L500.3600 ####[facility] [address] [place], [address] MCHC (RBC) [Mass/Vol] 32.5 g/dL Normal 32-36 [facility] Comment on above: Performed By: #### L 100.0500, L500.3600 ####[facility] [address] [place], [address] MCV (RBC) [Entitic vol] 96.8 fL Normal 81-99 [facility] Comment on above: Performed By: #### L 100.0500, L500.3600 ####[facility] [address] [place], [address] Platelet mean volume (Bld) [Entitic vol] 8.4 fL Normal 6.2-12.0 [facility] Comment on above: Performed By: #### L 100.0500, L500.3600 ####[facility] [address] [place], [address] Platelets (Bld) [#/Vol] 316 10*3/uL Normal 150-450 [facility] Comment on above: Performed By: #### L 100.0500, L500.3600 ####[facility] [address] [place], [address] RBC (Bld) [#/Vol] 3.72 10*6/uL Low 4.2-5.4 [facility] Comment on above: Performed By: #### L 100.0500, L500.3600 ####[facility] [address] [place], [address] RDW SD 45.5 fl High 35.1-43.9 [facility] Comment on above: Performed By: #### L 100.0500, L500.3600 ####[facility] [address] [place], [address] WBC (Bld) [#/Vol] 5.7 10*3/uL Normal 4.4-11.0 [facility] Comment on above: Performed By: #### L 100.0500, L500.3600 ####[facility] [address] [place], [address] Carbon dioxide, total [Moles /volume] in Central venous bloodOrdered By: Marley Zafar on 07-28-2024 CO2 [Moles/Vol] 24.6 mmol/L 21.0-32.0 [facility] Chloride assayOrdered By: Morena Zafar on 07-28-2024 Chloride [Moles/Vol] 105 mmol/L 98-108 [facility] Erythrocyte distribution wid th ratioOrdered By: Marley Zafar on 07-28-2024 Erythrocyte distribution width (RBC) [Ratio] 12.8 % 11.6-14.6 [facility] Erythrocyte distribution wid th standard deviationOrdered By: Marley Zafar on 07-28-2024 Erythrocyte distribution width (RBC) [Ratio] 45.5 fl High 35.1-43.9 [facility] Glomerular filtration rate ( GFR) estimation/1.73 sq m using serum, plasma, or whole bOrdered By: Marley Zafar on 07-28-2024 GFR/1.73 sq M.predicted among non-blacks MDRD (S/P/Bld) [Vol rate/Area] 60 mL/min/{1.73_m2} >60 [facility] Comment on above: mL/min/1.73m2 CKD-EP I Creatinine Equation (2020) Hematocrit Auto (Bld) [Volum e fraction]Ordered By: Marley Zafar on 07-28-2024 Hematocrit (Bld) [Volume fraction] 36.0 % Low 37-47 [facility] Hemoglobin measurementOrdere d By: Marley Zafar 07-28-2024 Hemoglobin (Bld) [Mass/Vol] 11.7 g/dL Low 12.0-15.0 [facility] MCV (mean corpuscular volume ) determinationOrdered By: Marley Zafar on 07-28-2024 MCV (RBC) [Entitic vol] 96.8 fL 81-99 [facility] Mean corpuscular hemoglobin (MCH) determinationOrdered By: Marley Zafar 07-28-2024 MCH (RBC) [Entitic mass] 31.5 pg 27.0-32.0 [facility] Mean corpuscular hemoglobin concentration (MCHC) determinationOrdered By: Marley Zafar 07-28-2024 MCHC (RBC) [Mass/Vol] 32.5 g/dL 32-36 [facility] Mean platelet volume determi nationOrdered By: Marley Zafar on 07-28-2024 Platelet mean volume (Bld) [Entitic vol] 8.4 fL 6.2-12.0 [facility] Platelet countOrdered By: Morena Zafar on 07-28-2024 Platelets (Bld) [#/Vol] 316 10*3/uL 150-450 [facility] Potassium measurement (mass/ volume)Ordered By: Marley Zafar on 07-28-2024 Potassium (Unsp spec) [Mass/Vol] 4.5 mmol/L 3.3-5.1 [facility] Comment on above: Hemolysis present, R esults could be affected. RBC Auto (Bld) [#/Vol]Ordere d By: Marley Zafar on 07-28-2024 RBC (Bld) [#/Vol] 3.72 10*6/uL Low 4.2-5.4 [facility] Renal Profileon 07-28-2024 Albumin [Mass/Vol] 3.8 g/dL Normal 3.4-4.8 [facility] Comment on above: Performed By: #### L 100.0500, L500.3600 ####[facility] [address] [place], [address] BUN/CRE 26.6 RATIO High 10-20 [facility] Comment on above: Performed By: #### L 100.0500, L500.3600 ####[facility] [address] [place], [address] Calcium [Mass/Vol] 9.1 mg/dL Normal 7.6-11.0 [facility] Comment on above: Performed By: #### L 100.0500, L500.3600 ####[facility] [address] [place], [address] Chloride [Moles/Vol] 105 mmol/L Normal 98-108 [facility] Comment on above: Performed By: #### L 100.0500, L500.3600 ####[facility] [address] [place], [address] CO2 [Moles/Vol] 24.6 mmol/L Normal 21.0-32.0 [facility] Comment on above: Performed By: #### L 100.0500, L500.3600 ####[facility] [address] [place], [address] Creatinine [Mass/Vol] 0.92 mg/dL Normal 0.70-1.20 [facility] Comment on above: Performed By: #### L 100.0500, L500.3600 ####[facility] [address] [place], [address] GAP 10 Normal 5-15 [facility] Comment on above: Performed By: #### L 100.0500, L500.3600 ####[facility] [address] [place], [address] GFR/1.73 sq M.predicted among non-blacks MDRD (S/P/Bld) [Vol rate/Area] 60 mL/min/{1.73_m2} Normal >60 [facility] Comment on above: Result Comment: mL/m in/1.73m2 CKD-EPI Creatinine Equation (2020) Performed By: #### L 100.0500, L500.3600 ####[facility] [address] [place], [address] Glucose [Mass/Vol] 91 mg/dL Normal 70-99 [facility] Comment on above: Performed By: #### L 100.0500, L500.3600 ####[facility] [address] [place], [address] Potassium [Moles/Vol] 4.5 mmol/L Normal 3.3-5.1 [facility] Comment on above: Result Comment: Hemo lysis present, Results??could be affected.?? Performed By: #### L 100.0500, L500.3600 ####[facility] [address] [place], [address] Sodium [Moles/Vol] 140 mmol/L Normal 133-145 [facility] Comment on above: Performed By: #### L 100.0500, L500.3600 ####[facility] [address] [place], [address] Urea nitrogen [Mass/Vol] 25 mg/dL High 05-28 [facility] Comment on above: Performed By: #### L 100.0500, L500.3600 ####[facility] [address] [place], [address] Serum creatinine measurement (mass/volume)Ordered By: Marley Zafar on 07-28-2024 Creatinine [Mass/Vol] 0.92 mg/dL 0.70-1.20 [facility] Serum glucose measurement (m ass/volume)Ordered By: Marley Zafar on 07-28-2024 Glucose [Mass/Vol] 91 mg/dL 70-99 [facility] Serum or plasma albumin bear urement (mass/volume)Ordered By: Marley Zafar on 07-28-2024 Albumin [Mass/Vol] 3.8 g/dL 3.4-4.8 [facility] Serum or plasma calcium bear urement (mass/volume)Ordered By: Marley Zafar on 07-28-2024 Calcium [Mass/Vol] 9.1 mg/dL 7.6-11.0 [facility] Serum or plasma urea nitroge n measurement (mass/volume)Ordered By: Marley Zafar on 07-28-2024 Urea nitrogen [Mass/Vol] 25 mg/dL High 05-28 [facility] Sodium levelOrdered By: Elena Zafar on 07-28-2024 Sodium [Moles/Vol] 140 mmol/L 133-145 [facility] White blood cell (WBC) count Ordered By: Marley Zafar on 07-28-2024 WBC (Bld) [#/Vol] 5.7 10*3/uL 4.4-11.0 [facility] ERCP Biliary/Pancreason ERCP Biliary/Pancreas Normal [facility] ERCP Reporton 07-12-2024 ERCP Report Normal [facility] MR/POSTOP.ANEon 07-12-2024 MR/POSTOP.ANE Normal [facility] MR/PCTSJNTO1xi 07-12-2024 MR/POSTOPAN2 Normal [facility] O.R. Fluoro for C-James 06- O.R. Fluoro for C-Arm Normal [facility] Special Stain Group IIon Special Stain Group II Normal [facility] Comment on above: Performed By: #### P SSII ####[facility] [address] [place], [place], [id number] MR/PAT.ANEon 07-06-2024 MR/PAT.ANE Normal [facility] ALP [Catalytic activity/Vol] Ordered By: Keke Suarez on 05-20-2024 Serum or plasma alkaline phosphatase measurement 135 U/L High 35-104 [facility] ALT [Catalytic activity/Vol] Ordered By: Keke Suarez on 05-20-2024 Serum or plasma alanine aminotransferase (ALT) measurement 19 U/L <35 [facility] Absolute lymphocyte countOrd ered By: Keke Suarez on 05-20-2024 Lymphocytes Auto (Unsp spec) [#/Vol] 0.96 10*3/uL 0.83-4.51 [facility] Absolute neutrophil countOrd ered By: Keke Suarez on 05-20-2024 Neutrophils (Bld) [#/Vol] 4.4 10*3/uL 2.0-7.7 [facility] Absolute neutrophil count 4.4 X10^3/uL 2.0-7.7 [facility] Albumin [Mass/Vol]Ordered By : Keke Suarez on 05-20-2024 Serum or plasma albumin measurement (mass/volume) 4.2 g/dL 3.4-4.8 [facility] Albumin/Globulin [Mass ratio ]Ordered By: Keke Suarez on 05-20-2024 Serum or plasma albumin/globulin mass ratio 1.5 RATIO 0.9-2.4 [facility] Anion gap [Moles/Vol]Ordered By: Keke Suarez on 05-20-2024 Anion gap in Serum or Plasma 13 - [facility] Anion gap in Serum or Plasma Ordered By: Keke Erick on 05-20-2024 Anion gap [Moles/Vol] 13 mmol/L - [facility] Automated lymphocyte count a s percentage of total leukocytesOrdered By: Keke Erick on 05-20-2024 Lymphocytes/100 WBC Auto (Unsp spec) 15.8 % Low 19-41 [facility] BUN/creatinine ratioOrdered By: Kekephilly Suarez on 05-20-2024 Urea nitrogen/Creatinine [Mass ratio] 37.0 mg/mg High 10-20 [facility] BUN/creatinine ratio 37.0 RATIO High 10-20 [facility] Basophil percentageOrdered B y: Keke Erick on 05-20-2024 Basophils/100 WBC (Bld) 0.7 % 0-1 [facility] Basophil percentage 0.7 % 0-1 [facility] Bilirubin, totalOrdered By: Keke Erick on 05-20-2024 Bilirubin [Mass/Vol] 0.80 mg/dL 0.00-1.30 [facility] Bilirubin, total 0.80 mg/dL 0.00-1.30 [facility] CBC W/Diff, Automatedon 05-10 Absolute Lymph 0.96 X10 3/uL Normal 0.83-4.51 [facility] Comment on above: Performed By: #### L 100.0100, L500.4050 ####[facility] [address] [place], [address] Absolute Neut 4.4 X10 3/uL Normal 2.0-7.7 [facility] Comment on above: Performed By: #### L 100.0100, L500.4050 ####[facility] [address] [place], [address] Basophils/100 WBC (Bld) 0.7 % Normal 0-1 [facility] Comment on above: Performed By: #### L 100.0100, L500.4050 ####[facility] [address], [address] Eosinophils/100 WBC (Bld) 2.5 % Normal 0-5 [facility] Comment on above: Performed By: #### L 100.0100, L500.4050 ####[facility] [address] [place], [address] Erythrocyte distribution width (RBC) [Ratio] 15.9 % High 11.6-14.6 [facility] Comment on above: Performed By: #### L 100.0100, L500.4050 ####[facility] [address] [place], [address] Hematocrit (Bld) [Volume fraction] 33.6 % Low 37-47 [facility] Comment on above: Performed By: #### L 100.0100, L500.4050 ####[facility] [address] [place], [address] Hemoglobin (Bld) [Mass/Vol] 10.7 g/dL Low 12.0-15.0 [facility] Comment on above: Performed By: #### L 100.0100, L500.4050 ####[facility] [address] [place], [address] IG% 0.500 Normal 0.0-0.9 [facility] Comment on above: Result Comment: IG% - Immature Granulocytes (promyelocytes, myelocytes andmetamyelocytes) > 1% indicates that a LEFT SHIFT is Present. Performed By: #### L 100.0100, L500.4050 ####[facility] [address] [place], [address] Lymphocytes/100 WBC (Bld) 15.8 % Low 19-41 [facility] Comment on above: Performed By: #### L 100.0100, L500.4050 ####[facility] [address] [place], [address] MCH (RBC) [Entitic mass] 31.8 pg Normal 27.0-32.0 [facility] Comment on above: Performed By: #### L 100.0100, L500.4050 ####[facility] [address] [place], [address] MCHC (RBC) [Mass/Vol] 31.8 g/dL Low 32-36 [facility] Comment on above: Performed By: #### L 100.0100, L500.4050 ####[facility] [address] [place], [address] MCV (RBC) [Entitic vol] 99.7 fL High 81-99 [facility] Comment on above: Performed By: #### L 100.0100, L500.4050 ####[facility] [address] [place], [address] Monocytes/100 WBC (Bld) 7.6 % Normal 0-10 [facility] Comment on above: Performed By: #### L 100.0100, L500.4050 ####[facility] [address] [place], [address] Neutrophils/100 WBC (Bld) 72.9 % High 47-70 [facility] Comment on above: Performed By: #### L 100.0100, L500.4050 ####[facility] [address] [place], [address] Nucleated RBC (Bld) [#/Vol] 0 10*3/uL Normal 0-5 [facility] Comment on above: Performed By: #### L 100.0100, L500.4050 ####[facility] [address] [place], [address] Platelet mean volume (Bld) [Entitic vol] 9.0 fL Normal 6.2-12.0 [facility] Comment on above: Performed By: #### L 100.0100, L500.4050 ####[facility] [address] [place], [address] Platelets (Bld) [#/Vol] 344 10*3/uL Normal 150-450 [facility] Comment on above: Performed By: #### L 100.0100, L500.4050 ####[facility] [address] [place], [address] RBC (Bld) [#/Vol] 3.37 10*6/uL Low 4.2-5.4 [facility] Comment on above: Performed By: #### L 100.0100, L500.4050 ####[facility] [address] [place], [address] RDW SD 57.9 fl High 35.1-43.9 [facility] Comment on above: Performed By: #### L 100.0100, L500.4050 ####[facility] [address] [place], [address] WBC (Bld) [#/Vol] 6.1 10*3/uL Normal 4.4-11.0 [facility] Comment on above: Performed By: #### L 100.0100, L500.4050 ####[facility] [address] [place], [address] Calcium [Mass/Vol]Ordered By : Keke Suarez on 05-20-2024 Serum or plasma calcium measurement (mass/volume) 9.7 mg/dL 7.6-11.0 [facility] Carbon dioxide, total [Moles /volume] in Central venous bloodOrdered By: Keke Suarez on 05-20-2024 CO2 [Moles/Vol] 21.4 mmol/L 21.0-32.0 [facility] Carbon dioxide, total [Moles/volume] in Central venous blood 21.4 mmol/L 21.0-32.0 [facility] Chloride assayOrdered By: Ra dex Suarez on 05-20-2024 Chloride [Moles/Vol] 106 mmol/L 98-108 [facility] Chloride assay 106 mmol/L 98-108 [facility] Comprehensive Metabolic Prof ilon 05-20-2024 Albumin [Mass/Vol] 4.2 g/dL Normal 3.4-4.8 [facility] Comment on above: Performed By: #### L 100.0100, L500.4050 ####[facility] [address] [place], [address] Albumin/Globulin [Mass ratio] 1.5 {ratio} Normal 0.9-2.4 [facility] Comment on above: Performed By: #### L 100.0100, L500.4050 ####[facility] [address] [place], [address] ALK PHOS 135 U/L High 35-104 [facility] Comment on above: Performed By: #### L 100.0100, L500.4050 ####[facility] [address] [place], [address] ALT [Catalytic activity/Vol] 19 U/L Normal <=34 [facility] Comment on above: Performed By: #### L 100.0100, L500.4050 ####[facility] [address] [place], [address] AST [Catalytic activity/Vol] 25 U/L Normal <=31 [facility] Comment on above: Performed By: #### L 100.0100, L500.4050 ####[facility] [address] [place], [address] Bilirubin [Mass/Vol] 0.80 mg/dL Normal 0.00-1.30 [facility] Comment on above: Performed By: #### L 100.0100, L500.4050 ####[facility] [address] [place], [address] BUN/CRE 37.0 RATIO High 10-20 [facility] Comment on above: Performed By: #### L 100.0100, L500.4050 ####[facility] [address] [place], [address] Calcium [Mass/Vol] 9.7 mg/dL Normal 7.6-11.0 [facility] Comment on above: Performed By: #### L 100.0100, L500.4050 ####[facility] [address] [place], [address] Chloride [Moles/Vol] 106 mmol/L Normal 98-108 [facility] Comment on above: Performed By: #### L 100.0100, L500.4050 ####[facility] [address] [place], [address] CO2 [Moles/Vol] 21.4 mmol/L Normal 21.0-32.0 [facility] Comment on above: Performed By: #### L 100.0100, L500.4050 ####[facility] [address] [place], [address] Creatinine [Mass/Vol] 1.28 mg/dL High 0.70-1.20 [facility] Comment on above: Performed By: #### L 100.0100, L500.4050 ####[facility] [address] [place], [address] GAP 13 Normal 5-15 [facility] Comment on above: Performed By: #### L 100.0100, L500.4050 ####[facility] [address] [place], [address] GFR/1.73 sq M.predicted among non-blacks MDRD (S/P/Bld) [Vol rate/Area] 41 mL/min/{1.73_m2} Low >60 [facility] Comment on above: Result Comment: mL/m in/1.73m2 CKD-EPI Creatinine Equation (2020) Performed By: #### L 100.0100, L500.4050 ####[facility] [address] [place], [address] Globulin (S) [Mass/Vol] 2.8 g/dL Normal 2.2-4.2 [facility] Comment on above: Performed By: #### L 100.0100, L500.4050 ####[facility] [address] [place], [address] Glucose [Mass/Vol] 88 mg/dL Normal 70-99 [facility] Comment on above: Performed By: #### L 100.0100, L500.4050 ####[facility] [address] [place], [address] Potassium [Moles/Vol] 4.4 mmol/L Normal 3.3-5.1 [facility] Comment on above: Performed By: #### L 100.0100, L500.4050 ####[facility] [address] [place], [address] Sodium [Moles/Vol] 141 mmol/L Normal 133-145 [facility] Comment on above: Performed By: #### L 100.0100, L500.4050 ####[facility] [address] [place], [address] T PROT 6.9 g/dL Normal 5.9-8.4 [facility] Comment on above: Performed By: #### L 100.0100, L500.4050 ####[facility] [address] [place], [address] Urea nitrogen [Mass/Vol] 47 mg/dL High 4-19 [facility] Comment on above: Performed By: #### L 100.0100, L500.4050 ####[facility] [address] [place], [address] Creatinine [Mass/Vol]Ordered By: Keke Suarez on 05-20-2024 Serum creatinine measurement (mass/volume) 1.28 mg/dL High 0.70-1.20 [facility] Eosinophil percentageOrdered By: Keke Suarez on 05-20-2024 Eosinophils/100 WBC (Bld) 2.5 % 0-5 [facility] Eosinophil percentage 2.5 % 0-5 [facility] Erythrocyte distribution wid th (RBC) [Ratio]Ordered By: Keke Suarez on 05-20-2024 Erythrocyte distribution width ratio 15.9 % High 11.6-14.6 [facility] Erythrocyte distribution width standard deviation 57.9 fl High 35.1-43.9 [facility] Erythrocyte distribution wid th ratioOrdered By: Keke Suarez on 05-20-2024 Erythrocyte distribution width (RBC) [Ratio] 15.9 % High 11.6-14.6 [facility] Erythrocyte distribution wid th standard deviationOrdered By: Keke Suarez on 05-20-2024 Erythrocyte distribution width (RBC) [Ratio] 57.9 fl High 35.1-43.9 [facility] GFR/1.73 sq M.predicted mary g non-blacks MDRD (S/P/Bld) [Vol rate/Area]Ordered By: Keke Suarez 05-20-2024 Glomerular filtration rate (GFR) estimation/1.73 sq m using serum, plasma, or whole b 41 Low >60 [facility] Glomerular filtration rate ( GFR) estimation/1.73 sq m using serum, plasma, or whole bOrdered By: Keke Suarez on 05-20-2024 GFR/1.73 sq M.predicted among non-blacks MDRD (S/P/Bld) [Vol rate/Area] 41 mL/min/{1.73_m2} Low >60 [facility] Comment on above: mL/min/1.73m2 CKD-EP I Creatinine Equation (2020) Glucose [Mass/Vol]Ordered By : Keke Suarez on 05-20-2024 Serum glucose measurement (mass/volume) 88 mg/dL 70-99 [facility] Hematocrit Auto (Bld) [Volum e fraction]Ordered By: Keke Suarez on 05-20-2024 Hematocrit (Bld) [Volume fraction] 33.6 % Low 37-47 [facility] Automated blood hematocrit (percentage) 33.6 % Low 37-47 [facility] Hemoglobin measurementOrdere d By: Keke Suarez on 05-20-2024 Hemoglobin (Bld) [Mass/Vol] 10.7 g/dL Low 12.0-15.0 [facility] Hemoglobin measurement 10.7 g/dL Low 12.0-15.0 [facility] Immature granulocytes/100 WB C Auto (Bld)Ordered By: Keke Suarez on 05-20-2024 Immature granulocytes/100 WBC (Bld) 0.500 % 0.0-0.9 [facility] Comment on above: IG% - Immature Granu locytes (promyelocytes, myelocytes and metamyelocytes) > 1% indicates that a LEFT SHIFT is Present. Automated immature granulocyte percentage 0.500 % 0.0-0.9 [facility] Laboratory - Chemistry and C hemistry - challengeOrdered By: Keke Suarez on 05-20-2024 AST [Catalytic activity/Vol] 25 U/L <32 [facility] Lymphocytes Auto (Unsp spec) [#/Vol]Ordered By: Keke Suarez on 05-20-2024 Absolute lymphocyte count 0.96 X10^3/uL 0.83-4.51 [facility] Lymphocytes/100 WBC Auto (Un sp spec)Ordered By: Keke Suarez on 05-20-2024 Automated lymphocyte count as percentage of total leukocytes 15.8 % Low 19-41 [facility] MCV (RBC) [Entitic vol]Order ed By: Keke Suarez on 05-20-2024 MCV (mean corpuscular volume) determination 99.7 fL High 81-99 [facility] MCV (mean corpuscular volume ) determinationOrdered By: Keke Suarez on 05-20-2024 MCV (RBC) [Entitic vol] 99.7 fL High 81-99 [facility] Mean corpuscular hemoglobin (MCH) determinationOrdered By: Keke Suarez on 05-20-2024 MCH (RBC) [Entitic mass] 31.8 pg 27.0-32.0 [facility] Mean corpuscular hemoglobin (MCH) determination 31.8 pg 27.0-32.0 [facility] Mean corpuscular hemoglobin concentration (MCHC) determinationOrdered By: Keke Suarez on 05-20-2024 MCHC (RBC) [Mass/Vol] 31.8 g/dL Low 32-36 [facility] Mean corpuscular hemoglobin concentration (MCHC) determination 31.8 g/dL Low 32-36 [facility] Mean platelet volume determi nationOrdered By: Keke Suarez on 05-20-2024 Platelet mean volume (Bld) [Entitic vol] 9.0 fL 6.2-12.0 [facility] Mean platelet volume determination 9.0 fl 6.2-12.0 [facility] Monocyte percentageOrdered B y: Keke Suarez on 05-20-2024 Monocytes/100 WBC (Bld) 7.6 % 0-10 [facility] Monocyte percentage 7.6 % 0-10 [facility] Neutrophil percentageOrdered By: Keke Suarez on 05-20-2024 Neutrophils/100 WBC (Bld) 72.9 % High 47-70 [facility] Neutrophil percentage 72.9 % High 47-70 [facility] No Panel InformationOrdered By: Keke Suarez on 05-20-2024 25 U/L <32 [facility] Nucleated red blood cell per centageOrdered By: Keke Suarez on 05-20-2024 Nucleated RBC/100 WBC (Bld) [Ratio] 0 % 0-5 [facility] Nucleated red blood cell percentage 0 % 0-5 [facility] Platelet countOrdered By: Ra dex Suarez on 05-20-2024 Platelets (Bld) [#/Vol] 344 10*3/uL 150-450 [facility] Platelet count 344 K/mm3 150-450 [facility] Potassium (Unsp spec) [Mass/ Vol]Ordered By: Keke Suarez on 05-20-2024 Potassium measurement (mass/volume) 4.4 mmol/L 3.3-5.1 [facility] Potassium measurement (mass/ volume)Ordered By: Keke Suarez on 05-20-2024 Potassium (Unsp spec) [Mass/Vol] 4.4 mmol/L 3.3-5.1 [facility] RBC Auto (Bld) [#/Vol]Ordere d By: Keke Suarez on 05-20-2024 RBC (Bld) [#/Vol] 3.37 10*6/uL Low 4.2-5.4 [facility] Automated blood erythrocyte count 3.37 M/mm3 Low 4.2-5.4 [facility] Serum creatinine measurement (mass/volume)Ordered By: Keke Suarez on 05-20-2024 Creatinine [Mass/Vol] 1.28 mg/dL High 0.70-1.20 [facility] Serum globulin measurementOr dered By: Keke Suarez on 05-20-2024 Globulin (S) [Mass/Vol] 2.8 g/dL 2.2-4.2 [facility] Serum globulin measurement 2.8 g/dL 2.2-4.2 [facility] Serum glucose measurement (m ass/volume)Ordered By: Keke Suarez on 05-20-2024 Glucose [Mass/Vol] 88 mg/dL 70-99 [facility] Serum or plasma alanine lin otransferase (ALT) measurementOrdered By: Keke Suarez on 05-20-2024 ALT [Catalytic activity/Vol] 19 U/L <35 [facility] Serum or plasma albumin bear urement (mass/volume)Ordered By: Keke Suarez on 05-20-2024 Albumin [Mass/Vol] 4.2 g/dL 3.4-4.8 [facility] Serum or plasma albumin/glob ulin mass ratioOrdered By: Keke Suarez 05-20-2024 Albumin/Globulin [Mass ratio] 1.5 {ratio} 0.9-2.4 [facility] Serum or plasma alkaline safia sphatase measurementOrdered By: Keke Suarez on 05-20-2024 ALP [Catalytic activity/Vol] 135 U/L High 35-104 [facility] Serum or plasma calcium bear urement (mass/volume)Ordered By: Keke Suarez on 05-20-2024 Calcium [Mass/Vol] 9.7 mg/dL 7.6-11.0 [facility] Serum or plasma urea nitroge n measurement (mass/volume)Ordered By: Keke Suarez on 05-20-2024 Urea nitrogen [Mass/Vol] 47 mg/dL High 4-19 [facility] Sodium levelOrdered By: Ritika Suarez on 05-20-2024 Sodium [Moles/Vol] 141 mmol/L 133-145 [facility] Sodium level 141 mmol/L 133-145 [facility] Total proteinOrdered By: Kaley philly Erick on 05-20-2024 Protein [Mass/Vol] 6.9 g/dL 5.9-8.4 [facility] Total protein 6.9 g/dL 5.9-8.4 [facility] Urea nitrogen [Mass/Vol]Orde red By: Keke Suarez on 05-20-2024 Serum or plasma urea nitrogen measurement (mass/volume) 47 mg/dL High 05-28 [facility] White blood cell (WBC) count Ordered By: Keke Suarez on 05-20-2024 WBC (Bld) [#/Vol] 6.1 10*3/uL 4.4-11.0 [facility] White blood cell (WBC) count 6.1 K/mm3 4.4-11.0 [facility] Cardiology Visit Reporton Cardiology Visit Report Normal [facility] Abdomen Single Viewon 2024 Abdomen Single View Normal [facility] Gastroenterology Visit Repor ton 04-15-2024 Gastroenterology Visit Report Normal [facility] Absolute lymphocyte countOrd ered By: Segundo Sultana on 04-07-2024 Lymphocytes Auto (Unsp spec) [#/Vol] 1.07 10*3/uL 0.83-4.51 [facility] Absolute neutrophil countOrd ered By: Segundo Sultana on 04-07-2024 Neutrophils (Bld) [#/Vol] 3.5 10*3/uL 2.0-7.7 [facility] Absolute neutrophil count 3.5 X10^3/uL 2.0-7.7 [facility] Anion gap [Moles/Vol]Ordered By: Segundo Sultana on 04-07-2024 Serum or plasma anion gap determination (moles/volume) 13 5-15 [facility] Automated lymphocyte count a s percentage of total leukocytesOrdered By: Segundo Sultana on 04-07-2024 Lymphocytes/100 WBC Auto (Unsp spec) 19.1 % 19-41 [facility] BUN/creatinine ratioOrdered By: Segundo Sultana on 04-07-2024 Urea nitrogen/Creatinine [Mass ratio] 28.9 mg/mg High 10-20 [facility] BUN/creatinine ratio 28.9 RATIO High 10-20 [facility] Basic Metabolic Profile (BMP )on 04-07-2024 Anion gap [Moles/Vol] 13 mmol/L Normal 5-15 [facility] Comment on above: Performed By: #### L 500.2500 ####[facility] [address] [place], [address] BUN/CRE 28.9 RATIO High 10-20 [facility] Comment on above: Performed By: #### L 500.2500 ####[facility] [address] [place], [address] Calcium [Mass/Vol] 8.8 mg/dL Normal 7.6-11.0 [facility] Comment on above: Performed By: #### L 500.2500 ####[facility] [address] [place], [address] Chloride [Moles/Vol] 111 mmol/L High 96-108 [facility] Comment on above: Performed By: #### L 500.2500 ####[facility] [address] [place], [address] CO2 [Moles/Vol] 19.3 mmol/L Low 22.0-29.0 [facility] Comment on above: Performed By: #### L 500.2500 ####[facility] [address] [place], [address] Creatinine [Mass/Vol] 0.94 mg/dL Normal 0.70-1.20 [facility] Comment on above: Performed By: #### L 500.2500 ####[facility] [address] [place], [address] ECRCL 28.82 ml/min Normal [facility] Comment on above: Performed By: #### L 500.2500 ####[facility] [address] [place], [address] GFR/1.73 sq M.predicted among non-blacks MDRD (S/P/Bld) [Vol rate/Area] 59 mL/min/{1.73_m2} Low >60 [facility] Comment on above: Result Comment: mL/m in/1.73m2 CKD-EPI Creatinine Equation (2020) Performed By: #### L 500.2500 ####[facility] [address] [place], [address] Glucose [Mass/Vol] 85 mg/dL Normal 70-99 [facility] Comment on above: Performed By: #### L 500.2500 ####[facility] [address] [place], [address] Potassium [Moles/Vol] 4.5 mmol/L Normal 3.3-5.1 [facility] Comment on above: Performed By: #### L 500.2500 ####[facility] [address] [place], [address] Sodium [Moles/Vol] 143 mmol/L Normal 133-145 [facility] Comment on above: Performed By: #### L 500.2500 ####[facility] [address] [place], [address] Urea nitrogen [Mass/Vol] 27 mg/dL High 4-19 [facility] Comment on above: Performed By: #### L 500.2500 ####[facility] [address] [place], [address] BUN/CRE 30.8 RATIO High 10-20 [facility] Comment on above: Order Comment: LISE ED Result Comment: DANIEL DED AMENDED REPORT 04/07/24 1058 BUN/CRE previously reported as: 29.0 H RATIO Performed By: #### L 500.2500, L100.0100 ####[facility] [address] [place], [address] Creatinine [Mass/Vol] 0.9 mg/dL Normal 0.6-1.0 [facility] Comment on above: Order Comment: REORD ED Result Comment: REOR DED Performed By: #### L 500.2500, L100.0100 ####[facility] [address] [place], [address] ECRCL 30.11 ml/min Normal [facility] Comment on above: Order Comment: REORD ED Result Comment: REOR DED Performed By: #### L 500.2500, L100.0100 ####[facility] [address] [place], [address] Glucose [Mass/Vol] 85 mg/dL Normal 70-99 [facility] Comment on above: Order Comment: REORD ED Result Comment: REOR DED AMENDED REPORT 04/07/24 1058 GLU previously reported as: 84 mg/dL Performed By: #### L 500.2500, L100.0100 ####[facility] [address] [place], [address] Urea nitrogen [Mass/Vol] 27 mg/dL High 4-19 [facility] Comment on above: Order Comment: REORD ED Result Comment: REOR DED AMENDED REPORT 04/07/24 1058 BUN previously reported as: 26 H mg/dL Performed By: #### L 500.2500, L100.0100 ####[facility] [address] [place], [address] GFR/1.73 sq M.predicted among non-blacks MDRD (S/P/Bld) [Vol rate/Area] 62 mL/min/{1.73_m2} Normal >60 [facility] Comment on above: Order Comment: REORD ED Result Comment: REOR DEDmL/min/1.73m2 CKD-EPI Creatinine Equation (2020) Performed By: #### L 500.2500, L100.0100 ####[facility] [address] [place], [address] Calcium Normal 8.5-10.1 [facility] Comment on above: Order Comment: REORD ED Result Comment: REOR DED Performed By: #### L 500.2500, L100.0100 ####[facility] [address] [place], [address] CL Normal 98-107 [facility] Comment on above: Order Comment: REORD ED Result Comment: REOR DED Performed By: #### L 500.2500, L100.0100 ####[facility] [address] [place], [address] CO2 Normal 21.0-32.0 [facility] Comment on above: Order Comment: REORD ED Result Comment: REOR DED Performed By: #### L 500.2500, L100.0100 ####[facility] [address] [place], [address] EST GFR - AA Normal >60 [facility] Comment on above: Order Comment: REORD ED Result Comment: REOR DED Performed By: #### L 500.2500, L100.0100 ####[facility] [address] [place], [address] GAP Normal 5-15 [facility] Comment on above: Order Comment: REORD ED Result Comment: REOR DED Performed By: #### L 500.2500, L100.0100 ####[facility] [address] [place], [address] Potassium Normal 3.5-5.1 [facility] Comment on above: Order Comment: REORD ED Result Comment: REOR DED Performed By: #### L 500.2500, L100.0100 ####[facility] [address] [place], [address] Basic Metabolic Profile (BMP) Normal 136-145 [facility] Comment on above: Order Comment: REORD ED Result Comment: DANIEL DED Performed By: #### L 500.2500, L100.0100 ####[facility] [address] [place], [address] Basophil percentageOrdered B y: Segundo Sultana on 04-07-2024 Basophils/100 WBC (Bld) 0.7 % 0-1 [facility] Basophil percentage 0.7 % 0-1 [facility] CBC W/Diff, Automatedon 03-13 Absolute Lymph 1.07 X10 3/uL Normal 0.83-4.51 [facility] Comment on above: Performed By: #### L 500.2500, L100.0100 ####[facility] [address] [place], [address] Absolute Neut 3.5 X10 3/uL Normal 2.0-7.7 [facility] Comment on above: Performed By: #### L 500.2500, L100.0100 ####[facility] [address] [place], [address] Basophils/100 WBC (Bld) 0.7 % Normal 0-1 [facility] Comment on above: Performed By: #### L 500.2500, L100.0100 ####[facility] [address] [place], [address] Eosinophils/100 WBC (Bld) 5.9 % High 0-5 [facility] Comment on above: Performed By: #### L 500.2500, L100.0100 ####[facility] [address] [place], [address] Erythrocyte distribution width (RBC) [Ratio] 17.9 % High 11.6-14.6 [facility] Comment on above: Performed By: #### L 500.2500, L100.0100 ####[facility] [address] [place], [address] Hematocrit (Bld) [Volume fraction] 30.0 % Low 37-47 [facility] Comment on above: Performed By: #### L 500.2500, L100.0100 ####[facility] [address] [place], [address] Hemoglobin (Bld) [Mass/Vol] 9.6 g/dL Low 12.0-15.0 [facility] Comment on above: Performed By: #### L 500.2500, L100.0100 ####[facility] [address] [place], [address] IG% 0.900 Normal 0.0-0.9 [facility] Comment on above: Result Comment: IG% - Immature Granulocytes (promyelocytes, myelocytes andmetamyelocytes) > 1% indicates that a LEFT SHIFT is Present. Performed By: #### L 500.2500, L100.0100 ####[facility] [address] [place], [address] Lymphocytes/100 WBC (Bld) 19.1 % Normal 19-41 [facility] Comment on above: Performed By: #### L 500.2500, L100.0100 ####[facility] [address] [place], [address] MCH (RBC) [Entitic mass] 29.6 pg Normal 27.0-32.0 [facility] Comment on above: Performed By: #### L 500.2500, L100.0100 ####[facility] [address] [place], [address] MCHC (RBC) [Mass/Vol] 32.0 g/dL Normal 32-36 [facility] Comment on above: Performed By: #### L 500.2500, L100.0100 ####[facility] [address] [place], [address] MCV (RBC) [Entitic vol] 92.6 fL Normal 81-99 [facility] Comment on above: Performed By: #### L 500.2500, L100.0100 ####[facility] [address] [place], [address] Monocytes/100 WBC (Bld) 11.2 % High 0-10 [facility] Comment on above: Performed By: #### L 500.2500, L100.0100 ####[facility] [address] [place], [address] Neutrophils/100 WBC (Bld) 62.2 % Normal 47-70 [facility] Comment on above: Performed By: #### L 500.2500, L100.0100 ####[facility] [address] [place], [address] Nucleated RBC (Bld) [#/Vol] 0 10*3/uL Normal 0-5 [facility] Comment on above: Performed By: #### L 500.2500, L100.0100 ####[facility] [address] [place], [address] Platelet mean volume (Bld) [Entitic vol] 8.6 fL Normal 6.2-12.0 [facility] Comment on above: Performed By: #### L 500.2500, L100.0100 ####[facility] [address] [place], [address] Platelets (Bld) [#/Vol] 201 10*3/uL Normal 150-450 [facility] Comment on above: Performed By: #### L 500.2500, L100.0100 ####[facility] [address] [place], [address] RBC (Bld) [#/Vol] 3.24 10*6/uL Low 4.2-5.4 [facility] Comment on above: Performed By: #### L 500.2500, L100.0100 ####[facility] [address] [place], [address] RDW SD 61.2 fl High 35.1-43.9 [facility] Comment on above: Performed By: #### L 500.2500, L100.0100 ####[facility] [address] [place], [address] WBC (Bld) [#/Vol] 5.6 10*3/uL Normal 4.4-11.0 [facility] Comment on above: Performed By: #### L 500.2500, L100.0100 ####[facility] [address] [place], [address] Calcium [Mass/Vol]Ordered By : Segundo Sultana on 04-07-2024 Serum or plasma calcium measurement (mass/volume) 8.8 mg/dL 7.6-11.0 [facility] Carbon dioxide measurementOr dered By: Segundo Sultana on 04-07-2024 CO2 [Moles/Vol] 19.3 mmol/L Low 22.0-29.0 [facility] Carbon dioxide measurement 19.3 mmol/L Low 22.0-29.0 [facility] Chloride measurementOrdered By: Segundo Sultana 04-07-2024 Chloride [Moles/Vol] 111 mmol/L High 96-108 [facility] Chloride measurement 111 mmol/L High 96-108 [facility] Creatinine [Mass/Vol]Ordered By: Segundo Sultana 04-07-2024 Serum creatinine measurement (mass/volume) 0.94 mg/dL 0.70-1.20 [facility] Eosinophil percentageOrdered By: Segundo Sultana 04-07-2024 Eosinophils/100 WBC (Bld) 5.9 % High 0-5 [facility] Eosinophil percentage 5.9 % High 0-5 [facility] Erythrocyte distribution wid th (RBC) [Ratio]Ordered By: Segundo Sultana on 04-07-2024 Erythrocyte distribution width ratio 17.9 % High 11.6-14.6 [facility] Erythrocyte distribution wid th ratioOrdered By: Segundo Sultana 04-07-2024 Erythrocyte distribution width (RBC) [Ratio] 17.9 % High 11.6-14.6 [facility] Erythrocyte distribution wid th standard deviationOrdered By: Segundo Sultana on 04-07-2024 Erythrocyte distribution width (RBC) [Ratio] 61.2 fl High 35.1-43.9 [facility] Erythrocyte distribution width standard deviation 61.2 fl High 35.1-43.9 [facility] Estimation of creatinine joni aranceOrdered By: Segundo Sultana on 04-07-2024 Estimation of creatinine clearance 28.82 ml/min [facility] GFR/1.73 sq M.predicted mary g non-blacks MDRD (S/P/Bld) [Vol rate/Area]Ordered By: Segundo Sultana on 04-07-2024 Glomerular filtration rate (GFR) estimation/1.73 sq m using serum, plasma, or whole b 59 Low >60 [facility] Glomerular filtration rate ( GFR) estimation/1.73 sq m using serum, plasma, or whole bOrdered By: Segundo Sultana on 04-07-2024 GFR/1.73 sq M.predicted among non-blacks MDRD (S/P/Bld) [Vol rate/Area] 59 mL/min/{1.73_m2} Low >60 [facility] [facility] Comment on above: mL/min/1.73m2 CKD-EP I Creatinine Equation (2020) Glucose [Mass/Vol]Ordered By : Segundo Sultana on 04-07-2024 Serum glucose measurement (mass/volume) 85 mg/dL 70-99 [facility] Hematocrit Auto (Bld) [Volum e fraction]Ordered By: Segundo Sultana 04-07-2024 Hematocrit (Bld) [Volume fraction] 30.0 % Low 37-47 [facility] Automated blood hematocrit (percentage) 30.0 % Low 37-47 [facility] Hemoglobin measurementOrdere d By: Segundo Sultana 04-07-2024 Hemoglobin (Bld) [Mass/Vol] 9.6 g/dL Low 12.0-15.0 [facility] Hemoglobin measurement 9.6 g/dL Low 12.0-15.0 [facility] Immature granulocytes/100 WB C Auto (Bld)Ordered By: Segundo Sultana 04-07-2024 Immature granulocytes/100 WBC (Bld) 0.900 % 0.0-0.9 [facility] Comment on above: IG% - Immature Granu locytes (promyelocytes, myelocytes and metamyelocytes) > 1% indicates that a LEFT SHIFT is Present. Automated immature granulocyte percentage 0.900 % 0.0-0.9 [facility] Lymphocytes Auto (Unsp spec) [#/Vol]Ordered By: Segundo Sultana on 04-07-2024 Absolute lymphocyte count 1.07 X10^3/uL 0.83-4.51 [facility] Lymphocytes/100 WBC Auto (Un sp spec)Ordered By: Segundo Sultana on 04-07-2024 Automated lymphocyte count as percentage of total leukocytes 19.1 % 19-41 [facility] MCV (RBC) [Entitic vol]Order ed By: Segundo Sultana on 04-07-2024 MCV (mean corpuscular volume) determination 92.6 fL 81-99 [facility] MCV (mean corpuscular volume ) determinationOrdered By: Segundo Sultana on 04-07-2024 MCV (RBC) [Entitic vol] 92.6 fL 81-99 [facility] Mean corpuscular hemoglobin (MCH) determinationOrdered By: Segundo Sultana 04-07-2024 MCH (RBC) [Entitic mass] 29.6 pg 27.0-32.0 [facility] Mean corpuscular hemoglobin (MCH) determination 29.6 pg 27.0-32.0 [facility] Mean corpuscular hemoglobin concentration (MCHC) determinationOrdered By: Segundo Sultana 04-07-2024 MCHC (RBC) [Mass/Vol] 32.0 g/dL 32-36 [facility] Mean corpuscular hemoglobin concentration (MCHC) determination 32.0 g/dL 32-36 [facility] Mean platelet volume determi nationOrdered By: Segundo Sultana on 04-07-2024 Platelet mean volume (Bld) [Entitic vol] 8.6 fL 6.2-12.0 [facility] Mean platelet volume determination 8.6 fl 6.2-12.0 [facility] Monocyte percentageOrdered B y: Segundo Sultana on 04-07-2024 Monocytes/100 WBC (Bld) 11.2 % High 0-10 [facility] Monocyte percentage 11.2 % High 0-10 [facility] Neutrophil percentageOrdered By: Segundo Sultana on 04-07-2024 Neutrophils/100 WBC (Bld) 62.2 % 47-70 [facility] Neutrophil percentage 62.2 % 47-70 [facility] Nucleated red blood cell per centageOrdered By: Segundo Sultana on 04-07-2024 Nucleated RBC/100 WBC (Bld) [Ratio] 0 % 0-5 [facility] Nucleated red blood cell percentage 0 % 0-5 [facility] Platelet countOrdered By: Jonathan Sultana on 04-07-2024 Platelets (Bld) [#/Vol] 201 10*3/uL 150-450 [facility] Platelet count 201 K/mm3 150-450 [facility] Potassium [Moles/Vol]Ordered By: Segundo Sultana on 04-07-2024 Serum or plasma potassium measurement 4.5 mmol/L 3.3-5.1 [facility] RBC Auto (Bld) [#/Vol]Ordere d By: Segundo Sultana on 04-07-2024 RBC (Bld) [#/Vol] 3.24 10*6/uL Low 4.2-5.4 [facility] Automated blood erythrocyte count 3.24 M/mm3 Low 4.2-5.4 [facility] Serum creatinine measurement (mass/volume)Ordered By: Segundo Sultana on 04-07-2024 Creatinine [Mass/Vol] 0.94 mg/dL 0.70-1.20 [facility] Serum glucose measurement (m ass/volume)Ordered By: Segundo Sultana 04-07-2024 Glucose [Mass/Vol] 85 mg/dL 70-99 [facility] Serum or plasma anion gap de termination (moles/volume)Ordered By: Segundo Sultana on 04-07-2024 Anion gap [Moles/Vol] 13 mmol/L 5-15 [facility] Serum or plasma calcium bear urement (mass/volume)Ordered By: Segundo Sultana on 04-07-2024 Calcium [Mass/Vol] 8.8 mg/dL 7.6-11.0 [facility] Serum or plasma potassium me asurementOrdered By: Segundo Sultana 04-07-2024 Potassium [Moles/Vol] 4.5 mmol/L 3.3-5.1 [facility] Serum or plasma sodium measu rement (moles/volume)Ordered By: Segundo Sultana on 04-07-2024 Sodium [Moles/Vol] 143 mmol/L 133-145 [facility] Serum or plasma urea nitroge n measurement (mass/volume)Ordered By: Segundo Sultana on 04-07-2024 Urea nitrogen [Mass/Vol] 27 mg/dL High 05-28 [facility] Sodium [Moles/Vol]Ordered By : Segundo Sultana on 04-07-2024 Serum or plasma sodium measurement (moles/volume) 143 mmol/L 133-145 [facility] Urea nitrogen [Mass/Vol]Orde red By: Segundo Sultana on 04-07-2024 Serum or plasma urea nitrogen measurement (mass/volume) 27 mg/dL High 05-28 [facility] White blood cell (WBC) count Ordered By: Segundo Sultana on 04-07-2024 WBC (Bld) [#/Vol] 5.6 10*3/uL 4.4-11.0 [facility] White blood cell (WBC) count 5.6 K/mm3 4.4-11.0 [facility] Basic Metabolic Profile (BMP )on 03-31-2024 BUN/CRE 32.1 RATIO High 11-28 [facility] Comment on above: Performed By: #### L 100.0100, L500.2500 ####[facility] [address] [place], [address] CA,Total 8.3 mg/dL Low 8.5-10.1 [facility] Comment on above: Performed By: #### L 100.0100, L500.2500 ####[facility] [address] [place], [address] Chloride [Moles/Vol] 113 mmol/L High 98-107 [facility] Comment on above: Performed By: #### L 100.0100, L500.2500 ####[facility] [address] [place], [address] CO2 [Moles/Vol] 23.0 mmol/L Normal 21.0-32.0 [facility] Comment on above: Performed By: #### L 100.0100, L500.2500 ####[facility] [address] [place], [address] Creatinine [Mass/Vol] 0.96 mg/dL Normal 0.55-1.02 [facility] Comment on above: Result Comment: The validity of the calculated GFR GFRAA in patients over70 years has not been determined. Clinical correlation isessential. Performed By: #### L 100.0100, L500.2500 ####[facility] [address] [place], [address] ECRCL 27.71 ml/min Normal [facility] Comment on above: Performed By: #### L 100.0100, L500.2500 ####[facility] [address] [place], [address] EST GFR - AA 70 mL/min Normal >60 [facility] Comment on above: Result Comment: Afri can Lebanese GFR Calc Performed By: #### L 100.0100, L500.2500 ####[facility] [address] [place], [address] GAP 6 Normal 5-15 [facility] Comment on above: Performed By: #### L 100.0100, L500.2500 ####[facility] [address] [place], [address] GFR/1.73 sq M.predicted among non-blacks MDRD (S/P/Bld) [Vol rate/Area] 58 mL/min/{1.73_m2} Low >60 [facility] Comment on above: Result Comment: Non- GFR Calc Performed By: #### L 100.0100, L500.2500 ####[facility] [address] [place], [address] Glucose [Mass/Vol] 80 mg/dL Normal 74-106 [facility] Comment on above: Performed By: #### L 100.0100, L500.2500 ####[facility] [address] [place], [address] Potassium [Moles/Vol] 4.5 mmol/L Normal 3.5-5.1 [facility] Comment on above: Performed By: #### L 100.0100, L500.2500 ####[facility] [address] [place], [address] Sodium [Moles/Vol] 142 mmol/L Normal 136-145 [facility] Comment on above: Performed By: #### L 100.0100, L500.2500 ####[facility] [address] [place], [address] Urea nitrogen [Mass/Vol] 31 mg/dL High 7-18 [facility] Comment on above: Performed By: #### L 100.0100, L500.2500 ####[facility] [address] [place], [address] CBC W/Diff, Automatedon 02-2 0-2025 Absolute Lymph 1.13 X10 3/uL Normal 0.83-4.51 [facility] Comment on above: Performed By: #### L 100.0100, L500.2500 ####[facility] [address] [place], [address] Absolute Neut 2.4 X10 3/uL Normal 2.0-7.7 [facility] Comment on above: Performed By: #### L 100.0100, L500.2500 ####[facility] [address] [place], [address] Basophils/100 WBC (Bld) 1.1 % High 0-1 [facility] Comment on above: Performed By: #### L 100.0100, L500.2500 ####[facility] [address] [place], [address] Eosinophils/100 WBC (Bld) 7.4 % High 0-5 [facility] Comment on above: Performed By: #### L 100.0100, L500.2500 ####[facility] [address] [place], [address] Erythrocyte distribution width (RBC) [Ratio] 17.9 % High 11.6-14.6 [facility] Comment on above: Performed By: #### L 100.0100, L500.2500 ####[facility] [address] [place], [address] Hematocrit (Bld) [Volume fraction] 32.6 % Low 37-47 [facility] Comment on above: Performed By: #### L 100.0100, L500.2500 ####[facility] [address] [place], [address] Hemoglobin (Bld) [Mass/Vol] 10.1 g/dL Low 12.0-15.0 [facility] Comment on above: Performed By: #### L 100.0100, L500.2500 ####[facility] [address] [place], [address] IG% 0.700 Normal 0.0-0.9 [facility] Comment on above: Result Comment: IG% - Immature Granulocytes (promyelocytes, myelocytes andmetamyelocytes) > 1% indicates that a LEFT SHIFT is Present. Performed By: #### L 100.0100, L500.2500 ####[facility] [address] [place], [address] Lymphocytes/100 WBC (Bld) 24.6 % Normal 19-41 [facility] Comment on above: Performed By: #### L 100.0100, L500.2500 ####[facility] [address] [place], [address] MCH (RBC) [Entitic mass] 28.7 pg Normal 27.0-32.0 [facility] Comment on above: Performed By: #### L 100.0100, L500.2500 ####[facility] [address] [place], [address] MCHC (RBC) [Mass/Vol] 31.0 g/dL Low 32-36 [facility] Comment on above: Performed By: #### L 100.0100, L500.2500 ####[facility] [address] [place], [address] MCV (RBC) [Entitic vol] 92.6 fL Normal 81-99 [facility] Comment on above: Performed By: #### L 100.0100, L500.2500 ####[facility] [address] [place], [address] Monocytes/100 WBC (Bld) 13.1 % High 0-10 [facility] Comment on above: Performed By: #### L 100.0100, L500.2500 ####[facility] [address] [place], [address] Neutrophils/100 WBC (Bld) 53.1 % Normal 47-70 [facility] Comment on above: Performed By: #### L 100.0100, L500.2500 ####[facility] [address] [place], [address] Nucleated RBC (Bld) [#/Vol] 0 10*3/uL Normal 0-5 [facility] Comment on above: Performed By: #### L 100.0100, L500.2500 ####[facility] [address] [place], [address] Platelet mean volume (Bld) [Entitic vol] 8.4 fL Normal 6.2-12.0 [facility] Comment on above: Performed By: #### L 100.0100, L500.2500 ####[facility] [address] [place], [address] Platelets (Bld) [#/Vol] 231 10*3/uL Normal 150-450 [facility] Comment on above: Performed By: #### L 100.0100, L500.2500 ####[facility] [address] [place], [address] RBC (Bld) [#/Vol] 3.52 10*6/uL Low 4.2-5.4 [facility] Comment on above: Performed By: #### L 100.0100, L500.2500 ####[facility] [address] [place], [address] RDW SD 62.3 fl High 35.1-43.9 [facility] Comment on above: Performed By: #### L 100.0100, L500.2500 ####[facility] [address] [place], [address] WBC (Bld) [#/Vol] 4.6 10*3/uL Normal 4.4-11.0 [facility] Comment on above: Performed By: #### L 100.0100, L500.2500 ####[facility] [address] [place], [address] Chloride measurementOrdered By: Segundo Sultana on 03-31-2024 Chloride [Moles/Vol] 113 mmol/L High 98-107 [facility] Chloride measurement 113 mmol/L High 98-107 [facility] Estimated glomerular filtrat ion rate (GFR) AmericanOrdered By: Segundo Sultana on 03-31-2024 Estimated glomerular filtration rate (GFR) 70 mL/min >60 [facility] COVID 19 AG RAPID (AMNA Dewey)on 03-30-2024 SARS-CoV-2 (COVID-19) RNA MEÑO+probe Ql (Unsp spec) Normal [facility] Comment on above: Performed By: #### M 100.505 ####[facility] [address] [place], [address] COVID-19 virus antigen assay Ordered By: Segundo Sultana on 03-30-2024 SARS-CoV-2 (COVID-19) Ag IA.rapid Ql (Resp) [facility] Basic Metabolic Profile (BMP )on 03-25-2024 BUN Normal 7-18 [facility] Comment on above: Result Comment: Canc elled via OM: Order cancelled - Patient discharged Performed By: #### L 100.0100, L500.2500 ####[facility] [address] [place], [address] BUN/CRE Normal 10-20 [facility] Comment on above: Result Comment: Canc elled via OM: Order cancelled - Patient discharged Performed By: #### L 100.0100, L500.2500 ####[facility] [address] [place], [address] CA,Total Normal 8.5-10.1 [facility] Comment on above: Result Comment: Canc elled via OM: Order cancelled - Patient discharged Performed By: #### L 100.0100, L500.2500 ####[facility] [address] [place], [address] CL Normal 98-107 [facility] Comment on above: Result Comment: Canc elled via OM: Order cancelled - Patient discharged Performed By: #### L 100.0100, L500.2500 ####[facility] [address] [place], [address] CO2 Normal 21.0-32.0 [facility] Comment on above: Result Comment: Canc elled via OM: Order cancelled - Patient discharged Performed By: #### L 100.0100, L500.2500 ####[facility] [address] [place], [address] CREAT,SERUM Normal 0.55-1.02 [facility] Comment on above: Result Comment: Canc elled via OM: Order cancelled - Patient discharged Performed By: #### L 100.0100, L500.2500 ####[facility] [address] [place], [address] EST GFR Normal >60 [facility] Comment on above: Result Comment: Canc elled via OM: Order cancelled - Patient discharged Performed By: #### L 100.0100, L500.2500 ####[facility] [address] [place], [address] EST GFR - AA Normal >60 [facility] Comment on above: Result Comment: Canc elled via OM: Order cancelled - Patient discharged Performed By: #### L 100.0100, L500.2500 ####[facility] [address] [place], [address] GAP Normal 5-15 [facility] Comment on above: Result Comment: Canc elled via OM: Order cancelled - Patient discharged Performed By: #### L 100.0100, L500.2500 ####[facility] [address] [place], [address] GLU Normal 74-106 [facility] Comment on above: Result Comment: Canc elled via OM: Order cancelled - Patient discharged Performed By: #### L 100.0100, L500.2500 ####[facility] [address] [place], [address] Potassium Normal 3.5-5.1 [facility] Comment on above: Result Comment: Canc elled via OM: Order cancelled - Patient discharged Performed By: #### L 100.0100, L500.2500 ####[facility] [address] [place], [address] Basic Metabolic Profile (BMP) Normal 136-145 [facility] Comment on above: Result Comment: Canc elled via OM: Order cancelled - Patient discharged Performed By: #### L 100.0100, L500.2500 ####[facility] [address] [place], [address] CBC W/Diff, Automatedon 02- Absolute Neut Normal 2.0-7.7 [facility] Comment on above: Result Comment: Canc elled via OM: Order cancelled - Patient discharged Performed By: #### L 100.0100, L500.2500 ####[facility] [address] [place], [address] HCT Normal 37-47 [facility] Comment on above: Result Comment: Canc elled via OM: Order cancelled - Patient discharged Performed By: #### L 100.0100, L500.2500 ####[facility] [address] [place], [address] HGB Normal 12.0-15.0 [facility] Comment on above: Result Comment: Canc elled via OM: Order cancelled - Patient discharged Performed By: #### L 100.0100, L500.2500 ####[facility] [address] [place], [address] MCH Normal 27.0-32.0 [facility] Comment on above: Result Comment: Canc elled via OM: Order cancelled - Patient discharged Performed By: #### L 100.0100, L500.2500 ####[facility] [address] [place], [address] MCHC Normal 32-36 [facility] Comment on above: Result Comment: Canc elled via OM: Order cancelled - Patient discharged Performed By: #### L 100.0100, L500.2500 ####[facility] [address] [place], [address] MCV Normal 81-99 [facility] Comment on above: Result Comment: Canc elled via OM: Order cancelled - Patient discharged Performed By: #### L 100.0100, L500.2500 ####[facility] [address] [place], [address] NEUT% Normal 47-70 [facility] Comment on above: Result Comment: Canc elled via OM: Order cancelled - Patient discharged Performed By: #### L 100.0100, L500.2500 ####[facility] [address] [place], [address] PLT Normal 150-450 [facility] Comment on above: Result Comment: Canc elled via OM: Order cancelled - Patient discharged Performed By: #### L 100.0100, L500.2500 ####[facility] [address] [place], [address] RBC Normal 4.2-5.4 [facility] Comment on above: Result Comment: Canc elled via OM: Order cancelled - Patient discharged Performed By: #### L 100.0100, L500.2500 ####[facility] [address] [place], [address] RDW CV Normal 11.6-14.6 [facility] Comment on above: Result Comment: Canc elled via OM: Order cancelled - Patient discharged Performed By: #### L 100.0100, L500.2500 ####[facility] [address] [place], [address] RDW SD Normal 35.1-43.9 [facility] Comment on above: Result Comment: Canc elled via OM: Order cancelled - Patient discharged Performed By: #### L 100.0100, L500.2500 ####[facility] [address] [place], [address] WBC Normal 4.4-11.0 [facility] Comment on above: Result Comment: Canc elled via OM: Order cancelled - Patient discharged Performed By: #### L 100.0100, L500.2500 ####[facility] [address] [place], [address] Basic Metabolic Profile (BMP )on 03-24-2024 BUN/CRE 19.4 RATIO Normal 10-20 [facility] Comment on above: Performed By: #### L 500.2500, L100.0100 ####[facility] [address] [place], [address] CA,Total 8.3 mg/dL Low 8.5-10.1 [facility] Comment on above: Performed By: #### L 500.2500, L100.0100 ####[facility] [address] [place], [address] Chloride [Moles/Vol] 109 mmol/L High 98-107 [facility] Comment on above: Performed By: #### L 500.2500, L100.0100 ####[facility] [address] [place], [address] CO2 [Moles/Vol] 25.0 mmol/L Normal 21.0-32.0 [facility] Comment on above: Performed By: #### L 500.2500, L100.0100 ####[facility] [address] [place], [address] Creatinine [Mass/Vol] 1.03 mg/dL High 0.55-1.02 [facility] Comment on above: Result Comment: The validity of the calculated GFR GFRAA in patients over70 years has not been determined. Clinical correlation isessential. Performed By: #### L 500.2500, L100.0100 ####[facility] [address] [place], [address] ECRCL 25.80 ml/min Normal [facility] Comment on above: Performed By: #### L 500.2500, L100.0100 ####[facility] [address] [place], [address] EST GFR - AA 65 mL/min Normal >60 [facility] Comment on above: Result Comment: Afri can Lebanese GFR Calc Performed By: #### L 500.2500, L100.0100 ####[facility] [address] [place], [address] GAP 5 Normal 5-15 [facility] Comment on above: Performed By: #### L 500.2500, L100.0100 ####[facility] [address] [place], [address] GFR/1.73 sq M.predicted among non-blacks MDRD (S/P/Bld) [Vol rate/Area] 54 mL/min/{1.73_m2} Low >60 [facility] Comment on above: Result Comment: Non- GFR Calc Performed By: #### L 500.2500, L100.0100 ####[facility] [address] [place], [address] Glucose [Mass/Vol] 75 mg/dL Normal 74-106 [facility] Comment on above: Performed By: #### L 500.2500, L100.0100 ####[facility] [address] [place], [address] Potassium [Moles/Vol] 4.8 mmol/L Normal 3.5-5.1 [facility] Comment on above: Performed By: #### L 500.2500, L100.0100 ####[facility] [address] [place], [address] Sodium [Moles/Vol] 139 mmol/L Normal 136-145 [facility] Comment on above: Performed By: #### L 500.2500, L100.0100 ####[facility] [address] [place], [address] Urea nitrogen [Mass/Vol] 20 mg/dL High 7-18 [facility] Comment on above: Performed By: #### L 500.2500, L100.0100 ####[facility] [address] [place], [address] CBC W/Diff, Automatedon 02-02 11-2024 Absolute Lymph 1.11 X10 3/uL Normal 0.83-4.51 [facility] Comment on above: Performed By: #### L 500.2500, L100.0100 ####[facility] [address] [place], [address] Absolute Neut 2.9 X10 3/uL Normal 2.0-7.7 [facility] Comment on above: Performed By: #### L 500.2500, L100.0100 ####[facility] [address] [place], [address] Basophils/100 WBC (Bld) 1.4 % High 0-1 [facility] Comment on above: Performed By: #### L 500.2500, L100.0100 ####[facility] [address] [place], [address] Eosinophils/100 WBC (Bld) 8.7 % High 0-5 [facility] Comment on above: Performed By: #### L 500.2500, L100.0100 ####[facility] [address] [place], [address] Erythrocyte distribution width (RBC) [Ratio] 17.9 % High 11.6-14.6 [facility] Comment on above: Performed By: #### L 500.2500, L100.0100 ####[facility] [address] [place], [address] Hematocrit (Bld) [Volume fraction] 33.2 % Low 37-47 [facility] Comment on above: Performed By: #### L 500.2500, L100.0100 ####[facility] [address] [place], [address] Hemoglobin (Bld) [Mass/Vol] 10.5 g/dL Low 12.0-15.0 [facility] Comment on above: Performed By: #### L 500.2500, L100.0100 ####[facility] [address] [place], [address] IG% 0.400 Normal 0.0-0.9 [facility] Comment on above: Result Comment: IG% - Immature Granulocytes (promyelocytes, myelocytes andmetamyelocytes) > 1% indicates that a LEFT SHIFT is Present. Performed By: #### L 500.2500, L100.0100 ####[facility] [address] [place], [address] Lymphocytes/100 WBC (Bld) 21.6 % Normal 19-41 [facility] Comment on above: Performed By: #### L 500.2500, L100.0100 ####[facility] [address] [place], [address] MCH (RBC) [Entitic mass] 29.4 pg Normal 27.0-32.0 [facility] Comment on above: Performed By: #### L 500.2500, L100.0100 ####[facility] [address] [place], [address] MCHC (RBC) [Mass/Vol] 31.6 g/dL Low 32-36 [facility] Comment on above: Performed By: #### L 500.2500, L100.0100 ####[facility] [address] [place], [address] MCV (RBC) [Entitic vol] 93.0 fL Normal 81-99 [facility] Comment on above: Performed By: #### L 500.2500, L100.0100 ####[facility] [address] [place], [address] Monocytes/100 WBC (Bld) 12.4 % High 0-10 [facility] Comment on above: Performed By: #### L 500.2500, L100.0100 ####[facility] [address] [place], [address] Neutrophils/100 WBC (Bld) 55.5 % Normal 47-70 [facility] Comment on above: Performed By: #### L 500.2500, L100.0100 ####[facility] [address] [place], [address] Nucleated RBC (Bld) [#/Vol] 0 10*3/uL Normal 0-5 [facility] Comment on above: Performed By: #### L 500.2500, L100.0100 ####[facility] [address] [place], [address] Platelet mean volume (Bld) [Entitic vol] 8.4 fL Normal 6.2-12.0 [facility] Comment on above: Performed By: #### L 500.2500, L100.0100 ####[facility] [address] [place], [address] Platelets (Bld) [#/Vol] 307 10*3/uL Normal 150-450 [facility] Comment on above: Performed By: #### L 500.2500, L100.0100 ####[facility] [address] [place], [address] RBC (Bld) [#/Vol] 3.57 10*6/uL Low 4.2-5.4 [facility] Comment on above: Performed By: #### L 500.2500, L100.0100 ####[facility] [address] [place], [address] RDW SD 61.1 fl High 35.1-43.9 [facility] Comment on above: Performed By: #### L 500.2500, L100.0100 ####[facility] [address] [place], [address] WBC (Bld) [#/Vol] 5.2 10*3/uL Normal 4.4-11.0 [facility] Comment on above: Performed By: #### L 500.2500, L100.0100 ####[facility] [address] [place], [address] COVID 19 AG RAPID (AMNA Dewey)on 03-23-2024 SARS-CoV-2 (COVID-19) RNA MEÑO+probe Ql (Unsp spec) Normal [facility] Comment on above: Performed By: #### M 100.505 ####[facility] [address] [place], [address] COVID-19 virus antigen assay Ordered By: Segundo Sultana on 03-23-2024 SARS-CoV-2 (COVID-19) Ag IA.rapid Ql (Resp) [facility] Basic Metabolic Profile (BMP )on 03-18-2024 BUN Normal 7-18 [facility] Comment on above: Result Comment: Canc elled via OM: Order cancelled - Patient discharged Performed By: #### L 500.2500, L100.0100 ####[facility] [address] [place], [address] BUN/CRE Normal 10-20 [facility] Comment on above: Result Comment: Canc elled via OM: Order cancelled - Patient discharged Performed By: #### L 500.2500, L100.0100 ####[facility] [address] [place], [address] CA,Total Normal 8.5-10.1 [facility] Comment on above: Result Comment: Canc elled via OM: Order cancelled - Patient discharged Performed By: #### L 500.2500, L100.0100 ####[facility] [address] [place], [address] CL Normal 98-107 [facility] Comment on above: Result Comment: Canc elled via OM: Order cancelled - Patient discharged Performed By: #### L 500.2500, L100.0100 ####[facility] [address] [place], [address] CO2 Normal 21.0-32.0 [facility] Comment on above: Result Comment: Canc elled via OM: Order cancelled - Patient discharged Performed By: #### L 500.2500, L100.0100 ####[facility] [address] [place], [address] CREAT,SERUM Normal 0.55-1.02 [facility] Comment on above: Result Comment: Canc elled via OM: Order cancelled - Patient discharged Performed By: #### L 500.2500, L100.0100 ####[facility] [address] [place], [address] EST GFR Normal >60 [facility] Comment on above: Result Comment: Canc elled via OM: Order cancelled - Patient discharged Performed By: #### L 500.2500, L100.0100 ####[facility] [address] [place], [address] EST GFR - AA Normal >60 [facility] Comment on above: Result Comment: Canc elled via OM: Order cancelled - Patient discharged Performed By: #### L 500.2500, L100.0100 ####[facility] [address] [place], [address] GAP Normal 5-15 [facility] Comment on above: Result Comment: Canc elled via OM: Order cancelled - Patient discharged Performed By: #### L 500.2500, L100.0100 ####[facility] [address] [place], [address] GLU Normal 74-106 [facility] Comment on above: Result Comment: Canc elled via OM: Order cancelled - Patient discharged Performed By: #### L 500.2500, L100.0100 ####[facility] [address] [place], [address] Potassium Normal 3.5-5.1 [facility] Comment on above: Result Comment: Canc elled via OM: Order cancelled - Patient discharged Performed By: #### L 500.2500, L100.0100 ####[facility] [address] [place], [address] Basic Metabolic Profile (BMP) Normal 136-145 [facility] Comment on above: Result Comment: Canc elled via OM: Order cancelled - Patient discharged Performed By: #### L 500.2500, L100.0100 ####[facility] [address] [place], [address] CBC W/Diff, Automatedon 02-0 Absolute Neut Normal 2.0-7.7 [facility] Comment on above: Result Comment: Canc elled via OM: Order cancelled - Patient discharged Performed By: #### L 500.2500, L100.0100 ####[facility] [address] [place], [address] HCT Normal 37-47 [facility] Comment on above: Result Comment: Canc elled via OM: Order cancelled - Patient discharged Performed By: #### L 500.2500, L100.0100 ####[facility] [address] [place], [address] HGB Normal 12.0-15.0 [facility] Comment on above: Result Comment: Canc elled via OM: Order cancelled - Patient discharged Performed By: #### L 500.2500, L100.0100 ####[facility] [address] [place], [address] MCH Normal 27.0-32.0 [facility] Comment on above: Result Comment: Canc elled via OM: Order cancelled - Patient discharged Performed By: #### L 500.2500, L100.0100 ####[facility] [address] [place], [address] MCHC Normal 32-36 [facility] Comment on above: Result Comment: Canc elled via OM: Order cancelled - Patient discharged Performed By: #### L 500.2500, L100.0100 ####[facility] [address] [place], [address] MCV Normal 81-99 [facility] Comment on above: Result Comment: Canc elled via OM: Order cancelled - Patient discharged Performed By: #### L 500.2500, L100.0100 ####[facility] [address] [place], [address] NEUT% Normal 47-70 [facility] Comment on above: Result Comment: Canc elled via OM: Order cancelled - Patient discharged Performed By: #### L 500.2500, L100.0100 ####[facility] [address] [place], [address] PLT Normal 150-450 [facility] Comment on above: Result Comment: Canc elled via OM: Order cancelled - Patient discharged Performed By: #### L 500.2500, L100.0100 ####[facility] [address] [place], [address] RBC Normal 4.2-5.4 [facility] Comment on above: Result Comment: Canc elled via OM: Order cancelled - Patient discharged Performed By: #### L 500.2500, L100.0100 ####[facility] [address] [place], [address] RDW CV Normal 11.6-14.6 [facility] Comment on above: Result Comment: Canc elled via OM: Order cancelled - Patient discharged Performed By: #### L 500.2500, L100.0100 ####[facility] [address] [place], [address] RDW SD Normal 35.1-43.9 [facility] Comment on above: Result Comment: Canc elled via OM: Order cancelled - Patient discharged Performed By: #### L 500.2500, L100.0100 ####[facility] [address] [place], [address] WBC Normal 4.4-11.0 [facility] Comment on above: Result Comment: Canc elled via OM: Order cancelled - Patient discharged Performed By: #### L 500.2500, L100.0100 ####[facility] [address] [place], [address] Basic Metabolic Profile (BMP )on 03-17-2024 BUN/CRE 13.2 RATIO Normal 10-20 [facility] Comment on above: Performed By: #### L 100.0100, L500.2500 ####[facility] [address] [place], [address] CA,Total 8.6 mg/dL Normal 8.5-10.1 [facility] Comment on above: Performed By: #### L 100.0100, L500.2500 ####[facility] [address] [place], [address] Chloride [Moles/Vol] 108 mmol/L High 98-107 [facility] Comment on above: Performed By: #### L 100.0100, L500.2500 ####[facility] [address] [place], [address] CO2 [Moles/Vol] 26.0 mmol/L Normal 21.0-32.0 [facility] Comment on above: Performed By: #### L 100.0100, L500.2500 ####[facility] [address] [place], [address] Creatinine [Mass/Vol] 0.98 mg/dL Normal 0.55-1.02 [facility] Comment on above: Result Comment: The validity of the calculated GFR GFRAA in patients over70 years has not been determined. Clinical correlation isessential. Performed By: #### L 100.0100, L500.2500 ####[facility] [address] [place], [address] ECRCL 28.15 ml/min Normal [facility] Comment on above: Performed By: #### L 100.0100, L500.2500 ####[facility] [address] [place], [address] EST GFR - AA 69 mL/min Normal >60 [facility] Comment on above: Result Comment: Afri can Lebanese GFR Calc Performed By: #### L 100.0100, L500.2500 ####[facility] [address] [place], [address] GAP 7 Normal 5-15 [facility] Comment on above: Performed By: #### L 100.0100, L500.2500 ####[facility] [address] [place], [address] GFR/1.73 sq M.predicted among non-blacks MDRD (S/P/Bld) [Vol rate/Area] 57 mL/min/{1.73_m2} Low >60 [facility] Comment on above: Result Comment: Non- GFR Calc Performed By: #### L 100.0100, L500.2500 ####[facility] [address] [place], [address] Glucose [Mass/Vol] 86 mg/dL Normal 74-106 [facility] Comment on above: Performed By: #### L 100.0100, L500.2500 ####[facility] [address] [place], [address] Potassium [Moles/Vol] 3.6 mmol/L Normal 3.5-5.1 [facility] Comment on above: Performed By: #### L 100.0100, L500.2500 ####[facility] [address] [place], [address] Sodium [Moles/Vol] 140 mmol/L Normal 136-145 [facility] Comment on above: Performed By: #### L 100.0100, L500.2500 ####[facility] [address] [place], [address] Urea nitrogen [Mass/Vol] 13 mg/dL Normal 7-18 [facility] Comment on above: Performed By: #### L 100.0100, L500.2500 ####[facility] [address] [place], [address] CBC W/Diff, Automatedon -0 -2024 Absolute Lymph 1.06 X10 3/uL Normal 0.83-4.51 [facility] Comment on above: Performed By: #### L 100.0100, L500.2500 ####[facility] [address] [place], [address] Absolute Neut 4.7 X10 3/uL Normal 2.0-7.7 [facility] Comment on above: Performed By: #### L 100.0100, L500.2500 ####[facility] [address] [place], [address] Basophils/100 WBC (Bld) 1.0 % Normal 0-1 [facility] Comment on above: Performed By: #### L 100.0100, L500.2500 ####[facility] [address] [place], [address] Eosinophils/100 WBC (Bld) 6.4 % High 0-5 [facility] Comment on above: Performed By: #### L 100.0100, L500.2500 ####[facility] [address] [place], [address] Erythrocyte distribution width (RBC) [Ratio] 17.8 % High 11.6-14.6 [facility] Comment on above: Performed By: #### L 100.0100, L500.2500 ####[facility] [address] [place], [address] Hematocrit (Bld) [Volume fraction] 34.7 % Low 37-47 [facility] Comment on above: Performed By: #### L 100.0100, L500.2500 ####[facility] [address] [place], [address] Hemoglobin (Bld) [Mass/Vol] 11.1 g/dL Low 12.0-15.0 [facility] Comment on above: Performed By: #### L 100.0100, L500.2500 ####[facility] [address] [place], [address] IG% 0.900 Normal 0.0-0.9 [facility] Comment on above: Result Comment: IG% - Immature Granulocytes (promyelocytes, myelocytes andmetamyelocytes) > 1% indicates that a LEFT SHIFT is Present. Performed By: #### L 100.0100, L500.2500 ####[facility] [address] [place], [address] Lymphocytes/100 WBC (Bld) 15.1 % Low 19-41 [facility] Comment on above: Performed By: #### L 100.0100, L500.2500 ####[facility] [address] [place], [address] MCH (RBC) [Entitic mass] 30.0 pg Normal 27.0-32.0 [facility] Comment on above: Performed By: #### L 100.0100, L500.2500 ####[facility] [address] [place], [address] MCHC (RBC) [Mass/Vol] 32.0 g/dL Normal 32-36 [facility] Comment on above: Performed By: #### L 100.0100, L500.2500 ####[facility] [address] [place], [address] MCV (RBC) [Entitic vol] 93.8 fL Normal 81-99 [facility] Comment on above: Performed By: #### L 100.0100, L500.2500 ####[facility] [address] [place], [address] Monocytes/100 WBC (Bld) 9.8 % Normal 0-10 [facility] Comment on above: Performed By: #### L 100.0100, L500.2500 ####[facility] [address] [place], [address] Neutrophils/100 WBC (Bld) 66.8 % Normal 47-70 [facility] Comment on above: Performed By: #### L 100.0100, L500.2500 ####[facility] [address] [place], [address] Nucleated RBC (Bld) [#/Vol] 0 10*3/uL Normal 0-5 [facility] Comment on above: Performed By: #### L 100.0100, L500.2500 ####[facility] [address] [place], [address] Platelet mean volume (Bld) [Entitic vol] 8.9 fL Normal 6.2-12.0 [facility] Comment on above: Performed By: #### L 100.0100, L500.2500 ####[facility] [address] [place], [address] Platelets (Bld) [#/Vol] 371 10*3/uL Normal 150-450 [facility] Comment on above: Performed By: #### L 100.0100, L500.2500 ####[facility] [address] [place], [address] RBC (Bld) [#/Vol] 3.70 10*6/uL Low 4.2-5.4 [facility] Comment on above: Performed By: #### L 100.0100, L500.2500 ####[facility] [address] [place], [address] RDW SD 61.5 fl High 35.1-43.9 [facility] Comment on above: Performed By: #### L 100.0100, L500.2500 ####[facility] [address] [place], [address] WBC (Bld) [#/Vol] 7.0 10*3/uL Normal 4.4-11.0 [facility] Comment on above: Performed By: #### L 100.0100, L500.2500 ####[facility] [address] [place], [address] Abdomen Single Viewon 2024 Abdomen Single View Normal [facility] Basic Metabolic Profile (BMP )on 03-11-2024 BUN Normal 7-18 [facility] Comment on above: Result Comment: Canc elled via OM: Order cancelled - Patient discharged Performed By: #### L 100.0100, L500.2500 ####[facility] [address] [place], [address] BUN/CRE Normal 10-20 [facility] Comment on above: Result Comment: Canc elled via OM: Order cancelled - Patient discharged Performed By: #### L 100.0100, L500.2500 ####[facility] [address] [place], [address] CA,Total Normal 8.5-10.1 [facility] Comment on above: Result Comment: Canc elled via OM: Order cancelled - Patient discharged Performed By: #### L 100.0100, L500.2500 ####[facility] [address] [place], [address] CL Normal 98-107 [facility] Comment on above: Result Comment: Canc elled via OM: Order cancelled - Patient discharged Performed By: #### L 100.0100, L500.2500 ####[facility] [address] [place], [address] CO2 Normal 21.0-32.0 [facility] Comment on above: Result Comment: Canc elled via OM: Order cancelled - Patient discharged Performed By: #### L 100.0100, L500.2500 ####[facility] [address] [place], [address] CREAT,SERUM Normal 0.55-1.02 [facility] Comment on above: Result Comment: Canc elled via OM: Order cancelled - Patient discharged Performed By: #### L 100.0100, L500.2500 ####[facility] [address] [place], [address] EST GFR Normal >60 [facility] Comment on above: Result Comment: Canc elled via OM: Order cancelled - Patient discharged Performed By: #### L 100.0100, L500.2500 ####[facility] [address] [place], [address] EST GFR - AA Normal >60 [facility] Comment on above: Result Comment: Canc elled via OM: Order cancelled - Patient discharged Performed By: #### L 100.0100, L500.2500 ####[facility] [address] [place], [address] GAP Normal 5-15 [facility] Comment on above: Result Comment: Canc elled via OM: Order cancelled - Patient discharged Performed By: #### L 100.0100, L500.2500 ####[facility] [address] [place], [address] GLU Normal 74-106 [facility] Comment on above: Result Comment: Canc elled via OM: Order cancelled - Patient discharged Performed By: #### L 100.0100, L500.2500 ####[facility] [address] [place], [address] Potassium Normal 3.5-5.1 [facility] Comment on above: Result Comment: Canc elled via OM: Order cancelled - Patient discharged Performed By: #### L 100.0100, L500.2500 ####[facility] [address] [place], [address] Basic Metabolic Profile (BMP) Normal 136-145 [facility] Comment on above: Result Comment: Canc elled via OM: Order cancelled - Patient discharged Performed By: #### L 100.0100, L500.2500 ####[facility] [address] [place], [address] CBC W/Diff, Automatedon -3 Absolute Neut Normal 2.0-7.7 [facility] Comment on above: Result Comment: Canc elled via OM: Order cancelled - Patient discharged Performed By: #### L 100.0100, L500.2500 ####[facility] [address] [place], [address] HCT Normal 37-47 [facility] Comment on above: Result Comment: Canc elled via OM: Order cancelled - Patient discharged Performed By: #### L 100.0100, L500.2500 ####[facility] [address] [place], [address] HGB Normal 12.0-15.0 [facility] Comment on above: Result Comment: Canc elled via OM: Order cancelled - Patient discharged Performed By: #### L 100.0100, L500.2500 ####[facility] [address] [place], [address] MCH Normal 27.0-32.0 [facility] Comment on above: Result Comment: Canc elled via OM: Order cancelled - Patient discharged Performed By: #### L 100.0100, L500.2500 ####[facility] [address] [place], [address] MCHC Normal 32-36 [facility] Comment on above: Result Comment: Canc elled via OM: Order cancelled - Patient discharged Performed By: #### L 100.0100, L500.2500 ####[facility] [address] [place], [address] MCV Normal 81-99 [facility] Comment on above: Result Comment: Canc elled via OM: Order cancelled - Patient discharged Performed By: #### L 100.0100, L500.2500 ####[facility] [address] [place], [address] NEUT% Normal 47-70 [facility] Comment on above: Result Comment: Canc elled via OM: Order cancelled - Patient discharged Performed By: #### L 100.0100, L500.2500 ####[facility] [address] [place], [address] PLT Normal 150-450 [facility] Comment on above: Result Comment: Canc elled via OM: Order cancelled - Patient discharged Performed By: #### L 100.0100, L500.2500 ####[facility] [address] [place], [address] RBC Normal 4.2-5.4 [facility] Comment on above: Result Comment: Canc elled via OM: Order cancelled - Patient discharged Performed By: #### L 100.0100, L500.2500 ####[facility] [address] [place], [address] RDW CV Normal 11.6-14.6 [facility] Comment on above: Result Comment: Canc elled via OM: Order cancelled - Patient discharged Performed By: #### L 100.0100, L500.2500 ####[facility] [address] [place], [address] RDW SD Normal 35.1-43.9 [facility] Comment on above: Result Comment: Canc elled via OM: Order cancelled - Patient discharged Performed By: #### L 100.0100, L500.2500 ####[facility] [address] [place], [address] WBC Normal 4.4-11.0 [facility] Comment on above: Result Comment: Canc elled via OM: Order cancelled - Patient discharged Performed By: #### L 100.0100, L500.2500 ####[facility] [address] [place], [address] Basic Metabolic Profile (BMP )on 03-10-2024 BUN/CRE 22.8 RATIO High 10-20 [facility] Comment on above: Performed By: #### L 100.0100, L500.2500 ####[facility] [address] [place], [address] CA,Total 8.3 mg/dL Low 8.5-10.1 [facility] Comment on above: Performed By: #### L 100.0100, L500.2500 ####[facility] [address] [place], [address] Chloride [Moles/Vol] 104 mmol/L Normal 98-107 [facility] Comment on above: Performed By: #### L 100.0100, L500.2500 ####[facility] [address] [place], [address] CO2 [Moles/Vol] 29.0 mmol/L Normal 21.0-32.0 [facility] Comment on above: Performed By: #### L 100.0100, L500.2500 ####[facility] [address] [place], [address] Creatinine [Mass/Vol] 0.92 mg/dL Normal 0.55-1.02 [facility] Comment on above: Result Comment: The validity of the calculated GFR GFRAA in patients over70 years has not been determined. Clinical correlation isessential. Performed By: #### L 100.0100, L500.2500 ####[facility] [address] [place], [address] ECRCL 29.96 ml/min Normal [facility] Comment on above: Performed By: #### L 100.0100, L500.2500 ####[facility] [address] [place], [address] EST GFR - AA 74 mL/min Normal >60 [facility] Comment on above: Result Comment: Afri can Lebanese GFR Calc Performed By: #### L 100.0100, L500.2500 ####[facility] [address] [place], [address] GAP 6 Normal 5-15 [facility] Comment on above: Performed By: #### L 100.0100, L500.2500 ####[facility] [address] [place], [address] GFR/1.73 sq M.predicted among non-blacks MDRD (S/P/Bld) [Vol rate/Area] 61 mL/min/{1.73_m2} Normal >60 [facility] Comment on above: Result Comment: Non- GFR Calc Performed By: #### L 100.0100, L500.2500 ####[facility] [address] [place], [address] Glucose [Mass/Vol] 99 mg/dL Normal 74-106 [facility] Comment on above: Performed By: #### L 100.0100, L500.2500 ####[facility] [address] [place], [address] Potassium [Moles/Vol] 3.6 mmol/L Normal 3.5-5.1 [facility] Comment on above: Performed By: #### L 100.0100, L500.2500 ####[facility] [address] [place], [address] Sodium [Moles/Vol] 139 mmol/L Normal 136-145 [facility] Comment on above: Performed By: #### L 100.0100, L500.2500 ####[facility] [address] [place], [address] Urea nitrogen [Mass/Vol] 21 mg/dL High 7-18 [facility] Comment on above: Performed By: #### L 100.0100, L500.2500 ####[facility] [address] [place], [address] CBC W/Diff, Automatedon -3 0-2024 Absolute Lymph 0.78 X10 3/uL Low 0.83-4.51 [facility] Comment on above: Performed By: #### L 100.0100, L500.2500 ####[facility] [address] [place], [address] Absolute Neut 8.8 X10 3/uL High 2.0-7.7 [facility] Comment on above: Performed By: #### L 100.0100, L500.2500 ####[facility] [address] [place], [address] Basophils/100 WBC (Bld) 0.4 % Normal 0-1 [facility] Comment on above: Performed By: #### L 100.0100, L500.2500 ####[facility] [address] [place], [address] Eosinophils/100 WBC (Bld) 2.9 % Normal 0-5 [facility] Comment on above: Performed By: #### L 100.0100, L500.2500 ####[facility] [address] [place], [address] Erythrocyte distribution width (RBC) [Ratio] 18.7 % High 11.6-14.6 [facility] Comment on above: Performed By: #### L 100.0100, L500.2500 ####[facility] [address] [place], [address] Hematocrit (Bld) [Volume fraction] 33.6 % Low 37-47 [facility] Comment on above: Performed By: #### L 100.0100, L500.2500 ####[facility] [address] [place], [address] Hemoglobin (Bld) [Mass/Vol] 11.1 g/dL Low 12.0-15.0 [facility] Comment on above: Performed By: #### L 100.0100, L500.2500 ####[facility] [address] [place], [address] IG% 0.900 Normal 0.0-0.9 [facility] Comment on above: Result Comment: IG% - Immature Granulocytes (promyelocytes, myelocytes andmetamyelocytes) > 1% indicates that a LEFT SHIFT is Present. Performed By: #### L 100.0100, L500.2500 ####[facility] [address] [place], [address] Lymphocytes/100 WBC (Bld) 7.2 % Low 19-41 [facility] Comment on above: Performed By: #### L 100.0100, L500.2500 ####[facility] [address] [place], [address] MCH (RBC) [Entitic mass] 30.0 pg Normal 27.0-32.0 [facility] Comment on above: Performed By: #### L 100.0100, L500.2500 ####[facility] [address] [place], [address] MCHC (RBC) [Mass/Vol] 33.0 g/dL Normal 32-36 [facility] Comment on above: Performed By: #### L 100.0100, L500.2500 ####[facility] [address] [place], [address] MCV (RBC) [Entitic vol] 90.8 fL Normal 81-99 [facility] Comment on above: Performed By: #### L 100.0100, L500.2500 ####[facility] [address] [place], [address] Monocytes/100 WBC (Bld) 7.8 % Normal 0-10 [facility] Comment on above: Performed By: #### L 100.0100, L500.2500 ####[facility] [address] [place], [address] Neutrophils/100 WBC (Bld) 80.8 % High 47-70 [facility] Comment on above: Performed By: #### L 100.0100, L500.2500 ####[facility] [address] [place], [address] Nucleated RBC (Bld) [#/Vol] 0 10*3/uL Normal 0-5 [facility] Comment on above: Performed By: #### L 100.0100, L500.2500 ####[facility] [address] [place], [address] Platelet mean volume (Bld) [Entitic vol] 8.7 fL Normal 6.2-12.0 [facility] Comment on above: Performed By: #### L 100.0100, L500.2500 ####[facility] [address] [place], [address] Platelets (Bld) [#/Vol] 231 10*3/uL Normal 150-450 [facility] Comment on above: Performed By: #### L 100.0100, L500.2500 ####[facility] [address] [place], [address] RBC (Bld) [#/Vol] 3.70 10*6/uL Low 4.2-5.4 [facility] Comment on above: Performed By: #### L 100.0100, L500.2500 ####[facility] [address] [place], [address] RDW SD 62.1 fl High 35.1-43.9 [facility] Comment on above: Performed By: #### L 100.0100, L500.2500 ####[facility] [address] [place], [address] WBC (Bld) [#/Vol] 10.9 10*3/uL Normal 4.4-11.0 [facility] Comment on above: Performed By: #### L 100.0100, L500.2500 ####[facility] [address] [place], [address] ALP [Catalytic activity/Vol] Ordered By: Elsy Zafar on 03-09-2024 Serum or plasma alkaline phosphatase measurement 67 U/L 45-117 [facility] ALT [Catalytic activity/Vol] Ordered By: Elsy Zafar on 03-09-2024 Serum or plasma alanine aminotransferase (ALT) measurement 23 U/L 13-56 [facility] Absolute neutrophil countOrd ered By: Clotilde Tamayo on 03-09-2024 Absolute neutrophil count 10.3 X10^3/uL High 2.0-7.7 [facility] Albumin [Mass/Vol]Ordered By : Elsy Zafar on 03-09-2024 Serum or plasma albumin measurement (mass/volume) 2.6 g/dL Low 3.2-5.0 [facility] Albumin to globulin ratioOrd ered By: Elsy Zafar on 03-09-2024 Albumin to globulin ratio 0.9 RATIO 0.9-2.4 [facility] Basophil percentageOrdered B y: Clotilde Tamayo on 03-09-2024 Basophil percentage 0.2 % 0-1 [facility] Bilirubin, totalOrdered By: Elsy Zafar on 03-09-2024 Bilirubin, total 1.00 mg/dL 0.20-1.00 [facility] Blood urea nitrogen (BUN)/cr eatinine ratioOrdered By: Elsy Zafar on 03-09-2024 Blood urea nitrogen (BUN)/creatinine ratio 22.6 RATIO High 10-20 [facility] CBC W/Diff, Automatedon 02-10 Absolute Lymph 0.97 X10 3/uL Normal 0.83-4.51 [facility] Comment on above: Performed By: #### L 100.0100 ####[facility] [address] [place], [address] Absolute Neut 10.3 X10 3/uL High 2.0-7.7 [facility] Comment on above: Performed By: #### L 100.0100 ####[facility] [address] [place], [address] Basophils/100 WBC (Bld) 0.2 % Normal 0-1 [facility] Comment on above: Performed By: #### L 100.0100 ####[facility] [address] [place], [address] Eosinophils/100 WBC (Bld) 1.1 % Normal 0-5 [facility] Comment on above: Performed By: #### L 100.0100 ####[facility] [address] [place], [address] Erythrocyte distribution width (RBC) [Ratio] 18.7 % High 11.6-14.6 [facility] Comment on above: Performed By: #### L 100.0100 ####[facility] [address] [place], [address] Hematocrit (Bld) [Volume fraction] 32.6 % Low 37-47 [facility] Comment on above: Performed By: #### L 100.0100 ####[facility] [address] [place], [address] Hemoglobin (Bld) [Mass/Vol] 10.8 g/dL Low 12.0-15.0 [facility] Comment on above: Performed By: #### L 100.0100 ####[facility] [address] [place], [address] IG% 0.600 Normal 0.0-0.9 [facility] Comment on above: Result Comment: IG% - Immature Granulocytes (promyelocytes, myelocytes andmetamyelocytes) > 1% indicates that a LEFT SHIFT is Present. Performed By: #### L 100.0100 ####[facility] [address] [place], [address] Lymphocytes/100 WBC (Bld) 7.9 % Low 19-41 [facility] Comment on above: Performed By: #### L 100.0100 ####[facility] [address] [place], [address] MCH (RBC) [Entitic mass] 29.7 pg Normal 27.0-32.0 [facility] Comment on above: Performed By: #### L 100.0100 ####[facility] [address] [place], [address] MCHC (RBC) [Mass/Vol] 33.1 g/dL Normal 32-36 [facility] Comment on above: Performed By: #### L 100.0100 ####[facility] [address] [place], [address] MCV (RBC) [Entitic vol] 89.6 fL Normal 81-99 [facility] Comment on above: Performed By: #### L 100.0100 ####[facility] [address] [place], [address] Monocytes/100 WBC (Bld) 6.4 % Normal 0-10 [facility] Comment on above: Performed By: #### L 100.0100 ####[facility] [address] [place], [address] Neutrophils/100 WBC (Bld) 83.8 % High 47-70 [facility] Comment on above: Performed By: #### L 100.0100 ####[facility] [address] [place], [address] Nucleated RBC (Bld) [#/Vol] 0 10*3/uL Normal 0-5 [facility] Comment on above: Performed By: #### L 100.0100 ####[facility] [address] [place], [address] Platelet mean volume (Bld) [Entitic vol] 8.3 fL Normal 6.2-12.0 [facility] Comment on above: Performed By: #### L 100.0100 ####[facility] [address] [place], [address] Platelets (Bld) [#/Vol] 253 10*3/uL Normal 150-450 [facility] Comment on above: Performed By: #### L 100.0100 ####[facility] [address] [place], [address] RBC (Bld) [#/Vol] 3.64 10*6/uL Low 4.2-5.4 [facility] Comment on above: Performed By: #### L 100.0100 ####[facility] [address] [place], [address] RDW SD 60.7 fl High 35.1-43.9 [facility] Comment on above: Performed By: #### L 100.0100 ####[facility] [address] [place], [address] WBC (Bld) [#/Vol] 12.3 10*3/uL High 4.4-11.0 [facility] Comment on above: Performed By: #### L 100.0100 ####[facility] [address] [place], [address] Calcium [Mass/Vol]Ordered By : Elsy Zafar on 03-09-2024 Serum or plasma calcium measurement (mass/volume) 8.8 mg/dL 8.5-10.1 [facility] Carbon dioxide measurementOr dered By: Elsy Zafar on 03-09-2024 Carbon dioxide measurement 27.0 mmol/L 21.0-32.0 [facility] Chloride measurementOrdered By: Elsy Zafar on 03-09-2024 Chloride measurement 106 mmol/L 98-107 [facility] Comprehensive Metabolic Prof ilon 03-09-2024 Albumin [Mass/Vol] 2.6 g/dL Low 3.2-5.0 [facility] Comment on above: Performed By: #### L 500.4050 ####[facility] [address] [place], [address] Albumin/Globulin [Mass ratio] 0.9 {ratio} Normal 0.9-2.4 [facility] Comment on above: Performed By: #### L 500.4050 ####[facility] [address] [place], [address] ALK P 67 U/L Normal 45-117 [facility] Comment on above: Performed By: #### L 500.4050 ####[facility] [address] [place], [address] ALT [Catalytic activity/Vol] 23 U/L Normal 13-56 [facility] Comment on above: Performed By: #### L 500.4050 ####[facility] [address] [place], [address] AST [Catalytic activity/Vol] 13 U/L Low 15-37 [facility] Comment on above: Performed By: #### L 500.4050 ####[facility] [address] [place], [address] Bilirubin [Mass/Vol] 1.00 mg/dL Normal 0.20-1.00 [facility] Comment on above: Result Comment: For patients on eltrombopag therapy, use of Dimension [place] TBIL is not recommended. Performed By: #### L 500.4050 ####[facility] [address] [place], [address] BUN/CRE 22.6 RATIO High 10-20 [facility] Comment on above: Performed By: #### L 500.4050 ####[facility] [address] [place], [address] CA,Total 8.8 mg/dL Normal 8.5-10.1 [facility] Comment on above: Performed By: #### L 500.4050 ####[facility] [address] [place], [address] Chloride [Moles/Vol] 106 mmol/L Normal 98-107 [facility] Comment on above: Performed By: #### L 500.4050 ####[facility] [address] [place], [address] CO2 [Moles/Vol] 27.0 mmol/L Normal 21.0-32.0 [facility] Comment on above: Performed By: #### L 500.4050 ####[facility] [address] [place], [address] Creatinine [Mass/Vol] 1.06 mg/dL High 0.55-1.02 [facility] Comment on above: Result Comment: The validity of the calculated GFR GFRAA in patients over70 years has not been determined. Clinical correlation isessential. Performed By: #### L 500.4050 ####[facility] [address] [place], [address] ECRCL 26.52 ml/min Normal [facility] Comment on above: Performed By: #### L 500.4050 ####[facility] [address] [place], [address] EST GFR - AA 63 mL/min Normal >60 [facility] Comment on above: Result Comment: Afri can Lebanese GFR Calc Performed By: #### L 500.4050 ####[facility] [address] [place], [address] GAP 7 Normal 5-15 [facility] Comment on above: Performed By: #### L 500.4050 ####[facility] [address] [place], [address] GFR/1.73 sq M.predicted among non-blacks MDRD (S/P/Bld) [Vol rate/Area] 52 mL/min/{1.73_m2} Low >60 [facility] Comment on above: Result Comment: Non- GFR Calc Performed By: #### L 500.4050 ####[facility] [address] [place], [address] Globulin (S) [Mass/Vol] 3.0 g/dL Normal 2.2-4.2 [facility] Comment on above: Performed By: #### L 500.4050 ####[facility] [address] [place], [address] Glucose [Mass/Vol] 83 mg/dL Normal 74-106 [facility] Comment on above: Performed By: #### L 500.4050 ####[facility] [address] [place], [address] Potassium [Moles/Vol] 3.5 mmol/L Normal 3.5-5.1 [facility] Comment on above: Performed By: #### L 500.4050 ####[facility] [address] [place], [address] Sodium [Moles/Vol] 140 mmol/L Normal 136-145 [facility] Comment on above: Performed By: #### L 500.4050 ####[facility] [address] [place], [address] T PROT 5.6 g/dL Low 6.4-8.2 [facility] Comment on above: Performed By: #### L 500.4050 ####[facility] [address] [place], [place], [id number] Urea nitrogen [Mass/Vol] 24 mg/dL High 7-18 [facility] Comment on above: Performed By: #### L 500.4050 ####[facility] [address] [place], [place], [id number] Creatinine [Mass/Vol]Ordered By: Elsy Zafar on 03-09-2024 Serum or plasma creatinine measurement (mass/volume) 1.06 mg/dL High 0.55-1.02 [facility] Eosinophil percentageOrdered By: Clotilde Tamayo on 03-09-2024 Eosinophil percentage 1.1 % 0-5 [facility] Erythrocyte distribution wid th (RBC) [Ratio]Ordered By: Clotilde Tamayo on 03-09-2024 Erythrocyte distribution width ratio 18.7 % High 11.6-14.6 [facility] Erythrocyte distribution wid th standard deviationOrdered By: Clotilde Tamayo on 03-09-2024 Erythrocyte distribution width standard deviation 60.7 fl High 35.1-43.9 [facility] Estimated glomerular filtrat ion rate (GFR) AmericanOrdered By: Elsy Zafar on 03-09-2024 Estimated glomerular filtration rate (GFR) 63 mL/min >60 [facility] Estimation of creatinine joni aranceOrdered By: Elsy Zafar on 03-09-2024 Estimation of creatinine clearance 26.52 ml/min [facility] Glomerular filtration rate ( GFR) estimationOrdered By: Elsy Zafar on 03-09-2024 Glomerular filtration rate (GFR) estimation 52 mL/min Low >60 [facility] Glucose measurementOrdered B y: Elsy Zafar on 03-09-2024 Glucose measurement 83 mg/dL 74-106 [facility] Hematocrit Auto (Bld) [Volum e fraction]Ordered By: Clotilde Tamayo on 03-09-2024 Automated blood hematocrit (percentage) 32.6 % Low 37-47 [facility] Hemoglobin measurementOrdere d By: Clotilde Tamayo on 03-09-2024 Hemoglobin measurement 10.8 g/dL Low 12.0-15.0 [facility] Immature granulocytes/100 WB C Auto (Bld)Ordered By: Clotilde Tamayo on 03-09-2024 Automated immature granulocyte percentage 0.600 % 0.0-0.9 [facility] Lymphocytes Auto (Unsp spec) [#/Vol]Ordered By: Clotilde Tamayo on 03-09-2024 Absolute lymphocyte count 0.97 X10^3/uL 0.83-4.51 [facility] Lymphocytes/100 WBC Auto (Un sp spec)Ordered By: Clotilde Tamayo on 03-09-2024 Automated lymphocyte count as percentage of total leukocytes 7.9 % Low 19-41 [facility] MCV (RBC) [Entitic vol]Order ed By: Clotilde Tamayo on 03-09-2024 MCV (mean corpuscular volume) determination 89.6 fL 81-99 [facility] Mean corpuscular hemoglobin (MCH) determinationOrdered By: Clotilde Tamayo on 03-09-2024 Mean corpuscular hemoglobin (MCH) determination 29.7 pg 27.0-32.0 [facility] Mean corpuscular hemoglobin concentration (MCHC) determinationOrdered By: Clotilde Tamayo on 03-09-2024 Mean corpuscular hemoglobin concentration (MCHC) determination 33.1 g/dL 32-36 [facility] Mean platelet volume determi nationOrdered By: Clotilde Tamayo on 03-09-2024 Mean platelet volume determination 8.3 fl 6.2-12.0 [facility] Monocyte percentageOrdered B y: Clotilde Tamayo on 03-09-2024 Monocyte percentage 6.4 % 0-10 [facility] Neutrophil percentageOrdered By: Clotilde Tamayo on 03-09-2024 Neutrophil percentage 83.8 % High 47-70 [facility] No Panel InformationOrdered By: Elsy Zafar on 03-09-2024 13 U/L Low 15-37 [facility] Nucleated red blood cell per centageOrdered By: Clotilde Tamayo on 03-09-2024 Nucleated red blood cell percentage 0 % 0-5 [facility] Platelet countOrdered By: Patsy Tamayo on 03-09-2024 Platelet count 253 K/mm3 150-450 [facility] Potassium measurementOrdered By: Elsy Zafar on 03-09-2024 Potassium measurement 3.5 mmol/L 3.5-5.1 [facility] RBC Auto (Bld) [#/Vol]Ordere d By: Clotilde Tamayo on 03-09-2024 Automated blood erythrocyte count 3.64 M/mm3 Low 4.2-5.4 [facility] Serum anion gap measurementO rdered By: Elsy Zafar on 03-09-2024 Serum anion gap measurement 7 5-15 [facility] Serum globulin measurementOr dered By: Elsy Zafar on 03-09-2024 Serum globulin measurement 3.0 g/dL 2.2-4.2 [facility] Sodium levelOrdered By: Ariana Zafar on 03-09-2024 Sodium level 140 mmol/L 136-145 [facility] Total proteinOrdered By: Felicia Zafar on 03-09-2024 Total protein 5.6 g/dL Low 6.4-8.2 [facility] Urea nitrogen [Mass/Vol]Orde red By: Elsy Zafar on 03-09-2024 Serum or plasma urea nitrogen measurement (mass/volume) 24 mg/dL High 7-18 [facility] White blood cell (WBC) count Ordered By: Clotilde Tamayo on 03-09-2024 White blood cell (WBC) count 12.3 K/mm3 High 4.4-11.0 [facility] CBC W/Diff, Automatedon 02-10 Absolute Lymph 0.74 X10 3/uL Low 0.83-4.51 [facility] Comment on above: Performed By: #### L 100.0100 ####[facility] [address] [place], [address] Absolute Neut 12.3 X10 3/uL High 2.0-7.7 [facility] Comment on above: Performed By: #### L 100.0100 ####[facility] [address] [place], [address] Basophils/100 WBC (Bld) 0.1 % Normal 0-1 [facility] Comment on above: Performed By: #### L 100.0100 ####[facility] [address] [place], [address] Eosinophils/100 WBC (Bld) 0.0 % Normal 0-5 [facility] Comment on above: Performed By: #### L 100.0100 ####[facility] [address] [place], [address] Erythrocyte distribution width (RBC) [Ratio] 18.6 % High 11.6-14.6 [facility] Comment on above: Performed By: #### L 100.0100 ####[facility] [address] [place], [address] Hematocrit (Bld) [Volume fraction] 37.5 % Normal 37-47 [facility] Comment on above: Performed By: #### L 100.0100 ####[facility] [address] [place], [address] Hemoglobin (Bld) [Mass/Vol] 11.9 g/dL Low 12.0-15.0 [facility] Comment on above: Performed By: #### L 100.0100 ####[facility] [address] [place], [address] IG% 0.400 Normal 0.0-0.9 [facility] Comment on above: Result Comment: IG% - Immature Granulocytes (promyelocytes, myelocytes andmetamyelocytes) > 1% indicates that a LEFT SHIFT is Present. Performed By: #### L 100.0100 ####[facility] [address] [place], [address] Lymphocytes/100 WBC (Bld) 5.4 % Low 19-41 [facility] Comment on above: Performed By: #### L 100.0100 ####[facility] [address] [place], [address] MCH (RBC) [Entitic mass] 29.3 pg Normal 27.0-32.0 [facility] Comment on above: Performed By: #### L 100.0100 ####[facility] [address] [place], [address] MCHC (RBC) [Mass/Vol] 31.7 g/dL Low 32-36 [facility] Comment on above: Performed By: #### L 100.0100 ####[facility] [address] [place], [address] MCV (RBC) [Entitic vol] 92.4 fL Normal 81-99 [facility] Comment on above: Performed By: #### L 100.0100 ####[facility] [address] [place], [address] Monocytes/100 WBC (Bld) 4.0 % Normal 0-10 [facility] Comment on above: Performed By: #### L 100.0100 ####[facility] [address] [place], [address] Neutrophils/100 WBC (Bld) 90.1 % High 47-70 [facility] Comment on above: Performed By: #### L 100.0100 ####[facility] [address] [place], [address] Nucleated RBC (Bld) [#/Vol] 0 10*3/uL Normal 0-5 [facility] Comment on above: Performed By: #### L 100.0100 ####[facility] [address] [place], [address] Platelet mean volume (Bld) [Entitic vol] 8.7 fL Normal 6.2-12.0 [facility] Comment on above: Performed By: #### L 100.0100 ####[facility] [address] [place], [address] Platelets (Bld) [#/Vol] 283 10*3/uL Normal 150-450 [facility] Comment on above: Performed By: #### L 100.0100 ####[facility] [address] [place], [address] RBC (Bld) [#/Vol] 4.06 10*6/uL Low 4.2-5.4 [facility] Comment on above: Performed By: #### L 100.0100 ####[facility] [address] [place], [address] RDW SD 62.3 fl High 35.1-43.9 [facility] Comment on above: Performed By: #### L 100.0100 ####[facility] [address] [place], [address] WBC (Bld) [#/Vol] 13.6 10*3/uL High 4.4-11.0 [facility] Comment on above: Performed By: #### L 100.0100 ####[facility] [address] [place], [address] Comprehensive Metabolic Prof [facility] 03-08-2024 Albumin [Mass/Vol] 2.9 g/dL Low 3.2-5.0 [facility] Comment on above: Performed By: #### L 501.5200, L501.2300, L500.4050 ####[facility] [address] [place], [address] Albumin/Globulin [Mass ratio] 0.8 {ratio} Low 0.9-2.4 [facility] Comment on above: Performed By: #### L 501.5200, L501.2300, L500.4050 ####[facility] [address] [place], [address] ALK P 71 U/L Normal 45-117 [facility] Comment on above: Performed By: #### L 501.5200, L501.2300, L500.4050 ####[facility] [address] [place], [address] ALT [Catalytic activity/Vol] 30 U/L Normal 13-56 [facility] Comment on above: Performed By: #### L 501.5200, L501.2300, L500.4050 ####[facility] [address] [place], [address] AST [Catalytic activity/Vol] 16 U/L Normal 15-37 [facility] Comment on above: Performed By: #### L 501.5200, L501.2300, L500.4050 ####[facility] [address] [place], [address] Bilirubin [Mass/Vol] 0.70 mg/dL Normal 0.20-1.00 [facility] Comment on above: Result Comment: For patients on eltrombopag therapy, use of Dimension Frederick TBIL is not recommended. Performed By: #### L 501.5200, L501.2300, L500.4050 ####[facility] [address] [place], [address] BUN/CRE 22.8 RATIO High 10-20 [facility] Comment on above: Performed By: #### L 501.5200, L501.2300, L500.4050 ####[facility] [address] [place], [address] CA,Total 9.1 mg/dL Normal 8.5-10.1 [facility] Comment on above: Performed By: #### L 501.5200, L501.2300, L500.4050 ####[facility] [address] [place], [address] Chloride [Moles/Vol] 108 mmol/L High 98-107 [facility] Comment on above: Performed By: #### L 501.5200, L501.2300, L500.4050 ####[facility] [address] [place], [address] CO2 [Moles/Vol] 19.0 mmol/L Low 21.0-32.0 [facility] Comment on above: Performed By: #### L 501.5200, L501.2300, L500.4050 ####[facility] [address] [place], [address] Creatinine [Mass/Vol] 1.23 mg/dL High 0.55-1.02 [facility] Comment on above: Result Comment: The validity of the calculated GFR GFRAA in patients over70 years has not been determined. Clinical correlation isessential. Performed By: #### L 501.5200, L501.2300, L500.4050 ####[facility] [address] [place], [address] ECRCL 22.86 ml/min Normal [facility] Comment on above: Performed By: #### L 501.5200, L501.2300, L500.4050 ####[facility] [address] [place], [address] EST GFR - AA 53 mL/min Low >60 [facility] Comment on above: Result Comment: Afri can Lebanese GFR Calc Performed By: #### L 501.5200, L501.2300, L500.4050 ####[facility] [address] [place], [address] GAP 12 Normal 5-15 [facility] Comment on above: Performed By: #### L 501.5200, L501.2300, L500.4050 ####[facility] [address] [place], [address] GFR/1.73 sq M.predicted among non-blacks MDRD (S/P/Bld) [Vol rate/Area] 44 mL/min/{1.73_m2} Low >60 [facility] Comment on above: Result Comment: Non- GFR Calc Performed By: #### L 501.5200, L501.2300, L500.4050 ####[facility] [address] [place], [address] Globulin (S) [Mass/Vol] 3.6 g/dL Normal 2.2-4.2 [facility] Comment on above: Performed By: #### L 501.5200, L501.2300, L500.4050 ####[facility] [address] [place], [address] Glucose [Mass/Vol] 130 mg/dL High 74-106 [facility] Comment on above: Result Comment: Fast ing Glucose result greater than or equal to 126 mg/dLsuggests DIABETES MELLITUS per A.D.A. criteria. Performed By: #### L 501.5200, L501.2300, L500.4050 ####[facility] [address] [place], [address] Potassium [Moles/Vol] 4.1 mmol/L Normal 3.5-5.1 [facility] Comment on above: Performed By: #### L 501.5200, L501.2300, L500.4050 ####[facility] [address] [place], [address] Sodium [Moles/Vol] 139 mmol/L Normal 136-145 [facility] Comment on above: Performed By: #### L 501.5200, L501.2300, L500.4050 ####[facility] [address] [place], [address] T PROT 6.5 g/dL Normal 6.4-8.2 [facility] Comment on above: Performed By: #### L 501.5200, L501.2300, L500.4050 ####[facility] [address] [place], [address] Urea nitrogen [Mass/Vol] 28 mg/dL High 7-18 [facility] Comment on above: Performed By: #### L 501.5200, L501.2300, L500.4050 ####[facility] [address] [place], [address] Magnesiumon 03-08-2024 Magnesium [Mass/Vol] 1.9 mg/dL Normal 1.6-2.6 [facility] Comment on above: Performed By: #### L 501.5200, L501.2300, L500.4050 ####[facility] [address] [place], [address] Magnesium measurementOrdered By: Elsy Zafar on 03-08-2024 Magnesium measurement 1.9 mg/dL 1.6-2.6 [facility] Phosphoruson 03-08-2024 Phosphate [Mass/Vol] 4.6 mg/dL Normal 2.5-4.9 [facility] Comment on above: Performed By: #### L 501.5200, L501.2300, L500.4050 ####[facility] [address] [place], [address] Phosphorus measurementOrdere d By: Elsy Zafar on 03-08-2024 Phosphorus measurement 4.6 mg/dL 2.5-4.9 [facility] CBC W/Diff, Automatedon 02-10 Absolute Lymph 0.85 X10 3/uL Normal 0.83-4.51 [facility] Comment on above: Performed By: #### L 100.0100 ####[facility] [address] [place], [address] Absolute Neut 4.1 X10 3/uL Normal 2.0-7.7 [facility] Comment on above: Performed By: #### L 100.0100 ####[facility] [address] [place], [address] Basophils/100 WBC (Bld) 0.7 % Normal 0-1 [facility] Comment on above: Performed By: #### L 100.0100 ####[facility] [address] [place], [address] Eosinophils/100 WBC (Bld) 8.8 % High 0-5 [facility] Comment on above: Performed By: #### L 100.0100 ####[facility] [address] [place], [address] Erythrocyte distribution width (RBC) [Ratio] 18.0 % High 11.6-14.6 [facility] Comment on above: Performed By: #### L 100.0100 ####[facility] [address] [place], [address] Hematocrit (Bld) [Volume fraction] 33.8 % Low 37-47 [facility] Comment on above: Performed By: #### L 100.0100 ####[facility] [address] [place], [address] Hemoglobin (Bld) [Mass/Vol] 11.3 g/dL Low 12.0-15.0 [facility] Comment on above: Performed By: #### L 100.0100 ####[facility] [address] [place], [address] IG% 0.700 Normal 0.0-0.9 [facility] Comment on above: Result Comment: IG% - Immature Granulocytes (promyelocytes, myelocytes andmetamyelocytes) > 1% indicates that a LEFT SHIFT is Present. Performed By: #### L 100.0100 ####[facility] [address] [place], [address] Lymphocytes/100 WBC (Bld) 14.1 % Low 19-41 [facility] Comment on above: Performed By: #### L 100.0100 ####[facility] [address] [place], [address] MCH (RBC) [Entitic mass] 30.1 pg Normal 27.0-32.0 [facility] Comment on above: Performed By: #### L 100.0100 ####[facility] [address] [place], [address] MCHC (RBC) [Mass/Vol] 33.4 g/dL Normal 32-36 [facility] Comment on above: Performed By: #### L 100.0100 ####[facility] [address] [place], [address] MCV (RBC) [Entitic vol] 90.1 fL Normal 81-99 [facility] Comment on above: Performed By: #### L 100.0100 ####[facility] [address] [place], [address] Monocytes/100 WBC (Bld) 7.1 % Normal 0-10 [facility] Comment on above: Performed By: #### L 100.0100 ####[facility] [address] [place], [address] Neutrophils/100 WBC (Bld) 68.6 % Normal 47-70 [facility] Comment on above: Performed By: #### L 100.0100 ####[facility] [address] [place], [address] Nucleated RBC (Bld) [#/Vol] 0 10*3/uL Normal 0-5 [facility] Comment on above: Performed By: #### L 100.0100 ####[facility] [address] [place], [address] Platelet mean volume (Bld) [Entitic vol] 9.0 fL Normal 6.2-12.0 [facility] Comment on above: Performed By: #### L 100.0100 ####[facility] [address] [place], [address] Platelets (Bld) [#/Vol] 241 10*3/uL Normal 150-450 [facility] Comment on above: Performed By: #### L 100.0100 ####[facility] [address] [place], [address] RBC (Bld) [#/Vol] 3.75 10*6/uL Low 4.2-5.4 [facility] Comment on above: Performed By: #### L 100.0100 ####[facility] [address] [place], [address] RDW SD 58.7 fl High 35.1-43.9 [facility] Comment on above: Performed By: #### L 100.0100 ####[facility] [address] [place], [address] WBC (Bld) [#/Vol] 6.0 10*3/uL Normal 4.4-11.0 [facility] Comment on above: Performed By: #### L 100.0100 ####[facility] [address] [place], [address] ERCP Biliary/Pancreason 02-10 ERCP Biliary/Pancreas Normal [facility] ERCP Reporton 03-07-2024 ERCP Report Normal [facility] MR/PN.GIon 03-07-2024 MR/PN.GI Normal [facility] MR/POSTOP.ANEon 03-07-2024 MR/POSTOP.ANE Normal [facility] MR/LGCZEQXK6yx 03-07-2024 MR/POSTOPAN2 Normal [facility] CBC W/Diff, Automatedon 02-10 Absolute Lymph 0.90 X10 3/uL Normal 0.83-4.51 [facility] Comment on above: Performed By: #### L 100.0100, L500.4050 ####[facility] [address] [place], [address] Absolute Neut 4.5 X10 3/uL Normal 2.0-7.7 [facility] Comment on above: Performed By: #### L 100.0100, L500.4050 ####[facility] [address] [place], [address] Basophils/100 WBC (Bld) 0.5 % Normal 0-1 [facility] Comment on above: Performed By: #### L 100.0100, L500.4050 ####[facility] [address] [place], [address] Eosinophils/100 WBC (Bld) 6.7 % High 0-5 [facility] Comment on above: Performed By: #### L 100.0100, L500.4050 ####[facility] [address] [place], [address] Erythrocyte distribution width (RBC) [Ratio] 18.4 % High 11.6-14.6 [facility] Comment on above: Performed By: #### L 100.0100, L500.4050 ####[facility] [address] [place], [address] Hematocrit (Bld) [Volume fraction] 32.6 % Low 37-47 [facility] Comment on above: Performed By: #### L 100.0100, L500.4050 ####[facility] [address] [place], [address] Hemoglobin (Bld) [Mass/Vol] 10.5 g/dL Low 12.0-15.0 [facility] Comment on above: Performed By: #### L 100.0100, L500.4050 ####[facility] [address] [place], [address] IG% 0.600 Normal 0.0-0.9 [facility] Comment on above: Result Comment: IG% - Immature Granulocytes (promyelocytes, myelocytes andmetamyelocytes) > 1% indicates that a LEFT SHIFT is Present. Performed By: #### L 100.0100, L500.4050 ####[facility] [address] [place], [address] Lymphocytes/100 WBC (Bld) 14.1 % Low 19-41 [facility] Comment on above: Performed By: #### L 100.0100, L500.4050 ####[facility] [address] [place], [address] MCH (RBC) [Entitic mass] 29.3 pg Normal 27.0-32.0 [facility] Comment on above: Performed By: #### L 100.0100, L500.4050 ####[facility] [address] [place], [address] MCHC (RBC) [Mass/Vol] 32.2 g/dL Normal 32-36 [facility] Comment on above: Performed By: #### L 100.0100, L500.4050 ####[facility] [address] [place], [address] MCV (RBC) [Entitic vol] 91.1 fL Normal 81-99 [facility] Comment on above: Performed By: #### L 100.0100, L500.4050 ####[facility] [address] [place], [address] Monocytes/100 WBC (Bld) 7.5 % Normal 0-10 [facility] Comment on above: Performed By: #### L 100.0100, L500.4050 ####[facility] [address] [place], [address] Neutrophils/100 WBC (Bld) 70.6 % High 47-70 [facility] Comment on above: Performed By: #### L 100.0100, L500.4050 ####[facility] [address] [place], [address] Nucleated RBC (Bld) [#/Vol] 0 10*3/uL Normal 0-5 [facility] Comment on above: Performed By: #### L 100.0100, L500.4050 ####[facility] [address] [place], [address] Platelet mean volume (Bld) [Entitic vol] 8.4 fL Normal 6.2-12.0 [facility] Comment on above: Performed By: #### L 100.0100, L500.4050 ####[facility] [address] [place], [address] Platelets (Bld) [#/Vol] 185 10*3/uL Normal 150-450 [facility] Comment on above: Performed By: #### L 100.0100, L500.4050 ####[facility] [address] [place], [address] RBC (Bld) [#/Vol] 3.58 10*6/uL Low 4.2-5.4 [facility] Comment on above: Performed By: #### L 100.0100, L500.4050 ####[facility] [address] [place], [address] RDW SD 61.1 fl High 35.1-43.9 [facility] Comment on above: Performed By: #### L 100.0100, L500.4050 ####[facility] [address] [place], [address] WBC (Bld) [#/Vol] 6.4 10*3/uL Normal 4.4-11.0 [facility] Comment on above: Performed By: #### L 100.0100, L500.4050 ####[facility] [address] [place], [address] Comprehensive Metabolic Prof ilon 03-06-2024 Albumin [Mass/Vol] 2.3 g/dL Low 3.2-5.0 [facility] Comment on above: Performed By: #### L 100.0100, L500.4050 ####[facility] [address] [place], [address] Albumin/Globulin [Mass ratio] 0.7 {ratio} Low 0.9-2.4 [facility] Comment on above: Performed By: #### L 100.0100, L500.4050 ####[facility] [address] [place], [address] ALK P 60 U/L Normal 45-117 [facility] Comment on above: Performed By: #### L 100.0100, L500.4050 ####[facility] [address] [place], [address] ALT [Catalytic activity/Vol] 29 U/L Normal 13-56 [facility] Comment on above: Performed By: #### L 100.0100, L500.4050 ####[facility] [address] [place], [address] AST [Catalytic activity/Vol] 11 U/L Low 15-37 [facility] Comment on above: Performed By: #### L 100.0100, L500.4050 ####[facility] [address] [place], [address] Bilirubin [Mass/Vol] 0.70 mg/dL Normal 0.20-1.00 [facility] Comment on above: Result Comment: For patients on eltrombopag therapy, use of Dimension [place] TBIL is not recommended. Performed By: #### L 100.0100, L500.4050 ####[facility] [address] [place], [address] BUN/CRE 19.0 RATIO Normal 10-20 [facility] Comment on above: Performed By: #### L 100.0100, L500.4050 ####[facility] [address] [place], [address] CA,Total 8.7 mg/dL Normal 8.5-10.1 [facility] Comment on above: Performed By: #### L 100.0100, L500.4050 ####[facility] [address] [place], [address] Chloride [Moles/Vol] 114 mmol/L High 98-107 [facility] Comment on above: Performed By: #### L 100.0100, L500.4050 ####[facility] [address] [place], [address] CO2 [Moles/Vol] 20.0 mmol/L Low 21.0-32.0 [facility] Comment on above: Performed By: #### L 100.0100, L500.4050 ####[facility] [address] [place], [address] Creatinine [Mass/Vol] 1.16 mg/dL High 0.55-1.02 [facility] Comment on above: Result Comment: The validity of the calculated GFR GFRAA in patients over70 years has not been determined. Clinical correlation isessential. Performed By: #### L 100.0100, L500.4050 ####[facility] [address] [place], [address] ECRCL 24.24 ml/min Normal [facility] Comment on above: Performed By: #### L 100.0100, L500.4050 ####[facility] [address] [place], [address] EST GFR - AA 57 mL/min Low >60 [facility] Comment on above: Result Comment: Afri can Lebanese GFR Calc Performed By: #### L 100.0100, L500.4050 ####[facility] [address] [place], [address] GAP 6 Normal 5-15 [facility] Comment on above: Performed By: #### L 100.0100, L500.4050 ####[facility] [address] [place], [address] GFR/1.73 sq M.predicted among non-blacks MDRD (S/P/Bld) [Vol rate/Area] 47 mL/min/{1.73_m2} Low >60 [facility] Comment on above: Result Comment: Non- GFR Calc Performed By: #### L 100.0100, L500.4050 ####[facility] [address] [place], [address] Globulin (S) [Mass/Vol] 3.2 g/dL Normal 2.2-4.2 [facility] Comment on above: Performed By: #### L 100.0100, L500.4050 ####[facility] [address] [place], [address] Glucose [Mass/Vol] 93 mg/dL Normal 74-106 [facility] Comment on above: Performed By: #### L 100.0100, L500.4050 ####[facility] [address] [place], [address] Potassium [Moles/Vol] 3.9 mmol/L Normal 3.5-5.1 [facility] Comment on above: Performed By: #### L 100.0100, L500.4050 ####[facility] [address] [place], [address] Sodium [Moles/Vol] 140 mmol/L Normal 136-145 [facility] Comment on above: Performed By: #### L 100.0100, L500.4050 ####[facility] [address] [place], [address] T PROT 5.5 g/dL Low 6.4-8.2 [facility] Comment on above: Performed By: #### L 100.0100, L500.4050 ####[facility] [address] [place], [address] Urea nitrogen [Mass/Vol] 22 mg/dL High 7-18 [facility] Comment on above: Performed By: #### L 100.0100, L500.4050 ####[facility] [address] [place], [address] CBC W/Diff, Automatedon 02-10 Absolute Lymph 0.89 X10 3/uL Normal 0.83-4.51 [facility] Comment on above: Performed By: #### L 100.0100, L500.4050 ####[facility] [address] [place], [address] Absolute Neut 4.6 X10 3/uL Normal 2.0-7.7 [facility] Comment on above: Performed By: #### L 100.0100, L500.4050 ####[facility] [address] [place], [address] Basophils/100 WBC (Bld) 0.6 % Normal 0-1 [facility] Comment on above: Performed By: #### L 100.0100, L500.4050 ####[facility] [address] [place], [address] Eosinophils/100 WBC (Bld) 7.2 % High 0-5 [facility] Comment on above: Performed By: #### L 100.0100, L500.4050 ####[facility] [address] [place], [address] Erythrocyte distribution width (RBC) [Ratio] 19.1 % High 11.6-14.6 [facility] Comment on above: Performed By: #### L 100.0100, L500.4050 ####[facility] [address] [place], [address] Hematocrit (Bld) [Volume fraction] 31.5 % Low 37-47 [facility] Comment on above: Performed By: #### L 100.0100, L500.4050 ####[facility] [address] [place], [address] Hemoglobin (Bld) [Mass/Vol] 10.2 g/dL Low 12.0-15.0 [facility] Comment on above: Performed By: #### L 100.0100, L500.4050 ####[facility] [address] [place], [address] IG% 0.900 Normal 0.0-0.9 [facility] Comment on above: Result Comment: IG% - Immature Granulocytes (promyelocytes, myelocytes andmetamyelocytes) > 1% indicates that a LEFT SHIFT is Present. Performed By: #### L 100.0100, L500.4050 ####[facility] [address] [place], [address] Lymphocytes/100 WBC (Bld) 13.6 % Low 19-41 [facility] Comment on above: Performed By: #### L 100.0100, L500.4050 ####[facility] [address] [place], [address] MCH (RBC) [Entitic mass] 29.2 pg Normal 27.0-32.0 [facility] Comment on above: Performed By: #### L 100.0100, L500.4050 ####[facility] [address] [place], [address] MCHC (RBC) [Mass/Vol] 32.4 g/dL Normal 32-36 [facility] Comment on above: Performed By: #### L 100.0100, L500.4050 ####[facility] [address] [place], [address] MCV (RBC) [Entitic vol] 90.3 fL Normal 81-99 [facility] Comment on above: Performed By: #### L 100.0100, L500.4050 ####[facility] [address] [place], [address] Monocytes/100 WBC (Bld) 7.4 % Normal 0-10 [facility] Comment on above: Performed By: #### L 100.0100, L500.4050 ####[facility] [address] [place], [address] Neutrophils/100 WBC (Bld) 70.3 % High 47-70 [facility] Comment on above: Performed By: #### L 100.0100, L500.4050 ####[facility] [address] [place], [address] Nucleated RBC (Bld) [#/Vol] 0 10*3/uL Normal 0-5 [facility] Comment on above: Performed By: #### L 100.0100, L500.4050 ####[facility] [address] [place], [address] Platelet mean volume (Bld) [Entitic vol] 8.5 fL Normal 6.2-12.0 [facility] Comment on above: Performed By: #### L 100.0100, L500.4050 ####[facility] [address] [place], [address] Platelets (Bld) [#/Vol] 201 10*3/uL Normal 150-450 [facility] Comment on above: Performed By: #### L 100.0100, L500.4050 ####[facility] [address] [place], [address] RBC (Bld) [#/Vol] 3.49 10*6/uL Low 4.2-5.4 [facility] Comment on above: Performed By: #### L 100.0100, L500.4050 ####[facility] [address] [place], [address] RDW SD 62.3 fl High 35.1-43.9 [facility] Comment on above: Performed By: #### L 100.0100, L500.4050 ####[facility] [address] [place], [address] WBC (Bld) [#/Vol] 6.5 10*3/uL Normal 4.4-11.0 [facility] Comment on above: Performed By: #### L 100.0100, L500.4050 ####[facility] [address] [place], [address] Comprehensive Metabolic Prof ilon 03-05-2024 Albumin [Mass/Vol] 2.3 g/dL Low 3.2-5.0 [facility] Comment on above: Performed By: #### L 100.0100, L500.4050 ####[facility] [address] [place], [address] Albumin/Globulin [Mass ratio] 0.8 {ratio} Low 0.9-2.4 [facility] Comment on above: Performed By: #### L 100.0100, L500.4050 ####[facility] [address] [place], [address] ALK P 61 U/L Normal 45-117 [facility] Comment on above: Performed By: #### L 100.0100, L500.4050 ####[facility] [address] [place], [address] ALT [Catalytic activity/Vol] 33 U/L Normal 13-56 [facility] Comment on above: Performed By: #### L 100.0100, L500.4050 ####[facility] [address] [place], [address] AST [Catalytic activity/Vol] 15 U/L Normal 15-37 [facility] Comment on above: Performed By: #### L 100.0100, L500.4050 ####[facility] [address] [place], [address] Bilirubin [Mass/Vol] 0.90 mg/dL Normal 0.20-1.00 [facility] Comment on above: Result Comment: For patients on eltrombopag therapy, use of Dimension [place] TBIL is not recommended. Performed By: #### L 100.0100, L500.4050 ####[facility] [address] [place], [address] BUN/CRE 13.5 RATIO Normal 10-20 [facility] Comment on above: Performed By: #### L 100.0100, L500.4050 ####[facility] [address] [place], [address] CA,Total 8.6 mg/dL Normal 8.5-10.1 [facility] Comment on above: Performed By: #### L 100.0100, L500.4050 ####[facility] [address] [place], [address] Chloride [Moles/Vol] 114 mmol/L High 98-107 [facility] Comment on above: Performed By: #### L 100.0100, L500.4050 ####[facility] [address] [place], [address] CO2 [Moles/Vol] 20.0 mmol/L Low 21.0-32.0 [facility] Comment on above: Performed By: #### L 100.0100, L500.4050 ####[facility] [address] [place], [address] Creatinine [Mass/Vol] 1.11 mg/dL High 0.55-1.02 [facility] Comment on above: Result Comment: The validity of the calculated GFR GFRAA in patients over70 years has not been determined. Clinical correlation isessential. Performed By: #### L 100.0100, L500.4050 ####[facility] [address] [place], [address] ECRCL 25.33 ml/min Normal [facility] Comment on above: Performed By: #### L 100.0100, L500.4050 ####[facility] [address] [place], [address] EST GFR - AA 60 mL/min Normal >60 [facility] Comment on above: Result Comment: Afri can Lebanese GFR Calc Performed By: #### L 100.0100, L500.4050 ####[facility] [address] [place], [address] GAP 7 Normal 5-15 [facility] Comment on above: Performed By: #### L 100.0100, L500.4050 ####[facility] [address] [place], [address] GFR/1.73 sq M.predicted among non-blacks MDRD (S/P/Bld) [Vol rate/Area] 50 mL/min/{1.73_m2} Low >60 [facility] Comment on above: Result Comment: Non- GFR Calc Performed By: #### L 100.0100, L500.4050 ####[facility] [address] [place], [address] Globulin (S) [Mass/Vol] 2.9 g/dL Normal 2.2-4.2 [facility] Comment on above: Performed By: #### L 100.0100, L500.4050 ####[facility] [address] [place], [address] Glucose [Mass/Vol] 105 mg/dL Normal 74-106 [facility] Comment on above: Result Comment: Fast ing Glucose result from 100 to 125 mg/dLsuggests IMPAIRED HOMEOSTASIS per A.D.A. criteria. Performed By: #### L 100.0100, L500.4050 ####[facility] [address] [place], [address] Potassium [Moles/Vol] 3.8 mmol/L Normal 3.5-5.1 [facility] Comment on above: Performed By: #### L 100.0100, L500.4050 ####[facility] [address] [place], [address] Sodium [Moles/Vol] 141 mmol/L Normal 136-145 [facility] Comment on above: Performed By: #### L 100.0100, L500.4050 ####[facility] [address] [place], [address] T PROT 5.2 g/dL Low 6.4-8.2 [facility] Comment on above: Performed By: #### L 100.0100, L500.4050 ####[facility] [address] [place], [address] Urea nitrogen [Mass/Vol] 15 mg/dL Normal 7-18 [facility] Comment on above: Performed By: #### L 100.0100, L500.4050 ####[facility] [address] [place], [address] Shoulder min 2 Viewson 03-05 Shoulder min 2 Views Normal [facility] Basic Metabolic Profile (BMP )on 03-04-2024 BUN Normal 7-18 [facility] Comment on above: Result Comment: Canc elled via OM: Order cancelled - Patient discharged Performed By: #### L 100.0100, L500.2500 ####[facility] [address] [place], [address] BUN/CRE Normal 10-20 [facility] Comment on above: Result Comment: Canc elled via OM: Order cancelled - Patient discharged Performed By: #### L 100.0100, L500.2500 ####[facility] [address] [place], [address] CA,Total Normal 8.5-10.1 [facility] Comment on above: Result Comment: Canc elled via OM: Order cancelled - Patient discharged Performed By: #### L 100.0100, L500.2500 ####[facility] [address] [facility] [address] CL Normal 98-107 [facility] Comment on above: Result Comment: Canc elled via OM: Order cancelled - Patient discharged Performed By: #### L 100.0100, L500.2500 ####[facility] [address] [place], [address] CO2 Normal 21.0-32.0 [facility] Comment on above: Result Comment: Canc elled via OM: Order cancelled - Patient discharged Performed By: #### L 100.0100, L500.2500 ####[facility] [address] [place], [address] CREAT,SERUM Normal 0.55-1.02 [facility] Comment on above: Result Comment: Canc elled via OM: Order cancelled - Patient discharged Performed By: #### L 100.0100, L500.2500 ####[facility] [address] [place], [address] EST GFR Normal >60 [facility] Comment on above: Result Comment: Canc elled via OM: Order cancelled - Patient discharged Performed By: #### L 100.0100, L500.2500 ####[facility] [address] [place], [address] EST GFR - AA Normal >60 [facility] Comment on above: Result Comment: Canc elled via OM: Order cancelled - Patient discharged Performed By: #### L 100.0100, L500.2500 ####[facility] [address] [place], [address] GAP Normal 5-15 [facility] Comment on above: Result Comment: Canc elled via OM: Order cancelled - Patient discharged Performed By: #### L 100.0100, L500.2500 ####[facility] [address] [place], [address] GLU Normal 74-106 [facility] Comment on above: Result Comment: Canc elled via OM: Order cancelled - Patient discharged Performed By: #### L 100.0100, L500.2500 ####[facility] [address] [place], [address] Potassium Normal 3.5-5.1 [facility] Comment on above: Result Comment: Canc elled via OM: Order cancelled - Patient discharged Performed By: #### L 100.0100, L500.2500 ####[facility] [address] [place], [address] Basic Metabolic Profile (BMP) Normal 136-145 [facility] Comment on above: Result Comment: Canc elled via OM: Order cancelled - Patient discharged Performed By: #### L 100.0100, L500.2500 ####[facility] [address] [place], [address] CBC W/Diff, Automatedon 01-2 Absolute Lymph 0.64 X10 3/uL Low 0.83-4.51 [facility] Comment on above: Performed By: #### L 100.0100, L500.4050 ####[facility] [address] [place], [address] Absolute Neut 9.4 X10 3/uL High 2.0-7.7 [facility] Comment on above: Performed By: #### L 100.0100, L500.4050 ####[facility] [address] [place], [address] Basophils/100 WBC (Bld) 0.3 % Normal 0-1 [facility] Comment on above: Performed By: #### L 100.0100, L500.4050 ####[facility] [address] [place], [address] Eosinophils/100 WBC (Bld) 2.4 % Normal 0-5 [facility] Comment on above: Performed By: #### L 100.0100, L500.4050 ####[facility] [address] [place], [address] Erythrocyte distribution width (RBC) [Ratio] 18.7 % High 11.6-14.6 [facility] Comment on above: Performed By: #### L 100.0100, L500.4050 ####[facility] [address] [place], [address] Hematocrit (Bld) [Volume fraction] 35.0 % Low 37-47 [facility] Comment on above: Performed By: #### L 100.0100, L500.4050 ####[facility] [address] [place], [address] Hemoglobin (Bld) [Mass/Vol] 11.2 g/dL Low 12.0-15.0 [facility] Comment on above: Performed By: #### L 100.0100, L500.4050 ####[facility] [address] [place], [address] IG% 0.900 Normal 0.0-0.9 [facility] Comment on above: Result Comment: IG% - Immature Granulocytes (promyelocytes, myelocytes andmetamyelocytes) > 1% indicates that a LEFT SHIFT is Present. Performed By: #### L 100.0100, L500.4050 ####[facility] [address] [place], [address] Lymphocytes/100 WBC (Bld) 5.8 % Low 19-41 [facility] Comment on above: Performed By: #### L 100.0100, L500.4050 ####[facility] [address] [place], [address] MCH (RBC) [Entitic mass] 28.6 pg Normal 27.0-32.0 [facility] Comment on above: Performed By: #### L 100.0100, L500.4050 ####[facility] [address] [place], [address] MCHC (RBC) [Mass/Vol] 32.0 g/dL Normal 32-36 [facility] Comment on above: Performed By: #### L 100.0100, L500.4050 ####[facility] [address] [place], [address] MCV (RBC) [Entitic vol] 89.5 fL Normal 81-99 [facility] Comment on above: Performed By: #### L 100.0100, L500.4050 ####[facility] [address] [place], [address] Monocytes/100 WBC (Bld) 5.8 % Normal 0-10 [facility] Comment on above: Performed By: #### L 100.0100, L500.4050 ####[facility] [address] [place], [address] Neutrophils/100 WBC (Bld) 84.8 % High 47-70 [facility] Comment on above: Performed By: #### L 100.0100, L500.4050 ####[facility] [address] [place], [address] Nucleated RBC (Bld) [#/Vol] 0 10*3/uL Normal 0-5 [facility] Comment on above: Performed By: #### L 100.0100, L500.4050 ####[facility] [address] [place], [address] Platelet mean volume (Bld) [Entitic vol] 8.4 fL Normal 6.2-12.0 [facility] Comment on above: Performed By: #### L 100.0100, L500.4050 ####[facility] [address] [place], [address] Platelets (Bld) [#/Vol] 220 10*3/uL Normal 150-450 [facility] Comment on above: Performed By: #### L 100.0100, L500.4050 ####[facility] [address] [place], [address] RBC (Bld) [#/Vol] 3.91 10*6/uL Low 4.2-5.4 [facility] Comment on above: Performed By: #### L 100.0100, L500.4050 ####[facility] [address] [place], [address] RDW SD 61.9 fl High 35.1-43.9 [facility] Comment on above: Performed By: #### L 100.0100, L500.4050 ####[facility] [address] [place], [address] WBC (Bld) [#/Vol] 11.1 10*3/uL High 4.4-11.0 [facility] Comment on above: Performed By: #### L 100.0100, L500.4050 ####[facility] [address] [place], [address] Absolute Neut Normal 2.0-7.7 [facility] Comment on above: Result Comment: Canc elled via OM: Order cancelled - Patient discharged Performed By: #### L 100.0100, L500.2500 ####[facility] [address] [place], [address] HCT Normal 37-47 [facility] Comment on above: Result Comment: Canc elled via OM: Order cancelled - Patient discharged Performed By: #### L 100.0100, L500.2500 ####[facility] [address] [place], [address] HGB Normal 12.0-15.0 [facility] Comment on above: Result Comment: Canc elled via OM: Order cancelled - Patient discharged Performed By: #### L 100.0100, L500.2500 ####[facility] [address] [place], [address] MCH Normal 27.0-32.0 [facility] Comment on above: Result Comment: Canc elled via OM: Order cancelled - Patient discharged Performed By: #### L 100.0100, L500.2500 ####[facility] [address] [place], [address] MCHC Normal 32-36 [facility] Comment on above: Result Comment: Canc elled via OM: Order cancelled - Patient discharged Performed By: #### L 100.0100, L500.2500 ####[facility] [address] [place], [address] MCV Normal 81-99 [facility] Comment on above: Result Comment: Canc elled via OM: Order cancelled - Patient discharged Performed By: #### L 100.0100, L500.2500 ####[facility] [address] [place], [address] NEUT% Normal 47-70 [facility] Comment on above: Result Comment: Canc elled via OM: Order cancelled - Patient discharged Performed By: #### L 100.0100, L500.2500 ####[facility] [address] [place], [address] PLT Normal 150-450 [facility] Comment on above: Result Comment: Canc elled via OM: Order cancelled - Patient discharged Performed By: #### L 100.0100, L500.2500 ####[facility] [address] [place], [address] RBC Normal 4.2-5.4 [facility] Comment on above: Result Comment: Canc elled via OM: Order cancelled - Patient discharged Performed By: #### L 100.0100, L500.2500 ####[facility] [address] [place], [address] RDW CV Normal 11.6-14.6 [facility] Comment on above: Result Comment: Canc elled via OM: Order cancelled - Patient discharged Performed By: #### L 100.0100, L500.2500 ####[facility] [address] [place], [address] RDW SD Normal 35.1-43.9 [facility] Comment on above: Result Comment: Canc elled via OM: Order cancelled - Patient discharged Performed By: #### L 100.0100, L500.2500 ####[facility] [address] [place], [address] WBC Normal 4.4-11.0 [facility] Comment on above: Result Comment: Canc elled via OM: Order cancelled - Patient discharged Performed By: #### L 100.0100, L500.2500 ####[facility] [address] [place], [address] Colonoscopy Reporton 025 Colonoscopy Report Normal [facility] Comprehensive Metabolic Prof ilon 03-04-2024 Albumin [Mass/Vol] 2.5 g/dL Low 3.2-5.0 [facility] Comment on above: Performed By: #### L 100.0100, L500.4050 ####[facility] [address] [place], [address] Albumin/Globulin [Mass ratio] 0.8 {ratio} Low 0.9-2.4 [facility] Comment on above: Performed By: #### L 100.0100, L500.4050 ####[facility] [address] [place], [address] ALK P 69 U/L Normal 45-117 [facility] Comment on above: Performed By: #### L 100.0100, L500.4050 ####[facility] [address] [place], [address] ALT [Catalytic activity/Vol] 45 U/L Normal 13-56 [facility] Comment on above: Performed By: #### L 100.0100, L500.4050 ####[facility] [address] [place], [address] AST [Catalytic activity/Vol] 26 U/L Normal 15-37 [facility] Comment on above: Performed By: #### L 100.0100, L500.4050 ####[facility] [address] [place], [address] Bilirubin [Mass/Vol] 1.40 mg/dL High 0.20-1.00 [facility] Comment on above: Result Comment: For patients on eltrombopag therapy, use of Dimension [place] TBIL is not recommended. Performed By: #### L 100.0100, L500.4050 ####[facility] [address] [place], [address] BUN/CRE 10.1 RATIO Normal 10-20 [facility] Comment on above: Performed By: #### L 100.0100, L500.4050 ####[facility] [address] [place], [address] CA,Total 8.4 mg/dL Low 8.5-10.1 [facility] Comment on above: Performed By: #### L 100.0100, L500.4050 ####[facility] [address] [place], [address] Chloride [Moles/Vol] 116 mmol/L High 98-107 [facility] Comment on above: Performed By: #### L 100.0100, L500.4050 ####[facility] [address] [place], [address] CO2 [Moles/Vol] 18.0 mmol/L Low 21.0-32.0 [facility] Comment on above: Performed By: #### L 100.0100, L500.4050 ####[facility] [address] [place], [address] Creatinine [Mass/Vol] 1.09 mg/dL High 0.55-1.02 [facility] Comment on above: Result Comment: The validity of the calculated GFR GFRAA in patients over70 years has not been determined. Clinical correlation isessential. Performed By: #### L 100.0100, L500.4050 ####[facility] [address] [place], [address] ECRCL 25.79 ml/min Normal [facility] Comment on above: Performed By: #### L 100.0100, L500.4050 ####[facility] [address] [place], [address] EST GFR - AA 61 mL/min Normal >60 [facility] Comment on above: Result Comment: Afri can Lebanese GFR Calc Performed By: #### L 100.0100, L500.4050 ####[facility] [address] [place], [address] GAP 7 Normal 5-15 [facility] Comment on above: Performed By: #### L 100.0100, L500.4050 ####[facility] [address] [place], [address] GFR/1.73 sq M.predicted among non-blacks MDRD (S/P/Bld) [Vol rate/Area] 51 mL/min/{1.73_m2} Low >60 [facility] Comment on above: Result Comment: Non- GFR Calc Performed By: #### L 100.0100, L500.4050 ####[facility] [address] [place], [address] Globulin (S) [Mass/Vol] 3.3 g/dL Normal 2.2-4.2 [facility] Comment on above: Performed By: #### L 100.0100, L500.4050 ####[facility] [address] [place], [address] Glucose [Mass/Vol] 121 mg/dL High 74-106 [facility] Comment on above: Result Comment: Fast ing Glucose result from 100 to 125 mg/dLsuggests IMPAIRED HOMEOSTASIS per A.D.A. criteria. Performed By: #### L 100.0100, L500.4050 ####[facility] [address] [place], [address] Potassium [Moles/Vol] 4.1 mmol/L Normal 3.5-5.1 [facility] Comment on above: Performed By: #### L 100.0100, L500.4050 ####[facility] [address] [place], [address] Sodium [Moles/Vol] 140 mmol/L Normal 136-145 [facility] Comment on above: Performed By: #### L 100.0100, L500.4050 ####[facility] [address] [place], [address] T PROT 5.8 g/dL Low 6.4-8.2 [facility] Comment on above: Performed By: #### L 100.0100, L500.4050 ####[facility] [address] [place], [address] Urea nitrogen [Mass/Vol] 11 mg/dL Normal 7-18 [facility] Comment on above: Performed By: #### L 100.0100, L500.4050 ####[facility] [address] [place], [address] MR/PN.GIon 03-04-2024 MR/PN.GI Normal [facility] MR/POSTOP.ANEon 03-04-2024 MR/POSTOP.ANE Normal [facility] MR/KLYVKAKM7ly 03-04-2024 MR/POSTOPAN2 Normal [facility] Surgery Specimen Level Joshua 03-04-2024 Surgery Specimen Level IV Normal [facility] Comment on above: Performed By: #### P SUIV ####[facility] [address] [place], [address] BRCon 03-03-2024 RC Normal [facility] Comment on above: Result Comment: [id number] AP RC TRANSFUSED 03/03/24 [id number] AP RC TRANSFUSED 03/03/24 1213 Performed By: #### B RC, BTS ####[facility] [address] [place], [address] CBC W/Diff, Automatedon - Absolute Lymph 0.74 X10 3/uL Low 0.83-4.51 [facility] Comment on above: Performed By: #### L 500.4050, L100.0100 ####[facility] [address] [place], [address] Absolute Neut 3.4 X10 3/uL Normal 2.0-7.7 [facility] Comment on above: Performed By: #### L 500.4050, L100.0100 ####[facility] [address] [place], [address] Basophils/100 WBC (Bld) 0.4 % Normal 0-1 [facility] Comment on above: Performed By: #### L 500.4050, L100.0100 ####[facility] [address] [place], [address] Eosinophils/100 WBC (Bld) 6.4 % High 0-5 [facility] Comment on above: Performed By: #### L 500.4050, L100.0100 ####[facility] [address] [place], [address] Erythrocyte distribution width (RBC) [Ratio] 16.2 % High 11.6-14.6 [facility] Comment on above: Performed By: #### L 500.4050, L100.0100 ####[facility] [address] [place], [address] Hematocrit (Bld) [Volume fraction] 21.4 % Low 37-47 [facility] Comment on above: Performed By: #### L 500.4050, L100.0100 ####[facility] [address] [place], [address] Hemoglobin (Bld) [Mass/Vol] 6.5 g/dL Low 12.0-15.0 [facility] Comment on above: Performed By: #### L 500.4050, L100.0100 ####[facility] [address] [place], [address] IG% 1.000 High 0.0-0.9 [facility] Comment on above: Result Comment: IG% - Immature Granulocytes (promyelocytes, myelocytes andmetamyelocytes) > 1% indicates that a LEFT SHIFT is Present. Performed By: #### L 500.4050, L100.0100 ####[facility] [address] [place], [address] Lymphocytes/100 WBC (Bld) 14.8 % Low 19-41 [facility] Comment on above: Performed By: #### L 500.4050, L100.0100 ####[facility] [address] [place], [address] MCH (RBC) [Entitic mass] 30.0 pg Normal 27.0-32.0 [facility] Comment on above: Performed By: #### L 500.4050, L100.0100 ####[facility] [address] [place], [address] MCHC (RBC) [Mass/Vol] 30.4 g/dL Low 32-36 [facility] Comment on above: Performed By: #### L 500.4050, L100.0100 ####[facility] [address] [place], [address] MCV (RBC) [Entitic vol] 98.6 fL Normal 81-99 [facility] Comment on above: Performed By: #### L 500.4050, L100.0100 ####[facility] [address] [place], [address] Monocytes/100 WBC (Bld) 9.4 % Normal 0-10 [facility] Comment on above: Performed By: #### L 500.4050, L100.0100 ####[facility] [address] [place], [address] Neutrophils/100 WBC (Bld) 68.0 % Normal 47-70 [facility] Comment on above: Performed By: #### L 500.4050, L100.0100 ####[facility] [address] [place], [address] Nucleated RBC (Bld) [#/Vol] 0 10*3/uL Normal 0-5 [facility] Comment on above: Performed By: #### L 500.4050, L100.0100 ####[facility] [address] [place], [address] Platelet mean volume (Bld) [Entitic vol] 8.9 fL Normal 6.2-12.0 [facility] Comment on above: Performed By: #### L 500.4050, L100.0100 ####[facility] [address] [place], [address] Platelets (Bld) [#/Vol] 175 10*3/uL Normal 150-450 [facility] Comment on above: Performed By: #### L 500.4050, L100.0100 ####[facility] [address] [place], [address] RBC (Bld) [#/Vol] 2.17 10*6/uL Low 4.2-5.4 [facility] Comment on above: Performed By: #### L 500.4050, L100.0100 ####[facility] [address] [place], [address] RDW SD 58.2 fl High 35.1-43.9 [facility] Comment on above: Performed By: #### L 500.4050, L100.0100 ####[facility] [address] [place], [address] WBC (Bld) [#/Vol] 5.0 10*3/uL Normal 4.4-11.0 [facility] Comment on above: Performed By: #### L 500.4050, L100.0100 ####[facility] [address] [place], [address] Comprehensive Metabolic [facility] 03-03-2024 Albumin [Mass/Vol] 2.1 g/dL Low 3.2-5.0 [facility] Comment on above: Performed By: #### L 500.4050, L100.0100 ####[facility] [address] [place], [address] Albumin/Globulin [Mass ratio] 0.8 {ratio} Low 0.9-2.4 [facility] Comment on above: Performed By: #### L 500.4050, L100.0100 ####[facility] [address] [place], [address] ALK P 49 U/L Normal 45-117 [facility] Comment on above: Performed By: #### L 500.4050, L100.0100 ####[facility] [address] [place], [address] ALT [Catalytic activity/Vol] 36 U/L Normal 13-56 [facility] Comment on above: Performed By: #### L 500.4050, L100.0100 ####[facility] [address] [place], [address] AST [Catalytic activity/Vol] 23 U/L Normal 15-37 [facility] Comment on above: Performed By: #### L 500.4050, L100.0100 ####[facility] [address] [place], [address] Bilirubin [Mass/Vol] 0.30 mg/dL Normal 0.20-1.00 [facility] Comment on above: Result Comment: For patients on eltrombopag therapy, use of Dimension [place] TBIL is not recommended. Performed By: #### L 500.4050, L100.0100 ####[facility] [address] [place], [address] BUN/CRE 18.1 RATIO Normal 10-20 [facility] Comment on above: Performed By: #### L 500.4050, L100.0100 ####[facility] [address] [place], [address] CA,Total 7.3 mg/dL Low 8.5-10.1 [facility] Comment on above: Performed By: #### L 500.4050, L100.0100 ####[facility] [address] [place], [address] Chloride [Moles/Vol] 118 mmol/L High 98-107 [facility] Comment on above: Performed By: #### L 500.4050, L100.0100 ####[facility] [address] [place], [address] CO2 [Moles/Vol] 18.0 mmol/L Low 21.0-32.0 [facility] Comment on above: Performed By: #### L 500.4050, L100.0100 ####[facility] [address] [place], [address] Creatinine [Mass/Vol] 1.00 mg/dL Normal 0.55-1.02 [facility] Comment on above: Result Comment: The validity of the calculated GFR GFRAA in patients over70 years has not been determined. Clinical correlation isessential. Performed By: #### L 500.4050, L100.0100 ####[facility] [address] [place], [address] ECRCL 28.11 ml/min Normal [facility] Comment on above: Performed By: #### L 500.4050, L100.0100 ####[facility] [address] [place], [address] EST GFR - AA 68 mL/min Normal >60 [facility] Comment on above: Result Comment: Afri can Lebanese GFR Calc Performed By: #### L 500.4050, L100.0100 ####[facility] [address] [place], [address] GAP 7 Normal 5-15 [facility] Comment on above: Performed By: #### L 500.4050, L100.0100 ####[facility] [address] [place], [address] GFR/1.73 sq M.predicted among non-blacks MDRD (S/P/Bld) [Vol rate/Area] 56 mL/min/{1.73_m2} Low >60 [facility] Comment on above: Result Comment: Non- GFR Calc Performed By: #### L 500.4050, L100.0100 ####[facility] [address] [place], [address] Globulin (S) [Mass/Vol] 2.5 g/dL Normal 2.2-4.2 [facility] Comment on above: Performed By: #### L 500.4050, L100.0100 ####[facility] [address] [place], [address] Glucose [Mass/Vol] 79 mg/dL Normal 74-106 [facility] Comment on above: Performed By: #### L 500.4050, L100.0100 ####[facility] [address] [place], [address] Potassium [Moles/Vol] 4.7 mmol/L Normal 3.5-5.1 [facility] Comment on above: Performed By: #### L 500.4050, L100.0100 ####[facility] [address] [place], [address] Sodium [Moles/Vol] 142 mmol/L Normal 136-145 [facility] Comment on above: Performed By: #### L 500.4050, L100.0100 ####[facility] [address] [place], [address] T PROT 4.6 g/dL Low 6.4-8.2 [facility] Comment on above: Performed By: #### L 500.4050, L100.0100 ####[facility] [address] [place], [address] Urea nitrogen [Mass/Vol] 18 mg/dL Normal 7-18 [facility] Comment on above: Performed By: #### L 500.4050, L100.0100 ####[facility] [address] [place], [address] MR/PN.GIon 03-03-2024 MR/PN.GI Normal [facility] Type AND Screenon 03-03-2024 ABO and Rh group Nom (Bld) Blood group A Rh(D) positive Normal [facility] Comment on above: Order Comment: CMV N EG? NNumber of units to transfuse: 2Reason for Ordering Blood: AcuteAre the blood/blood products to be transfused? YIs the patient having/had surgery? NNWhen ReadyNYA Performed By: #### B RC, BTS ####[facility] [address] [place], [address] CBC W/Diff, Automatedon 02-10 Absolute Lymph 0.96 X10 3/uL Normal 0.83-4.51 [facility] Comment on above: Performed By: #### L 100.0100, L500.4050 ####[facility] [address] [place], [address] Absolute Neut 4.2 X10 3/uL Normal 2.0-7.7 [facility] Comment on above: Performed By: #### L 100.0100, L500.4050 ####[facility] [address] [place], [address] Basophils/100 WBC (Bld) 0.3 % Normal 0-1 [facility] Comment on above: Performed By: #### L 100.0100, L500.4050 ####[facility] [address] [place], [address] Eosinophils/100 WBC (Bld) 6.2 % High 0-5 [facility] Comment on above: Performed By: #### L 100.0100, L500.4050 ####[facility] [address] [place], [address] Erythrocyte distribution width (RBC) [Ratio] 16.2 % High 11.6-14.6 [facility] Comment on above: Performed By: #### L 100.0100, L500.4050 ####[facility] [address] [place], [address] Hematocrit (Bld) [Volume fraction] 22.9 % Low 37-47 [facility] Comment on above: Performed By: #### L 100.0100, L500.4050 ####[facility] [address] [place], [address] Hemoglobin (Bld) [Mass/Vol] 7.1 g/dL Low 12.0-15.0 [facility] Comment on above: Performed By: #### L 100.0100, L500.4050 ####[facility] [address] [place], [address] IG% 0.600 Normal 0.0-0.9 [facility] Comment on above: Result Comment: IG% - Immature Granulocytes (promyelocytes, myelocytes andmetamyelocytes) > 1% indicates that a LEFT SHIFT is Present. Performed By: #### L 100.0100, L500.4050 ####[facility] [address] [place], [address] Lymphocytes/100 WBC (Bld) 15.6 % Low 19-41 [facility] Comment on above: Performed By: #### L 100.0100, L500.4050 ####[facility] [address] [place], [address] MCH (RBC) [Entitic mass] 30.6 pg Normal 27.0-32.0 [facility] Comment on above: Performed By: #### L 100.0100, L500.4050 ####[facility] [address] [place], [address] MCHC (RBC) [Mass/Vol] 31.0 g/dL Low 32-36 [facility] Comment on above: Performed By: #### L 100.0100, L500.4050 ####[facility] [address] [place], [address] MCV (RBC) [Entitic vol] 98.7 fL Normal 81-99 [facility] Comment on above: Performed By: #### L 100.0100, L500.4050 ####[facility] [address] [place], [address] Monocytes/100 WBC (Bld) 9.7 % Normal 0-10 [facility] Comment on above: Performed By: #### L 100.0100, L500.4050 ####[facility] [address] [place], [address] Neutrophils/100 WBC (Bld) 67.6 % Normal 47-70 [facility] Comment on above: Performed By: #### L 100.0100, L500.4050 ####[facility] [address] [place], [address] Nucleated RBC (Bld) [#/Vol] 0 10*3/uL Normal 0-5 [facility] Comment on above: Performed By: #### L 100.0100, L500.4050 ####[facility] [address] [place], [address] Platelet mean volume (Bld) [Entitic vol] 9.0 fL Normal 6.2-12.0 [facility] Comment on above: Performed By: #### L 100.0100, L500.4050 ####[facility] [address] [place], [address] Platelets (Bld) [#/Vol] 207 10*3/uL Normal 150-450 [facility] Comment on above: Performed By: #### L 100.0100, L500.4050 ####[facility] [address] [place], [address] RBC (Bld) [#/Vol] 2.32 10*6/uL Low 4.2-5.4 [facility] Comment on above: Performed By: #### L 100.0100, L500.4050 ####[facility] [address] [place], [address] RDW SD 57.7 fl High 35.1-43.9 [facility] Comment on above: Performed By: #### L 100.0100, L500.4050 ####[facility] [address] [place], [address] WBC (Bld) [#/Vol] 6.2 10*3/uL Normal 4.4-11.0 [facility] Comment on above: Performed By: #### L 100.0100, L500.4050 ####[facility] [address] [place], [address] Comprehensive Metabolic [facility] 03-02-2024 Albumin [Mass/Vol] 2.1 g/dL Low 3.2-5.0 [facility] Comment on above: Performed By: #### L 100.0100, L500.4050 ####[facility] [address] [place], [address] Albumin/Globulin [Mass ratio] 0.8 {ratio} Low 0.9-2.4 [facility] Comment on above: Performed By: #### L 100.0100, L500.4050 ####[facility] [address] [place], [address] ALK P 57 U/L Normal 45-117 [facility] Comment on above: Performed By: #### L 100.0100, L500.4050 ####[facility] [address] [place], [address] ALT [Catalytic activity/Vol] 38 U/L Normal 13-56 [facility] Comment on above: Performed By: #### L 100.0100, L500.4050 ####[facility] [address] [place], [address] AST [Catalytic activity/Vol] 25 U/L Normal 15-37 [facility] Comment on above: Performed By: #### L 100.0100, L500.4050 ####[facility] [address] [place], [address] Bilirubin [Mass/Vol] 0.40 mg/dL Normal 0.20-1.00 [facility] Comment on above: Result Comment: For patients on eltrombopag therapy, use of Dimension [place] TBIL is not recommended. Performed By: #### L 100.0100, L500.4050 ####[facility] [address] [place], [address] BUN/CRE 25.2 RATIO High 10-20 [facility] Comment on above: Performed By: #### L 100.0100, L500.4050 ####[facility] [address] [place], [address] CA,Total 7.9 mg/dL Low 8.5-10.1 [facility] Comment on above: Performed By: #### L 100.0100, L500.4050 ####[facility] [address] [place], [address] Chloride [Moles/Vol] 116 mmol/L High 98-107 [facility] Comment on above: Performed By: #### L 100.0100, L500.4050 ####[facility] [address] [place], [address] CO2 [Moles/Vol] 22.0 mmol/L Normal 21.0-32.0 [facility] Comment on above: Performed By: #### L 100.0100, L500.4050 ####[facility] [address] [place], [address] Creatinine [Mass/Vol] 1.15 mg/dL High 0.55-1.02 [facility] Comment on above: Result Comment: The validity of the calculated GFR GFRAA in patients over70 years has not been determined. Clinical correlation isessential. Performed By: #### L 100.0100, L500.4050 ####[facility] [address] [place], [address] ECRCL 24.45 ml/min Normal [facility] Comment on above: Performed By: #### L 100.0100, L500.4050 ####[facility] [address] [place], [address] EST GFR - AA 58 mL/min Low >60 [facility] Comment on above: Result Comment: Afri can Lebanese GFR Calc Performed By: #### L 100.0100, L500.4050 ####[facility] [address] [place], [address] GAP 5 Normal 5-15 [facility] Comment on above: Performed By: #### L 100.0100, L500.4050 ####[facility] [address] [place], [address] GFR/1.73 sq M.predicted among non-blacks MDRD (S/P/Bld) [Vol rate/Area] 48 mL/min/{1.73_m2} Low >60 [facility] Comment on above: Result Comment: Non- GFR Calc Performed By: #### L 100.0100, L500.4050 ####[facility] [address] [place], [address] Globulin (S) [Mass/Vol] 2.6 g/dL Normal 2.2-4.2 [facility] Comment on above: Performed By: #### L 100.0100, L500.4050 ####[facility] [address] [place], [address] Glucose [Mass/Vol] 61 mg/dL Low 74-106 [facility] Comment on above: Performed By: #### L 100.0100, L500.4050 ####[facility] [address] [place], [address] Potassium [Moles/Vol] 5.0 mmol/L Normal 3.5-5.1 [facility] Comment on above: Performed By: #### L 100.0100, L500.4050 ####[facility] [address] [place], [address] Sodium [Moles/Vol] 142 mmol/L Normal 136-145 [facility] Comment on above: Performed By: #### L 100.0100, L500.4050 ####[facility] [address] [place], [address] T PROT 4.7 g/dL Low 6.4-8.2 [facility] Comment on above: Performed By: #### L 100.0100, L500.4050 ####[facility] [address] [place], [address] Urea nitrogen [Mass/Vol] 29 mg/dL High 7-18 [facility] Comment on above: Performed By: #### L 100.0100, L500.4050 ####[facility] [address] [place], [address] Basic Metabolic Profile (BMP )on 03-01-2024 BUN/CRE 25.2 RATIO High 10-20 [facility] Comment on above: Performed By: #### L 500.2500, L501.5200, L100.0100 ####[facility] [address] [place], [address] CA,Total 7.9 mg/dL Low 8.5-10.1 [facility] Comment on above: Performed By: #### L 500.2500, L501.5200, L100.0100 ####[facility] [address] [place], [address] Chloride [Moles/Vol] 113 mmol/L High 98-107 [facility] Comment on above: Performed By: #### L 500.2500, L501.5200, L100.0100 ####[facility] [address] [place], [address] CO2 [Moles/Vol] 23.0 mmol/L Normal 21.0-32.0 [facility] Comment on above: Performed By: #### L 500.2500, L501.5200, L100.0100 ####[facility] [address] [place], [address] Creatinine [Mass/Vol] 1.31 mg/dL High 0.55-1.02 [facility] Comment on above: Result Comment: The validity of the calculated GFR GFRAA in patients over70 years has not been determined. Clinical correlation isessential. Performed By: #### L 500.2500, L501.5200, L100.0100 ####[facility] [address] [place], [address] ECRCL 21.46 ml/min Normal [facility] Comment on above: Performed By: #### L 500.2500, L501.5200, L100.0100 ####[facility] [address] [place], [address] EST GFR - AA 49 mL/min Low >60 [facility] Comment on above: Result Comment: Afri can Lebanese GFR Calc Performed By: #### L 500.2500, L501.5200, L100.0100 ####[facility] [address] [place], [address] GAP 5 Normal 5-15 [facility] Comment on above: Performed By: #### L 500.2500, L501.5200, L100.0100 ####[facility] [address] [place], [address] GFR/1.73 sq M.predicted among non-blacks MDRD (S/P/Bld) [Vol rate/Area] 41 mL/min/{1.73_m2} Low >60 [facility] Comment on above: Result Comment: Non- GFR Calc Performed By: #### L 500.2500, L501.5200, L100.0100 ####[facility] [address] [place], [address] Glucose [Mass/Vol] 77 mg/dL Normal 74-106 [facility] Comment on above: Performed By: #### L 500.2500, L501.5200, L100.0100 ####[facility] [address] [place], [address] Potassium [Moles/Vol] 5.3 mmol/L High 3.5-5.1 [facility] Comment on above: Performed By: #### L 500.2500, L501.5200, L100.0100 ####[facility] [address] [place], [address] Sodium [Moles/Vol] 141 mmol/L Normal 136-145 [facility] Comment on above: Performed By: #### L 500.2500, L501.5200, L100.0100 ####[facility] [address] [place], [address] Urea nitrogen [Mass/Vol] 33 mg/dL High 7-18 [facility] Comment on above: Performed By: #### L 500.2500, L501.5200, L100.0100 ####[facility] [address] [place], [address] CBC W/Diff, Automatedon -2 Absolute Lymph 0.68 X10 3/uL Low 0.83-4.51 [facility] Comment on above: Performed By: #### L 500.2500, L501.5200, L100.0100 ####[facility] [address] [place], [address] Absolute Neut 6.0 X10 3/uL Normal 2.0-7.7 [facility] Comment on above: Performed By: #### L 500.2500, L501.5200, L100.0100 ####[facility] [address] [place], [address] Basophils/100 WBC (Bld) 0.5 % Normal 0-1 [facility] Comment on above: Performed By: #### L 500.2500, L501.5200, L100.0100 ####[facility] [address] [place], [address] Eosinophils/100 WBC (Bld) 3.7 % Normal 0-5 [facility] Comment on above: Performed By: #### L 500.2500, L501.5200, L100.0100 ####[facility] [address] [place], [address] Erythrocyte distribution width (RBC) [Ratio] 15.8 % High 11.6-14.6 [facility] Comment on above: Performed By: #### L 500.2500, L501.5200, L100.0100 ####[facility] [address] [place], [address] Hematocrit (Bld) [Volume fraction] 27.6 % Low 37-47 [facility] Comment on above: Performed By: #### L 500.2500, L501.5200, L100.0100 ####[facility] [address] [place], [address] Hemoglobin (Bld) [Mass/Vol] 8.5 g/dL Low 12.0-15.0 [facility] Comment on above: Performed By: #### L 500.2500, L501.5200, L100.0100 ####[facility] [address] [place], [address] IG% 1.000 High 0.0-0.9 [facility] Comment on above: Result Comment: IG% - Immature Granulocytes (promyelocytes, myelocytes andmetamyelocytes) > 1% indicates that a LEFT SHIFT is Present. Performed By: #### L 500.2500, L501.5200, L100.0100 ####[facility] [address] [place], [address] Lymphocytes/100 WBC (Bld) 8.7 % Low 19-41 [facility] Comment on above: Performed By: #### L 500.2500, L501.5200, L100.0100 ####[facility] [address] [place], [address] MCH (RBC) [Entitic mass] 30.0 pg Normal 27.0-32.0 [facility] Comment on above: Performed By: #### L 500.2500, L501.5200, L100.0100 ####[facility] [address] [place], [address] MCHC (RBC) [Mass/Vol] 30.8 g/dL Low 32-36 [facility] Comment on above: Performed By: #### L 500.2500, L501.5200, L100.0100 ####[facility] [address] [place], [address] MCV (RBC) [Entitic vol] 97.5 fL Normal 81-99 [facility] Comment on above: Performed By: #### L 500.2500, L501.5200, L100.0100 ####[facility] [address] [place], [address] Monocytes/100 WBC (Bld) 9.3 % Normal 0-10 [facility] Comment on above: Performed By: #### L 500.2500, L501.5200, L100.0100 ####[facility] [address] [place], [address] Neutrophils/100 WBC (Bld) 76.8 % High 47-70 [facility] Comment on above: Performed By: #### L 500.2500, L501.5200, L100.0100 ####[facility] [address] [place], [address] Nucleated RBC (Bld) [#/Vol] 0 10*3/uL Normal 0-5 [facility] Comment on above: Performed By: #### L 500.2500, L501.5200, L100.0100 ####[facility] [address] [place], [address] Platelet mean volume (Bld) [Entitic vol] 8.6 fL Normal 6.2-12.0 [facility] Comment on above: Performed By: #### L 500.2500, L501.5200, L100.0100 ####[facility] [address] [place], [address] Platelets (Bld) [#/Vol] 226 10*3/uL Normal 150-450 [facility] Comment on above: Performed By: #### L 500.2500, L501.5200, L100.0100 ####[facility] [address] [place], [address] RBC (Bld) [#/Vol] 2.83 10*6/uL Low 4.2-5.4 [facility] Comment on above: Performed By: #### L 500.2500, L501.5200, L100.0100 ####[facility] [address] [place], [address] RDW SD 56.6 fl High 35.1-43.9 [facility] Comment on above: Performed By: #### L 500.2500, L501.5200, L100.0100 ####[facility] [address] [place], [address] WBC (Bld) [#/Vol] 7.8 10*3/uL Normal 4.4-11.0 [facility] Comment on above: Performed By: #### L 500.2500, L501.5200, L100.0100 ####[facility] [address] [place], [address] EGD Reporton 03-01-2024 EGD Report Normal [facility] MR/PN.GIon 03-01-2024 MR/PN.GI Normal [facility] MR/POSTOP.ANEon 03-01-2024 MR/POSTOP.ANE Normal [facility] MR/VHQJZOEO7rj 03-01-2024 MR/POSTOPAN2 Normal [facility] MRCP Abdomen without Contras ton 03-01-2024 MRCP Abdomen without Contrast Normal [facility] Magnesiumon 03-01-2024 Magnesium [Mass/Vol] 2.2 mg/dL Normal 1.6-2.6 [facility] Comment on above: Performed By: #### L 500.2500, L501.5200, L100.0100 ####[facility] [address] [place], [address] 12 Lead EKGon 02-29-2024 12 Lead EKG Normal [facility] Abdomen/Pelvis WITH Contrast on 02-29-2024 Abdomen/Pelvis WITH Contrast Normal [facility] BRCon 02-29-2024 RC Normal [facility] Comment on above: Result Comment: [id number] AP RC XM COMPATIBLE Performed By: #### B RC, BTS ####[facility] [address] [place], [address] Bacteria LM.HPF (Urine sed) [#/Area]Ordered By: Vasile Hernández on 02-29-2024 Urine sediment bacteria count by microscopy (number/high power field) RARE /hpf None Seen [facility] Basic Metabolic Profile (BMP )on 02-29-2024 BUN Normal 7-18 [facility] Comment on above: Result Comment: [facility] ENT WAS SENT TO ED. LABS DONE THERE Performed By: #### L 500.2500, L100.0100 ####[facility] [address] [place], [address] BUN/CRE Normal 10-20 [facility] Comment on above: Result Comment: [facility] E[facility] WAS SENT TO ED. LABS DONE THERE Performed By: #### L 500.2500, L100.0100 ####[facility] [address] [place], [address] CA,Total Normal 8.5-10.1 [facility] Comment on above: Result Comment: [facility] E[facility] WAS SENT TO ED. LABS DONE THERE Performed By: #### L 500.2500, L100.0100 ####[facility] [address] [place], [address] CL Normal 98-107 [facility] Comment on above: Result Comment: [facility] E[facility] WAS SENT TO ED. LABS DONE THERE Performed By: #### L 500.2500, L100.0100 ####[facility] [address] [place], [address] CO2 Normal 21.0-32.0 [facility] Comment on above: Result Comment: [facility] E[facility] WAS SENT TO ED. LABS DONE THERE Performed By: #### L 500.2500, L100.0100 ####[facility] [address] [place], [address] CREAT,SERUM Normal 0.55-1.02 [facility] Comment on above: Result Comment: [facility] E[facility] WAS SENT TO ED. LABS DONE THERE Performed By: #### L 500.2500, L100.0100 ####[facility] [address] [place], [address] EST GFR Normal >60 [facility] Comment on above: Result Comment: [facility] ENT WAS SENT TO ED. LABS DONE THERE Performed By: #### L 500.2500, L100.0100 ####[facility] [address] [place], [address] EST GFR - AA Normal >60 [facility] Comment on above: Result Comment: [facility] ENT WAS SENT TO ED. LABS DONE THERE Performed By: #### L 500.2500, L100.0100 ####[facility] [address] [place], [address] GAP Normal 5-15 [facility] Comment on above: Result Comment: [facility] ENT WAS SENT TO ED. LABS DONE THERE Performed By: #### L 500.2500, L100.0100 ####[facility] [address] [place], [address] GLU Normal 74-106 [facility] Comment on above: Result Comment: [facility] ENT WAS SENT TO ED. LABS DONE THERE Performed By: #### L 500.2500, L100.0100 ####[facility] [address] [place], [address] Potassium Normal 3.5-5.1 [facility] Comment on above: Result Comment: [facility] ENT WAS SENT TO ED. LABS DONE THERE Performed By: #### L 500.2500, L100.0100 ####[facility] [address] [place], [address] Basic Metabolic Profile (BMP) Normal 136-145 [facility] Comment on above: Result Comment: [facility] ENT WAS SENT TO ED. LABS DONE THERE Performed By: #### L 500.2500, L100.0100 ####[facility] [address] [place], [address] Bedside Glucoseon 02-29-2024 FINGERSTICK GLU 97 mg/dL Normal 74-106 [facility] Comment on above: Result Comment: JESSICA HANSON OF PATIENT CARE PER NURSING PROTOCOL Performed By: #### L 501.080 ####[facility] [address] [place], [address] Brain/Head without Contrasto n 02-29-2024 Brain/Head without Contrast Normal [facility] CBC W/Diff, Automatedon 02-10 Absolute Lymph 0.86 X10 3/uL Normal 0.83-4.51 [facility] Comment on above: Performed By: #### L 501.4020, L100.0100, L501.2450, L500.4050 ####[facility] [address] [place], [address] Absolute Neut 6.0 X10 3/uL Normal 2.0-7.7 [facility] Comment on above: Performed By: #### L 501.4020, L100.0100, L501.2450, L500.4050 ####[facility] [address] [place], [address] Basophils/100 WBC (Bld) 0.5 % Normal 0-1 [facility] Comment on above: Performed By: #### L 501.4020, L100.0100, L501.2450, L500.4050 ####[facility] [address] [place], [address] Eosinophils/100 WBC (Bld) 2.4 % Normal 0-5 [facility] Comment on above: Performed By: #### L 501.4020, L100.0100, L501.2450, L500.4050 ####[facility] [address] [place], [address] Erythrocyte distribution width (RBC) [Ratio] 15.8 % High 11.6-14.6 [facility] Comment on above: Performed By: #### L 501.4020, L100.0100, L501.2450, L500.4050 ####[facility] [address] [place], [address] Hematocrit (Bld) [Volume fraction] 29.6 % Low 37-47 [facility] Comment on above: Performed By: #### L 501.4020, L100.0100, L501.2450, L500.4050 ####[facility] [address] [place], [address] Hemoglobin (Bld) [Mass/Vol] 9.6 g/dL Low 12.0-15.0 [facility] Comment on above: Performed By: #### L 501.4020, L100.0100, L501.2450, L500.4050 ####[facility] [address] [place], [address] IG% 2.400 High 0.0-0.9 [facility] Comment on above: Result Comment: IG% - Immature Granulocytes (promyelocytes, myelocytes andmetamyelocytes) > 1% indicates that a LEFT SHIFT is Present. Performed By: #### L 501.4020, L100.0100, L501.2450, L500.4050 ####[facility] [address] [place], [address] Lymphocytes/100 WBC (Bld) 10.9 % Low 19-41 [facility] Comment on above: Performed By: #### L 501.4020, L100.0100, L501.2450, L500.4050 ####[facility] [address] [place], [address] MCH (RBC) [Entitic mass] 31.4 pg Normal 27.0-32.0 [facility] Comment on above: Performed By: #### L 501.4020, L100.0100, L501.2450, L500.4050 ####[facility] [address] [place], [address] MCHC (RBC) [Mass/Vol] 32.4 g/dL Normal 32-36 [facility] Comment on above: Performed By: #### L 501.4020, L100.0100, L501.2450, L500.4050 ####[facility] [address] [place], [address] MCV (RBC) [Entitic vol] 96.7 fL Normal 81-99 [facility] Comment on above: Performed By: #### L 501.4020, L100.0100, L501.2450, L500.4050 ####[facility] [address] [place], [address] Monocytes/100 WBC (Bld) 7.0 % Normal 0-10 [facility] Comment on above: Performed By: #### L 501.4020, L100.0100, L501.2450, L500.4050 ####[facility] [address] [place], [address] Neutrophils/100 WBC (Bld) 76.8 % High 47-70 [facility] Comment on above: Performed By: #### L 501.4020, L100.0100, L501.2450, L500.4050 ####[facility] [address] [place], [address] Nucleated RBC (Bld) [#/Vol] 0 10*3/uL Normal 0-5 [facility] Comment on above: Performed By: #### L 501.4020, L100.0100, L501.2450, L500.4050 ####[facility] [address] [place], [address] Platelet mean volume (Bld) [Entitic vol] 9.0 fL Normal 6.2-12.0 [facility] Comment on above: Performed By: #### L 501.4020, L100.0100, L501.2450, L500.4050 ####[facility] [address] [place], [address] Platelets (Bld) [#/Vol] 267 10*3/uL Normal 150-450 [facility] Comment on above: Performed By: #### L 501.4020, L100.0100, L501.2450, L500.4050 ####[facility] [address] [place], [address] RBC (Bld) [#/Vol] 3.06 10*6/uL Low 4.2-5.4 [facility] Comment on above: Performed By: #### L 501.4020, L100.0100, L501.2450, L500.4050 ####[facility] [address] [place], [address] RDW SD 56.0 fl High 35.1-43.9 [facility] Comment on above: Performed By: #### L 501.4020, L100.0100, L501.2450, L500.4050 ####[facility] [address] [place], [address] WBC (Bld) [#/Vol] 7.9 10*3/uL Normal 4.4-11.0 [facility] Comment on above: Performed By: #### L 501.4020, L100.0100, L501.2450, L500.4050 ####[facility] [address] [place], [address] Absolute Neut Normal 2.0-7.7 [facility] Comment on above: Result Comment: [facility] ENT WAS SENT TO ED. LABS DONE THERE Performed By: #### L 500.2500, L100.0100 ####[facility] [address] [place], [address] HCT Normal 37-47 [facility] Comment on above: Result Comment: [facility] ENT WAS SENT TO ED. LABS DONE THERE Performed By: #### L 500.2500, L100.0100 ####[facility] [address] [place], [address] HGB Normal 12.0-15.0 [facility] Comment on above: Result Comment: [facility] ENT WAS SENT TO ED. LABS DONE THERE Performed By: #### L 500.2500, L100.0100 ####[facility] [address] [place], [address] MCH Normal 27.0-32.0 [facility] Comment on above: Result Comment: [facility]AN ENT WAS SENT TO ED. LABS DONE THERE Performed By: #### L 500.2500, L100.0100 ####[facility] [address] [place], [address] MCHC Normal 32-36 [facility] Comment on above: Result Comment: ADAN ENT WAS SENT TO ED. LABS DONE THERE Performed By: #### L 500.2500, L100.0100 ####[facility] [address] [place], [address] MCV Normal 81-99 [facility] Comment on above: Result Comment: ADAN ENT WAS SENT TO ED. LABS DONE THERE Performed By: #### L 500.2500, L100.0100 ####[facility] [address] [place], [address] NEUT% Normal 47-70 [facility] Comment on above: Result Comment: ADAN ENT WAS SENT TO ED. LABS DONE THERE Performed By: #### L 500.2500, L100.0100 ####[facility] [address] [place], [address] PLT Normal 150-450 [facility] Comment on above: Result Comment: ADAN ENT WAS SENT TO ED. LABS DONE THERE Performed By: #### L 500.2500, L100.0100 ####[facility] [address] [place], [address] RBC Normal 4.2-5.4 [facility] Comment on above: Result Comment: [facility] ENT WAS SENT TO ED. LABS DONE THERE Performed By: #### L 500.2500, L100.0100 ####[facility] [address] [place], [address] RDW CV Normal 11.6-14.6 [facility] Comment on above: Result Comment: ADAN ENT WAS SENT TO ED. LABS DONE THERE Performed By: #### L 500.2500, L100.0100 ####[facility] [address] [place], [address] RDW SD Normal 35.1-43.9 [facility] Comment on above: Result Comment: ADAN ENT WAS SENT TO ED. LABS DONE THERE Performed By: #### L 500.2500, L100.0100 ####[facility] [address] [place], [address] WBC Normal 4.4-11.0 [facility] Comment on above: Result Comment: [facility] ENT WAS SENT TO ED. LABS DONE THERE Performed By: #### L 500.2500, L100.0100 ####[facility] [address] [place], [address] Chest 1 View (Portable)on Chest 1 View (Portable) Normal [facility] Clarity (U)Ordered By: Meet Hernández on 02-29-2024 Urine clarity Clear Clear [facility] Color (U)Ordered By: Vasile Hernández on 02-29-2024 Urine color determination Yellow Yellow [facility] Comprehensive Metabolic Prof ilon 02-29-2024 Albumin [Mass/Vol] 2.9 g/dL Low 3.2-5.0 [facility] Comment on above: Order Comment: 'TROP ' Serial specimen #1, #2 or #3: 1 Performed By: #### L 501.4020, L100.0100, L501.2450, L500.4050 ####[facility] [address] [place], [address] Albumin/Globulin [Mass ratio] 0.8 {ratio} Low 0.9-2.4 [facility] Comment on above: Order Comment: 'TROP ' Serial specimen #1, #2 or #3: 1 Performed By: #### L 501.4020, L100.0100, L501.2450, L500.4050 ####[facility] [address] [place], [address] ALK P 81 U/L Normal 45-117 [facility] Comment on above: Order Comment: 'TROP ' Serial specimen #1, #2 or #3: 1 Performed By: #### L 501.4020, L100.0100, L501.2450, L500.4050 ####[facility] [address] [place], [address] ALT [Catalytic activity/Vol] 59 U/L High 13-56 [facility] Comment on above: Order Comment: 'TROP ' Serial specimen #1, #2 or #3: 1 Performed By: #### L 501.4020, L100.0100, L501.2450, L500.4050 ####[facility] [address] [place], [address] AST [Catalytic activity/Vol] 33 U/L Normal 15-37 [facility] Comment on above: Order Comment: 'TROP ' Serial specimen #1, #2 or #3: 1 Performed By: #### L 501.4020, L100.0100, L501.2450, L500.4050 ####[facility] [address] [place], [address] Bilirubin [Mass/Vol] 0.30 mg/dL Normal 0.20-1.00 [facility] Comment on above: Order Comment: 'TROP ' Serial specimen #1, #2 or #3: 1 Result Comment: For patients on eltrombopag therapy, use of Dimension [place] TBIL is not recommended. Performed By: #### L 501.4020, L100.0100, L501.2450, L500.4050 ####[facility] [address] [place], [address] BUN/CRE 25.2 RATIO High 10-20 [facility] Comment on above: Order Comment: 'TROP ' Serial specimen #1, #2 or #3: 1 Performed By: #### L 501.4020, L100.0100, L501.2450, L500.4050 ####[facility] [address] [place], [address] CA,Total 8.8 mg/dL Normal 8.5-10.1 [facility] Comment on above: Order Comment: 'TROP ' Serial specimen #1, #2 or #3: 1 Performed By: #### L 501.4020, L100.0100, L501.2450, L500.4050 ####[facility] [address] [place], [address] Chloride [Moles/Vol] 107 mmol/L Normal 98-107 [facility] Comment on above: Order Comment: 'TROP ' Serial specimen #1, #2 or #3: 1 Performed By: #### L 501.4020, L100.0100, L501.2450, L500.4050 ####[facility] [address] [place], [address] CO2 [Moles/Vol] 24.0 mmol/L Normal 21.0-32.0 [facility] Comment on above: Order Comment: 'TROP ' Serial specimen #1, #2 or #3: 1 Performed By: #### L 501.4020, L100.0100, L501.2450, L500.4050 ####[facility] [address] [place], [address] Creatinine [Mass/Vol] 1.55 mg/dL High 0.55-1.02 [facility] Comment on above: Order Comment: 'TROP ' Serial specimen #1, #2 or #3: 1 Result Comment: The validity of the calculated GFR GFRAA in patients over70 years has not been determined. Clinical correlation isessential. Performed By: #### L 501.4020, L100.0100, L501.2450, L500.4050 ####[facility] [address] [place], [address] ECRCL 20.28 ml/min Normal [facility] Comment on above: Order Comment: 'TROP ' Serial specimen #1, #2 or #3: 1 Performed By: #### L 501.4020, L100.0100, L501.2450, L500.4050 ####[facility] [address] [place], [address] EST GFR - AA 41 mL/min Low >60 [facility] Comment on above: Order Comment: 'TROP ' Serial specimen #1, #2 or #3: 1 Result Comment: Afri can Lebanese GFR Calc Performed By: #### L 501.4020, L100.0100, L501.2450, L500.4050 ####[facility] [address] [place], [address] GAP 7 Normal 5-15 [facility] Comment on above: Order Comment: 'TROP ' Serial specimen #1, #2 or #3: 1 Performed By: #### L 501.4020, L100.0100, L501.2450, L500.4050 ####[facility] [address] [place], [address] GFR/1.73 sq M.predicted among non-blacks MDRD (S/P/Bld) [Vol rate/Area] 34 mL/min/{1.73_m2} Low >60 [facility] Comment on above: Order Comment: 'TROP ' Serial specimen #1, #2 or #3: 1 Result Comment: Non- GFR Calc Performed By: #### L 501.4020, L100.0100, L501.2450, L500.4050 ####[facility] [address] [place], [address] Globulin (S) [Mass/Vol] 3.6 g/dL Normal 2.2-4.2 [facility] Comment on above: Order Comment: 'TROP ' Serial specimen #1, #2 or #3: 1 Performed By: #### L 501.4020, L100.0100, L501.2450, L500.4050 ####[facility] [address] [place], [address] Glucose [Mass/Vol] 105 mg/dL Normal 74-106 [facility] Comment on above: Order Comment: 'TROP ' Serial specimen #1, #2 or #3: 1 Result Comment: Fast ing Glucose result from 100 to 125 mg/dLsuggests IMPAIRED HOMEOSTASIS per A.D.A. criteria. Performed By: #### L 501.4020, L100.0100, L501.2450, L500.4050 ####[facility] [address] [place], [address] Potassium [Moles/Vol] 4.6 mmol/L Normal 3.5-5.1 [facility] Comment on above: Order Comment: 'TROP ' Serial specimen #1, #2 or #3: 1 Performed By: #### L 501.4020, L100.0100, L501.2450, L500.4050 ####[facility] [address] [place], [address] Sodium [Moles/Vol] 137 mmol/L Normal 136-145 [facility] Comment on above: Order Comment: 'TROP ' Serial specimen #1, #2 or #3: 1 Performed By: #### L 501.4020, L100.0100, L501.2450, L500.4050 ####[facility] [address] [place], [address] T PROT 6.5 g/dL Normal 6.4-8.2 [facility] Comment on above: Order Comment: 'TROP ' Serial specimen #1, #2 or #3: 1 Performed By: #### L 501.4020, L100.0100, L501.2450, L500.4050 ####[facility] [address], [address] Urea nitrogen [Mass/Vol] 39 mg/dL High 7-18 [facility] Comment on above: Order Comment: 'TROP ' Serial specimen #1, #2 or #3: 1 Performed By: #### L 501.4020, L100.0100, L501.2450, L500.4050 ####[facility] [address] [place], [address] Emergency Department Summary on 02-29-2024 Emergency Department Summary Normal [facility] Glucose measurement at bedsi deOrdered By: Segundo Sultana on 02-29-2024 Glucose measurement at bedside 97 mg/dL 74-106 [facility] HH, Hemoglobin AND Hematocri ton 02-29-2024 Hematocrit (Bld) [Volume fraction] 24.4 % Low 37-47 [facility] Comment on above: Performed By: #### L 100.0600 ####[facility] [address], [address] Hemoglobin (Bld) [Mass/Vol] 7.7 g/dL Low 12.0-15.0 [facility] Comment on above: Performed By: #### L 100.0600 ####[facility] [address] [place], [address] Hematocrit Auto (Bld) [Volum e fraction]Ordered By: Segundo Sultana on 02-29-2024 Automated blood hematocrit (percentage) 24.4 % Low 37-47 [facility] Hemoglobin measurementOrdere d By: Segundo Sultana on 02-29-2024 Hemoglobin measurement 7.7 g/dL Low 12.0-15.0 [facility] Iron (Unsp spec) [Mass/Mass] Ordered By: Segundo Sultana on 02-29-2024 Iron measurement (mass/mass) 56 ug/dL 50-170 [facility] Iron saturation [Mass fracti on]Ordered By: Segundo Sultana on 02-29-2024 Serum or plasma iron saturation measurement (mass fraction) 35.0 % 15.0-55.0 [facility] Iron+Iron Binding Capacityon 02-29-2024 Iron [Mass/Vol] 56 ug/dL Normal 50-170 [facility] Comment on above: Performed By: #### L 503.6030 ####[facility] [address] [place], [address] IRON SATURATION 35.0 Normal 15.0-55.0 [facility] Comment on above: Performed By: #### L 503.6030 ####[facility] [address] [place], [address] TIBC 160 ug/dL Low 250-450 [facility] Comment on above: Performed By: #### L 503.6030 ####[facility] [address] [place], [address] L501.4020on 02-29-2024 TROPONIN-I HS 22 pg/mL Normal 3.0-54.0 [facility] Comment on above: Order Comment: 'TROP ' Serial specimen #1, #2 or #3: 1 Result Comment: Plea se Note: New Test Units and Gender Specific Reference Ranges. For more information see Policy Stat Procedure Frederick High Sensitivity Troponin (TNIH) and attachments. Performed By: #### L 501.4020, L100.0100, L501.2450, L500.4050 ####[facility] [address] [place], [address] Leukocyte esterase Test stri p Ql (U)Ordered By: Vasile Hernández on 02-29-2024 Urine leukocyte esterase detection by dipstick 25 /ul High Negative [facility] Lipaseon 02-29-2024 Lipase [Catalytic activity/Vol] 31 U/L Normal 13-75 [facility] Comment on above: Order Comment: 'TROP ' Serial specimen #1, #2 or #3: 1 Result Comment: Plea se note:LIPASE revised reference range effective 22.New Lipase methodology. Expected to produce lower valuesthan the previous assay method.NEW Reference Range: 13 - 75 U/L Performed By: #### L 501.4020, L100.0100, L501.2450, L500.4050 ####[facility] [address], [address] Lipase measurementOrdered By : Vasile Hernández on 02-29-2024 Lipase measurement 31 U/L 13-75 [facility] Lower GI hemoglobin IA Ql (S tl)Ordered By: Segundo Sultana on 02-29-2024 Stool gastrointestinal hemoglobin detection by immunologic method Positive Abnormal [facility] MR/CON.PCM.GIon 02-29-2024 MR/CON.PCM.GI Normal [facility] Protein Test strip Ql (U)Ord ered By: Vasile Hernández on 02-29-2024 Urine protein assay by test strip, semi-quantitative 15 mg/dl High Negative [facility] Specific gravity (U) [Rel de nsity]Ordered By: Vasile Hernández on 02-29-2024 Urine specific gravity measurement 1.010 1.002-1.030 [facility] Stool Occult Blood iFOBon STOB Positive Normal [facility] Comment on above: Performed By: #### M 100.7900 ####[facility] [address] [facility] [place], [place], [id number] TIBCOrdered By: Segundo Sultana on 02-29-2024 TIBC 160 ug/dL Low 250-450 [facility] Troponin IOrdered By: Vasile Hernández on 02-29-2024 Troponin I 22 pg/mL 3.0-54.0 [facility] Type AND Screenon 02-29-2024 Ab SCREEN GEL Negative Normal [facility] Comment on above: Order Comment: CMV N EG? NNumber of units to transfuse: 1Reason for Ordering Blood: AcuteAre the blood/blood products to be transfused? YIs the patient having/had surgery? Shira Loving Performed By: #### B RC, BTS ####[facility] [address] [place], [address] ABO and Rh group Nom (Bld) Blood group A Rh(D) positive Normal [facility] Comment on above: Order Comment: CMV N EG? NNumber of units to transfuse: 1Reason for Ordering Blood: AcuteAre the blood/blood products to be transfused? YIs the patient having/had surgery? NWhen ReadyNY Performed By: #### B RC, BTS ####[facility] [address] [place], [address] Urinalysis, Completeon 02-28 BACTERIA RARE Normal None Seen [facility] Comment on above: Order Comment: JORY CTOR TO SPECIFY Performed By: #### L 400.0001 ####[facility] [address] [place], [address] EPI,SQUAMOUS 0 SEEN Normal 5-10 [facility] Comment on above: Order Comment: JORY CTOR TO SPECIFY Performed By: #### L 400.0001 ####[facility] [address] [place], [address] Mucus Ql (Urine sed) 0 SEEN Normal [facility] Comment on above: Order Comment: JORY CTOR TO SPECIFY Performed By: #### L 400.0001 ####[facility] [address] [place], [address] RBC 0 SEEN Normal 0-5 [facility] Comment on above: Order Comment: JORY CTOR TO SPECIFY Performed By: #### L 400.0001 ####[facility] [address] [place], [address] WBC 0 SEEN Normal 0-5 [facility] Comment on above: Order Comment: JORY CTOR TO SPECIFY Performed By: #### L 400.0001 ####[facility] [address] [place], [address] Urine glucose detectionOrder ed By: Vasile Hernández on 02-29-2024 Urine glucose detection Normal mg/dl Normal [facility] Urine total bilirubin detect ion by test stripOrdered By: Vasile Hernández on 02-29-2024 Urine total bilirubin detection by test strip Negative Negative [facility] Vitamin B12on 02-29-2024 Cobalamin (Vitamin B12) [Mass/Vol] 877 pg/mL Normal 211-911 [facility] Comment on above: Performed By: #### L 503.0105, L506.1000 ####[facility] [address] [place], [address] Vitamin D,25 Hydroxyon 02-28 Vitamin D 25-OH 53.4 ng/mL Normal [facility] Comment on above: Result Comment: Donna min D 25(OH) Status Range Deficiency <20 ng/mL (50nmol/L) Insufficiency 20 - 30 ng/mL (50 - 75 nmol/L) Sufficiency 30 - 100 ng/mL (75 - 250 nmol/L) Toxicity >100 ng/mL (>250 nmol/L) Performed By: #### L 503.0105, L506.1000 ####[facility] [address] [place], [address] White blood cell countOrdere d By: Vasile Hernández on 02-29-2024 White blood cell count 0 SEEN /hpf [facility] pH (U)Ordered By: Lavern on 02-29-2024 Urine pH 6.0 5.0 - 8.0 [facility] 54-UX-Xttzdfm DOrdered By: Maco Sultana on 02-28-2024 09-RW-Eguxtku D 53.4 ng/mL [facility] Vitamin B12 measurementOrder ed By: Sgeundo Slutana on 02-28-2024 Vitamin B12 measurement 877 pg/mL 211-911 [facility] Prothrombin Time w/INRon INR Normal [facility] Comment on above: Result Comment: Canc elled via OM: Order cancelled - Patient discharged Performed By: #### L 300.3900 ####[facility] [address] [place], [address] PROTIME Normal 11.7-14.9 [facility] Comment on above: Result Comment: Canc elled via OM: Order cancelled - Patient discharged Performed By: #### L 300.3900 ####[facility] [address] [place], [address] Absolute neutrophil countOrd ered By: Segundo Sultana on 02-26-2024 Absolute neutrophil count 5.7 X10^3/uL 2.0-7.7 [facility] Basic Metabolic Profile (BMP )on 02-26-2024 BUN/CRE 21.2 RATIO High 10-20 [facility] Comment on above: Performed By: #### L 100.0100, L500.2500 ####[facility] [address] [place], [address] CA,Total 8.6 mg/dL Normal 8.5-10.1 [facility] Comment on above: Performed By: #### L 100.0100, L500.2500 ####[facility] [address] [place], [address] Chloride [Moles/Vol] 108 mmol/L High 98-107 [facility] Comment on above: Performed By: #### L 100.0100, L500.2500 ####[facility] [address] [place], [address] CO2 [Moles/Vol] 24.0 mmol/L Normal 21.0-32.0 [facility] Comment on above: Performed By: #### L 100.0100, L500.2500 ####[facility] [address] [place], [address] Creatinine [Mass/Vol] 1.60 mg/dL High 0.55-1.02 [facility] Comment on above: Result Comment: The validity of the calculated GFR GFRAA in patients over70 years has not been determined. Clinical correlation isessential. Performed By: #### L 100.0100, L500.2500 ####[facility] [address] [place], [address] ECRCL 16.75 ml/min Normal [facility] Comment on above: Performed By: #### L 100.0100, L500.2500 ####[facility] [address] [place], [address] EST GFR - AA 39 mL/min Low >60 [facility] Comment on above: Result Comment: Afri can Lebanese GFR Calc Performed By: #### L 100.0100, L500.2500 ####[facility] [address] [place], [address] GAP 6 Normal 5-15 [facility] Comment on above: Performed By: #### L 100.0100, L500.2500 ####[facility] [address] [place], [address] GFR/1.73 sq M.predicted among non-blacks MDRD (S/P/Bld) [Vol rate/Area] 32 mL/min/{1.73_m2} Low >60 [facility] Comment on above: Result Comment: Non- GFR Calc Performed By: #### L 100.0100, L500.2500 ####[facility] [address] [place], [address] Glucose [Mass/Vol] 80 mg/dL Normal 74-106 [facility] Comment on above: Performed By: #### L 100.0100, L500.2500 ####[facility] [address] [place], [address] Potassium [Moles/Vol] 4.2 mmol/L Normal 3.5-5.1 [facility] Comment on above: Performed By: #### L 100.0100, L500.2500 ####[facility] [address] [place], [address] Sodium [Moles/Vol] 138 mmol/L Normal 136-145 [facility] Comment on above: Performed By: #### L 100.0100, L500.2500 ####[facility] [address] [place], [address] Urea nitrogen [Mass/Vol] 34 mg/dL High 7-18 [facility] Comment on above: Performed By: #### L 100.0100, L500.2500 ####[facility] [address] [place], [address] Basophil percentageOrdered B y: Segundo Sultana on 02-26-2024 Basophil percentage 0.5 % 0-1 [facility] Blood urea nitrogen (BUN)/cr eatinine ratioOrdered By: Segundo Sultana on 02-26-2024 Blood urea nitrogen (BUN)/creatinine ratio 21.2 RATIO High 10-20 [facility] CBC W/Diff, Automatedon 02-09 Absolute Neut Normal 2.0-7.7 [facility] Comment on above: Result Comment: Canc elled via OM: Order cancelled - Patient discharged Performed By: #### L 300.3900, L100.0100 ####[facility] [address] [place], [address] HCT Normal 37-47 [facility] Comment on above: Result Comment: Canc elled via OM: Order cancelled - Patient discharged Performed By: #### L 300.3900, L100.0100 ####[facility] [address] [place], [address] HGB Normal 12.0-15.0 [facility] Comment on above: Result Comment: Canc elled via OM: Order cancelled - Patient discharged Performed By: #### L 300.3900, L100.0100 ####[facility] [address] [place], [address] MCH Normal 27.0-32.0 [facility] Comment on above: Result Comment: Canc elled via OM: Order cancelled - Patient discharged Performed By: #### L 300.3900, L100.0100 ####[facility] [address] [place], [address] MCHC Normal 32-36 [facility] Comment on above: Result Comment: Canc elled via OM: Order cancelled - Patient discharged Performed By: #### L 300.3900, L100.0100 ####[facility] [address] [place], [address] MCV Normal 81-99 [facility] Comment on above: Result Comment: Canc elled via OM: Order cancelled - Patient discharged Performed By: #### L 300.3900, L100.0100 ####[facility] [address] [place], [address] NEUT% Normal 47-70 [facility] Comment on above: Result Comment: Canc elled via OM: Order cancelled - Patient discharged Performed By: #### L 300.3900, L100.0100 ####[facility] [address] [place], [address] PLT Normal 150-450 [facility] Comment on above: Result Comment: Canc elled via OM: Order cancelled - Patient discharged Performed By: #### L 300.3900, L100.0100 ####[facility] [address] [place], [address] RBC Normal 4.2-5.4 [facility] Comment on above: Result Comment: Canc elled via OM: Order cancelled - Patient discharged Performed By: #### L 300.3900, L100.0100 ####[facility] [address] [place], [address] RDW CV Normal 11.6-14.6 [facility] Comment on above: Result Comment: Canc elled via OM: Order cancelled - Patient discharged Performed By: #### L 300.3900, L100.0100 ####[facility] [address] [place], [address] RDW SD Normal 35.1-43.9 [facility] Comment on above: Result Comment: Canc elled via OM: Order cancelled - Patient discharged Performed By: #### L 300.3900, L100.0100 ####[facility] [address] [place], [address] WBC Normal 4.4-11.0 [facility] Comment on above: Result Comment: Canc elled via OM: Order cancelled - Patient discharged Performed By: #### L 300.3900, L100.0100 ####[facility] [address] [place], [address] Absolute Lymph 0.81 X10 3/uL Low 0.83-4.51 [facility] Comment on above: Performed By: #### L 100.0100, L500.2500 ####[facility] [address] [place], [address] Absolute Neut 5.7 X10 3/uL Normal 2.0-7.7 [facility] Comment on above: Performed By: #### L 100.0100, L500.2500 ####[facility] [address] [place], [address] Basophils/100 WBC (Bld) 0.5 % Normal 0-1 [facility] Comment on above: Performed By: #### L 100.0100, L500.2500 ####[facility] [address] [place], [address] Eosinophils/100 WBC (Bld) 1.9 % Normal 0-5 [facility] Comment on above: Performed By: #### L 100.0100, L500.2500 ####[facility] [address] [place], [address] Erythrocyte distribution width (RBC) [Ratio] 15.8 % High 11.6-14.6 [facility] Comment on above: Performed By: #### L 100.0100, L500.2500 ####[facility] [address] [place], [address] Hematocrit (Bld) [Volume fraction] 26.9 % Low 37-47 [facility] Comment on above: Performed By: #### L 100.0100, L500.2500 ####[facility] [address] [place], [address] Hemoglobin (Bld) [Mass/Vol] 8.5 g/dL Low 12.0-15.0 [facility] Comment on above: Performed By: #### L 100.0100, L500.2500 ####[facility] [address] [place], [address] IG% 0.500 Normal 0.0-0.9 [facility] Comment on above: Result Comment: IG% - Immature Granulocytes (promyelocytes, myelocytes andmetamyelocytes) > 1% indicates that a LEFT SHIFT is Present. Performed By: #### L 100.0100, L500.2500 ####[facility] [address] [place], [address] Lymphocytes/100 WBC (Bld) 11.1 % Low 19-41 [facility] Comment on above: Performed By: #### L 100.0100, L500.2500 ####[facility] [address] [place], [address] MCH (RBC) [Entitic mass] 29.9 pg Normal 27.0-32.0 [facility] Comment on above: Performed By: #### L 100.0100, L500.2500 ####[facility] [address] [place], [address] MCHC (RBC) [Mass/Vol] 31.6 g/dL Low 32-36 [facility] Comment on above: Performed By: #### L 100.0100, L500.2500 ####[facility] [address] [place], [address] MCV (RBC) [Entitic vol] 94.7 fL Normal 81-99 [facility] Comment on above: Performed By: #### L 100.0100, L500.2500 ####[facility] [address] [place], [address] Monocytes/100 WBC (Bld) 7.4 % Normal 0-10 [facility] Comment on above: Performed By: #### L 100.0100, L500.2500 ####[facility] [address] [place], [address] Neutrophils/100 WBC (Bld) 78.6 % High 47-70 [facility] Comment on above: Performed By: #### L 100.0100, L500.2500 ####[facility] [address] [place], [address] Nucleated RBC (Bld) [#/Vol] 0 10*3/uL Normal 0-5 [facility] Comment on above: Performed By: #### L 100.0100, L500.2500 ####[facility] [address] [place], [address] Platelet mean volume (Bld) [Entitic vol] 8.9 fL Normal 6.2-12.0 [facility] Comment on above: Performed By: #### L 100.0100, L500.2500 ####[facility] [address] [place], [address] Platelets (Bld) [#/Vol] 181 10*3/uL Normal 150-450 [facility] Comment on above: Performed By: #### L 100.0100, L500.2500 ####[facility] [address] [place], [address] RBC (Bld) [#/Vol] 2.84 10*6/uL Low 4.2-5.4 [facility] Comment on above: Performed By: #### L 100.0100, L500.2500 ####[facility] [address] [place], [address] RDW SD 54.9 fl High 35.1-43.9 [facility] Comment on above: Performed By: #### L 100.0100, L500.2500 ####[facility] [address] [place], [address] WBC (Bld) [#/Vol] 7.3 10*3/uL Normal 4.4-11.0 [facility] Comment on above: Performed By: #### L 100.0100, L500.2500 ####[facility] [address] [place], [address] Calcium [Mass/Vol]Ordered By : Segundo Sultana 02-26-2024 Serum or plasma calcium measurement (mass/volume) 8.6 mg/dL 8.5-10.1 [facility] Carbon dioxide measurementOr dered By: Segundo Ricardo02-26-2024 Carbon dioxide measurement 24.0 mmol/L 21.0-32.0 [facility] Chloride measurementOrdered By: Segundo Ricardo02-26-2024 Chloride measurement 108 mmol/L High 98-107 [facility] Creatinine [Mass/Vol]Ordered By: Segundo Sultana 02-26-2024 Serum or plasma creatinine measurement (mass/volume) 1.60 mg/dL High 0.55-1.02 [facility] Eosinophil percentageOrdered By: Segundo Ricardo02-26-2024 Eosinophil percentage 1.9 % 0-5 [facility] Erythrocyte distribution wid th (RBC) [Ratio]Ordered By: Segundo Sultana 02-26-2024 Erythrocyte distribution width ratio 15.8 % High 11.6-14.6 [facility] Erythrocyte distribution wid th standard deviationOrdered By: Segundo Sultana 02-26-2024 Erythrocyte distribution width standard deviation 54.9 fl High 35.1-43.9 [facility] Estimated glomerular filtrat ion rate (GFR) AmericanOrdered By: Segundo Sultana on 02-26-2024 Estimated glomerular filtration rate (GFR) 39 mL/min Low >60 [facility] Estimation of creatinine joni aranceOrdered By: Segundo Sultana on 02-26-2024 Estimation of creatinine clearance 16.75 ml/min [facility] Glomerular filtration rate ( GFR) estimationOrdered By: Segundo Sultana on 02-26-2024 Glomerular filtration rate (GFR) estimation 32 mL/min Low >60 [facility] Glucose measurementOrdered B y: Segundo Sultana on 02-26-2024 Glucose measurement 80 mg/dL 74-106 [facility] Immature granulocytes/100 WB C Auto (Bld)Ordered By: Segundo Sultana on 02-26-2024 Automated immature granulocyte percentage 0.500 % 0.0-0.9 [facility] Lymphocytes Auto (Unsp spec) [#/Vol]Ordered By: Segundo Sultana on 02-26-2024 Absolute lymphocyte count 0.81 X10^3/uL Low 0.83-4.51 [facility] Lymphocytes/100 WBC Auto (Un sp spec)Ordered By: Segundo Sultana on 02-26-2024 Automated lymphocyte count as percentage of total leukocytes 11.1 % Low 19-41 [facility] MCV (RBC) [Entitic vol]Order ed By: Segundo Sultana 02-26-2024 MCV (mean corpuscular volume) determination 94.7 fL 81-99 [facility] Mean corpuscular hemoglobin (MCH) determinationOrdered By: Segundo Sultana on 02-26-2024 Mean corpuscular hemoglobin (MCH) determination 29.9 pg 27.0-32.0 [facility] Mean corpuscular hemoglobin concentration (MCHC) determinationOrdered By: eSgundo Sultana 02-26-2024 Mean corpuscular hemoglobin concentration (MCHC) determination 31.6 g/dL Low 32-36 [facility] Mean platelet volume determi nationOrdered By: Segundo Sultana on 02-26-2024 Mean platelet volume determination 8.9 fl 6.2-12.0 [facility] Monocyte percentageOrdered B y: Segundo Sultana on 02-26-2024 Monocyte percentage 7.4 % 0-10 [facility] Neutrophil percentageOrdered By: Segundo Sultana on 02-26-2024 Neutrophil percentage 78.6 % High 47-70 [facility] Nucleated red blood cell per centageOrdered By: Segundo Sultana on 02-26-2024 Nucleated red blood cell percentage 0 % 0-5 [facility] Platelet countOrdered By: Jonathan Sultana on 02-26-2024 Platelet count 181 K/mm3 150-450 [facility] Potassium measurementOrdered By: Segundo Sultana on 02-26-2024 Potassium measurement 4.2 mmol/L 3.5-5.1 [facility] Prothrombin Time w/INRon INR Normal [facility] Comment on above: Result Comment: Canc elled via OM: Order cancelled - Patient discharged Performed By: #### L 300.3900, L100.0100 ####[facility] [address] [place], [place], [id number] PROTIME Normal 11.7-14.9 [facility] Comment on above: Result Comment: Canc elled via OM: Order cancelled - Patient discharged Performed By: #### L 300.3900, L100.0100 ####[facility] [address] [place], [place], [address] RBC Auto (Bld) [#/Vol]Ordere d By: Segundo Sultana on 02-26-2024 Automated blood erythrocyte count 2.84 M/mm3 Low 4.2-5.4 [facility] Serum anion gap measurementO rdered By: Segundo Sultana on 02-26-2024 Serum anion gap measurement 6 5-15 [facility] Sodium levelOrdered By: Segundo Sultana on 02-26-2024 Sodium level 138 mmol/L 136-145 [facility] Urea nitrogen [Mass/Vol]Orde red By: Segundo Sultana on 02-26-2024 Serum or plasma urea nitrogen measurement (mass/volume) 34 mg/dL High 7-18 [facility] Urine Cultureon 02-26-2024 URC Normal [facility] Comment on above: Performed By: #### M 100.2200 ####[facility] [address] [place], [address] White blood cell (WBC) count Ordered By: Segundo Sultana on 02-26-2024 White blood cell (WBC) count 7.3 K/mm3 4.4-11.0 [facility] Abdomen Single Viewon 2024 Abdomen Single View Normal [facility] Absolute neutrophil countOrd ered By: Warner Bustamante on 02-25-2024 Absolute neutrophil count 6.5 X10^3/uL 2.0-7.7 [facility] Basic Metabolic Profile (BMP )on 02-25-2024 BUN/CRE 22.9 RATIO High 10-20 [facility] Comment on above: Performed By: #### L 500.2500 ####[facility] [address] [place], [address] CA,Total 8.3 mg/dL Low 8.5-10.1 [facility] Comment on above: Performed By: #### L 500.2500 ####[facility] [address] [place], [address] Chloride [Moles/Vol] 105 mmol/L Normal 98-107 [facility] Comment on above: Performed By: #### L 500.2500 ####[facility] [address] [place], [address] CO2 [Moles/Vol] 26.0 mmol/L Normal 21.0-32.0 [facility] Comment on above: Performed By: #### L 500.2500 ####[facility] [address] [place], [address] Creatinine [Mass/Vol] 2.05 mg/dL High 0.55-1.02 [facility] Comment on above: Result Comment: The validity of the calculated GFR GFRAA in patients over70 years has not been determined. Clinical correlation isessential. Performed By: #### L 500.2500 ####[facility] [address] [place], [address] ECRCL 14.15 ml/min Normal [facility] Comment on above: Performed By: #### L 500.2500 ####[facility] [address] [place], [address] EST GFR - AA 30 mL/min Low >60 [facility] Comment on above: Result Comment: Afri can Lebanese GFR Calc Performed By: #### L 500.2500 ####[facility] [address] [place], [address] GAP 7 Normal 5-15 [facility] Comment on above: Performed By: #### L 500.2500 ####[facility] [address] [place], [address] GFR/1.73 sq M.predicted among non-blacks MDRD (S/P/Bld) [Vol rate/Area] 24 mL/min/{1.73_m2} Low >60 [facility] Comment on above: Result Comment: Non- GFR Calc Performed By: #### L 500.2500 ####[facility] [address] [place], [address] Glucose [Mass/Vol] 80 mg/dL Normal 74-106 [facility] Comment on above: Performed By: #### L 500.2500 ####[facility] [address] [place], [address] Potassium [Moles/Vol] 4.1 mmol/L Normal 3.5-5.1 [facility] Comment on above: Performed By: #### L 500.2500 ####[facility] [address] [place], [address] Sodium [Moles/Vol] 138 mmol/L Normal 136-145 [facility] Comment on above: Performed By: #### L 500.2500 ####[facility] [address] [place], [address] Urea nitrogen [Mass/Vol] 47 mg/dL High 7-18 [facility] Comment on above: Performed By: #### L 500.2500 ####[facility] [address] [place], [address] Basophil percentageOrdered B y: Warner Bustamante on 02-25-2024 Basophil percentage 0.2 % 0-1 [facility] Blood urea nitrogen (BUN)/cr eatinine ratioOrdered By: Marley Zafar on 02-25-2024 Blood urea nitrogen (BUN)/creatinine ratio 22.9 RATIO High 10-20 [facility] CBC W/Diff, Automatedon 02-09 Absolute Lymph 0.99 X10 3/uL Normal 0.83-4.51 [facility] Comment on above: Performed By: #### L 300.3900, L100.0100 ####[facility] [address] [place], [address] Absolute Neut 6.5 X10 3/uL Normal 2.0-7.7 [facility] Comment on above: Performed By: #### L 300.3900, L100.0100 ####[facility] [address] [place], [address] Basophils/100 WBC (Bld) 0.2 % Normal 0-1 [facility] Comment on above: Performed By: #### L 300.3900, L100.0100 ####[facility] [address] [place], [address] Eosinophils/100 WBC (Bld) 2.3 % Normal 0-5 [facility] Comment on above: Performed By: #### L 300.3900, L100.0100 ####[facility] [address] [place], [address] Erythrocyte distribution width (RBC) [Ratio] 15.9 % High 11.6-14.6 [facility] Comment on above: Performed By: #### L 300.3900, L100.0100 ####[facility] [address] [place], [address] Hematocrit (Bld) [Volume fraction] 25.8 % Low 37-47 [facility] Comment on above: Performed By: #### L 300.3900, L100.0100 ####[facility] [address] [place], [address] Hemoglobin (Bld) [Mass/Vol] 8.5 g/dL Low 12.0-15.0 [facility] Comment on above: Performed By: #### L 300.3900, L100.0100 ####[facility] [address] [place], [address] IG% 0.500 Normal 0.0-0.9 [facility] Comment on above: Result Comment: IG% - Immature Granulocytes (promyelocytes, myelocytes andmetamyelocytes) > 1% indicates that a LEFT SHIFT is Present. Performed By: #### L 300.3900, L100.0100 ####[facility] [address] [place], [address] Lymphocytes/100 WBC (Bld) 11.9 % Low 19-41 [facility] Comment on above: Performed By: #### L 300.3900, L100.0100 ####[facility] [address] [place], [address] MCH (RBC) [Entitic mass] 30.8 pg Normal 27.0-32.0 [facility] Comment on above: Performed By: #### L 300.3900, L100.0100 ####[facility] [address] [place], [address] MCHC (RBC) [Mass/Vol] 32.9 g/dL Normal 32-36 [facility] Comment on above: Performed By: #### L 300.3900, L100.0100 ####[facility] [address] [place], [address] MCV (RBC) [Entitic vol] 93.5 fL Normal 81-99 [facility] Comment on above: Performed By: #### L 300.3900, L100.0100 ####[facility] [address] [place], [address] Monocytes/100 WBC (Bld) 6.8 % Normal 0-10 [facility] Comment on above: Performed By: #### L 300.3900, L100.0100 ####[facility] [address] [place], [address] Neutrophils/100 WBC (Bld) 78.3 % High 47-70 [facility] Comment on above: Performed By: #### L 300.3900, L100.0100 ####[facility] [address] [place], [address] Nucleated RBC (Bld) [#/Vol] 0 10*3/uL Normal 0-5 [facility] Comment on above: Performed By: #### L 300.3900, L100.0100 ####[facility] [address] [place], [address] Platelet mean volume (Bld) [Entitic vol] 9.0 fL Normal 6.2-12.0 [facility] Comment on above: Performed By: #### L 300.3900, L100.0100 ####[facility] [address] [place], [address] Platelets (Bld) [#/Vol] 179 10*3/uL Normal 150-450 [facility] Comment on above: Performed By: #### L 300.3900, L100.0100 ####[facility] [address] [place], [address] RBC (Bld) [#/Vol] 2.76 10*6/uL Low 4.2-5.4 [facility] Comment on above: Performed By: #### L 300.3900, L100.0100 ####[facility] [address] [place], [address] RDW SD 55.2 fl High 35.1-43.9 [facility] Comment on above: Performed By: #### L 300.3900, L100.0100 ####[facility] [address] [place], [address] WBC (Bld) [#/Vol] 8.3 10*3/uL Normal 4.4-11.0 [facility] Comment on above: Performed By: #### L 300.3900, L100.0100 ####[facility] [address] [place], [address] Calcium [Mass/Vol]Ordered By : Marley Zafar on 02-25-2024 Serum or plasma calcium measurement (mass/volume) 8.3 mg/dL Low 8.5-10.1 [facility] Carbon dioxide measurementOr dered By: Marley Zafar on 02-25-2024 Carbon dioxide measurement 26.0 mmol/L 21.0-32.0 [facility] Chloride measurementOrdered By: Marley Zafar on 02-25-2024 Chloride measurement 105 mmol/L 98-107 [facility] Creatinine [Mass/Vol]Ordered By: Marley Zafar on 02-25-2024 Serum or plasma creatinine measurement (mass/volume) 2.05 mg/dL High 0.55-1.02 [facility] Eosinophil percentageOrdered By: Warner Bustamante on 02-25-2024 Eosinophil percentage 2.3 % 0-5 [facility] Erythrocyte distribution wid th (RBC) [Ratio]Ordered By: Warner Bustamante on 02-25-2024 Erythrocyte distribution width ratio 15.9 % High 11.6-14.6 [facility] Erythrocyte distribution wid th standard deviationOrdered By: Warner Bustamante on 02-25-2024 Erythrocyte distribution width standard deviation 55.2 fl High 35.1-43.9 [facility] Estimated glomerular filtrat ion rate (GFR) AmericanOrdered By: Marley Zafar on 02-25-2024 Estimated glomerular filtration rate (GFR) 30 mL/min Low >60 [facility] Estimation of creatinine joni aranceOrdered By: Marley Zafar on 02-25-2024 Estimation of creatinine clearance 14.15 ml/min [facility] Glomerular filtration rate ( GFR) estimationOrdered By: Marley Zafar on 02-25-2024 Glomerular filtration rate (GFR) estimation 24 mL/min Low >60 [facility] Glucose measurementOrdered B y: Marley Zafar on 02-25-2024 Glucose measurement 80 mg/dL 74-106 [facility] Hematocrit Auto (Bld) [Volum e fraction]Ordered By: Warner Bustamante on 02-25-2024 Automated blood hematocrit (percentage) 25.8 % Low 37-47 [facility] Hemoglobin measurementOrdere d By: Warner Bustamante on 02-25-2024 Hemoglobin measurement 8.5 g/dL Low 12.0-15.0 [facility] Immature granulocytes/100 WB C Auto (Bld)Ordered By: Warner Bustamante on 02-25-2024 Automated immature granulocyte percentage 0.500 % 0.0-0.9 [facility] International normalized rat io (INR) calculationOrdered By: Warner Bustamante on 02-25-2024 International normalized ratio (INR) calculation 1.3 [facility] Lymphocytes Auto (Unsp spec) [#/Vol]Ordered By: Warner Bustamante on 02-25-2024 Absolute lymphocyte count 0.99 X10^3/uL 0.83-4.51 [facility] Lymphocytes/100 WBC Auto (Un sp spec)Ordered By: Warner Bustamante on 02-25-2024 Automated lymphocyte count as percentage of total leukocytes 11.9 % Low 19-41 [facility] MCV (RBC) [Entitic vol]Order ed By: Warner Bustamante on 02-25-2024 MCV (mean corpuscular volume) determination 93.5 fL 81-99 [facility] Mean corpuscular hemoglobin (MCH) determinationOrdered By: Warner Bustamante on 02-25-2024 Mean corpuscular hemoglobin (MCH) determination 30.8 pg 27.0-32.0 [facility] Mean corpuscular hemoglobin concentration (MCHC) determinationOrdered By: Warner Bustamante on 02-25-2024 Mean corpuscular hemoglobin concentration (MCHC) determination 32.9 g/dL 32-36 [facility] Mean platelet volume determi nationOrdered By: Warner Bustamante on 02-25-2024 Mean platelet volume determination 9.0 fl 6.2-12.0 [facility] Monocyte percentageOrdered B y: Warner Bustamante on 02-25-2024 Monocyte percentage 6.8 % 0-10 [facility] Neutrophil percentageOrdered By: Warner Bustamante on 02-25-2024 Neutrophil percentage 78.3 % High 47-70 [facility] Nucleated red blood cell per centageOrdered By: Warner Bustamante on 02-25-2024 Nucleated red blood cell percentage 0 % 0-5 [facility] Platelet countOrdered By: Clara Bustamante on 02-25-2024 Platelet count 179 K/mm3 150-450 [facility] Potassium measurementOrdered By: Marley Zafar on 02-25-2024 Potassium measurement 4.1 mmol/L 3.5-5.1 [facility] Prothrombin Time w/INRon INR Coag (PPP) [Relative time] 1.3 {INR} Normal [facility] Comment on above: Performed By: #### L 300.3900, L100.0100 ####[facility] [address] [place], [place], [address] PT Coag (PPP) [Time] 16.7 s High 11.7-14.9 [facility] Comment on above: Performed By: #### L 300.3900, L100.0100 ####[facility] [address] [place], [address] Prothrombin timeOrdered By: Warner Bustamante on 02-25-2024 Prothrombin time 16.7 SECONDS High 11.7-14.9 [facility] RBC Auto (Bld) [#/Vol]Ordere d By: Warner Bustamante on 02-25-2024 Automated blood erythrocyte count 2.76 M/mm3 Low 4.2-5.4 [facility] Serum anion gap measurementO rdered By: Marley Zafar on 02-25-2024 Serum anion gap measurement 7 - [facility] Sodium levelOrdered By: Elena Zafar on 02-25-2024 Sodium level 138 mmol/L 136-145 [facility] Urea nitrogen [Mass/Vol]Orde red By: Marley Zafar on 02-25-2024 Serum or plasma urea nitrogen measurement (mass/volume) 47 mg/dL High 7-18 [facility] White blood cell (WBC) count Ordered By: Warner Bustamante on 02-25-2024 White blood cell (WBC) count 8.3 K/mm3 4.4-11.0 [facility] Albumin [Mass/Vol]Ordered By : Marley Zafar on 02-24-2024 Serum or plasma albumin measurement (mass/volume) 2.4 g/dL Low 3.2-5.0 [facility] CBC W/Diff, Automatedon 02-09 Absolute Lymph 0.84 X10 3/uL Normal 0.83-4.51 [facility] Comment on above: Performed By: #### L 300.3900, L100.0100 ####[facility] [address] [place], [address] Absolute Neut 5.8 X10 3/uL Normal 2.0-7.7 [facility] Comment on above: Performed By: #### L 300.3900, L100.0100 ####[facility] [address] [place], [address] Basophils/100 WBC (Bld) 0.5 % Normal 0-1 [facility] Comment on above: Performed By: #### L 300.3900, L100.0100 ####[facility] [address] [place], [address] Eosinophils/100 WBC (Bld) 2.3 % Normal 0-5 [facility] Comment on above: Performed By: #### L 300.3900, L100.0100 ####[facility] [address] [place], [address] Erythrocyte distribution width (RBC) [Ratio] 15.9 % High 11.6-14.6 [facility] Comment on above: Performed By: #### L 300.3900, L100.0100 ####[facility] [address] [place], [address] Hematocrit (Bld) [Volume fraction] 28.4 % Low 37-47 [facility] Comment on above: Performed By: #### L 300.3900, L100.0100 ####[facility] [address] [place], [address] Hemoglobin (Bld) [Mass/Vol] 9.0 g/dL Low 12.0-15.0 [facility] Comment on above: Performed By: #### L 300.3900, L100.0100 ####[facility] [address] [place], [address] IG% 0.400 Normal 0.0-0.9 [facility] Comment on above: Result Comment: IG% - Immature Granulocytes (promyelocytes, myelocytes andmetamyelocytes) > 1% indicates that a LEFT SHIFT is Present. Performed By: #### L 300.3900, L100.0100 ####[facility] [address] [place], [address] Lymphocytes/100 WBC (Bld) 11.4 % Low 19-41 [facility] Comment on above: Performed By: #### L 300.3900, L100.0100 ####[facility] [address] [place], [address] MCH (RBC) [Entitic mass] 29.9 pg Normal 27.0-32.0 [facility] Comment on above: Performed By: #### L 300.3900, L100.0100 ####[facility] [address] [place], [address] MCHC (RBC) [Mass/Vol] 31.7 g/dL Low 32-36 [facility] Comment on above: Performed By: #### L 300.3900, L100.0100 ####[facility] [address] [place], [address] MCV (RBC) [Entitic vol] 94.4 fL Normal 81-99 [facility] Comment on above: Performed By: #### L 300.3900, L100.0100 ####[facility] [address] [place], [address] Monocytes/100 WBC (Bld) 6.1 % Normal 0-10 [facility] Comment on above: Performed By: #### L 300.3900, L100.0100 ####[facility] [address] [place], [address] Neutrophils/100 WBC (Bld) 79.3 % High 47-70 [facility] Comment on above: Performed By: #### L 300.3900, L100.0100 ####[facility] [address] [place], [address] Nucleated RBC (Bld) [#/Vol] 0 10*3/uL Normal 0-5 [facility] Comment on above: Performed By: #### L 300.3900, L100.0100 ####[facility] [address] [place], [address] Platelet mean volume (Bld) [Entitic vol] 8.9 fL Normal 6.2-12.0 [facility] Comment on above: Performed By: #### L 300.3900, L100.0100 ####[facility] [address] [place], [address] Platelets (Bld) [#/Vol] 206 10*3/uL Normal 150-450 [facility] Comment on above: Performed By: #### L 300.3900, L100.0100 ####[facility] [address] [place], [address] RBC (Bld) [#/Vol] 3.01 10*6/uL Low 4.2-5.4 [facility] Comment on above: Performed By: #### L 300.3900, L100.0100 ####[facility] [address] [place], [address] RDW SD 55.8 fl High 35.1-43.9 [facility] Comment on above: Performed By: #### L 300.3900, L100.0100 ####[facility] [address] [place], [address] WBC (Bld) [#/Vol] 7.3 10*3/uL Normal 4.4-11.0 [facility] Comment on above: Performed By: #### L 300.3900, L100.0100 ####[facility] [address] [place], [address] CBC-Complete Blood Cnt No Di ffon 02-24-2024 Erythrocyte distribution width (RBC) [Ratio] 16.0 % High 11.6-14.6 [facility] Comment on above: Performed By: #### L 100.0500, L500.3600 ####[facility] [address] [place], [address] Hematocrit (Bld) [Volume fraction] 25.6 % Low 37-47 [facility] Comment on above: Performed By: #### L 100.0500, L500.3600 ####[facility] [address] [place], [address] Hemoglobin (Bld) [Mass/Vol] 8.4 g/dL Low 12.0-15.0 [facility] Comment on above: Performed By: #### L 100.0500, L500.3600 ####[facility] [address] [place], [address] MCH (RBC) [Entitic mass] 30.7 pg Normal 27.0-32.0 [facility] Comment on above: Performed By: #### L 100.0500, L500.3600 ####[facility] [address] [place], [address] MCHC (RBC) [Mass/Vol] 32.8 g/dL Normal 32-36 [facility] Comment on above: Performed By: #### L 100.0500, L500.3600 ####[facility] [address] [place], [address] MCV (RBC) [Entitic vol] 93.4 fL Normal 81-99 [facility] [facility] Comment on above: Performed By: #### L 100.0500, L500.3600 ####[facility] [address] [place], [address] Platelet mean volume (Bld) [Entitic vol] 8.9 fL Normal 6.2-12.0 [facility] Comment on above: Performed By: #### L 100.0500, L500.3600 ####[facility] [address] [place], [address] Platelets (Bld) [#/Vol] 195 10*3/uL Normal 150-450 [facility] Comment on above: Performed By: #### L 100.0500, L500.3600 ####[facility] [address] [place], [address] RBC (Bld) [#/Vol] 2.74 10*6/uL Low 4.2-5.4 [facility] Comment on above: Performed By: #### L 100.0500, L500.3600 ####[facility] [address] [place], [address] RDW SD 55.1 fl High 35.1-43.9 [facility] Comment on above: Performed By: #### L 100.0500, L500.3600 ####[facility] [address] [place], [address] WBC (Bld) [#/Vol] 7.7 10*3/uL Normal 4.4-11.0 [facility] Comment on above: Performed By: #### L 100.0500, L500.3600 ####[facility] [address] [place], [address] Phosphorus measurementOrdere d By: Marley Zafar on 02-24-2024 Phosphorus measurement 4.5 mg/dL 2.5-4.9 [facility] Prothrombin Time w/INRon INR Coag (PPP) [Relative time] 1.3 {INR} Normal [facility] Comment on above: Performed By: #### L 300.3900, L100.0100 ####[facility] [address] [place], [address] PT Coag (PPP) [Time] 16.2 s High 11.7-14.9 [facility] Comment on above: Performed By: #### L 300.3900, L100.0100 ####[facility] [address] [place], [address] Renal Profileon 02-24-2024 Albumin [Mass/Vol] 2.4 g/dL Low 3.2-5.0 [facility] Comment on above: Performed By: #### L 100.0500, L500.3600 ####[facility] [address] [place], [address] BUN/CRE 22.4 RATIO High 10-20 [facility] Comment on above: Performed By: #### L 100.0500, L500.3600 ####[facility] [address] [place], [address] CA,Total 8.2 mg/dL Low 8.5-10.1 [facility] Comment on above: Performed By: #### L 100.0500, L500.3600 ####[facility] [address] [place], [address] Chloride [Moles/Vol] 103 mmol/L Normal 98-107 [facility] Comment on above: Performed By: #### L 100.0500, L500.3600 ####[facility] [address] [place], [address] CO2 [Moles/Vol] 29.0 mmol/L Normal 21.0-32.0 [facility] Comment on above: Performed By: #### L 100.0500, L500.3600 ####[facility] [address] [place], [address] Creatinine [Mass/Vol] 2.28 mg/dL High 0.55-1.02 [facility] Comment on above: Result Comment: The validity of the calculated GFR GFRAA in patients over70 years has not been determined. Clinical correlation isessential. Performed By: #### L 100.0500, L500.3600 ####[facility] [address] [place], [address] ECRCL 12.72 ml/min Normal [facility] Comment on above: Performed By: #### L 100.0500, L500.3600 ####[facility] [address] [place], [address] EST GFR - AA 26 mL/min Low >60 [facility] Comment on above: Result Comment: Afri can Lebanese GFR Calc Performed By: #### L 100.0500, L500.3600 ####[facility] [address] [place], [address] GFR/1.73 sq M.predicted among non-blacks MDRD (S/P/Bld) [Vol rate/Area] 22 mL/min/{1.73_m2} Low >60 [facility] Comment on above: Result Comment: Non- GFR Calc Performed By: #### L 100.0500, L500.3600 ####[facility] [address] [place], [address] Glucose [Mass/Vol] 72 mg/dL Low 74-106 [facility] Comment on above: Performed By: #### L 100.0500, L500.3600 ####[facility] [address] [place], [address] Phosphate [Mass/Vol] 4.5 mg/dL Normal 2.5-4.9 [facility] Comment on above: Performed By: #### L 100.0500, L500.3600 ####[facility] [address] [place], [address] Potassium [Moles/Vol] 3.7 mmol/L Normal 3.5-5.1 [facility] Comment on above: Performed By: #### L 100.0500, L500.3600 ####[facility] [address] [place], [address] Sodium [Moles/Vol] 138 mmol/L Normal 136-145 [facility] Comment on above: Performed By: #### L 100.0500, L500.3600 ####[facility] [address] [place], [address] Urea nitrogen [Mass/Vol] 51 mg/dL High 7-18 [facility] Comment on above: Performed By: #### L 100.0500, L500.3600 ####[facility] [address] [place], [address] 12 Lead EKGon 02-23-2024 12 Lead EKG Normal [facility] ALP [Catalytic activity/Vol] Ordered By: Elsy Zafar on 02-23-2024 Serum or plasma alkaline phosphatase measurement 69 U/L 45-117 [facility] ALT [Catalytic activity/Vol] Ordered By: Elsy Zafar on 02-23-2024 Serum or plasma alanine aminotransferase (ALT) measurement 93 U/L High 13-56 [facility] Albumin to globulin ratioOrd ered By: Elsy Zafar on 02-23-2024 Albumin to globulin ratio 0.9 RATIO 0.9-2.4 [facility] Basic Metabolic Profile (BMP )on 02-23-2024 BUN/CRE 20.7 RATIO High 10-20 [facility] Comment on above: Performed By: #### L 500.2500 ####[facility] [address] [place], [address] CA,Total 9.7 mg/dL Normal 8.5-10.1 [facility] Comment on above: Performed By: #### L 500.2500 ####[facility] [address] [place], [address] Chloride [Moles/Vol] 110 mmol/L High 98-107 [facility] Comment on above: Performed By: #### L 500.2500 ####[facility] [address] [place], [address] CO2 [Moles/Vol] 19.0 mmol/L Low 21.0-32.0 [facility] Comment on above: Performed By: #### L 500.2500 ####[facility] [address] [place], [address] Creatinine [Mass/Vol] 2.66 mg/dL High 0.55-1.02 [facility] Comment on above: Result Comment: The validity of the calculated GFR GFRAA in patients over70 years has not been determined. Clinical correlation isessential. Performed By: #### L 500.2500 ####[facility] [address] [place], [address] ECRCL 10.02 ml/min Normal [facility] Comment on above: Performed By: #### L 500.2500 ####[facility] [address] [place], [address] EST GFR - AA 22 mL/min Low >60 [facility] Comment on above: Result Comment: Afri can Lebanese GFR Calc Performed By: #### L 500.2500 ####[facility] [address] [place], [address] GAP 8 Normal 5-15 [facility] Comment on above: Performed By: #### L 500.2500 ####[facility] [address] [place], [address] GFR/1.73 sq M.predicted among non-blacks MDRD (S/P/Bld) [Vol rate/Area] 18 mL/min/{1.73_m2} Low >60 [facility] Comment on above: Result Comment: Non- GFR Calc Performed By: #### L 500.2500 ####[facility] [address] [place], [address] Glucose [Mass/Vol] 112 mg/dL High 74-106 [facility] Comment on above: Result Comment: Fast ing Glucose result from 100 to 125 mg/dLsuggests IMPAIRED HOMEOSTASIS per A.D.A. criteria. Performed By: #### L 500.2500 ####[facility] [address] [place], [address] Potassium [Moles/Vol] 4.4 mmol/L Normal 3.5-5.1 [facility] Comment on above: Performed By: #### L 500.2500 ####[facility] [address] [place], [address] Sodium [Moles/Vol] 137 mmol/L Normal 136-145 [facility] Comment on above: Performed By: #### L 500.2500 ####[facility] [address] [place], [address] Urea nitrogen [Mass/Vol] 55 mg/dL High 7-18 [facility] Comment on above: Performed By: #### L 500.2500 ####[facility] [address] [place], [address] Bilirubin, totalOrdered By: Elsy aZfar on 02-23-2024 Bilirubin, total 0.50 mg/dL 0.20-1.00 [facility] CBC W/Diff, Automatedon 02-09 Absolute Lymph 1.02 X10 3/uL Normal 0.83-4.51 [facility] Comment on above: Performed By: #### L 100.0100, L501.5200, L501.2300, L500.4100, L500.4050, L501.9520 ####[facility] [address] [place], [address] Absolute Neut 4.5 X10 3/uL Normal 2.0-7.7 [facility] Comment on above: Performed By: #### L 100.0100, L501.5200, L501.2300, L500.4100, L500.4050, L501.9520 ####[facility] [address] [place], [address] Basophils/100 WBC (Bld) 0.6 % Normal 0-1 [facility] Comment on above: Performed By: #### L 100.0100, L501.5200, L501.2300, L500.4100, L500.4050, L501.9520 ####[facility] [address] [place], [address] Eosinophils/100 WBC (Bld) 3.9 % Normal 0-5 [facility] Comment on above: Performed By: #### L 100.0100, L501.5200, L501.2300, L500.4100, L500.4050, L501.9520 ####[facility] [address] [place], [address] Erythrocyte distribution width (RBC) [Ratio] 15.7 % High 11.6-14.6 [facility] Comment on above: Performed By: #### L 100.0100, L501.5200, L501.2300, L500.4100, L500.4050, L501.9520 ####[facility] [address] [place], [address] Hematocrit (Bld) [Volume fraction] 32.4 % Low 37-47 [facility] Comment on above: Performed By: #### L 100.0100, L501.5200, L501.2300, L500.4100, L500.4050, L501.9520 ####[facility] [address] [place], [address] Hemoglobin (Bld) [Mass/Vol] 9.9 g/dL Low 12.0-15.0 [facility] Comment on above: Performed By: #### L 100.0100, L501.5200, L501.2300, L500.4100, L500.4050, L501.9520 ####[facility] [address] [place], [address] IG% 0.800 Normal 0.0-0.9 [facility] Comment on above: Result Comment: IG% - Immature Granulocytes (promyelocytes, myelocytes andmetamyelocytes) > 1% indicates that a LEFT SHIFT is Present. Performed By: #### L 100.0100, L501.5200, L501.2300, L500.4100, L500.4050, L501.9520 ####[facility] [address] [place], [address] Lymphocytes/100 WBC (Bld) 15.9 % Low 19-41 [facility] Comment on above: Performed By: #### L 100.0100, L501.5200, L501.2300, L500.4100, L500.4050, L501.9520 ####[facility] [address] [place], [address] MCH (RBC) [Entitic mass] 29.6 pg Normal 27.0-32.0 [facility] Comment on above: Performed By: #### L 100.0100, L501.5200, L501.2300, L500.4100, L500.4050, L501.9520 ####[facility] [address] [place], [address] MCHC (RBC) [Mass/Vol] 30.6 g/dL Low 32-36 [facility] Comment on above: Performed By: #### L 100.0100, L501.5200, L501.2300, L500.4100, L500.4050, L501.9520 ####[facility] [address] [place], [address] MCV (RBC) [Entitic vol] 96.7 fL Normal 81-99 [facility] Comment on above: Performed By: #### L 100.0100, L501.5200, L501.2300, L500.4100, L500.4050, L501.9520 ####[facility] [address] [place], [address] Monocytes/100 WBC (Bld) 8.1 % Normal 0-10 [facility] Comment on above: Performed By: #### L 100.0100, L501.5200, L501.2300, L500.4100, L500.4050, L501.9520 ####[facility] [address] [place], [address] Neutrophils/100 WBC (Bld) 70.7 % High 47-70 [facility] Comment on above: Performed By: #### L 100.0100, L501.5200, L501.2300, L500.4100, L500.4050, L501.9520 ####[facility] [address] [place], [address] Nucleated RBC (Bld) [#/Vol] 0 10*3/uL Normal 0-5 [facility] Comment on above: Performed By: #### L 100.0100, L501.5200, L501.2300, L500.4100, L500.4050, L501.9520 ####[facility] [address] [place], [address] Platelet mean volume (Bld) [Entitic vol] 8.9 fL Normal 6.2-12.0 [facility] Comment on above: Performed By: #### L 100.0100, L501.5200, L501.2300, L500.4100, L500.4050, L501.9520 ####[facility] [address] [place], [address] Platelets (Bld) [#/Vol] 222 10*3/uL Normal 150-450 [facility] Comment on above: Performed By: #### L 100.0100, L501.5200, L501.2300, L500.4100, L500.4050, L501.9520 ####[facility] [address] [place], [address] RBC (Bld) [#/Vol] 3.35 10*6/uL Low 4.2-5.4 [facility] Comment on above: Performed By: #### L 100.0100, L501.5200, L501.2300, L500.4100, L500.4050, L501.9520 ####[facility] [address] [place], [address] RDW SD 56.1 fl High 35.1-43.9 [facility] Comment on above: Performed By: #### L 100.0100, L501.5200, L501.2300, L500.4100, L500.4050, L501.9520 ####[facility] [address] [place], [address] WBC (Bld) [#/Vol] 6.4 10*3/uL Normal 4.4-11.0 [facility] Comment on above: Performed By: #### L 100.0100, L501.5200, L501.2300, L500.4100, L500.4050, L501.9520 ####[facility] [address] [place], [address] CDIFF (PCR)on 02-23-2024 CDIFF Is the patient receiving laxatives? N New/unexplained onset of 3 or more stools in past 24 hrs? Y Pending 027 027 NAP1-B1 Presumptive Negative *for epidemiolologic??? use C. Diff PCR Negative- No toxigenic C. Diff Detected Normal [facility] Comment on above: Performed By: #### M 100.637, M100.0605, M100.6796 ####[facility] [address] [place], [address] Cholesterol [Mass/Vol]Ordere d By: Elsy Zafar on 02-23-2024 Serum or plasma cholesterol measurement (mass/volume) 114 mg/dL <200 [facility] Comprehensive Metabolic Prof ilon 02-23-2024 Albumin [Mass/Vol] 2.8 g/dL Low 3.2-5.0 [facility] Comment on above: Order Comment: Comme nts: NPO at [place] prior to lipid panel Performed By: #### L 100.0100, L501.5200, L501.2300, L500.4100, L500.4050, L501.9520 ####[facility] [address] [place], [address] Albumin/Globulin [Mass ratio] 0.9 {ratio} Normal 0.9-2.4 [facility] Comment on above: Order Comment: Comme nts: NPO at [place] prior to lipid panel Performed By: #### L 100.0100, L501.5200, L501.2300, L500.4100, L500.4050, L501.9520 ####[facility] [address], [address] ALK P 69 U/L Normal 45-117 [facility] Comment on above: Order Comment: Comme nts: NPO at [place] prior to lipid panel Performed By: #### L 100.0100, L501.5200, L501.2300, L500.4100, L500.4050, L501.9520 ####[facility] [address] [place], [address] ALT [Catalytic activity/Vol] 93 U/L High 13-56 [facility] Comment on above: Order Comment: Comme nts: NPO at [place] prior to lipid panel Performed By: #### L 100.0100, L501.5200, L501.2300, L500.4100, L500.4050, L501.9520 ####[facility] [address] [place], [address] AST [Catalytic activity/Vol] 52 U/L High 15-37 [facility] Comment on above: Order Comment: Comme nts: NPO at [place] prior to lipid panel Performed By: #### L 100.0100, L501.5200, L501.2300, L500.4100, L500.4050, L501.9520 ####[facility] [address], [address] Bilirubin [Mass/Vol] 0.50 mg/dL Normal 0.20-1.00 [facility] Comment on above: Order Comment: Comme nts: NPO at [place] prior to lipid panel Result Comment: For patients on eltrombopag therapy, use of Dimension [place] TBIL is not recommended. Performed By: #### L 100.0100, L501.5200, L501.2300, L500.4100, L500.4050, L501.9520 ####[facility] [address] [place], [address] BUN/CRE 21.3 RATIO High 10-20 [facility] Comment on above: Order Comment: Comme nts: NPO at [place] prior to lipid panel Performed By: #### L 100.0100, L501.5200, L501.2300, L500.4100, L500.4050, L501.9520 ####[facility] [address] [place], [address] CA,Total 9.6 mg/dL Normal 8.5-10.1 [facility] Comment on above: Order Comment: Comme nts: NPO at [place] prior to lipid panel Performed By: #### L 100.0100, L501.5200, L501.2300, L500.4100, L500.4050, L501.9520 ####[facility] [address] [place], [address] Chloride [Moles/Vol] 112 mmol/L High 98-107 [facility] Comment on above: Order Comment: Comme nts: NPO at [place] prior to lipid panel Performed By: #### L 100.0100, L501.5200, L501.2300, L500.4100, L500.4050, L501.9520 ####[facility] [address] [place], [address] CO2 [Moles/Vol] 20.0 mmol/L Low 21.0-32.0 [facility] Comment on above: Order Comment: Comme nts: NPO at [place] prior to lipid panel Performed By: #### L 100.0100, L501.5200, L501.2300, L500.4100, L500.4050, L501.9520 ####[facility] [address] [place], [address] Creatinine [Mass/Vol] 2.82 mg/dL High 0.55-1.02 [facility] Comment on above: Order Comment: Comme nts: NPO at [place] prior to lipid panel Result Comment: The validity of the calculated GFR GFRAA in patients over70 years has not been determined. Clinical correlation isessential. Performed By: #### L 100.0100, L501.5200, L501.2300, L500.4100, L500.4050, L501.9520 ####[facility] [address] [place], [address] ECRCL 9.45 ml/min Normal [facility] Comment on above: Order Comment: Comme nts: NPO at [place] prior to lipid panel Performed By: #### L 100.0100, L501.5200, L501.2300, L500.4100, L500.4050, L501.9520 ####[facility] [address] [place], [address] EST GFR - AA 20 mL/min Low >60 [facility] Comment on above: Order Comment: Comme nts: NPO at [place] prior to lipid panel Result Comment: Afri can Lebanese GFR Calc Performed By: #### L 100.0100, L501.5200, L501.2300, L500.4100, L500.4050, L501.9520 ####[facility] [address] [place], [address] GAP 6 Normal 5-15 [facility] Comment on above: Order Comment: Comme nts: NPO at [place] prior to lipid panel Performed By: #### L 100.0100, L501.5200, L501.2300, L500.4100, L500.4050, L501.9520 ####[facility] [address] [place], [address] GFR/1.73 sq M.predicted among non-blacks MDRD (S/P/Bld) [Vol rate/Area] 17 mL/min/{1.73_m2} Low >60 [facility] Comment on above: Order Comment: Comme nts: NPO at [place] prior to lipid panel Result Comment: Non- GFR Calc Performed By: #### L 100.0100, L501.5200, L501.2300, L500.4100, L500.4050, L501.9520 ####[facility] [address] [place], [address] Globulin (S) [Mass/Vol] 3.2 g/dL Normal 2.2-4.2 [facility] Comment on above: Order Comment: Comme nts: NPO at [place] prior to lipid panel Performed By: #### L 100.0100, L501.5200, L501.2300, L500.4100, L500.4050, L501.9520 ####[facility] [address] [place], [address] Glucose [Mass/Vol] 70 mg/dL Low 74-106 [facility] Comment on above: Order Comment: Comme nts: NPO at [place] prior to lipid panel Performed By: #### L 100.0100, L501.5200, L501.2300, L500.4100, L500.4050, L501.9520 ####[facility] [address] [place], [address] Potassium [Moles/Vol] 6.2 mmol/L Invalid Interpretation Code 3.5-5.1 [facility] Comment on above: Order Comment: Comme nts: NPO at [place] prior to lipid panel Result Comment: Crit ical Result(s) Called at: 08:08:23 02/23/2024 by:Donya bronson to Denisse Paul. Results read back by same. Performed By: #### L 100.0100, L501.5200, L501.2300, L500.4100, L500.4050, L501.9520 ####[facility] [address] [place], [address] Sodium [Moles/Vol] 138 mmol/L Normal 136-145 [facility] Comment on above: Order Comment: Comme nts: NPO at [place] prior to lipid panel Performed By: #### L 100.0100, L501.5200, L501.2300, L500.4100, L500.4050, L501.9520 ####[facility] [address], [address] T PROT 6.0 g/dL Low 6.4-8.2 [facility] Comment on above: Order Comment: Comme nts: NPO at [place] prior to lipid panel Performed By: #### L 100.0100, L501.5200, L501.2300, L500.4100, L500.4050, L501.9520 ####[facility] [address] [place], [address] Urea nitrogen [Mass/Vol] 60 mg/dL High 7-18 [facility] Comment on above: Order Comment: Comme nts: NPO at [place] prior to lipid panel Performed By: #### L 100.0100, L501.5200, L501.2300, L500.4100, L500.4050, L501.9520 ####[facility] [address] [place], [address] Consultation - Nephrologyon 02-23-2024 Consultation - Nephrology Normal [facility] ENTERIC PATHOGEN PANEL STOOL on 02-23-2024 EP PANEL Normal [facility] Comment on above: Performed By: #### M 100.637, M100.0605, M100.6796 ####[facility] [address], [address] High density lipoprotein (HD L) measurementOrdered By: Elsy Zafar on 02-23-2024 High density lipoprotein (HDL) measurement 46 mg/dL >40 [facility] Lipid Profileon 02-23-2024 Cholesterol [Mass/Vol] 114 mg/dL Normal 200 [facility] Comment on above: Order Comment: Comme nts: NPO at [place] prior to lipid panel Result Comment: <200 mg/dL Desirable 200-240 mg/dL Borderline >240 mg/dL High Risk Performed By: #### L 100.0100, L501.5200, L501.2300, L500.4100, L500.4050, L501.9520 ####[facility] [address] [place], [address] Cholesterol in HDL [Mass/Vol] 46 mg/dL Normal [facility] Comment on above: Order Comment: Comme nts: NPO at [place] prior to lipid panel Result Comment: The drugs N-Acetylcysteine and Metamizole may falselydepress this assay. Reference Range HDL <40 mg/dL Low HDL Cholesterol HDL >or= 60 mg/dL High HDL Cholesterol Performed By: #### L 100.0100, L501.5200, L501.2300, L500.4100, L500.4050, L501.9520 ####[facility] [id number] [place], [address] Cholesterol in LDL [Mass/Vol] 53 mg/dL Normal 0-130 [facility] Comment on above: Order Comment: Comme nts: NPO at [place] prior to lipid panel Performed By: #### L 100.0100, L501.5200, L501.2300, L500.4100, L500.4050, L501.9520 ####[facility] [address] [place], [address] Cholesterol in VLDL [Mass/Vol] 15 mg/dL Normal 5-40 [facility] Comment on above: Order Comment: Comme nts: NPO at [place] prior to lipid panel Performed By: #### L 100.0100, L501.5200, L501.2300, L500.4100, L500.4050, L501.9520 ####[facility] [address] [place], [address] Triglyceride [Mass/Vol] 75 mg/dL Normal [facility] Comment on above: Order Comment: Comme nts: NPO at [place] prior to lipid panel Result Comment: The drugs N-Acetylcysteine and Metamizole may falselydepress this assay.Serum Triglycerides Reference Interval Normal <150 mg/dL Borderline high 150 - 199 mg/dL High 200 - 499 mg/dL Very High > or = 500 mg/dL Performed By: #### L 100.0100, L501.5200, L501.2300, L500.4100, L500.4050, L501.9520 ####[facility] [address] [place], [address] Low density lipoprotein (LDL ) cholesterol measurementOrdered By: Elsy Zafar on 02-23-2024 Low density lipoprotein (LDL) cholesterol measurement 53 mg/dL 0-130 [facility] MR/CON.PCM.NEon 02-23-2024 MR/CON.PCM.NE Normal [facility] Magnesiumon 02-23-2024 Magnesium [Mass/Vol] 2.4 mg/dL Normal 1.6-2.6 [facility] Comment on above: Order Comment: Comme nts: NPO at [place] prior to lipid panel Performed By: #### L 100.0100, L501.5200, L501.2300, L500.4100, L500.4050, L501.9520 ####[facility] [address] [place], [place], [address] Magnesium measurementOrdered By: Esly Zafar on 02-23-2024 Magnesium measurement 2.4 mg/dL 1.6-2.6 [facility] No Panel InformationOrdered By: Elsy Zafar on 02-23-2024 52 U/L High 15-37 [facility] Phosphoruson 02-23-2024 Phosphate [Mass/Vol] 5.9 mg/dL High 2.5-4.9 [facility] Comment on above: Order Comment: Comme nts: NPO at [place] prior to lipid panel Performed By: #### L 100.0100, L501.5200, L501.2300, L500.4100, L500.4050, L501.9520 ####[facility] [address] [place], [address] Serum globulin measurementOr dered By: Elsy Zafar on 02-23-2024 Serum globulin measurement 3.2 g/dL 2.2-4.2 [facility] Stool Lactoferrin/WBCon 02-09 WBCST Is the patient receiving laxatives? N New/unexplained onset of 3 or more stools in past 24 hrs? Y Normal Reference Range = Negative Fecal WBC Lactoferrin A Positive: Fecal WBC Lactoferrin present A Normal [facility] Comment on above: Performed By: #### M 100.637, M100.0605, M100.6796 ####[facility] [address] [place], [address] TSH QnOrdered By: Elsy Felipe on 02-23-2024 Serum or plasma thyroid stimulating hormone (TSH) measurement (units/volume) 3.370 uIU/mL 0.358-3.740 [facility] Thyroid Stim Hormone (TSH)on 02-23-2024 TSH 3.370 uIU/mL Normal 0.358-3.740 [facility] Comment on above: Order Comment: Comme nts: [place] at [place] prior to lipid panel Performed By: #### L 100.0100, L501.5200, L501.2300, L500.4100, L500.4050, L501.9520 ####[facility] [address], [address] Total proteinOrdered By: Felicia Zafar on 02-23-2024 Total protein 6.0 g/dL Low 6.4-8.2 [facility] Triglycerides measurementOrd ered By: Elsy Zafar on 02-23-2024 Triglycerides measurement 75 mg/dL <199 [facility] Urine cultureOrdered By: Jena Bustamante on 02-23-2024 Urine culture Streptococcus infantarius infa Abnormal [facility] Urine culture Presumptive E. coli Abnormal [facility] Very low density lipoprotein (VLDL) cholesterol measurementOrdered By: Elsy Zafar on 02-23-2024 Very low density lipoprotein (VLDL) cholesterol measurement 15 mg/dL 5-40 [facility] 12 Lead EKGon 02-22-2024 12 Lead EKG Normal [facility] Basic Metabolic Profile (BMP )on 02-22-2024 BUN/CRE 20.1 RATIO High 10-20 [facility] Comment on above: Order Comment: 'TROP ' Serial specimen #1, #2 or #3: 1 Performed By: #### L 300.4310, L500.2500, L100.0100, L300.3900, L501.4020 ####[facility] [address] [place], [address] CA,Total 8.8 mg/dL Normal 8.5-10.1 [facility] Comment on above: Order Comment: 'TROP ' Serial specimen #1, #2 or #3: 1 Performed By: #### L 300.4310, L500.2500, L100.0100, L300.3900, L501.4020 ####[facility] [address] [place], [address] Chloride [Moles/Vol] 112 mmol/L High 98-107 [facility] Comment on above: Order Comment: 'TROP ' Serial specimen #1, #2 or #3: 1 Performed By: #### L 300.4310, L500.2500, L100.0100, L300.3900, L501.4020 ####[facility] [address] [place], [address] CO2 [Moles/Vol] 22.0 mmol/L Normal 21.0-32.0 [facility] Comment on above: Order Comment: 'TROP ' Serial specimen #1, #2 or #3: 1 Performed By: #### L 300.4310, L500.2500, L100.0100, L300.3900, L501.4020 ####[facility] [address] [place], [address] Creatinine [Mass/Vol] 3.29 mg/dL High 0.55-1.02 [facility] Comment on above: Order Comment: 'TROP ' Serial specimen #1, #2 or #3: 1 Result Comment: The validity of the calculated GFR GFRAA in patients over70 years has not been determined. Clinical correlation isessential. Performed By: #### L 300.4310, L500.2500, L100.0100, L300.3900, L501.4020 ####[facility] [address] [place], [address] ECRCL 8.53 ml/min Normal [facility] Comment on above: Order Comment: 'TROP ' Serial specimen #1, #2 or #3: 1 Performed By: #### L 300.4310, L500.2500, L100.0100, L300.3900, L501.4020 ####[facility] [address] [place], [address] EST GFR - AA 17 mL/min Low >60 [facility] Comment on above: Order Comment: 'TROP ' Serial specimen #1, #2 or #3: 1 Result Comment: Afri can Lebanese GFR Calc Performed By: #### L 300.4310, L500.2500, L100.0100, L300.3900, L501.4020 ####[facility] [address] [place], [address] GAP 5 Normal 5-15 [facility] Comment on above: Order Comment: 'TROP ' Serial specimen #1, #2 or #3: 1 Performed By: #### L 300.4310, L500.2500, L100.0100, L300.3900, L501.4020 ####[facility] [address] [place], [address] GFR/1.73 sq M.predicted among non-blacks MDRD (S/P/Bld) [Vol rate/Area] 14 mL/min/{1.73_m2} Low >60 [facility] Comment on above: Order Comment: 'TROP ' Serial specimen #1, #2 or #3: 1 Result Comment: Non- GFR Calc Performed By: #### L 300.4310, L500.2500, L100.0100, L300.3900, L501.4020 ####[facility] [address] [place], [address] Glucose [Mass/Vol] 94 mg/dL Normal 74-106 [facility] Comment on above: Order Comment: 'TROP ' Serial specimen #1, #2 or #3: 1 Performed By: #### L 300.4310, L500.2500, L100.0100, L300.3900, L501.4020 ####[facility] [address] [place], [address] Potassium [Moles/Vol] 6.3 mmol/L Invalid Interpretation Code 3.5-5.1 [facility] Comment on above: Order Comment: 'TROP ' Serial specimen #1, #2 or #3: 1 Result Comment: Crit ical Result(s) Called at: 17:41:47 02/22/2024 by: BRYON. Results read back by Jeri DILLON Performed By: #### L 300.4310, L500.2500, L100.0100, L300.3900, L501.4020 ####[facility] [address] [place], [address] Sodium [Moles/Vol] 139 mmol/L Normal 136-145 [facility] Comment on above: Order Comment: 'TROP ' Serial specimen #1, #2 or #3: 1 Performed By: #### L 300.4310, L500.2500, L100.0100, L300.3900, L501.4020 ####[facility] [address] [place], [address] Urea nitrogen [Mass/Vol] 66 mg/dL High 7-18 [facility] Comment on above: Order Comment: 'TROP ' Serial specimen #1, #2 or #3: 1 Performed By: #### L 300.4310, L500.2500, L100.0100, L300.3900, L501.4020 ####[facility] [address] [place], [address] CBC W/Diff, Automatedon 02-09 Absolute Lymph 1.38 X10 3/uL Normal 0.83-4.51 [facility] Comment on above: Performed By: #### L 300.4310, L500.2500, L100.0100, L300.3900, L501.4020 ####[facility] [address] [place], [address] Absolute Neut 6.0 X10 3/uL Normal 2.0-7.7 [facility] Comment on above: Performed By: #### L 300.4310, L500.2500, L100.0100, L300.3900, L501.4020 ####[facility] [address] [place], [address] Basophils/100 WBC (Bld) 0.7 % Normal 0-1 [facility] Comment on above: Performed By: #### L 300.4310, L500.2500, L100.0100, L300.3900, L501.4020 ####[facility] [address] [place], [address] Eosinophils/100 WBC (Bld) 1.9 % Normal 0-5 [facility] Comment on above: Performed By: #### L 300.4310, L500.2500, L100.0100, L300.3900, L501.4020 ####[facility] [address] [place], [address] Erythrocyte distribution width (RBC) [Ratio] 15.9 % High 11.6-14.6 [facility] Comment on above: Performed By: #### L 300.4310, L500.2500, L100.0100, L300.3900, L501.4020 ####[facility] [address] [place], [address] Hematocrit (Bld) [Volume fraction] 31.0 % Low 37-47 [facility] Comment on above: Performed By: #### L 300.4310, L500.2500, L100.0100, L300.3900, L501.4020 ####[facility] [address] [place], [address] Hemoglobin (Bld) [Mass/Vol] 9.7 g/dL Low 12.0-15.0 [facility] Comment on above: Performed By: #### L 300.4310, L500.2500, L100.0100, L300.3900, L501.4020 ####[facility] [address] [place], [address] IG% 0.600 Normal 0.0-0.9 [facility] Comment on above: Result Comment: IG% - Immature Granulocytes (promyelocytes, myelocytes andmetamyelocytes) > 1% indicates that a LEFT SHIFT is Present. Performed By: #### L 300.4310, L500.2500, L100.0100, L300.3900, L501.4020 ####[facility] [address] [place], [address] Lymphocytes/100 WBC (Bld) 16.6 % Low 19-41 [facility] Comment on above: Performed By: #### L 300.4310, L500.2500, L100.0100, L300.3900, L501.4020 ####[facility] [address] [place], [address] MCH (RBC) [Entitic mass] 30.1 pg Normal 27.0-32.0 [facility] Comment on above: Performed By: #### L 300.4310, L500.2500, L100.0100, L300.3900, L501.4020 ####[facility] [address] [place], [address] MCHC (RBC) [Mass/Vol] 31.3 g/dL Low 32-36 [facility] Comment on above: Performed By: #### L 300.4310, L500.2500, L100.0100, L300.3900, L501.4020 ####[facility] [address] [place], [address] MCV (RBC) [Entitic vol] 96.3 fL Normal 81-99 [facility] Comment on above: Performed By: #### L 300.4310, L500.2500, L100.0100, L300.3900, L501.4020 ####[facility] [address] [place], [address] Monocytes/100 WBC (Bld) 8.4 % Normal 0-10 [facility] Comment on above: Performed By: #### L 300.4310, L500.2500, L100.0100, L300.3900, L501.4020 ####[facility] [address] [place], [address] Neutrophils/100 WBC (Bld) 71.8 % High 47-70 [facility] Comment on above: Performed By: #### L 300.4310, L500.2500, L100.0100, L300.3900, L501.4020 ####[facility] [address] [place], [address] Nucleated RBC (Bld) [#/Vol] 0 10*3/uL Normal 0-5 [facility] Comment on above: Performed By: #### L 300.4310, L500.2500, L100.0100, L300.3900, L501.4020 ####[facility] [address] [place], [address] Platelet mean volume (Bld) [Entitic vol] 8.9 fL Normal 6.2-12.0 [facility] Comment on above: Performed By: #### L 300.4310, L500.2500, L100.0100, L300.3900, L501.4020 ####[facility] [address] [place], [address] Platelets (Bld) [#/Vol] 250 10*3/uL Normal 150-450 [facility] Comment on above: Performed By: #### L 300.4310, L500.2500, L100.0100, L300.3900, L501.4020 ####[facility] [address] [place], [address] RBC (Bld) [#/Vol] 3.22 10*6/uL Low 4.2-5.4 [facility] Comment on above: Performed By: #### L 300.4310, L500.2500, L100.0100, L300.3900, L501.4020 ####[facility] [address] [place], [address] RDW SD 56.4 fl High 35.1-43.9 [facility] Comment on above: Performed By: #### L 300.4310, L500.2500, L100.0100, L300.3900, L501.4020 ####[facility] [address] [place], [address] WBC (Bld) [#/Vol] 8.3 10*3/uL Normal 4.4-11.0 [facility] Comment on above: Performed By: #### L 300.4310, L500.2500, L100.0100, L300.3900, L501.4020 ####[facility] [address] [place], [address] Chest 1 Viewon 02-22-2024 Chest 1 View Normal [facility] Clarity (U)Ordered By: Stella Zafar on 02-22-2024 Urine clarity Clear Clear [facility] Color (U)Ordered By: Elsy Zafar on 02-22-2024 Urine color determination Yellow Yellow [facility] Creatinine (U) [Mass/Vol]Ord ered By: Elsy Zafar on 02-22-2024 Urine creatinine measurement (mass/volume) 20.00 mg/dL NO RANGE EST. [facility] Creatinine, Urine (random)on 02-22-2024 UR CREAT 20.00 mg/dL Normal NO RANGE EST. [facility] Comment on above: Performed By: #### L 502.0715, L501.1200 ####[facility] [address] [place], [address] Emergency Department Summary on 02-22-2024 Emergency Department Summary Normal [facility] H AND P Exam - Hospitaliston 02-22-2024 H&P Exam - Hospitalist Normal [facility] HbA1c (Bld) [Mass fraction]O rdered By: Elsy Zafra on 02-22-2024 Hemoglobin A1c percentage 5.3 % 3.8-5.6 [facility] Hemoglobin A1con 02-22-2024 HbA1c (Bld) [Mass fraction] 5.3 % Normal 3.8-5.6 [facility] Comment on above: Result Comment: Norm al < 5.7 % Prediabetic 5.7 - 6.4 % Diabetic >or= 6.5 % Please note range changes. Performed By: #### L 501.9985 ####[facility] [address] [place], [address] Kidney and Bladderon 025 Kidney and Bladder Normal [facility] L501.4020on 02-22-2024 TROPONIN-I HS 33 pg/mL Normal 3.0-54.0 [facility] Comment on above: Order Comment: 'TROP ' Serial specimen #1, #2 or #3: 1 Result Comment: Plea se Note: New Test Units and Gender Specific Reference Ranges. For more information see Policy Stat Procedure [place] High Sensitivity Troponin (TNIH) and attachments. Performed By: #### L 300.4310, L500.2500, L100.0100, L300.3900, L501.4020 ####[facility] [address] [place], [place], [address] Microscopic analysis of urin e for red blood cells (RBC)Ordered By: Elsy Zafar on 02-22-2024 Microscopic analysis of urine for red blood cells (RBC) 0 SEEN /hpf [facility] Partial Thromboplast Timeon 02-22-2024 aPTT Coag (Bld) [Time] 43.3 s High 24.1-36.2 [facility] Comment on above: Order Comment: CRITI MARIE VALUE CALLED TO [facility]02/22/24 1754 Myrtle Lollo.RESULTS READ BACK BY SAME. Performed By: #### L 300.4310, L500.2500, L100.0100, L300.3900, L501.4020 ####[facility] [address] [place], [place], [address] Prothrombin Time w/INRon INR Coag (PPP) [Relative time] 4.7 {INR} Invalid Interpretation Code [facility] Comment on above: Order Comment: CRITI MARIE VALUE CALLED TO [facility]02/22/24 1754 Myrtle Lollo.RESULTS READ BACK BY SAME. Performed By: #### L 300.4310, L500.2500, L100.0100, L300.3900, L501.4020 ####[facility] [address] [place], [place], [address] PT Coag (PPP) [Time] 45.5 s High 11.7-14.9 [facility] Comment on above: Order Comment: CRITI MARIE VALUE CALLED TO [facility]02/22/24 1754 Myrtle Lollo.RESULTS READ BACK BY SAME. Performed By: #### L 300.4310, L500.2500, L100.0100, L300.3900, L501.4020 ####[facility] [address] [place], [address] Quantitative urine urea nitr ogen measurementOrdered By: Elsy Zafar on 02-22-2024 Quantitative urine urea nitrogen measurement 224 mg/dL NO RANGE EST. [facility] STROKE Brain/Head without Co nton 02-22-2024 STROKE Brain/Head without Cont Normal [facility] STROKE CTA Head AND Neck W/C onon 02-22-2024 STROKE CTA Head AND Neck W/Con Normal [facility] Sodium urOrdered By: Elsy Zafar on 02-22-2024 Sodium ur 96 mmol/L Not Establ. [facility] Specific gravity (U) [Rel de nsity]Ordered By: Elsy Zafar on 02-22-2024 Urine specific gravity measurement 1.005 1.002-1.030 [facility] Troponin IOrdered By: Johnson ramos on 02-22-2024 Troponin I 33 pg/mL 3.0-54.0 [facility] Urea Nitrogen, Urineon 02-21 URINE UREA 224 mg/dL Normal NO RANGE EST. [facility] Comment on above: Performed By: #### L 502.0715, L501.1200 ####[facility] [address] [facility] [place], [address] Urinalysis, Completeon 02-21 WBC 0-5 SEEN Normal 0-5 [facility] Comment on above: Order Comment: COLLE CTOR TO SPECIFY Performed By: #### L 400.0001, L501.5500 ####[facility] [address] [place], [address] BACTERIA 0 SEEN Normal None Seen [facility] Comment on above: Order Comment: COLLE CTOR TO SPECIFY Performed By: #### L 400.0001, L501.5500 ####[facility] [address] [facility], [address] EPI,SQUAMOUS 0 SEEN Normal 5-10 [facility] Comment on above: Order Comment: COLLE CTOR TO SPECIFY Performed By: #### L 400.0001, L501.5500 ####[facility] [address] [place], [address] Mucus Ql (Urine sed) 0 SEEN Normal [facility] Comment on above: Order Comment: COLLE CTOR TO SPECIFY Performed By: #### L 400.0001, L501.5500 ####[facility] [address] [place], [address] RBC 0 SEEN Normal 0-5 [facility] Comment on above: Order Comment: JORY CTOR TO SPECIFY Performed By: #### L 400.0001, L501.5500 ####[facility] [address] [place], [address] Urine Sodiumon 02-22-2024 Sodium (U) [Moles/Vol] 96 mmol/L Normal Not Establ. [facility] Comment on above: Performed By: #### L 400.0001, L501.5500 ####[facility] [address] [place], [address] Urine blood detectionOrdered By: Elsy Zafar on 02-22-2024 Urine blood detection 25 /ul High Negative [facility] Urine glucose detectionOrder ed By: Elsy Zafar on 02-22-2024 Urine glucose detection Normal mg/dl Normal [facility] Urine total bilirubin detect ion by test stripOrdered By: Elsy Zafar on 02-22-2024 Urine total bilirubin detection by test strip Negative Negative [facility] White blood cell countOrdere d By: Elsy Zafar on 02-22-2024 White blood cell count 0-5 SEEN /hpf 0-5 [facility] aPTT Coag (PPP) [Time]Ordere d By: Johnson Retana on 02-22-2024 Activated partial thromboplastin time (aPTT) in platelet poor plasma by coagulation a 43.3 Seconds High 24.1-36.2 [facility] pH (U)Ordered By: Elsy Felipe on 02-22-2024 Urine pH 6.0 5.0 - 8.0 [facility] Brain without Contraston Brain without Contrast Normal [facility] 12 Lead EKG performed by BMS on 02-19-2024 12 Lead EKG performed by BMS Normal [facility] Cardiology Visit Reporton Cardiology Visit Report Normal [facility] Basic Metabolic Profile (BMP )on 02-05-2024 BUN Normal 7-18 [facility] Comment on above: Result Comment: Canc elled via OM: Order cancelled - Patient discharged Performed By: #### L 100.0100, L500.2500 ####[facility] [address] [place], [address] BUN/CRE Normal 10-20 [facility] Comment on above: Result Comment: Canc elled via OM: Order cancelled - Patient discharged Performed By: #### L 100.0100, L500.2500 ####[facility] [address] [place], [address] CA,Total Normal 8.5-10.1 [facility] Comment on above: Result Comment: Canc elled via OM: Order cancelled - Patient discharged Performed By: #### L 100.0100, L500.2500 ####[facility] [address] [place], [address] CL Normal 98-107 [facility] Comment on above: Result Comment: Canc elled via OM: Order cancelled - Patient discharged Performed By: #### L 100.0100, L500.2500 ####[facility] [address] [place], [address] CO2 Normal 21.0-32.0 [facility] Comment on above: Result Comment: Canc elled via OM: Order cancelled - Patient discharged Performed By: #### L 100.0100, L500.2500 ####[facility] [address] [place], [address] CREAT,SERUM Normal 0.55-1.02 [facility] Comment on above: Result Comment: Canc elled via OM: Order cancelled - Patient discharged Performed By: #### L 100.0100, L500.2500 ####[facility] [address] [place], [address] EST GFR Normal >60 [facility] Comment on above: Result Comment: Canc elled via OM: Order cancelled - Patient discharged Performed By: #### L 100.0100, L500.2500 ####[facility] [address] [place], [address] EST GFR - AA Normal >60 [facility] Comment on above: Result Comment: Canc elled via OM: Order cancelled - Patient discharged Performed By: #### L 100.0100, L500.2500 ####[facility] [address] [place], [address] GAP Normal 5-15 [facility] Comment on above: Result Comment: Canc elled via OM: Order cancelled - Patient discharged Performed By: #### L 100.0100, L500.2500 ####[facility] [address] [place], [address] GLU Normal 74-106 [facility] Comment on above: Result Comment: Canc elled via OM: Order cancelled - Patient discharged Performed By: #### L 100.0100, L500.2500 ####[facility] [address] [place], [address] Potassium Normal 3.5-5.1 [facility] Comment on above: Result Comment: Canc elled via OM: Order cancelled - Patient discharged Performed By: #### L 100.0100, L500.2500 ####[facility] [address] [place], [address] Basic Metabolic Profile (BMP) Normal 136-145 [facility] Comment on above: Result Comment: Canc elled via OM: Order cancelled - Patient discharged Performed By: #### L 100.0100, L500.2500 ####[facility] [address] [place], [address] CBC W/Diff, Automatedon 12-2 Absolute Neut Normal 2.0-7.7 [facility] Comment on above: Result Comment: Canc elled via OM: Order cancelled - Patient discharged Performed By: #### L 100.0100, L500.2500 ####[facility] [address] [place], [address] HCT Normal 37-47 [facility] Comment on above: Result Comment: Canc elled via OM: Order cancelled - Patient discharged Performed By: #### L 100.0100, L500.2500 ####[facility] [address] [place], [address] HGB Normal 12.0-15.0 [facility] Comment on above: Result Comment: Canc elled via OM: Order cancelled - Patient discharged Performed By: #### L 100.0100, L500.2500 ####[facility] [address] [place], [address] MCH Normal 27.0-32.0 [facility] Comment on above: Result Comment: Canc elled via OM: Order cancelled - Patient discharged Performed By: #### L 100.0100, L500.2500 ####[facility] [address] [place], [address] MCHC Normal 32-36 [facility] Comment on above: Result Comment: Canc elled via OM: Order cancelled - Patient discharged Performed By: #### L 100.0100, L500.2500 ####[facility] [address] [place], [address] MCV Normal 81-99 [facility] Comment on above: Result Comment: Canc elled via OM: Order cancelled - Patient discharged Performed By: #### L 100.0100, L500.2500 ####[facility] [address] [place], [address] NEUT% Normal 47-70 [facility] Comment on above: Result Comment: Canc elled via OM: Order cancelled - Patient discharged Performed By: #### L 100.0100, L500.2500 ####[facility] [address] [place], [address] PLT Normal 150-450 [facility] Comment on above: Result Comment: Canc elled via OM: Order cancelled - Patient discharged Performed By: #### L 100.0100, L500.2500 ####[facility] [address] [place], [address] RBC Normal 4.2-5.4 [facility] Comment on above: Result Comment: Canc elled via OM: Order cancelled - Patient discharged Performed By: #### L 100.0100, L500.2500 ####[facility] [address] [place], [address] RDW CV Normal 11.6-14.6 [facility] Comment on above: Result Comment: Canc elled via OM: Order cancelled - Patient discharged Performed By: #### L 100.0100, L500.2500 ####[facility] [address] [place], [address] RDW SD Normal 35.1-43.9 [facility] Comment on above: Result Comment: Canc elled via OM: Order cancelled - Patient discharged Performed By: #### L 100.0100, L500.2500 ####[facility] [address] [place], [address] WBC Normal 4.4-11.0 [facility] Comment on above: Result Comment: Canc elled via OM: Order cancelled - Patient discharged Performed By: #### L 100.0100, L500.2500 ####[facility] [address] [place], [address] Basic Metabolic Profile (BMP )on 02-04-2024 BUN Normal 7-18 [facility] Comment on above: Result Comment: Canc elled via OM: Order cancelled - Patient discharged Performed By: #### L 500.2500, L100.0100 ####[facility] [address] [place], [address] BUN/CRE Normal 10-20 [facility] Comment on above: Result Comment: Canc elled via OM: Order cancelled - Patient discharged Performed By: #### L 500.2500, L100.0100 ####[facility] [address] [place], [address] CA,Total Normal 8.5-10.1 [facility] Comment on above: Result Comment: Canc elled via OM: Order cancelled - Patient discharged Performed By: #### L 500.2500, L100.0100 ####[facility] [address] [place], [address] CL Normal 98-107 [facility] Comment on above: Result Comment: Canc elled via OM: Order cancelled - Patient discharged Performed By: #### L 500.2500, L100.0100 ####[facility] [address] [place], [address] CO2 Normal 21.0-32.0 [facility] Comment on above: Result Comment: Canc elled via OM: Order cancelled - Patient discharged Performed By: #### L 500.2500, L100.0100 ####[facility] [address] [place], [address] CREAT,SERUM Normal 0.55-1.02 [facility] Comment on above: Result Comment: Canc elled via OM: Order cancelled - Patient discharged Performed By: #### L 500.2500, L100.0100 ####[facility] [address] [place], [address] EST GFR Normal >60 [facility] Comment on above: Result Comment: Canc elled via OM: Order cancelled - Patient discharged Performed By: #### L 500.2500, L100.0100 ####[facility] [address] [place], [address] EST GFR - AA Normal >60 [facility] Comment on above: Result Comment: Canc elled via OM: Order cancelled - Patient discharged Performed By: #### L 500.2500, L100.0100 ####[facility] [address] [place], [address] GAP Normal 5-15 [facility] Comment on above: Result Comment: Canc elled via OM: Order cancelled - Patient discharged Performed By: #### L 500.2500, L100.0100 ####[facility] [address] [place], [address] GLU Normal 74-106 [facility] Comment on above: Result Comment: Canc elled via OM: Order cancelled - Patient discharged Performed By: #### L 500.2500, L100.0100 ####[facility] [address] [place], [address] Potassium Normal 3.5-5.1 [facility] Comment on above: Result Comment: Canc elled via OM: Order cancelled - Patient discharged Performed By: #### L 500.2500, L100.0100 ####[facility] [address] [place], [address] Basic Metabolic Profile (BMP) Normal 136-145 [facility] Comment on above: Result Comment: Canc elled via OM: Order cancelled - Patient discharged Performed By: #### L 500.2500, L100.0100 ####[facility] [address] [place], [address] CBC W/Diff, Automatedon 12-2 Absolute Neut Normal 2.0-7.7 [facility] Comment on above: Result Comment: Canc elled via OM: Order cancelled - Patient discharged Performed By: #### L 500.2500, L100.0100 ####[facility] [address] [place], [address] HCT Normal 37-47 [facility] Comment on above: Result Comment: Canc elled via OM: Order cancelled - Patient discharged Performed By: #### L 500.2500, L100.0100 ####[facility] [address] [place], [address] HGB Normal 12.0-15.0 [facility] Comment on above: Result Comment: Canc elled via OM: Order cancelled - Patient discharged Performed By: #### L 500.2500, L100.0100 ####[facility] [address] [place], [address] MCH Normal 27.0-32.0 [facility] Comment on above: Result Comment: Canc elled via OM: Order cancelled - Patient discharged Performed By: #### L 500.2500, L100.0100 ####[facility] [address] [place], [address] MCHC Normal 32-36 [facility] Comment on above: Result Comment: Canc elled via OM: Order cancelled - Patient discharged Performed By: #### L 500.2500, L100.0100 ####[facility] [address] [place], [address] MCV Normal 81-99 [facility] Comment on above: Result Comment: Canc elled via OM: Order cancelled - Patient discharged Performed By: #### L 500.2500, L100.0100 ####[facility] [address] [place], [address] NEUT% Normal 47-70 [facility] Comment on above: Result Comment: Canc elled via OM: Order cancelled - Patient discharged Performed By: #### L 500.2500, L100.0100 ####[facility] [address] [place], [address] PLT Normal 150-450 [facility] Comment on above: Result Comment: Canc elled via OM: Order cancelled - Patient discharged Performed By: #### L 500.2500, L100.0100 ####[facility] [address] [place], [address] RBC Normal 4.2-5.4 [facility] Comment on above: Result Comment: Canc elled via OM: Order cancelled - Patient discharged Performed By: #### L 500.2500, L100.0100 ####[facility] [address] [place], [address] RDW CV Normal 11.6-14.6 [facility] Comment on above: Result Comment: Canc elled via OM: Order cancelled - Patient discharged Performed By: #### L 500.2500, L100.0100 ####[facility] [address] [place], [address] RDW SD Normal 35.1-43.9 [facility] Comment on above: Result Comment: Canc elled via OM: Order cancelled - Patient discharged Performed By: #### L 500.2500, L100.0100 ####[facility] [address] [place], [address] WBC Normal 4.4-11.0 [facility] Comment on above: Result Comment: Canc elled via OM: Order cancelled - Patient discharged Performed By: #### L 500.2500, L100.0100 ####[facility] [address] [place], [address] Basic Metabolic Profile (BMP )on 02-03-2024 BUN Normal 7-18 [facility] Comment on above: Result Comment: Canc elled via OM: Order cancelled - Patient discharged Performed By: #### L 100.0100, L500.2500 ####[facility] [address] [place], [address] BUN/CRE Normal 10-20 [facility] Comment on above: Result Comment: Canc elled via OM: Order cancelled - Patient discharged Performed By: #### L 100.0100, L500.2500 ####[facility] [address] [place], [address] CA,Total Normal 8.5-10.1 [facility] Comment on above: Result Comment: Canc elled via OM: Order cancelled - Patient discharged Performed By: #### L 100.0100, L500.2500 ####[facility] [address] [place], [address] CL Normal 98-107 [facility] Comment on above: Result Comment: Canc elled via OM: Order cancelled - Patient discharged Performed By: #### L 100.0100, L500.2500 ####[facility] [address] [place], [address] CO2 Normal 21.0-32.0 [facility] Comment on above: Result Comment: Canc elled via OM: Order cancelled - Patient discharged Performed By: #### L 100.0100, L500.2500 ####[facility] [address] [place], [address] CREAT,SERUM Normal 0.55-1.02 [facility] Comment on above: Result Comment: Canc elled via OM: Order cancelled - Patient discharged Performed By: #### L 100.0100, L500.2500 ####[facility] [address] [place], [address] EST GFR Normal >60 [facility] Comment on above: Result Comment: Canc elled via OM: Order cancelled - Patient discharged Performed By: #### L 100.0100, L500.2500 ####[facility] [address] [place], [address] EST GFR - AA Normal >60 [facility] Comment on above: Result Comment: Canc elled via OM: Order cancelled - Patient discharged Performed By: #### L 100.0100, L500.2500 ####[facility] [address] [place], [address] GAP Normal 5-15 [facility] Comment on above: Result Comment: Canc elled via OM: Order cancelled - Patient discharged Performed By: #### L 100.0100, L500.2500 ####[facility] [address] [place], [address] GLU Normal 74-106 [facility] Comment on above: Result Comment: Canc elled via OM: Order cancelled - Patient discharged Performed By: #### L 100.0100, L500.2500 ####[facility] [address] [place], [address] Potassium Normal 3.5-5.1 [facility] Comment on above: Result Comment: Canc elled via OM: Order cancelled - Patient discharged Performed By: #### L 100.0100, L500.2500 ####[facility] [address] [place], [address] Basic Metabolic Profile (BMP) Normal 136-145 [facility] Comment on above: Result Comment: Canc elled via OM: Order cancelled - Patient discharged Performed By: #### L 100.0100, L500.2500 ####[facility] [address] [place], [address] CBC W/Diff, Automatedon 12-2 Absolute Neut Normal 2.0-7.7 [facility] Comment on above: Result Comment: Canc elled via OM: Order cancelled - Patient discharged Performed By: #### L 100.0100, L500.2500 ####[facility] [address] [place], [address] HCT Normal 37-47 [facility] Comment on above: Result Comment: Canc elled via OM: Order cancelled - Patient discharged Performed By: #### L 100.0100, L500.2500 ####[facility] [address] [place], [address] HGB Normal 12.0-15.0 [facility] Comment on above: Result Comment: Canc elled via OM: Order cancelled - Patient discharged Performed By: #### L 100.0100, L500.2500 ####[facility] [address] [place], [address] MCH Normal 27.0-32.0 [facility] Comment on above: Result Comment: Canc elled via OM: Order cancelled - Patient discharged Performed By: #### L 100.0100, L500.2500 ####[facility] [address] [place], [address] MCHC Normal 32-36 [facility] Comment on above: Result Comment: Canc elled via OM: Order cancelled - Patient discharged Performed By: #### L 100.0100, L500.2500 ####[facility] [address] [place], [address] MCV Normal 81-99 [facility] Comment on above: Result Comment: Canc elled via OM: Order cancelled - Patient discharged Performed By: #### L 100.0100, L500.2500 ####[facility] [address] [place], [address] NEUT% Normal 47-70 [facility] Comment on above: Result Comment: Canc elled via OM: Order cancelled - Patient discharged Performed By: #### L 100.0100, L500.2500 ####[facility] [address] [place], [address] PLT Normal 150-450 [facility] Comment on above: Result Comment: Canc elled via OM: Order cancelled - Patient discharged Performed By: #### L 100.0100, L500.2500 ####[facility] [address] [place], [address] RBC Normal 4.2-5.4 [facility] Comment on above: Result Comment: Canc elled via OM: Order cancelled - Patient discharged Performed By: #### L 100.0100, L500.2500 ####[facility] [address] [place], [address] RDW CV Normal 11.6-14.6 [facility] Comment on above: Result Comment: Canc elled via OM: Order cancelled - Patient discharged Performed By: #### L 100.0100, L500.2500 ####[facility] [address] [place], [address] RDW SD Normal 35.1-43.9 [facility] Comment on above: Result Comment: Canc elled via OM: Order cancelled - Patient discharged Performed By: #### L 100.0100, L500.2500 ####[facility] [address] [place], [address] WBC Normal 4.4-11.0 [facility] Comment on above: Result Comment: Canc elled via OM: Order cancelled - Patient discharged Performed By: #### L 100.0100, L500.2500 ####[facility] [address] [place], [address] Basic Metabolic Profile (BMP )on 02-02-2024 BUN Normal 7-18 [facility] Comment on above: Result Comment: Canc elled via OM: Order cancelled - Patient discharged Performed By: #### L 100.0100, L500.2500 ####[facility] [address] [place], [address] BUN/CRE Normal 10-20 [facility] Comment on above: Result Comment: Canc elled via OM: Order cancelled - Patient discharged Performed By: #### L 100.0100, L500.2500 ####[facility] [address] [place], [address] CA,Total Normal 8.5-10.1 [facility] Comment on above: Result Comment: Canc elled via OM: Order cancelled - Patient discharged Performed By: #### L 100.0100, L500.2500 ####[facility] [address] [place], [address] CL Normal 98-107 [facility] Comment on above: Result Comment: Canc elled via OM: Order cancelled - Patient discharged Performed By: #### L 100.0100, L500.2500 ####[facility] [address] [place], [address] CO2 Normal 21.0-32.0 [facility] Comment on above: Result Comment: Canc elled via OM: Order cancelled - Patient discharged Performed By: #### L 100.0100, L500.2500 ####[facility] [address] [place], [address] CREAT,SERUM Normal 0.55-1.02 [facility] Comment on above: Result Comment: Canc elled via OM: Order cancelled - Patient discharged Performed By: #### L 100.0100, L500.2500 ####[facility] [address] [place], [address] EST GFR Normal >60 [facility] Comment on above: Result Comment: Canc elled via OM: Order cancelled - Patient discharged Performed By: #### L 100.0100, L500.2500 ####[facility] [address] [place], [address] EST GFR - AA Normal >60 [facility] Comment on above: Result Comment: Canc elled via OM: Order cancelled - Patient discharged Performed By: #### L 100.0100, L500.2500 ####[facility] [address] [place], [address] GAP Normal 5-15 [facility] Comment on above: Result Comment: Canc elled via OM: Order cancelled - Patient discharged Performed By: #### L 100.0100, L500.2500 ####[facility] [address] [place], [address] GLU Normal 74-106 [facility] Comment on above: Result Comment: Canc elled via OM: Order cancelled - Patient discharged Performed By: #### L 100.0100, L500.2500 ####[facility] [address] [place], [address] Potassium Normal 3.5-5.1 [facility] Comment on above: Result Comment: Canc elled via OM: Order cancelled - Patient discharged Performed By: #### L 100.0100, L500.2500 ####[facility] [address] [place], [address] Basic Metabolic Profile (BMP) Normal 136-145 [facility] Comment on above: Result Comment: Canc elled via OM: Order cancelled - Patient discharged Performed By: #### L 100.0100, L500.2500 ####[facility] [address] [place], [address] CBC W/Diff, Automatedon 12-2 Absolute Neut Normal 2.0-7.7 [facility] Comment on above: Result Comment: Canc elled via OM: Order cancelled - Patient discharged Performed By: #### L 100.0100, L500.2500 ####[facility] [address] [place], [address] HCT Normal 37-47 [facility] Comment on above: Result Comment: Canc elled via OM: Order cancelled - Patient discharged Performed By: #### L 100.0100, L500.2500 ####[facility] [address] [place], [address] HGB Normal 12.0-15.0 [facility] Comment on above: Result Comment: Canc elled via OM: Order cancelled - Patient discharged Performed By: #### L 100.0100, L500.2500 ####[facility] [address] [place], [address] MCH Normal 27.0-32.0 [facility] Comment on above: Result Comment: Canc elled via OM: Order cancelled - Patient discharged Performed By: #### L 100.0100, L500.2500 ####[facility] [address] [place], [address] MCHC Normal 32-36 [facility] Comment on above: Result Comment: Canc elled via OM: Order cancelled - Patient discharged Performed By: #### L 100.0100, L500.2500 ####[facility] [address] [place], [address] MCV Normal 81-99 [facility] Comment on above: Result Comment: Canc elled via OM: Order cancelled - Patient discharged Performed By: #### L 100.0100, L500.2500 ####[facility] [address] [place], [address] NEUT% Normal 47-70 [facility] Comment on above: Result Comment: Canc elled via OM: Order cancelled - Patient discharged Performed By: #### L 100.0100, L500.2500 ####[facility] [address] [place], [address] PLT Normal 150-450 [facility] Comment on above: Result Comment: Canc elled via OM: Order cancelled - Patient discharged Performed By: #### L 100.0100, L500.2500 ####[facility] [address] [place], [address] RBC Normal 4.2-5.4 [facility] Comment on above: Result Comment: Canc elled via OM: Order cancelled - Patient discharged Performed By: #### L 100.0100, L500.2500 ####[facility] [address] [place], [address] RDW CV Normal 11.6-14.6 [facility] Comment on above: Result Comment: Canc elled via OM: Order cancelled - Patient discharged Performed By: #### L 100.0100, L500.2500 ####[facility] [address] [place], [address] RDW SD Normal 35.1-43.9 [facility] Comment on above: Result Comment: Canc elled via OM: Order cancelled - Patient discharged Performed By: #### L 100.0100, L500.2500 ####[facility] [address] [place], [address] WBC Normal 4.4-11.0 [facility] Comment on above: Result Comment: Canc elled via OM: Order cancelled - Patient discharged Performed By: #### L 100.0100, L500.2500 ####[facility] [address] [place], [address] Basic Metabolic Profile (BMP )on 02-01-2024 BUN Normal 7-18 [facility] Comment on above: Result Comment: Canc elled via OM: Order cancelled - Patient discharged Performed By: #### L 100.0100, L500.2500 ####[facility] [address] [place], [address] BUN/CRE Normal 10-20 [facility] Comment on above: Result Comment: Canc elled via OM: Order cancelled - Patient discharged Performed By: #### L 100.0100, L500.2500 ####[facility] [address] [place], [address] CA,Total Normal 8.5-10.1 [facility] Comment on above: Result Comment: Canc elled via OM: Order cancelled - Patient discharged Performed By: #### L 100.0100, L500.2500 ####[facility] [facility] [address] [place], [address] CL Normal 98-107 [facility] Comment on above: Result Comment: Canc elled via OM: Order cancelled - Patient discharged Performed By: #### L 100.0100, L500.2500 ####[facility] [address] [place], [address] CO2 Normal 21.0-32.0 [facility] Comment on above: Result Comment: Canc elled via OM: Order cancelled - Patient discharged Performed By: #### L 100.0100, L500.2500 ####[facility] [address] [place], [address] CREAT,SERUM Normal 0.55-1.02 [facility] Comment on above: Result Comment: Canc elled via OM: Order cancelled - Patient discharged Performed By: #### L 100.0100, L500.2500 ####[facility] [address] [place], [address] EST GFR Normal >60 [facility] Comment on above: Result Comment: Canc elled via OM: Order cancelled - Patient discharged Performed By: #### L 100.0100, L500.2500 ####[facility] [address] [place], [address] EST GFR - AA Normal >60 [facility] Comment on above: Result Comment: Canc elled via OM: Order cancelled - Patient discharged Performed By: #### L 100.0100, L500.2500 ####[facility] [address] [place], [address] GAP Normal 5-15 [facility] Comment on above: Result Comment: Canc elled via OM: Order cancelled - Patient discharged Performed By: #### L 100.0100, L500.2500 ####[facility] [address] [place], [address] GLU Normal 74-106 [facility] Comment on above: Result Comment: Canc elled via OM: Order cancelled - Patient discharged Performed By: #### L 100.0100, L500.2500 ####[facility] [address] [place], [address] Potassium Normal 3.5-5.1 [facility] Comment on above: Result Comment: Canc elled via OM: Order cancelled - Patient discharged Performed By: #### L 100.0100, L500.2500 ####[facility] [address] [place], [address] Basic Metabolic Profile (BMP) Normal 136-145 [facility] Comment on above: Result Comment: Canc elled via OM: Order cancelled - Patient discharged Performed By: #### L 100.0100, L500.2500 ####[facility] [address] [place], [address] CBC W/Diff, Automatedon 12-2 Absolute Neut Normal 2.0-7.7 [facility] Comment on above: Result Comment: Canc elled via OM: Order cancelled - Patient discharged Performed By: #### L 100.0100, L500.2500 ####[facility] [address] [place], [address] HCT Normal 37-47 [facility] Comment on above: Result Comment: Canc elled via OM: Order cancelled - Patient discharged Performed By: #### L 100.0100, L500.2500 ####[facility] [address] [place], [address] HGB Normal 12.0-15.0 [facility] Comment on above: Result Comment: Canc elled via OM: Order cancelled - Patient discharged Performed By: #### L 100.0100, L500.2500 ####[facility] [address] [place], [address] MCH Normal 27.0-32.0 [facility] Comment on above: Result Comment: Canc elled via OM: Order cancelled - Patient discharged Performed By: #### L 100.0100, L500.2500 ####[facility] [address] [place], [address] MCHC Normal 32-36 [facility] Comment on above: Result Comment: Canc elled via OM: Order cancelled - Patient discharged Performed By: #### L 100.0100, L500.2500 ####[facility] [address] [place], [address] MCV Normal 81-99 [facility] Comment on above: Result Comment: Canc elled via OM: Order cancelled - Patient discharged Performed By: #### L 100.0100, L500.2500 ####[facility] [address] [place], [address] NEUT% Normal 47-70 [facility] Comment on above: Result Comment: Canc elled via OM: Order cancelled - Patient discharged Performed By: #### L 100.0100, L500.2500 ####[facility] [address] [place], [address] PLT Normal 150-450 [facility] Comment on above: Result Comment: Canc elled via OM: Order cancelled - Patient discharged Performed By: #### L 100.0100, L500.2500 ####[facility] [address] [place], [address] RBC Normal 4.2-5.4 [facility] Comment on above: Result Comment: Canc elled via OM: Order cancelled - Patient discharged Performed By: #### L 100.0100, L500.2500 ####[facility] [address] [place], [address] RDW CV Normal 11.6-14.6 [facility] Comment on above: Result Comment: Canc elled via OM: Order cancelled - Patient discharged Performed By: #### L 100.0100, L500.2500 ####[facility] [address] [place], [address] RDW SD Normal 35.1-43.9 [facility] Comment on above: Result Comment: Canc elled via OM: Order cancelled - Patient discharged Performed By: #### L 100.0100, L500.2500 ####[facility] [address] [place], [address] WBC Normal 4.4-11.0 [facility] Comment on above: Result Comment: Canc elled via OM: Order cancelled - Patient discharged Performed By: #### L 100.0100, L500.2500 ####[facility] [address] [place], [address] Basic Metabolic Profile (BMP )on 01-31-2024 BUN Normal 7-18 [facility] Comment on above: Result Comment: Canc elled via OM: Order cancelled - Patient discharged Performed By: #### L 100.0100, L500.2500 ####[facility] [address] [place], [address] BUN/CRE Normal 10-20 [facility] Comment on above: Result Comment: Canc elled via OM: Order cancelled - Patient discharged Performed By: #### L 100.0100, L500.2500 ####[facility] [address] [place], [address] CA,Total Normal 8.5-10.1 [facility] Comment on above: Result Comment: Canc elled via OM: Order cancelled - Patient discharged Performed By: #### L 100.0100, L500.2500 ####[facility] [address] [place], [address] CL Normal 98-107 [facility] Comment on above: Result Comment: Canc elled via OM: Order cancelled - Patient discharged Performed By: #### L 100.0100, L500.2500 ####[facility] [address] [place], [address] CO2 Normal 21.0-32.0 [facility] Comment on above: Result Comment: Canc elled via OM: Order cancelled - Patient discharged Performed By: #### L 100.0100, L500.2500 ####[facility] [address] [place], [address] CREAT,SERUM Normal 0.55-1.02 [facility] Comment on above: Result Comment: Canc elled via OM: Order cancelled - Patient discharged Performed By: #### L 100.0100, L500.2500 ####[facility] [address] [place], [address] EST GFR Normal >60 [facility] Comment on above: Result Comment: Canc elled via OM: Order cancelled - Patient discharged Performed By: #### L 100.0100, L500.2500 ####[facility] [address] [place], [address] EST GFR - AA Normal >60 [facility] Comment on above: Result Comment: Canc elled via OM: Order cancelled - Patient discharged Performed By: #### L 100.0100, L500.2500 ####[facility] [address] [place], [address] GAP Normal 5-15 [facility] Comment on above: Result Comment: Canc elled via OM: Order cancelled - Patient discharged Performed By: #### L 100.0100, L500.2500 ####[facility] [address] [place], [address] GLU Normal 74-106 [facility] Comment on above: Result Comment: Canc elled via OM: Order cancelled - Patient discharged Performed By: #### L 100.0100, L500.2500 ####[facility] [address] [place], [address] Potassium Normal 3.5-5.1 [facility] Comment on above: Result Comment: Canc elled via OM: Order cancelled - Patient discharged Performed By: #### L 100.0100, L500.2500 ####[facility] [address] [place], [address] Basic Metabolic Profile (BMP) Normal 136-145 [facility] Comment on above: Result Comment: Canc elled via OM: Order cancelled - Patient discharged Performed By: #### L 100.0100, L500.2500 ####[facility] [address] [place], [address] CBC W/Diff, Automatedon 12-2 Absolute Neut Normal 2.0-7.7 [facility] Comment on above: Result Comment: Canc elled via OM: Order cancelled - Patient discharged Performed By: #### L 100.0100, L500.2500 ####[facility] [address] [place], [address] HCT Normal 37-47 [facility] Comment on above: Result Comment: Canc elled via OM: Order cancelled - Patient discharged Performed By: #### L 100.0100, L500.2500 ####[facility] [address] [place], [address] HGB Normal 12.0-15.0 [facility] Comment on above: Result Comment: Canc elled via OM: Order cancelled - Patient discharged Performed By: #### L 100.0100, L500.2500 ####[facility] [address] [place], [address] MCH Normal 27.0-32.0 [facility] Comment on above: Result Comment: Canc elled via OM: Order cancelled - Patient discharged Performed By: #### L 100.0100, L500.2500 ####[facility] [address] [place], [address] MCHC Normal 32-36 [facility] Comment on above: Result Comment: Canc elled via OM: Order cancelled - Patient discharged Performed By: #### L 100.0100, L500.2500 ####[facility] [address] [place], [address] MCV Normal 81-99 [facility] Comment on above: Result Comment: Canc elled via OM: Order cancelled - Patient discharged Performed By: #### L 100.0100, L500.2500 ####[facility] [address] [place], [address] NEUT% Normal 47-70 [facility] Comment on above: Result Comment: Canc elled via OM: Order cancelled - Patient discharged Performed By: #### L 100.0100, L500.2500 ####[facility] [address] [place], [address] PLT Normal 150-450 [facility] Comment on above: Result Comment: Canc elled via OM: Order cancelled - Patient discharged Performed By: #### L 100.0100, L500.2500 ####[facility] [address] [place], [address] RBC Normal 4.2-5.4 [facility] Comment on above: Result Comment: Canc elled via OM: Order cancelled - Patient discharged Performed By: #### L 100.0100, L500.2500 ####[facility] [address] [place], [address] RDW CV Normal 11.6-14.6 [facility] Comment on above: Result Comment: Canc elled via OM: Order cancelled - Patient discharged Performed By: #### L 100.0100, L500.2500 ####[facility] [address] [place], [address] RDW SD Normal 35.1-43.9 [facility] Comment on above: Result Comment: Canc elled via OM: Order cancelled - Patient discharged Performed By: #### L 100.0100, L500.2500 ####[facility] [address] [place], [address] WBC Normal 4.4-11.0 [facility] Comment on above: Result Comment: Canc elled via OM: Order cancelled - Patient discharged Performed By: #### L 100.0100, L500.2500 ####[facility] [address] [place], [address] Absolute neutrophil countOrd ered By: Clotilde Tamayo on 01-30-2024 Absolute neutrophil count 5.8 X10^3/uL 2.0-7.7 [facility] Basic Metabolic Profile (BMP )on 01-30-2024 BUN/CRE 21.7 RATIO High 10-20 [facility] Comment on above: Performed By: #### L 500.2500, L100.0100 ####[facility] [address] [place], [address] CA,Total 8.4 mg/dL Low 8.5-10.1 [facility] Comment on above: Performed By: #### L 500.2500, L100.0100 ####[facility] [address] [place], [address] Chloride [Moles/Vol] 103 mmol/L Normal 98-107 [facility] Comment on above: Performed By: #### L 500.2500, L100.0100 ####[facility] [address] [place], [address] CO2 [Moles/Vol] 27.0 mmol/L Normal 21.0-32.0 [facility] Comment on above: Performed By: #### L 500.2500, L100.0100 ####[facility] [address] [place], [address] Creatinine [Mass/Vol] 1.38 mg/dL High 0.55-1.02 [facility] Comment on above: Result Comment: The validity of the calculated GFR GFRAA in patients over70 years has not been determined. Clinical correlation isessential. Performed By: #### L 500.2500, L100.0100 ####[facility] [address] [place], [address] ECRCL 21.02 ml/min Normal [facility] Comment on above: Performed By: #### L 500.2500, L100.0100 ####[facility] [address] [place], [address] EST GFR - AA 47 mL/min Low >60 [facility] Comment on above: Result Comment: Afri can Lebanese GFR Calc Performed By: #### L 500.2500, L100.0100 ####[facility] [address] [place], [address] GAP 8 Normal 5-15 [facility] Comment on above: Performed By: #### L 500.2500, L100.0100 ####[facility] [address] [place], [address] GFR/1.73 sq M.predicted among non-blacks MDRD (S/P/Bld) [Vol rate/Area] 39 mL/min/{1.73_m2} Low >60 [facility] Comment on above: Result Comment: Non- GFR Calc Performed By: #### L 500.2500, L100.0100 ####[facility] [address] [place], [address] Glucose [Mass/Vol] 87 mg/dL Normal 74-106 [facility] Comment on above: Performed By: #### L 500.2500, L100.0100 ####[facility] [address] [place], [address] Potassium [Moles/Vol] 3.0 mmol/L Low 3.5-5.1 [facility] Comment on above: Performed By: #### L 500.2500, L100.0100 ####[facility] [address] [place], [address] Sodium [Moles/Vol] 138 mmol/L Normal 136-145 [facility] Comment on above: Performed By: #### L 500.2500, L100.0100 ####[facility] [address] [place], [address] Urea nitrogen [Mass/Vol] 30 mg/dL High 7-18 [facility] Comment on above: Performed By: #### L 500.2500, L100.0100 ####[facility] [address] [place], [address] Basophil percentageOrdered B y: Clotilde Tamayo on 01-30-2024 Basophil percentage 0.5 % 0-1 [facility] Blood urea nitrogen (BUN)/cr eatinine ratioOrdered By: Clotilde Tamayo on 01-30-2024 Blood urea nitrogen (BUN)/creatinine ratio 21.7 RATIO High 10-20 [facility] CBC W/Diff, Automatedon 12-2 Absolute Lymph 0.94 X10 3/uL Normal 0.83-4.51 [facility] Comment on above: Performed By: #### L 500.2500, L100.0100 ####[facility] [address] [place], [address] Absolute Neut 5.8 X10 3/uL Normal 2.0-7.7 [facility] Comment on above: Performed By: #### L 500.2500, L100.0100 ####[facility] [address] [place], [address] Basophils/100 WBC (Bld) 0.5 % Normal 0-1 [facility] Comment on above: Performed By: #### L 500.2500, L100.0100 ####[facility] [address] [place], [address] Eosinophils/100 WBC (Bld) 3.1 % Normal 0-5 [facility] Comment on above: Performed By: #### L 500.2500, L100.0100 ####[facility] [address] [place], [address] Erythrocyte distribution width (RBC) [Ratio] 18.6 % High 11.6-14.6 [facility] Comment on above: Performed By: #### L 500.2500, L100.0100 ####[facility] [address] [place], [address] Hematocrit (Bld) [Volume fraction] 28.0 % Low 37-47 [facility] Comment on above: Performed By: #### L 500.2500, L100.0100 ####[facility] [address] [place], [address] Hemoglobin (Bld) [Mass/Vol] 9.0 g/dL Low 12.0-15.0 [facility] Comment on above: Performed By: #### L 500.2500, L100.0100 ####[facility] [address] [place], [address] IG% 0.500 Normal 0.0-0.9 [facility] Comment on above: Result Comment: IG% - Immature Granulocytes (promyelocytes, myelocytes andmetamyelocytes) > 1% indicates that a LEFT SHIFT is Present. Performed By: #### L 500.2500, L100.0100 ####[facility] [address] [place], [address] Lymphocytes/100 WBC (Bld) 12.3 % Low 19-41 [facility] Comment on above: Performed By: #### L 500.2500, L100.0100 ####[facility] [address] [place], [address] MCH (RBC) [Entitic mass] 30.3 pg Normal 27.0-32.0 [facility] Comment on above: Performed By: #### L 500.2500, L100.0100 ####[facility] [address] [place], [address] MCHC (RBC) [Mass/Vol] 32.1 g/dL Normal 32-36 [facility] Comment on above: Performed By: #### L 500.2500, L100.0100 ####[facility] [address] [place], [address] MCV (RBC) [Entitic vol] 94.3 fL Normal 81-99 [facility] Comment on above: Performed By: #### L 500.2500, L100.0100 ####[facility] [address] [place], [address] Monocytes/100 WBC (Bld) 8.0 % Normal 0-10 [facility] Comment on above: Performed By: #### L 500.2500, L100.0100 ####[facility] [address] [place], [address] Neutrophils/100 WBC (Bld) 75.6 % High 47-70 [facility] Comment on above: Performed By: #### L 500.2500, L100.0100 ####[facility] [address] [place], [address] Nucleated RBC (Bld) [#/Vol] 0 10*3/uL Normal 0-5 [facility] Comment on above: Performed By: #### L 500.2500, L100.0100 ####[facility] [address] [place], [address] Platelet mean volume (Bld) [Entitic vol] 9.0 fL Normal 6.2-12.0 [facility] Comment on above: Performed By: #### L 500.2500, L100.0100 ####[facility] [address] [place], [address] Platelets (Bld) [#/Vol] 200 10*3/uL Normal 150-450 [facility] Comment on above: Performed By: #### L 500.2500, L100.0100 ####[facility] [address] [place], [address] RBC (Bld) [#/Vol] 2.97 10*6/uL Low 4.2-5.4 [facility] Comment on above: Performed By: #### L 500.2500, L100.0100 ####[facility] [address] [place], [address] RDW SD 64.1 fl High 35.1-43.9 [facility] Comment on above: Performed By: #### L 500.2500, L100.0100 ####[facility] [address] [place], [address] WBC (Bld) [#/Vol] 7.7 10*3/uL Normal 4.4-11.0 [facility] Comment on above: Performed By: #### L 500.2500, L100.0100 ####[facility] [address] [place], [address] Calcium [Mass/Vol]Ordered By : Clotilde Tamayo on 01-30-2024 Serum or plasma calcium measurement (mass/volume) 8.4 mg/dL Low 8.5-10.1 [facility] Carbon dioxide measurementOr dered By: Clotilde Tamayo on 01-30-2024 Carbon dioxide measurement 27.0 mmol/L 21.0-32.0 [facility] Chloride measurementOrdered By: Clotilde Tamayo on 01-30-2024 Chloride measurement 103 mmol/L 98-107 [facility] Creatinine [Mass/Vol]Ordered By: Clotilde Tamayo on 01-30-2024 Serum or plasma creatinine measurement (mass/volume) 1.38 mg/dL High 0.55-1.02 [facility] Discharge Instructionon 01-10 Discharge Instruction Normal [facility] Eosinophil percentageOrdered By: Clotilde Tamayo on 01-30-2024 Eosinophil percentage 3.1 % 0-5 [facility] Erythrocyte distribution wid th (RBC) [Ratio]Ordered By: Clotilde Tamayo on 01-30-2024 Erythrocyte distribution width ratio 18.6 % High 11.6-14.6 [facility] Erythrocyte distribution wid th standard deviationOrdered By: Clotilde Tamayo on 01-30-2024 Erythrocyte distribution width standard deviation 64.1 fl High 35.1-43.9 [facility] Estimated glomerular filtrat ion rate (GFR) AmericanOrdered By: Clotilde Tamayo on 01-30-2024 Estimated glomerular filtration rate (GFR) 47 mL/min Low >60 [facility] Estimation of creatinine joni aranceOrdered By: Clotilde Tamayo on 01-30-2024 Estimation of creatinine clearance 21.02 ml/min [facility] Glomerular filtration rate ( GFR) estimationOrdered By: Clotilde Tamayo on 01-30-2024 Glomerular filtration rate (GFR) estimation 39 mL/min Low >60 [facility] Glucose measurementOrdered B y: Clotilde Tamayo on 01-30-2024 Glucose measurement 87 mg/dL 74-106 [facility] Hematocrit Auto (Bld) [Volum e fraction]Ordered By: Clotilde Tamayo on 01-30-2024 Automated blood hematocrit (percentage) 28.0 % Low 37-47 [facility] Hemoglobin measurementOrdere d By: Clotilde Tamayo on 01-30-2024 Hemoglobin measurement 9.0 g/dL Low 12.0-15.0 [facility] Immature granulocytes/100 WB C Auto (Bld)Ordered By: Clotilde Tamayo on 01-30-2024 Automated immature granulocyte percentage 0.500 % 0.0-0.9 [facility] Lymphocytes Auto (Unsp spec) [#/Vol]Ordered By: Clotilde Tamayo on 01-30-2024 Absolute lymphocyte count 0.94 X10^3/uL 0.83-4.51 [facility] Lymphocytes/100 WBC Auto (Un sp spec)Ordered By: Clotilde Tamayo on 01-30-2024 Automated lymphocyte count as percentage of total leukocytes 12.3 % Low 19-41 [facility] MCV (RBC) [Entitic vol]Order ed By: Clotilde Tamayo on 01-30-2024 MCV (mean corpuscular volume) determination 94.3 fL 81-99 [facility] Mean corpuscular hemoglobin (MCH) determinationOrdered By: Clotilde Tamayo on 01-30-2024 Mean corpuscular hemoglobin (MCH) determination 30.3 pg 27.0-32.0 [facility] Mean corpuscular hemoglobin concentration (MCHC) determinationOrdered By: Clotilde Tamayo on 01-30-2024 Mean corpuscular hemoglobin concentration (MCHC) determination 32.1 g/dL 32-36 [facility] Mean platelet volume determi nationOrdered By: Clotilde Tamayo on 01-30-2024 Mean platelet volume determination 9.0 fl 6.2-12.0 [facility] Monocyte percentageOrdered B y: Clotilde Tamayo on 01-30-2024 Monocyte percentage 8.0 % 0-10 [facility] Neutrophil percentageOrdered By: Clotilde Tamayo on 01-30-2024 Neutrophil percentage 75.6 % High 47-70 [facility] Nucleated red blood cell per centageOrdered By: Clotilde Tamayo on 01-30-2024 Nucleated red blood cell percentage 0 % 0-5 [facility] Platelet countOrdered By: Patsy Tamayo on 01-30-2024 Platelet count 200 K/mm3 150-450 [facility] Potassium measurementOrdered By: Clotilde Tamayo on 01-30-2024 Potassium measurement 3.0 mmol/L Low 3.5-5.1 [facility] RBC Auto (Bld) [#/Vol]Ordere d By: Clotilde Tamayo on 01-30-2024 Automated blood erythrocyte count 2.97 M/mm3 Low 4.2-5.4 [facility] Serum anion gap measurementO rdered By: Clotilde Tamayo on 01-30-2024 Serum anion gap measurement 8 5-15 [facility] Sodium levelOrdered By: Clotilde Tamayo on 01-30-2024 Sodium level 138 mmol/L 136-145 [facility] Urea nitrogen [Mass/Vol]Orde red By: Clotilde Tamayo on 01-30-2024 Serum or plasma urea nitrogen measurement (mass/volume) 30 mg/dL High 7-18 [facility] White blood cell (WBC) count Ordered By: Clotilde Tamayo on 01-30-2024 White blood cell (WBC) count 7.7 K/mm3 4.4-11.0 [facility] Acanthocyte detectionOrdered By: Clotilde Tamayo on 01-29-2024 Acanthocyte detection RARE [facility] Basic Metabolic Profile (BMP )on 01-29-2024 BUN/CRE 18.8 RATIO Normal 10-20 [facility] Comment on above: Performed By: #### L 100.0100, L500.2500 ####[facility] [address] [place], [address] CA,Total 8.7 mg/dL Normal 8.5-10.1 [facility] Comment on above: Performed By: #### L 100.0100, L500.2500 ####[facility] [address] [place], [address] Chloride [Moles/Vol] 107 mmol/L Normal 98-107 [facility] Comment on above: Performed By: #### L 100.0100, L500.2500 ####[facility] [address] [place], [address] CO2 [Moles/Vol] 28.0 mmol/L Normal 21.0-32.0 [facility] Comment on above: Performed By: #### L 100.0100, L500.2500 ####[facility] [address] [place], [address] Creatinine [Mass/Vol] 1.44 mg/dL High 0.55-1.02 [facility] Comment on above: Result Comment: The validity of the calculated GFR GFRAA in patients over70 years has not been determined. Clinical correlation isessential. Performed By: #### L 100.0100, L500.2500 ####[facility] [address] [place], [address] ECRCL 20.14 ml/min Normal [facility] Comment on above: Performed By: #### L 100.0100, L500.2500 ####[facility] [address] [place], [address] EST GFR - AA 44 mL/min Low >60 [facility] Comment on above: Result Comment: Afri can Lebanese GFR Calc Performed By: #### L 100.0100, L500.2500 ####[facility] [address] [place], [address] GAP 6 Normal 5-15 [facility] Comment on above: Performed By: #### L 100.0100, L500.2500 ####[facility] [address] [place], [address] GFR/1.73 sq M.predicted among non-blacks MDRD (S/P/Bld) [Vol rate/Area] 37 mL/min/{1.73_m2} Low >60 [facility] Comment on above: Result Comment: Non- GFR Calc Performed By: #### L 100.0100, L500.2500 ####[facility] [address] [place], [address] Glucose [Mass/Vol] 85 mg/dL Normal 74-106 [facility] Comment on above: Performed By: #### L 100.0100, L500.2500 ####[facility] [address] [place], [address] Potassium [Moles/Vol] 3.5 mmol/L Normal 3.5-5.1 [facility] Comment on above: Performed By: #### L 100.0100, L500.2500 ####[facility] [address] [place], [address] Sodium [Moles/Vol] 141 mmol/L Normal 136-145 [facility] Comment on above: Performed By: #### L 100.0100, L500.2500 ####[facility] [address] [place], [address] Urea nitrogen [Mass/Vol] 27 mg/dL High 7-18 [facility] Comment on above: Performed By: #### L 100.0100, L500.2500 ####[facility] [address] [place], [address] Blood polychromasia detectio n by light microscopyOrdered By: Clotilde Tamayo on 01-29-2024 Blood polychromasia detection by light microscopy 1+ [facility] CBC W/Diff, Automatedon 12 ACANTHOCYTE RARE Normal [facility] Comment on above: Performed By: #### L 100.0100, L500.2500 ####[facility] [address] [place], [address] MACROCYTOSIS 1+ Normal [facility] Comment on above: Performed By: #### L 100.0100, L500.2500 ####[facility] [address] [place], [address] TEAR DROP RARE Normal [facility] Comment on above: Performed By: #### L 100.0100, L500.2500 ####[facility] [address] [place], [address] Anisocytosis Ql (Bld) 2+ Normal [facility] Comment on above: Performed By: #### L 100.0100, L500.2500 ####[facility] [address] [place], [address] PLT EST ADEQUATE Normal ADEQ [facility] Comment on above: Performed By: #### L 100.0100, L500.2500 ####[facility] [address] [place], [address] POLYCHROMASIA 1+ Normal [facility] Comment on above: Performed By: #### L 100.0100, L500.2500 ####[facility] [address] [place], [address] SMEAR COMMENT SCANNED Normal [facility] Comment on above: Performed By: #### L 100.0100, L500.2500 ####[facility] [address] [place], [address] Manual differential comment Adán (Bld) [Interp]Ordered By: Clotilde Tamayo on 01-29-2024 Blood manual differential comment interpretation (narrative result) SCANNED [facility] No Panel InformationOrdered By: Clotilde Tamayo on 01-29-2024 2+ [facility] Platelets LM Ql (Bld)Ordered By: Clotilde Tamayo on 01-29-2024 Platelet estimate ADEQUATE ADEQ [facility] 12 Lead EKGon 01-28-2024 12 Lead EKG Normal [facility] Basic Metabolic Profile (BMP )on 01-28-2024 BUN/CRE 17.2 RATIO Normal - [facility] Comment on above: Order Comment: Comme nts: May add to ED labs Performed By: #### L 503.6550, L500.2500, L500.4100, L503.6030, L501.9520, L100.0100 ####[facility] [address] [place], [address] CA,Total 8.3 mg/dL Low 8.5-10.1 [facility] Comment on above: Order Comment: Comme nts: May add to ED labs Performed By: #### L 503.6550, L500.2500, L500.4100, L503.6030, L501.9520, L100.0100 ####[facility] [address] [place], [address] Chloride [Moles/Vol] 112 mmol/L High 98-107 [facility] Comment on above: Order Comment: Comme nts: May add to ED labs Performed By: #### L 503.6550, L500.2500, L500.4100, L503.6030, L501.9520, L100.0100 ####[facility] [address] [place], [address] CO2 [Moles/Vol] 25.0 mmol/L Normal 21.0-32.0 [facility] Comment on above: Order Comment: Comme nts: May add to ED labs Performed By: #### L 503.6550, L500.2500, L500.4100, L503.6030, L501.9520, L100.0100 ####[facility] [address] [place], [address] Creatinine [Mass/Vol] 1.28 mg/dL High 0.55-1.02 [facility] Comment on above: Order Comment: Comme nts: May add to ED labs Result Comment: The validity of the calculated GFR GFRAA in patients over70 years has not been determined. Clinical correlation isessential. Performed By: #### L 503.6550, L500.2500, L500.4100, L503.6030, L501.9520, L100.0100 ####[facility] [address] [place], [address] ECRCL 22.66 ml/min Normal [facility] Comment on above: Order Comment: Comme nts: May add to ED labs Performed By: #### L 503.6550, L500.2500, L500.4100, L503.6030, L501.9520, L100.0100 ####[facility] [address] [place], [address] EST GFR - AA 51 mL/min Low >60 [facility] Comment on above: Order Comment: Comme nts: May add to ED labs Result Comment: Afri can Lebanese GFR Calc Performed By: #### L 503.6550, L500.2500, L500.4100, L503.6030, L501.9520, L100.0100 ####[facility] [address] [place], [address] GAP 5 Normal 5-15 [facility] Comment on above: Order Comment: Comme nts: May add to ED labs Performed By: #### L 503.6550, L500.2500, L500.4100, L503.6030, L501.9520, L100.0100 ####[facility] [address] [place], [address] GFR/1.73 sq M.predicted among non-blacks MDRD (S/P/Bld) [Vol rate/Area] 42 mL/min/{1.73_m2} Low >60 [facility] Comment on above: Order Comment: Comme nts: May add to ED labs Result Comment: Non- GFR Calc Performed By: #### L 503.6550, L500.2500, L500.4100, L503.6030, L501.9520, L100.0100 ####[facility] [address] [place], [address] Glucose [Mass/Vol] 86 mg/dL Normal 74-106 [facility] Comment on above: Order Comment: Comme nts: May add to ED labs Performed By: #### L 503.6550, L500.2500, L500.4100, L503.6030, L501.9520, L100.0100 ####[facility] [address] [place], [address] Potassium [Moles/Vol] 3.9 mmol/L Normal 3.5-5.1 [facility] Comment on above: Order Comment: Comme nts: May add to ED labs Performed By: #### L 503.6550, L500.2500, L500.4100, L503.6030, L501.9520, L100.0100 ####[facility] [address] [place], [address] Sodium [Moles/Vol] 142 mmol/L Normal 136-145 [facility] Comment on above: Order Comment: Comme nts: May add to ED labs Performed By: #### L 503.6550, L500.2500, L500.4100, L503.6030, L501.9520, L100.0100 ####[facility] [address] [place], [address] Urea nitrogen [Mass/Vol] 22 mg/dL High 7-18 [facility] Comment on above: Order Comment: Comme nts: May add to ED labs Performed By: #### L 503.6550, L500.2500, L500.4100, L503.6030, L501.9520, L100.0100 ####[facility] [address] [place], [address] CBC W/Diff, Automatedon 12-1 CRENATED RBC 1+ Normal [facility] Comment on above: Performed By: #### L 503.6550, L500.2500, L500.4100, L503.6030, L501.9520, L100.0100 ####[facility] [address] [place], [address] MACROCYTOSIS 1+ Normal [facility] Comment on above: Performed By: #### L 503.6550, L500.2500, L500.4100, L503.6030, L501.9520, L100.0100 ####[facility] [address] [place], [address] OVALOCYTE 1+ Normal [facility] Comment on above: Performed By: #### L 503.6550, L500.2500, L500.4100, L503.6030, L501.9520, L100.0100 ####[facility] [address] [place], [address] SCHISTOCYTES 1+ Normal [facility] Comment on above: Performed By: #### L 503.6550, L500.2500, L500.4100, L503.6030, L501.9520, L100.0100 ####[facility] [address] [place], [address] TEAR DROP 1+ Normal [facility] Comment on above: Performed By: #### L 503.6550, L500.2500, L500.4100, L503.6030, L501.9520, L100.0100 ####[facility] [address] [place], [address] Anisocytosis Ql (Bld) 2+ Normal [facility] Comment on above: Performed By: #### L 503.6550, L500.2500, L500.4100, L503.6030, L501.9520, L100.0100 ####[facility] [address] [place], [address] PLT EST ADEQUATE Normal ADEQ [facility] Comment on above: Performed By: #### L 503.6550, L500.2500, L500.4100, L503.6030, L501.9520, L100.0100 ####[facility] [address] [place], [address] POLYCHROMASIA 1+ Normal [facility] Comment on above: Performed By: #### L 503.6550, L500.2500, L500.4100, L503.6030, L501.9520, L100.0100 ####[facility] [address] [place], [address] SMEAR COMMENT SCANNED Normal [facility] Comment on above: Performed By: #### L 503.6550, L500.2500, L500.4100, L503.6030, L501.9520, L100.0100 ####[facility] [address] [place], [place], [address] Cholesterol [Mass/Vol]Ordere d By: Perla Kingston on 01-28-2024 Serum or plasma cholesterol measurement (mass/volume) 81 mg/dL <200 [facility] Crenated erythrocyte detecti on by light microscopyOrdered By: Perla Kingston on 01-28-2024 Crenated erythrocyte detection by light microscopy 1+ [facility] Ferritinon 01-28-2024 Ferritin [Mass/Vol] 217 ng/mL Normal 8-252 [facility] Comment on above: Order Comment: Comme nts: May add to ED labs Performed By: #### L 503.6550, L500.2500, L500.4100, L503.6030, L501.9520, L100.0100 ####[facility] [address] [place], [address] Ferritin measurementOrdered By: Perla Kingston on 01-28-2024 Ferritin measurement 217 ng/mL 8-252 [facility] High density lipoprotein (HD L) measurementOrdered By: Perla Kingston on 01-28-2024 High density lipoprotein (HDL) measurement 40 mg/dL >40 [facility] Iron (Unsp spec) [Mass/Mass] Ordered By: Perla Kingston on 01-28-2024 Iron measurement (mass/mass) 34 ug/dL Low 50-170 [facility] Iron saturation [Mass fracti on]Ordered By: Perla Kingston on 01-28-2024 Serum or plasma iron saturation measurement (mass fraction) 15.9 % 15.0-55.0 [facility] Iron+Iron Binding Capacityon 01-28-2024 Iron [Mass/Vol] 34 ug/dL Low 50-170 [facility] Comment on above: Order Comment: Comme nts: May add to ED labs Performed By: #### L 503.6550, L500.2500, L500.4100, L503.6030, L501.9520, L100.0100 ####[facility] [address] [place], [place], [address] IRON SATURATION 15.9 Normal 15.0-55.0 [facility] Comment on above: Order Comment: Yobany nts: May add to ED labs Performed By: #### L 503.6550, L500.2500, L500.4100, L503.6030, L501.9520, L100.0100 ####[facility] [address] [place], [address] TIBC 214 ug/dL Low 250-450 [facility] Comment on above: Order Comment: Yobany nts: May add to ED labs Performed By: #### L 503.6550, L500.2500, L500.4100, L503.6030, L501.9520, L100.0100 ####[facility] [address] [place], [address] Lipid Profileon 01-28-2024 Cholesterol [Mass/Vol] 81 mg/dL Normal 200 [facility] Comment on above: Order Comment: Yobany nts: May add to ED labs Result Comment: <200 mg/dL Desirable 200-240 mg/dL Borderline >240 mg/dL High Risk Performed By: #### L 503.6550, L500.2500, L500.4100, L503.6030, L501.9520, L100.0100 ####[facility] [address] [place], [address] Cholesterol in HDL [Mass/Vol] 40 mg/dL Normal [facility] Comment on above: Order Comment: Yobany nts: May add to ED labs Result Comment: The drugs N-Acetylcysteine and Metamizole may falselydepress this assay. Reference Range HDL <40 mg/dL Low HDL Cholesterol HDL >or= 60 mg/dL High HDL Cholesterol Performed By: #### L 503.6550, L500.2500, L500.4100, L503.6030, L501.9520, L100.0100 ####[facility] [address] [place], [address] Cholesterol in LDL [Mass/Vol] 30 mg/dL Normal 0-130 [facility] Comment on above: Order Comment: Commtracy nts: May add to ED labs Performed By: #### L 503.6550, L500.2500, L500.4100, L503.6030, L501.9520, L100.0100 ####[facility] [address], [address] Cholesterol in VLDL [Mass/Vol] 11 mg/dL Normal 5-40 [facility] Comment on above: Order Comment: Commtracy nts: May add to ED labs Performed By: #### L 503.6550, L500.2500, L500.4100, L503.6030, L501.9520, L100.0100 ####[facility] [address] [place], [address] Triglyceride [Mass/Vol] 55 mg/dL Normal [facility] Comment on above: Order Comment: Commtracy nts: May add to ED labs Result Comment: The drugs N-Acetylcysteine and Metamizole may falselydepress this assay.Serum Triglycerides Reference Interval Normal <150 mg/dL Borderline high 150 - 199 mg/dL High 200 - 499 mg/dL Very High > or = 500 mg/dL Performed By: #### L 503.6550, L500.2500, L500.4100, L503.6030, L501.9520, L100.0100 ####[facility] [address] [place], [address] Low density lipoprotein (LDL ) cholesterol measurementOrdered By: Perla Kingston on 01-28-2024 Low density lipoprotein (LDL) cholesterol measurement 30 mg/dL 0-130 [facility] Modified Barium Swallow Stud yon 01-28-2024 Modified Barium Swallow Study Normal [facility] TIBCOrdered By: Perla Kingston on 01-28-2024 TIBC 214 ug/dL Low 250-450 [facility] TSH QnOrdered By: Perla ward on 01-28-2024 Serum or plasma thyroid stimulating hormone (TSH) measurement (units/volume) 2.800 uIU/mL 0.358-3.740 [facility] Thyroid Stim Hormone (TSH)on 01-28-2024 TSH 2.800 uIU/mL Normal 0.358-3.740 [facility] Comment on above: Order Comment: Comme nts: May add to ED labs Performed By: #### L 503.6550, L500.2500, L500.4100, L503.6030, L501.9520, L100.0100 ####[facility] [address] [place], [address] Triglycerides measurementOrd ered By: Perla Kingston on 01-28-2024 Triglycerides measurement 55 mg/dL <199 [facility] Very low density lipoprotein (VLDL) cholesterol measurementOrdered By: Perla Kingston on 01-28-2024 Very low density lipoprotein (VLDL) cholesterol measurement 11 mg/dL 5-40 [facility] 12 Lead EKGon 01-27-2024 12 Lead EKG Normal [facility] BNP (brain natriuretic pepti de measurement)Ordered By: Eyad Cuellar on 01-27-2024 BNP (brain natriuretic peptide measurement) 2014.0 pg/mL High 0-100 [facility] BNP,B-Type NATRIURETIC PEPTI Scarlet 01-27-2024 Natriuretic peptide B (Bld) [Mass/Vol] 2144.6 pg/mL High 0-100 [facility] Comment on above: Performed By: #### L 503.6620, L100.0100, L500.4050 ####[facility] [address] [place], [address] Natriuretic peptide B (Bld) [Mass/Vol] 2014.0 pg/mL High 0-100 [facility] Comment on above: Performed By: #### L 503.6620 ####[facility] [address] [place], [address] COVID 19 AG RAPID (AMNA Dewey)on 01-27-2024 SARS-CoV-2 (COVID-19) RNA MEÑO+probe Ql (Unsp spec) Normal [facility] Comment on above: Performed By: #### M 100.505 ####[facility] [address] [place], [address] Emergency Department Summary on 01-27-2024 Emergency Department Summary Normal [facility] H AND P Exam - Hospitaliston 01-27-2024 H&P Exam - Hospitalist Normal [facility] L501.4020on 01-27-2024 TROPONIN-I HS 27 pg/mL Normal 3.0-54.0 [facility] Comment on above: Order Comment: 'TROP ' Serial specimen #1, #2 or #3: 1 Result Comment: Plea se Note: New Test Units and Gender Specific Reference Ranges. For more information see Policy Stat Procedure [place] High Sensitivity Troponin (TNIH) and attachments. Performed By: #### L 501.4020 ####[facility] [address] [place], [place], [address] RESPIRATORY PANEL MOLECULARo n 01-27-2024 RP PANEL Normal [facility] Comment on above: Performed By: #### M 100.638 ####[facility] [address] [place], [place], [address] Troponin IOrdered By: Eyad hope on 01-27-2024 Troponin I 27 pg/mL 3.0-54.0 [facility] 12 Lead EKG performed by [facility] on 01-26-2024 12 Lead EKG performed by [facility] Normal [facility] ALP [Catalytic activity/Vol] Ordered By: Katharine López on 01-26-2024 Serum or plasma alkaline phosphatase measurement 95 U/L 45-117 [facility] ALT [Catalytic activity/Vol] Ordered By: Katharine López on 01-26-2024 Serum or plasma alanine aminotransferase (ALT) measurement 80 U/L High 13-56 [facility] Absolute neutrophil countOrd ered By: Katharine López on 01-26-2024 Absolute neutrophil count 7.0 X10^3/uL 2.0-7.7 [facility] Albumin [Mass/Vol]Ordered By : Katharine López on 01-26-2024 Serum or plasma albumin measurement (mass/volume) 3.0 g/dL Low 3.2-5.0 [facility] Albumin to globulin ratioOrd ered By: Katharine López on 01-26-2024 Albumin to globulin ratio 0.9 RATIO 0.9-2.4 [facility] BNP (brain natriuretic pepti de measurement)Ordered By: Katharine López on 01-26-2024 BNP (brain natriuretic peptide measurement) 2144.6 pg/mL High 0-100 [facility] Basophil percentageOrdered B y: Katharine López on 01-26-2024 Basophil percentage 0.5 % 0-1 [facility] Bilirubin, totalOrdered By: Katharine López on 01-26-2024 Bilirubin, total 1.10 mg/dL High 0.20-1.00 [facility] Blood urea nitrogen (BUN)/cr eatinine ratioOrdered By: Katharine López on 01-26-2024 Blood urea nitrogen (BUN)/creatinine ratio 18.3 RATIO 10-20 [facility] CBC W/Diff, Automatedon 01-09 Anisocytosis Ql (Bld) 2+ Normal [facility] Comment on above: Performed By: #### L 503.6620, L100.0100, L500.4050 ####[facility] [address] [place], [place], [address] SMEAR COMMENT SCANNED Normal [facility] Comment on above: Performed By: #### L 503.6620, L100.0100, L500.4050 ####[facility] [address] [place], [place], [address] Calcium [Mass/Vol]Ordered By : Katharine López on 01-26-2024 Serum or plasma calcium measurement (mass/volume) 8.8 mg/dL 8.5-10.1 [facility] Carbon dioxide measurementOr dered By: Katharine López on 01-26-2024 Carbon dioxide measurement 22.0 mmol/L 21.0-32.0 [facility] Cardiology Visit Reporton Cardiology Visit Report Normal [facility] Chest PA and Lateralon 01-25 Chest PA and Lateral Normal [facility] Chloride measurementOrdered By: Katharine López on 01-26-2024 Chloride measurement 115 mmol/L High 98-107 [facility] Comprehensive Metabolic Prof ilon 01-26-2024 Albumin [Mass/Vol] 3.0 g/dL Low 3.2-5.0 [facility] Comment on above: Performed By: #### L 503.6620, L100.0100, L500.4050 ####[facility] [address] [place], [address] Albumin/Globulin [Mass ratio] 0.9 {ratio} Normal 0.9-2.4 [facility] Comment on above: Performed By: #### L 503.6620, L100.0100, L500.4050 ####[facility] [facility] [address] [place], [address] ALK P 95 U/L Normal 45-117 [facility] Comment on above: Performed By: #### L 503.6620, L100.0100, L500.4050 ####[facility] [address] [place], [address] ALT [Catalytic activity/Vol] 80 U/L High 13-56 [facility] Comment on above: Performed By: #### L 503.6620, L100.0100, L500.4050 ####[facility] [address] [place], [address] AST [Catalytic activity/Vol] 45 U/L High 15-37 [facility] Comment on above: Performed By: #### L 503.6620, L100.0100, L500.4050 ####[facility] [address] [place], [address] Bilirubin [Mass/Vol] 1.10 mg/dL High 0.20-1.00 [facility] Comment on above: Result Comment: For patients on eltrombopag therapy, use of Dimension Frederick TBIL is not recommended. Performed By: #### L 503.6620, L100.0100, L500.4050 ####[facility] [address] [place], [address] BUN/CRE 18.3 RATIO Normal 10-20 [facility] Comment on above: Performed By: #### L 503.6620, L100.0100, L500.4050 ####[facility] [address] [place], [address] CA,Total 8.8 mg/dL Normal 8.5-10.1 [facility] Comment on above: Performed By: #### L 503.6620, L100.0100, L500.4050 ####[facility] [address] [place], [address] Chloride [Moles/Vol] 115 mmol/L High 98-107 [facility] Comment on above: Performed By: #### L 503.6620, L100.0100, L500.4050 ####[facility] [address] [place], [address] CO2 [Moles/Vol] 22.0 mmol/L Normal 21.0-32.0 [facility] Comment on above: Performed By: #### L 503.6620, L100.0100, L500.4050 ####[facility] [address] [place], [address] Creatinine [Mass/Vol] 1.31 mg/dL High 0.55-1.02 [facility] Comment on above: Result Comment: The validity of the calculated GFR GFRAA in patients over70 years has not been determined. Clinical correlation isessential. Performed By: #### L 503.6620, L100.0100, L500.4050 ####[facility] [address] [place], [address] EST GFR - AA 49 mL/min Low >60 [facility] Comment on above: Result Comment: Afri can Lebanese GFR Calc Performed By: #### L 503.6620, L100.0100, L500.4050 ####[facility] [address] [place], [address] GAP 4 Low 5-15 [facility] Comment on above: Performed By: #### L 503.6620, L100.0100, L500.4050 ####[facility] [address] [place], [address] GFR/1.73 sq M.predicted among non-blacks MDRD (S/P/Bld) [Vol rate/Area] 41 mL/min/{1.73_m2} Low >60 [facility] Comment on above: Result Comment: Non- GFR Calc Performed By: #### L 503.6620, L100.0100, L500.4050 ####[facility] [address] [place], [address] Globulin (S) [Mass/Vol] 3.5 g/dL Normal 2.2-4.2 [facility] Comment on above: Performed By: #### L 503.6620, L100.0100, L500.4050 ####[facility] [address] [place], [address] Glucose [Mass/Vol] 117 mg/dL High 74-106 [facility] Comment on above: Result Comment: Fast ing Glucose result from 100 to 125 mg/dLsuggests IMPAIRED HOMEOSTASIS per A.D.A. criteria. Performed By: #### L 503.6620, L100.0100, L500.4050 ####[facility] [address] [place], [address] Potassium [Moles/Vol] 4.4 mmol/L Normal 3.5-5.1 [facility] Comment on above: Performed By: #### L 503.6620, L100.0100, L500.4050 ####[facility] [address] [place], [address] Sodium [Moles/Vol] 142 mmol/L Normal 136-145 [facility] Comment on above: Performed By: #### L 503.6620, L100.0100, L500.4050 ####[facility] [address] [place], [address] T PROT 6.5 g/dL Normal 6.4-8.2 [facility] Comment on above: Performed By: #### L 503.6620, L100.0100, L500.4050 ####[facility] [address] [place], [address] Urea nitrogen [Mass/Vol] 24 mg/dL High 7-18 [facility] Comment on above: Performed By: #### L 503.6620, L100.0100, L500.4050 ####[facility] [address] [place], [address] Creatinine [Mass/Vol]Ordered By: Katharine López on 01-26-2024 Serum or plasma creatinine measurement (mass/volume) 1.31 mg/dL High 0.55-1.02 [facility] Eosinophil percentageOrdered By: Katharine López on 01-26-2024 Eosinophil percentage 1.7 % 0-5 [facility] Erythrocyte distribution wid th (RBC) [Ratio]Ordered By: Katharine López on 01-26-2024 Erythrocyte distribution width ratio 19.2 % High 11.6-14.6 [facility] Erythrocyte distribution wid th standard deviationOrdered By: Katharine López on 01-26-2024 Erythrocyte distribution width standard deviation 69.8 fl High 35.1-43.9 [facility] Estimated glomerular filtrat ion rate (GFR) AmericanOrdered By: Katharine López on 01-26-2024 Estimated glomerular filtration rate (GFR) 49 mL/min Low >60 [facility] Glomerular filtration rate ( GFR) estimationOrdered By: Katharine López on 01-26-2024 Glomerular filtration rate (GFR) estimation 41 mL/min Low >60 [facility] Glucose measurementOrdered B y: Katharine López on 01-26-2024 Glucose measurement 117 mg/dL High 74-106 [facility] Hematocrit Auto (Bld) [Volum e fraction]Ordered By: Katharine López on 01-26-2024 Automated blood hematocrit (percentage) 30.4 % Low 37-47 [facility] Hemoglobin measurementOrdere d By: Katharine López on 01-26-2024 Hemoglobin measurement 9.0 g/dL Low 12.0-15.0 [facility] Immature granulocytes/100 WB C Auto (Bld)Ordered By: Katharine López on 01-26-2024 Automated immature granulocyte percentage 0.800 % 0.0-0.9 [facility] Lymphocytes Auto (Unsp spec) [#/Vol]Ordered By: Katharine López on 01-26-2024 Absolute lymphocyte count 0.69 X10^3/uL Low 0.83-4.51 [facility] Lymphocytes/100 WBC Auto (Un sp spec)Ordered By: Katharine López on 01-26-2024 Automated lymphocyte count as percentage of total leukocytes 8.2 % Low 19-41 [facility] MCV (RBC) [Entitic vol]Order ed By: Katharine López on 01-26-2024 MCV (mean corpuscular volume) determination 101.3 fL High 81-99 [facility] Manual differential comment Adán (Bld) [Interp]Ordered By: Katharine López on 01-26-2024 Blood manual differential comment interpretation (narrative result) SCANNED [facility] Mean corpuscular hemoglobin (MCH) determinationOrdered By: Katharine López on 01-26-2024 Mean corpuscular hemoglobin (MCH) determination 30.0 pg 27.0-32.0 [facility] Mean corpuscular hemoglobin concentration (MCHC) determinationOrdered By: Katharine López on 01-26-2024 Mean corpuscular hemoglobin concentration (MCHC) determination 29.6 g/dL Low 32-36 [facility] Mean platelet volume determi nationOrdered By: Katharine López on 01-26-2024 Mean platelet volume determination 9.0 fl 6.2-12.0 [facility] Monocyte percentageOrdered B y: Katharine López on 01-26-2024 Monocyte percentage 5.8 % 0-10 [facility] Neutrophil percentageOrdered By: Katharine López on 01-26-2024 Neutrophil percentage 83.0 % High 47-70 [facility] No Panel InformationOrdered By: Katharine López on 01-26-2024 2+ [facility] 45 U/L High 15-37 [facility] Nucleated red blood cell per centageOrdered By: Katharine López on 01-26-2024 Nucleated red blood cell percentage 0 % 0-5 [facility] Platelet countOrdered By: Lisbeth López on 01-26-2024 Platelet count 285 K/mm3 150-450 [facility] Potassium measurementOrdered By: Katharine López on 01-26-2024 Potassium measurement 4.4 mmol/L 3.5-5.1 [facility] RBC Auto (Bld) [#/Vol]Ordere d By: Katharine López on 01-26-2024 Automated blood erythrocyte count 3.00 M/mm3 Low 4.2-5.4 [facility] Serum anion gap measurementO rdered By: Katharine López on 01-26-2024 Serum anion gap measurement 4 Low 5-15 [facility] Serum globulin measurementOr dered By: Katharine López on 01-26-2024 Serum globulin measurement 3.5 g/dL 2.2-4.2 [facility] Sodium levelOrdered By: Frederick López on 01-26-2024 Sodium level 142 mmol/L 136-145 [facility] Total proteinOrdered By: Hong López on 01-26-2024 Total protein 6.5 g/dL 6.4-8.2 [facility] Urea nitrogen [Mass/Vol]Orde red By: Katharine López on 01-26-2024 Serum or plasma urea nitrogen measurement (mass/volume) 24 mg/dL High 7-18 [facility] White blood cell (WBC) count Ordered By: Katharine López on 01-26-2024 White blood cell (WBC) count 8.4 K/mm3 4.4-11.0 [facility] Absolute neutrophil countOrd ered By: Betty Rodriguez on 12-29-2023 Absolute neutrophil count 4.8 X10^3/uL 2.0-7.7 [facility] BNP (brain natriuretic pepti de measurement)Ordered By: Betty Rodriguez on 12-29-2023 BNP (brain natriuretic peptide measurement) 409.1 pg/mL High 0-100 [facility] BNP,B-Type NATRIURETIC PEPTI Scarlet 12-29-2023 Natriuretic peptide B (Bld) [Mass/Vol] 409.1 pg/mL High 0-100 [facility] Comment on above: Performed By: #### L 500.2500, L100.0100, L503.6620 ####[facility] [address] [place], [address] Basic Metabolic Profile (BMP )on 12-29-2023 BUN/CRE 16.3 RATIO Normal 10-20 [facility] Comment on above: Performed By: #### L 500.2500, L100.0100, L503.6620 ####[facility] [address] [place], [address] [place],Total 9.1 mg/dL Normal 8.5-10.1 [facility] Comment on above: Performed By: #### L 500.2500, L100.0100, L503.6620 ####[facility] [address] [place], [address] Chloride [Moles/Vol] 109 mmol/L High 98-107 [facility] Comment on above: Performed By: #### L 500.2500, L100.0100, L503.6620 ####[facility] [address] [place], [address] CO2 [Moles/Vol] 24.0 mmol/L Normal 21.0-32.0 [facility] Comment on above: Performed By: #### L 500.2500, L100.0100, L503.6620 ####[facility] [address] [place], [address] Creatinine [Mass/Vol] 1.23 mg/dL High 0.55-1.02 [facility] Comment on above: Result Comment: The validity of the calculated GFR GFRAA in patients over70 years has not been determined. Clinical correlation isessential. Performed By: #### L 500.2500, L100.0100, L503.6620 ####[facility] [address] [place], [address] EST GFR - AA 53 mL/min Low >60 [facility] Comment on above: Result Comment: Afri can Lebanese GFR Calc Performed By: #### L 500.2500, L100.0100, L503.6620 ####[facility] [address] [place], [address] GAP 7 Normal 5-15 [facility] Comment on above: Performed By: #### L 500.2500, L100.0100, L503.6620 ####[facility] [address] [place], [address] GFR/1.73 sq M.predicted among non-blacks MDRD (S/P/Bld) [Vol rate/Area] 44 mL/min/{1.73_m2} Low >60 [facility] Comment on above: Result Comment: Non- GFR Calc Performed By: #### L 500.2500, L100.0100, L503.6620 ####[facility] [address] [place], [address] Glucose [Mass/Vol] 85 mg/dL Normal 74-106 [facility] Comment on above: Performed By: #### L 500.2500, L100.0100, L503.6620 ####[facility] [address] [place], [address] Potassium [Moles/Vol] 4.6 mmol/L Normal 3.5-5.1 [facility] Comment on above: Performed By: #### L 500.2500, L100.0100, L503.6620 ####[facility] [address] [place], [address] Sodium [Moles/Vol] 140 mmol/L Normal 136-145 [facility] Comment on above: Performed By: #### L 500.2500, L100.0100, L503.6620 ####[facility] [address] [place], [address] Urea nitrogen [Mass/Vol] 20 mg/dL High - [facility] Comment on above: Performed By: #### L 500.2500, L100.0100, L503.6620 ####[facility] [address] [place], [address] Basophil percentageOrdered B y: Betty Rodriguez on 12-29-2023 Basophil percentage 0.6 % 0-1 [facility] Blood urea nitrogen (BUN)/cr eatinine ratioOrdered By: Betty Rodriguez on 12-29-2023 Blood urea nitrogen (BUN)/creatinine ratio 16.3 RATIO - [facility] CBC W/Diff, Automatedon 12-10 Absolute Lymph 0.88 X10 3/uL Normal 0.83-4.51 [facility] Comment on above: Performed By: #### L 500.2500, L100.0100, L503.6620 ####[facility] [address] [place], [address] Absolute Neut 4.8 X10 3/uL Normal 2.0-7.7 [facility] Comment on above: Performed By: #### L 500.2500, L100.0100, L503.6620 ####[facility] [address] [place], [address] Basophils/100 WBC (Bld) 0.6 % Normal 0-1 [facility] Comment on above: Performed By: #### L 500.2500, L100.0100, L503.6620 ####[facility] [address] [place], [address] Eosinophils/100 WBC (Bld) 2.5 % Normal 0-5 [facility] Comment on above: Performed By: #### L 500.2500, L100.0100, L503.6620 ####[facility] [address] [place], [address] Erythrocyte distribution width (RBC) [Ratio] 15.6 % High 11.6-14.6 [facility] Comment on above: Performed By: #### L 500.2500, L100.0100, L503.6620 ####[facility] [address] [place], [address] Hematocrit (Bld) [Volume fraction] 30.2 % Low 37-47 [facility] Comment on above: Performed By: #### L 500.2500, L100.0100, L503.6620 ####[facility] [address] [place], [address] Hemoglobin (Bld) [Mass/Vol] 9.3 g/dL Low 12.0-15.0 [facility] Comment on above: Performed By: #### L 500.2500, L100.0100, L503.6620 ####[facility] [address] [place], [address] IG% 0.600 Normal 0.0-0.9 [facility] Comment on above: Result Comment: IG% - Immature Granulocytes (promyelocytes, myelocytes andmetamyelocytes) > 1% indicates that a LEFT SHIFT is Present. Performed By: #### L 500.2500, L100.0100, L503.6620 ####[facility] [address] [place], [address] Lymphocytes/100 WBC (Bld) 13.9 % Low 19-41 [facility] Comment on above: Performed By: #### L 500.2500, L100.0100, L503.6620 ####[facility] [address] [place], [address] MCH (RBC) [Entitic mass] 29.5 pg Normal 27.0-32.0 [facility] Comment on above: Performed By: #### L 500.2500, L100.0100, L503.6620 ####[facility] [address] [place], [address] MCHC (RBC) [Mass/Vol] 30.8 g/dL Low 32-36 [facility] Comment on above: Performed By: #### L 500.2500, L100.0100, L503.6620 ####[facility] [address] [place], [address] MCV (RBC) [Entitic vol] 95.9 fL Normal 81-99 [facility] Comment on above: Performed By: #### L 500.2500, L100.0100, L503.6620 ####[facility] [address] [place], [address] Monocytes/100 WBC (Bld) 6.8 % Normal 0-10 [facility] Comment on above: Performed By: #### L 500.2500, L100.0100, L503.6620 ####[facility] [address] [place], [address] Neutrophils/100 WBC (Bld) 75.6 % High 47-70 [facility] Comment on above: Performed By: #### L 500.2500, L100.0100, L503.6620 ####[facility] [address] [place], [address] Nucleated RBC (Bld) [#/Vol] 0 10*3/uL Normal 0-5 [facility] Comment on above: Performed By: #### L 500.2500, L100.0100, L503.6620 ####[facility] [address] [place], [address] Platelet mean volume (Bld) [Entitic vol] 8.5 fL Normal 6.2-12.0 [facility] Comment on above: Performed By: #### L 500.2500, L100.0100, L503.6620 ####[facility] [address] [place], [address] Platelets (Bld) [#/Vol] 345 10*3/uL Normal 150-450 [facility] Comment on above: Performed By: #### L 500.2500, L100.0100, L503.6620 ####[facility] [address] [place], [address] RBC (Bld) [#/Vol] 3.15 10*6/uL Low 4.2-5.4 [facility] Comment on above: Performed By: #### L 500.2500, L100.0100, L503.6620 ####[facility] [address] [place], [address] RDW SD 54.4 fl High 35.1-43.9 [facility] Comment on above: Performed By: #### L 500.2500, L100.0100, L503.6620 ####[facility] [address] [place], [address] WBC (Bld) [#/Vol] 6.4 10*3/uL Normal 4.4-11.0 [facility] Comment on above: Performed By: #### L 500.2500, L100.0100, L503.6620 ####[facility] [address] [place], [address] Calcium [Mass/Vol]Ordered By : Betty Rodriguez on 12-29-2023 Serum or plasma calcium measurement (mass/volume) 9.1 mg/dL 8.5-10.1 [facility] Carbon dioxide measurementOr dered By: Betty Rodriguez on 12-29-2023 Carbon dioxide measurement 24.0 mmol/L 21.0-32.0 [facility] Chloride measurementOrdered By: Betty Rodriguez on 12-29-2023 Chloride measurement 109 mmol/L High 98-107 [facility] Creatinine [Mass/Vol]Ordered By: Betty Rodriguez on 12-29-2023 Serum or plasma creatinine measurement (mass/volume) 1.23 mg/dL High 0.55-1.02 [facility] Eosinophil percentageOrdered By: Betty Rodriguez on 12-29-2023 Eosinophil percentage 2.5 % 0-5 [facility] Erythrocyte distribution wid th (RBC) [Entitic vol]Ordered By: Betty Rodriguez on 12-29-2023 Erythrocyte distribution width standard deviation 54.4 fl High 35.1-43.9 [facility] Erythrocyte distribution wid th (RBC) [Ratio]Ordered By: Betty Rodriguez on 12-29-2023 Erythrocyte distribution width ratio 15.6 % High 11.6-14.6 [facility] Estimated glomerular filtrat ion rate (GFR) AmericanOrdered By: Betty Rodriguez on 12-29-2023 Estimated glomerular filtration rate (GFR) 53 mL/min Low >60 [facility] Glomerular filtration rate ( GFR) estimationOrdered By: Betty Rodriguez on 12-29-2023 Glomerular filtration rate (GFR) estimation 44 mL/min Low >60 [facility] Glucose measurementOrdered B y: Betty Rodriguez on 12-29-2023 Glucose measurement 85 mg/dL 74-106 [facility] Hematocrit Auto (Bld) [Volum e fraction]Ordered By: Betty Rodriguez on 12-29-2023 Automated blood hematocrit (percentage) 30.2 % Low 37-47 [facility] Hemoglobin measurementOrdere d By: Betty Rodriguez on 12-29-2023 Hemoglobin measurement 9.3 g/dL Low 12.0-15.0 [facility] Immature granulocytes/100 WB C Auto (Bld)Ordered By: Betty Rodriguez on 12-29-2023 Automated immature granulocyte percentage 0.600 % 0.0-0.9 [facility] Lymphocytes Auto (Unsp spec) [#/Vol]Ordered By: Betty Rodriguez on 12-29-2023 Absolute lymphocyte count 0.88 X10^3/uL 0.83-4.51 [facility] Lymphocytes/100 WBC Auto (Un sp spec)Ordered By: Betty Rodriguez on 12-29-2023 Automated lymphocyte count as percentage of total leukocytes 13.9 % Low 19-41 [facility] MCV (RBC) [Entitic vol]Order ed By: Betty Rodriguez on 12-29-2023 MCV (mean corpuscular volume) determination 95.9 fL 81-99 [facility] Mean corpuscular hemoglobin (MCH) determinationOrdered By: Betty Rodriguez on 12-29-2023 Mean corpuscular hemoglobin (MCH) determination 29.5 pg 27.0-32.0 [facility] Mean corpuscular hemoglobin concentration (MCHC) determinationOrdered By: Betty Rodriguez on 12-29-2023 Mean corpuscular hemoglobin concentration (MCHC) determination 30.8 g/dL Low 32-36 [facility] Mean platelet volume determi nationOrdered By: Betty Rodriguez on 12-29-2023 Mean platelet volume determination 8.5 fl 6.2-12.0 [facility] Monocyte percentageOrdered B y: Betty Rodriguez on 12-29-2023 Monocyte percentage 6.8 % 0-10 [facility] Neutrophil percentageOrdered By: Betty Rodriguez on 12-29-2023 Neutrophil percentage 75.6 % High 47-70 [facility] Nucleated red blood cell per centageOrdered By: Betty Rodriguez on 12-29-2023 Nucleated red blood cell percentage 0 % 0-5 [facility] Platelet countOrdered By: Stas Rodriguez on 12-29-2023 Platelet count 345 K/mm3 150-450 [facility] Potassium measurementOrdered By: Betty Rodriguez on 12-29-2023 Potassium measurement 4.6 mmol/L 3.5-5.1 [facility] RBC Auto (Bld) [#/Vol]Ordere d By: Betty Rodriguez on 12-29-2023 Automated blood erythrocyte count 3.15 M/mm3 Low 4.2-5.4 [facility] Serum anion gap measurementO rdered By: Betty Rodriguez on 12-29-2023 Serum anion gap measurement 7 5-15 [facility] Sodium levelOrdered By: Rosalee Rodriguez on 12-29-2023 Sodium level 140 mmol/L 136-145 [facility] Urea nitrogen [Mass/Vol]Orde red By: Betty Rodriguez on 12-29-2023 Serum or plasma urea nitrogen measurement (mass/volume) 20 mg/dL High 7-18 [facility] White blood cell (WBC) count Ordered By: Betty Rodriguez on 12-29-2023 White blood cell (WBC) count 6.4 K/mm3 4.4-11.0 [facility] Echo Completeon 12-18-2023 Echo Complete Normal [facility] BNP,B-Type NATRIURETIC PEPTI Scarlet 12-10-2023 Natriuretic peptide B (Bld) [Mass/Vol] 389.3 pg/mL High 0-100 [facility] Comment on above: Performed By: #### L 500.4050, L503.6620, L100.0100, L501.9520 ####[facility] [address] [place], [address] CBC W/Diff, Automatedon 10- Absolute Lymph 0.56 X10 3/uL Low 0.83-4.51 [facility] Comment on above: Performed By: #### L 500.4050, L503.6620, L100.0100, L501.9520 ####[facility] [address] [place], [address] Absolute Neut 5.7 X10 3/uL Normal 2.0-7.7 [facility] Comment on above: Performed By: #### L 500.4050, L503.6620, L100.0100, L501.9520 ####[facility] [address] [place], [address] Basophils/100 WBC (Bld) 0.7 % Normal 0-1 [facility] Comment on above: Performed By: #### L 500.4050, L503.6620, L100.0100, L501.9520 ####[facility] [address] [place], [address] Eosinophils/100 WBC (Bld) 3.4 % Normal 0-5 [facility] Comment on above: Performed By: #### L 500.4050, L503.6620, L100.0100, L501.9520 ####[facility] [address] [place], [address] Erythrocyte distribution width (RBC) [Ratio] 14.3 % Normal 11.6-14.6 [facility] Comment on above: Performed By: #### L 500.4050, L503.6620, L100.0100, L501.9520 ####[facility] [address] [place], [address] Hematocrit (Bld) [Volume fraction] 31.7 % Low 37-47 [facility] Comment on above: Performed By: #### L 500.4050, L503.6620, L100.0100, L501.9520 ####[facility] [address] [place], [address] Hemoglobin (Bld) [Mass/Vol] 10.1 g/dL Low 12.0-15.0 [facility] Comment on above: Performed By: #### L 500.4050, L503.6620, L100.0100, L501.9520 ####[facility] [address] [place], [address] IG% 0.700 Normal 0.0-0.9 [facility] Comment on above: Result Comment: IG% - Immature Granulocytes (promyelocytes, myelocytes andmetamyelocytes) > 1% indicates that a LEFT SHIFT is Present. Performed By: #### L 500.4050, L503.6620, L100.0100, L501.9520 ####[facility] [address] [place], [address] Lymphocytes/100 WBC (Bld) 7.9 % Low 19-41 [facility] Comment on above: Performed By: #### L 500.4050, L503.6620, L100.0100, L501.9520 ####[facility] [address] [place], [address] MCH (RBC) [Entitic mass] 29.8 pg Normal 27.0-32.0 [facility] Comment on above: Performed By: #### L 500.4050, L503.6620, L100.0100, L501.9520 ####[facility] [address] [place], [address] MCHC (RBC) [Mass/Vol] 31.9 g/dL Low 32-36 [facility] Comment on above: Performed By: #### L 500.4050, L503.6620, L100.0100, L501.9520 ####[facility] [address] [place], [address] MCV (RBC) [Entitic vol] 93.5 fL Normal 81-99 [facility] Comment on above: Performed By: #### L 500.4050, L503.6620, L100.0100, L501.9520 ####[facility] [address] [place], [address] Monocytes/100 WBC (Bld) 7.2 % Normal 0-10 [facility] Comment on above: Performed By: #### L 500.4050, L503.6620, L100.0100, L501.9520 ####[facility] [address] [place], [address] Neutrophils/100 WBC (Bld) 80.1 % High 47-70 [facility] Comment on above: Performed By: #### L 500.4050, L503.6620, L100.0100, L501.9520 ####[facility] [address] [place], [address] Nucleated RBC (Bld) [#/Vol] 0 10*3/uL Normal 0-5 [facility] Comment on above: Performed By: #### L 500.4050, L503.6620, L100.0100, L501.9520 ####[facility] [address] [place], [address] Platelet mean volume (Bld) [Entitic vol] 8.6 fL Normal 6.2-12.0 [facility] Comment on above: Performed By: #### L 500.4050, L503.6620, L100.0100, L501.9520 ####[facility] [address] [place], [address] Platelets (Bld) [#/Vol] 327 10*3/uL Normal 150-450 [facility] Comment on above: Performed By: #### L 500.4050, L503.6620, L100.0100, L501.9520 ####[facility] [address] [place], [address] RBC (Bld) [#/Vol] 3.39 10*6/uL Low 4.2-5.4 [facility] Comment on above: Performed By: #### L 500.4050, L503.6620, L100.0100, L501.9520 ####[facility] [address] [place], [address] RDW SD 48.0 fl High 35.1-43.9 [facility] Comment on above: Performed By: #### L 500.4050, L503.6620, L100.0100, L501.9520 ####[facility] [address] [place], [address] WBC (Bld) [#/Vol] 7.1 10*3/uL Normal 4.4-11.0 [facility] Comment on above: Performed By: #### L 500.4050, L503.6620, L100.0100, L501.9520 ####[facility] [address] [place], [address] Comprehensive Metabolic Prof ilon 12-10-2023 Albumin [Mass/Vol] 2.9 g/dL Low 3.2-5.0 [facility] Comment on above: Performed By: #### L 500.4050, L503.6620, L100.0100, L501.9520 ####[facility] [address] [place], [address] Albumin/Globulin [Mass ratio] 0.7 {ratio} Low 0.9-2.4 [facility] Comment on above: Performed By: #### L 500.4050, L503.6620, L100.0100, L501.9520 ####[facility] [address] [place], [address] ALK P 103 U/L Normal 45-117 [facility] Comment on above: Performed By: #### L 500.4050, L503.6620, L100.0100, L501.9520 ####[facility] [address] [place], [address] ALT [Catalytic activity/Vol] 87 U/L High 13-56 [facility] Comment on above: Performed By: #### L 500.4050, L503.6620, L100.0100, L501.9520 ####[facility] [address] [place], [address] AST [Catalytic activity/Vol] 70 U/L High 15-37 [facility] Comment on above: Performed By: #### L 500.4050, L503.6620, L100.0100, L501.9520 ####[facility] [address] [place], [address] Bilirubin [Mass/Vol] 1.10 mg/dL High 0.20-1.00 [facility] Comment on above: Result Comment: For patients on eltrombopag therapy, use of Dimension Frederick TBIL is not recommended. Performed By: #### L 500.4050, L503.6620, L100.0100, L501.9520 ####[facility] [address] [place], [address] BUN/CRE 19.2 RATIO Normal 10-20 [facility] Comment on above: Performed By: #### L 500.4050, L503.6620, L100.0100, L501.9520 ####[facility] [address] [place], [address] CA,Total 8.9 mg/dL Normal 8.5-10.1 [facility] Comment on above: Performed By: #### L 500.4050, L503.6620, L100.0100, L501.9520 ####[facility] [address] [place], [address] Chloride [Moles/Vol] 110 mmol/L High 98-107 [facility] Comment on above: Performed By: #### L 500.4050, L503.6620, L100.0100, L501.9520 ####[facility] [address] [place], [address] CO2 [Moles/Vol] 23.0 mmol/L Normal 21.0-32.0 [facility] Comment on above: Performed By: #### L 500.4050, L503.6620, L100.0100, L501.9520 ####[facility] [address] [place], [address] Creatinine [Mass/Vol] 1.20 mg/dL High 0.55-1.02 [facility] Comment on above: Result Comment: The validity of the calculated GFR GFRAA in patients over70 years has not been determined. Clinical correlation isessential. Performed By: #### L 500.4050, L503.6620, L100.0100, L501.9520 ####[facility] [address] [place], [address] EST GFR - AA 55 mL/min Low >60 [facility] Comment on above: Result Comment: Afri can Lebanese GFR Calc Performed By: #### L 500.4050, L503.6620, L100.0100, L501.9520 ####[facility] [address] [place], [address] GAP 7 Normal 5-15 [facility] Comment on above: Performed By: #### L 500.4050, L503.6620, L100.0100, L501.9520 ####[facility] [address] [place], [address] GFR/1.73 sq M.predicted among non-blacks MDRD (S/P/Bld) [Vol rate/Area] 45 mL/min/{1.73_m2} Low >60 [facility] Comment on above: Result Comment: Non- GFR Calc Performed By: #### L 500.4050, L503.6620, L100.0100, L501.9520 ####[facility] [address] [place], [address] Globulin (S) [Mass/Vol] 4.0 g/dL Normal 2.2-4.2 [facility] Comment on above: Performed By: #### L 500.4050, L503.6620, L100.0100, L501.9520 ####[facility] [address] [place], [address] Glucose [Mass/Vol] 105 mg/dL Normal 74-106 [facility] Comment on above: Result Comment: Fast ing Glucose result from 100 to 125 mg/dLsuggests IMPAIRED HOMEOSTASIS per A.D.A. criteria. Performed By: #### L 500.4050, L503.6620, L100.0100, L501.9520 ####[facility] [address] [place], [address] Potassium [Moles/Vol] 3.8 mmol/L Normal 3.5-5.1 [facility] Comment on above: Performed By: #### L 500.4050, L503.6620, L100.0100, L501.9520 ####[facility] [address] [place], [address] Sodium [Moles/Vol] 140 mmol/L Normal 136-145 [facility] Comment on above: Performed By: #### L 500.4050, L503.6620, L100.0100, L501.9520 ####[facility] [address] [place], [address] T PROT 6.9 g/dL Normal 6.4-8.2 [facility] Comment on above: Performed By: #### L 500.4050, L503.6620, L100.0100, L501.9520 ####[facility] [address] [place], [address] Urea nitrogen [Mass/Vol] 23 mg/dL High 7-18 [facility] Comment on above: Performed By: #### L 500.4050, L503.6620, L100.0100, L501.9520 ####[facility] [address] [place], [address] Thyroid Stim Hormone (TSH)on 12-10-2023 TSH 3.280 uIU/mL Normal 0.358-3.740 [facility] Comment on above: Performed By: #### L 500.4050, L503.6620, L100.0100, L501.9520 ####[facility] [address] [place], [address] T4 Free Directon 11-10-2023 T4 FREE DIRECT 1.48 ng/dL High 0.76-1.46 [facility] Comment on above: Performed By: #### L 501.9520, L506.0400 ####[facility] [address] [place], [address] Thyroid Stim Hormone (TSH)on 11-10-2023 TSH 3.620 uIU/mL Normal 0.358-3.740 [facility] Comment on above: Performed By: #### L 501.9520, L506.0400 ####[facility] [address] [place], [address] 12 Lead EKG performed by BMS on 10-21-2023 12 Lead EKG performed by BMS Normal [facility] Cardiology Visit Reporton Cardiology Visit Report Normal [facility] Dexa Bone Density Studyon Dexa Bone Density Study Normal [facility] SCRN MAMM (CAD)W/ANGELO BILATo n 10-14-2023 SCRN MAMM (CAD)W/ANGELO BILAT Normal [facility] CBC W/Diff, Automatedon 09-10 Absolute Lymph 0.93 X10 3/uL Normal 0.83-4.51 [facility] Comment on above: Performed By: #### L 501.6710, L501.0900, L3890.6100, L400.2010, L500.4050, L100.0100, L101.9900, L3890.6300, L3890.6200 ####[facility] [address] [place], [address] Absolute Neut 4.7 X10 3/uL Normal 2.0-7.7 [facility] Comment on above: Performed By: #### L 501.6710, L501.0900, L3890.6100, L400.2010, L500.4050, L100.0100, L101.9900, L3890.6300, L3890.6200 ####[facility] [address] [place], [address] Basophils/100 WBC (Bld) 0.6 % Normal 0-1 [facility] Comment on above: Performed By: #### L 501.6710, L501.0900, L3890.6100, L400.2010, L500.4050, L100.0100, L101.9900, L3890.6300, L3890.6200 ####[facility] [address] [place], [address] Eosinophils/100 WBC (Bld) 1.7 % Normal 0-5 [facility] Comment on above: Performed By: #### L 501.6710, L501.0900, L3890.6100, L400.2010, L500.4050, L100.0100, L101.9900, L3890.6300, L3890.6200 ####[facility] [address] [place], [address] Erythrocyte distribution width (RBC) [Ratio] 14.1 % Normal 11.6-14.6 [facility] Comment on above: Performed By: #### L 501.6710, L501.0900, L3890.6100, L400.2010, L500.4050, L100.0100, L101.9900, L3890.6300, L3890.6200 ####[facility] [address] [place], [address] Hematocrit (Bld) [Volume fraction] 36.4 % Low 37-47 [facility] Comment on above: Performed By: #### L 501.6710, L501.0900, L3890.6100, L400.2010, L500.4050, L100.0100, L101.9900, L3890.6300, L3890.6200 ####[facility] [address] [place], [address] Hemoglobin (Bld) [Mass/Vol] 11.6 g/dL Low 12.0-15.0 [facility] Comment on above: Performed By: #### L 501.6710, L501.0900, L3890.6100, L400.2011, L500.4050, L100.0100, L101.9900, L3890.6300, L3890.6200 ####[facility] [address] [place], [address] IG% 0.500 Normal 0.0-0.9 [facility] Comment on above: Result Comment: IG% - Immature Granulocytes (promyelocytes, myelocytes andmetamyelocytes) > 1% indicates that a LEFT SHIFT is Present. Performed By: #### L 501.6710, L501.0900, L3890.6100, L400.2010, L500.4050, L100.0100, L101.9900, L3890.6300, L3890.6200 ####[facility] [address] [place], [address] Lymphocytes/100 WBC (Bld) 14.7 % Low 19-41 [facility] Comment on above: Performed By: #### L 501.6710, L501.0900, L3890.6100, L400.2010, L500.4050, L100.0100, L101.9900, L3890.6300, L3890.6200 ####[facility] [address] [place], [address] MCH (RBC) [Entitic mass] 30.6 pg Normal 27.0-32.0 [facility] Comment on above: Performed By: #### L 501.6710, L501.0900, L3890.6100, L400.2010, L500.4050, L100.0100, L101.9900, L3890.6300, L3890.6200 ####[facility] [address] [place], [address] MCHC (RBC) [Mass/Vol] 31.9 g/dL Low 32-36 [facility] Comment on above: Performed By: #### L 501.6710, L501.0900, L3890.6100, L400.2011, L500.4050, L100.0100, L101.9900, L3890.6300, L3890.6200 ####[facility] [address], [address] MCV (RBC) [Entitic vol] 96.0 fL Normal 81-99 [facility] Comment on above: Performed By: #### L 501.6710, L501.0900, L3890.6100, L400.2010, L500.4050, L100.0100, L101.9900, L3890.6300, L3890.6200 ####[facility] [address] [facility] [place], [address] Monocytes/100 WBC (Bld) 7.4 % Normal 0-10 [facility] Comment on above: Performed By: #### L 501.6710, L501.0900, L3890.6100, L400.2010, L500.4050, L100.0100, L101.9900, L3890.6300, L3890.6200 ####[facility] [address] [facility] [place], [address] Neutrophils/100 WBC (Bld) 75.1 % High 47-70 [facility] Comment on above: Performed By: #### L 501.6710, L501.0900, L3890.6100, L400.2010, L500.4050, L100.0100, L101.9900, L3890.6300, L3890.6200 ####[facility] [address] [facility] [place], [address] Nucleated RBC (Bld) [#/Vol] 0 10*3/uL Normal 0-5 [facility] Comment on above: Performed By: #### L 501.6710, L501.0900, L3890.6100, L400.2010, L500.4050, L100.0100, L101.9900, L3890.6300, L3890.6200 ####[facility] [address], [address] Platelet mean volume (Bld) [Entitic vol] 9.2 fL Normal 6.2-12.0 [facility] Comment on above: Performed By: #### L 501.6710, L501.0900, L3890.6100, L400.2010, L500.4050, L100.0100, L101.9900, L3890.6300, L3890.6200 ####[facility] [address] [place], [address] Platelets (Bld) [#/Vol] 266 10*3/uL Normal 150-450 [facility] Comment on above: Performed By: #### L 501.6710, L501.0900, L3890.6100, L4.2010, L500.4050, L100.0100, L101.9900, L3890.6300, L3890.6200 ####[facility] [address] [facility] [place], [place], [address] RBC (Bld) [#/Vol] 3.79 10*6/uL Low 4.2-5.4 [facility] Comment on above: Performed By: #### L 501.6710, L501.0900, L3890.6100, L400.2010, L500.4050, L100.0100, L101.9900, L3890.6300, L3890.6200 ####[facility] [address] [facility] [place], [address] RDW SD 49.5 fl High 35.1-43.9 [facility] Comment on above: Performed By: #### L 501.6710, L501.0900, L3890.6100, L400.2010, L500.4050, L100.0100, L101.9900, L3890.6300, L3890.6200 ####[facility] [address] [place], [place], [address] WBC (Bld) [#/Vol] 6.3 10*3/uL Normal 4.4-11.0 [facility] Comment on above: Performed By: #### L 501.6710, L501.0900, L3890.6100, L400.2010, L500.4050, L100.0100, L101.9900, L3890.6300, L3890.6200 ####[facility] [address] [place], [address] CRPon 10-06-2023 C-REACTIVE PROT < 2.90 Normal 0.0-3.0 [facility] Comment on above: Result Comment: C-Re active Protein (CRP) provides useful information for thediagnosis, therapy and monitoring of inflammatory processesand associated diseases. For the evaluation of Relative Riskfor Cardiovascular Disease, a High Sensitivity CRP (HSCRP)should be ordered. Performed By: #### L 501.6710, L501.0900, L3890.6100, L400.2010, L500.4050, L100.0100, L101.9900, L3890.6300, L3890.6200 ####[facility] [address] [place], [place], [address] Comprehensive Metabolic Prof ilon 10-06-2023 Albumin [Mass/Vol] 3.5 g/dL Normal 3.2-5.0 [facility] Comment on above: Performed By: #### L 501.6710, L501.0900, L3890.6100, L400.2010, L500.4050, L100.0100, L101.9900, L3890.6300, L3890.6200 ####[facility] [address] [place], [place], [address] Albumin/Globulin [Mass ratio] 1.0 {ratio} Normal 0.9-2.4 [facility] Comment on above: Performed By: #### L 501.6710, L501.0900, L3890.6100, L400.2011, L500.4050, L100.0100, L101.9900, L3890.6300, L3890.6200 ####[facility] [address] [place], [address] ALK P 106 U/L Normal 45-117 [facility] Comment on above: Performed By: #### L 501.6710, L501.0900, L3890.6100, L400.2010, L500.4050, L100.0100, L101.9900, L3890.6300, L3890.6200 ####[facility] [address] [place], [address] ALT [Catalytic activity/Vol] 51 U/L Normal 13-56 [facility] Comment on above: Performed By: #### L 501.6710, L501.0900, L3890.6100, L400.2010, L500.4050, L100.0100, L101.9900, L3890.6300, L3890.6200 ####[facility] [address] [place], [address] AST [Catalytic activity/Vol] 40 U/L High 15-37 [facility] Comment on above: Performed By: #### L 501.6710, L501.0900, L3890.6100, L400.2010, L500.4050, L100.0100, L101.9900, L3890.6300, L3890.6200 ####[facility] [address] [place], [address] Bilirubin [Mass/Vol] 0.60 mg/dL Normal 0.20-1.00 [facility] Comment on above: Result Comment: For patients on eltrombopag therapy, use of Dimension [place] TBIL is not recommended. Performed By: #### L 501.6710, L501.0900, L3890.6100, L400.2011, L500.4050, L100.0100, L101.9900, L3890.6300, L3890.6200 ####[facility] [address] [place], [address] BUN/CRE 22.5 RATIO High 10-20 [facility] Comment on above: Performed By: #### L 501.6710, L501.0900, L3890.6100, L400.2010, L500.4050, L100.0100, L101.9900, L3890.6300, L3890.6200 ####[facility] [address] [place], [address] CA,Total 8.9 mg/dL Normal 8.5-10.1 [facility] Comment on above: Performed By: #### L 501.6710, L501.0900, L3890.6100, L400.2010, L500.4050, L100.0100, L101.9900, L3890.6300, L3890.6200 ####[facility] [address] [place], [address] Chloride [Moles/Vol] 108 mmol/L High 98-107 [facility] Comment on above: Performed By: #### L 501.6710, L501.0900, L3890.6100, L400.2010, L500.4050, L100.0100, L101.9900, L3890.6300, L3890.6200 ####[facility] [address] [place], [address] CO2 [Moles/Vol] 24.0 mmol/L Normal 21.0-32.0 [facility] Comment on above: Performed By: #### L 501.6710, L501.0900, L3890.6100, L400.2010, L500.4050, L100.0100, L101.9900, L3890.6300, L3890.6200 ####[facility] [address] [place], [place], [address] Creatinine [Mass/Vol] 1.11 mg/dL High 0.55-1.02 [facility] Comment on above: Result Comment: The validity of the calculated GFR GFRAA in patients over70 years has not been determined. Clinical correlation isessential. Performed By: #### L 501.6710, L501.0900, L3890.6100, L400.2010, L500.4050, L100.0100, L101.9900, L3890.6300, L3890.6200 ####[facility] [address] [place], [address](247) EST GFR - AA 60 mL/min Normal >60 [facility] Comment on above: Result Comment: Afri can Lebanese GFR Calc Performed By: #### L 501.6710, L501.0900, L3890.6100, L400.2010, L500.4050, L100.0100, L101.9900, L3890.6300, L3890.6200 ####[facility] [address] [place], [place], [phone] Normal 5-15 [facility] Comment on above: Performed By: #### L 501.6710, L501.0900, L3890.6100, L400.2010, L500.4050, L100.0100, L101.9900, L3890.6300, L3890.6200 ####[facility] [address] [place], [address](650) GFR/1.73 sq M.predicted among non-blacks MDRD (S/P/Bld) [Vol rate/Area] 50 mL/min/{1.73_m2} Low >60 [facility] Comment on above: Result Comment: Non- GFR Calc Performed By: #### L 501.6710, L501.0900, L3890.6100, L400.2010, L500.4050, L100.0100, L101.9900, L3890.6300, L3890.6200 ####[facility] [address] [place], [address] Globulin (S) [Mass/Vol] 3.6 g/dL Normal 2.2-4.2 [facility] Comment on above: Performed By: #### L 501.6710, L501.0900, L3890.6100, L400.2010, L500.4050, L100.0100, L101.9900, L3890.6300, L3890.6200 ####[facility] [address] [place], [address] Glucose [Mass/Vol] 98 mg/dL Normal 74-106 [facility] Comment on above: Performed By: #### L 501.6710, L501.0900, L3890.6100, L400.2010, L500.4050, L100.0100, L101.9900, L3890.6300, L3890.6200 ####[facility] [address] [place], [address] Potassium [Moles/Vol] 3.8 mmol/L Normal 3.5-5.1 [facility] Comment on above: Performed By: #### L 501.6710, L501.0900, L3890.6100, L400.2010, L500.4050, L100.0100, L101.9900, L3890.6300, L3890.6200 ####[facility] [address] [place], [address] Sodium [Moles/Vol] 141 mmol/L Normal 136-145 [facility] Comment on above: Performed By: #### L 501.6710, L501.0900, L3890.6100, L400.2011, L500.4050, L100.0100, L101.9900, L3890.6300, L3890.6200 ####[facility] [address] [place], [address] T PROT 7.1 g/dL Normal 6.4-8.2 [facility] Comment on above: Performed By: #### L 501.6710, L501.0900, L3890.6100, L400.2010, L500.4050, L100.0100, L101.9900, L3890.6300, L3890.6200 ####[facility] [address] [place], [address] Urea nitrogen [Mass/Vol] 25 mg/dL High 7-18 [facility] Comment on above: Performed By: #### L 501.6710, L501.0900, L3890.6100, L400.2010, L500.4050, L100.0100, L101.9900, L3890.6300, L3890.6200 ####[facility] [address] [place], [address] EXAGENon 10-06-2023 EXAGEN MAILED SPECIMEN Normal [facility] Comment on above: Performed By: #### L 801.1549 ####[facility] [id number] [place], [address] Erythrocyte Sed Rateon 10-05 SED RATE 5 mm/hr Normal 0-30 [facility] Comment on above: Performed By: #### L 501.6710, L501.0900, L3890.6100, L400.2010, L500.4050, L100.0100, L101.9900, L3890.6300, L3890.6200 ####[facility] [address] [place] [place], [address] Hepatitis B Surface Antibody on 10-06-2023 HEP B Surf Ab Non-Reactive Normal [facility] Comment on above: Result Comment: Non Reactive: Inconsistent with immunity less than <10 mIU/mL Reactive: Consistent with immunity greater than or equal to 10 mIU/mL Performed By: #### L 501.6710, L501.0900, L3890.6100, L400.2010, L500.4050, L100.0100, L101.9900, L3890.6300, L3890.6200 ####[facility] [address] [place], [place], [id number] Hepatitis B Surface Antigeno n 10-06-2023 HEP B Surf Ag Non-Reactive Normal Nonreactive [facility] Comment on above: Performed By: #### L 501.6710, L501.0900, L3890.6100, L400.2010, L500.4050, L100.0100, L101.9900, L3890.6300, L3890.6200 ####[facility] [address] [place], [place], [id number] Hepatitis C Antibodyon 10-05 Hepatitis C AB Non-Reactive Normal Nonreactive [facility] Comment on above: Result Comment: Non Reactive: < 0.8 Equivocal: >/= 0.8 to < 1.0 Reactive: >/= 1.0The CDC requires that a reactive/equivocal HCV antibodyresult be sent out for confirmation. HCV Quant by PCRtesting. Performed By: #### L 501.6710, L501.0900, L3890.6100, L400.2010, L500.4050, L100.0100, L101.9900, L3890.6300, L3890.6200 ####[facility] [address] [place], [place], [phone] Protein+Creatinine Ratio,Uri neon 10-06-2023 PROT:CRE RATIO 299 mg/g CRE High 0-200 [facility] Comment on above: Performed By: #### L 501.6710, L501.0900, L3890.6100, L400.2011, L500.4050, L100.0100, L101.9900, L3890.6300, L3890.6200 ####[facility] [address] [place], [address] Protein (U) [Mass/Vol] 31.1 mg/dL High <11.9 [facility] Comment on above: Performed By: #### L 501.6710, L501.0900, L3890.6100, L400.2010, L500.4050, L100.0100, L101.9900, L3890.6300, L3890.6200 ####[facility] [address] [place], [place], [phone](604) UR CREAT 104.00 mg/dL Normal NO RANGE EST. [facility] Comment on above: Performed By: #### L 501.6710, L501.0900, L3890.6100, L400.2010, L500.4050, L100.0100, L101.9900, L3890.6300, L3890.6200 ####[facility] [address] [place], [address] Urinalysis, Routine (Dipstic k)on 10-06-2023 BILIRUBIN URINE Negative Normal Negative [facility] Comment on above: Order Comment: CLEAN CATCH Performed By: #### L 501.6710, L501.0900, L3890.6100, L400.2010, L500.4050, L100.0100, L101.9900, L3890.6300, L3890.6200 ####[facility] [address] [place], [address] Clarity (U) Clear Normal Clear [facility] Comment on above: Order Comment: CLEAN CATCH Performed By: #### L 501.6710, L501.0900, L3890.6100, L400.2010, L500.4050, L100.0100, L101.9900, L3890.6300, L3890.6200 ####[facility] [address] [place], [place], [phone] Color (U) Yellow Normal Yellow [facility] Comment on above: Order Comment: CLEAN CATCH Performed By: #### L 501.6710, L501.0900, L3890.6100, L400.2010, L500.4050, L100.0100, L101.9900, L3890.6300, L3890.6200 ####[facility] [address] [place], [place], [id number] GLUCOSE, UR Normal Normal Normal [facility] Comment on above: Order Comment: CLEAN CATCH Performed By: #### L 501.6710, L501.0900, L3890.6100, L400.2010, L500.4050, L100.0100, L101.9900, L3890.6300, L3890.6200 ####[facility] [address] [place], [place], [phone] KETONE UR Negative Normal Negative [facility] Comment on above: Order Comment: CLEAN CATCH Performed By: #### L 501.6710, L501.0900, L3890.6100, L400.2010, L500.4050, L100.0100, L101.9900, L3890.6300, L3890.6200 ####[facility] [address] [place], [address] LEUK ESTERASE Negative Normal Negative [facility] Comment on above: Order Comment: CLEAN CATCH Performed By: #### L 501.6710, L501.0900, L3890.6100, L400.2010, L500.4050, L100.0100, L101.9900, L3890.6300, L3890.6200 ####[facility] [address] [place], [address] Nitrite Ql (U) Negative Normal Negative [facility] Comment on above: Order Comment: CLEAN CATCH Performed By: #### L 501.6710, L501.0900, L3890.6100, L400.2010, L500.4050, L100.0100, L101.9900, L3890.6300, L3890.6200 ####[facility] [address] [place], [place], [phone] OCCULT BLOOD-UR Negative Normal Negative [facility] Comment on above: Order Comment: CLEAN CATCH Performed By: #### L 501.6710, L501.0900, L3890.6100, L400.2010, L500.4050, L100.0100, L101.9900, L3890.6300, L3890.6200 ####[facility] [address] [place], [address] pH UR 5.0 Normal 5.0 - 8.0 [facility] Comment on above: Order Comment: CLEAN CATCH Performed By: #### L 501.6710, L501.0900, L3890.6100, L400.2010, L500.4050, L100.0100, L101.9900, L3890.6300, L3890.6200 ####[facility] [address] [place], [place], [phone] PROT DIPSTX 15 mg/dl Abnormal Negative [facility] Comment on above: Order Comment: CLEAN CATCH Performed By: #### L 501.6710, L501.0900, L3890.6100, L400.2010, L500.4050, L100.0100, L101.9900, L3890.6300, L3890.6200 ####[facility] [address] [place], [place], [phone] SP.GR. DIPSTX 1.020 Normal 1.002-1.030 [facility] Comment on above: Order Comment: CLEAN CATCH Performed By: #### L 501.6710, L501.0900, L3890.6100, L400.2011, L500.4050, L100.0100, L101.9900, L3890.6300, L3890.6200 ####[facility] [address] [place], [place], [phone] UROBILI 1 mg/dl Abnormal Normal [facility] Comment on above: Order Comment: CLEAN CATCH Performed By: #### L 501.6710, L501.0900, L3890.6100, L400.2011, L500.4050, L100.0100, L101.9900, L3890.6300, L3890.6200 ####[facility] [address] [place], [place], [id number] Vital Signs Date Time Vital Sign Value Performing Clinician Dawit kay 07-12-2024 15:00-0400 Body temperature 97 [degF] Keke Erick THIRD LOADER-C Work Phone: [facility] 07-12-2024 15:00-0400 Diastolic blood pressure 79 mm[Hg] Keke Erick THIRD LOADER-C Work Phone: [facility] 07-12-2024 15:00-0400 Heart rate 88 /min [facility] Work Phone: [facility] 07-12-2024 15:00-0400 Respiratory rate 16 /min Keke Erick THIRD LOADER-C Work Phone: [facility] 07-12-2024 15:00-0400 SaO2% (BldA) [Mass fraction] 97 % Keke Erick THIRD LOADER-C Work Phone: [facility] 07-12-2024 15:00-0400 Systolic blood pressure 107 mm[Hg] Keke Nicholsongar THIRD LOADER-C Work Phone: [facility] 07-12-2024 12:44-0400 Body height 142.24 cm Keke Erick THIRD LOADER-C Work Phone: [facility] 07-12-2024 12:44-0400 Body mass index (BMI) [Ratio] 22.7 kg/m2 Keke Erick THIRD LOADER-C Work Phone: [facility] 07-12-2024 12:44-0400 Body weight 46 kg Keke Erick THIRD LOADER-C Work Phone: [facility] 05-16-2024 07:59-0400 Body mass index (BMI) [Ratio] 21 kg/m2 Keke Erick THIRD LOADER-C Work Phone: [facility] 05-16-2024 07:59-0400 Body weight 42.63 kg Keke Erick THIRD LOADER-C Work Phone: [facility] 05-16-2024 07:59-0400 Diastolic blood pressure 81 mm[Hg] Keke Erick THIRD LOADER-C Work Phone: [facility] 05-16-2024 07:59-0400 Heart rate 60 /min Keke Erick THIRD LOADER-C Work Phone: [facility] 05-16-2024 07:59-0400 Respiratory rate 18 /min Keke Erick THIRD LOADER-C Work Phone: [facility] 05-16-2024 07:59-0400 SaO2% (BldA) [Mass fraction] 99 % Keke Erick THIRD LOADER-C Work Phone: [facility] 05-16-2024 07:59-0400 Systolic blood pressure 133 mm[Hg] Keke Erick THIRD LOADER-C Work Phone: [facility] 04-07-2024 07:46-0500 Body temperature 98 [degF] Keke Erick THIRD LOADER-C Work Phone: [facility] 04-07-2024 07:46-0500 Diastolic blood pressure 53 mm[Hg] Keke Erick THIRD LOADER-C Work Phone: [facility] 04-07-2024 07:46-0500 Heart rate 64 /min Keke Erick THIRD LOADER-C Work Phone: [facility] 04-07-2024 07:46-0500 Respiratory rate 16 /min Keke Erick THIRD LOADER-C Work Phone: [facility] 04-07-2024 07:46-0500 SaO2% (BldA) [Mass fraction] 98 % Keke Erick THIRD LOADER-C Work Phone: [facility] 04-07-2024 07:46-0500 Systolic blood pressure 129 mm[Hg] Keke Erick THIRD LOADER-C Work Phone: [facility] 04-05-2024 16:00-0500 Body mass index (BMI) [Ratio] 21 kg/m2 Keke Erick THIRD LOADER-C Work Phone: [facility] 04-05-2024 16:00-0500 Body weight 42.5 kg Keke Erick THIRD LOADER-C Work Phone: [facility] 03-30-2024 12:52-0500 Body height 142.24 cm Keke Erick THIRD LOADER-C Work Phone: [facility] 03-09-2024 14:08-0500 Body temperature 98.6 [degF] Keke Erick THIRD LOADER-C Work Phone: [facility] 03-09-2024 14:08-0500 Diastolic blood pressure 66 mm[Hg] Keke Erick THIRD LOADER-C Work Phone: [facility] 03-09-2024 14:08-0500 Heart rate 77 /min Keke Erick THIRD LOADER-C Work Phone: [facility] 03-09-2024 14:08-0500 Respiratory rate 18 /min Keke Erick THIRD LOADER-C Work Phone: [facility] 03-09-2024 14:08-0500 SaO2% (BldA) [Mass fraction] 98 % Keke Erick THIRD LOADER-C Work Phone: [facility] 03-09-2024 14:08-0500 Systolic blood pressure 140 mm[Hg] Keke Erick THIRD LOADER-C Work Phone: [facility] 03-07-2024 12:02-0500 Body weight 44.1 kg Keke Erick THIRD LOADER-C Work Phone: [facility] 03-07-2024 11:36-0500 Body mass index (BMI) [Ratio] 21.8 kg/m2 Keke Erick THIRD LOADER-C Work Phone: [facility] 02-29-2024 16:04-0500 Body temperature 97.6 [degF] Keke Erick THIRD LOADER-C Work Phone: [facility] 02-29-2024 16:04-0500 Diastolic blood pressure 49 mm[Hg] Keke Erick THIRD LOADER-C Work Phone: [facility] 02-29-2024 16:04-0500 Heart rate 61 /min Keke Erick THIRD LOADER-C Work Phone: [facility] 02-29-2024 16:04-0500 Respiratory rate 16 /min Keke Erick THIRD LOADER-C Work Phone: [facility] 02-29-2024 16:04-0500 SaO2% (BldA) [Mass fraction] 100 % Keke Erick THIRD LOADER-C Work Phone: [facility] 02-29-2024 16:04-0500 Systolic blood pressure 138 mm[Hg] Keke Erick THIRD LOADER-C Work Phone: [facility] 02-26-2024 13:40-0500 Body weight 42.04 kg Keke Erick THIRD LOADER-C Work Phone: [facility] 02-25-2024 14:12-0500 Body mass index (BMI) [Ratio] 20.7 kg/m2 Keke Erick THIRD LOADER-C Work Phone: [facility] 02-25-2024 08:36-0500 Body mass index (BMI) [Ratio] 22.6 kg/m2 Keke Erick THIRD LOADER-C Work Phone: [facility] 02-25-2024 08:33-0500 Body temperature 98 [degF] Keke Erick THIRD LOADER-C Work Phone: [facility] 02-25-2024 08:33-0500 Diastolic blood pressure 72 mm[Hg] Keke Erick THIRD LOADER-C Work Phone: [facility] 02-25-2024 08:33-0500 Heart rate 55 /min Keke Erick THIRD LOADER-C Work Phone: [facility] 02-25-2024 08:33-0500 Respiratory rate 18 /min Keke Erick THIRD LOADER-C Work Phone: [facility] 02-25-2024 08:33-0500 SaO2% (BldA) [Mass fraction] 98 % Keke Erick THIRD LOADER-C Work Phone: [facility] 02-25-2024 08:33-0500 Systolic blood pressure 132 mm[Hg] Keke Erick THIRD LOADER-C Work Phone: [facility] 02-25-2024 05:43-0500 Body weight 45.9 kg Keke Erick THIRD LOADER-C Work Phone: [facility] 02-19-2024 15:29-0500 Body mass index (BMI) [Ratio] 21 kg/m2 Keke Erick THIRD LOADER-C Work Phone: [facility] 02-19-2024 15:29-0500 Body weight 42.63 kg Keke Erick THIRD LOADER-C Work Phone: [facility] 02-19-2024 15:29-0500 Diastolic blood pressure 55 mm[Hg] Keke Erick THIRD LOADER-C Work Phone: [facility] 02-19-2024 15:29-0500 Heart rate 61 /min Keke Erick THIRD LOADER-C Work Phone: [facility] 02-19-2024 15:29-0500 Respiratory rate 18 /min Keke Erick THIRD LOADER-C Work Phone: [facility] 02-19-2024 15:29-0500 SaO2% (BldA) [Mass fraction] 97 % Keke Erick THIRD LOADER-C Work Phone: [facility] 02-19-2024 15:29-0500 Systolic blood pressure 150 mm[Hg] Keke Erick THIRD LOADER-C Work Phone: [facility] 01-30-2024 14:30-0500 Body temperature 97.6 [degF] Keke Erick THIRD LOADER-C Work Phone: [facility] 01-30-2024 14:30-0500 Diastolic blood pressure 51 mm[Hg] Keke Erick THIRD LOADER-C Work Phone: [facility] 01-30-2024 14:30-0500 Heart rate 55 /min Keke Erick THIRD LOADER-C Work Phone: [facility] 01-30-2024 14:30-0500 Respiratory rate 18 /min Keke Erick THIRD LOADER-C Work Phone: [facility] 01-30-2024 14:30-0500 SaO2% (BldA) [Mass fraction] 97 % Keke Erick THIRD LOADER-C Work Phone: [facility] 01-30-2024 14:30-0500 Systolic blood pressure 120 mm[Hg] Keke Erick THIRD LOADER-C Work Phone: [facility] 01-30-2024 08:56-0500 Inhaled oxygen flow rate 2 L/min Keke Erick THIRD LOADER-C Work Phone: [facility] 01-30-2024 03:08-0500 Body mass index (BMI) [Ratio] 24.4 kg/m2 Keke Erick THIRD LOADER-C Work Phone: [facility] 01-30-2024 03:08-0500 Body weight 49.4 kg Keke Suarez THIRD LOADER-C Work Phone: [facility] 01-26-2024 11:13-0500 Body mass index (BMI) [Ratio] 22.1 kg/m2 Keke Erick THIRD LOADER-C Work Phone: [facility] 01-26-2024 11:13-0500 Body weight 44.9 kg Keke Erick THIRD LOADER-C Work Phone: [facility] 01-26-2024 11:13-0500 Diastolic blood pressure 89 mm[Hg] Keke Erick THIRD LOADER-C Work Phone: [facility] 01-26-2024 11:13-0500 Heart rate 48 /min Keke Erick THIRD LOADER-C Work Phone: [facility] 01-26-2024 11:13-0500 Respiratory rate 22 /min Keke Erick THIRD LOADER-C Work Phone: [facility] 01-26-2024 11:13-0500 SaO2% (BldA) [Mass fraction] 95 % Etna Erick THIRD LOADER-C Work Phone: [facility] 01-26-2024 11:13-0500 Systolic blood pressure 133 mm[Hg] Etna Erick THIRD LOADER-C Work Phone: [facility] Encounters Encounter Date Encounter Type Care Provider Facility Start: 07-28-2024 End: 07-28-2024 ambulatory Keke Suarez THIRD LOADER-C Work Phone: [facility] Work Phone: Start: 07-28-2024 End: 07-28-[address] Marley Zafar DO -Laboratory Work Phone: Start: 07-28-2024 End: 07-28-2024 ambulatory Keke Erick Facility:[facility] Start: 07-12-2024 [facility] Start: 07-12-2024 End: 07-12-2024 Admission to same day surgery center Joe Patterson DO -Endoscopy Work Phone: Start: 07-12-2024 End: 07-12-2024 ambulatory Keke Suarez THIRD LOADER-C Work Phone: [facility] Work Phone: Start: 07-11-2024 ambulatory Keke Suarez Facility:[facility] Start: 05-20-2024 End: 05-20-2024 ambulatory Keke Suarez THIRD LOADER-C Work Phone: [facility] Work Phone: Start: 05-20-2024 End: 05-20-2024 Patient encounter procedure Kekephilly Suarez THIRD LOADER-C -Laboratory Jose Lilly [facility] Start: 05-20-2024 End: 05-20-2024 Keke Suarez THIRD LOADER-C -Laboratory, Jose Lilly [facility] Start: 05-20-2024 End: 05-20-2024 ambulatory Keke Suarez Facility:[facility] Start: 05-16-2024 End: 05-16-2024 Patient encounter procedure Betty Rodriguez THIRD LOADER-C -[facility] Work Phone: Start: 05-16-2024 End: 05-16-2024 Betty Rodriguez THIRD LOADER-C -[facility] Work Phone: Start: 05-16-2024 End: 05-16-2024 ambulatory Keke Suarez Facility:[facility] Start: 04-15-2024 End: 04-15-2024 ambulatory Keke Suarez THIRD LOADER-C Work Phone: [facility] Work Phone: Start: 04-15-2024 End: 04-15-2024 Patient encounter procedure Joe Patterson DO -Radiology [facility] Work Phone: Start: 04-15-2024 End: 04-15-2024 Joe Patterson DO -Radiology, [facility] Work Phone: Start: 04-15-2024 End: 04-15-2024 Patient encounter procedure Joe Patterson DO [facility] Work Phone: Start: 04-15-2024 End: 04-15-2024 Joe Patterson DO [facility] Work Phone: Start: 04-15-2024 End: 04-15-2024 ambulatory [facility] Facility:[facility] Start: 04-15-2024 End: 04-15-2024 ambulatory [facility] Facility:[facility] Start: 03-09-2024 End: 04-07-2024 Dr. Segundo Sultana MD -Transitional Care U [facility] Start: 03-09-2024 End: 04-07-2024 Evaluation and management of inpatient Dr. Segundo Sultana MD -Transitional Care Unit Start: 03-09-2024 Dr. Elsy Zafar DO [facility] Work Phone: Start: 03-08-2024 Dr. Elsy Zafar [facility] Work Phone: Start: 03-07-2024 Dr. Elsy Zafar [facility] Work Phone: Start: 03-07-2024 Joe Patterson [facility] Start: 03-06-2024 Dr. Clotilde torres MD -[place] [facility] Work Phone: Start: 03-05-2024 Dr. Clotilde torres MD [facility] Work Phone: Start: 03-04-2024 Joe Patterson [facility] Start: 03-04-2024 Dr. Clotilde torres MD [facility] Work Phone: Start: 03-03-2024 Joeisabel Patterson [facility] Start: 03-03-2024 Dr. Clotilde torres MD [facility] Work Phone: Start: 03-02-2024 Dr. Clotilde torres MD [facility] Work Phone: Start: 03-01-2024 Joe Yesenia DO -[facility] Start: 03-01-2024 Dr. Clotilde torres MD -[place] [facility] Work Phone: Start: 02-29-2024 End: 03-09-2024 Evaluation and management of inpatient Elsy Zafar Facility:[facility] Start: 02-29-2024 End: 03-09-2024 Dr. Elsy Zafar DO -Medical Surgical 3 Work Phone: Start: 02-29-2024 ambulatory Etna Erick Facility:[facility] Start: 02-25-2024 End: 02-29-2024 Dr. Segundo Sultana MD -Transitional Care [facility] Start: 02-25-2024 End: 02-29-2024 Evaluation and management of inpatient Segundo Sultana Facility:[facility] Start: 02-25-2024 Dr. Warner Berg and -[facility] Work Phone: Start: 02-24-2024 Dr. Warner Berg and -[facility] Work Phone: Start: 02-23-2024 End: 02-23-2024 ambulatory Etna Erick Facility:[facility] Start: 02-23-2024 End: 02-23-2024 Dr. Colt Rodriguez MD -[facility] Work Phone: Start: 02-23-2024 Dr. Warner Berg and -[place] [facility] Work Phone: Start: 02-22-2024 ambulatory Etna Erick Facility:[facility] Start: 02-22-2024 End: 02-25-2024 Evaluation and management of inpatient [facility] Facility:[facility] Start: 02-22-2024 End: 02-25-2024 Dr. Warner Bustamante MD -Progressive Care Unit Work Phone: Start: 02-20-2024 End: 02-20-2024 [facility] THIRD LOADER-C -MRI - [facility] Work Phone: Start: 02-19-2024 End: 02-19-2024 Katharine MCDONNELL -[facility] Work Phone: Start: 02-19-2024 End: 02-20-2024 ambulatory Keke Erick Facility:[facility] Start: 02-08-2024 ambulatory [facility] Facility:[facility] Start: 02-08-2024 End: 02-08-2024 Dr. Colt Rodriguez MD -[facility] Work Phone: Start: 02-08-2024 End: 02-08-2024 ambulatory Etna Erick Facility:[facility] Start: 01-30-2024 Dr. Clotilde torres MD -[facility] Work Phone: Start: 01-29-2024 Dr. Clotilde torres MD -[facility] Work Phone: Start: 01-28-2024 Dr. Clotilde torres MD -[facility] Work Phone: Start: 01-27-2024 ambulatory Etna Erick Facility:[facility] Start: 01-27-2024 End: 01-30-2024 Evaluation and management of inpatient [facility] Facility:[facility] Start: 01-27-2024 End: 01-30-2024 Dr. Clotilde Tamayo MD -Progressive Care Unit Work Phone: Start: 01-26-2024 End: 01-26-2024 Katharine MCDONNELL -Radiology, [facility] Work Phone: Start: 01-26-2024 End: 01-26-2024 Katharine MCDONNELL -[facility] Work Phone: Start: 01-26-2024 End: 01-26-2024 ambulatory Keke Erick Facility:[facility] Start: 01-26-2024 End: 01-26-2024 ambulatory [facility] Facility:[facility] Start: 12-29-2023 End: 12-29-2023 Betty SANDYC -Laboratory Work Phone: Start: 12-29-2023 End: 12-29-2023 ambulatory Betty Rodriguez Facility:[facility] Start: 12-22-2023 ambulatory Keke Erick [facility] Start: 12-18-2023 ambulatory Keke Erick [facility] Start: 12-18-2023 End: 12-18-2023 [facility] Start: 12-10-2023 End: 12-10-2023 ambulatory [facility] Facility:[facility] Start: 11-12-2023 End: 11-12-2023 ambulatory [facility] Facility:[facility] Start: 11-10-2023 End: 11-10-2023 ambulatory [facility] Facility:[facility] Start: 10-21-2023 End: 10-21-2023 ambulatory [facility] Facility:[facility] Start: 10-14-2023 End: 10-14-2023 ambulatory [facility] Facility:[facility] Start: 10-06-2023 End: 10-06-2023 ambulatory [facility] Facility:[facility] Start: 08-19-2023 ambulatory Stefanie (Rn) Alison RN NURSE MOLDER OFFBEARER Start: 08-19-2023 Patient encounter procedure Stefanie (Rn) Alison RN NURSE MOLDER OFFBEARER Comment on above: Appointment Procedures Date Procedure Procedure Detail Performing Clinician Start: 07-28-2024 Serum inorganic phosphate measurement Keke Suarez THIRD LOADER-C Work Phone: Start: 07-12-2024 Fluoroscopic guidance Keke Suarez THIRD LOADER-C Work Phone: Start: 07-12-2024 End: 07-12-2024 Endoscopic retrograde cholangiopancreatography Keke Suarez THIRD LOADER-C Work Phone: Start: 04-15-2024 Plain X-ray abdomen Keke Nicholsongar THIRD LOADER-C Work Phone: Start: 04-07-2024 Estimated creatinine clearance Keke Nicholson yelena THIRD LOADER-C Work Phone: Start: 03-31-2024 Measurement of renal function Keke Alicia mathias THIRD LOADER-C Work Phone: Comment on above: GFR Calc Start: 03-30-2024 Viral antigen assay Keke Erick THIRD LOADER-C Work Phone: Start: 03-23-2024 Viral antigen assay Keke Erick [employer] LO[employer]C Work Phone: Start: 03-16-2024 Plain X-ray abdomen Keke Erick [employer] Work Phone: Start: 03-07-2024 End: 03-07-2024 Endoscopic retrograde cholangiopancreatography Keke Erick [employer]C Work Phone: Start: 03-07-2024 Fluoroscopic guidance Keke Erick [employer]C Work Phone: Start: 03-05-2024 Plain X-ray of shoulder Keke Erick [employer] LO[employer]ER- C Work Phone: Start: 03-04-2024 Colonoscopy Keke Erick [employer]C Work Phone: Start: 03-01-2024 Esophagogastroduodenoscopy Keke Erick [employer] LO[employer]C Work Phone: Start: 03-01-2024 Magnetic resonance cholangiopancreatography Keke Erick [employer] LO[employer]C Work Phone: Start: 02-29-2024 Computed tomography of abdomen and pelvis with contrast Keke Erick [employer] LO[employer]C Work Phone: Start: 02-29-2024 CT of head without contrast Keke Erick [employer] LO[employer]C Work Phone: Start: 02-29-2024 Plain chest X-ray Keke Erick [employer] LO[employer]C Work Phone: Start: 02-29-2024 Measurement of occult blood in stool specimen using immunoassay Keke Erick [employer] LO[employer]C Work Phone: Start: 02-25-2024 Plain X-ray abdomen Keke Erick [employer] LO[employer]C Work Phone: Start: 02-23-2024 Clostridium difficile detection Keke E dgar [employer]C Work Phone: Start: 02-23-2024 Lactoferrin measurement Keke Suarez [employer] LO[employer]ER- C Work Phone: Start: 02-23-2024 Nucleic acid assay Keke Suarez [employer] Work Phone: Start: 02-23-2024 Urine culture Keke Suarez [employer] LO[employer]C Work Phone: Start: 02-22-2024 Complete ultrasound of kidneys and bladder Keke Suarez [employer] LO[employer]C Work Phone: Start: 02-22-2024 Plain chest X-ray Keke Suarez [employer] LO[employer] Work Phone: Start: 02-22-2024 CT angiography of head and neck Keke diggs [employer] LO[employer]ER[employer]C Work Phone: Start: 02-22-2024 CT of head without contrast Keke Suarez [employer] LO[employer] Work Phone: Start: 02-20-2024 MRI of brain without contrast Keke mathias [employer] LO[employer]C Work Phone: Start: 02-19-2024 Evaluation of diagnostic study results Keke Suarez [employer]C Work Phone: Start: 01-28-2024 Videoswallow Keke Suarez [employer]C Work Phone: Start: 01-27-2024 Nucleic acid assay Keke Suarez [employer]C Work Phone: Start: 01-27-2024 Viral antigen assay Keke Suarez [employer]C Work Phone: Start: 01-26-2024 X-ray of chest, PA and lateral views Keke Suarez [employer] LO[employer]C Work Phone: Start: 01-26-2024 Evaluation of diagnostic study results Keke Suarez [employer] LO[employer]C Work Phone: Plan of Treatment Date Care Activity Detail Author Start: 07-12-2024 Endoscopic retrograde cholangiopancreatography ERCP Biliary/Pancreas [facility] Start: 07-12-2024 RF Guidance for endoscopy of Biliary ducts and Pancreatic duct-- W contrast retrograde [facility] Start: 07-12-2024 Ercp remove calculi/debris biliary/pancreas duct ERCP REMOVE DUCT CALCULI [facility] Start: 07-12-2024 Ercp remove foreign body/stent biliary/panc duct ERCP REMOVE FORGN BODY DUCT [facility] Start: 07-12-2024 Ercp w/sphincterotomy/papillotomy ENDO CHOLANGIOPANCREATOGRAPH [facility] Start: 07-12-2024 Patient discharge [facility] Start: 04-07-2024 Patient discharge [facility] Start: 04-06-2024 Development of care plan [facility] Start: 03-30-2024 Referral to service [facility] Start: 03-21-2024 [facility] Start: 03-18-2024 [facility] Start: 03-14-2024 Consultation for treatment [facility] Start: 03-10-2024 Consultation [facility] Start: 03-10-2024 Speech therapy management [facility] Start: 03-10-2024 Developing a treatment plan [facility] Start: 03-10-2024 Development of care plan [facility] Start: 03-10-2024 Speech therapy assessment [facility] Start: 03-09-2024 Speech therapy assessment [facility] Start: 03-09-2024 Admission procedure [facility] Start: 03-09-2024 Introduction of urinary catheter [facility] Start: 03-09-2024 Measuring intake and output [facility] Start: 03-09-2024 Patient referral to dietitian [facility] Start: 03-09-2024 Referral to occupational therapist [facility] Start: 03-09-2024 Referral to service [facility] Start: 03-09-2024 Vital signs measurements [facility] Start: 03-09-2024 [facility] Start: 03-09-2024 Patient discharge [facility] Start: 03-08-2024 Care planning and problem solving actions [facility] Start: 03-07-2024 Care planning and problem solving actions [facility] Start: 03-06-2024 [facility] Start: 03-05-2024 [facility] Start: 03-03-2024 [facility] Start: 03-03-2024 Referral to occupational therapist [facility] Start: 03-03-2024 Referral to service [facility] Start: 03-03-2024 Administration of blood product [facility] Start: 03-01-2024 Development of care plan [facility] Start: 02-29-2024 Application of intermittent pneumatic compression device [facility] Start: 02-29-2024 Assessment of risk of venous thromboembolism [facility] Start: 02-29-2024 Insertion of catheter into peripheral vein [facility] Start: 02-29-2024 Providing care according to standard [facility] Start: 02-29-2024 Provision of activity privileges [facility] Start: 02-29-2024 Referral to gastroenterology service [facility] Start: 02-29-2024 [facility] Start: 02-29-2024 Following clinical pathway protocol [facility] Start: 02-29-2024 Admission procedure [facility] Start: 02-29-2024 Patient discharge [facility] Start: 02-29-2024 Referral to gastroenterology service [facility] Start: 02-29-2024 Administration of blood product [facility] Start: 02-29-2024 [facility] Start: 02-29-2024 Consultation [facility] Start: 02-29-2024 Patient discharge [facility] Start: 02-29-2024 Patient referral to dietitian [facility] Start: 02-26-2024 Speech therapy management [facility] Start: 02-26-2024 Development of care plan [facility] Start: 02-26-2024 Developing a treatment plan [facility] Start: 02-25-2024 Following clinical pathway protocol [facility] Start: 02-25-2024 Speech therapy assessment [facility] Start: 02-25-2024 Admission procedure [facility] Start: 02-25-2024 Introduction of urinary catheter [facility] Start: 02-25-2024 Measuring intake and output [facility] Start: 02-25-2024 End: 02-26-2024 Patient referral to dietitian [facility] Start: 02-25-2024 Referral to occupational therapist [facility] Start: 02-25-2024 Referral to service [facility] Start: 02-25-2024 Vital signs measurements [facility] Start: 02-25-2024 [facility] Start: 02-25-2024 Patient discharge [facility] Start: 02-25-2024 Consultation [facility] Start: 02-23-2024 Referral to woodworking bench carpenter [facility] Start: 02-22-2024 Following clinical pathway protocol [facility] Start: 02-22-2024 Aspiration precautions [facility] Start: 02-22-2024 Assessment of risk of venous thromboembolism [facility] Start: 02-22-2024 Cardiac monitoring [facility] Start: 02-22-2024 Catheterization of vein [facility] Start: 02-22-2024 Consultation [facility] Start: 02-22-2024 Continuous pulse oximetry [facility] Start: 02-22-2024 Elevation of head of bed [facility] Start: 02-22-2024 Exercises [facility] Start: 02-22-2024 Insertion of catheter into peripheral vein [facility] Start: 02-22-2024 Measuring intake and output [facility] Start: 02-22-2024 Notification of physician [facility] Start: 02-22-2024 [facility] Start: 02-22-2024 Providing care according to standard [facility] Start: 02-22-2024 Provision of activity privileges [facility] Start: 02-22-2024 Referral to occupational therapist [facility] Start: 02-22-2024 Referral to service [facility] Start: 02-22-2024 Speech therapy assessment [facility] Start: 02-22-2024 Telemedicine consultation with patient [facility] Start: 02-22-2024 Tobacco use cessation education [facility] Start: 02-22-2024 End: 02-22-2024 [facility] Start: 02-22-2024 Vital signs measurements [facility] Start: 02-22-2024 Admission procedure [facility] Start: 02-22-2024 Patient referral to dietitian [facility] Start: 01-30-2024 Patient discharge [facility] Start: 01-29-2024 Referral to service [facility] Start: 01-27-2024 Oxygen therapy [facility] Start: 01-27-2024 Speech therapy assessment [facility] Start: 01-27-2024 Application of elastic bandage [facility] Start: 01-27-2024 Assessment of risk of venous thromboembolism [facility] Start: 01-27-2024 Elevation of affected extremity [facility] Start: 01-27-2024 Inhalation therapy procedure [facility] Start: 01-27-2024 Insertion of catheter into peripheral vein [facility] Start: 01-27-2024 Measuring intake and output [facility] Start: 01-27-2024 Notification of physician [facility] Start: 01-27-2024 Patient education [facility] Start: 01-27-2024 Providing care according to standard [facility] Start: 01-27-2024 Provision of activity privileges [facility] Start: 01-27-2024 Referral to occupational therapist [facility] Start: 01-27-2024 Referral to service [facility] Start: 01-27-2024 [facility] Start: 01-27-2024 Following clinical pathway protocol [facility] Start: 01-27-2024 Admission procedure [facility] Start: 01-27-2024 Patient referral to dietitian [facility] Start: 10-11-2023 Influenza vaccination Influenza Vaccine (#1) [facility] Start: 09-01-2023 End: 09-01-2023 Patient encounter procedure 09/01/2023 10:30 [place] [address] [place] [address] est care [facility] Comment on above: est care Start: 02-09-2023 Advance Directive Discussion [facility] Start: 02-09-2023 Behavioral Health Screening Behavioral Health Screening [facility] Start: 10-10-2022 Covid-19 Vaccine ( season) Covid-19 Vaccine () [facility] Start: 07-15-2016 Diabetes Screening Diabetes Screening [facility] Start: 10-18-2009 Pneumococcal Vaccine: 65+ (2 of 2 - PCV) Pneumococcal Vaccine: 65+ (2 of 2 - PCV) [facility] Start: 1997 RSV Vaccine (1 - 1-dose 60+ series) RSV Vaccine (1 - 1-dose 60+ series) [facility] Start: 07-21-1987 Shingrix Vaccine (1 of 2) Shingrix Vaccine (1 of 2) [facility] Start: 1956 Urine microalbumin profile DTaP,Tdap,Td Vaccine (1 - Tdap) [facility] Patient Education [facility] Work Phone: Patient referral [facility] Work Phone: Immunizations Immunization Date Immunization Notes Care Provider Fa [facility] 11-10-2023 Influenza High-Dose Quadrivalent Keke Suarez [employer] LO[employer] Work Phone: [facility] 11-16-2013 influenza, injectabl e, quadrivalent, preservative free Keke Suarez [employer]C Work Phone: [facility] 11-16-2013 influenza, seasonal, injectable Stefanie Rosas RN [facility] 11-16-2013 influenza virus vacc ine, unspecified formulation Stefanie Rosas RN [facility] 10-18-2008 pneumococcal polysaccharide vaccine, 23 valent Stefanie Rosas RN [facility] Payers Date Payer Category Payer Self-pay 2023 Private Health Insurance [id number] 2013 Medicare HU[employer]NA MEDICARE HU[employer] GOLD PLUS [id number] 2013-Present [phone] [place] [id number] HMO [id number] 2005 Unknown [id number] Unknown [id number] 03.27.830.1.444323.3.579. 2.462 Unknown [id number] 03.27.830.1.982266.3.579. 2.462 Unknown [id number] 2.16.840.1.426591.3.579. 2.462 Unknown [id number] 2.16.840.1.653057.3.579. 2.462 Unknown [id number] 2.16.840.1.766815.3.579. 2.462 Unknown [id number] 2.16.840.1.128198.3.579. 2.462 Unknown [id number] 2.16.840.1.196903.3.579. 2.462 Unknown [id number] 2.16.840.1.487339.3.579. 2.462 Unknown [id number] 2.16.840.1.835675.3.579. 2.462 Unknown [id number] 2.16.840.1.427388.3.579. 2.462 Unknown [id number] 2.16.840.1.313122.3.579. 2.462 Unknown [id number] 2.16.840.1.317471.3.579. 2.462 Unknown [id number] 2.16.840.1.734979.3.579. 2.462 Unknown [id number] 2.16.840.1.991163.3.579. 2.462 Unknown [id number] 2.16.840.1.805947.3.579. 2.462 Unknown [id number] 2.16.840.1.822550.3.579. 2.462 Unknown [id number] 2.16.840.1.856600.3.579. 2.462 Unknown [id number] 2.16.840.1.664203.3.579. 2.462 Unknown [id number] 2.16.840.1.577484.3.579. 2.462 Unknown [id number] 2.16.840.1.438130.3.579. 2.462 Unknown [id number] 2.16.840.1.719875.3.579. 2.462 Unknown [id number] 2.16.840.1.464449.3.579. 2.462 Unknown [id number] 2.16.840.1.092423.3.579. 2.462 Unknown [id number] 2.16.840.1.801054.3.579. 2.462 Unknown [id number] 2.16.840.1.808374.3.579. 2.462 Unknown [id number] 2.16.840.1.629086.3.579. 2.462 Unknown [id number] 2.16840.1.445348.3.579. 2.462 Unknown [id number] 2.16840.1.641408.3.579. 2.462 Unknown [id number] 2.840.1.411993.3.579. 2.462 Unknown [id number] 2.840.1.434302.3.579. 2.462 Unknown [id number] 2.840.1.499904.3.579. 2.462 Unknown [id number] 2.840.1.147802.3.579. 2.462 Unknown [id number] 2.840.1.159855.3.579. 2.462 Unknown [id number] 2.16840.1.330678.3.579. 2.462 Unknown [id number] 2.16840.1.209247.3.579. 2.462 Unknown [id number] 2.16840.1.303387.3.579. 2.462 Unknown [id number] 2.16840.1.540411.3.579. 2.462 Unknown [id number] 2.16840.1.161100.3.579. 2.462 Unknown [id number] 2.16840.1.194431.3.579. 2.462 Unknown [id number] 2.16.840.1.237747.3.579. 2.462 Unknown [id number] 2.16.840.1.793242.3.579. 2.462 Unknown [id number] 2.16.840.1.874708.3.579. 2.462 Unknown [id number] 2.16.840.1.755027.3.579. 2.462 Unknown [id number] 2.16.840.1.723981.3.579. 2.462 Unknown [id number] 2.16.840.1.760794.3.579. 2.462 Unknown [id number] 2.16.840.1.241412.3.579. 2.462 Unknown [id number] 2.16.840.1.659835.3.579. 2.462 Unknown [id number] 2.16.840.1.693510.3.579. 2.462 Unknown [id number] 2.16.840.1.798538.3.579. 2.462 Unknown [id number] 2.16.840.1.509969.3.579. 2.462 Unknown [id number] 2.16.840.1.320110.3.579. 2.462 Unknown [id number] 2.16.840.1.381273.3.579. 2.462 Unknown [id number] 2.16840.1.316837.3.579. 2.462 Unknown [id number] 2.16840.1.562059.3.579. 2.462 Social History Date Type Detail Facility Start: 07-15-2013 End: 07-06-2024 Tobacco smoking status NHIS Never smoked tobacco [facility] Start: 01-16-2014 Alcohol intake Current non-dr coronado of alcohol (finding) [facility] Start: 1935 Sex Assigned At Not on file [facility] Gender identity Not on file [facility] Start: 04-27-2024 End: 05-23-2024 Sex Female (finding) [facility] Start: 1935 Sex Assigned At Female [facility] NEGATED: Highlighted row [facility] Medical Equipment Procedure Code Equipment Code Equipment Origin al Text Equipment Identifier Dates ERCP (endoscopic retrograde cholangiopancreatog christina) ([id number]) [id number] FDA Start: 03-07-2024 ERCP (endoscopic retrograde cholangiopancreatog christina) ()[id number] FDA Start: 03-07-2024 Goals Date Patient Goal Desired Activity /State Functional Status Date Assessment Result Facility 04-07-2024 Functional status Chair;Bedrest; Bathroom Privilege [facility] Work Phone: 04-06-2024 Functional status Fair [facility] Work Phone: 03-09-2024 Functional status Chair [facility] Work Phone: 02-29-2024 Functional status Chair [facility] Work Phone: 02-25-2024 Functional status Ambulates [facility] Work Phone: 01-30-2024 Functional status Chair [facility] Work Phone: Mental Status Date Assessment Result Facility 07-12-2024 Cognitive function Voice/Name [facility] Work Phone: 04-07-2024 Cognitive function Voice/Name [facility] Work Phone: 03-22-2024 Cognitive function Appropriate;[facility] Work Phone: 03-09-2024 Cognitive function Voice/Name [facility] Work Phone: 02-28-2024 Cognitive function Voice/Name [facility] Work Phone: 02-27-2024 Cognitive function Appropriate;[facility] Work Phone: 02-25-2024 Cognitive function Voice/Name [facility] Work Phone: 01-30-2024 Cognitive function Voice/Name [facility] Work Phone: Clinical Notes 08-19-2023 to 07-12-2024 Note Date & Type Note Facility 07-12-2024 Consult note Note Date/Time July 12, 2024 1:15p m [facility] Medical Records Department [address] [place] [address] Pre-Anesthesia Evaluation 07/12/24 1305 MR#: [id number] Acct: [id number] Name: MCKENNA GIRON Rep #:[id number] 16 : 1935 88 From: [place] Mcdowell MD PCP: MARLEE Bolivar Status:REG SDC Y Race: C Location: [place] [address] ASA Classification* ASA Classification ASA Classification: 3 Assessment & Plan Anesthesia* Anesthesia Assessment Anesthesia Assessment: Discussed sedation and/or anesthesia options, risks, benefits, and alternatives with patient/parents/legal guardian/POA. Questions invited. The patient/parents/legal guardian/POA seems to understand and agrees to proceedwith anesthesia plan. Reviewed the physical assessment, medical history, allergy history and patient home medications list prior to surgery/procedure/anesthetic and documented any changes. Performed airway and anesthesia risk assessments. Anesthesia Type Anesthesia Type: MAC History Source History Obtained from:: Patient and Chart Anesthesia Focused Assessment* Temperature: 98.2 F Pulse Rate: 62 Blood Pressure: 131/73 Respiratory Rate: 18 Pulse Ox: 100 Oxygen Delivery Method: Room Air Airway Assessment Mouth opens: >3 cm Mallampati Score: IV Teeth Condition: Dentures (Upper partials are out.) and Partial (Patient has a lower partial) Neck Range of motion (ROM): Limited ROM (Slight decrease in extension) Focused Labs Anesthesia Preop lab: CBC WBC 6.1 K/mm3 (4.4-11.0) 05/20/24 11:45 05/20/24 RBC 3.37 M/mm3 (4.2-5.4) L 05/20/24 11:45 05/20/24 Hgb 10.7 g/dL (12.0-15.0) L 05/20/24 11:45 5 Hct 33.6 % (37-47) L 05/20/24 11:45 05/20/24 Plt Count 344 K/mm3 (150-450) 05/20/24 11:45 05/20/24 CHEMISTRY Potassium 4.4 mmol/L (3.3-5.1) 05/20/24 11:45 05/20/24 Sodium 141 mmol/L (133-145) 05/20/24 11:45 05/20/24 Magnesium 1.9 mg/dL (1.6-2.6) 03/08/24 06:57 03/08/24 Phosphorus 4.6 mg/dL (2.5-4.9) 03/08/24 06:57 03/08/24 BUN 47 mg/dL (4-19) H 05/20/24 11:45 05/20/24 Creatinine 1.28 mg/dL (0.70-1.20) H 05/20/24 11:45 Glucose 88 mg/dL (70-99) 05/20/24 11:45 05/20/24 POC Glucose 97 mg/dL (74-106) 02/29/24 16:06 02/29/24 TSH 3.370 uIU/mL (0.358-3.740) 02/23/24 06:04 02/09 06/03 COAG PT 16.7 SECONDS (11.7-14.9) H 02/25/24 05:09 02/09 08/03 Pre-Assessment Diagnosis/Proposed Procedure Planned Operative Procedure(s): ERCP Anesthesia History Anesthesia History - wood buffer: Anesthesia History - wood buffer Hx Hospitalization Yes: 02/2024 ABD PAIN, ERCP 07/06/24 15:32 Any Problems With Anesthesia No 07/06/24 15:32 Cholinesterase deficiency No 07/06/24 15:32 You/Your Family Experience No 07/06/24 15:32 fever (hyperthermia) with Relationship Recent Exposure to Contagious No 07/12/24 12:44 Disease Does patient have nerve No 07/06/24 15:32 stimulator Patient instructed to have device shut off --Does patient have Pacemaker No 07/12/24 12:44 or ICD? When Was Last Pacemaker Check QUESTION #4 FULL TEXT: You/Your Family Experience fever (hyperthermia) with Anesthesia Last Oral Intake Last Oral intake: Last Oral Intake NPO since 00:00 07/12/24 12:44 Meds taken in AM with sips of No 07/12/24 12:44 water? Meds patient instructed to take am of surgery PONV PONV - wood buffer: PONV - wood buffer Female Yes 07/06/24 15:32 HX of Motion Sickness No 07/06/24 15:32 HX of N/V After Surgery No 07/06/24 15:32 Non-Smoker Yes 07/06/24 15:32 Duration of Surgery greater No 07/06/24 15:32 than 60 minutes Number of Risk Factors 2 07/06/24 15:32 PONV Score Moderate Risk 07/06/24 15:32 Height & Weight Height & Weight: Anesthesia: Height & Weight Height 4 ft 8 in 07/12/24 12:44 Weight: 46 kg 07/12/24 12:44 Body Mass Index (BMI) 22.7 07/12/24 12:44 Respiratory Assessment Respiratory Assessment - wood buffer: Respiratory Tract Infection Hx - wood buffer Hx Respiratory Tract Infection No 07/06/24 15:32 STOP Sleep Apnea STOP Sleep Apnea - wood buffer: STOP Sleep Apnea - wood buffer Hx Hypertension Yes: CONTROLLED WITH MED 07/06/24 15:32 Hx Sleep Apnea No 07/06/24 15:32 CPAP BIPAP Do you snore loudly (louder No 07/06/24 15:32 than talking or can be heard Do you often feel tired/ No 07/06/24 15:32 fatigued/ sleepy during daytime? Has anyone observed you stop No 07/06/24 15:32 breathing during sleep? STOP Results Negative 07/06/24 15:32 QUESTION #5 FULL TEXT : Do you snore loudly (louder than talking or can be heard through closed doors)? Tobacco Use History Tobacco Use History - wood buffer: Tobacco Use History - wood buffer Tobacco Use Smoking Status Never smoker 07/06/24 15:32 Hx Tobacco Use No 07/06/24 15:32 Years Smoking Packs Smoked per Day Smoking Cessation Date was within the last 15 years Hx Smoking Cessation Date Hx Smoking Cessation No 07/06/24 15:32 Counseling Hematologic Medial History Hematologic Hx - wood buffer: Hematologic Medical Hx - case management assistant Hx of Blood Transfusion Yes 07/06/24 15:32 Hx of Transfusion in last 3 No 07/06/24 15:32 Months Date of Last Transfusion (if within last 3 months) Ever experience any problems No 07/06/24 15:32 with transfusion(s)? Specify any problems Hx of Preganancy in last 3 N/A 07/06/24 15:32 Months Nurse Filling Out Transfusion NBUCHER 07/06/24 15:32 & Questions: Date: 07/06/24 07/06/24 15:32 Time: 15:37 07/06/24 15:32 Patient unable to answer at this time (ie. confused, unrespo /Reproduction History /Reproductive History - wood buffer: /Reproductive Hx- wood buffer Hx Now No 07/06/24 15:32 Gestational Age (in weeks): EDC: Hx Hx Para Hx Section SAB No 07/06/24 15:32 Active Medications Active Medications: Current Medications Generic Name Dose Route Start Last Admin Trade Name Freq PRN Reason Stop Dose Admin Lactated Ringer's 1,000 mls @ 15 mls/hr 07/12/24 12:30 07/12/24 12:56 IV 15 mls/hr .Q48H SAY Administration PFSH Medical History Wears hearing aid Loss of hearing Wears glasses Wears partial dentures Wears dentures Post-menopausal Walker as ambulation aid Ambulates with cane History of renal disease Low iron High cholesterol Diverticulosis History of hiatal hernia History of edema Non-smoker Cardiology follow-up encounter History of Holter monitoring History of echocardiogram Hypertension History of atrial fibrillation Choledocholithiasis Ischemic colitis Iron deficiency anemia Debility CKD stage 3b, 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 CVA (cerebral vascular accident) Renal failure 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, sinus Hyperlipidemia Aortic valve disease Cardiac arrhythmia Fibromyalgia CKD (chronic kidney disease) stage 3, GFR 30-59 ml/min Rheumatoid arthritis Osteoporosis Afib Essential (primary) hypertension Shoulder pain with history of repair of rotator cuff Sjogren syndrome Home Medications ?Medication ?Instructions ?Recorded ?Last Taken ?Type cholecalciferol (vitamin D3) 125 125 mcg PO QODAY supp lement 09/07/23 03/09/24 10:00 History mcg (5,000 unit) capsule gabapentin 300 mg capsule 300 mg PO BID Nerve pain 03/09/24 10:00 History mecobalamin (vitamin B12) 1,000 1,000 mcg PO QMWF supp lement 09/07/23 03/09/24 10:00 History mcg chewable tablet hydroxychloroquine 200 mg tablet 200 mg PO DAILY Immun osupressive 01/27/24 03/09/24 10:00 History acetaminophen 500 mg tablet 1,000 mg (2 x 500 mg) PO Q 6H PRN 04/01/24 Unknown Rx PRN Pain Score 1-10 #0 tabs amlodipine 5 mg tablet 5 mg PO DAILY 30 days #30 ta bs 04/01/24 Unknown Rx pantoprazole 40 mg tablet,delayed 40 mg PO DAILY 30 da ys #30 tabs 04/01/24 Unknown Rx release atorvastatin 40 mg tablet 40 mg PO DAILY cholesterol # 30 tabs 05/16/24 Unknown Rx apixaban 5 mg tablet (Eliquis) 5 mg PO BID 07/06/24 History Allergy/AdvReac Type Severity Reaction Status Date / Time ciprofloxacin (From Cipro) Allergy Intermediate NEEDS Verified 07/12/24 12:43 FOLLOW-UP duloxetine Allergy Intermediate NEEDS Verified 07/12/24 12:43 FOLLOW-UP ibuprofen Allergy Intermediate NEEDS Verified 07/12/24 12:43 FOLLOW-UP meloxicam Allergy Intermediate NEEDS Verified 07/12/24 12:43 FOLLOW-UP Penicillins Allergy Intermediate NEEDS Verified 07/12/24 12:43 FOLLOW-UP sulfamethoxazole (From Allergy Intermediate NEEDS Verified 07/12/24 12:43 Septra) FOLLOW-UP trimethoprim (From Septra) Allergy Intermediate NEEDS Verified 07/12/24 12:43 FOLLOW-UP Surgical History History of repair of rectocele History of bladder repair surgery History of ERCP History of appendectomy History of cardiac radiofrequency ablation (RFA) S/P hernia repair Social History household members: family housing: house Smoking Status: Never smoker alcohol intake: never substance use type: does not use Review of Systems (Anesthesia) ROS Narrative System reviewed and no additional complaints, except as documented. 07/12/24 1315 <Electronically signed by Montana langford MD> Date _ Montana Jacobson Signature: Date CC: ~ Signed [facility] Work Phone: 1(877) 998-103506-03-2025 Consult note [facility] Medical Records Department [address] [place] [address] Anesthesia Postop Eval I 07/12/24 1446 MR#: [id number] Acct: [id number] Name: MCKENNA GIRON Rep #:[id number] : 1935 88 From: Sam Angulo PCP: MARLEE Bolivar Status:REG SDC Y Race: C Location: [place] [address] Anesthesia: Postop Eval I Current Vital Signs Temperature: 97 F Pulse Rate: 88 Blood Pressure: 108/58 Respiratory Rate: 14 Pulse Ox: 98 Oxygen Delivery Method: Room Air Assessment Airway patent: Yes Spontaneous unlabored respirations: Yes Mental status: Awake and Calm nausea: No Vomiting: No Anesthesia Complication: No Fluid Hydration Crystalloid volume administer (ml): 500 Total IV fluid infused: 500 Progress Note Anesthesia document: Postop Eval 1 completed: Yes 07/12/24 1447 > Date _ Sam Jacobson Signature: Date CC: ~ Signed [facility]06-03-2025 Procedure note [facility] Medical Records Department [address] [place] [address] Operative Report - CC Letter MR#: [id number] Acct: [id number] Name: MCKENNA GIRON Rep #:[id number] : 1935 88 From: Joe Patterson DO PCP: MARLEE Bolivar Status[place] [facility] 07/12/2024 Marlee Bolivar Re : ERCP procedure for Mckenna Giron Dear Erick This procedure was performed on Friday, July 12, 2024. 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 The stricture was benign appearing. - The biliary system were moderately dilated, secondary to a stricture. - The patient has had a cholecystectomy. - Choledocholithiasis was found. Complete removal was accomplished by biliary sphincterotomy and balloon extraction. - A pancreatic sphincterotomy was performed. - The ventral pancreatic duct was swept and nothing was found. - One stent was removed from the pancreatic duct. - One stent was removed from the common bile duct. - A biliary sphincterotomy was performed. - The biliary tree was swept. - Cells for cytology obtained in the lower third of the main duct. Recommendations : My findings are described in the full procedure note, which is enclosed. If I can be of further assistance, please feel free to contact me at . Sincerely, Joe Patterson DO 07/12/2024 2:39:37 PM This report has been signed electronically. 07/12/24 1439 Date _ Joe Haganigner Signature: Date (if indicated) CC: MARLEE Suarez; Joe Patterson DO ~ Date Dictated: 07/12/24 1350 Date Transcribed: Desk Lieutenant: BRANDT Signed [facility]06-03-2025 Procedure note [facility] Medical Records Department [address] [place] [address] ERCP Report MR#: [id number] Acct: [id number] Name: MCKENNA GIRON Rep #:[id number] : 1935 88 From: Joe Patterson DO PCP: MARLEE Bolivar Status:REG SD Patient Name: Mckenna Giron Procedure Date: 07/12/2024 1:50 PM Date of : 1935 Age: 88 Procedure: ERCP Indications: Bile duct stone(s), Elevated liver enzymes, Acute pancreatitis, Biliary stent removal, Pancreatic stent removal Providers: Joe Patterson DO Referring MD: Marlee Bolivar Medicines: Monitored Anesthesia Care Patient Profile: This is an 88 year old female. Refer to note in patient chart for documentation of history and physical. Patient has symptoms of acute dyspepsia and acute jaundice. Complications: No immediate complications. Procedure: Pre-Anesthesia Assessment: - Prior to the procedure, a History and Physical was performed, and patient medications and allergies were reviewed. The patient is competent. The risks and benefits of the procedure and the sedation options and risks were discussed with the patient. All questions were answered and informed consent was obtained. Patient identification and proposed procedure were verified by the physician in the pre-procedure area. Mental Status Examination: alert and oriented. Airway Examination: normal oropharyngeal airway and neck mobility. Respiratory Examination: clear to auscultation. CV Examination: normal. Prophylactic Antibiotics: The patient does not require prophylactic antibiotics. Prior Anticoagulants: The patient has taken no anticoagulant or antiplatelet agents except for NSAID medication. ASA Grade Assessment: II - A patient with mild systemic disease. After reviewing the risks and benefits, the patient was deemed in satisfactory condition to undergo the procedure. The anesthesia plan was to use monitored anesthesia care (MAC). Immediately prior to administration of medications, the patient was re-assessed for adequacy to receive sedatives. The heart rate, respiratory rate, oxygen saturations, blood pressure, adequacy of pulmonary ventilation, and response to care were monitored throughout the procedure. The physical status of the patient was re-assessed after the procedure. After obtaining informed consent, the scope was passed under direct vision. Throughout the procedure, the patient's blood pressure, pulse, and oxygen saturations were monitored continuously. The Duodenoscope was introduced through the mouth, and advanced to the duodenum and used to inject contrast into the bile duct and ventral pancreatic duct. The ERCP was accomplished without difficulty. The patient tolerated the procedure well. Scope In: 2:13:50 PM Scope Out: 2:30:43 PM Total Procedure Duration Time 0 hours 16 minutes 53 seconds Findings: The print shop assistant film was normal. The esophagus was successfully intubated under direct vision. The scope was advanced to a normal major papilla in the descending duodenum without detailed examination of the pharynx, larynx and associated structures, and upper GI tract. The upper GI tract was grossly normal. The ventral pancreatic duct was deeply cannulated with the short-nosed traction sphincterotome. Contrast was injected. I personally interpreted the bile duct and pancreatic duct images. Ductal flow of contrast was adequate. Image quality was adequate. Contrast extended to the main bile duct. Contrast extended to the bifurcation. Contrast extended to the entire biliary tree. Contrast extended to the pancreatic duct. Opacification of the entire pancreatic ductal system was successful. The maximum diameter of the ducts was 3 mm. The entire opacified area was normal. A long 0.025 inch Jagwire was passed into the ventral pancreatic duct. A 5 mm ventral pancreatic sphincterotomy was made with a traction (standard) sphincterotome using ERBE electrocautery. There was no post-sphincterotomy bleeding. To find object(s) the ventral pancreatic duct was swept with a 6 mm balloon starting at the pancreatic duct in the body of the pancreas. Nothing was found. One stent was removed from the pancreatic duct using a snare and sent for cytology. The stent was found to be occluded via the water column test. One stent was removed from the common bile duct using a snare and sent for cytology. The stent was found to be partially occluded via the water column test. The bile duct was deeply cannulated with the short-nosed traction sphincterotome. Contrast was injected. Opacification of the entire opacified area and entire biliary tree was successful. The maximum diameter of the ducts was 10 mm. The lower third of the main bile duct contained a single localized stenosis 6 mm in length. The entire opacified area was moderately dilated, secondary to a stricture. The largest diameter was 11mm. A cholecystectomy had been performed. A straight Roadrunner wire was passed into the biliary tree. A 5 mm biliary sphincterotomy was made with a traction (standard) sphincterotome using ERBE electrocautery. There was no post-sphincterotomy bleeding. The biliary tree was swept with a 12 mm balloon starting at the upper third of the main bile duct, middle third of the main bile duct, bifurcation, left intrahepatic duct(s), left main hepatic duct and right main hepatic duct. Sludge was swept from the duct. All stones were removed. Cells for cytology were obtained by brushing in the lower third of the main bile duct. 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 The stricture was benign appearing. - The biliary system were moderately dilated, secondary to a stricture. - The patient has had a cholecystectomy. - Choledocholithiasis was found. Complete removal was accomplished by biliary sphincterotomy and balloon extraction. - A pancreatic sphincterotomy was performed. - The ventral pancreatic duct was swept and nothing was found. - One stent was removed from the pancreatic duct. - One stent was removed from the common bile duct. - A biliary sphincterotomy was performed. - The biliary tree was swept. - Cells for cytology obtained in the lower third of the main duct. Procedure Code(s): --- Professional --- 15983, Endoscopic retrograde cholangiopancreatography (ERCP); with removal of foreign body(s) or stent(s) from biliary/pancreatic duct(s) 57767, Endoscopic retrograde cholangiopancreatography (ERCP); with removal of calculi/debris from biliary/pancreatic duct(s) 70399, Endoscopic retrograde cholangiopancreatography (ERCP); with sphincterotomy/papillotomy 66758, Endoscopic retrograde cholangiopancreatography (ERCP); with sphincterotomy/papillotomy 11045, 26, Combined endoscopic catheterization of the biliary and pancreatic ductal systems, radiological supervision and interpretation CPT copyright 2021 [employer]. All rights reserved. The codes documented in this report are preliminary and upon hims coder review may be revised to meet current compliance requirements. Joe Patterson DO 07/12/2024 2:39:37 PM This report has been signed electronically. Number of Addenda: 0 Note Initiated On: 07/12/2024 1:50 PM 07/12/24 1439 Date _ Joe Haganignmadai Signature: Date (if indicated) CC: THIRD LOADER-C Keke Suarez; Joe Patterson DO ~ Date Dictated: 07/12/24 1350 Date Transcribed: Desk Lieutenant: BRANDT Signed [facility]06-03-2025 History and physical note Author Joe Patterson [facility] Note Date/Time July 12, 2024 12:36 pm [facility] Medical Records Department [address] [facility] [place] [address] History & Physical Exam 07/12/24 1233 MR#: [id number] Acct: [id number] Name: MCKENNA GIRON KRISTIE Rep #:[id number] : 1935 88 From: Joe Patterson DO PCP: MARLEE Bolivar [place] [facility] Location: [place] [address] HPI - General General Date of Admission: 07/12/24 Date of Service: 07/12/24 HPI Narrative MCKENNA GIRON, is a 88 F who presentsSHIRELISA GIRON, is a 88 F who presents to the office today for hospital follow up. [facility] hospitalization 02.29.24 - 03.09.24 abd pain --- GI consulted for bleeding / anemia EGD 03.01.24 Normal esophagus. Erythematous mucosa in the gastric body and antrum. No gross lesions in the second portion of the duodenum. No specimens collected. Colonoscopy 03.04.24 Patchy moderate inflammation was found in the recto-sigmoid colon, in the sigmoid colon and in the descending colon secondary to ischemic colitis. Biopsied. Diverticulosis in the recto-sigmoid colon, in the sigmoid colon, in the descending colon, at the splenic flexure and in the transverse colon. Rectal prolapse. Non-bleeding internal hemorrhoids. ERCP 03.07.24 A single localized biliary stricture was found in the lower third of the main bile duct. The stricture was indeterminate. The entire biliarytree was dilated, acquired. An irregularity was found in the pancreatic duct in the body of the pancreas and pancreatic duct in the tail of the pancreas. Choledocholithiasis was found. Complete removal was accomplished by biliary sphincterotomy and balloon extraction. A pancreatic sphincterotomy was performed. The biliary tree was swept and debris was found. A biliary sphincterotomy was performed. The biliary tree was swept. One temporary stent was placed into the common bile duct. OV 3.7.25 pt reports that she has been feeling well since hospitalization. Has had some bloating and discomfort on her R side, but states that this is infrequent. Reports normal bm and denies blood in the stool. 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 CVA (cerebral vascular accident) Renal failure 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, sinus Hyperlipidemia Aortic valve disease Cardiac arrhythmia Fibromyalgia CKD (chronic kidney disease) stage 3, GFR 30-59 ml/min Rheumatoid arthritis Osteoporosis Afib Essential (primary) hypertension Shoulder pain with history of repair of rotator cuff Sjogren syndrome Home Medications ?Medication ?Instructions ?Recorded ?Last Taken ?Type cholecalciferol (vitamin D3) 125 125 mcg PO QODAY supp lement 09/07/23 03/09/24 10:00 History mcg (5,000 unit) capsule gabapentin 300 mg capsule 300 mg PO BID Nerve pain 03/09/24 10:00 History mecobalamin (vitamin B12) 1,000 1,000 mcg PO QMWF supp lement 09/07/23 03/09/24 10:00 History mcg chewable tablet hydroxychloroquine 200 mg tablet 200 mg PO DAILY Immun osupressive 01/27/24 03/09/24 10:00 History acetaminophen 500 mg tablet 1,000 mg (2 x 500 mg) PO Q 6H PRN 04/01/24 Unknown Rx PRN Pain Score 1-10 #0 tabs amlodipine 5 mg tablet 5 mg PO DAILY 30 days #30 ta bs 04/01/24 Unknown Rx pantoprazole 40 mg tablet,delayed 40 mg PO DAILY 30 da ys #30 tabs 04/01/24 Unknown Rx release atorvastatin 40 mg tablet 40 mg PO DAILY cholesterol # 30 tabs 05/16/24 Unknown Rx apixaban 5 mg tablet (Eliquis) 5 mg PO BID 07/06/24 Un known History Allergy/AdvReac Type Severity Reaction Status Date / Time ciprofloxacin (From Cipro) Allergy Intermediate NEEDS Verified 05/16/24 16:52 FOLLOW-UP duloxetine Allergy Intermediate NEEDS Verified 05/16/24 16:52 FOLLOW-UP ibuprofen Allergy Intermediate NEEDS Verified 05/16/24 16:52 FOLLOW-UP meloxicam Allergy Intermediate NEEDS Verified 05/16/24 16:52 FOLLOW-UP Penicillins Allergy Intermediate NEEDS Verified 05/16/24 16:52 FOLLOW-UP sulfamethoxazole (From Allergy Intermediate NEEDS Verified 05/16/24 16:52 Septra) FOLLOW-UP trimethoprim (From Septra) Allergy Intermediate NEEDS Verified 05/16/24 16:52 FOLLOW-UP Surgical History History of repair of rectocele History of bladder repair surgery History of ERCP History of appendectomy History of cardiac radiofrequency ablation (RFA) S/P hernia repair Social History household members: family housing: house Smoking Status: Never smoker alcohol intake: never substance use type: does not use ROS Constitutional Constitutional: Denies fatigue, fever(s), poor appetite, weight gain or weight loss Gastrointestinal Gastrointestinal: Denies belching, bloating, change in bowel habits, change in stool character, chewing difficulty, coffee ground emesis, constipation, cramping, diarrhea, dyspepsia, dysphagia, early satiety, excessive flatus, fecalincontinence, heartburn, hematemesis, hematochezia, hemorrhoids, loose stools, melena, nausea, odynophagia, rectal bleeding, tenesmus, vomiting or weight changes Physical Exam Const alert, oriented x3, no apparent distress and healthy appearing General Appearance: cooperative GI normal to inspection, nondistended, normoactive bowel sounds, soft to palpation,non-tender and non-distended Percussion: normal to percussion Rectal Exam: deferred Assessment & Plan Assessment/Plan (1) History of biliary stent insertion: (2) Choledocholithiasis: PLAN: Assessment and Plan Assessment and Plan (1) History of biliary stent insertion: Status: Acute (2) GI bleed: Status: Acute (3) Choledocholithiasis: Status: Acute (4) Ischemic colitis: Status: Acute Plan: Mrs. Giron is an 88-year-old white female who was admitted initially on 02/22/2024 and discharged to the transitional care unit on 02/25/2024 at which time she was found to have new stroke. She also had JOANNA at that time. She was discharged to transitional care unit for ongoing rehab on Eliquis. On 02/29/2024she was noted to be positive for blood in her stool and her Eliquis was held. She then complained of abdominal pain and some right-sided weakness so she was transferred to the emergency department for evaluation. CT of her head was unremarkable and CT of the abdomen pelvis showed ileitis with fecal retention. MRCP was also recommended in the CT report as there were apparent dilated ducts. The patient denied any fevers, chills, nausea, or vomiting. Hemoglobin at that time was 9.6. Vital signs were overtly unremarkable and stable when compared to previous. She was admitted to the medical floor and I was consultedand recommended proceeding with an EGD. It was performed on 03/01/2024 and demonstrated normal esophagus, erythematous mucosa in the gastric body and antrum, no gross lesions to the second portion ofthe duodenum with no biopsies taken. Given and overtly unremarkable EGD and colonoscopy was recommended and patient did have a couple episodes of bleeding with the prep. On colonoscopy she was found to have patchy moderate inflammation in the rectosigmoid, sigmoid, and descending colon secondary to ischemic colitis which was biopsied. She was also found to have diverticulosis in the rectosigmoid, sigmoid, descending, splenic flexure and transverse colon. Rectal prolapse was also noted. She had nonbleeding internal hemorrhoids. It was felt that her GI bleeding was related to ischemic colitis. MRCP was performed and showed dilated ducts and the patient was taken for an ERCP on 03/07/2024 at which time she was found to have a single localized biliarystricture in the lower third of the main bile duct, the entire biliary tree was dilated and irregularity was found in the pancreatic duct in the body of the pancreas and the pancreatic tail duct, choledocholithiasis was found and complete removal of the stone was achieved by biliary sphincterotomy and balloonextraction, pancreatic sphincterotomy was also performed and a temporary stent was placed both in the common bile duct and the pancreatic duct. These will be removed today during ERCP. She was explained alternatives, risk, benefits include not withstanding bleeding, infection, sepsis, perforation, need for surgery and . She will have an ASA of 3. 07/12/24 1236 <Electronically signed by Joe Patterson DO> Cosigner Signature (if applicable): CC: MARLEE Suarez; Joe Patterson DO~ Signed [facility] Work Phone: 1(420) 708-634206-03-2025 Consult note [facility] Medical Records Department [address] [place] [address] Pre-Anesthesia Evaluation 07/12/24 1305 MR#: [id number] Acct: [id number] Name: MCKENNA GIRON Rep #:[id number] : 1935 88 From: Montana Mcdowell MD PCP: MARLEE Bolivar Status:[place] [facility] Y Race: C Location: [place] [address] ASA Classification* ASA Classification ASA Classification: 3 Assessment & Plan Anesthesia* Anesthesia Assessment Anesthesia Assessment: Discussed sedation and/or anesthesia options, risks, benefits, and alternatives with patient/parents/legal guardian/POA. Questions invited. The patient/parents/legal guardian/POA seems to understand and agrees to proceedwith anesthesia plan. Reviewed the physical assessment, medical history, allergy history and patient home medications list prior to surgery/procedure/anesthetic and documented any changes. Performed airway and anesthesia risk assessments. Anesthesia Type Anesthesia Type: MAC History Source History Obtained from:: Patient and Chart Anesthesia Focused Assessment* Temperature: 98.2 F Pulse Rate: 62 Blood Pressure: 131/73 Respiratory Rate: 18 Pulse Ox: 100 Oxygen Delivery Method: Room Air Airway Assessment Mouth opens: >3 cm Mallampati Score: IV Teeth Condition: Dentures (Upper partials are out.) and Partial (Patient has a lower partial) Neck Range of motion (ROM): Limited ROM (Slight decrease in extension) Focused Labs Anesthesia Preop lab: CBC WBC 6.1 K/mm3 (4.4-11.0) 05/20/24 11:45 05/20/24 RBC 3.37 M/mm3 (4.2-5.4) L 05/20/24 11:45 05/20/24 Hgb 10.7 g/dL (12.0-15.0) L 05/20/24 11:45 5 Hct 33.6 % (37-47) L 05/20/24 11:45 05/20/24 Plt Count 344 K/mm3 (150-450) 05/20/24 11:45 05/20/24 CHEMISTRY Potassium 4.4 mmol/L (3.3-5.1) 05/20/24 11:45 05/20/24 Sodium 141 mmol/L (133-145) 05/20/24 11:45 05/20/24 Magnesium 1.9 mg/dL (1.6-2.6) 03/08/24 06:57 03/08/24 Phosphorus 4.6 mg/dL (2.5-4.9) 03/08/24 06:57 03/08/24 BUN 47 mg/dL (4-19) H 05/20/24 11:45 05/20/24 Creatinine 1.28 mg/dL (0.70-1.20) H 05/20/24 11:45 Glucose 88 mg/dL (70-99) 05/20/24 11:45 05/20/24 POC Glucose 97 mg/dL (74-106) 02/29/24 16:06 02/29/24 TSH 3.370 uIU/mL (0.358-3.740) 02/23/24 06:04 02/09 06/03 COAG PT 16.7 SECONDS (11.7-14.9) H 02/25/24 05:09 02/09 08/03 Pre-Assessment Diagnosis/Proposed Procedure Planned Operative Procedure(s): ERCP Anesthesia History Anesthesia History - wood buffer: Anesthesia History - wood buffer Hx Hospitalization Yes: 02/2024 ABD PAIN, ERCP 07/06/24 15:32 Any Problems With Anesthesia No 07/06/24 15:32 Cholinesterase deficiency No 07/06/24 15:32 You/Your Family Experience No 07/06/24 15:32 fever (hyperthermia) with Relationship Recent Exposure to Contagious No 07/12/24 12:44 Disease Does patient have nerve No 07/06/24 15:32 stimulator Patient instructed to have device shut off --Does patient have Pacemaker No 07/12/24 12:44 or ICD? When Was Last Pacemaker Check QUESTION #4 FULL TEXT: You/Your Family Experience fever (hyperthermia) with Anesthesia Last Oral Intake Last Oral intake: Last Oral Intake NPO since 00:00 07/12/24 12:44 Meds taken in AM with sips of No 07/12/24 12:44 water? Meds patient instructed to take am of surgery PONV PONV - wood buffer: PONV - wood buffer Female Yes 07/06/24 15:32 HX of Motion Sickness No 07/06/24 15:32 HX of N/V After Surgery No 07/06/24 15:32 Non-Smoker Yes 07/06/24 15:32 Duration of Surgery greater No 07/06/24 15:32 than 60 minutes Number of Risk Factors 2 07/06/24 15:32 PONV Score Moderate Risk 07/06/24 15:32 Height & Weight Height & Weight: Anesthesia: Height & Weight Height 4 ft 8 in 07/12/24 12:44 Weight: 46 kg 07/12/24 12:44 Body Mass Index (BMI) 22.7 07/12/24 12:44 Respiratory Assessment Respiratory Assessment - wood buffer: Respiratory Tract Infection Hx - wood buffer Hx Respiratory Tract Infection No 07/06/24 15:32 STOP Sleep Apnea STOP Sleep Apnea - wood buffer: STOP Sleep Apnea - wood buffer Hx Hypertension Yes: CONTROLLED WITH MED 07/06/24 15:32 Hx Sleep Apnea No 07/06/24 15:32 CPAP BIPAP Do you snore loudly (louder No 07/06/24 15:32 than talking or can be heard Do you often feel tired/ No 07/06/24 15:32 fatigued/ sleepy during daytime? Has anyone observed you stop No 07/06/24 15:32 breathing during sleep? STOP Results Negative 07/06/24 15:32 QUESTION #5 FULL TEXT : Do you snore loudly (louder than talking or can be heard through closeddoors)? Tobacco Use History Tobacco Use History - wood buffer: Tobacco Use History - wood buffer Tobacco Use Smoking Status Never smoker 07/06/24 15:32 Hx Tobacco Use No 07/06/24 15:32 Years Smoking Packs Smoked per Day Smoking Cessation Date was within the last 15 years Hx Smoking Cessation Date Hx Smoking Cessation No 07/06/24 15:32 Counseling Hematologic Medial History Hematologic Hx - wood buffer: Hematologic Medical Hx - case management assistant Hx of Blood Transfusion Yes 07/06/24 15:32 Hx of Transfusion in last 3 No 07/06/24 15:32 Months Date of Last Transfusion (if within last 3 months) Ever experience any problems No 07/06/24 15:32 with transfusion(s)? Specify any problems Hx of Preganancy in last 3 N/A 07/06/24 15:32 Months Nurse Filling Out Transfusion NBUCHER 07/06/24 15:32 & Questions: Date: 07/06/24 07/06/24 15:32 Time: 15:37 07/06/24 15:32 Patient unable to answer at this time (ie. confused, unrespo /Reproduction History /Reproductive History - wood buffer: /Reproductive Hx- wood buffer Hx Now No 07/06/24 15:32 Gestational Age (in weeks): EDC: Hx Hx Para Hx Section SAB No 07/06/24 15:32 Active Medications Active Medications: Current Medications Generic Name Dose Route Start Last Admin Trade Name Freq PRN Reason Stop Dose Admin Lactated Ringer's 1,000 mls @ 15 mls/hr 07/12/24 12:30 07/12/24 12:56 IV 15 mls/hr .Q48H SAY Administration PFSH Medical History Wears hearing aid Loss of hearing Wears glasses Wears partial dentures Wears dentures Post-menopausal Walker as ambulation aid Ambulates with cane History of renal disease Low iron High cholesterol Diverticulosis History of hiatal hernia History of edema Non-smoker Cardiology follow-up encounter History of Holter monitoring History of echocardiogram Hypertension History of atrial fibrillation Choledocholithiasis Ischemic colitis Iron deficiency anemia Debility CKD stage 3b, 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 CVA (cerebral vascular accident) Renal failure 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, sinus Hyperlipidemia Aortic valve disease Cardiac arrhythmia Fibromyalgia CKD (chronic kidney disease) stage 3, GFR 30-59 ml/min Rheumatoid arthritis Osteoporosis Afib Essential (primary) hypertension Shoulder pain with history of repair of rotator cuff Sjogren syndrome Home Medications ?Medication ?Instructions ?Recorded ?Last Taken ?Type cholecalciferol (vitamin D3) 125 125 mcg PO QODAY supp lement 09/07/23 03/09/24 10:00 History mcg (5,000 unit) capsule gabapentin 300 mg capsule 300 mg PO BID Nerve pain 03/09/24 10:00 History mecobalamin (vitamin B12) 1,000 1,000 mcg PO QMWF supp lement 09/07/23 03/09/24 10:00 History mcg chewable tablet hydroxychloroquine 200 mg tablet 200 mg PO DAILY Immun osupressive 01/27/24 03/09/24 10:00 History acetaminophen 500 mg tablet 1,000 mg (2 x 500 mg) PO Q 6H PRN 04/01/24 Unknown Rx PRN Pain Score 1-10 #0 tabs amlodipine 5 mg tablet 5 mg PO DAILY 30 days #30 ta bs 04/01/24 Unknown Rx pantoprazole 40 mg tablet,delayed 40 mg PO DAILY 30 da ys #30 tabs 04/01/24 Unknown Rx release atorvastatin 40 mg tablet 40 mg PO DAILY cholesterol # 30 tabs 05/16/24 Unknown Rx apixaban 5 mg tablet (Eliquis) 5 mg PO BID 07/06/24 History Allergy/AdvReac Type Severity Reaction Status Date / Time ciprofloxacin (From Cipro) Allergy Intermediate NEEDS Verified 07/12/24 12:43 FOLLOW-UP duloxetine Allergy Intermediate NEEDS Verified 07/12/24 12:43 FOLLOW-UP ibuprofen Allergy Intermediate NEEDS Verified 07/12/24 12:43 FOLLOW-UP meloxicam Allergy Intermediate NEEDS Verified 07/12/24 12:43 FOLLOW-UP Penicillins Allergy Intermediate NEEDS Verified 07/12/24 12:43 FOLLOW-UP sulfamethoxazole (From Allergy Intermediate NEEDS Verified 07/12/24 12:43 ) FOLLOW-UP trimethoprim (From Septra) Allergy Intermediate NEEDS Verified 07/12/24 12:43 FOLLOW-UP Surgical History History of repair of rectocele History of bladder repair surgery History of ERCP History of appendectomy History of cardiac radiofrequency ablation (RFA) S/P hernia repair Social History household members: family housing: house Smoking Status: Never smoker alcohol intake: never substance use type: does not use Review of Systems (Anesthesia) ROS Narrative System reviewed and no additional complaints, except as documented. 07/12/24 1315 anastasiya KHAN> Date _ Montana Mcdowell MD Cosigner Signature: Date CC: ~ Signed [facility]06-03-2025 History and physical note [facility] Medical Records Department [address] [place] [address] History & Physical Exam 07/12/24 1233 MR#: [id number] Acct: [id number] Name: MCKENNA GIRON KRISTIE Rep #:[id number] : 1935 88 From: Joe Friend DO PCP: MARLEE Bolivar [place] [facility] [place] [address] HPI - General General Date of Admission: 07/12/24 Date of Service: 07/12/24 HPI Narrative MCKENNA GIRON, is a 88 F who presentsSHIRELISA GIRON, is a 88 F who presents to the office today for hospital follow up. [facility] hospitalization 02.29.24 - 03.09.24 abd pain --- GI consulted for bleeding / anemia EGD 03.01.24 Normal esophagus. Erythematous mucosa in the gastric body and antrum. No gross lesions in the second portion of the duodenum. No specimens collected. Colonoscopy 03.04.24 Patchy moderate inflammation was found in the recto-sigmoid colon, in the sigmoid colon and in the descending colon secondary to ischemic colitis. Biopsied. Diverticulosis in the recto-sigmoid colon, in the sigmoid colon, in the descending colon, at the splenic flexure and in the transverse colon. Rectal prolapse. Non-bleeding internal hemorrhoids. ERCP 03.07.24 A single localized biliary stricture was found in the lower third of the main bile duct. The stricture was indeterminate. The entire biliarytree was dilated, acquired. An irregularity was found in the pancreatic duct in the body of the pancreas and pancreatic duct in the tail of the pancreas. Choledocholithiasis was found. Complete removal was accomplished by biliary sphincterotomy and balloon extraction. A pancreatic sphincterotomy was performed. The biliary tree was swept and debris was found. A biliary sphincterotomy was performed. The biliary tree was swept. One temporary stent was placed into the common bile duct. OV 04.15.24 pt reports that she has been feeling well since hospitalization. Has had some bloating and discomfort on her R side, but states that this is infrequent. Reports normal bm and denies blood in the stool. 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 CVA (cerebral vascular accident) Renal failure 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, sinus Hyperlipidemia Aortic valve disease Cardiac arrhythmia Fibromyalgia CKD (chronic kidney disease) stage 3, GFR 30-59 ml/min Rheumatoid arthritis Osteoporosis Afib Essential (primary) hypertension Shoulder pain with history of repair of rotator cuff Sjogren syndrome Home Medications ?Medication ?Instructions ?Recorded ?Last Taken ?Type cholecalciferol (vitamin D3) 125 125 mcg PO QODAY supp lement 09/07/23 03/09/24 10:00 History mcg (5,000 unit) capsule gabapentin 300 mg capsule 300 mg PO BID Nerve pain 03/09/24 10:00 History mecobalamin (vitamin B12) 1,000 1,000 mcg PO QMWF supp lement 09/07/23 03/09/24 10:00 History mcg chewable tablet hydroxychloroquine 200 mg tablet 200 mg PO DAILY Immun osupressive 01/27/24 03/09/24 10:00 History acetaminophen 500 mg tablet 1,000 mg (2 x 500 mg) PO Q 6H PRN 04/01/24 Unknown Rx PRN Pain Score 1-10 #0 tabs amlodipine 5 mg tablet 5 mg PO DAILY 30 days #30 ta bs 04/01/24 Unknown Rx pantoprazole 40 mg tablet,delayed 40 mg PO DAILY 30 da ys #30 tabs 04/01/24 Unknown Rx release atorvastatin 40 mg tablet 40 mg PO DAILY cholesterol # 30 tabs 05/16/24 Unknown Rx apixaban 5 mg tablet (Eliquis) 5 mg PO BID 07/06/24 Un known History Allergy/AdvReac Type Severity Reaction Status Date / Time ciprofloxacin (From Cipro) Allergy Intermediate NEEDS Verified 05/16/24 16:52 FOLLOW-UP duloxetine Allergy Intermediate NEEDS Verified 05/16/24 16:52 FOLLOW-UP ibuprofen Allergy Intermediate NEEDS Verified 05/16/24 16:52 FOLLOW-UP meloxicam Allergy Intermediate NEEDS Verified 05/16/24 16:52 FOLLOW-UP Penicillins Allergy Intermediate NEEDS Verified 05/16/24 16:52 FOLLOW-UP sulfamethoxazole (From Allergy Intermediate NEEDS Verified 05/16/24 16:52 ) FOLLOW-UP trimethoprim (From ) Allergy Intermediate NEEDS Verified 05/16/24 16:52 FOLLOW-UP Surgical History History of repair of rectocele History of bladder repair surgery History of ERCP History of appendectomy History of cardiac radiofrequency ablation (RFA) S/P hernia repair Social History household members: family housing: house Smoking Status: Never smoker alcohol intake: never substance use type: does not use ROS Constitutional Constitutional: Denies fatigue, fever(s), poor appetite, weight gain or weight loss Gastrointestinal Gastrointestinal: Denies belching, bloating, change in bowel habits, change in stool character, chewing difficulty, coffee ground emesis, constipation, cramping, diarrhea, dyspepsia, dysphagia, earlysatiety, excessive flatus, fecalincontinence, heartburn, hematemesis, hematochezia, hemorrhoids, loose stools, melena, nausea, odynophagia, rectal bleeding, tenesmus, vomiting or weight changes Physical Exam Const alert, oriented x3, no apparent distress and healthy appearing General Appearance: cooperative GI normal to inspection, nondistended, normoactive bowel sounds, soft to palpation,non-tender and non-distended Percussion: normal to percussion Rectal Exam: deferred Assessment & Plan Assessment/Plan (1) History of biliary stent insertion: (2) Choledocholithiasis: PLAN: Assessment and Plan Assessment and Plan (1) History of biliary stent insertion: Status: Acute (2) GI bleed: Status: Acute (3) Choledocholithiasis: Status: Acute (4) Ischemic colitis: Status: Acute Plan: Mrs. Giron is an 88-year-old white female who was admitted initially on 02/22/2024 and discharged to the transitional care unit on 02/25/2024 at which time she was found to have new stroke. She also had JOANNA at that time. She was discharged to transitional care unit for ongoing rehab on Eliquis. On she was noted to be positive for blood in her stool and her Eliquis was held. She then complained of abdominal pain and some right-sided weakness so she was transferred to the emergency department for evaluation. CT of her head was unremarkable and CT of the abdomen pelvis showed ileitis with fecal retention. MRCP was also recommended in the CT report as there were apparent dilated ducts. The patient deniedany fevers, chills, nausea, or vomiting. Hemoglobin at that time was 9.6. Vital signs were overtly unremarkable and stable when compared to previous. She was admitted to the medical floor and I was consultedand recommended proceeding with an EGD. It was performed on 03/01/2024 and demonstrated normal esophagus, erythematous mucosa in the gastricbody and antrum, no gross lesions to the second portion ofthe duodenum with no biopsies taken. Given and overtly unremarkable EGD and colonoscopy was recommended and patient did have a couple episodes of bleeding with the prep. On colonoscopy she was found to have patchy moderate inflammation in the rectosigmoid, sigmoid, anddescending colon secondary to ischemic colitis which was biopsied. She was also found to have diverticulosis in the rectosigmoid, sigmoid, descending, splenic flexure and transverse colon. Rectal prolapse was also noted. She had nonbleeding internal hemorrhoids. It was felt that her GI bleeding wasrelated to ischemic colitis. MRCP was performed and showed dilated ducts and the patient was taken for an ERCP on 03/07/2024 at which time she was found to have a single localized biliarystricture in the lower third of the main bile duct, the entire biliary tree was dilated and irregularity was found in the pancreatic duct in the body of the pancreas and the pancreatic tail duct, choledocholithiasis was found and complete removal of the stone was achieved by biliary sphincterotomy and balloonextraction, pancreatic sphincterotomy was also performed and a temporary stent was placed both in the common bile duct and the pancreatic duct. These will be removed today during ERCP. She was explained alternatives, risk, benefits include not withstanding bleeding, infection, sepsis, perforation, need for surgery and . She will have an ASA of 3. 07/12/24 1236 Cosigner Signature (if applicable): CC: MARLEE Suarez; Joe Friend, DO~ Signed [facility]06-03-[address] [facility]03-07-2025 Radiology Diagnostic study [facility]02-19-[address] [facility]01-29-2025 Evaluation note* Diagnosis Onset Date Resolution Status Admit Date Afib acute March 09, 2024 3:40pm Choledocholithiasis acute 2024 3:40pm CVA (cerebral vascular accident) acu te March 09, 2024 3:40pm Debility acute March 09, 2024 3:40pm Ischemic colitis acute March 09, 2024 3:40pm Neuropathic pain acute March 09, 2024 3:40pm Rheumatoid arthritis acute 2024 3:40pm Vitamin B12 deficiency acute Ja nuary 2024 3:40pm Vitamin D deficiency acute 2024 3:40pm Acute anemia resolved February 3:40pm Left shoulder pain resolved r y 2024 3:40pm Hyperlipidemia inactive March 092024 3:40pm Iron deficiency anemia inactive [facility] 2024 3:40pm Choledocholithiasis acute April 15, 2024 10:54am GI bleed acute April 15 10:54am History of biliary stent insertion acute April 15, 2024 10:54am Ischemic colitis acute April 10:54am Paroxysmal atrial fibrillation acute May 16, 2024 1:52pm Essential (primary) hypertension trupti ctive May 16, 2024 1:52pm Hyperlipidemia inactive May 16, 2024 1:52pm Choledocholithiasis acute July 12, 2024 12:21pm History of biliary stent insertion acute July 12, 2024 12:21pm [facility] Work Phone: 1(705) 909-125101-29-[address] [facility]01-29-[address] [facility]01-20-[address] [facility] 02-29-[address] [facility]01-16-[address] [facility]01-16-[address] [facility]12-21-[address] [facility]12-17-2024 Evaluation note* Diagnosis Onset Date Resolution Status Admit Date Dyspnea on minimal exertion acute January 26, 2024 11:08am Paroxysmal atrial fibrillation acute January 26, 2024 11:08am Essential (primary) hypertension trupti ctive January 26, 2024 11:08am Hyperlipidemia inactive January 092023 11:08am Acute exacerbation of CHF (congestive heart failure) resolved Decem pete 2023 4:56pm Bradycardia, sinus inactive Decemb er 2023 4:56pm Paroxysmal atrial fibrillation acute February 19, 2024 3:27pm Essential (primary) hypertension trupti ctive February 19, 2024 3:27pm Hyperlipidemia inactive February 182024 3:27pm CKD stage 3b, 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 acute February 22, 2024 6:22pm CVA (cerebral vascular accident) acu te February 22, 2024 6:22pm Debility acute February 22, 2024 6:22pm Elevated INR acute February 6:22pm Supratherapeutic INR acute Fran patricia 2024 6:22pm Tremor acute February 22, 2024 6:22pm CKD (chronic kidney disease) stage 3, GFR 30-59 ml/min chronic Januar y 2024 6:22pm JOANNA (acute kidney injury) resolved February 22, 2024 6:22pm Hyperkalemia resolved February 6:22pm Cerebral infarction involvin g left cerebellar artery inactive February 092024 6:22pm Essential (primary) hypertension trupti ctive February 22, 2024 6:22pm Renal failure inactive February 6:22pm Afib acute February 25, 2024 1:53pm CKD stage 3b, 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 acute February 25, 2024 1:53pm CVA (cerebral vascular accident) acu te February 25, 2024 1:53pm Debility acute February 25, 2024 1:53pm Neuropathic pain acute February 25, 2024 1:53pm Rheumatoid arthritis acute 2024 1:53pm Vitamin B12 deficiency acute [facility] 2024 1:53pm Vitamin D deficiency acute Fran patricia2024 1:53pm JOANNA (acute kidney injury) resolved February 25, 2024 1:53pm Diarrhea resolved February 25, 2024 1:53pm Hyperkalemia resolved February 1:53pm Essential (primary) hypertension trupti ctive February 25, 2024 1:53pm Hyperlipidemia inactive February 242024 1:53pm Iron deficiency anemia inactive [facility] 2024 1:53pm Choledocholithiasis acute 2024 9:27pm Ischemic colitis acute February 29, 2024 9:27pm Abdominal pain resolved February 282024 9:27pm Essential (primary) hypertension trupti ctive February 29, 2024 9:27pm Hyperlipidemia inactive February 282024 9:27pm Iron deficiency anemia inactive [facility] 2024 9:27pm Renal failure inactive February 9:27pm Afib acute March 09, 2024 3:40pm Choledocholithiasis acute 2024 3:40pm CVA (cerebral vascular accident) acu te March 09, 2024 3:40pm Debility acute Yeni 29th, 2025 3:40pm Ischemic colitis acute March 09, 2024 3:40pm Neuropathic pain acute March 09, 2024 3:40pm Rheumatoid arthritis acute 2024 3:40pm Vitamin B12 deficiency acute 2024 3:40pm Vitamin D deficiency acute 2024 3:40pm Acute anemia resolved February 3:40pm Left shoulder pain resolved 2024 3:40pm Hyperlipidemia inactive March 092024 3:40pm Iron deficiency anemia inactive [facility] 2024 3:40pm Choledocholithiasis acute April 15, 2024 10:54am GI bleed acute April 15 10:54am History of biliary stent insertion acute April 15, 2024 10:54am Ischemic colitis acute April 10:54am [facility] Work Phone: 1(820) 484-447112-17-2024 Evaluation note* Diagnosis Onset Date Resolution Status Admit Date Dyspnea on minimal exertion acute January 26, 2024 11:08am Paroxysmal atrial fibrillation acute January 26, 2024 11:08am Essential (primary) hypertension trupti ctive January 26, 2024 11:08am Hyperlipidemia inactive January 092023 11:08am Acute exacerbation of CHF (congestive heart failure) resolved Decem pete 2023 4:56pm Bradycardia, sinus inactive Decemb er 2023 4:56pm Paroxysmal atrial fibrillation acute February 19, 2024 3:27pm Essential (primary) hypertension trupti ctive February 19, 2024 3:27pm Hyperlipidemia inactive February 182024 3:27pm CKD stage 3b, 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 acute February 22, 2024 6:22pm CVA (cerebral vascular accident) acu te February 22, 2024 6:22pm Debility acute February 22, 2024 6:22pm Elevated INR acute February 6:22pm Supratherapeutic INR acute 2024 6:22pm Tremor acute February 22, 2024 6:22pm CKD (chronic kidney disease) stage 3, GFR 30-59 ml/min chronic 2024 6:22pm JOANNA (acute kidney injury) resolved February 22, 2024 6:22pm Hyperkalemia resolved February 6:22pm Cerebral infarction involvin g left cerebellar artery inactive February 092024 6:22pm Essential (primary) hypertension trupti ctive February 22, 2024 6:22pm Renal failure inactive February 6:22pm Afib acute February 25, 2024 1:53pm CKD stage 3b, 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 acute February 25, 2024 1:53pm CVA (cerebral vascular accident) acu te February 25, 2024 1:53pm Debility acute February 25, 2024 1:53pm Neuropathic pain acute February 25, 2024 1:53pm Rheumatoid arthritis acute 2024 1:53pm Vitamin B12 deficiency acute [facility] 2024 1:53pm Vitamin D deficiency acute 2024 1:53pm JOANNA (acute kidney injury) resolved February 25, 2024 1:53pm Diarrhea resolved February 25, 2024 1:53pm Hyperkalemia resolved February 1:53pm Essential (primary) hypertension trupti ctive February 25, 2024 1:53pm Hyperlipidemia inactive February 242024 1:53pm Iron deficiency anemia inactive [facility] 2024 1:53pm Choledocholithiasis acute 2024 9:27pm Ischemic colitis acute February 29, 2024 9:27pm Abdominal pain resolved February 282024 9:27pm Essential (primary) hypertension trupti ctive February 29, 2024 9:27pm Hyperlipidemia inactive February 282024 9:27pm Iron deficiency anemia inactive [facility] 2024 9:27pm Renal failure inactive February 9:27pm Afib acute March 09, 2024 3:40pm Choledocholithiasis acute 2024 3:40pm CVA (cerebral vascular accident) acu te March 09, 2024 3:40pm Debility acute March 09, 2024 3:40pm Ischemic colitis acute March 09, 2024 3:40pm Neuropathic pain acute March 09, 2024 3:40pm Rheumatoid arthritis acute 2024 3:40pm Vitamin B12 deficiency acute Lucas reyes 2024 3:40pm Vitamin D deficiency acute Fran gomez 2024 3:40pm Acute anemia resolved February 3:40pm Left shoulder pain resolved Shelby dove 2024 3:40pm Hyperlipidemia inactive March 092024 3:40pm Iron deficiency anemia inactive Lucas reyes 2024 3:40pm Choledocholithiasis acute April 15, 2024 10:54am GI bleed acute April 15 10:54am History of biliary stent insertion acute April 15, 2024 10:54am Ischemic colitis acute April 10:54am Paroxysmal atrial fibrillation acute May 16, 2024 1:52pm Essential (primary) hypertension trupti ctive May 16, 2024 1:52pm Hyperlipidemia inactive May 16, 2024 1:52pm [facility] Work Phone: 1(501) 374-987807-10-2024 Telephone encounter Note* Telephone Encounter - Stefanie Rosas), AMNA - 08/19/2023 6:20 PM EDT Patient calling with would like to schedule an appointment with audiology to evaluate current hearing aids. Patient denies any new or worsening symptoms of which a provider is not aware:Yes Difficulty hearing using the hearing aids placed by [employer] in [place] no injury to the ears. Patient was conferenced to [facility] in Appointment Center for Audiology appointment scheduling. [facility]07-10-2024 Miscellaneous Notes* Telephone Encounter - Stefanie Rosas Rn, RN - 08/19/2023 6:20 PM EDT Patient calling with would like to schedule an appointment with audiology to evaluate current hearing aids. Patient denies any new or worsening symptoms of which a provider is not aware:Yes Difficulty hearing using the hearing aids placed by [employer] in [place] no injury to the ears. Patient was conferenced to [facility] in [facility] appointment scheduling. [facility] Author Sam Angulo [facility] Note Date/Time July 12, 2024 2:47p [facility] Medical Records Department [address] [place] [address] Anesthesia Postop Eval I 07/12/24 1446 MR#: [id number] Acct: [id number] Name: MCKENNA GIRON Rep #:[id number] 25 : 1935 88 From: Sam Angulo PCP: VIKA BolivarC Status:REG SDC Y Race: C Location: [place] [address] Anesthesia: Postop Eval I Current Vital Signs Temperature: 97 F Pulse Rate: 88 Blood Pressure: 108/58 Respiratory Rate: 14 Pulse Ox: 98 Oxygen Delivery Method: Room Air Assessment Airway patent: Yes Spontaneous unlabored respirations: Yes Mental status: Awake and Calm nausea: No Vomiting: No Anesthesia Complication: No Fluid Hydration Crystalloid volume administer (ml): 500 Total IV fluid infused: 500 Progress Note Anesthesia document: Postop Eval 1 completed: Yes 07/12/24 144 <Electronically signed by Sam Angulo > Date _ Sam Jacobson Signature: Date CC: ~ Signed [facility] Work Phone: Chief Complaint and Reason for Visit Chief Complaint Admit Date INT LABS December 29, 2023 10:16am 3 M FU January 26, 2024 11:08am EORDERS January 26, 2024 12:19pm FLUID OVERLOAD January 27, 2024 4:56pm FLUID OVERLOAD January 28, 2024 3:36pm FLUID OVERLOAD January 29, 2024 4:05pm FLUID OVERLOAD January 30, 2024 10:29am DYSPNEA February 08, 2024 11:30am DYSPNEA February 08, 2024 12:00pm 2 M FU February 19, 2024 3 :27pm NEW ONSET HEAD TREMOR February 20, 2024 8:11am STROKE JOANNA HYPERKALEMIA February 21 6:22pm STROKE JOANNA HYPERKALEMIA February 21 7:05pm STROKE JOANNA HYPERKALEMIA February 22 7:38am EKG February 23, 2024 9 :12am STROKE JOANNA HYPERKALEMIA February 23 2:18pm STROKE JOANNA HYPERKALEMIA February 24 10:54am STROK & JOANNA February 25, 2024 1 :53pm GI BLEED February 29, 2024 9 :18pm ABDOMINAL PAIN February 29, 2024 9 :27pm ABDOMINAL PAIN February 29, 2024 1 0:02pm ABDOMINAL PAIN March 01, 2024 2 :47pm ABDOMINAL PAIN March 01, 2024 5 :07pm ABDOMINAL PAIN March 02, 2024 1 0:30am ABDOMINAL PAIN March 03, 2024 1 0:02am ABDOMINAL PAIN March 03, 2024 4 :38pm ABDOMINAL PAIN March 04, 2024 1 1:23am ABDOMINAL PAIN March 04, 2024 4 :03pm ABDOMINAL PAIN March 05, 2024 1 1:25am ABDOMINAL PAIN March 06, 2024 1 0:26am ABDOMINAL PAIN March 07, 2024 1 :11pm ABDOMINAL PAIN March 07, 2024 7 :41pm ABDOMINAL PAIN March 08, 2024 6 :52pm ABDOMINAL PAIN March 09, 2024 1 :15pm ABD PAIN March 09, 2024 3 :40pm Hospital FU and scope FU April 15, 2024 10:54am Reason for Visit Admit Date Dyspnea on minimal exertion January 11:08am Paroxysmal atrial fibrillation January 26, 2024 11:08am Essential (primary) hypertension Decembe r 2023 11:08am Hyperlipidemia January 26, 2024 11:08am Acute exacerbation of CHF (congestive he art failure) January 27, 2024 4:56pm Bradycardia, sinus January 27, 2024 4:56pm Paroxysmal atrial fibrillation February 092024 3:27pm Essential (primary) hypertension February 19, 2024 3:27pm Hyperlipidemia February 19, 2024 3 :27pm CKD stage 3b, 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 February 092024 6:22pm CVA (cerebral vascular accident) February 22, 2024 6:22pm Debility February 22, 2024 6 :22pm Elevated INR February 22, 2024 6 :22pm Supratherapeutic INR February 22, 2024 6:22pm Tremor February 22, 2024 6 :22pm CKD (chronic kidney disease) stage 3, GF R 30-59 ml/min February 22, 2024 6:22pm JOANNA (acute kidney injury) February 22, 2024 6:22pm Hyperkalemia February 22, 2024 6 :22pm Cerebral infarction involving left cereb ellar artery February 22, 2024 6:22pm Essential (primary) hypertension February 22, 2024 6:22pm Renal failure February 22, 2024 6 :22pm Afib February 25, 2024 1 :53pm CKD stage 3b, 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 February [id number] 1:53pm CVA (cerebral vascular accident) February 25, 2024 1:53pm Debility February 25, 2024 1 :53pm Neuropathic pain February 25, 2024 1 :53pm Rheumatoid arthritis February 25, 2024 1:53pm Vitamin B12 deficiency February 24 1:53pm Vitamin D deficiency February 25, 2024 1:53pm JOANNA (acute kidney injury) February 25, 2024 1:53pm Diarrhea February 25, 2024 1 :53pm Hyperkalemia February 25, 2024 1 :53pm Essential (primary) hypertension February 25, 2024 1:53pm Hyperlipidemia February 25, 2024 1 :53pm Iron deficiency anemia February 24 1:53pm Choledocholithiasis February 29, 2024 9 :27pm Ischemic colitis February 29, 2024 9 :27pm Abdominal pain February 29, 2024 9 :27pm Essential (primary) hypertension February 29, 2024 9:27pm Hyperlipidemia February 29, 2024 9 :27pm Iron deficiency anemia February 28 9:27pm Renal failure February 29, 2024 9 :27pm Afib March 09, 2024 3 :40pm Choledocholithiasis March 09, 2024 3 :40pm CVA (cerebral vascular accident) March 09, 2024 3:40pm Debility March 09, 2024 3 :40pm Ischemic colitis March 09, 2024 3 :40pm Neuropathic pain March 09, 2024 3 :40pm Rheumatoid arthritis March 09, 2024 3:40pm Vitamin B12 deficiency March 09 3:40pm Vitamin D deficiency March 09, 2024 3:40pm Acute anemia March 09, 2024 3 :40pm Left shoulder pain March 09, 2024 3 :40pm Hyperlipidemia March 09, 2024 3 :40pm Iron deficiency anemia March 09 3:40pm Choledocholithiasis April 15, 2024 10:5 4am GI bleed April 15, 2024 10:5 4am History of biliary stent insertion April 15, 2024 10:54am Ischemic colitis April 15, 2024 10:5 4am Chief Complaint Admit Date 3 M FU January 26, 2024 11:08am EORDERS January 26, 2024 12:19pm FLUID OVERLOAD January 27, 2024 4:56pm FLUID OVERLOAD January 28, 2024 3:36pm FLUID OVERLOAD January 29, 2024 4:05pm FLUID OVERLOAD January 30, 2024 10:29am DYSPNEA February 08, 2024 11:30am DYSPNEA February 08, 2024 12:00pm 2 M FU February 19, 2024 3 :27pm NEW ONSET HEAD TREMOR February 20, 2024 8:11am STROKE JOANNA HYPERKALEMIA February 21 6:22pm STROKE JOANNA HYPERKALEMIA February 21 7:05pm STROKE JOANNA HYPERKALEMIA February 22 7:38am EKG February 23, 2024 9 :12am STROKE JOANNA HYPERKALEMIA February 23 2:18pm STROKE JOANNA HYPERKALEMIA February 24 10:54am STROK & JOANNA February 25, 2024 1 :53pm GI BLEED February 29, 2024 9 :18pm ABDOMINAL PAIN February 29, 2024 9 :27pm ABDOMINAL PAIN February 29, 2024 1 0:02pm ABDOMINAL PAIN March 01, 2024 2 :47pm ABDOMINAL PAIN March 01, 2024 5 :07pm ABDOMINAL PAIN March 02, 2024 1 0:30am ABDOMINAL PAIN March 03, 2024 1 0:02am ABDOMINAL PAIN March 03, 2024 4 :38pm ABDOMINAL PAIN March 04, 2024 1 1:23am ABDOMINAL PAIN March 04, 2024 4 :03pm ABDOMINAL PAIN March 05, 2024 1 1:25am ABDOMINAL PAIN March 06, 2024 1 0:26am ABDOMINAL PAIN March 07, 2024 1 :11pm ABDOMINAL PAIN March 07, 2024 7 :41pm ABDOMINAL PAIN March 08, 2024 6 :52pm ABDOMINAL PAIN March 09, 2024 1 :15pm ABD PAIN March 09, 2024 3 :40pm Hospital FU and scope FU April 15, 2024 10:54am 2 [facility] May 16, 2024 1:52 pm Reason for Visit Admit Date Dyspnea on minimal exertion January 11:08am Paroxysmal atrial fibrillation January 26, 2024 11:08am Essential (primary) hypertension Decembe r 2023 11:08am Hyperlipidemia January 26, 2024 11:08am Acute exacerbation of CHF (congestive he art failure) January 27, 2024 4:56pm Bradycardia, sinus January 27, 2024 4:56pm Paroxysmal atrial fibrillation February 092024 3:27pm Essential (primary) hypertension February 19, 2024 3:27pm Hyperlipidemia February 19, 2024 3 :27pm CKD stage 3b, 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 February 092024 6:22pm CVA (cerebral vascular accident) February 22, 2024 6:22pm Debility February 22, 2024 6 :22pm Elevated INR February 22, 2024 6 :22pm Supratherapeutic INR February 22, 2024 6:22pm Tremor February 22, 2024 6 :22pm CKD (chronic kidney disease) stage 3, GF R 30-59 ml/min February 22, 2024 6:22pm JOANNA (acute kidney injury) February 22, 2024 6:22pm Hyperkalemia February 22, 2024 6 :22pm Cerebral infarction involving left cereb ellar artery February 22, 2024 6:22pm Essential (primary) hypertension February 22, 2024 6:22pm Renal failure February 22, 2024 6 :22pm Afib February 25, 2024 1 :53pm CKD stage 3b, 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 February 092024 1:53pm CVA (cerebral vascular accident) February 25, 2024 1:53pm Debility February 25, 2024 1 :53pm Neuropathic pain February 25, 2024 1 :53pm Rheumatoid arthritis February 25, 2024 1:53pm Vitamin B12 deficiency February 24 1:53pm Vitamin D deficiency February 25, 2024 1:53pm JOANNA (acute kidney injury) February 25, 2024 1:53pm Diarrhea February 25, 2024 1 :53pm Hyperkalemia February 25, 2024 1 :53pm Essential (primary) hypertension February 25, 2024 1:53pm Hyperlipidemia February 25, 2024 1 :53pm Iron deficiency anemia February 24 1:53pm Choledocholithiasis February 29, 2024 9 :27pm Ischemic colitis February 29, 2024 9 :27pm Abdominal pain February 29, 2024 9 :27pm Essential (primary) hypertension February 29, 2024 9:27pm Hyperlipidemia February 29, 2024 9 :27pm Iron deficiency anemia February 28 9:27pm Renal failure February 29, 2024 9 :27pm Afib March 09, 2024 3 :40pm Choledocholithiasis March 09, 2024 3 :40pm CVA (cerebral vascular accident) March 09, 2024 3:40pm Debility March 09, 2024 3 :40pm Ischemic colitis March 09, 2024 3 :40pm Neuropathic pain March 09, 2024 3 :40pm Rheumatoid arthritis March 09, 2024 3:40pm Vitamin B12 deficiency March 09 3:40pm Vitamin D deficiency March 09, 2024 3:40pm Acute anemia March 09, 2024 3 :40pm Left shoulder pain March 09, 2024 3 :40pm Hyperlipidemia March 09, 2024 3 :40pm Iron deficiency anemia March 09 3:40pm Choledocholithiasis April 15, 2024 10:5 4am GI bleed April 15, 2024 10:5 4am History of biliary stent insertion April 15, 2024 10:54am Ischemic colitis April 15, 2024 10:5 4am Paroxysmal atrial fibrillation May 1:52pm Essential (primary) hypertension May [id number] 1:52pm Hyperlipidemia May 16, 2024 1:52 pm Chief Complaint Admit Date ABD PAIN March 09, 2024 3 :40pm Hospital FU and scope FU April 15, 2024 10:54am 2 M FU May 16, 2024 1:52 pm Reason for Visit Admit Date Afib March 09, 2024 3 :40pm Choledocholithiasis March 09, 2024 3 :40pm CVA (cerebral vascular accident) March 09, 2024 3:40pm Debility March 09, 2024 3 :40pm Ischemic colitis March 09, 2024 3 :40pm Neuropathic pain March 09, 2024 3 :40pm Rheumatoid arthritis March 09, 2024 3:40pm Vitamin B12 deficiency March 09 3:40pm Vitamin D deficiency March 09, 2024 3:40pm Acute anemia March 09, 2024 3 :40pm Left shoulder pain March 09, 2024 3 :40pm Hyperlipidemia March 09, 2024 3 :40pm Iron deficiency anemia March 09 3:40pm Choledocholithiasis April 15, 2024 10:5 4am GI bleed April 15, 2024 10:5 4am History of biliary stent insertion April 15, 2024 10:54am Ischemic colitis April 15, 2024 10:5 4am Paroxysmal atrial fibrillation May 1:52pm Essential (primary) hypertension May 162024 1:52pm Hyperlipidemia May 16, 2024 1:52 pm Choledocholithiasis July 12, 2024 12:21 pm History of biliary stent insertion July 12, 2024 12:21pm Advance Directives No Advanced Directives Records Found Advance Directive Response Recorded Date/ Time Living Will No January 26, 2 024 7:02pm Power of Traffic Director No January 27, 2024 7:02pm Living Will No February 21 9:02pm Power of Traffic Director No February 22, 2024 9:02pm Living Will Yes February 28 11:26pm Power of Traffic Director Yes February 29, 2024 11:26pm Name of Medical Power of Traffic Director Anna Brar, granddaughter February 29, 2024 11:26p m Living Will Yes March 10 12:50pm Power of Traffic Director Yes March 10, 2024 12:50pm Name of Medical Power of Traffic Director Anna Meza, granddaughter March 10, 2024 12:50pm Living Will Yes February 25 5:33pm Power of Traffic Director Yes February 26, 2024 5:33pm Name of Medical Power of Traffic Director pt unsure February 26, 2024 5:33pm Advance Directive Response Recorded Date/ Time Living Will No January 26, 7:02pm Do you have a Healthcare Power of Traffic Director? No January 27, 2024 7:02pm Living Will No February 21 9:02pm Do you have a Healthcare Power of Traffic Director? No February 22, 2024 9:02pm Living Will Yes February 28 11:26pm Do you have a Healthcare Power of Traffic Director? Yes February 29, 2024 11:26pm Name of Medical Power of Traffic Director Anna Brar, granddaughter February 29, 2024 11:26p m Living Will Yes March 10 12:50pm Do you have a Healthcare Power of Traffic Director? Yes March 10, 2024 12:50pm Name of Medical Power of Traffic Director Anna Meza, granddaughter March 10, 2024 12:50pm Living Will Yes February 25 5:33pm Do you have a Healthcare Power of Traffic Director? Yes February 26, 2024 5:33pm Name of Medical Power of Traffic Director pt unsure February 26, 2024 5:33pm Advance Directive Response Recorded Date/ Time Living Will Yes March 10 12:50pm Do you have a Healthcare Pow er of Traffic Director? Yes March 10, 2024 12:50pm Name of Medical Power of Traffic Director Anna Meza, granddaughter March 10, 2024 12:50pm Do you have a Healthcare Pow er of Traffic Director? Yes July 06, 2024 3:32pm Summary Purpose Family History No Family History Records Found Additional Source Comments Source Comments (unrecognize d section and content) In the event this informatio n is protected by the Federal Confidentiality of Alcohol and Drug Abuse Patient Records regulations: The Federal rules restrict any use of the information to criminally investigate or prosecute any alcohol or drug abuse patient.[facility] Reason for Visit (unrecogniz ed section and content) Reason Comments Appointment Care Teams (unrecognized sec tion and content) Team Status: Active Member Role Status Dates Dario Mcnally MD Family Provider Active MARLEE Bolivar Primary Care Provider Active Team Status: Inactive Member Role Status Dates Keke Suarez NP-C Primary Care Provider Active Start: December 29, 2023 End: December 29, 2023 Betty Rodriguez NP, THIRD LOADER-C Attending Provider Active Start: December 29, 2023 End: December 29, 2023 Betty Rodriguez NP THIRD LOADER-C Referring Provider Active Start: December 29, 2023 End: December 29, 2023 Team Status: Inactive Member Role Status Dates Keke Suarez NP-Deejay Primary Care Provider Active Start: January 26, 2024 End: January 26, 2024 Keke Suarez NP-C Referring Provider Active St art: January 26, 2024 End: January 26, 2024 KECIA Eugene Attending Provider Active Start: January 26, 2024 End: January 26, 2024 Team Status: Inactive Member Role Status Dates Keke Suarez NP-Deejay Primary Care Provider Active Start: January 26, 2024 End: January 26, 2024 KECIA Eugene Attending Provider Active Start: January 26, 2024 End: January 26, 2024 KECIA Eugene Referring Provider Active Start: January 26, 2024 End: January 26, 2024 Team Status: Inactive Member Role Status Dates Keke Suarez NP-C Primary Care Provider Active Start: January 27, 2024 End: January 30, 2024 Dr. Eyad Cuellar MD Emergency Provider Active Sta rt: January 27, 2024 End: January 30, 2024 Dr. Perla Kingston MD Admit Provider Active Star t: January 27, 2024 End: January 30, 2024 Dr. Perla Kingston MD Other Provider Active Star t: January 27, 2024 End: January 30, 2024 Dr. Clotilde Tamayo MD Attending Provider Active Start: January 27, 2024 End: January 30, 2024 Team Status: Active Member Role Status Dates Keke Suarez NP-C Primary Care Provider Active Start: January 28, 2024 Dr. Eyad Cuellar MD Emergency Provider Active Sta rt: January 28, 2024 Dr. Perla Kingston MD Admit Provider Active Star t: January 28, 2024 Dr. Perla Kingston MD Other Provider Active Star t: January 28, 2024 Dr. Clotilde Tamayo MD Attending Provider Active Start: January 28, 2024 Dr. Clotilde Tamayo MD Other Provider Active St art: January 28, 2024 Team Status: Active Member Role Status Dates Keke Suarez NP-C Primary Care Provider Active Start: January 29, 2024 Dr. Eyad Cuellar MD Emergency Provider Active Sta rt: January 29, 2024 Dr. Perla Kingston MD Admit Provider Active Star t: January 29, 2024 Dr. Perla Kingston MD Other Provider Active Star t: January 29, 2024 Dr. Clotilde Tamayo MD Attending Provider Active Start: January 29, 2024 Dr. Clotilde Tamayo MD Other Provider Active St art: January 29, 2024 Team Status: Active Member Role Status Dates Keke Suarez NP-C Primary Care Provider Active Start: January 30, 2024 Dr. Eyad Cuellar MD Emergency Provider Active Sta rt: January 30, 2024 Dr. Perla Kingston MD Admit Provider Active Star t: January 30, 2024 Dr. Perla Kingston MD Other Provider Active Star t: January 30, 2024 Dr. Clotilde Tamayo MD Attending Provider Active Start: January 30, 2024 Dr. Clotilde Tamayo MD Other Provider Active St art: January 30, 2024 Team Status: Inactive Member Role Status Dates Keke Suarez NP-C Primary Care Provider Active Start: February 08, 2024 End: February 08, 2024 Katharine MCDONNELL, PA Attending Provider Active Start: February 08, 2024 End: February 08, 2024 Katharine MCDONNELL PA Referring Provider Active Start: February 08, 2024 End: February 08, 2024 Team Status: Active Member Role Status Dates Kekephilly Suaerz , THIRD LOADER-C Primary Care Provider Active Start: February 08, 2024 Dr. Colt Rodriguez MD Attending Provider Active S tart: February 08, 2024 Katharine MCDONNELL, PA Referring Provider Active Start: February 08, 2024 Team Status: Inactive Member Role Status Dates Keke Erick , THIRD LOADER-C Primary Care Provider Active Start: February 19, 2024 End: February 19, 2024 Kekephilly Suarez , THIRD LOADER-C Referring Provider Active St art: February 19, 2024 End: February 19, 2024 Katharine MCDONNELL, PA Attending Provider Active Start: February 19, 2024 End: February 19, 2024 Team Status: Inactive Member Role Status Dates Keke Erick , THIRD LOADER-C Primary Care Provider Active Start: February 20, 2024 End: February 20, 2024 Keke Suarez , THIRD LOADER-C Attending Provider Active St art: February 20, 2024 End: February 20, 2024 Keke Suarez , THIRD LOADER-C Referring Provider Active St art: February 20, 2024 End: February 20, 2024 Team Status: Inactive Member Role Status Dates Keke Erick , THIRD LOADER-C Primary Care Provider Active Start: February 22, 2024 End: February 25, 2024 Johnson Retana MD Emergency Provider Active Star t: February 22, 2024 End: February 25, 2024 Dr. Elsy Zafar DO Admit Provider Active Start : February 22, 2024 End: February 25, 2024 Dr. Elsy Zafar DO Other Provider Active Start : February 22, 2024 End: February 25, 2024 Dr. Warner Bustamante MD Attending Provider Active Start: February 22, 2024 End: February 25, 2024 Neel Longoria MD Other Provider Active Start: Lucas reyes 2024 End: February 25, 2024 Dr. Ana Luisa Edmonds MD Other Provider Active Start: February 22, 2024 End: February 25, 2024 Bella Tejeda MD Other Provider Active Start : February 22, 2024 End: February 25, 2024 Dr. Verónica Jordan DO Other Provider Active St art: February 22, 2024 End: February 25, 2024 Dr. Ragini Gauthier MD Other Provider Active Start: February 22, 2024 End: February 25, 2024 Dr. Dex Caruso MD Other Provider Active Sta rt: February 22, 2024 End: February 25, 2024 Dr. Nica Owen MD Other Provider Active Start : February 22, 2024 End: February 25, 2024 Dr. Elijah Vásquez MD Other Provider Active Start: February 22, 2024 End: February 25, 2024 Dr. Markus Kruse MD Other Provider Active Start : February 22, 2024 End: February 25, 2024 Dr. Mark De Leon MD Other Provider Active Sta rt: February 22, 2024 End: February 25, 2024 Kerrie Swann MD Other Provider Active Start : February 22, 2024 End: February 25, 2024 Dr. Dario Bolanos MD Other Provider Active St art: February 22, 2024 End: February 25, 2024 Dr. Estrellita Alcantara MD Other Provider Active Start : February 22, 2024 End: February 25, 2024 Dr. Emma Jara MD Other Provider Active Sta rt: February 22, 2024 End: February 25, 2024 Dr. Rickie Mckeon MD Other Provider Active Start: February 22, 2024 End: February 25, 2024 Dr. Royce Bustos MD Other Provider Active St art: February 22, 2024 End: February 25, 2024 Dr. Mo Abbott MD Other Provider Active Star t: February 22, 2024 End: February 25, 2024 Dr. Reinaldo Razo MD Other Provider Active St art: February 22, 2024 End: February 25, 2024 Dr. Melanie Zafar MD Other Provider Active Start: February 22, 2024 End: February 25, 2024 Storm Deutsch MD Other Provider Active Start: February 22, 2024 End: February 25, 2024 Dr. Marley Zafar DO Other Provider Active Sta rt: February 22, 2024 End: February 25, 2024 Team Status: Active Member Role Status Dates MARLEE Bolivar Primary Care Provider Active Start: February 22, 2024 Johnson Retana MD Emergency Provider Active Star t: February 22, 2024 Dr. Elsy Zafar DO Admit Provider Active Start : February 22, 2024 Dr. Elsy Zafar DO Attending Provider Active S tart: February 22, 2024 Dr. Elsy Zafar DO Other Provider Active Start : February 22, 2024 Team Status: Active Member Role Status Dates Keke Suarez THIRD LOADER-C Primary Care Provider Active Start: February 23, 2024 Johnson Retana MD Emergency Provider Active Star t: February 23, 2024 Dr. Elsy Zafar DO Admit Provider Active Start : February 23, 2024 Dr. Elsy Zafar DO Other Provider Active Start : February 23, 2024 Dr. Warner Bustamante MD Attending Provider Active Start: February 23, 2024 Dr. Warner Bustamante MD Other Provider Active Sta rt: February 23, 2024 Neel Longoria MD Other Provider Active Start: [facility] 2024 Dr. Ana Luisa Edmonds MD Other Provider Active Start: February 23, 2024 Bella Tejeda MD Other Provider Active Start : February 23, 2024 Dr. Verónica Jordan DO Other Provider Active St art: February 23, 2024 Dr. Ragini Gauthier MD Other Provider Active Start: February 23, 2024 Dr. Dex Caruso MD Other Provider Active Sta rt: February 23, 2024 Dr. Nica Owen MD Other Provider Active Start : February 23, 2024 Dr. Elijah Vásquez MD Other Provider Active Start: February 23, 2024 Dr. Markus Kruse MD Other Provider Active Start : February 23, 2024 Dr. Mark De Leon MD Other Provider Active Sta rt: February 23, 2024 Kerrie Swann MD Other Provider Active Start : February 23, 2024 Dr. Dario Bolanos MD Other Provider Active St art: February 23, 2024 Dr. Estrellita Alcantara MD Other Provider Active Start : February 23, 2024 Dr. Emma Jara MD Other Provider Active Sta rt: February 23, 2024 Dr. Rickie Mckeon MD Other Provider Active Start: February 23, 2024 Dr. Royce Bustos MD Other Provider Active St art: February 23, 2024 Dr. Mo Abbott MD Other Provider Active Star t: February 23, 2024 Dr. Reinaldo Razo MD Other Provider Active St art: February 23, 2024 Dr. Melanie Zafar MD Other Provider Active Start: February 23, 2024 Storm Deutsch MD Other Provider Active Start: February 23, 2024 Dr. Marley Zafar DO Other Provider Active Sta rt: February 23, 2024 Team Status: Active Member Role Status Dates Keke Suarez NP-C Primary Care Provider Active Start: February 23, 2024 End: February 23, 2024 Dr. Colt Rodriguez MD Attending Provider Active S tart: February 23, 2024 End: February 23, 2024 Dr. Colt Rodriguez MD Referring Provider Active S tart: February 23, 2024 End: February 23, 2024 Team Status: Active Member Role Status Dates Keke Suarez NP-C Primary Care Provider Active Start: February 24, 2024 Johnson Retana MD Emergency Provider Active Star t: February 24, 2024 Dr. Elsy Zafar DO Admit Provider Active Start : February 24, 2024 Dr. Elsy Zafar DO Other Provider Active Start : February 24, 2024 Dr. Warner Bustamante MD Attending Provider Active Start: February 24, 2024 Dr. Warner Bustamante MD Other Provider Active Sta rt: February 24, 2024 Neel Longoria MD [facility] Ana Luisa Edmonds MD Other Provider Active Start: February 24, 2024 Bella Tejeda MD Other Provider Active Start : February 24, 2024 Dr. Verónica Jordan DO Other Provider Active St art: February 24, 2024 Dr. Ragini Gauthier MD Other Provider Active Start: February 24, 2024 Dr. Dex Caruso MD Other Provider Active Sta rt: February 24, 2024 Dr. Nica Owen MD Other Provider Active Start : February 24, 2024 Dr. Elijah Vásquez MD Other Provider Active Start: February 24, 2024 Dr. Markus Kruse MD Other Provider Active Start : February 24, 2024 Dr. Mark De Leon MD Other Provider Active Sta rt: February 24, 2024 Kerrie Swann MD Other Provider Active Start : February 24, 2024 Dr. Dario Bolanos MD Other Provider Active St art: February 24, 2024 Dr. Estrellita Alcantara MD Other Provider Active Start : February 24, 2024 Dr. Emma Jara MD Other Provider Active Sta rt: February 24, 2024 Dr. Rickie Mckeon MD Other Provider Active Start: February 24, 2024 Dr. Royce Bustos MD Other Provider Active St art: February 24, 2024 Dr. Mo Abbott MD Other Provider Active Star t: February 24, 2024 Dr. Reinaldo Raoz MD Other Provider Active St art: February 24, 2024 Dr. Melanie Zafar MD Other Provider Active Start: February 24, 2024 Storm Deutsch MD Other Provider Active Start: February 24, 2024 Dr. Marley Zafar DO Other Provider Active Sta rt: February 24, 2024 Team Status: Active Member Role Status Dates MARLEE Bolivar Primary Care Provider Active Start: February 25, 2024 Johsnon Retana MD Emergency Provider Active Star t: February 25, 2024 Dr. Elsy Zafar DO Admit Provider Active Start : February 25, 2024 Dr. Elsy Zafar DO Other Provider Active Start : February 25, 2024 Dr. Warner Bustamante MD Attending Provider Active Start: February 25, 2024 Dr. Warner Bustamante MD Other Provider Active Sta rt: February 25, 2024 Neel Longoria MD [facility] Ana Luisa Edmonds MD Other Provider Active Start: February 25, 2024 Bella Tejeda MD Other Provider Active Start : February 25, 2024 Dr. Verónica Jordan DO Other Provider Active St art: February 25, 2024 Dr. Ragini Gauthier MD Other Provider Active Start: February 25, 2024 Dr. Dex Caruso MD Other Provider Active Sta rt: February 25, 2024 Dr. Nica Owen MD Other Provider Active Start : February 25, 2024 Dr. Elijah Vásquez MD Other Provider Active Start: February 25, 2024 Dr. Markus Kruse MD Other Provider Active Start : February 25, 2024 Dr. Mark De Leon MD Other Provider Active Sta rt: February 25, 2024 Kerrie Swann MD Other Provider Active Start : February 25, 2024 Dr. Dario Bolanos MD Other Provider Active St art: February 25, 2024 Dr. Estrellita Alcantara MD Other Provider Active Start : February 25, 2024 Dr. Emma Jara MD Other Provider Active Sta rt: February 25, 2024 Dr. Rickie Mckeon MD Other Provider Active Start: February 25, 2024 Dr. Royce Bustos MD Other Provider Active St art: February 25, 2024 Dr. Mo Abbott MD Other Provider Active Star t: February 25, 2024 Dr. Reinaldo Razo MD Other Provider Active St art: February 25, 2024 Dr. Melanie Zafar MD Other Provider Active Start: February 25, 2024 Storm Deutsch MD Other Provider Active Start: February 25, 2024 Dr. Marley Zafar DO Other Provider Active Sta rt: February 25, 2024 Team Status: Inactive Member Role Status Dates Keke Suarez NP-C Primary Care Provider Active Start: February 25, 2024 End: February 29, 2024 Dr. Segundo Sultana MD Admit Provider Active Star t: February 25, 2024 End: February 29, 2024 Dr. Segundo Sultana MD Attending Provider Active Start: February 25, 2024 End: February 29, 2024 Team Status: Active Member Role Status Dates VIKA BolivarC Primary Care Provider Active Start: February 29, 2024 Dr. Vasile Hernández DO Emergency Provider Active Start: February 29, 2024 Dr. Saleem Child MD Admit Provider Active Star t: February 29, 2024 Dr. Saleem Child MD Attending Provider Active Start: February 29, 2024 Dr. Saleem Child MD Other Provider Active Star t: February 29, 2024 Team Status: Inactive Member Role Status Dates Keke Suarez NP-C Primary Care Provider Active Start: February 29, 2024 End: March 09, 2024 Dr. Vasile Hernández DO Emergency Provider Active Start: February 29, 2024 End: March 09, 2024 Dr. Saleem Child MD Admit Provider Active Star t: February 29, 2024 End: March 09, 2024 Dr. Saleem Child MD Referring Provider Active Start: February 29, 2024 End: March 09, 2024 Dr. Saleem Child MD Other Provider Active Star t: February 29, 2024 End: March 09, 2024 Dr. Elsy Zafar DO Attending Provider Active S tart: February 29, 2024 End: March 09, 2024 Dr. Clotilde Tamayo MD Other Provider Active St art: February 29, 2024 End: March 09, 2024 Team Status: Active Member Role Status Dates Keke Suarez THIRD LOADER-C Primary Care Provider Active Start: February 29, 2024 Dr. Vasile Hernández DO Emergency Provider Active Start: February 29, 2024 Dr. Saleem Child MD Admit Provider Active Star t: February 29, 2024 Dr. Saleem Child MD Referring Provider Active Start: February 29, 2024 Dr. Saleem Child MD Other Provider Active Star t: February 29, 2024 Dr. Clotilde Tamayo MD Other Provider Active St art: February 29, 2024 Dr. Joe Patterson DO Attending Provider Active Start: February 29, 2024 Team Status: Active Member Role Status Dates Keke Suarez THIRD LOADER-C Primary Care Provider Active Start: March 01, 2024 Dr. Vasile Hernández DO Emergency Provider Active Start: March 01, 2024 Dr. Saleem Cihld MD Admit Provider Active Star t: March 01, 2024 Dr. Saleem Child MD Other Provider Active Star t: March 01, 2024 Dr. Clotilde Tamayo MD Attending Provider Active Start: March 01, 2024 Dr. Clotilde Tamayo MD Other Provider Active St art: March 01, 2024 Team Status: Active Member Role Status Dates Keke Suarez THIRD LOADER-C Primary Care Provider Active Start: March 01, 2024 Dr. Vasile Hernández DO Emergency Provider Active Start: March 01, 2024 Dr. Saleem Child MD Admit Provider Active Star t: March 01, 2024 Dr. Saleem Child MD Referring Provider Active Start: March 01, 2024 Dr. Saleem Child MD Other Provider Active Star t: March 01, 2024 Dr. Clotilde Tamayo MD Other Provider Active St art: March 01, 2024 Dr. Joe Patterson DO Attending Provider Active Start: March 01, 2024 Team Status: Active Member Role Status Dates Keke Suarez , THIRD LOADER-C Primary Care Provider Active Start: March 02, 2024 Dr. Vasile Hernández DO Emergency Provider Active Start: March 02, 2024 Dr. Saleem Child MD Admit Provider Active Star t: March 02, 2024 Dr. Saleem Child MD Other Provider Active Star t: March 02, 2024 Dr. Clotilde Tamayo MD Attending Provider Active Start: March 02, 2024 Dr. Clotilde Tamayo MD Other Provider Active St art: March 02, 2024 Team Status: Active Member Role Status Dates Keke Suarez , THIRD LOADER-C Primary Care Provider Active Start: March 03, 2024 Dr. Vasile Hernández DO Emergency Provider Active Start: March 03, 2024 Dr. Saleem Child MD Admit Provider Active Star t: March 03, 2024 Dr. Saleem Child MD Other Provider Active Star t: March 03, 2024 Dr. Clotilde Tamayo MD Attending Provider Active Start: March 03, 2024 Dr. Clotilde Tamayo MD Other Provider Active St art: March 03, 2024 Team Status: Active Member Role Status Dates Keke Suarez , THIRD LOADER-C Primary Care Provider Active Start: March 03, 2024 Dr. Vasile Hernández DO Emergency Provider Active Start: March 03, 2024 Dr. Saleem Child MD Admit Provider Active Star t: March 03, 2024 Dr. Saleem Child MD Referring Provider Active Start: March 03, 2024 Dr. Saleem Child MD Other Provider Active Star t: March 03, 2024 Dr. Clotilde Tamayo MD Other Provider Active St art: March 03, 2024 Dr. Joe Patterson DO Attending Provider Active Start: March 03, 2024 Team Status: Active Member Role Status Dates Keke Suarez THIRD LOADER-C Primary Care Provider Active Start: March 04, 2024 Dr. Vasile Hernández DO Emergency Provider Active Start: March 04, 2024 Dr. Saleem Child MD Admit Provider Active Star t: March 04, 2024 Dr. Saleem Child MD Other Provider Active Star t: March 04, 2024 Dr. Clotilde Tamayo MD Attending Provider Active Start: March 04, 2024 Dr. Coltilde Tamayo MD Other Provider Active St art: March 04, 2024 Team Status: Active Member Role Status Dates Keke Suarez THIRD LOADER-C Primary Care Provider Active Start: March 04, 2024 Dr. Vasile Hernández DO Emergency Provider Active Start: March 04, 2024 Dr. Saleem Child MD Admit Provider Active Star t: March 04, 2024 Dr. Saleem Child MD Referring Provider Active Start: March 04, 2024 Dr. Saleem Child MD Other Provider Active Star t: March 04, 2024 Dr. Clotilde Tamayo MD Other Provider Active St art: March 04, 2024 Dr. Joe Patterson DO Attending Provider Active Start: March 04, 2024 Team Status: Active Member Role Status Dates Keke Suarez THIRD LOADER-C Primary Care Provider Active Start: March 05, 2024 Dr. Vasile Hernández DO Emergency Provider Active Start: March 05, 2024 Dr. Saleem Child MD Admit Provider Active Star t: March 05, 2024 Dr. Saleem Child MD Other Provider Active Star t: March 05, 2024 Dr. Clotilde Tamayo MD Attending Provider Active Start: March 05, 2024 Dr. Clotilde Tamayo MD Other Provider Active St art: March 05, 2024 Team Status: Active Member Role Status Dates Keke Suarez THIRD LOADER-C Primary Care Provider Active Start: March 06, 2024 Dr. Vasile Hernández DO Emergency Provider Active Start: March 06, 2024 Dr. Saleem Child MD Admit Provider Active Star t: March 06, 2024 Dr. Saleem Child MD Other Provider Active Star t: March 06, 2024 Dr. Clotilde Tamayo MD Attending Provider Active Start: March 06, 2024 Dr. Clotilde Tamayo MD Other Provider Active St art: March 06, 2024 Team Status: Active Member Role Status Dates Keke Suarez THIRD LOADER-C Primary Care Provider Active Start: March 07, 2024 Dr. Vasile Hernández DO Emergency Provider Active Start: March 07, 2024 Dr. Saleem Child MD Admit Provider Active Star t: March 07, 2024 Dr. Saleem Child MD Referring Provider Active Start: March 07, 2024 Dr. Saleem Child MD Other Provider Active Star t: March 07, 2024 Dr. Elsy Zafar DO Other Provider Active Start : March 07, 2024 Dr. Clotilde Tamayo MD Other Provider Active St art: March 07, 2024 Dr. Joe Patterson DO Attending Provider Active Start: March 07, 2024 Team Status: Active Member Role Status Dates Keke Suarez THIRD LOADER-C Primary Care Provider Active Start: March 07, 2024 Dr. Vasile Hernández DO Emergency Provider Active Start: March 07, 2024 Dr. Saleem Child MD Admit Provider Active Star t: March 07, 2024 Dr. Saleem Child MD Other Provider Active Star t: March 07, 2024 Dr. Elsy Zafar DO Attending Provider Active S tart: March 07, 2024 Dr. Elsy Zafar DO Other Provider Active Start : March 07, 2024 Dr. Clotilde Taamyo MD Other Provider Active St art: March 07, 2024 Team Status: Active Member Role Status Dates Keke Suarez THIRD LOADER-C Primary Care Provider Active Start: March 08, 2024 Dr. Vasile Hernández DO Emergency Provider Active Start: March 08, 2024 Dr. Saleem Child MD Admit Provider Active Star t: March 08, 2024 Dr. Saleem Child MD Other Provider Active Star t: March 08, 2024 Dr. Elsy Zafar DO Attending Provider Active S tart: March 08, 2024 Dr. Elsy Zafar DO Other Provider Active Start : March 08, 2024 Dr. Clotilde Tamayo MD Other Provider Active St art: March 08, 2024 Team Status: Active Member Role Status Dates Keke Suarez THIRD LOADER-C Primary Care Provider Active Start: March 09, 2024 Dr. Vasile Hernández DO Emergency Provider Active Start: March 09, 2024 Dr. Saleem Child MD Admit Provider Active Star t: March 09, 2024 Dr. Saleem Child MD Other Provider Active Star t: March 09, 2024 Dr. Elsy Zafar DO Attending Provider Active S tart: March 09, 2024 Dr. Elsy Zafar DO Other Provider Active Start : March 09, 2024 Dr. lCotilde Tamayo MD Other Provider Active St art: March 09, 2024 Team Status: Inactive Member Role Status Dates Keke Suarez THIRD LOADER-C Primary Care Provider Active Start: March 09, 2024 End: April 07, 2024 Dr. Segundo Sultana MD Admit Provider Active Star t: March 09, 2024 End: April 07, 2024 Dr. Segundo Sultana MD Attending Provider Active Start: March 09, 2024 End: April 07, 2024 Dr. Ramirez Abdul DO Other Provider Active Start: March 09, 2024 End: April 07, 2024 Team Status: Inactive Member Role Status Dates Keke Suarez THIRD LOADER-C Primary Care Provider Active Start: April 15, 2024 End: April 15, 2024 Keke Suarez THIRD LOADER-C Referring Provider Active St art: April 15, 2024 End: April 15, 2024 Dr. Joe Patterson DO Attending Provider Active Start: April 15, 2024 End: April 15, 2024 Team Status: Inactive Member Role Status Dates Keke Suarez THIRD LOADER-C Primary Care Provider Active Start: April 15, 2024 End: April 15, 2024 Dr. Joe Patterson DO Attending Provider Active Start: April 15, 2024 End: April 15, 2024 Dr. Joe Patterson DO Referring Provider Active Start: April 15, 2024 End: April 15, 2024 Team Status: Inactive Member Role Status Dates Keke Suarez THIRD LOADER-C Primary Care Provider Active Start: May 16, 2024 End: May 16, 2024 Keke Suarez THIRD LOADER-C Referring Provider Active St art: May 16, 2024 End: May 16, 2024 Betty Rodriguez NP, THIRD LOADER-C Attending Provider Active Start: May 16, 2024 End: May 16, 2024 Team Status: Inactive Member Role Status Dates Keke Erick , THIRD LOADER-C Primary Care Provider Active Start: May 20, 2024 End: May 20, 2024 Kekephilly Suarez , THIRD LOADER-C Attending Provider Active St art: May 20, 2024 End: May 20, 2024 Team Status: Active Member Role Status Dates Keke Erick , THIRD LOADER-C Primary Care Provider Active Team Status: Inactive Member Role Status Dates Keke Erick , THIRD LOADER-C Primary Care Provider Active Start: July 12, 2024 End: July 12, 2024 Keke Erick , THIRD LOADER-C Referring Provider Active St art: July 12, 2024 End: July 12, 2024 Dr. Joe Patterson DO Attending Provider Active Start: July 12, 2024 End: July 12, 2024 Team Status: Active Member Role Status Dates Keke Erick , THIRD LOADER-C Primary Care Provider Active Start: July 12, 2024 Kekephilly Suarez , THIRD LOADER-C Referring Provider Active St art: July 12, 2024 Dr. Joe Patterson DO Attending Provider Active Start: July 12, 2024 Dr. Joe Patterson DO Other Provider Active St art: July 12, 2024 Team Status: Inactive Member Role Status Dates Kekephilly Suarez , THIRD LOADER-C Primary Care Provider Active Start: July 28, 2024 End: July 28, 2024 Dr. Marley Zafar DO Attending Provider Active Start: July 28, 2024 End: July 28, 2024 Dr. Marley Zafar DO Referring Provider Active Start: July 28, 2024 End: July 28, 2024 INFORMATION SOURCE (unrecogn ized section and content) DATE CREATED AUTHOR 08/05/2024 [facility] FOR RECORDS PERTAINING TO PATIENTS WHO ARE OR HAVE BEEN ENROLLED IN A CHEMICAL DEPENDENCY/SUBSTANCEABUSE PROGRAM, SOME INFORMATION MAY BE OMITTED. This clinical summary was aggregated from multiple sources. Caution should be exercised in using it in the provision of clinical care. This summary normalizes information from multiple sources, and as a consequence, information in this document may materially change the coding, format and clinical context of patient data. In addition, data may be omitted in some cases. CLINICAL DECISIONS SHOULD BE BASED ON THE PRIMARY CLINICAL RECORDS. [facility]. provides no warranty or guarantee of the accuracy or completeness of information in this document.
--- NOTE | 2024-08-27 15:45 | RAD_ITS ---
PROCEDURE: ELBOW MIN 3 VIEWS 08/27/2024 REASON FOR EXAM: INJURY TECHNIQUE: Right ELBOW MIN 3 VIEWS COMPARISON: None FINDINGS: No displaced fracture or traumatic malalignment. No significant joint effusion. Bone mineral density is subjectively normal. The soft tissues are unremarkable. RAD/Elbow min 3 Views IMPRESSION: No acute osseous abnormality of the right elbow. Reading Location: [facility]
--- NOTE | 2024-08-27 15:45 | RAD_ITS ---
PROCEDURE: WRIST MIN 3 VIEWS 08/27/2024 REASON FOR EXAM: INJURY TECHNIQUE: Right WRIST MIN 3 VIEWS COMPARISON: None FINDINGS: There are calcifications at the radial/palmar aspect of the distal radius on the oblique view. Calcifications at the ulnocarpal joint. Joint space narrowing and osteophyte formation is most pronounced at the 1st carpometacarpal and triscaphe joints. Bone mineral density is subjectively decreased. Mild soft tissue swelling. RAD/Wrist min 3 Views IMPRESSION: 1. Calcifications at the radial/palmar aspect of the distal radius could repre sent a minimally displaced radial styloid fracture. Consider immobilization and repeat imaging in 10-14 days. 2. Calcifications at the ulnocarpal joint may represent sequela of calcium pyr ophosphate deposition disease. 3. Osteoarthritis throughout the right wrist is worst at the 1st carpometacarp al and triscaphe joints. 4. Subjective osteopenia. Reading Location: [facility]
--- NOTE | 2024-08-27 15:45 | RAD_ITS ---
PROCEDURE: KNEE 4 OR MORE VIEWS 08/27/2024 REASON FOR EXAM: INJURY TECHNIQUE: Right KNEE 4 OR MORE VIEWS COMPARISON: None FINDINGS: Tiny mineralization adjacent to the lateral femoral condyle, including a curvilinear mineralization. Tiny focus of mineralization near the medial joint space may represent chondrocalcinosis. No significant joint effusion, though patient positioning limits evaluation. Vascular calcifications throughout the soft tissues. Bone mineral density is subjectively normal. RAD/Knee 4 or More Views IMPRESSION: Tiny mineralization adjacent to the lateral femoral condyle are nonspecific, an d could be posttraumatic (of unknown chronicity), though hydroxyapatite deposition, CPPD, or degenerative changes could appear si milar. Correlate with exam. Reading Location: [facility]
--- NOTE | 2024-08-27 15:45 | ED.VIS.FALL ---
HPI HPI - Fall History of Present Illness Chief Complaint: Fall Informant: patient and family Narrative Narrative: Here with daughter for evaluation mechanical fall around 8 AM this morning. Going into the garage from steps with her cane when she thinks she tripped over her cane. Pain right upper extremity right chest and neck. She is on Eliquis for history of A-fib. Denies any loss of consciousness. Able to ambulate however has pain in the right knee also. Denies nausea or vomiting. Denies dyspnea. Reports facial contusion. 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 CVA (cerebral vascular accident) Renal failure 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, sinus Hyperlipidemia Aortic valve disease Cardiac arrhythmia Fibromyalgia CKD (chronic kidney disease) stage 3, GFR 30-59 ml/min Rheumatoid arthritis Osteoporosis Afib Essential (primary) hypertension Shoulder pain with history of repair of rotator cuff Sjogren syndrome Home Medications ?Medication ?Instructions ?Recorded ?Last Taken ?Type cholecalciferol (vitamin D3) 125 125 mcg PO QODAY supplement 09/07/23 03/09/24 10:00 History mcg (5,000 unit) capsule gabapentin 300 mg capsule 300 mg PO BID Nerve pain 09/07/23 03/09/24 10:00 History mecobalamin (vitamin B12) 1,000 1,000 mcg PO QMWF supplement 09/07/23 03/09/24 10:00 History mcg chewable tablet hydroxychloroquine 200 mg tablet 200 mg PO DAILY Immunosupressive 01/27/24 03/09/24 10:00 History acetaminophen 500 mg tablet 1,000 mg (2 x 500 mg) PO Q6H PRN 04/01/24 Unknown Rx PRN Pain Score 1-10 #0 tabs amlodipine 5 mg tablet 5 mg PO DAILY 30 days #30 tabs 04/01/24 Unknown Rx pantoprazole 40 mg tablet,delayed 40 mg PO DAILY 30 days #30 tabs 04/01/24 Unknown Rx release atorvastatin 40 mg tablet 40 mg PO DAILY cholesterol #30 tabs 05/16/24 Unknown Rx apixaban 5 mg tablet (Eliquis) 5 mg PO BID 07/06/24 07/09/24 History Allergy/AdvReac Type Severity Reaction Status Date / Time ciprofloxacin (From Cipro) Allergy Intermediate NEEDS Verified 08/27/24 14:25 FOLLOW-UP duloxetine Allergy Intermediate NEEDS Verified 08/27/24 14:25 FOLLOW-UP ibuprofen Allergy Intermediate NEEDS Verified 08/27/24 14:25 FOLLOW-UP meloxicam Allergy Intermediate NEEDS Verified 08/27/24 14:25 FOLLOW-UP Penicillins Allergy Intermediate NEEDS Verified 08/27/24 14:25 FOLLOW-UP sulfamethoxazole (From Allergy Intermediate NEEDS Verified 08/27/24 14:25 ) FOLLOW-UP trimethoprim (From Octra) Allergy Intermediate NEEDS Verified 08/27/24 14:25 FOLLOW-UP Surgical History History of repair of rectocele History of bladder repair surgery History of ERCP History of appendectomy History of cardiac radiofrequency ablation (RFA) S/P hernia repair Social History household members: family housing: house Smoking Status: Never smoker alcohol intake: never substance use type: does not use ROS ROS ED Constitutional Constitutional ED: Denies chills, fever(s) or sweats ENT ENT ED: Denies sore throat Cardiovascular Cardiovascular: Denies chest pain, leg edema, palpitations or racing heartbeat Respiratory/Chest Respiratory/Chest: Denies cough, dyspnea or dyspnea on exertion Gastrointestinal Gastrointestinal: Denies abdominal pain, diarrhea, nausea or vomiting Genitourinary Genitourinary ED: Denies dysuria, hematuria or urinary frequency Musculoskeletal Musculoskeletal: Reports back pain, extremity pain, neck pain and other Details: Right facial contusion, neck pain, back pain, right elbow and wrist pain, right knee pain. Integumentary Denies rash Neurologic Neurologic: Denies headache(s), paresthesias or weakness EXAM Physical Exam Const Vital Signs: 08/27/24 14:24 08/27/24 14:32 08/27/24 15:25 Temperature 98.3 F Temperature Source Oral Pulse Rate 112 H 113 H Respiratory Rate 18 17 Respiratory Effort Normal Non-Labored Respiratory Depth Normal Respiratory Pattern Normal Blood Pressure 118/68 144/94 H Blood Pressure Mean 84 110 Pulse Ox 99 100 Oxygen Delivery Method Room Air Room Air Room Air 08/27/24 16:41 08/27/24 17:49 Temperature 98.3 F Temperature Source Pulse Rate 110 H 110 H Respiratory Rate 22 H 22 H Respiratory Effort Respiratory Depth Respiratory Pattern Blood Pressure 135/96 H 135/96 H Blood Pressure Mean 109 109 Pulse Ox 100 100 Oxygen Delivery Method Room Air Constitutional Narrative: Thin female, nontoxic. GCS 15. General Appearance ED: NAD HEENT Reports moist mucous membranes HEENT Narrative: Contusion across the right zygomatic bone. normocephalic Eyes General Eye ED: Yes normal appearance of both eyes Neck full ROM Neck Narrative: No midline tenderness, paracervical tenderness bilaterally. Chest Wall Chest Narrative: No anterior chest wall tenderness tender palpation right posterior ribs. No crepitus. No ecchymosis. Chest: tenderness Resp normal respiratory effort and normal air movement Resp Narrative: Symmetric breath sounds. Effort and Inspection: symmetric chest movement; Negative for respiratory distress Cardio regular rhythm and no murmurs Rate: tachycardic Peripheral Pulses: pulses 2+ throughout GI normal to inspection, nondistended, normoactive bowel sounds and non-tender Palpation: Negative for guarding or rebound tenderness present Back/Spine Back/Spine Narrative: No midline tenderness of thoracic or lumbar tenderness no step-offs. Extremity Extremity Narrative: Right upper extremity no shoulder tenderness. There is tender palpation at the elbow with no deformities no pain with pronation or supination. Ecchymosis distal radius with swelling no snuffbox tenderness. No hand tenderness. No deformities of the wrist. Left upper extremity: Full range of motion without any tenderness. Lower extremities negative logroll bilaterally. Knee extensors are intact. Negative varus valgus stress of the knee. Soft compartments of the legs. Pulses intact distally. Neuro oriented x3, CN's II-XII intact bilaterally and no sensory deficits noted Sensorium / Orientation: awake and alert Skin Skin Narrative: See above MDM MDM MDM Narrative Medical decision making narrative: Interventions / MDM: Differential diagnosis: Facial contusion, elbow contusion, fractures, chest wall contusion. Diagnosis considered but do not suspect: Intracranial hemorrhage, facial bone fracture, rib fractures, however CT negative. My EKG interpretation: Sinus tachycardia rate of 113, right bundle branch block, no ST changes or T wave version leads III nonspecific. Similar to EKG February 2024. Imaging independently reviewed and interpreted by myself: 3 view right elbow: No fracture or dislocation noted. 3 view right wrist: Radial styloid fracture. 4 view right knee: No fracture noted. CT head/facial bones/cervical spine no fracture no intracranial hemorrhage. CT chest without contrast: No rib fractures noted. No pneumothorax. Also read by radiology. External documents reviewed: N/A Test considered but not ordered:N/A ED course: Mechanical fall multiple areas of injury. She is on Eliquis. Tachycardic during my exam therefore EKG ordered. Will check basic labs. Trauma scans head neck chest with CTs. X-ray right wrist elbow and right knee. IV fentanyl for pain control. Images negative set for small radial styloid fracture on the wrist. Velcro wrist splint provided. She is able to ambulate with her cane with no assistance. She will use Tylenol as needed for pain control. She is given follow-up with orthopedics. All questions were answered. Re-evaluation: stable Disposition discussed with patient/family/significant other: Patient and daughter Case discussed with consulting clinician: N/A This note was generated with [employer] dictation software. It may contain incorrect words, spelling, and punctuation that were not noted in checking the note before signing. Lab Data Attestation: I reviewed the patient's lab results. Labs: Laboratory Results - last 24 hr 08/27/24 15:15 WBC 7.5 RBC 3.69 L Hgb 11.6 L Hct 34.5 L MCV 93.5 MCH 31.4 MCHC 33.6 RDW Std Deviation 45.3 H RDW Coeff of Rohit 13.3 Plt Count 270 MPV 8.8 Immature Gran % (Auto) 0.300 Neut % (Auto) 81.1 H Lymph % (Auto) 9.9 L [place] % (Auto) 6.9 Eos % (Auto) 1.1 Baso % (Auto) 0.7 Absolute Neuts (auto) 6.1 Absolute Lymphs (auto) 0.74 L Nucleated RBC % 0 PT 16.6 H INR 1.3 APTT 32.2 Sodium 139 Potassium 4.8 Chloride 103 Carbon Dioxide 23.2 Anion Gap 13 BUN 22 H Creatinine 1.11 Estim Creat Clear Calc 25.65 L Est GFR (MDRD) Non-Af 48 L BUN/Creatinine Ratio 19.5 Glucose 105 H Calcium 9.6 Radiography Diagnostic Testing: Clinical Impression(s) from Imaging Studies Brain CT 08/27/24 14:57 IMPRESSION: 1. No acute intracranial abnormality. Senescent changes. 2. Small right mastoid effusion. Reading Location: [id number] Cervical Spine CT 08/27/24 14:57 IMPRESSION: No displaced cervical spine fracture. Multilevel degenerative changes. Reading Location: [id number] Chest CT 08/27/24 14:57 IMPRESSION: 1. No acute cardiopulmonary abnormality. 2. Cardiomegaly with moderate to severe coronary calcification. Reading Location: [id number] Facial/Sinus 08/27/24 14:57 IMPRESSION: No displaced facial fracture. Reading Location: [id number] Elbow X-Ray 08/27/24 15:45 IMPRESSION: No acute osseous abnormality of the right elbow. Reading Location: [id number] Knee X-Ray 08/27/24 15:45 IMPRESSION: Tiny mineralization adjacent to the lateral femoral condyle are nonspecific, and could be posttraumatic (of unknown chronicity), though hydroxyapatite deposition, CPPD, or degenerative changes could appear similar. Correlate with exam. Reading Location: [id number] Wrist X-Ray 08/27/24 15:45 IMPRESSION: 1. Calcifications at the radial/palmar aspect of the distal radius could represent a minimally displaced radial styloid fracture. Consider immobilization and repeat imaging in 10-14 days. 2. Calcifications at the ulnocarpal joint may represent sequela of calcium pyrophosphate deposition disease. 3. Osteoarthritis throughout the right wrist is worst at the 1st carpometacarpal and triscaphe joints. 4. Subjective osteopenia. Reading Location: [facility] Discharge Plan Triage Chief Complaint: Fall ED Provider: Clifton Paige Dx/Rx/DC Orders Clinical Impression: Fall, Contusion of face, Contusion of rib on right side, Contusion of elbow, right, Displaced fracture of right radial styloid process, initial encounter for closed fracture, Contusion of knee, right, Chronic anticoagulation Instructions: Bruises (Contusions), ED Fracture, Upper Extremity Prescriptions: No Action gabapentin 300 mg capsule 300 mg PO BID mecobalamin (vitamin B12) 1,000 mcg tablet,chewable 1,000 mcg PO QMWF cholecalciferol (vitamin D3) 125 mcg (5,000 unit) capsule 125 mcg PO QODAY atorvastatin 40 mg tablet 40 mg PO DAILY Qty: 30 11RF hydroxychloroquine 200 mg tablet 200 mg PO DAILY amlodipine 5 mg Tablet 5 mg PO DAILY 30 Days Qty: 30 0RF acetaminophen 500 mg Tablet 1,000 mg PO Q6H PRN PRN (Reason: Pain Score 1-10) Qty: 0 0RF pantoprazole 40 mg Tablet,Delayed Release (Dr/Ec) 40 mg PO DAILY 30 Days Qty: 30 0RF Eliquis 5 mg Tablet 5 mg PO BID Primary Care Provider: Keke Suarez Referrals: Kishor Machado DO [Med Staff - Active Staff] - 1-2 Weeks Keke Suarez NP-C [Primary Care Provider] - Activity Restrictions/Additional Instructions: Your CT head face cervical spine negative. CT chest negative for any rib fractures. Elbow x-ray negative. Right knee x-ray negative. Right wrist x-ray with radial styloid fracture. Maintain the Velcro splint for comfort. Use Tylenol up to 1 g every 6 hours as needed. Follow-up with orthopedics Dr. Machado in 1 to 2 weeks. Print Language: Mohawk Disposition Disposition: Home, Self Care Discharge Date/Time: 08/27/24 17:51
[2024-08-27 15:46] LABS: Prothrombin Time (Protime)PT. 16.6 SECONDS (11.7-14.9)
[2024-08-27 15:47] LABS: Partial Thromboplast Time 32.2 Seconds (24.1-36.2)
[2024-08-27 16:03] LABS: Anion Gap 13 (5-15); BUN 22 mg/dL (4-19); BUN/Creat Ratio 19.5 RATIO (10-20); Calcium,Total 9.6 mg/dL (7.6-11.0); Carbon Dioxide 23.2 mmol/L (21.0-32.0); Chloride 103 mmol/L (98-108); Estimated Creatinine Clearance 25.65 ml/min (50-250); Glucose 105 mg/dL (70-99); Potassium 4.8 mmol/L (3.3-5.1)
[2024-08-27 16:41] VITALS: BP 135/96; PULSE 110; RESP 22; O2SAT 100
[2024-08-27 17:49] VITALS: BP 135/96; PULSE 110; RESP 22; TEMP 36.8; O2SAT 100
== END 2024-08-27 17:51 | disposition home or self-care (01) ==
PROVIDERS: Emergency Provider Emergency Medicine; PCP Nurse Practitioner Family; Referring Provider Emergency Medicine; Visit Provider Emergency Medicine
DX: S80.01XA Contusion of right knee, initial encounter (principal); I48.91 Unspecified atrial fibrillation; N18.32 Chronic kidney disease, stage 3b; Z79.01 Long term (current) use of anticoagulants; E78.00 Pure hypercholesterolemia, unspecified; S00.83XA Contusion of other part of head, initial encounter; I12.9 Hypertensive chronic kidney disease with stage 1 through stage 4 chronic kidney disease, or unspecified chronic kidney disease; S52.511A Displaced fracture of right radial styloid process, initial encounter for closed fracture; S20.20XA Contusion of thorax, unspecified, initial encounter; S50.01XA Contusion of right elbow, initial encounter; W10.9XXA Fall (on) (from) unspecified stairs and steps, initial encounter; Y92.59 Other trade areas as the place of occurrence of the external cause; Z86.73 Personal history of transient ischemic attack (TIA), and cerebral infarction without residual deficits; Z79.899 Other long term (current) drug therapy; Z90.49 Acquired absence of other specified parts of digestive tract
CPT/HCPCS: 70450; 70486; 71250; 72125; 73080; 73110; 73564; 80048; 85025; 85610; 85730; 93005; 96361; 96374; 99284; A4216

== ENCOUNTER → 2024-09-22 | Outpatient (CLI) | payer MEDICARE, SELFPAY ==
[2024-09-22 11:05] LABS: Hematocrit 36.2 % (37-47); Hemoglobin 11.8 g/dL (12.0-15.0); Immature Granulocytes Count 0.120 X10^3/uL (0.0-0.0); Mean Corp Hgb Conc 32.6 g/dL (32-36); Mean Corpuscular Volume 95.3 fL (81-99); Mean Platelet Vol. 8.7 fl (6.2-12.0); NRBC Flagged by Analyzer 0 % (0-5); Platelet Count 320 K/mm3 (150-450); RBC Distribution Width CV 14.0 % (11.6-14.6); RBC Distribution Width SD 48.5 fl (35.1-43.9); Red Blood Count 3.80 M/mm3 (4.2-5.4); White Blood Count 8.0 K/mm3 (4.4-11.0)
[2024-09-22 11:39] LABS: AST(SGOT) 28 U/L (<=31); Alanine Aminotransfer ALT/SGPT 22 U/L (<=34); Albumin, Serum 4.3 g/dL (3.4-4.8); Alkaline Phosphatase 188 U/L (35-104); Anion Gap 13 (5-15); BUN 37 mg/dL (4-19); BUN/Creat Ratio 35.4 RATIO (10-20); Calcium,Total 9.8 mg/dL (7.6-11.0); Carbon Dioxide 22.8 mmol/L (21.0-32.0); Chloride 107 mmol/L (98-108); Globulin 2.6 g/dL (2.2-4.2); Glucose 92 mg/dL (70-99); Potassium 4.1 mmol/L (3.3-5.1)
== END | disposition home or self-care (01) ==
LOC: LAB 09:49
PROVIDERS: PCP Nurse Practitioner Family; Referring Provider Internal Medicine Rheumatology; Visit Provider Internal Medicine Rheumatology
DX: M06.4 Inflammatory polyarthropathy (principal); Z79.899 Other long term (current) drug therapy; M35.00 Sjogren syndrome, unspecified; M79.7 Fibromyalgia
CPT/HCPCS: 36415; 80053; 85025

== ENCOUNTER → 2024-12-29 | Outpatient (CLI) | payer MEDICARE, SELFPAY ==
--- NOTE | 2024-12-29 13:02 | BI_ITS ---
EXAM: SCRN MAMM (CAD)W/ANGELO BILAT DATE: 12/29/2024 CLINICAL HISTORY: F, Age 89 y/o , SCREENING No family history. TECHNIQUE: Procedure Code: [id number] Modality: MG Procedure: SCRN MAMM (CAD)W/ANGELO BILAT COMPARISON: Prior exam(s) dated October 14, 2023.. FINDINGS: TISSUE DENSITY: There are scattered areas of fibroglandular density. Bilateral Breast Mammographic Findings: No significant masses, calcifications or other abnormalities are identified. Stable bilateral secretory calcifications. No suspicious masses, areas of developing architectural distortion, or suspicious calcifications. There has been no significant interval change. BI/SCRN MAMM (CAD)W/ANGELO BILAT IMPRESSION: Stable bilateral screening mammogram. OVERALL FINAL ASSESSMENT BI-RADS 2: BENIGN RECOMMENDATION: Routine annual follow-up in 1 Year Additional Recommendation none A letter with findings and recommendations will be mailed to the patient. Reading Location: [id number]
== END | disposition home or self-care (01) ==
LOC: OPBI 13:01
PROVIDERS: PCP Nurse Practitioner Family; Referring Provider Nurse Practitioner Family; Visit Provider Nurse Practitioner Family
DX: Z12.31 Encounter for screening mammogram for malignant neoplasm of breast (principal)
CPT/HCPCS: 77063; 77067

== ENCOUNTER → 2025-01-09 | Outpatient (CLI) | payer MEDICARE, SELFPAY ==
[2025-01-09 10:39] LABS: Hematocrit 34.2 % (37-47); Hemoglobin 11.2 g/dL (12.0-15.0); Mean Corp Hgb Conc 32.7 g/dL (32-36); Mean Corpuscular Volume 95.8 fL (81-99); Mean Platelet Vol. 8.9 fl (6.2-12.0); Platelet Count 283 K/mm3 (150-450); RBC Distribution Width CV 13.5 % (11.6-14.6); RBC Distribution Width SD 47.3 fl (35.1-43.9); Red Blood Count 3.57 M/mm3 (4.2-5.4); White Blood Count 5.6 K/mm3 (4.4-11.0)
[2025-01-09 11:13] LABS: PTHIN 97 pg/mL (11-61)
[2025-01-09 11:37] LABS: Albumin, Serum 4.1 g/dL (3.4-4.8); Anion Gap 10 (5-15); BUN 36 mg/dL (4-19); BUN/Creat Ratio 33.0 RATIO (10-20); Calcium,Total 9.0 mg/dL (7.6-11.0); Carbon Dioxide 24.3 mmol/L (21.0-32.0); Chloride 107 mmol/L (98-108); Glucose 103 mg/dL (70-99); Potassium 4.0 mmol/L (3.3-5.1); Vitamin D,25 Hydroxy 57.0 ng/mL (30-100)
== END | disposition home or self-care (01) ==
LOC: LAB 09:41
PROVIDERS: PCP Nurse Practitioner Family; Referring Provider Internal Medicine Nephrology; Visit Provider Internal Medicine Nephrology
DX: N18.32 Chronic kidney disease, stage 3b (principal); Z86.2 Personal history of diseases of the blood and blood-forming organs and certain disorders involving the immune mechanism
CPT/HCPCS: 36415; 80069; 82306; 83970; 85027